=== PATIENT | female | born 1980 | race Caucasian/White ===

== ENCOUNTER 2020-04-24 14:09 | Inpatient (IN) ==
--- OUTSIDE RECORDS SUMMARY | 2020-04-24 14:12 | External Medical Summary | Continuity of Care Document ---
:1980 Author Name Missy Delarosa, Provider Address Unavailable Unavailable , Care Team Providers Name Role Phone Lucie Delarosa, [email or web address] [email or web address], NO Unavailable Unavailable Unavailable Unavailable Unavailable Problems Late care affecting , antepartum (V23.7) ( O09.30) Encounter for anatomic survey (V28.81) (Z36.89) Allergies and Adverse Reactions No Known Drug Allergies (Allergy) Medications Vitamins TABS Refills: 0 Procedures History of Oral Surgery Tooth Extraction Status: Completed History of Knee Surgery Status: Complete d History of Dilation And Curettage Status : Completed Immunizations Immunizations not documented Family History Mother Family history of kidney disease (V18.69) (Z84.1) Status: Ac tive Family history of systemic lupus erythematosus (V19.4) (Z82. 69) Status: Active Social History - Smoking Status Smoker Plan of Treatment Planned Observations Planned Goals not documented Results No Known Results Results not documented
[2020-04-24] MEDS ORDERED: MAGNESIUM SULFATE / D5W 1 GM/100 ML BAG IV ONE (15:13)
[2020-04-24] MEDS ORDERED: methylPREDNISolone 125 MG/2 ML VIAL IV STA (15:13)
[2020-04-24] MEDS ORDERED: ALBUTEROL HFA 8 GM INHALER INH ONE (15:29)
--- NOTE | 2020-04-24 15:37 | Emergency Department Note ---
History of Present Illness General Chief complaint: Shortness of Breath/Dyspnea Stated complaint: sob/dizzy Time Seen by Provider: 04/24/20 15:04 Source: patient, EMS, RN notes reviewed and old records reviewed Mode of arrival: EMS Limitations: no limitations History of Present Illness Provider complaint: Shortness of breath Onset (ago): month(s) 1 Location: chest Radiation: extremity (left shoulder) Severity: mild Pain Consistency: + now resolved Current Pain Intensity: 0 Quality: + aching Relieved By: + immobilization Exacerbated By: + movement Associated symptoms: + shortness of breath; no diaphoresis, no fever/chills, no loss of appetite and no nausea/vomiting Treatments prior to arrival: other (inhaler) This is a 40-year-old female who presents emergency department complaining of shortness of breath anytime the patient moves. The patient states that this is been ongoing for the past month. She reports 1 month ago when she woke up she was having left-sided chest pain that radiated into her extremity. She describes the pain as worse with deep breath. She reports she called her primary care physician who prescribed her steroids as well as an inhaler. The pain eventually went away however she still feels short of breath anytime she walks. Home Medications Home Medications Medication Instructions Recorded Confirmed Type albuterol sulfate 2 puff INHALATION Q4 PRN 04/24/20 04/24/20 History buprenorphine-naloxone 1.5 tab SUBLINGUAL UD 04/24/20 04/24/20 History Allergies Allergy/AdvReac Type Severity Reaction Status Date / Time mushroom Allergy Severe ANAPHYLAXIS Verified 04/24/20 15:29 onion Allergy Severe ANAPHYLAXIS Verified 04/24/20 15:29 tramadol Allergy Mild RASH AND Verified 04/24/20 15:29 ITCHING ketorolac Allergy Unknown RASH Verified 04/24/20 15:29 green peppers Allergy Severe ANAPHYLAXIS Uncoded 04/24/20 15:29 Plasencia Pepper Allergy Unknown ANAPHYLAXIS Uncoded 04/24/20 15:29 FROM GREEN PEPPER Past Med/Surg History Medical History Hepatomegaly Pleural effusion on left Pleural effusion on right Pulmonary edema Transaminitis Social History Preferred Language: Singaporean Communication Ability: Effective 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: No Beliefs That Will Affect Care: None Current Living Situation: Spouse and Family Feels Safe at Home: Yes Smoking Status: Current every day smoker Tobacco Type: cigarettes ; Cigarettes Per Day: 10 ; Hx Alcohol Use: Yes Alcohol type: hard liquor Hx Substance Use: No Review of Systems A total of 10 systems reviewed and were otherwise negative Physical Exam Vital Signs Vital Signs - 24 hr 04/24/20 14:18 04/24/20 14:26 04/24/20 14:29 Temperature 37.1 C Temperature Source Oral Pulse Rate 91 H 97 H 92 H Pulse Rate from SpO2 Sensor 92 H Respiratory Rate 20 22 22 Respiratory Effort / Characteristics Non-Labored Spontaneous Respiratory Depth Normal Respiratory Pattern Regular Blood Pressure 116/58 L 116/58 L Blood Pressure Mean 93 77 Pulse Oximetry 99 98 Oxygen Delivery Method Nasal Cannula Oxygen Flow Rate 2 Sepsis Recent Fever Within 48 Hours No Sepsis Action Taken by Nursing No Action Required 04/24/20 14:38 04/24/20 14:40 04/24/20 14:50 Temperature Temperature Source Pulse Rate 95 H 93 H 90 Pulse Rate from SpO2 Sensor 96 H 93 H 90 Respiratory Rate 13 29 H 17 Respiratory Effort / Characteristics Respiratory Depth Respiratory Pattern Blood Pressure Blood Pressure Mean Pulse Oximetry 80 L 96 93 Oxygen Delivery Method Nasal Cannula Nasal Cannula Oxygen Flow Rate 2 2 Sepsis Recent Fever Within 48 Hours Sepsis Action Taken by Nursing 04/24/20 15:00 04/24/20 15:05 04/24/20 15:22 Temperature Temperature Source Pulse Rate 87 90 Pulse Rate from SpO2 Sensor 86 Respiratory Rate 23 20 Respiratory Effort / Characteristics Respiratory Depth Respiratory Pattern Blood Pressure 98/52 L Blood Pressure Mean 62 Pulse Oximetry 94 97 96 Oxygen Delivery Method Nasal Cannula Nasal Cannula Nasal Cannula Oxygen Flow Rate 2 2 Sepsis Recent Fever Within 48 Hours Sepsis Action Taken by Nursing VITAL SIGNS - Vital signs and nursing notes were reviewed. GENERAL - 40-year-old female appearing stated age who is in no acute distress. Communicates well with provider and answers questions appropriately. SKIN - Without rashes. HEAD - NC/AT. EYES - PERRL with EOMI bilaterally. Sclera anicteric. Palpebral conjunctiva pink and moist with no injection noted. EARS - No deformities of external structures noted on gross examination bilaterally. No pain elicited with palpation of the tragus bilaterally. External auditory canals without discharge or otorrhea. Tympanic membranes pearly galarza without retraction or bulging. No fluid or purulent material visualized behind the TM. Handle of malleus, umbo, cone of light, pars tensa/flaccid all easily visualized. NOSE - Midline and without cyanosis. No epistaxis or purulent drainage noted. Septum midline without deviation or septal hematoma noted. MOUTH/OROPHARYNX - Without perioral cyanosis. Buccal mucosa pink and moist and without leukoplakia. Tongue midline with equal elevation of palate bilaterally. No tonsillar hypertrophy, erythema, or exudates noted. dentition noted. NECK - Neck with FROM. Supple to palpation. lymphadenopathy noted. No nuchal rigidity. LUNGS - Chest wall symmetric without accessory muscle use, intercostals retractions, or central cyanosis. Normal vesicular breath sounds CTA B/L. No wheezes, rales, or rhonchi appreciated. CARDIAC - RRR with S1/S2. No murmur, rubs, or gallops appreciated. ABDOMEN - Abdominal contour without pulsations or visible masses. BS normoactive all four quadrants. No tenderness, palpable masses, hepatosplenome kameron, or ascites noted. EXTREMITIES - No clubbing or peripheral cyanosis. No pretibial edema present. +3/5 radial, posterior tibial, and dorsalis pedis pulses palpated throughout. +5/5 strength noted in UE/LE bilaterally. NEUROLOGIC - Cranial nerves II through XII grossly intact. Sensory intact to light touch throughout. Patellar reflexes +2/4. PSYCH - A&Ox3 and cooperates fully with examiner. Pt is very pleasant and interacts well with examiner. Course Administered Medications Discontinued Medications Acetaminophen (Tylenol) 325 mg PO Q6H PRN PRN Reason: Mild Pain Stop: 05/24/20 21:10 Last Admin: 04/26/20 07:41 Dose: 325 mg Documented by: [id number] Admin: 04/25/20 22:07 Dose: 325 mg Documented by: [id number] Albuterol (Ventolin Hfa) 2 puffs INH NOW ONE Stop: 04/24/20 15:30 Last Admin: 04/24/20 15:36 Dose: 2 puffs Documented by: [id number] Aspirin (Ecotrin Ectab) 81 mg PO NOW STA Stop: 04/24/20 20:13 Last Admin: 04/24/20 20:54 Dose: 81 mg Documented by: [id number] Aspirin (Ecotrin Ectab) 81 mg PO [facility] Stop: 05/25/20 08:59 Last Admin: 04/26/20 07:43 Dose: 81 mg Documented by: [id number] Admin: 04/25/20 08:18 Dose: 81 mg Documented by: [id number] Buprenorphine/Naloxone (Suboxone 8 Mg/2 Mg) 0.5 tab SL TID ALLY Stop: 05/24/20 21:59 Last Admin: 04/26/20 21:25 Dose: Not Given Documented by: [id number] Admin: 04/26/20 15:49 Dose: 0.5 tab Documented by: [id number] Admin: 04/26/20 07:53 Dose: 0.5 tab Documented by: [id number] Admin: 04/25/20 21:35 Dose: 0.5 tab Documented by: [id number] Admin: 04/25/20 14:55 Dose: 0.5 tab Documented by: [id number] Admin: 04/25/20 08:22 Dose: 0.5 tab Documented by: [id number] Admin: 04/24/20 22:23 Dose: 0.5 tab Documented by: [id number] Enoxaparin Sodium (Lovenox) 40 mg SQ QAM [facility] Stop: 05/25/20 08:59 Last Admin: 04/26/20 07:44 Dose: 40 mg Documented by: [id number] Admin: 04/25/20 08:18 Dose: 40 mg Documented by: [id number] Ferrous Sulfate (Feosol) 325 mg PO TIDM [facility] Stop: 05/26/20 07:59 Last Admin: 04/26/20 17:04 Dose: 325 mg Documented by: [id number] Admin: 04/26/20 12:04 Dose: 325 mg Documented by: [id number] Admin: 04/26/20 07:42 Dose: 325 mg Documented by: [id number] Folic Acid (Folvite) 1 mg PO QAM ALLY Stop: 05/26/20 08:59 Last Admin: 04/26/20 07:42 Dose: 1 mg Documented by: [id number] Furosemide (Lasix) 40 mg IV NOW STA Stop: 04/24/20 18:33 Last Admin: 04/24/20 18:51 Dose: 40 mg Documented by: [id number] Magnesium Sulfate/Dextrose (Magnesium Sulfate / D5w) 1 gm in 100 mls @ 50 mls/hr IV ONE ONE Stop: 04/24/20 17:12 Last Infusion: 04/24/20 17:21 Dose: 0 mls/hr Documented by: [id number] Admin: 04/24/20 15:30 Dose: 50 mls/hr Documented by: [id number] Ceftriaxone Sodium (Rocephin) 2,000 mg in 70 mls @ 140 mls/hr IV NOW STA Stop: 04/24/20 17:09 Last Infusion: 04/24/20 18:50 Dose: 0 mls/hr Documented by: [id number] Admin: 04/24/20 18:18 Dose: 140 mls/hr Documented by: [id number] Lorazepam (Ativan) 0.25 mg in 0.5 mls @ 0.5 mls/min IV Q4H PRN PRN Reason: Anxiety Stop: 05/24/20 21:10 Last Admin: 04/26/20 12:17 Dose: 0.5 mls/min Documented by: [id number] Admin: 04/25/20 21:38 Dose: 0.5 mls/min Documented by: [id number] Furosemide 40 mg/ Albumin (Human) 54 mls @ 54 mls/hr IV BID ALLY Stop: 04/25/20 21:59 Last Infusion: 04/25/20 23:37 Dose: 0 mls/hr Documented by: [id number] Admin: 04/25/20 21:38 Dose: 54 mls/hr Documented by: [id number] Infusion: 04/25/20 10:55 Dose: 0 mls/hr Documented by: [id number] Admin: 04/25/20 08:14 Dose: 54 mls/hr Documented by: [id number] Magnesium Sulfate/Dextrose (Magnesium Sulfate / D5w) 1 gm in 100 mls @ 50 mls/hr IV Q2H ALLY Stop: 04/25/20 04:38 Last Infusion: 04/25/20 05:03 Dose: 0 mls/hr Documented by: [id number] Admin: 04/25/20 02:58 Dose: 50 mls/hr Documented by: [id number] Infusion: 04/25/20 02:58 Dose: 50 mls/hr Documented by: [id number] Admin: 04/25/20 01:06 Dose: 50 mls/hr Documented by: [id number] Infusion: 04/25/20 01:06 Dose: 50 mls/hr Documented by: [id number] Admin: 04/24/20 23:26 Dose: 50 mls/hr Documented by: [id number] Furosemide 40 mg/ Syringe 4 mls @ 4 mls/min IV Q12H ALLY Stop: 05/26/20 05:59 Last Admin: 04/26/20 17:04 Dose: 4 mls/min Documented by: [id number] Admin: 04/26/20 05:51 Dose: 4 mls/min Documented by: [id number] Furosemide 20 mg/ Syringe 2 mls @ 4 mls/min IV ONE ONE Stop: 04/26/20 12:31 Last Admin: 04/26/20 12:48 Dose: 4 mls/min Documented by: [id number] Lorazepam (Ativan) 0.5 mg in 1 mls @ 0.5 mls/min IV Q6H PRN PRN Reason: Anxiety/Agitation Stop: 05/26/20 12:43 Last Admin: 04/26/20 19:47 Dose: 0.5 mls/min Documented by: [id number] Methylprednisolone 125 mg/ (Syringe) 2 mls @ 1.5 mls/min IV NOW STA Stop: 04/26/20 20:50 Last Admin: 04/26/20 21:00 Dose: 1.5 mls/min Documented by: [id number] Dexmedetomidine HCl 200 mcg/ (Sodium Chloride) 50 mls @ 4.92 mls/hr IV .[id number] ALLY; Protocol Stop: 04/30/20 20:44 Last Admin: 04/26/20 21:01 Dose: 0.2 mcg/kg/hr, 4.9 mls/hr Documented by: [id number] Cosigned by: [id number] Lorazepam (Ativan) 1 mg in 2 mls @ 2 mls/min IV NOW STA Stop: 04/26/20 20:50 Last Admin: 04/26/20 21:25 Dose: Not Given Documented by: [id number] Lorazepam (Ativan) 0.5 mg in 1 mls @ 1 mls/min IV NOW STA Stop: 04/26/20 23:25 Last Admin: 04/26/20 23:28 Dose: 1 mls/min Documented by: [id number] Ioversol (Optiray 320 125ml) 120 ml IV ONCE PRN PRN Reason: Interaction Checking Stop: 04/28/20 18:00 Last Admin: 04/24/20 18:02 Dose: 120 ml Documented by: [id number] Lorazepam (Ativan) 0.25 mg PO NOW STA Stop: 04/25/20 00:16 Last Admin: 04/25/20 00:30 Dose: 0.25 mg Documented by: [id number] Menthol (Nice) 1 vu BUCCAL Q1H PRN PRN Reason: Sore Throat/cough Stop: 05/26/20 17:51 Last Admin: 04/26/20 18:26 Dose: 1 vu Documented by: [id number] Methylprednisolone (Solumedrol) 125 mg IV NOW STA Stop: 04/24/20 15:14 Last Admin: 04/24/20 15:30 Dose: 125 mg Documented by: [id number] Metoprolol Tartrate (Lopressor) 12.5 mg PO BID [facility] Stop: 05/25/20 08:59 Last Admin: 04/26/20 19:46 Dose: 12.5 mg Documented by: [id number] Admin: 04/26/20 07:43 Dose: Not Given Documented by: [id number] Admin: 04/25/20 21:37 Dose: 12.5 mg Documented by: [id number] Admin: 04/25/20 14:54 Dose: Not Given Documented by: [id number] Miscellaneous (Remove Nicoderm Patch) 1 ea N/A DAILY@[id number] [facility] Stop: 05/25/20 08:58 Last Admin: 04/26/20 07:44 Dose: 1 ea Documented by: [id number] Admin: 04/25/20 08:27 Dose: 1 ea Documented by: [id number] Nicotine (Nicoderm Cq) 21 mg TD QAM [facility] Stop: 05/24/20 21:10 Last Admin: 04/26/20 07:44 Dose: 21 mg Documented by: [id number] Admin: 04/25/20 08:18 Dose: 21 mg Documented by: [id number] Admin: 04/24/20 22:22 Dose: 21 mg Documented by: [id number] Ondansetron HCl (Zofran) 4 mg IV NOW STA Stop: 04/24/20 16:41 Last Admin: 04/24/20 17:26 Dose: Not Given Documented by: [id number] Potassium Chloride (Klor-Con M20) 40 meq PO NOW STA Stop: 04/24/20 16:41 Last Admin: 04/24/20 17:25 Dose: 40 meq Documented by: [id number] Potassium Chloride (Klor-Con M20) 20 meq PO BID ALLY Stop: 05/25/20 08:59 Last Admin: 04/26/20 19:46 Dose: 20 meq Documented by: [id number] Admin: 04/26/20 07:43 Dose: 20 meq Documented by: [id number] Admin: 04/25/20 21:36 Dose: 20 meq Documented by: [id number] Admin: 04/25/20 08:18 Dose: 20 meq Documented by: [id number] Potassium Chloride (Klor-Con M20) 40 meq PO NOW STA Stop: 04/24/20 21:12 Last Admin: 04/24/20 22:09 Dose: 40 meq Documented by: [id number] Medical Decision Making Differential Diagnosis Cardiac ischemia, aortic dissection, pulmonary embolism, pneumothorax, pneumonia, pericarditis, myocarditis, esophageal rupture, GERD, cholecystitis, pancreatitis, musculoskeletal, as well as other pathologies. Medical Records Attestation: I reviewed the patient's medical records. Home Medications Current Medication List: was personally reviewed by me Laboratory Data Attestation: I reviewed the patient's lab results. Result diagrams: 04/26/20 20:25 04/26/20 21:39 Lab Results 04/24/20 04/24/20 04/24/20 Range/Units 15:20 15:20 15:44 WBC 9.96 (4.8-10.8) K/uL RBC 2.67 L (4.2-5.4) M/uL Hgb 8.7 L (12.0-16.0) g/dL Hct 26.9 L (37-47) % MCV 100.7 H (80-100) fL MCH 32.6 (25-34) pg MCHC 32.3 (32-36) g/dL RDW Std Deviation 69.5 H (36.4-46.3) fL RDW Coeff of Christine 19.2 H (11.5-14.5) % Plt Count 304 (130-400) K/uL MPV 10.2 (7.4-10.4) fL Immature Gran % (Auto) 0.2 % Neut % (Auto) 80.6 % Lymph % (Auto) 10.7 % [place] % (Auto) 7.8 % Eos % (Auto) 0.4 % Baso % (Auto) 0.3 % Reticulocyte % (Auto) 4.8 H (0.5-2.0) % Immature Gran # (Auto) 0.02 (0.00-0.02) K/uL Neut # (Auto) 8.02 H (1.4-6.5) K/uL Lymph # (Auto) 1.07 L (1.2-3.4) K/uL [place] # (Auto) 0.78 H (0.11-0.59) K/uL Eos # (Auto) 0.04 (0-0.5) K/uL Baso # (Auto) 0.03 (0-0.2) K/uL Reticulocyte # 0.13 H (0.02-0.10) 10^6/uL Absolute Nucleated RBC 0.00 (0-0) K/uL Nucleated RBC % (auto) 0.0 % ESR (0-21) mm/hr PT (9.0-12.0) Seconds INR (0.9-1.1) APTT (21.0-31.0) Seconds PTT Ratio D-Dimer (0-500) ug/L FEU Sodium (136-145) mmol/L Potassium (3.5-5.1) mmol/L Chloride (98-107) mmol/L Carbon Dioxide (21-32) mmol/L Anion Gap (3-11) BUN (7-18) mg/dl Creatinine (0.6-1.2) mg/dl Est Cr Clr Drug Dosing ml/min Est GFR ( Amer) Est GFR (Non-Af Amer) BUN/Creatinine Ratio (10-20) Glucose (70-99) mg/dl Calcium (8.5-10.1) mg/dl Ferritin (8-388) ng/ml Total Bilirubin (0.2-1) mg/dl AST (15-37) U/L ALT (12-78) U/L Alkaline Phosphatase (45-117) U/L Lactate Dehydrogenase (84-246) U/L Total Creatine Kinase (26-192) U/L CK-MB (CK-2) (0.5-3.6) ng/ml CK/CKMB % Calc Troponin I (0-0.045) ng/ml C-Reactive Protein (0-0.29) mg/dl NT-Pro-B Natriuret Pep (0-450) pg/ml Total Protein (6.4-8.2) gm/dl Albumin (3.4-5.0) gm/dl Globulin (2.5-4.0) gm/dl Albumin/Globulin Ratio (0.9-2) Lipase (73-393) U/L Urine Color Dark Yellow Urine Appearance Cloudy A (Clear) Urine pH 5.5 (4.5-7.5) Ur Specific [place] 1.016 (1.000-1.030) Urine Protein 3+ H (Negative) Urine Glucose (UA) Negative (Negative) Urine Ketones Trace H (Negative) Urine Blood 3+ H (Negative) Urine Nitrite Positive A (Negative) Urine Bilirubin 2+ H (Negative) Urine Urobilinogen Positive H (Negative) Ur Leukocyte Esterase 1+ H (Negative) Urine WBC (Auto) 10-30 H (0-5) /hpf Urine RBC (Auto) >30 H (0-4) /hpf U Hyaline Cast (Auto) 5-10 H (0-5) /lpf U Epithel Cells (Auto) >30 H (0-5) /lpf Urine Bacteria (Auto) Negative (Negative) Urine Test Negative (Negative) Blood Type Antibody Screen 04/24/20 04/24/20 04/24/20 Range/Units 15:44 15:44 15:44 WBC (4.8-10.8) K/uL RBC (4.2-5.4) M/uL Hgb (12.0-16.0) g/dL Hct (37-47) % MCV (80-100) fL MCH (25-34) pg MCHC (32-36) g/dL RDW Std Deviation (36.4-46.3) fL RDW Coeff of Christine (11.5-14.5) % Plt Count (130-400) K/uL MPV (7.4-10.4) fL Immature Gran % (Auto) % Neut % (Auto) % Lymph % (Auto) % [place] % (Auto) % Eos % (Auto) % Baso % (Auto) % Reticulocyte % (Auto) (0.5-2.0) % Immature Gran # (Auto) (0.00-0.02) K/uL Neut # (Auto) (1.4-6.5) K/uL Lymph # (Auto) (1.2-3.4) K/uL [place] # (Auto) (0.11-0.59) K/uL Eos # (Auto) (0-0.5) K/uL Baso # (Auto) (0-0.2) K/uL Reticulocyte # (0.02-0.10) 10^6/uL Absolute Nucleated RBC (0-0) K/uL Nucleated RBC % (auto) % ESR 76 H (0-21) mm/hr PT 15.2 H (9.0-12.0) Seconds INR 1.5 H (0.9-1.1) APTT 28.8 (21.0-31.0) Seconds PTT Ratio 1.0 D-Dimer 6300 H* (0-500) ug/L FEU Sodium 133 L (136-145) mmol/L Potassium 3.3 L (3.5-5.1) mmol/L Chloride 97 L (98-107) mmol/L Carbon Dioxide 27 (21-32) mmol/L Anion Gap 9.0 (3-11) BUN 23 H (7-18) mg/dl Creatinine 1.18 (0.6-1.2) mg/dl Est Cr Clr Drug Dosing 74.6 ml/min Est GFR ( Amer) 67.8 Est GFR (Non-Af Amer) 58.5 BUN/Creatinine Ratio 19.1 (10-20) Glucose 83 (70-99) mg/dl Calcium 6.9 L (8.5-10.1) mg/dl Ferritin 87.6 (8-388) ng/ml Total Bilirubin 2.4 H (0.2-1) mg/dl AST 51 H (15-37) U/L ALT 14 (12-78) U/L Alkaline Phosphatase 158 H (45-117) U/L Lactate Dehydrogenase (84-246) U/L Total Creatine Kinase 79 (26-192) U/L CK-MB (CK-2) < 1.0 (0.5-3.6) ng/ml CK/CKMB % Calc TNP Troponin I < 0.015 (0-0.045) ng/ml C-Reactive Protein 2.86 H (0-0.29) mg/dl NT-Pro-B Natriuret Pep 984 H (0-450) pg/ml Total Protein 7.6 (6.4-8.2) gm/dl Albumin 2.5 L (3.4-5.0) gm/dl Globulin 5.1 H (2.5-4.0) gm/dl Albumin/Globulin Ratio 0.5 L (0.9-2) Lipase 81 (73-393) U/L Urine Color Urine Appearance (Clear) Urine pH (4.5-7.5) Ur Specific [place] (1.000-1.030) Urine Protein (Negative) Urine Glucose (UA) (Negative) Urine Ketones (Negative) Urine Blood (Negative) Urine Nitrite (Negative) Urine Bilirubin (Negative) Urine Urobilinogen (Negative) Ur Leukocyte Esterase (Negative) Urine WBC (Auto) (0-5) /hpf Urine RBC (Auto) (0-4) /hpf U Hyaline Cast (Auto) (0-5) /lpf U Epithel Cells (Auto) (0-5) /lpf Urine Bacteria (Auto) (Negative) Urine Test (Negative) Blood Type Antibody Screen 04/24/20 04/24/20 Range/Units 15:44 16:46 WBC (4.8-10.8) K/uL RBC (4.2-5.4) M/uL Hgb (12.0-16.0) g/dL Hct (37-47) % MCV (80-100) fL MCH (25-34) pg MCHC (32-36) g/dL RDW Std Deviation (36.4-46.3) fL RDW Coeff of Christine (11.5-14.5) % Plt Count (130-400) K/uL MPV (7.4-10.4) fL Immature Gran % (Auto) % Neut % (Auto) % Lymph % (Auto) % [place] % (Auto) % Eos % (Auto) % Baso % (Auto) % Reticulocyte % (Auto) (0.5-2.0) % Immature Gran # (Auto) (0.00-0.02) K/uL Neut # (Auto) (1.4-6.5) K/uL Lymph # (Auto) (1.2-3.4) K/uL [place] # (Auto) (0.11-0.59) K/uL Eos # (Auto) (0-0.5) K/uL Baso # (Auto) (0-0.2) K/uL Reticulocyte # (0.02-0.10) 10^6/uL Absolute Nucleated RBC (0-0) K/uL Nucleated RBC % (auto) % ESR (0-21) mm/hr PT (9.0-12.0) Seconds INR (0.9-1.1) APTT (21.0-31.0) Seconds PTT Ratio D-Dimer (0-500) ug/L FEU Sodium (136-145) mmol/L Potassium (3.5-5.1) mmol/L Chloride (98-107) mmol/L Carbon Dioxide (21-32) mmol/L Anion Gap (3-11) BUN (7-18) mg/dl Creatinine (0.6-1.2) mg/dl Est Cr Clr Drug Dosing ml/min Est GFR ( Amer) Est GFR (Non-Af Amer) BUN/Creatinine Ratio (10-20) Glucose (70-99) mg/dl Calcium (8.5-10.1) mg/dl Ferritin (8-388) ng/ml Total Bilirubin (0.2-1) mg/dl AST (15-37) U/L ALT (12-78) U/L Alkaline Phosphatase (45-117) U/L Lactate Dehydrogenase 260 H (84-246) U/L Total Creatine Kinase (26-192) U/L CK-MB (CK-2) (0.5-3.6) ng/ml CK/CKMB % Calc Troponin I (0-0.045) ng/ml C-Reactive Protein (0-0.29) mg/dl NT-Pro-B Natriuret Pep (0-450) pg/ml Total Protein (6.4-8.2) gm/dl Albumin (3.4-5.0) gm/dl Globulin (2.5-4.0) gm/dl Albumin/Globulin Ratio (0.9-2) Lipase (73-393) U/L Urine Color Urine Appearance (Clear) Urine pH (4.5-7.5) Ur Specific [place] (1.000-1.030) Urine Protein (Negative) Urine Glucose (UA) (Negative) Urine Ketones (Negative) Urine Blood (Negative) Urine Nitrite (Negative) Urine Bilirubin (Negative) Urine Urobilinogen (Negative) Ur Leukocyte Esterase (Negative) Urine WBC (Auto) (0-5) /hpf Urine RBC (Auto) (0-4) /hpf U Hyaline Cast (Auto) (0-5) /lpf U Epithel Cells (Auto) (0-5) /lpf Urine Bacteria (Auto) (Negative) Urine Test (Negative) Blood Type A Positive Antibody Screen NEGATIVE Imaging Data Radiologist's Impression: [place], [place] [phone] CT Scan Report Patient: ELYSSA MURRAYAdmit Date: 04/24/20 MR#: [id number]: [address] Acct ID:[id number]: Date: 1980[facility] Zip: [place] [id number] Age: 40Location: ED Sex: F Room/Bed: Att Phy:Diagnosis: sob/dizzy Elva Phy: PCP,NOService Date: 04/24/20 Fam Phy:Interpreting Phy: Jeff Ferrera MD Admit Phy: Ordering Phy: Gary Brown MD cc: ~ CT ANGIOGRAM OF THE CHEST; CT SCAN OF THE ABDOMEN AND PELVIS WITH IV CONTRAST CLINICAL HISTORY: Abdominal distention. Dyspnea. COMPARISON STUDY: Chest x-ray dated 04/24/2020. Lumbar spine radiographs dated 07/25/2012. TECHNIQUE: Following the IV administration of 120 of Optiray 320, CT angiogram of the chest is performed from the upper abdomen to the thoracic inlet utilizing the pulmonary embolus protocol. Images are reviewed in the axial, sagittal, coronal planes. 3-D MIPS images are created and assessed. Subsequently, CT scan of the abdomen and pelvis was performed from the lung bases to the proximal femora. Images are reviewed in the axial, sagittal, and coronal planes. IV contrast was administered without complication. A dose lowering technique was utilized adhering to the principles of ALARA. The Examination is degraded by motion artifact. There is also streak artifact from the body wall abutting the CT gantry. CT DOSE: 1536.90 mGycm FINDINGS: CHEST: Thyroid: Imaged portions of the thyroid gland are normal in size and attenuation. Thoracic aorta: The thoracic aorta is normal in caliber and demonstrates standard 3-vessel arch anatomy. No dissection is seen. Pulmonary vasculature: The pulmonary trunk is dilated, measuring 3.9 cm in transverse diameter. This suggests pulmonary artery hypertension. There are no filling defects identified in the main, lobar, or proximal segmental pulmonary arteries to indicate pulmonary embolus. Evaluation of the peripheral branches is degraded by motion artifact. Heart: The heart is mildly enlarged and without pericardial effusion. Lungs and pleural spaces: Evaluation of the lung parenchyma is degraded by motion artifact. There are small left and moderate right pleural effusions with associated atelectasis. Intralobular septal thickening is noted. Groundglass opacities are seen throughout both lungs. Mediastinum: There are mildly enlarged mediastinal lymph nodes. A prevascular node on image #193 measures 11 mm in short axis. Peritracheal nodes measure up to 12 mm in short axis. Muna: Clear. Axillae: There is no axillary lymphadenopathy. Bony thorax: No lytic or blastic lesions are identified. ABDOMEN AND PELVIS: Liver: The contrast-enhanced liver is markedly enlarged, measuring 26.1 cm in length. The liver demonstrates diffusely and heterogeneously diminished attenuation consistent with hepatic steatosis. There is no intrahepatic or ductal dilatation. The hepatic veins and portal veins are patent. Gallbladder: Unremarkable. Spleen: The spleen is enlarged measuring 14.1 cm in length. Pancreas: Atrophic and grossly unremarkable. Adrenal glands: Unremarkable. Kidneys: The contrast enhanced kidneys are normal in size and without hydronephrosis. The kidneys enhance symmetrically. Abdominal vasculature: The abdominal aorta is normal in course and caliber. Bowel: There is no bowel obstruction. The appendix is not clearly identified. Peritoneum: There is a small volume of abdominopelvic ascites. No intraperitoneal free air is seen. Lymphadenopathy: None. Pelvic viscera: The bladder, uterus, and adnexa are normal as visualized. There are bilateral ovarian follicles. Skeletal structures: No lytic or blastic lesions are seen. Soft tissues: There is body wall edema. IMPRESSION: 1. There is no evidence of pulmonary embolus in the main, lobar, or proximal segmental pulmonary arteries. 2. Cardiomegaly with evidence of pulmonary artery hypertension and congestive failure. 3. There are diffuse patchy groundglass opacities, likely representing in terstitial edema. Correlate clinically for evidence of a superimposed infectious/inflammatory pneumonitis. 4. Moderate right and small left pleural effusions with associated atelectasis. 6. No acute infectious or inflammatory findings are identified in the abdomen or pelvis. 7. Marked hepatomegaly with evidence of severe hepatic steatosis. 8. Mild splenomegaly. 9. Small volume of abdominopelvic ascites. 10. Mildly enlarged mediastinal lymph nodes are nonspecific and may be reactive basis. 11. Additional findings as above. ACT 112: Negative or not required by law. Electronically signed by: Jeff Ferrera M.D. 04/24/2020 6:27 PM Dictated: 04/24/201813 Transcribed: 04/24/201813 [place], [place] [phone] XRay Report Patient: ELYSSA MURRAYAdmit Date: 04/24/20 MR#: [id number]: [address] Acct ID:[id number]: Date: 1980City Zip: [place] [address] Age: 40Location: ED Sex: F Room/Bed: Att Phy:Diagnosis: sob/dizzy Elva Phy: PCP,NOService Date: 04/24/20 Fam Phy:Interpreting Phy: Jeff Ferrera MD Admit Phy: Ordering Phy: Gary Brown MD cc: ~ SINGLE VIEW CHEST CLINICAL HISTORY: Atypical chest pain. FINDINGS: 2 AP, portable, upright chest radiographs are obtained. No prior studies are available for comparison at the time of dictation. The examination is degraded by portable technique and patient rotation. The heart is enlarged. There is pulmonary vascular congestion with evidence of interstitial edema. Small pleural effusions are suspected. Bibasilar opacities likely represent at electasis. No pneumothorax is seen. The bony thorax is grossly intact. IMPRESSION: 1. Cardiomegaly with evidence of congestive failure and interstitial edema. 2. Suspect small pleural effusions. 3. Bibasilar opacities likely represent atelectasis. Clinical correlation will be required. ACT 112: Negative or not required by law. Electronically signed by: Jeff Ferrera M.D. 04/24/2020 4:11 PM Dictated: 04/24/201609 Transcribed: 04/24/201609 ECG Data Attestation: I personally reviewed and interpreted this ECG as follows: Indication: + SOB/dyspnea Rate (beats per minute): 92 Rhythm: + normal sinus ECG Intervals/blocks: + Normal QT-c (502) ECG [place]: + Normal ECG ST segments: no ST depression and no ST elevation ECG Findings: + Q waves (Inferior) Comparison ECG Date: no prior available MDM Narrative Patient was seen and evaluated as above. Review was performed of nursing notes and vital signs. I did review pertinent previous visits and patient history. After obtaining a thorough history and physical examination the above work up was performed. This is a 40-year-old female presents the emergency department complaining of chest pain. She does have an elevation in her white blood cell count and appears to have pneumonia on chest x-ray. I did discuss the case with the hospital service who did agree to admit the patient. Patient is in agreement with the treatment plan. An order was placed for continuous cardiac monitoring. The monitor shows a rate of 97 with Normal Sinus rhythm. The patient was evaluated during the global COVID-19 pandemic, and that diagnosis was suspected/considered upon their initial presentation. Their evaluation, treatment and testing was consistent with current guidelines for patients who present with complaints or symptoms that may be related to COVID- 19. Impression & Plan Pneumonitis Discharge Plan Visit Data *Final* Discharge Date/Time: 04/24/20 21:00 Chief Complaint: Shortness of Breath/Dyspnea Stated Complaint: sob/dizzy ED Provider: Gary Brown Discharge Problem: Pneumonitis Patient Disposition: Admitted As Inpatient Condition: Serious Discharge Instructions Interventions: ED Discharge Assessment Last Done: 04/24/20 21:00
[2020-04-24 16:03] LABS: Basophils # (auto) 0.03 K/uL (0-0.2); Basophils % (auto) 0.3 %; Eosinophils # (auto) 0.04 K/uL (0-0.5); Eosinophils % (auto) 0.4 %; Hematocrit (blood only) 26.9 % (37-47); Hemoglobin 8.7 g/dL (12.0-16.0); Immature Granulocytes # (auto) 0.02 K/uL (0.00-0.02); Immature Granulocytes % (auto) 0.2 %; Lymphocytes # (auto) 1.07 K/uL (1.2-3.4); Lymphocytes % (auto) 10.7 %; Mean Corpuscular Hemoglobin 32.6 pg (25-34); Mean Corpuscular Hgb Conc 32.3 g/dL (32-36); Mean Corpuscular Volume 100.7 fL (80-100); Mean Platelet Volume 10.2 fL (7.4-10.4); Monocytes # (auto) 0.78 K/uL (0.11-0.59); Monocytes % (auto) 7.8 %; Neutrophils # (auto) 8.02 K/uL (1.4-6.5); Neutrophils % (auto) 80.6 %; Platelet Count 304 K/uL (130-400); RDW Coefficient of Variation 19.2 % (11.5-14.5); RDW Standard Deviation 69.5 fL (36.4-46.3); Red Blood Count 2.67 M/uL (4.2-5.4); White Blood Count 9.96 K/uL (4.8-10.8)
[2020-04-24 16:05] LABS: Appearance Urine Cloudy (Clear); Bacteria Urine Automated Negative (Negative); Blood Urine 3+ (Negative); Color Urine Dark Yellow; Epithelial Cell Urine Auto >30 /lpf (0-5); Glucose Urine UA Negative (Negative); Ketones Urine Trace (Negative); Leukocyte Esterase Urine 1+ (Negative); Nitrite Urine Positive (Negative); Protein Urine 3+ (Negative); RBC Urine Automated >30 /hpf (0-4); Specific Gravity Urine 1.016 (1.000-1.030); Urobilinogen Urine Positive (Negative); pH Urine 5.5 (4.5-7.5)
[2020-04-24 16:07] LABS: Bilirubin Urine 2+ (Negative)
[2020-04-24 16:09] LABS: Ictotest Urine Positive (Negative); Pregnancy Test, Urine Negative (Negative)
--- NOTE | 2020-04-24 16:12 | XRay Report ---
SINGLE VIEW CHEST CLINICAL HISTORY: Atypical chest pain. FINDINGS: 2 AP, portable, upright chest radiographs are obtained. No prior studies are available for comparison at the time of dictation. The examination is degraded by portable technique and patient ro tation. The heart is enlarged. There is pulmonary vascular congestion with evidence of interstitial e familia. Small pleural effusions are suspected. Bibasilar opacities likely represent atelectasis. No pne umothorax is seen. The bony thorax is grossly intact. IMPRESSION: 1. Cardiomegaly with evidence of congestive failure and interstitial edema. 2. Suspect small pleural effusions. 3. Bibasilar opacities likely represent atelectasis. Clinical correlation will be required. ACT 112: Negative or not required by law. Electronically signed by: Jeff Ferrera M.D. 04/24/2020 4:11 PM
[2020-04-24 16:21] LABS: Alanine Aminotransferase 14 U/L (12-78); Albumin Level 2.5 gm/dl (3.4-5.0); Aspartate Aminotransferase 51 U/L (15-37); BUN Creatinine Ratio 19.1 (10-20); Blood Urea Nitrogen 23 mg/dl (7-18); Calcium 6.9 mg/dl (8.5-10.1); Carbon Dioxide 27 mmol/L (21-32); Chloride 97 mmol/L (98-107); Creatinine Clr Calc Pharmacy 74.6 ml/min; Est GFR (African American) 67.8; Est GFR (Non-African American) 58.5; Glucose 83 mg/dl (70-99); Lipase 81 U/L (73-393); Potassium 3.3 mmol/L (3.5-5.1); Sodium 133 mmol/L (136-145)
[2020-04-24 16:24] LABS: INR 1.5 (0.9-1.1); Partial Thromboplastin Time 28.8 Seconds (21.0-31.0); Prothrombin Time 15.2 Seconds (9.0-12.0)
[2020-04-24 16:28] LABS: Albumin Globulin Ratio 0.5 (0.9-2); Alkaline Phosphatase 158 U/L (45-117); Bilirubin,Total 2.4 mg/dl (0.2-1); C Reactive Protein 2.86 mg/dl (0-0.29); Creatine Kinase 79 U/L (26-192); Creatine Kinase MB < 1.0 ng/ml (0.5-3.6); Ferritin 87.6 ng/ml (8-388); Globulin 5.1 gm/dl (2.5-4.0); NT Pro B Type Natriuretic Pept 984 pg/ml (0-450); Total Protein 7.6 gm/dl (6.4-8.2); Troponin I < 0.015 ng/ml (0-0.045)
[2020-04-24] MEDS ORDERED: ONDANSETRON INJ 2 MG/ML 2 ML VIAL IV STA (16:40)
[2020-04-24] MEDS ORDERED: cefTRIAXone SODIUM 2,000 MG/70 ML BAG IV STA (16:40)
[2020-04-24] MEDS ORDERED: POTASSIUM CHLORIDE 20 MEQ TABCR PO STA ×2 (16:40→21:11)
[2020-04-24 16:41] LABS: D Dimer 6300 ug/L FEU (0-500)
[2020-04-24 16:48] LABS: Reticulocyte % 4.8 % (0.5-2.0); Reticulocytes # 0.13 10^6/uL (0.02-0.10)
[2020-04-24] MEDS ORDERED: OPTIRAY 320 125ml IV PRN (18:01)
--- NOTE | 2020-04-24 18:29 | CT Scan Report ---
CT ANGIOGRAM OF THE CHEST; CT SCAN OF THE ABDOMEN AND PELVIS WITH IV CONTRAST CLINICAL HISTORY: Abdominal distention. Dyspnea. COMPARISON STUDY: Chest x-ray dated 04/24/2020. Lumbar spine radiographs dated 07/25/2012. TECHNIQUE: Following the IV administration of 120 of Optiray 320, CT angiogram of the chest is perfor med from the upper abdomen to the thoracic inlet utilizing the pulmonary embolus protocol. Images are reviewed in the axial, sagittal, coronal planes. 3-D MIPS images are created and assessed. Subsequen tly, CT scan of the abdomen and pelvis was performed from the lung bases to the proximal femora. Imag es are reviewed in the axial, sagittal, and coronal planes. IV contrast was administered without comp lication. A dose lowering technique was utilized adhering to the principles of ALARA. The Examination is degraded by motion artifact. There is also streak artifact from the body wall abutting the CT bal try. CT DOSE: 1536.90 mGycm FINDINGS: CHEST: Thyroid: Imaged portions of the thyroid gland are normal in size and attenuation. Thoracic aorta: The thoracic aorta is normal in caliber and demonstrates standard 3-vessel arch anato my. No dissection is seen. Pulmonary vasculature: The pulmonary trunk is dilated, measuring 3.9 cm in transverse diameter. This suggests pulmonary artery hypertension. There are no filling defects identified in the main, lobar, o r proximal segmental pulmonary arteries to indicate pulmonary embolus. Evaluation of the peripheral b ranches is degraded by motion artifact. Heart: The heart is mildly enlarged and without pericardial effusion. Lungs and pleural spaces: Evaluation of the lung parenchyma is degraded by motion artifact. There are small left and moderate right pleural effusions with associated atelectasis. Intralobular septal thi ckening is noted. Groundglass opacities are seen throughout both lungs. Mediastinum: There are mildly enlarged mediastinal lymph nodes. A prevascular node on image #193 val ures 11 mm in short axis. Peritracheal nodes measure up to 12 mm in short axis. Muna: Clear. Axillae: There is no axillary lymphadenopathy. Bony thorax: No lytic or blastic lesions are identified. ABDOMEN AND PELVIS: Liver: The contrast-enhanced liver is markedly enlarged, measuring 26.1 cm in length. The liver demon strates diffusely and heterogeneously diminished attenuation consistent with hepatic steatosis. There is no intrahepatic or ductal dilatation. The hepatic veins and portal veins are patent. Gallbladder: Unremarkable. Spleen: The spleen is enlarged measuring 14.1 cm in length. Pancreas: Atrophic and grossly unremarkable. Adrenal glands: Unremarkable. Kidneys: The contrast enhanced kidneys are normal in size and without hydronephrosis. The kidneys enh ance symmetrically. Abdominal vasculature: The abdominal aorta is normal in course and caliber. Bowel: There is no bowel obstruction. The appendix is not clearly identified. Peritoneum: There is a small volume of abdominopelvic ascites. No intraperitoneal free air is seen. Lymphadenopathy: None. Pelvic viscera: The bladder, uterus, and adnexa are normal as visualized. There are bilateral ovarian follicles. Skeletal structures: No lytic or blastic lesions are seen. Soft tissues: There is body wall edema. IMPRESSION: 1. There is no evidence of pulmonary embolus in the main, lobar, or proximal segmental pulmonary angy sagar. 2. Cardiomegaly with evidence of pulmonary artery hypertension and congestive failure. 3. There are diffuse patchy groundglass opacities, likely representing interstitial edema. Correlate clinically for evidence of a superimposed infectious/inflammatory pneumonitis. 4. Moderate right and small left pleural effusions with associated atelectasis. 6. No acute infectious or inflammatory findings are identified in the abdomen or pelvis. 7. Marked hepatomegaly with evidence of severe hepatic steatosis. 8. Mild splenomegaly. 9. Small volume of abdominopelvic ascites. 10. Mildly enlarged mediastinal lymph nodes are nonspecific and may be reactive basis. 11. Additional findings as above. ACT 112: Negative or not required by law. Electronically signed by: Jeff Ferrera M.D. 04/24/2020 6:27 PM
[2020-04-24] MEDS ORDERED: FUROSEMIDE 40 MG/4 ML VIAL IV STA (18:32)
[2020-04-24] MEDS ORDERED: ASPIRIN 81 MG ECTAB PO STA (20:12)
--- NOTE | 2020-04-24 20:12 | History & Physical Report ---
Date of Service April 24, 2020 Assessment & Plan (1) Acute hypoxemic respiratory failure: New onset heart failure Rule out ischemic etiology given chest pain complaints from last month without the benefit of medical evaluation at time of occurrence Rule out sleep disordered breathing given non-restorative sleep complaints, patient body habitus, pulmonary hypertension on imaging. Acute on chronic anemia baseline hemoglobin of 10 as of 2015 Possible new baseline Chronic liver disease Possible cirrhosis New diagnosis mood disorder, at baseline hypothyroidism as per records, currently not on medications chronic pain on Suboxone Rx ongoing tobacco abuse. PCU Diuretic Rx Initiate low-dose beta-linda Strict I/Os, daily weights, CHF education Aspirin for CAD prevention until ischemic etiology of CHF ruled out TTE, Cardiology consult RE new onset CHF Outpatient GI consult for work-up of chronic liver disease on imaging Anemia work-up, transfuse PRBC if hemoglobin less than 8 and or for symptomatic anemia Update TSH Nicotine patch DVT prophylaxis Lovenox subcu Full code Text document was generated using [employer] voice recognition software. It may contain grammatical or spelling errors. Kindly contact undersigned for clarification of any documentation item in qu estion. History of Present Illness Respectively Chief Complaint: Shortness of breath, hypoxemia Primary Care Provider: NO PCP History obtained from patient and records. Medical history significant for chronic anemia (baseline hemoglobin of 10 as of 2015), mood disorder, PCOS, hypothyroidism as per records, chronic pain on Suboxone Rx, ongoing tobacco abuse. Last confinement 2015 under obstetrics service for care after sp ontaneous childbirth at home. About 6 weeks ago, patient had achy, pleuritic left-sided chest pain going to her left arm and back with shortness of breath without cough or flulike symptoms. No fever, no chills. Patient called a local urgent care center to ask if she needed to go to the emergency room to get checked out for her symptoms. Patient claims she was told to just stay home for possible viral infection/pneumonia. Chest pain subsided after 2 weeks. Patient denies unusual stress at home. Patient unaware of any snoring symptoms when asleep. Admits to not being rested despite hours of sleep the night before. About 2 weeks ago, patient noted worsening shortness of breath especially on exertion along with fluid retention, bilateral leg swelling and abdominal distention. No actual chest pain. Worsening shortness of breath today. O2 sats noted after using [id number]'s home pulse ox was 80%. At the ER, patient given Lasix and Solu-Medrol for CHF and possible asthma attack, respectively. Patient currently breathing better. 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 Allergies Allergy/AdvReac Type Severity Reaction Status Date / Time mushroom Allergy Severe ANAPHYLAXIS Verified 04/24/20 15:29 onion Allergy Severe ANAPHYLAXIS Verified 04/24/20 15:29 tramadol Allergy Mild RASH AND Verified 04/24/20 15:29 ITCHING ketorolac Allergy Unknown RASH Verified 04/24/20 15:29 green peppers Allergy Severe ANAPHYLAXIS Uncoded 04/24/20 15:29 Plasencia Pepper Allergy Unknown ANAPHYLAXIS Uncoded 04/24/20 15:29 FROM GREEN PEPPER Home Medications Home Medications Medication Instructions Recorded Confirmed Type albuterol sulfate 2 puff INHALATION Q4 PRN 04/24/20 04/24/20 History buprenorphine-naloxone 1.5 tab SUBLINGUAL UD 04/24/20 04/24/20 History Past Med/Surg History Social History Preferred Language: Urdu Communication Ability: Effective Top Cleaner Required: No Beliefs That Will Affect Care: None Current Living Situation: Spouse and Family Other Information That Helps Us Care for You: No Feels Safe at Home: Yes Safety Concerns: Feels Safe At This Time Smoking Status: Current every day smoker Tobacco Type: cigarettes ; Cigarettes Per Day: 10 ; Tobacco Cessation Education Requested by Patient: No Hx Alcohol Use: Yes Alcohol type: hard liquor Hx Substance Use: No Review of Systems Review of Systems: As per HPI, all 10 systems reviewed, all other ROS negative Physical Exam Physical Exam: GENERAL: Comfortable, slightly anxious, obese, no respiratory distress, looks older than stated age SKIN: Pallor, warm HEENT: Pale palpebral conjunctivae, no ptosis, dry buccal mucosa, nasal cannula in place NECK : Supple, short neck, no tenderness CHEST : Decreased breath sounds, occasional expiratory wheezes, no tenderness HEART : RRR, no obvious murmurs ABDOMEN: Some distention, nontender EXTREMITIES : Bilateral LE swelling/tenderness, no other conspicuous deformities noted NEUROLOGIC : Coherent, no facial asymmetry, no other gross focality Results & Data Results & Data ([facility]) Vital Signs (Past 12 Hours) Vital Signs Temp Pulse Resp BP Pulse Ox 04/24/20 20:00 92 H 23 96 04/24/20 19:30 85 20 95 04/24/20 19:00 85 16 99/48 L 94 04/24/20 18:30 84 22 108/69 94 04/24/20 18:22 91 H 15 112/64 91 04/24/20 18:02 91 H 90 04/24/20 17:30 92 H 23 87 L 04/24/20 17:06 78 L 04/24/20 16:57 88 32 H 99/50 L 90 04/24/20 16:30 86 23 93/48 L 86 L 04/24/20 16:00 88 32 H 97/51 L 86 L 04/24/20 15:30 91 H 23 110/54 L 99 04/24/20 15:22 90 20 96 04/24/20 15:05 97 04/24/20 15:00 87 23 98/52 L 94 04/24/20 14:50 90 17 93 04/24/20 14:40 93 H 29 H 96 04/24/20 14:38 95 H 13 80 L 04/24/20 14:29 92 H 22 04/24/20 14:26 37.1 C 97 H 22 116/58 L 98 04/24/20 14:18 91 H 20 116/58 L 99 Laboratory Results Laboratory Results WBC 9.96 K/uL (4.8-10.8) 04/24/20 15:44 RBC 2.67 M/uL (4.2-5.4) L 04/24/20 15:44 Hgb 8.7 g/dL (12.0-16.0) L 04/24/20 15:44 Hct 26.9 % (37-47) L 04/24/20 15:44 MCV 100.7 fL (80-100) H 04/24/20 15:44 MCH 32.6 pg (25-34) 04/24/20 15:44 MCHC 32.3 g/dL (32-36) 04/24/20 15:44 RDW Std Deviation 69.5 fL (36.4-46.3) H 04/24/20 15:44 RDW Coeff of Christine 19.2 % (11.5-14.5) H 04/24/20 15:44 Plt Count 304 K/uL (130-400) 04/24/20 15:44 MPV 10.2 fL (7.4-10.4) 04/24/20 15:44 Immature Gran % (Auto) 0.2 % 04/24/20 15:44 Neut % (Auto) 80.6 % 04/24/20 15:44 Lymph % (Auto) 10.7 % 04/24/20 15:44 Edwards % (Auto) 7.8 % 04/24/20 15:44 Eos % (Auto) 0.4 % 04/24/20 15:44 Baso % (Auto) 0.3 % 04/24/20 15:44 Reticulocyte % (Auto) 4.8 % (0.5-2.0) H 04/24/20 15:44 Immature Gran # (Auto) 0.02 K/uL (0.00-0.02) 04/24/20 15:44 Neut # (Auto) 8.02 K/uL (1.4-6.5) H 04/24/20 15:44 Lymph # (Auto) 1.07 K/uL (1.2-3.4) L 04/24/20 15:44 Edwards # (Auto) 0.78 K/uL (0.11-0.59) H 04/24/20 15:44 Eos # (Auto) 0.04 K/uL (0-0.5) 04/24/20 15:44 Baso # (Auto) 0.03 K/uL (0-0.2) 04/24/20 15:44 Reticulocyte # 0.13 10^6/uL (0.02-0.10) H 04/24/20 15:44 Absolute Nucleated RBC 0.00 K/uL (0-0) 04/24/20 15:44 Nucleated RBC % (auto) 0.0 % 04/24/20 15:44 ESR 76 mm/hr (0-21) H 04/24/20 15:44 PT 15.2 Seconds (9.0-12.0) H 04/24/20 15:44 INR 1.5 (0.9-1.1) H 04/24/20 15:44 APTT 28.8 Seconds (21.0-31.0) 04/24/20 15:44 PTT Ratio 1.0 04/24/20 15:44 D-Dimer 6300 ug/L FEU (0-500) H* 04/24/20 15:44 Sodium 133 mmol/L (136-145) L 04/24/20 15:44 Potassium 3.3 mmol/L (3.5-5.1) L 04/24/20 15:44 Chloride 97 mmol/L (98-107) L 04/24/20 15:44 Carbon Dioxide 27 mmol/L (21-32) 04/24/20 15:44 Anion Gap 9.0 (3-11) 04/24/20 15:44 BUN 23 mg/dl (7-18) H 04/24/20 15:44 Creatinine 1.18 mg/dl (0.6-1.2) 04/24/20 15:44 Est Cr Clr Drug Dosing 74.6 ml/min 04/24/20 15:44 Est GFR ( Amer) 67.8 04/24/20 15:44 Est GFR (Non-Af Amer) 58.5 04/24/20 15:44 BUN/Creatinine Ratio 19.1 (10-20) 04/24/20 15:44 Glucose 83 mg/dl (70-99) 04/24/20 15:44 Calcium 6.9 mg/dl (8.5-10.1) L 04/24/20 15:44 Ferritin 87.6 ng/ml (8-388) 04/24/20 15:44 Total Bilirubin 2.4 mg/dl (0.2-1) H 04/24/20 15:44 AST 51 U/L (15-37) H 04/24/20 15:44 ALT 14 U/L (12-78) 04/24/20 15:44 Alkaline Phosphatase 158 U/L (45-117) H 04/24/20 15:44 Lactate Dehydrogenase 260 U/L (84-246) H 04/24/20 15:44 Total Creatine Kinase 79 U/L (26-192) 04/24/20 15:44 CK-MB (CK-2) < 1.0 ng/ml (0.5-3.6) 04/24/20 15:44 CK/CKMB % Calc TNP 04/24/20 15:44 Troponin I < 0.015 ng/ml (0-0.045) 04/24/20 15:44 C-Reactive Protein 2.86 mg/dl (0-0.29) H 04/24/20 15:44 NT-Pro-B Natriuret Pep 984 pg/ml (0-450) H 04/24/20 15:44 Total Protein 7.6 gm/dl (6.4-8.2) 04/24/20 15:44 Albumin 2.5 gm/dl (3.4-5.0) L 04/24/20 15:44 Globulin 5.1 gm/dl (2.5-4.0) H 04/24/20 15:44 Albumin/Globulin Ratio 0.5 (0.9-2) L 04/24/20 15:44 Lipase 81 U/L (73-393) 04/24/20 15:44 Urine Color Dark Yellow 04/24/20 15:20 Urine Appearance Cloudy (Clear) A 04/24/20 15:20 Urine pH 5.5 (4.5-7.5) 04/24/20 15:20 Ur Specific [place] 1.016 (1.000-1.030) 04/24/20 15:20 Urine Protein 3+ (Negative) H 04/24/20 15:20 Urine Glucose (UA) Negative (Negative) 04/24/20 15:20 Urine Ketones Trace (Negative) H 04/24/20 15:20 Urine Blood 3+ (Negative) H 04/24/20 15:20 Urine Nitrite Positive (Negative) A 04/24/20 15:20 Urine Bilirubin 2+ (Negative) H 04/24/20 15:20 Urine Urobilinogen Positive (Negative) H 04/24/20 15:20 Ur Leukocyte Esterase 1+ (Negative) H 04/24/20 15:20 Urine WBC (Auto) 10-30 /hpf (0-5) H 04/24/20 15:20 Urine RBC (Auto) >30 /hpf (0-4) H 04/24/20 15:20 U Hyaline Cast (Auto) 5-10 /lpf (0-5) H 04/24/20 15:20 U Epithel Cells (Auto) >30 /lpf (0-5) H 04/24/20 15:20 Urine Bacteria (Auto) Negative (Negative) 04/24/20 15:20 Urine Test Negative (Negative) 04/24/20 15:20 Blood Type A Positive 04/24/20 16:46 Antibody Screen NEGATIVE 04/24/20 16:46 FOBT negative as per ER provider. Diagnostic Findings CT chest abdomen pelvis: 1. There is no evidence of pulmonary embolus in the main, lobar, or proximal segmental pulmonary arteries. 2. Cardiomegaly with evidence of pulmonary artery hypertension and congestive failure. 3. There are diffuse patchy groundglass opacities, likely representing interstitial edema. Correlate clinically for evidence of a superimposed infectious/inflammatory pneumonitis. 4. Moderate right and small left pleural effusions with associated atelectasis. 6. No acute infectious or inflammatory findings are identified in the abdomen or pelvis. 7. Marked hepatomegaly with evidence of severe hepatic steatosis. 8. Mild splenomegaly. 9. Small volume of abdominopelvic ascites. 10. Mildly enlarged mediastinal lymph nodes are nonspecific and may be reactive basis. EKG as per my interpretation:Rate 90, NSR, normal axis, T wave flattening diffuse T wave flattening, inferior infarct
[2020-04-24 20:51] LABS: Allen Test Pos (Pos); Base Excess ABG 1.7 mEq/L (-9-1.8); HCO3 ABG 26 mmol/L (19-24); Oxygen Saturation ABG 94.1 % (90-95); PCO2 ABG 37 mmHg (35-46); PO2 ABG 73 mmHg (80-95); pH ABG 7.46 (7.35-7.45)
[2020-04-24] MEDS ORDERED: IPRATROPIUM BROMIDE NEB SOLN 0.02% 2.5 ML VIAL INH PRN (21:11)
[2020-04-24] MEDS ORDERED: XOPENEX/ATROVENT 1.25mg/0.5MG NEB COMBO NEB PRN (21:11)
[2020-04-24] MEDS ORDERED: LEVALBUTEROL 1.25MG/0.5ML NEB INH PRN (21:11)
[2020-04-24] MEDS ORDERED: PROMETHAZINE HCL 12.5 MG in SODIUM CHLORIDE 0.9% 50 ML IV PRN (21:11)
[2020-04-24] MEDS ORDERED: NITROGLYCERIN SL 0.4 MG/TAB TAB SL PRN (21:11)
[2020-04-24 21:41] LABS: Reticulocyte % 4.3 % (0.5-2.0); Reticulocytes # 0.13 10^6/uL (0.02-0.10)
[2020-04-24] MEDS ORDERED: PNEUMOCOCCAL POLYSACCHARIDES 25 MCG/0.5 ML VIAL/SYR IM ONE (21:42)
[2020-04-24] MEDS ORDERED: PNEUMOCOCCAL ADMINISTRATION CHARGE ONE (21:42)
[2020-04-24] MEDS: NICOTINE 21 MG/24 HR TDSY TD SCH (22:22)
[2020-04-24] MEDS: BUPRENORPHINE/NALOXONE 8/2 MG TAB SL SCH (22:23)
[2020-04-24] MEDS: MAGNESIUM SULFATE / D5W 1 GM/100 ML BAG IV SCH (23:26)
[2020-04-25] MEDS ORDERED: LORazepam 0.5 MG TAB PO STA (00:15)
[2020-04-25] MEDS: MAGNESIUM SULFATE / D5W 1 GM/100 ML BAG IV SCH ×2 (01:06→02:58)
[2020-04-25 07:48] LABS: Hematocrit (blood only) 27.3 % (37-47); Hemoglobin 8.8 g/dL (12.0-16.0); Immature Granulocytes # (auto) 0.02 K/uL (0.00-0.02); Immature Granulocytes % (auto) 0.2 %; Lymphocytes # (auto) 0.58 K/uL (1.2-3.4); Lymphocytes % (auto) 5.1 %; Mean Corpuscular Hemoglobin 32.4 pg (25-34); Mean Corpuscular Hgb Conc 32.2 g/dL (32-36); Mean Corpuscular Volume 100.4 fL (80-100); Mean Platelet Volume 10.1 fL (7.4-10.4); Monocytes # (auto) 0.39 K/uL (0.11-0.59); Monocytes % (auto) 3.5 %; Neutrophils # (auto) 10.29 K/uL (1.4-6.5); Neutrophils % (auto) 91.2 %; Platelet Count 364 K/uL (130-400); RDW Coefficient of Variation 19.3 % (11.5-14.5); RDW Standard Deviation 68.4 fL (36.4-46.3); Red Blood Count 2.72 M/uL (4.2-5.4); White Blood Count 11.28 K/uL (4.8-10.8)
[2020-04-25] MEDS: ALBUMIN 25% 50 ML with FUROSEMIDE 40 MG IV SCH ×2 (08:14→21:38)
[2020-04-25] MEDS: NICOTINE 21 MG/24 HR TDSY TD SCH (08:18)
[2020-04-25] MEDS: ENOXAPARIN INJ 40 MG/0.4 ML SYR SQ SCH (08:18)
[2020-04-25] MEDS: POTASSIUM CHLORIDE 20 MEQ TABCR PO SCH ×2 (08:18→21:36)
[2020-04-25] MEDS: ASPIRIN 81 MG ECTAB PO SCH (08:18)
[2020-04-25] MEDS: BUPRENORPHINE/NALOXONE 8/2 MG TAB SL SCH ×3 (08:22→21:35)
[2020-04-25 08:25] LABS: BUN Creatinine Ratio 23.8 (10-20); Calcium 7.6 mg/dl (8.5-10.1); Creatinine Clr Calc Pharmacy 86.6 ml/min; Est GFR (African American) 81.8; Est GFR (Non-African American) 70.6; Magnesium 2.1 mg/dl (1.8-2.4); Potassium 4.3 mmol/L (3.5-5.1)
[2020-04-25 08:28] LABS: Folate (Folic Acid) 1.19 ng/ml (>5.38)
[2020-04-25 08:35] LABS: Thyroid Stimulating Hormone 0.858 uIu/ml (0.300-4.500)
--- NOTE | 2020-04-25 10:36 | Electrocardiogram Report ---
Test Reason : Blood Pressure : / mmHG Vent. Rate : 092 BPM Atrial Rate : 092 BPM P-R Int : 160 ms QRS Dur : 078 ms QT Int : 406 ms P-R-T Axes : 068 058 050 degrees QTc Int : 502 ms Normal sinus rhythm Low voltage QRS Nonspecific ST and T wave abnormality Abnormal ECG No previous ECGs available Confirmed by Neo Pollock ([id number]) on 04/25/2020 10:36:19 AM Referred By: REFERRED SELF Confirmed By:Neo Pollock
--- NOTE | 2020-04-25 11:13 | Electrocardiogram Report ---
Test Reason : Blood Pressure : / mmHG Vent. Rate : 084 BPM Atrial Rate : 084 BPM P-R Int : 170 ms QRS Dur : 078 ms QT Int : 422 ms P-R-T Axes : 065 054 049 degrees QTc Int : 498 ms Normal sinus rhythm Prolonged QT Abnormal ECG When compared with ECG of 24-APR-2020 14:26, (unconfirmed) No significant change was found Confirmed by Neo Pollock ([id number]) on 04/25/2020 11:13:37 AM Referred By: REFERRED SELF Confirmed By:Neo Pollock
--- NOTE | 2020-04-25 11:37 | Cardiology Consultation ---
Date of Consultation April 25, 2020 Assessment & Plan (1) Acute hypoxemic respiratory failure: (2) Pneumonitis: (3) Anemia: (4) Folate deficiency: (5) Iron deficiency: This patient's age, presentation and history of cigarette smoking leave me away from the diagnosis of congestive heart failure. Her echocardiogram was completed this morning and I will review it but I think it may be reasonable to have the classification counselor see her for an opinion. Her anemia should be worked up prior to discharge not only for completeness but she may not comply with outpatient follow-up. History of Present Illness Attending Physician: Zulema Contreras, History of Present Illness This is a 40-year-old female whose health care has been fragmented at best. She relates a history of chronic anemia. She also has a history of cigarette smoking. States for past several months she is felt short of breath. No hemoptysis. A chronic cough. At some point she was given an albuterol inhaler which she started to use recently. She became more short of breath and decided to present to the emergency department. She has no ongoing relationship with a primary care physician. After admission her cardiac markers initially have been negative. EKG shows no acute changes. Portable chest x-ray appears to be underpenetrated. CT of the chest was negative for pulmonary emboli but it does note cardiomegaly and bilateral pulmonary edema suggesting congestive heart failure. Patient had an echocardiogram this morning which has not been reviewed. She currently feels better and has no complaints. Her hemoglobin on admission was 8.8 and she has a low serum iron and folate level. The patient should be screened for COVID-19. Allergies Allergy/AdvReac Type Severity Reaction Status Date / Time mushroom Allergy Severe ANAPHYLAXIS Verified 04/24/20 15:29 onion Allergy Severe ANAPHYLAXIS Verified 04/24/20 15:29 tramadol Allergy Mild RASH AND Verified 04/24/20 15:29 ITCHING ketorolac Allergy Unknown RASH Verified 04/24/20 15:29 green peppers Allergy Severe ANAPHYLAXIS Uncoded 04/24/20 15:29 Plasencia Pepper Allergy Unknown ANAPHYLAXIS Uncoded 04/24/20 15:29 FROM GREEN PEPPER Home Medications Home Medications Medication Instructions Recorded Confirmed Type albuterol sulfate 2 puff INHALATION Q4 PRN 04/24/20 04/24/20 History buprenorphine-naloxone 1.5 tab SUBLINGUAL UD 04/24/20 04/24/20 History Patient History Medical History (Updated 04/26/20 @ 05:55 by Zulema Contreras DO) Hepatomegaly Pleural effusion on left Pleural effusion on right Pulmonary edema Transaminitis Social History Preferred Language: Dutch Communication Ability: Effective Gullet Slitter Required: No Beliefs That Will Affect Care: None Current Living Situation: Spouse and Family Other Information That Helps Us Care for You: No Feels Safe at Home: Yes Safety Concerns: Feels Safe At This Time Smoking Status: Current every day smoker Tobacco Type: cigarettes ; Cigarettes Per Day: 10 ; Tobacco Cessation Education Requested by Patient: No Hx Alcohol Use: Yes Alcohol type: hard liquor Hx Substance Use: No Review of Systems Review of Systems: All systems reviewed & are unremarkable except as noted in HPI & below Nothing additional to add. Physical Exam Physical Exam: General: no acute distress and stated age Head: normocephalic, no masses, lesions, tenderness or abnormalities Eyes: conjunctiva are pink and non-injected, sclera clear Neck: supple, no adenopathy, no bruits, normal jugular venous pulse, no hepatojugular reflux Chest: normal shape and normal respiratory effort Lungs: clear to auscultation and percussion Cardiac Exam: - regular rate & rhythm, no murmurs gallops or rubs - normal S1, normal S2 Pulses: 2(+) throughout Abdomen: abdomen soft, non-tender, no abnormal masses and no hepatosplenomegaly Musculoskeletal: no gait disturbance, no joint inflammation, no deforming arthritis Extremities: no edema and no cyanosis Neuro: grossly normal exam Results & Data ([facility]) Vital Signs (Past 12 Hours) Vital Signs Temp Pulse Resp BP BP Pulse Ox Pulse Ox 04/25/20 07:27 37.3 C 91 H 22 104/69 91 04/25/20 03:31 36.7 C 85 20 100/62 91 04/25/20 00:00 92 04/24/20 23:38 36.9 C 88 20 103/66 91 Laboratory Results Laboratory Results - last 24 hr 04/24/20 04/24/20 04/24/20 15:20 15:20 15:44 WBC 9.96 RBC 2.67 L Hgb 8.7 L Hct 26.9 L MCV 100.7 H MCH 32.6 MCHC 32.3 RDW Std Deviation 69.5 H RDW Coeff of Christine 19.2 H Plt Count 304 MPV 10.2 Immature Gran % (Auto) 0.2 Neut % (Auto) 80.6 Lymph % (Auto) 10.7 [place] % (Auto) 7.8 Eos % (Auto) 0.4 Baso % (Auto) 0.3 Reticulocyte % (Auto) 4.8 H Immature Gran # (Auto) 0.02 Neut # (Auto) 8.02 H Lymph # (Auto) 1.07 L [place] # (Auto) 0.78 H Eos # (Auto) 0.04 Baso # (Auto) 0.03 Reticulocyte # 0.13 H Absolute Nucleated RBC 0.00 Nucleated RBC % (auto) 0.0 ESR PT INR APTT PTT Ratio D-Dimer ABG pH ABG pCO2 ABG pO2 ABG HCO3 ABG O2 Saturation ABG Base Excess Trell Test Barometric Pressure Oxygen Given Sodium Potassium Chloride Carbon Dioxide Anion Gap BUN Creatinine Est Cr Clr Drug Dosing Est GFR ( Amer) Est GFR (Non-Af Amer) BUN/Creatinine Ratio Glucose Calcium Magnesium Iron TIBC Transferrin Ferritin Total Bilirubin AST ALT Alkaline Phosphatase Lactate Dehydrogenase Total Creatine Kinase CK-MB (CK-2) CK/CKMB % Calc Troponin I C-Reactive Protein NT-Pro-B Natriuret Pep Total Protein Albumin Globulin Albumin/Globulin Ratio Lipase Vitamin B12 Folate TSH Urine Color Dark Yellow Urine Appearance Cloudy A Urine pH 5.5 Ur Specific [place] 1.016 Urine Protein 3+ H Urine Glucose (UA) Negative Urine Ketones Trace H Urine Blood 3+ H Urine Nitrite Positive A Urine Bilirubin 2+ H Urine Urobilinogen Positive H Ur Leukocyte Esterase 1+ H Urine WBC (Auto) 10-30 H Urine RBC (Auto) >30 H U Hyaline Cast (Auto) 5-10 H U Epithel Cells (Auto) >30 H Urine Bacteria (Auto) Negative Urine Test Negative Blood Type Antibody Screen 04/24/20 04/24/20 04/24/20 15:44 15:44 15:44 WBC RBC Hgb Hct MCV MCH MCHC RDW Std Deviation RDW Coeff of Christine Plt Count MPV Immature Gran % (Auto) Neut % (Auto) Lymph % (Auto) [place] % (Auto) Eos % (Auto) Baso % (Auto) Reticulocyte % (Auto) Immature Gran # (Auto) Neut # (Auto) Lymph # (Auto) [place] # (Auto) Eos # (Auto) Baso # (Auto) Reticulocyte # Absolute Nucleated RBC Nucleated RBC % (auto) ESR 76 H PT 15.2 H INR 1.5 H APTT 28.8 PTT Ratio 1.0 D-Dimer 6300 H* ABG pH ABG pCO2 ABG pO2 ABG HCO3 ABG O2 Saturation ABG Base Excess Trell Test Barometric Pressure Oxygen Given Sodium 133 L Potassium 3.3 L Chloride 97 L Carbon Dioxide 27 Anion Gap 9.0 BUN 23 H Creatinine 1.18 Est Cr Clr Drug Dosing 74.6 Est GFR ( Amer) 67.8 Est GFR (Non-Af Amer) 58.5 BUN/Creatinine Ratio 19.1 Glucose 83 Calcium 6.9 L Magnesium Iron TIBC Transferrin Ferritin 87.6 Total Bilirubin 2.4 H AST 51 H ALT 14 Alkaline Phosphatase 158 H Lactate Dehydrogenase Total Creatine Kinase 79 CK-MB (CK-2) < 1.0 CK/CKMB % Calc TNP Troponin I < 0.015 C-Reactive Protein 2.86 H NT-Pro-B Natriuret Pep 984 H Total Protein 7.6 Albumin 2.5 L Globulin 5.1 H Albumin/Globulin Ratio 0.5 L Lipase 81 Vitamin B12 Folate TSH Urine Color Urine Appearance Urine pH Ur Specific [place] Urine Protein Urine Glucose (UA) Urine Ketones Urine Blood Urine Nitrite Urine Bilirubin Urine Urobilinogen Ur Leukocyte Esterase Urine WBC (Auto) Urine RBC (Auto) U Hyaline Cast (Auto) U Epithel Cells (Auto) Urine Bacteria (Auto) Urine Test Blood Type Antibody Screen 04/24/20 04/24/20 04/24/20 15:44 16:46 20:30 WBC RBC Hgb Hct MCV MCH MCHC RDW Std Deviation RDW Coeff of Christine Plt Count MPV Immature Gran % (Auto) Neut % (Auto) Lymph % (Auto) [place] % (Auto) Eos % (Auto) Baso % (Auto) Reticulocyte % (Auto) Immature Gran # (Auto) Neut # (Auto) Lymph # (Auto) [place] # (Auto) Eos # (Auto) Baso # (Auto) Reticulocyte # Absolute Nucleated RBC Nucleated RBC % (auto) ESR PT INR APTT PTT Ratio D-Dimer ABG pH 7.46 H ABG pCO2 37 ABG pO2 73 L ABG HCO3 26 H ABG O2 Saturation 94.1 ABG Base Excess 1.7 Trell Test Pos Barometric Pressure 731.0 Oxygen Given 3L Sodium Potassium Chloride Carbon Dioxide Anion Gap BUN Creatinine Est Cr Clr Drug Dosing Est GFR ( Amer) Est GFR (Non-Af Amer) BUN/Creatinine Ratio Glucose Calcium Magnesium Iron TIBC Transferrin Ferritin Total Bilirubin AST ALT Alkaline Phosphatase Lactate Dehydrogenase 260 H Total Creatine Kinase CK-MB (CK-2) CK/CKMB % Calc Troponin I C-Reactive Protein NT-Pro-B Natriuret Pep Total Protein Albumin Globulin Albumin/Globulin Ratio Lipase Vitamin B12 Folate TSH Urine Color Urine Appearance Urine pH Ur Specific [place] Urine Protein Urine Glucose (UA) Urine Ketones Urine Blood Urine Nitrite Urine Bilirubin Urine Urobilinogen Ur Leukocyte Esterase Urine WBC (Auto) Urine RBC (Auto) U Hyaline Cast (Auto) U Epithel Cells (Auto) Urine Bacteria (Auto) Urine Test Blood Type A Positive Antibody Screen NEGATIVE 04/24/20 04/24/20 04/25/20 21:26 21:26 07:30 WBC RBC Hgb Hct MCV MCH MCHC RDW Std Deviation RDW Coeff of Christine Plt Count MPV Immature Gran % (Auto) Neut % (Auto) Lymph % (Auto) [place] % (Auto) Eos % (Auto) Baso % (Auto) Reticulocyte % (Auto) 4.3 H Immature Gran # (Auto) Neut # (Auto) Lymph # (Auto) [place] # (Auto) Eos # (Auto) Baso # (Auto) Reticulocyte # 0.13 H Absolute Nucleated RBC Nucleated RBC % (auto) ESR PT INR APTT PTT Ratio D-Dimer ABG pH ABG pCO2 ABG pO2 ABG HCO3 ABG O2 Saturation ABG Base Excess Trell Test Barometric Pressure Oxygen Given Sodium 133 L Potassium 4.3 D Chloride 99 Carbon Dioxide 26 Anion Gap 8.0 BUN 24 H Creatinine 1.01 Est Cr Clr Drug Dosing 86.6 Est GFR ( Amer) 81.8 Est GFR (Non-Af Amer) 70.6 BUN/Creatinine Ratio 23.8 H Glucose 129 H Calcium 7.6 L Magnesium 1.3 L 2.1 Iron 16 L TIBC 334 Transferrin 267 Ferritin Total Bilirubin AST ALT Alkaline Phosphatase Lactate Dehydrogenase Total Creatine Kinase CK-MB (CK-2) CK/CKMB % Calc Troponin I C-Reactive Protein NT-Pro-B Natriuret Pep Total Protein Albumin Globulin Albumin/Globulin Ratio Lipase Vitamin B12 Folate TSH 0.858 Urine Color Urine Appearance Urine pH Ur Specific [place] Urine Protein Urine Glucose (UA) Urine Ketones Urine Blood Urine Nitrite Urine Bilirubin Urine Urobilinogen Ur Leukocyte Esterase Urine WBC (Auto) Urine RBC (Auto) U Hyaline Cast (Auto) U Epithel Cells (Auto) Urine Bacteria (Auto) Urine Test Blood Type Antibody Screen 04/25/20 04/25/20 07:30 07:30 WBC 11.28 H RBC 2.72 L Hgb 8.8 L Hct 27.3 L MCV 100.4 H MCH 32.4 MCHC 32.2 RDW Std Deviation 68.4 H RDW Coeff of Christine 19.3 H Plt Count 364 MPV 10.1 Immature Gran % (Auto) 0.2 Neut % (Auto) 91.2 Lymph % (Auto) 5.1 [place] % (Auto) 3.5 Eos % (Auto) 0.0 Baso % (Auto) 0.0 Reticulocyte % (Auto) Immature Gran # (Auto) 0.02 Neut # (Auto) 10.29 H Lymph # (Auto) 0.58 L [place] # (Auto) 0.39 Eos # (Auto) 0.00 Baso # (Auto) 0.00 Reticulocyte # Absolute Nucleated RBC Nucleated RBC % (auto) ESR PT INR APTT PTT Ratio D-Dimer ABG pH ABG pCO2 ABG pO2 ABG HCO3 ABG O2 Saturation ABG Base Excess Trell Test Barometric Pressure Oxygen Given Sodium Potassium Chloride Carbon Dioxide Anion Gap BUN Creatinine Est Cr Clr Drug Dosing Est GFR ( Amer) Est GFR (Non-Af Amer) BUN/Creatinine Ratio Glucose Calcium Magnesium Iron TIBC Transferrin Ferritin Total Bilirubin AST ALT Alkaline Phosphatase Lactate Dehydrogenase Total Creatine Kinase CK-MB (CK-2) CK/CKMB % Calc Troponin I C-Reactive Protein NT-Pro-B Natriuret Pep Total Protein Albumin Globulin Albumin/Globulin Ratio Lipase Vitamin B12 818 Folate 1.19 L TSH Urine Color Urine Appearance Urine pH Ur Specific [place] Urine Protein Urine Glucose (UA) Urine Ketones Urine Blood Urine Nitrite Urine Bilirubin Urine Urobilinogen Ur Leukocyte Esterase Urine WBC (Auto) Urine RBC (Auto) U Hyaline Cast (Auto) U Epithel Cells (Auto) Urine Bacteria (Auto) Urine Test Blood Type Antibody Screen Medications Administered Current Inpatient Medications Acetaminophen (Tylenol) 325 mg PO Q6H PRN PRN Reason: Mild Pain Stop: 05/24/20 21:10 Aspirin (Ecotrin Ectab) 81 mg PO QAM [facility] Stop: 05/25/20 08:59 Last Admin: 04/25/20 08:18 Dose: 81 mg Documented by: Buprenorphine/Naloxone (Suboxone 8 Mg/2 Mg) 0.5 tab SL TID [facility] Stop: 05/24/20 21:59 Last Admin: 04/25/20 08:22 Dose: 0.5 tab Documented by: Enoxaparin Sodium (Lovenox) 40 mg SQ QAM [facility] Stop: 05/25/20 08:59 Last Admin: 04/25/20 08:18 Dose: 40 mg Documented by: Lorazepam (Ativan) 0.25 mg in 0.5 mls @ 0.5 mls/min IV Q4H PRN PRN Reason: Anxiety Stop: 05/24/20 21:10 Furosemide 40 mg/ Albumin (Human) 54 mls @ 54 mls/hr IV BID [facility] Stop: 04/25/20 21:59 Last Infusion: 04/25/20 10:55 Dose: Infused Documented by: Promethazine HCl 12.5 mg/ (Sodium Chloride) 50.5 mls @ 202 mls/hr IV Q6H PRN PRN Reason: Nausea And Vomiting Stop: 05/24/20 21:10 Ipratropium Mona (Atrovent 0.02% 0.5mg/2.5ml) 0.5 mg INH Q4H PRN PRN Reason: Shortness Of Breath Or Wheezing Stop: 05/24/20 21:10 Levalbuterol HCl (Xopenex 1.25mg/0.5ml Neb) 1.25 mg INH Q4H PRN PRN Reason: Shortness Of Breath Or Wheezing Stop: 05/24/20 21:10 Metoprolol Tartrate (Lopressor) 12.5 mg PO BID [facility] Stop: 05/25/20 08:59 Miscellaneous (Remove Nicoderm Patch) 1 ea N/A DAILY@0859 [facility] Stop: 05/25/20 08:58 Last Admin: 04/25/20 08:27 Dose: 1 ea Documented by: Nicotine (Nicoderm Cq) 21 mg TD [facility] Stop: 05/24/20 21:10 Last Admin: 04/25/20 08:18 Dose: 21 mg Documented by: Nitroglycerin (Nitrostat) 0.4 mg SL UD PRN PRN Reason: Chest Pain Stop: 05/24/20 21:10 Potassium Chloride (Klor-Con M20) 20 meq PO BID [facility] Stop: 05/25/20 08:59 Last Admin: 04/25/20 08:18 Dose: 20 meq Documented by:
--- NOTE | 2020-04-25 13:13 | Pulmonary Consultation ---
Date of Consultation April 25, 2020 Assessment & Plan (1) Acute hypoxemic respiratory failure: 40-year-old female with a past medical history of mood disorder, obesity, PCOS and continuous opiate dependence presented to the hospital with acute hypoxemic respiratory failure and significant dyspnea. The symptoms to me seem to be concerning for acute deccompensated heart failure given her orthopnea, elevated proBNP, CT chest findings and response to diuretic therapy. Pulmonary arterial hypertension versus secondary pulmonary hypertension may also be present. A lot of this will depend on what we see on the echo findings. I am not certain that the ins and outs are accurately re flecting which she is putting out in terms of urine. Echo report is pending. I did discuss the case with Dr. Powers. Would recommend continued diuresis and a follow-up chest x-ray tomorrow morning. If he has continued pleural effusions on chest x-ray, we will perform a thoracentesis if the patient is willing to have this procedure performed. She did emphatically states to me numerous times that she wants to go home. I am concerned that the patient might leave AGAINST MEDICAL ADVICE. Given the patient's findings, I did also recommend performing a COVID-19 test. This does seem less likely though given the lack of fevers and cough. She also has a transaminitis and evidence of hepatomegaly on the CT of her abdomen with small ascites. I would recommend a work-up of her transaminitis and possibly a cirrhosis work-up. She does have a mild coagulopathy with an INR 1.5. (I am questioning the possibility of congestive hepatopathy versus hepatopulmonary syndrome or portal pulmonary hypertension). Platelet count appears to be intact. Urine drug screen may be advisable as well. Depending upon her work-up thus far, an atypical infectious work up versus autoimmune/inflammatory work up may need to be pursued as well. Pulmonary will continue to follow. Thank you for this interesting consult. (2) Pulmonary edema: (3) Iron deficiency: (4) Anemia: (5) Hepatomegaly: (6) Transaminitis: (7) Pleural effusion on left: (8) Pleural effusion on right: History of Present Illness Reason for Consultation: Pleural effusion and hypoxemia Requesting Physician: Dr. Richard Powers Attending Physician: Zulema Contreras, DO History of Present Illness 40-year-old female with a past medical history of obesity, PCOS, iron deficiency and anxiety who presents to the hospital due to worsening shortness of breath. Patient notes that for the last month and a half she has had some trouble with her breathing. Roughly 4 to 6 weeks ago she had pain in her left b reast upon deep breathing and also began noticing significant orthopnea. She is at the point where she has to sleep upright in a chair. Chest pain did start to improve over the last few weeks, however, yesterday she used her family members pulse oximeter and noticed that her oxygen saturation was 73%. She also noticed that yesterday her breathing is becoming worse. She has very significant carla rtness of breath with minimal exertion. She noticed mild leg swelling. She also notices pain in her thigh and abdomen upon touch. She is very anxious today and wanting to go home. Pulmonary is consulted for evidence of pleural effusion. She underwent a CT scan of her chest/abdomen/pelvis on 04/24/2020 which demonstrated no significant pulmonary embolism, cardiomegaly with evidence of pulmonary artery hypertension, diffuse patchy groundglass opacities, moderate right and small left pleural effusion with compressive atelectasis, marked hepatomegaly with evidence of severe hepatic steatosis, mild splenomegaly, small volume abdominal pelvic ascites and mildly enlarged mediastinal lymph nodes. Patient denies any history of fever. Minimal cough. No current chest pain. No night sweats. Weight has been relatively stable. Blood gas performed yesterday demonstrated respiratory alkalosis with hypoxemia. Hemoglobin is low at 8.8. Iron content is low. Sodium is 133. Calcium 7.6. proBNP elevated 984. LFTs were elevated with a total bilirubin of 2.4, AST of 51 and alkaline phosphatase 158. Albumin low at 2.5. LDH is elevated mildly at 260. Procalcitonin was not drawn. Urine cultures are pending. Urinalysis demonstrated positive leukoesterase, positive nitrates, blood and WBCs. Creatinine appeared normal at 1.01. BUN 24. TSH within normal limits. COVID-19 testing pending. Echocardiogram pending. She has been getting diuresed with 40 mg IV Lasix twice daily. She is -99 mL. 750 mL of urine output since hospital admission was recorded. Lives in a house with her fianc and 2 children ages 3 and 5. She is a and served in [place] and [place]. 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 She smokes half a pack a day since her teenage years. She is down to smoking 1 to 2 cigarettes a day lately due to shortness of breath. She has 1 dog at home, pug. No other animals. No open water sources. No recent sick contacts. Denies any history of spontaneous abortions. Her mother does have systemic lupus and has "stage III kidney disease". She does not know much history of her father. Allergies Allergy/AdvReac Type Severity Reaction Status Date / Time mushroom Allergy Severe ANAPHYLAXIS Verified 04/24/20 15:29 onion Allergy Severe ANAPHYLAXIS Verified 04/24/20 15:29 tramadol Allergy Mild RASH AND Verified 04/24/20 15:29 ITCHING ketorolac Allergy Unknown RASH Verified 04/24/20 15:29 green peppers Allergy Severe ANAPHYLAXIS Uncoded 04/24/20 15:29 Plasencia Pepper Allergy Unknown ANAPHYLAXIS Uncoded 04/24/20 15:29 FROM GREEN PEPPER Home Medications Home Medications Medication Instructions Recorded Confirmed Type albuterol sulfate 2 puff INHALATION Q4 PRN 04/24/20 04/24/20 History buprenorphine-naloxone 1.5 tab SUBLINGUAL UD 04/24/20 04/24/20 History Patient History Social History Preferred Language: Malaysian Communication Ability: Effective Engraver Ornamental Design Required: No Beliefs That Will Affect Care: None Current Living Situation: Spouse and Family Other Information That Helps Us Care for You: No Feels Safe at Home: Yes Safety Concerns: Feels Safe At This Time Smoking Status: Current every day smoker Tobacco Type: cigarettes ; Cigarettes Per Day: 10 ; Tobacco Cessation Education Requested by Patient: No Hx Alcohol Use: Yes Alcohol type: hard liquor Hx Substance Use: No Physical Exam Constitutional: Very anxious appearing. Crying at times. Does not appear to be in any significant physical distress Eyes: PERRL, conjunctivae normal, anicteric sclerae ENMT: external ear and nose normal, oropharynx normal Mallampati Class: III Poor dentition. Neck: normal visual inspection Respiratory: Mild crackles bilaterally. Diminished at the bases. Cardiovascular: 1+ pitting edema in the lower extremities. Regular rate and rhythm. No obvious murmur. Gastrointestinal (Abdomen): normal bowel sounds, soft, nontender, no hepatosplenomegaly Musculoskeletal: no cyanosis or clubbing, extremities motor strength 5/5 Skin: no rashes, warm and dry Neurologic: PERRL, EOMI, accommodation nl, no face palsy, no dysarthria Psychiatric: Affect: + labile affect Results & Data Results & Data ([facility]) Vital Signs (Past 12 Hours) Vital Signs Temp Pulse Pulse Resp BP BP Pulse Ox 04/25/20 11:57 98.2 F 96 H 20 99/61 L 96 04/25/20 08:00 84 04/25/20 07:27 99.1 F 91 H 22 104/69 91 04/25/20 03:31 98.1 F 85 20 100/62 91 I personally reviewed her labs, chest imaging and previous notes. PG Care Time/CCT Total # of Minutes Spent Total Time Spent with Patient: Total time spent is greater than 50% in coordination of care (as documented) at patient's floor/unit and/or counseling patient: Coding Level of Care Code 31218 Inpt Consult Level 5 Diagnoses Acute hypoxemic respiratory failure J96.01 Pulmonary edema J81.1 Iron deficiency E61.1 Anemia D64.9 Hepatomegaly R16.0 Transaminitis R74.0 Pleural effusion on left J90 Pleural effusion on right J90
[2020-04-25] MEDS: METOPROLOL TARTRATE 25 MG TAB PO SCH ×2 (14:54→21:37)
--- NOTE | 2020-04-25 20:39 | Hospitalist Progress Note ---
Date of Service April 25, 2020 Assessment & Plan (1) Acute hypoxemic respiratory failure: Six to eight weeks of worsening SOB, weight gain and progressive dyspnea on exertion with development of pleural effusions. CT angio of the chest reveals some interstitial edema which may be suggestive of a pneumonitis. Infection considered, however, patient has not been febrile or coughing and with the length of time this has been going on, acute infection is thought less likely. COVID test is negative. Also in support of this is a negative procalcitonin. Agree with holding further antibiotics at this time. Differential includes but not limited to congestive heart failure, vasculitis such as granulomatosis with polyangiitis (lung involvement and proteinuria) or other collagen vascular disorder such as lupus (no joint involvement but biological mother had SLE), hepatic disease such as developing cirrhosis (min amount of abdominopelvic ascites with reported abdominal enlargement over 6 weeks, low alb, elevated INR to 1.5, elevated TB to 2.5), hepatopulmonary syndrome, malignancy. Will check a hepatitis panel, autoimmune panel, cont Lasix therapy for relief of symptoms, quantify proteinuria, check UDS. Will consult Gastroenterology to assist with elucidation of liver involvement. It may be very helpful to obtain pleural fluid diagnostics tomorrow to see if this is transudative or exudative or if malignant cells are present. (2) Folate deficiency: may be related to poor nutrition vs worsening anemia. Replacement started. (3) Iron deficiency anemia: Normal for menstruating female. No overt blood loss noted by patient. Start iron supplementation. (4) Pleural effusion on right: Likely contributing to her shortness of breath. Cont diuretic therapy and pulm to consider a thoracentesis. (5) Hepatic steatosis: noted on CT imaging. (6) Dental caries: extensive (7) Morbid obesity: (8) PCOS (polycystic ovarian syndrome): not on treatment with metformin (9) Chronic pain: Uses suboxone regularly. (10) Smoker: Nicotine patch. Strongly advised to quit. (11) DVT prophylaxis: Lovenox Full Code Dispo-uncertain, pending workup. Zulema Contreras DO [facility] Hospitalist Admission and Anticipated Discharge Date Admission Date: April 24, 2020 Subjective 40 yo female smoker with PCOS who presents with 6 weeks of SOB including periodic chest discomfort and increasing dyspnea on exertion prompting presentation. She reports seeing 73% oxygenation on a pulse on meter at her home. She has minimal intermittent cough that is nonproductive. She reports feeling much better today after treatment yesteday, however, is still requiring oxygen supplementation. She denies fevers or chills. She reports her biological mother having lupus. She denies any joint pain or swellings. She denies any skin changes, bowel upset. She reports 30 lb weight gain over the past couple of months, also. Review of Systems Review of Systems: All systems reviewed & are unremarkable except as noted in Subjective Physical Exam Physical Exam: CONSTITUTIONAL: obese, vitals as above, generally well- appearing EYES: pupils equal , round and reactive. normal conjunctivae, no scleral icterus ENT: external ear and nose normal, oropharynx clear, MMM RESPIRATORY: clear to auscultation bilaterally, no crackles, rales or wheezes, normal respiratory effort CARDIOVASCULAR: regular rate and rhythm, S1 and 2 heard without murmurs, gallops or rubs, no JVD, no peripheral edema GASTROINTESTINAL: soft, nontender, nondistended, no guarding. MUSCULOSKELETAL: strength 5/5 throughout, head is normocephalic and atraumatic, neck supple, normal palpation of chest wall without tenderness SKIN: warm and dry NEUROLOGIC: No facial palsy, no dysarthria. CN 2-12 grossly intact, no sensory deficit, normal cognition, normal speech, no tremor. No gross focal deficits. PSYCHIATRIC: alert cooperative and oriented to person, place and time. Results & Data Results & Data ([facility]) Vital Signs (Past 12 Hours) Vital Signs Temp Pulse Resp BP Pulse Ox 04/25/20 19:30 36.6 C 90 19 109/74 90 04/25/20 15:50 36.3 C L 87 22 100/65 91 04/25/20 11:57 36.8 C 96 H 20 99/61 L 96 Laboratory Results Short CBC 04/25/20 Range/Units 07:30 WBC 11.28 H (4.8-10.8) K/uL Hgb 8.8 L (12.0-16.0) g/dL Hct 27.3 L (37-47) % Plt Count 364 (130-400) K/uL BMP 04/25/20 07:30 Sodium 133 L Potassium 4.3 D Chloride 99 Carbon Dioxide 26 BUN 24 H Creatinine 1.01 Glucose 129 H Calcium 7.6 L Medications Administered Current Inpatient Medications Acetaminophen (Tylenol) 325 mg PO Q6H PRN PRN Reason: Mild Pain Stop: 05/24/20 21:10 Aspirin (Ecotrin Ectab) 81 mg PO QAM [facility] Stop: 05/25/20 08:59 Last Admin: 04/25/20 08:18 Dose: 81 mg Documented by: Buprenorphine/Naloxone (Suboxone 8 Mg/2 Mg) 0.5 tab SL TID [facility] Stop: 05/24/20 21:59 Last Admin: 04/25/20 14:55 Dose: 0.5 tab Documented by: Enoxaparin Sodium (Lovenox) 40 mg SQ QAM [facility] Stop: 05/25/20 08:59 Last Admin: 04/25/20 08:18 Dose: 40 mg Documented by: Lorazepam (Ativan) 0.25 mg in 0.5 mls @ 0.5 mls/min IV Q4H PRN PRN Reason: Anxiety Stop: 05/24/20 21:10 Furosemide 40 mg/ Albumin (Human) 54 mls @ 54 mls/hr IV BID [facility] Stop: 04/25/20 21:59 Last Infusion: 04/25/20 10:55 Dose: Infused Documented by: Promethazine HCl 12.5 mg/ (Sodium Chloride) 50.5 mls @ 202 mls/hr IV Q6H PRN PRN Reason: Nausea And Vomiting Stop: 05/24/20 21:10 Ipratropium [place] (Atrovent 0.02% 0.5mg/2.5ml) 0.5 mg INH Q4H PRN PRN Reason: Shortness Of Breath Or Wheezing Stop: 05/24/20 21:10 Levalbuterol HCl (Xopenex 1.25mg/0.5ml Neb) 1.25 mg INH Q4H PRN PRN Reason: Shortness Of Breath Or Wheezing Stop: 05/24/20 21:10 Metoprolol Tartrate (Lopressor) 12.5 mg PO BID [facility] Stop: 05/25/20 08:59 Last Admin: 04/25/20 14:54 Dose: Not Given Documented by: Miscellaneous (Remove Nicoderm Patch) 1 ea N/A DAILY@0859 [facility] Stop: 05/25/20 08:58 Last Admin: 04/25/20 08:27 Dose: 1 ea Documented by: Nicotine (Nicoderm Cq) 21 mg TD QAM [facility] Stop: 05/24/20 21:10 Last Admin: 04/25/20 08:18 Dose: 21 mg Documented by: Nitroglycerin (Nitrostat) 0.4 mg SL UD PRN PRN Reason: Chest Pain Stop: 05/24/20 21:10 Potassium Chloride (Klor-Con M20) 20 meq PO BID [facility] Stop: 05/25/20 08:59 Last Admin: 04/25/20 08:18 Dose: 20 meq Documented by:
[2020-04-25] MEDS: LORazepam 0.25 MG/0.5 ML VIAL IV PRN (21:38)
[2020-04-25] MEDS: ACETAMINOPHEN 325 MG TAB PO PRN (22:07)
[2020-04-26] MEDS: FUROSEMIDE 40 MG in SYRINGE 0 ML IV SCH ×2 (05:51→17:04)
[2020-04-26 07:41] LABS: Albumin Level 2.7 gm/dl (3.4-5.0); BUN Creatinine Ratio 32.7 (10-20); Bilirubin Direct 1.1 mg/dl (0-0.2); Calcium 7.8 mg/dl (8.5-10.1); Creatinine Clr Calc Pharmacy 86.9 ml/min; Est GFR (African American) 82.8; Est GFR (Non-African American) 71.4; Potassium 4.2 mmol/L (3.5-5.1)
[2020-04-26] MEDS: ACETAMINOPHEN 325 MG TAB PO PRN (07:41)
[2020-04-26] MEDS: FERROUS SULFATE 325 MG TAB PO SCH ×3 (07:42→17:04)
[2020-04-26] MEDS: POTASSIUM CHLORIDE 20 MEQ TABCR PO SCH ×2 (07:43→19:46)
[2020-04-26] MEDS: ASPIRIN 81 MG ECTAB PO SCH (07:43)
[2020-04-26] MEDS: METOPROLOL TARTRATE 25 MG TAB PO SCH ×2 (07:43→19:46)
[2020-04-26] MEDS: ENOXAPARIN INJ 40 MG/0.4 ML SYR SQ SCH (07:44)
[2020-04-26] MEDS: NICOTINE 21 MG/24 HR TDSY TD SCH (07:44)
[2020-04-26 07:52] LABS: Bilirubin,Total 1.5 mg/dl (0.2-1); Total Protein 7.7 gm/dl (6.4-8.2)
[2020-04-26] MEDS: BUPRENORPHINE/NALOXONE 8/2 MG TAB SL SCH ×3 (07:53→21:25)
[2020-04-26 07:57] LABS: Hematocrit (blood only) 25.3 % (37-47); Hemoglobin 7.8 g/dL (12.0-16.0); Mean Corpuscular Hemoglobin 31.5 pg (25-34); Mean Corpuscular Hgb Conc 30.8 g/dL (32-36); Mean Platelet Volume 9.9 fL (7.4-10.4); Platelet Count 403 K/uL (130-400); RDW Coefficient of Variation 19.1 % (11.5-14.5); RDW Standard Deviation 70.1 fL (36.4-46.3); Red Blood Count 2.48 M/uL (4.2-5.4); White Blood Count 14.17 K/uL (4.8-10.8)
[2020-04-26 08:32] LABS: Creatinine Urine Random < 13.0 mg/dl; Total Protein Urine Random 35.1 mg/dl (0-11.9)
[2020-04-26 08:33] LABS: Amphetamines+Metham, Urine Neg (Neg); Barbiturates, Urine Neg (Neg); Benzodiazepine, Urine Neg (Neg); Cocaine, Urine Neg (Neg); MDMA (Ecstacy), Urine Neg (Neg); Methadone, Urine Neg (Neg); Opiate, Urine Neg (Neg); Phencyclidine, Urine Neg (Neg)
[2020-04-26 09:00] LABS: INR 1.4 (0.9-1.1); Prothrombin Time 14.3 Seconds (9.0-12.0)
[2020-04-26] MEDS ORDERED: FOLIC ACID 1 MG TAB PO SCH (09:00)
[2020-04-26 09:06] LABS: Hepatitis B Surface Antigen Neg (Neg)
--- NOTE | 2020-04-26 09:18 | XRay Report ---
XR chest 2V PA/lateral CLINICAL HISTORY: post diuresis dyspnea COMPARISON STUDY: 04/24/2020 FINDINGS: Persistent parenchymal infiltrative change bilaterally. Appearance again suggests component s of pulmonary edema. Mild chronic elevation right hemidiaphragm. IMPRESSION: Stable findings of pulmonary edema/congestive heart failure. No change from the prior st udy. ACT 112: Negative or not required by law. The above report was generated using voice recognition software. It may contain grammatical, syntax or spelling errors. Electronically signed by: Lb Cordova M.D. 04/26/2020 9:17 AM
--- NOTE | 2020-04-26 10:20 | Pulmonology Progress Note ---
Date of Service April 26, 2020 Assessment & Plan (1) Acute hypoxemic respiratory failure: 40-year-old female with a past medical history of mood disorder, obesity, PCOS and continuous opiate dependence presented to the hospital with acute hypoxemic respiratory failure and significant dyspnea. Echo results from yesterday were remarkably normal. I do suspect that she likely has some very mild degree of pulmonary hypertension likely secondary from OHS/SHIRA in light of her symptoms and pulmonary artery dilation on CT of her chest. She also had improvement of symptoms with diuresis. Autoimmune work-up has been started to evaluate for the possibility of lupus, Sjogren's, and other in light of her bilateral pleural effusions and bilateral infiltrates. She has a family history of lupus in her mother. Her ESR and CRP were elevated. Procalcitonin was normal. COVID-19 was negative. I am going to go ahead and perform a thoracentesis of her right hemithorax as based on the bedside ultrasound that I performed today there was a mild to moderate sized right pleural effusion. I will do this later in the afternoon today. The left side appeared relatively clear of any effusion. She continues to have diffuse bilateral infiltrates that may be sequela of pulmonary edema. Recommend continued diuresis. Hold on steroids at this time. Will consider outpatient bronchoscopy in the future if the infiltrates continue to persist. She would benefit from a high-resolution CT in a couple weeks after she has been diuresed adequately. Pulmonary will continue to follow. (2) Pulmonary edema: (3) Iron deficiency: (4) Anemia: (5) Hepatomegaly: (6) Transaminitis: (7) Pleural effusion on left: (8) Pleural effusion on right: Admission and Anticipated Discharge Date Admission Date: April 24, 2020 Subjective Patient standing up today in the room. Notes that her sleep last night was much better. She is very happy with her improvement in oxygen. She is currently on 3 L of supplemental oxygen and saturating well. Minimal chest pain. No shortness of breath. No nausea or vomiting Review of Systems Review of Systems: All systems reviewed & are unremarkable except as noted in Subjective Physical Exam Constitutional: Does not appear to be in any significant physical distress Eyes: PERRL, conjunctivae normal, anicteric sclerae ENMT: external ear and nose normal, oropharynx normal Mallampati Class: III Poor dentition. Neck: normal visual inspection Respiratory: Mild crackles bilaterally. Diminished at the bases. Cardiovascular: 1+ pitting edema in the lower extremities. Regular rate and rhythm. No obvious murmur. Gastrointestinal (Abdomen): normal bowel sounds, soft, nontender, no hepatosplenomegaly Musculoskeletal: no cyanosis or clubbing, extremities motor strength 5/5 Skin: no rashes, warm and dry Neurologic: PERRL, EOMI, accommodation nl, no face palsy, no dysarthria Psychiatric: Anxious. Results & Data Results & Data ([facility]) Vital Signs (Past 12 Hours) Vital Signs Temp Pulse Resp BP BP Pulse Ox 04/26/20 08:00 111/73 04/26/20 07:12 98.1 F 89 22 91/90 L 96 04/26/20 04:15 97.9 F 76 20 103/67 92 04/25/20 23:12 97.7 F 84 20 111/74 90 I personally reviewed the patient's labs, chest imaging and previous notes. PG Care Time/CCT Total # of Minutes Spent Total Time Spent with Patient: Total time spent is greater than 50% in coordination of care (as documented) at patient's floor/unit and/or counseling patient: Coding Level of Care Code 13355 Subseq Hosp Care Lvl 3 Diagnoses Acute hypoxemic respiratory failure J96.01 Pulmonary edema J81.1 Iron deficiency E61.1 Anemia D64.9 Hepatomegaly R16.0 Transaminitis R74.0 Pleural effusion on left J90 Pleural effusion on right J90
--- NOTE | 2020-04-26 11:39 | Hospitalist Progress Note ---
Date of Service April 26, 2020 Assessment & Plan (1) Acute hypoxemic respiratory failure: Six to eight weeks of worsening SOB, weight gain and progressive dyspnea on exertion with development of pleural effusions. CT angio of the chest reveals some interstitial edema which may be suggestive of a pneumonitis-DAH should also be considered in setting of falling H/H. Infection considered, however, patient has not been febrile or coughing and with the length of time this has been going on, acute infection is thought less likely. COVID test is negative. Also in support of this is a negative procalcitonin. Agree with holding further antibiotics at this time. Differential includes but not limited to congestive heart failure, vasculitis such as granulomatosis with polyangiitis (lung involvement and proteinuria) or other collagen vascular disorder such as lupus (no joint involvement but biological mother had SLE), hepatic disease such as developing cirrhosis (min amount of abdominopelvic ascites with reported abdominal enlargement over 6 weeks, low alb, elevated INR to 1.5, elevated TB to 2.5), hepatopulmonary syndrome, malignancy. Will check a hepatitis panel, autoimmune panel, cont Lasix therapy for relief of symptoms, quantify proteinuria, check UDS. Will consult Gastroenterology to assist with elucidation of liver involvement. It may be very helpful to obtain pleural fluid diagnostics tomorrow to see if this is transudative or exudative or if malignant cells are present. (2) Folate deficiency: may be related to poor nutrition vs worsening anemia. Replacement started. (3) Iron deficiency anemia: WORSENING ANEMIA--Normal for menstruating female. No overt blood loss noted by patient. Start iron supplementation. (4) Pleural effusion on right: Likely contributing to her shortness of breath. Cont diuretic therapy and pulm to consider a thoracentesis. (5) Hepatic steatosis: noted on CT imaging. (6) Dental caries: extensive (7) Morbid obesity: (8) PCOS (polycystic ovarian syndrome): not on treatment with metformin (9) Chronic pain: Uses suboxone regularly. (10) Smoker: Nicotine patch. Strongly advised to quit. (11) DVT prophylaxis: Lovenox Full Code Dispo-uncertain, pending workup. Zulema Contreras DO [facility] Hospitalist Admission and Anticipated Discharge Date Admission Date: April 24, 2020 Physical Exam Physical Exam: CONSTITUTIONAL: obese, vitals as above, generally well- appearing EYES: pupils equal , round and reactive. normal conjunctivae, no scleral icterus ENT: external ear and nose normal, oropharynx clear, MMM RESPIRATORY: clear to auscultation bilaterally, no crackles, rales or wheezes, normal respiratory effort CARDIOVASCULAR: regular rate and rhythm, S1 and 2 heard without murmurs, gallops or rubs, no JVD, no peripheral edema GASTROINTESTINAL: soft, nontender, nondistended, no guarding. MUSCULOSKELETAL: strength 5/5 throughout, head is normocephalic and atraumatic, neck supple, normal palpation of chest wall without tenderness SKIN: warm and dry NEUROLOGIC: No facial palsy, no dysarthria. CN 2-12 grossly intact, no sensory deficit, normal cognition, normal speech, no tremor. No gross focal deficits. PSYCHIATRIC: alert cooperative and oriented to person, place and time. Results & Data Results & Data ([facility]) Vital Signs (Past 12 Hours) Vital Signs Temp Pulse Resp BP BP Pulse Ox 04/26/20 11:19 36.8 C 97 H 22 98/66 L 88 L 04/26/20 08:00 111/73 04/26/20 07:12 36.7 C 89 22 91/90 L 96 04/26/20 04:15 36.6 C 76 20 103/67 92 Laboratory Results Short CBC 04/26/20 Range/Units 06:50 WBC 14.17 H (4.8-10.8) K/uL Hgb 7.8 L (12.0-16.0) g/dL Hct 25.3 L (37-47) % Plt Count 403 H (130-400) K/uL BMP 04/26/20 06:50 Sodium 138 Potassium 4.2 Chloride 103 Carbon Dioxide 28 BUN 33 H Creatinine 1.00 Glucose 81 Calcium 7.8 L Cardiac Enzymes 04/26/20 Range/Units 10:09 Total Creatine Kinase 66 (26-192) U/L Liver Function 04/26/20 Range/Units 06:50 Total Bilirubin 1.5 H (0.2-1) mg/dl Direct Bilirubin 1.1 H (0-0.2) mg/dl AST 60 H (15-37) U/L ALT 21 (12-78) U/L Alkaline Phosphatase 137 H (45-117) U/L Albumin 2.7 L (3.4-5.0) gm/dl Diagnostic Findings XR chest 2V PA/lateral CLINICAL HISTORY: post diuresis dyspnea COMPARISON STUDY: 04/24/2020 FINDINGS: Persistent parenchymal infiltrative change bilaterally. Appearance again suggests components of pulmonary edema. Mild chronic elevation right hemidiaphragm. IMPRESSION: Stable findings of pulmonary edema/congestive heart failure. No change from the prior study. Medications Administered Current Inpatient Medications Acetaminophen (Tylenol) 325 mg PO Q6H PRN PRN Reason: Mild Pain Stop: 05/24/20 21:10 Last Admin: 04/26/20 07:41 Dose: 325 mg Documented by: Aspirin (Ecotrin Ectab) 81 mg PO QAM [facility] Stop: 05/25/20 08:59 Last Admin: 04/26/20 07:43 Dose: 81 mg Documented by: Buprenorphine/Naloxone (Suboxone 8 Mg/2 Mg) 0.5 tab SL TID [facility] Stop: 05/24/20 21:59 Last Admin: 04/26/20 07:53 Dose: 0.5 tab Documented by: Enoxaparin Sodium (Lovenox) 40 mg SQ [facility] Stop: 05/25/20 08:59 Last Admin: 04/26/20 07:44 Dose: 40 mg Documented by: Ferrous Sulfate (Feosol) 325 mg PO TIDM [facility] Stop: 05/26/20 07:59 Last Admin: 04/26/20 07:42 Dose: 325 mg Documented by: Folic Acid (Folvite) 1 mg PO QAM [facility] Stop: 05/26/20 08:59 Last Admin: 04/26/20 07:42 Dose: 1 mg Documented by: Lorazepam (Ativan) 0.25 mg in 0.5 mls @ 0.5 mls/min IV Q4H PRN PRN Reason: Anxiety Stop: 05/24/20 21:10 Last Admin: 04/25/20 21:38 Dose: 0.5 mls/min Documented by: Promethazine HCl 12.5 mg/ (Sodium Chloride) 50.5 mls @ 202 mls/hr IV Q6H PRN PRN Reason: Nausea And Vomiting Stop: 05/24/20 21:10 Furosemide 40 mg/ Syringe 4 mls @ 4 mls/min IV Q12H [facility] Stop: 05/26/20 05:59 Last Admin: 04/26/20 05:51 Dose: 4 mls/min Documented by: Ipratropium [place] (Atrovent 0.02% 0.5mg/2.5ml) 0.5 mg INH Q4H PRN PRN Reason: Shortness Of Breath Or Wheezing Stop: 05/24/20 21:10 Levalbuterol HCl (Xopenex 1.25mg/0.5ml Neb) 1.25 mg INH Q4H PRN PRN Reason: Shortness Of Breath Or Wheezing Stop: 05/24/20 21:10 Metoprolol Tartrate (Lopressor) 12.5 mg PO BID [facility] Stop: 05/25/20 08:59 Last Admin: 04/26/20 07:43 Dose: Not Given Documented by: Miscellaneous (Remove Nicoderm Patch) 1 ea N/A DAILY@0859 [facility] Stop: 05/25/20 08:58 Last Admin: 04/26/20 07:44 Dose: 1 ea Documented by: Nicotine (Nicoderm Cq) 21 mg TD QAM [facility] Stop: 05/24/20 21:10 Last Admin: 04/26/20 07:44 Dose: 21 mg Documented by: Nitroglycerin (Nitrostat) 0.4 mg SL UD PRN PRN Reason: Chest Pain Stop: 05/24/20 21:10 Potassium Chloride (Klor-Con M20) 20 meq PO BID [facility] Stop: 05/25/20 08:59 Last Admin: 04/26/20 07:43 Dose: 20 meq Documented by:
[2020-04-26] MEDS: LORazepam 0.25 MG/0.5 ML VIAL IV PRN (12:17)
--- NOTE | 2020-04-26 12:20 | Cardiology Progress Note ---
Date of Service April 26, 2020 Assessment & Plan (1) Acute hypoxemic respiratory failure: (2) Pneumonitis: (3) Anemia: (4) Folate deficiency: (5) Iron deficiency: (6) Cirrhosis: GI and pulmonary consults are appreciated. The patient will have her pleural effusion tapped this afternoon. She remains hypoxic requiring supplemental oxygen. Numerous labs are pending. Subjective He patient remains hypoxic. She became short of breath walking to the bathroom and her sats dropped. Review of Systems Review of Systems: All systems reviewed & are unremarkable except as noted in HPI & below Nothing additional to add. Physical Exam Physical Exam: General: no acute distress and stated age Head: normocephalic, no masses, lesions, tenderness or abnormalities Eyes: conjunctiva are pink and non-injected, sclera clear Neck: supple, no adenopathy, no bruits, normal jugular venous pulse, no hepatojugular reflux Chest: normal shape and normal respiratory effort Lungs: clear to auscultation and percussion Cardiac Exam: - regular rate & rhythm, no murmurs gallops or rubs - normal S1, normal S2 Pulses: 2(+) throughout Abdomen: abdomen soft, non-tender, no abnormal masses and no hepatosplenomegaly Musculoskeletal: no gait disturbance, no joint inflammation, no deforming arthritis Extremities: no edema and no cyanosis Neuro: grossly normal exam Results & Data Vital Signs (Past 12 Hours) Vital Signs Temp Pulse Resp BP BP Pulse Ox 04/26/20 11:19 36.8 C 97 H 22 98/66 L 88 L 04/26/20 08:00 111/73 04/26/20 07:12 36.7 C 89 22 91/90 L 96 04/26/20 04:15 36.6 C 76 20 103/67 92 Laboratory Results Laboratory Results - last 24 hr 04/25/20 04/25/20 04/26/20 12:45 14:36 06:50 WBC RBC Hgb Hct MCV MCH MCHC RDW Std Deviation RDW Coeff of Christine Plt Count MPV ESR PT INR Sodium 138 Potassium 4.2 Chloride 103 Carbon Dioxide 28 Anion Gap 7.0 BUN 33 H Creatinine 1.00 Est Cr Clr Drug Dosing 86.9 Est GFR ( Amer) 82.8 Est GFR (Non-Af Amer) 71.4 BUN/Creatinine Ratio 32.7 H Glucose 81 Calcium 7.8 L Total Bilirubin 1.5 H Direct Bilirubin 1.1 H AST 60 H ALT 21 Alkaline Phosphatase 137 H Total Creatine Kinase C-Reactive Protein Total Protein 7.7 Albumin 2.7 L Procalcitonin 0.27 Ur Random Creatinine U Random Total Protein Protein/Creatinin Ratio Urine Opiates Screen Ur Methadone, Qual Urine Barbiturates Ur Phencyclidine (PCP) U Amphetamin/Meth Scrn MDMA (Ecstasy) Screen U Benzodiazepines Scrn Ur Cocaine Metabolite U Marijuana (THC) Screen Rheumatoid Factor Cycl Citrul Peptide IgG MICHAEL Screen Proteinase 3 (PR3) ANCA Anti-Neutrophil (Flow) PAT-1 Antibody SS-A/Ro Antibody SS-B/La Antibody Sm ([place]) Antibody THREAD GRINDER Antibody Scl-70 Scleroderma Ab Double Strand DNA Ab Anti-ds DNA (Crithidia) Anti-Centromere Ab Complement C3 Complement C4 COVID-19 PCR NEGATIVE Hepatitis A IgM Ab Hep Bs Antigen Hep B Core IgM Ab Hepatitis C Antibody HCV RNA Qual (TMA) 04/26/20 04/26/20 04/26/20 06:50 07:15 07:15 WBC 14.17 H RBC 2.48 L Hgb 7.8 L Hct 25.3 L MCV 102.0 H MCH 31.5 MCHC 30.8 L RDW Std Deviation 70.1 H RDW Coeff of Christine 19.1 H Plt Count 403 H MPV 9.9 ESR 52 H PT INR Sodium Potassium Chloride Carbon Dioxide Anion Gap BUN Creatinine Est Cr Clr Drug Dosing Est GFR ( Amer) Est GFR (Non-Af Amer) BUN/Creatinine Ratio Glucose Calcium Total Bilirubin Direct Bilirubin AST ALT Alkaline Phosphatase Total Creatine Kinase C-Reactive Protein 1.29 H Total Protein Albumin Procalcitonin Ur Random Creatinine U Random Total Protein Protein/Creatinin Ratio Urine Opiates Screen Ur Methadone, Qual Urine Barbiturates Ur Phencyclidine (PCP) U Amphetamin/Meth Scrn MDMA (Ecstasy) Screen U Benzodiazepines Scrn Ur Cocaine Metabolite U Marijuana (THC) Screen Rheumatoid Factor Cycl Citrul Peptide IgG MICHAEL Screen Proteinase 3 (PR3) ANCA Anti-Neutrophil (Flow) PAT-1 Antibody SS-A/Ro Antibody SS-B/La Antibody Sm ([place]) Antibody THREAD GRINDER Antibody Scl-70 Scleroderma Ab Double Strand DNA Ab Anti-ds DNA (Crithidia) Anti-Centromere Ab Complement C3 Complement C4 COVID-19 PCR Hepatitis A IgM Ab Hep Bs Antigen Hep B Core IgM Ab Hepatitis C Antibody HCV RNA Qual (TMA) 04/26/20 04/26/20 04/26/20 07:15 07:15 07:15 WBC RBC Hgb Hct MCV MCH MCHC RDW Std Deviation RDW Coeff of Christine Plt Count MPV ESR PT INR Sodium Potassium Chloride Carbon Dioxide Anion Gap BUN Creatinine Est Cr Clr Drug Dosing Est GFR ( Amer) Est GFR (Non-Af Amer) BUN/Creatinine Ratio Glucose Calcium Total Bilirubin Direct Bilirubin AST ALT Alkaline Phosphatase Total Creatine Kinase C-Reactive Protein Total Protein Albumin Procalcitonin Ur Random Creatinine U Random Total Protein Protein/Creatinin Ratio Urine Opiates Screen Ur Methadone, Qual Urine Barbiturates Ur Phencyclidine (PCP) U Amphetamin/Meth Scrn MDMA (Ecstasy) Screen U Benzodiazepines Scrn Ur Cocaine Metabolite U Marijuana (THC) Screen Rheumatoid Factor Cycl Citrul Peptide IgG MICHAEL Screen Pending Proteinase 3 (PR3) ANCA Anti-Neutrophil (Flow) PAT-1 Antibody SS-A/Ro Antibody Pending SS-B/La Antibody Pending Sm ([place]) Antibody Pending THREAD GRINDER Antibody Pending Scl-70 Scleroderma Ab Pending Double Strand DNA Ab Anti-ds DNA (Crithidia) Pending Anti-Centromere Ab Pending Complement C3 Pending Complement C4 Pending COVID-19 PCR Hepatitis A IgM Ab Pending Hep Bs Antigen Neg Hep B Core IgM Ab Pending Hepatitis C Antibody Prelim Pos A HCV RNA Qual (TMA) 04/26/20 04/26/20 04/26/20 07:15 07:15 08:00 WBC RBC Hgb Hct MCV MCH MCHC RDW Std Deviation RDW Coeff of Christine Plt Count MPV ESR PT INR Sodium Potassium Chloride Carbon Dioxide Anion Gap BUN Creatinine Est Cr Clr Drug Dosing Est GFR ( Amer) Est GFR (Non-Af Amer) BUN/Creatinine Ratio Glucose Calcium Total Bilirubin Direct Bilirubin AST ALT Alkaline Phosphatase Total Creatine Kinase C-Reactive Protein Total Protein Albumin Procalcitonin Ur Random Creatinine U Random Total Protein Protein/Creatinin Ratio Urine Opiates Screen Neg Ur Methadone, Qual Neg Urine Barbiturates Neg Ur Phencyclidine (PCP) Neg U Amphetamin/Meth Scrn Neg MDMA (Ecstasy) Screen Neg U Benzodiazepines Scrn Neg Ur Cocaine Metabolite Neg U Marijuana (THC) Screen Neg Rheumatoid Factor Cycl Citrul Peptide IgG MICHAEL Screen Proteinase 3 (PR3) ANCA Pending Anti-Neutrophil (Flow) PAT-1 Antibody SS-A/Ro Antibody SS-B/La Antibody Sm ([place]) Antibody THREAD GRINDER Antibody Scl-70 Scleroderma Ab Double Strand DNA Ab Anti-ds DNA (Crithidia) Anti-Centromere Ab Complement C3 Complement C4 COVID-19 PCR Hepatitis A IgM Ab Hep Bs Antigen Hep B Core IgM Ab Hepatitis C Antibody HCV RNA Qual (TMA) Pending 04/26/20 04/26/20 04/26/20 08:00 08:37 10:09 WBC RBC Hgb Hct MCV MCH MCHC RDW Std Deviation RDW Coeff of Christine Plt Count MPV ESR PT 14.3 H INR 1.4 H Sodium Potassium Chloride Carbon Dioxide Anion Gap BUN Creatinine Est Cr Clr Drug Dosing Est GFR ( Amer) Est GFR (Non-Af Amer) BUN/Creatinine Ratio Glucose Calcium Total Bilirubin Direct Bilirubin AST ALT Alkaline Phosphatase Total Creatine Kinase 66 C-Reactive Protein Total Protein Albumin Procalcitonin Ur Random Creatinine < 13.0 U Random Total Protein 35.1 H Protein/Creatinin Ratio TNP Urine Opiates Screen Ur Methadone, Qual Urine Barbiturates Ur Phencyclidine (PCP) U Amphetamin/Meth Scrn MDMA (Ecstasy) Screen U Benzodiazepines Scrn Ur Cocaine Metabolite U Marijuana (THC) Screen Rheumatoid Factor Cycl Citrul Peptide IgG MICHAEL Screen Proteinase 3 (PR3) ANCA Anti-Neutrophil (Flow) PAT-1 Antibody SS-A/Ro Antibody SS-B/La Antibody Sm ([place]) Antibody THREAD GRINDER Antibody Scl-70 Scleroderma Ab Double Strand DNA Ab Anti-ds DNA (Crithidia) Anti-Centromere Ab Complement C3 Complement C4 COVID-19 PCR Hepatitis A IgM Ab Hep Bs Antigen Hep B Core IgM Ab Hepatitis C Antibody HCV RNA Qual (TMA) 04/26/20 04/26/20 10:09 Unknown WBC RBC Hgb Hct MCV MCH MCHC RDW Std Deviation RDW Coeff of Christine Plt Count MPV ESR PT INR Sodium Potassium Chloride Carbon Dioxide Anion Gap BUN Creatinine Est Cr Clr Drug Dosing Est GFR ( Amer) Est GFR (Non-Af Amer) BUN/Creatinine Ratio Glucose Calcium Total Bilirubin Direct Bilirubin AST ALT Alkaline Phosphatase Total Creatine Kinase C-Reactive Protein Total Protein Albumin Procalcitonin Ur Random Creatinine U Random Total Protein Protein/Creatinin Ratio Urine Opiates Screen Ur Methadone, Qual Urine Barbiturates Ur Phencyclidine (PCP) U Amphetamin/Meth Scrn MDMA (Ecstasy) Screen U Benzodiazepines Scrn Ur Cocaine Metabolite U Marijuana (THC) Screen Rheumatoid Factor Pending Cycl Citrul Peptide IgG 0.46 MICHAEL Screen Proteinase 3 (PR3) Pending ANCA Anti-Neutrophil (Flow) Pending PAT-1 Antibody Pending SS-A/Ro Antibody Pending SS-B/La Antibody Pending Sm ([place]) Antibody Pending THREAD GRINDER Antibody Pending Scl-70 Scleroderma Ab Double Strand DNA Ab Pending Anti-ds DNA (Crithidia) Anti-Centromere Ab Complement C3 Complement C4 COVID-19 PCR Hepatitis A IgM Ab Hep Bs Antigen Hep B Core IgM Ab Hepatitis C Antibody HCV RNA Qual (TMA) Medications Administered Current Inpatient Medications Acetaminophen (Tylenol) 325 mg PO Q6H PRN PRN Reason: Mild Pain Stop: 05/24/20 21:10 Last Admin: 04/26/20 07:41 Dose: 325 mg Documented by: Aspirin (Ecotrin Ectab) 81 mg PO [facility] Stop: 05/25/20 08:59 Last Admin: 04/26/20 07:43 Dose: 81 mg Documented by: Buprenorphine/Naloxone (Suboxone 8 Mg/2 Mg) 0.5 tab SL TID [facility] Stop: 05/24/20 21:59 Last Admin: 04/26/20 07:53 Dose: 0.5 tab Documented by: Enoxaparin Sodium (Lovenox) [facility] [place]: 05/25/20 08:59 Last Admin: 04/26/20 07:44 Dose: 40 mg Documented by: Ferrous Sulfate (Feosol) 325 mg PO TIDM [facility] Stop: 05/26/20 07:59 Last Admin: 04/26/20 12:04 Dose: 325 mg Documented by: Folic Acid (Folvite) 1 mg [facility] [place]: 05/26/20 08:59 Last Admin: 04/26/20 07:42 Dose: 1 mg Documented by: Lorazepam (Ativan) 0.25 mg in 0.5 mls @ 0.5 mls/min IV Q4H PRN PRN Reason: Anxiety Stop: 05/24/20 21:10 Last Admin: 04/25/20 21:38 Dose: 0.5 mls/min Documented by: Promethazine HCl 12.5 mg/ (Sodium Chloride) 50.5 mls @ 202 mls/hr IV Q6H PRN PRN Reason: Nausea And Vomiting Stop: 05/24/20 21:10 Furosemide 40 mg/ Syringe 4 mls @ 4 mls/min IV Q12H [facility] Stop: 05/26/20 05:59 Last Admin: 04/26/20 05:51 Dose: 4 mls/min Documented by: Furosemide 20 mg/ Syringe 2 mls @ 4 mls/min IV ONE ONE Stop: 04/26/20 12:31 Ipratropium [place] (Atrovent 0.02% 0.5mg/2.5ml) 0.5 mg INH Q4H PRN PRN Reason: Shortness Of Breath Or Wheezing Stop: 05/24/20 21:10 Levalbuterol HCl (Xopenex 1.25mg/0.5ml Neb) 1.25 mg INH Q4H PRN PRN Reason: Shortness Of Breath Or Wheezing Stop: 05/24/20 21:10 Metoprolol Tartrate (Lopressor) 12.5 mg PO BID [facility] Stop: 05/25/20 08:59 Last Admin: 04/26/20 07:43 Dose: Not Given Documented by: Miscellaneous (Remove Nicoderm Patch) 1 ea N/A DAILY@0859 [facility] Stop: 05/25/20 08:58 Last Admin: 04/26/20 07:44 Dose: 1 ea Documented by: Nicotine (Nicoderm Cq) 21 mg TD QAM [facility] Stop: 05/24/20 21:10 Last Admin: 04/26/20 07:44 Dose: 21 mg Documented by: Nitroglycerin (Nitrostat) 0.4 mg SL UD PRN PRN Reason: Chest Pain Stop: 05/24/20 21:10 Potassium Chloride (Klor-Con M20) 20 meq PO BID [facility] Stop: 05/25/20 08:59 Last Admin: 04/26/20 07:43 Dose: 20 meq Documented by:
[2020-04-26] MEDS ORDERED: FUROSEMIDE 20 MG in SYRINGE 0 ML IV ONE (12:30)
[2020-04-26] MEDS ORDERED: LORazepam 0.5 MG/1 ML VIAL IV PRN (12:44)
--- NOTE | 2020-04-26 13:01 | Gastrointestinal Consultation ---
Date of Consultation April 26, 2020 Assessment & Plan (1) Acute hypoxemic respiratory failure: (2) Hepatic steatosis: (3) Transaminitis: Pt is a 40 y/o female admitted w acute respiratory failure and signs of congestive heart failure, pulmonary hypertension, currently evaluated liver disease. Noted hepatic steatosis w mildly elevated LFTs. HCV antibody +, viral load pending. - Diuretics management per primary team - Pulmonology following, planning for thoracentesis today - Will obtain additional autoimmune serologies (MICHAEL, AMA, Anti smooth muscle Ab, SPEP), check ceruloplasmin, A1A, iron studies - F/U full hepatitis a/b/c serologies - U/S guided diagnostic paracentesis w fluid analysis & SAAG calculation to check if ascites accumulation driven by cardiac vs hepatic etiology - Upon her DC would recommend establishing her in our Hepatology clinic and future plans for workup including Transjugular liver bx w portal pressure measurements, and Echocardiogram w saline bubble study Supervising Physician Co-Signing Physician Notes Attending attestation I have seen, examined this patient, and agree with the findings and above by our mid-level provider SHAAN Cook, with the following additions: Patient with volume overload, pulmonary hypertension, unsure about potential diastolic dysfunction, however no definitive obvious etiology of spencer decompensated liver cirrhosis. Certainly portal pulmonary syndrome, hepatic hydrothorax are all, are potentials. We will do a serological examination, ascites and pleural fluid analysis if possible, will likely require transjugular biopsy to measure portal pressures as well as right atrial pressure. We will follow History of Present Illness Reason for Consultation: Eval for possible liver disease Requesting Physician: Dr. Zulema Contreras Attending Physician: Dr. Jerald Hernandez History of Present Illness Pt is a 40 y/o female who is being evaluated for possible liver disease. She presented yesterday w c/o JOHNS, L sided chest pain 2 weeks ago which had resolved and reported hypoxia (O2 sat 70s% when she checked w own pulse ox at home). She denies associated fever, chills, CP. + SOB but no cough. She noticed increased abd and leg swelling w 22lbs weight gain in last month. On eval she was noted to have COVID 19 was negative. On eval, labs notable for leukocytosis, macrocytic anemia, LFTs up: Tbili 1.1, AST 100, ALT 61, alk phose 130. INR 1.4. Imaging studies (CXR, CT abd/pelvis, CTA chest,) showed signs of cardiomegaly w congestive failure and interstitial edema. She does have also signs of hepatic steatosis. Echo showed normal EF w elevated pulmonary pressures. Noted Hep C + antibody on hepatitis screening. Pt denies known hx of cardiopulmonary or liver diseases. She has hx of PCOS, mother w hx of lupus. + tattoos, facial piercing. She denies tobacco, ETOH, illicit drug abuses. She is on Suboxone. Allergies Allergy/AdvReac Type Severity Reaction Status Date / Time mushroom Allergy Severe ANAPHYLAXIS Verified 04/24/20 15:29 onion Allergy Severe ANAPHYLAXIS Verified 04/24/20 15:29 tramadol Allergy Mild RASH AND Verified 04/24/20 15:29 ITCHING ketorolac Allergy Unknown RASH Verified 04/24/20 15:29 green peppers Allergy Severe ANAPHYLAXIS Uncoded 04/24/20 15:29 Plasencia Pepper Allergy Unknown ANAPHYLAXIS Uncoded 04/24/20 15:29 FROM GREEN PEPPER Home Medications Home Medications Medication Instructions Recorded Confirmed Type albuterol sulfate 2 puff INHALATION Q4 PRN 04/24/20 04/24/20 History buprenorphine-naloxone 1.5 tab SUBLINGUAL UD 04/24/20 04/24/20 History Patient History Medical History Hepatomegaly Pleural effusion on left Pleural effusion on right Pulmonary edema Transaminitis Social History Preferred Language: Nigerien Communication Ability: Effective Insulator Helper Required: No Beliefs That Will Affect Care: None Current Living Situation: Spouse and Family Other Information That Helps Us Care for You: No Feels Safe at Home: Yes Safety Concerns: Feels Safe At This Time Smoking Status: Current every day smoker Tobacco Type: cigarettes ; Cigarettes Per Day: 10 ; Tobacco Cessation Education Requested by Patient: No Hx Alcohol Use: Yes Alcohol type: hard liquor Hx Substance Use: No Review of Systems Review of Systems: All systems reviewed & are unremarkable except as noted in HPI & below Physical Exam Constitutional: WD/WN, vitals as above + obese, well groomed, cooperative and comfortable Eyes: PERRL, conjunctivae normal, anicteric sclerae ENMT: external ear and nose normal, oropharynx normal Respiratory: Auscultation: + diminished lung sounds Cardiovascular: RRR, no murmur, no edema Gastrointestinal (Abdomen): normal bowel sounds, soft, nontender, no hepatosplenomegaly Skin: no rashes, warm and dry no jaundice Psychiatric: A+Ox3, euthymic affect Lymphatic: no lymphedema Results & Data ([facility]) Vital Signs (Past 12 Hours) Vital Signs Temp Pulse Resp BP BP Pulse Ox 04/26/20 11:19 36.8 C 97 H 22 98/66 L 88 L 04/26/20 08:00 111/73 04/26/20 07:12 36.7 C 89 22 91/90 L 96 04/26/20 04:15 36.6 C 76 20 103/67 92
--- NOTE | 2020-04-26 14:00 | Ultrasound Report ---
ULTRASOUND ASCITES CHECK CLINICAL HISTORY: Abdominal ascites. Assess for paracentesis. COMPARISON STUDY: Abdominal CT dated 04/24/2020. FINDINGS: Real-time grayscale sonography of all 4 quadrants of the abdomen was performed to assess ab dominal ascites. There is only a small volume of abdominal ascites. This was insufficient for paracen tesis. IMPRESSION: Insufficient volume of ascites for paracentesis. Electronically signed by: Jeff Ferrera M.D. 04/26/2020 1:58 PM
[2020-04-26 14:26] LABS: Iron 97 mcg/dl (35-150); Transferrin 270 mg/dl (200-360); Transferrin Percent Saturation 25 % (15-50)
--- NOTE | 2020-04-26 15:49 | Procedure Note ---
Procedure Note Date of Service April 26, 2020 Note Procedure: Diagnostic And/or therapeutic ultrasound-guided catheter thoracentesis Pyrotechnic Mixer: Dr. Moy Mcdonough Indication: Pleural effusion Consent: Signed by patient and verified with timeout prior to procedure Anesthesia: 8 mL's of 1% lidocaine without epinephrine given locally Procedure: Consent was verified and timeout performed. Appropriate imaging studies were reviewed prior to the procedure. Patient was placed in a Seated Position and limited thoracic ultrasound was performed of the Right chest. See separate imaging. The site appropriate for thoracentesis was selected. The skin was prepped and draped in normal sterile fashion. Lidocaine was used for local analgesia. Fluid was aspirated via the finder needle. A small skin ced was made with the scalpel and the catheter over the needle apparatus was advanced over the rib into the pleural space. Using the syringe one-way valve system, a total of [] mL's of [] fluid was removed. Procedure was terminated due to []. The catheter was removed and observed to be intact. A sterile dressing was applied. Post procedure chest x-ray was ordered. Fluid was sent for LDH, total protein, cell count, glucose, pH, cytology, AFB cultures, gram stain and culture and fungal cultures. The patient tolerated the procedure well without obvious complication I am very concerned for a possible autoimmune process. Her hep C antibody is positive which occasionally can be a false positive. I have asked nephrology to see the patient for the possibility of nephrotic versus nephritic syndrome. I am also concerned about the possibility of cryoglobulinemia. Should she decompensate over the course of the next day or 2, I would recommend starting her on IV Solu-Medrol. Coding CPT Codes Pulmonary/Thoracic - Pulmonary and Thoracic: 32515 Thoracentesis w imaging ([id number]) [facility] [place] Procedure Codes (Charges) Pulmonary/Thoracic Procedure 1: Pulmonary and Thoracic: 14018 Thoracentesis w imaging
--- NOTE | 2020-04-26 16:05 | XRay Report ---
XR chest 1V portable CLINICAL HISTORY: status post right thora COMPARISON STUDY: 04/26/2020 FINDINGS: Mild improvement in aeration right hemithorax. No evidence for pneumothorax. Unchanging diffuse parenchymal infiltrative changes left hemithorax. IMPRESSION: No pneumothorax post right thoracentesis. ACT 112: Negative or not required by law. The above report was generated using voice recognition software. It may contain grammatical, syntax or spelling errors. Electronically signed by: Lb Cordova M.D. 04/26/2020 4:03 PM
[2020-04-26 17:29] LABS: Glucose Pleural Fluid 94 mg/dl
[2020-04-26 17:36] LABS: Amylase Pleural Fluid 153 U/L; LDH Pleural Fluid 144 U/L; Total Protein Pleural Fluid 3.7 g/dl
[2020-04-26 17:44] LABS: Appearance Pleural Fluid CLEAR; Color Pleural Fluid YELLOW; RBC Pleural Fluid (A) < 3000 /uL; Source Pleural Fluid RIGHT LUNG; WBC Pleural Fluid (A) 34 /uL
[2020-04-26 17:45] LABS: Neutrophils, Fluid 18 %
[2020-04-26 17:46] LABS: Basophils, Fluid 0 %; Eosinophils, Fluid 0 %; Lymphocytes, Fluid 58 %; Mono,Macrophage,Mesothelial 24 %
[2020-04-26] MEDS ORDERED: COUGH DROP (SUGAR FREE) LOZ 24 LOZ/1 BOX BUCCAL PRN (17:52)
[2020-04-26 20:35] LABS: Basophils # (auto) 0.02 K/uL (0-0.2); Basophils % (auto) 0.1 %; Eosinophils # (auto) 0.02 K/uL (0-0.5); Eosinophils % (auto) 0.1 %; Hematocrit (blood only) 27.1 % (37-47); Hemoglobin 8.4 g/dL (12.0-16.0); Immature Granulocytes # (auto) 0.03 K/uL (0.00-0.02); Immature Granulocytes % (auto) 0.2 %; Lymphocytes # (auto) 1.12 K/uL (1.2-3.4); Lymphocytes % (auto) 6.8 %; Mean Corpuscular Hemoglobin 32.1 pg (25-34); Mean Corpuscular Volume 103.4 fL (80-100); Mean Platelet Volume 9.7 fL (7.4-10.4); Monocytes # (auto) 0.62 K/uL (0.11-0.59); Monocytes % (auto) 3.8 %; Neutrophils # (auto) 14.56 K/uL (1.4-6.5); Platelet Count 360 K/uL (130-400); RDW Coefficient of Variation 19.2 % (11.5-14.5); RDW Standard Deviation 71.1 fL (36.4-46.3); Red Blood Count 2.62 M/uL (4.2-5.4); White Blood Count 16.37 K/uL (4.8-10.8)
[2020-04-26] MEDS ORDERED: STAT IV Infusion **Titration per Protocol STA (20:40)
--- NOTE | 2020-04-26 20:43 | XRay Report ---
XR chest 1V portable CLINICAL HISTORY: Shortness of breath COMPARISON STUDY: 04/26/2020 FINDINGS: There are progressive bilateral airspace opacities, asymmetric on the right. The findings l ikely represent asymmetric pulmonary edema. Pulmonary hemorrhage, pneumonia, and ARDS could appear si milar. There is a suspected small subpulmonic right pleural effusion.. IMPRESSION: Progressive asymmetric pulmonary edema pattern ACT 112: Negative or not required by law. Electronically signed by: Aamir Fiore M.D. 04/26/2020 8:41 PM
[2020-04-26 20:44] LABS: iSTAT Allen Test Pass; iSTAT Art Bld Gas pCO2 Correct 48 mmHg (35-46); iSTAT Art Bld Gas pH Corrected 7.409 (7.35-7.45); iSTAT Arterial Blood Gas HCO3 30 meg/L (19-24); iSTAT Arterial Blood Gas pCO2 48 mmHg (35-46); iSTAT Arterial Blood Gas pH 7.41 (7.35-7.45); iSTAT Arterial Blood Gas pO2 75 mmHg (80-95); iSTAT Arterial Blood Gas pO2 C 75; iSTAT Carbon Dioxide 31 mmol/L (24-31); iSTAT FiO2 80 %; iSTAT Hematocrit 29 % (37-47); iSTAT Hemoglobin 9.9 g/dl (12.0-16.0); iSTAT Potassium 4.3 mmol/L (3.3-5.0); iSTAT Site R Radial; iSTAT Sodium 140 mmol/L (135-144)
[2020-04-26] MEDS ORDERED: DEXMEDETOMIDINE HCL 200 MCG in SODIUM CHLORIDE 0.9% 48 ML IV SCH (20:45)
--- NOTE | 2020-04-26 20:45 | Critical Care Consultation ---
Date of Consultation April 26, 2020 Assessment & Plan (1) Acute hypoxemic respiratory failure: Reason Critically Ill: 40-year-old female with decompensation of acute hypoxic respiratory failure of unknown etiology transferred to the ICU for flash pulmonary edema, currently requiring BiPAP, on Precedex drip. Patient stabilized and in ICU in preparation for transfer to [facility], departed via life flight transfer service at approximately 2330. Neuro - Anxietypatient exhibited significant anxiety and was given IV Ativan, and started on Precedex drip with good result -Patient does have history of mood disorder Cardiac - Sinus tachycardia on monitor, blood pressure within normal limits without need for vasopressors Pulmonary hypertensionpulmonary trunk dilated on CT scan suggestive of pulmonary artery hypertension - Cardiac echo showed EF of 50 to 55%, mild pulmonary hypertension with PA pressure of 35 Respiratory - Acute hypoxic respiratory failurecurrently maintaining sats on BiPAP, weaning FiO2 as tolerated -CTA chest negative for PE on admission, moderate right and small left pleural effusion with associated atelectasis, diffuse patchy groundglass opacities -Right thoracentesis earlier this afternoon with 1 L removed of transudative pleural fluid -Repeat chest x-ray showed progressive asymmetric pulmonary edema -Given 125 mg Solu-Medrol, additional 40 Lasix -Patient currently stabilized on BiPAP for transfer, low threshold to intubate but currently showing improvement GI - Mild transaminitis with elevated bili and LFTs, elevated INR CT abdomen revealed hepatomegaly and hepatic steatosis without ductal dilation and hepatic and portal veins patent, small volume of abdominopelvic ascites Hep C preliminary positive, final pending RENAL/LYTES - Creatinine currently stable, urinalysis concerning for nephropathy Electrolytes within normal limits - Strict I's and O's Immunology Autoimmune disorder?Given patient's multisystem presentation, elevated CRP, elevated ERS, along with family history SLE, there is significant concern for autoimmune process -Immunology labs pending -Patient to undergo transfer to tertiary center for evaluation for plasmapheresis HEME - AnemiaH&H consistent with prior studies without need for transfusion at this time ID - Procalcitonin within normal limits, mild leukocytosis could be reactionary Urine culture and pleural fluid cultures pending No antibiotic therapy at this time LINES/IV ACCESS - PIV's DVT PROPHYLAXIS - SCDs, Lovenox I have personally spent 90 minutes of critical care time in the direct management of this patient. This is a life/limb threatening event. This includes time spent evaluating patient, direct bedside care, chart review, placing orders, interpretation of diagnostic studies, discussion with consultants, patient, and family members, as well as other required patient management activities. This time is exclusive of all separately billable procedures, and teaching time and separate from and in addition to any other critical care service time. Thank you for allowing us to participate in the care of this patient. Please refer to my attending physician's documentation for any further recommendations. (2) Iron deficiency anemia: (3) Smoker: (4) Cirrhosis: (5) Folate deficiency: (6) Morbid obesity: (7) Hepatic steatosis: (8) Pleural effusion on right: (9) Pleural effusion on left: (10) Transaminitis: (11) Iron deficiency: (12) Anemia: (13) Pneumonitis: Supervising Physician Co-Signing Physician Notes I was advised of this patient by the hospitalist service. Reviewed documentation and agree with the plan. Transfer to tertiary care for presumptive rheumatologic emergency as we do not have rheumatology nor advanced treatment options. History of Present Illness Attending Physician: Zulema Contreras DO History of Present Illness Ms. Guzman is a 40-year-old female with PMH of mood disorder, obesity, polycystic ovary disease, and opiate dependence who initially presented to the hospital with acute hypoxic respiratory failure. She was admitted to PCU 2 days ago until this afternoon when a code alexandra was called for severe hypoxia and respiratory distress. Chest x-ray showed acute pulmonary edema, no pneumothorax. Patient was placed on BiPAP and transported to the ICU. She showed significant anxiety and poor compliance with the BiPAP initially and was started on Precedex drip. She she soon began to improve from a pulmonary standpoint, and FiO2 was being weaned. Prior to this event patient had consults from pulmonology, GI, cardiology. She had underwent right thoracentesis approximately 4 hours before this event. A prior CT of the chest had revealed bilateral pleural effusions, interstitial edema suggestive of pneumonitis, however patient did not exhibit signs of infectious process. She had a COVID test which was negative. Her cardiac echo was unremarkable. She did have a family history of lupus. Her ESR and CRP were elevated and procalcitonin was normal. There was concern for an autoimmune process and work-up had been started with results pending. Decision was made to transfer patient to the ICU to stabilize and transfer to a tertiary center for evaluation for plasmapheresis. Transfer was coordinated by the primary team and patient was accepted to [facility], and transferred at approximately 2330. She remains on BiPAP and Precedex drip at that time. She had been given Solu-Medrol and additional dose of Lasix as well. I did have multiple discussions with the patient regarding transfer to a tertiary center, for which she was initially hesitant due to anxiety and fear, but was eventually agreeable. I also spoke with her significant other and her mother who are also agreeable for transfer. Consent for transfer was obtained by the patient's mother as the patient was on a sedation drip at that time. At the time of transfer the patient was stabilized without need for vasopressors, and maintaining sats on BiPAP. Allergies Allergy/AdvReac Type Severity Reaction Status Date / Time mushroom Allergy Severe ANAPHYLAXIS Verified 04/24/20 15:29 onion Allergy Severe ANAPHYLAXIS Verified 04/24/20 15:29 tramadol Allergy Mild RASH AND Verified 04/24/20 15:29 ITCHING ketorolac Allergy Unknown RASH Verified 04/24/20 15:29 green peppers Allergy Severe ANAPHYLAXIS Uncoded 04/24/20 15:29 Plasencia Pepper Allergy Unknown ANAPHYLAXIS Uncoded 04/24/20 15:29 FROM GREEN PEPPER Home Medications Home Medications Medication Instructions Recorded Confirmed Type albuterol sulfate 2 puff INHALATION Q4 PRN 04/24/20 04/24/20 History buprenorphine-naloxone 1.5 tab SUBLINGUAL UD 04/24/20 04/24/20 History Patient History Medical History Hepatomegaly Pleural effusion on left Pleural effusion on right Pulmonary edema Transaminitis Social History Preferred Language: Haitian Communication Ability: Effective [employer] Technician Required: No Beliefs That Will Affect Care: None Current Living Situation: Spouse and Family Feels Safe at Home: Yes Smoking Status: Current every day smoker Tobacco Type: cigarettes ; Cigarettes Per Day: 10 ; Hx Alcohol Use: Yes Alcohol type: hard liquor Hx Substance Use: No Review of Systems Constitutional: no fever, no chills and no sweats Eyes: No changes in vision Ear, Nose, Mouth, Throat: no sore throat and no problem reported Respiratory: + cough and + dyspnea; no hemoptysis and no wheezing Cardiovascular: no chest pain, no palpitations and no syncope Gastrointestinal: no abdominal pain, no nausea, no vomiting and no diarrhea/loose stools Integumentary: no rash and no lesions Psychiatric: + irritability and + anxiety Physical Exam Constitutional: Anxious, was initially in acute respiratory distress but became comfortable with improvement in respiratory status with BiPAP Eyes: PERRL, conjunctivae normal, anicteric sclerae ENMT: external ear and nose normal, oropharynx normal Neck: trachea midline, no thyromegaly Respiratory: Nonproductive cough, tachypnea, coarse crackles auscultated bilaterally in all pollack, symmetrical chest wall movement, no wheezing, no stridor Cardiovascular: Rate/Rhythm: + tachycardic Heart Sounds: normal S1 and normal S2 Vessels: no JVD Extremities: normal capillary refill; no edema Gastrointestinal (Abdomen): Abdomen obese, soft, nontender Skin: no rashes, warm and dry Neurologic: PERRL, EOMI, accommodation nl, no face palsy, no dysarthria Motor/Sensory: no pronator drift Psychiatric: Orientation: oriented x 3 Affect: + anxious affect Mood: + anxious mood Thought Process: + perseveration; + thought process not clear or coherent Thought Content: + paranoid Cognition: recent memory grossly intact Insight: + limited insight Judgement: + limited judgement Results & Data Results & Data ([facility]) Vital Signs (Past 12 Hours) Vital Signs Temp Pulse Pulse Resp BP Pulse Ox 04/26/20 18:53 37.3 C 107 H 24 93/55 L 77 L 04/26/20 16:00 91 H 04/26/20 15:11 36.7 C 99 H 22 110/54 L 90 04/26/20 11:19 36.8 C 97 H 22 98/66 L 88 L Coding Level of Care Code Critical Care ea addt'l 30 min Diagnoses Acute hypoxemic respiratory failure J96.01 Iron deficiency anemia D50.9 Smoker F17.200 Cirrhosis K74.60 Folate deficiency E53.8 Morbid obesity E66.01 Hepatic steatosis K76.0 Pleural effusion on right J90 Pleural effusion on left J90 Transaminitis R74.0 Iron deficiency E61.1 Anemia D64.9 Pneumonitis J18.9
[2020-04-26] MEDS ORDERED: methylPREDNISolone 125 MG in SYRINGE 0 ML IV STA ×2 (20:49→21:24)
[2020-04-26] MEDS ORDERED: LORazepam 1 MG/2 ML VIAL IV STA (20:49)
[2020-04-26 20:50] LABS: BUN Creatinine Ratio 25.7 (10-20); Blood Urea Nitrogen 28 mg/dl (7-18); Calcium 8.3 mg/dl (8.5-10.1); Carbon Dioxide 28 mmol/L (21-32); Chloride 101 mmol/L (98-107); Est GFR (African American) 73.8; Est GFR (Non-African American) 63.6; Glucose 111 mg/dl (70-99); Potassium 4.2 mmol/L (3.5-5.1); Sodium 137 mmol/L (136-145)
[2020-04-26 20:54] LABS: Troponin I < 0.015 ng/ml (0-0.045)
[2020-04-26] MEDS ORDERED: ICU PROTOCOL FOR HYPERGLYCEMIA PRN (21:57)
[2020-04-26] MEDS ORDERED: FUROSEMIDE 40 MG in SYRINGE 0 ML IV ONE (22:10)
--- NOTE | 2020-04-26 22:43 | Discharge Summary ---
Date of Service April 26, 2020 Admission HPI Per Admitting Provider History obtained from patient and records. Medical history significant for chronic anemia (baseline hemoglobin of 10 as of 2016), mood disorder, PCOS, hypothyroidism as per records, chronic pain on Suboxone Rx, ongoing tobacco abuse. Last confinement 2015 under obstetrics service for care after spontaneous childbirth at home. About 6 weeks ago, patient had achy, pleuritic left-sided chest pain going to her left arm and back with shortness of breath without cough or flulike symptoms. No fever, no chills. Patient called a local urgent care center to ask if she needed to go to the emergency room to get checked out for her symptoms. Patient claims she was told to just stay home for possible viral infection/pneumonia. Chest pain subsided after 2 weeks. Patient denies unusual stress at home. Patient unaware of any snoring symptoms when asleep. Admits to not being rested despite hours of sleep the night before. About 2 weeks ago, patient noted worsening shortness of breath especially on exertion along with fluid retention, bilateral leg swelling and abdominal distention. No actual chest pain. Worsening shortness of breath today. O2 sats noted after using [id number] home pulse ox was 80%. At the ER, patient given Lasix and Solu-Medrol for CHF and possible asthma attack, respectively. Patient currently breathing better. 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 Admission Exam Per Admitting Provider GENERAL: Comfortable, slightly anxious, obese, no respiratory distress, looks older than stated age SKIN: Pallor, warm HEENT: Pale palpebral conjunctivae, no ptosis, dry buccal mucosa, nasal cannula in place NECK : Supple, short neck, no tenderness CHEST : Decreased breath sounds, occasional expiratory wheezes, no tenderness HEART : RRR, no obvious murmurs ABDOMEN: Some distention, nontender EXTREMITIES : Bilateral LE swelling/tenderness, no other conspicuous deformities noted NEUROLOGIC : Coherent, no facial asymmetry, no other gross focality Principal Diagnosis Acute respiratory failure 2/2 possible underlying rheumatologic condition Pleural effusion Nephrotic syndrome Discharge Exam CONSTITUTIONAL: obese, vitals as above, generally ill-appearing and anxious on BIPAP EYES: pupils equal, round and reactive. normal conjunctivae, no scleral icterus ENT: external ear and nose normal, oropharynx clear, MMM, poor dentition RESPIRATORY: increased respiratory effort, crackles throughout lungs. No wheezes. CARDIOVASCULAR: tachy rate, S1 and 2 heard without murmurs, no peripheral edema GASTROINTESTINAL: soft, nontender, nondistended MUSCULOSKELETAL: strength 5/5 throughout, head is normocephalic and atraumatic SKIN: warm and dry NEUROLOGIC: No facial palsy, no dysarthria. CN 2-12 grossly intact, normal speech. No gross focal deficits. PSYCHIATRIC: alert cooperative , anxious Discharge Data Allergies Allergy/AdvReac Type Severity Reaction Status Date / Time mushroom Allergy Severe ANAPHYLAXIS Verified 04/24/20 15:29 onion Allergy Severe ANAPHYLAXIS Verified 04/24/20 15:29 tramadol Allergy Mild RASH AND Verified 04/24/20 15:29 ITCHING ketorolac Allergy Unknown RASH Verified 04/24/20 15:29 green peppers Allergy Severe ANAPHYLAXIS Uncoded 04/24/20 15:29 Plasencia Pepper Allergy Unknown ANAPHYLAXIS Uncoded 04/24/20 15:29 FROM GREEN PEPPER Consultations 04/24/20 18:40 ED Decision to Admit Stat 04/24/20 21:11 Consult Cardiology Routine 04/25/20 11:44 Consult Pulmonology Routine 04/25/20 11:55 Consult Pulmonology Routine 04/26/20 07:57 Consult Gastroenterology Routine 04/26/20 13:43 Consult Nephrology Routine 04/26/20 21:58 Consult Case Management - Discharge Planning Routine 04/26/20 22:13 Burn CD for patient Stat Ordered Studies 04/24/20 15:27 CT abd pelvis IV con only Stat 04/24/20 16:39 CT angio chest PE protocol Stat 04/26/20 12:51 US abdomen ltd ascites Routine 04/26/20 14:47 US point of care ultrasound Urgent Hospital Course (1) Acute hypoxemic respiratory failure: (2) Folate deficiency: (3) Iron deficiency anemia: (4) Pleural effusion on right: (5) Hepatic steatosis: (6) Dental caries: (7) PCOS (polycystic ovarian syndrome): (8) Chronic pain: (9) Smoker: 40-year-old female smoker with PCOS who is also on suboxone for chronic pain presented with two months of worsening shortness of breath weight gain and progressive dyspnea on exertion. On arrival to the ER she was afebrile with a heart rate in the 90s, blood pressure 116/58 and pulse ox was 99% on room air. She was not in respiratory distress however her oxygen saturation notably went down to 80% and she was placed on 2 L nasal cannula with improvement. An EKG revealed normal sinus rhythm with a QTC and 502. No evidence of ST elevation was present. She was given Solu-Medrol 125 mg IV. Work-up included a CT of the chest with contrast and a CT of the abdomen and pelvis. There was no evidence of pulmonary embolus, there were diffuse patchy groundglass opacities likely representing interstitial edema and concerning for a superimposed infectious/inflammatory pneumonitis. There was evidence of pulmonary arterial hypertension, there was a moderate sized right pleural effusion and a small left pleural effusion with associated atelectasis. No acute infectious or inflammatory moderate findings were seen in the abdomen or pelvis with marked hepatomegaly and evidence of severe hepatic steatosis. Mild splenomegaly was also noted. Mildly enlarged mediastinal lymph nodes were also present and may b e reactive reactive. She was admitted to the hospitalist service and placed on telemetry. Cardiology was consulted and diuretics were started initially for presumed heart failure. A 2D echocardiogram was performed and was normal with an ejection fraction of 55% and normal left and right ventricular systolic function. Pulmonology was consulted. She was suspected to have some mild degree of pulmonary hypertension likely secondary from obesity hypoventilation syndrome/obstructive sleep apnea in light of her symptoms and pulmonary artery dilation on CT of her chest. There was some improvement of her symptoms with diuresis. An autoimmune work-up was started to evaluate the possibility of lupus, Sjogren's, and other autoimmune conditions in light of her bilateral pleural effusions and bilateral infiltrates. Biological mother notably had lupus. Significant proteinuria was found and a 24 hr protein was started but not collected. Nephrology was consulted but didn't have a chance to see the patient prior to discharge. The patient's ESR was 76 and CRP was 2.86. Procalcitonin was 0.27. TSH was normal. Lipase was 81 she was found to have anemia with an initial H&H of 8.8/27 and an MCV of 100. White blood cell count on admission was 11. The following day white blood cell count was 14 and H/H dropped to 7.8/25 with an MCV of 102. Platelet count was 403. She simultaneously had an increase in the need for supplemental oxygen from 2 L nasal cannula to 4 L nasal cannula but reported feeling better and expressed the desire to go home. DAH was considered in the differential diagnosis. Liver function tests review revealed slightly elevated total bilirubin, INR of 1.5, and a low albumin. Hepatitis panel revealed a positive HCV antibody with a pending viral load. With her PCOS, she is a non-menstruating female with iron deficiency anemia and folate deficiency. She was started on supplementation for both. GI was consulted and recommended a liver biopsy as outpatient once further away from this acute illness. The patient underwent a thoracentesis on 04/26 in the afternoon. Approximately 1 L of fluid was removed. Gram stain revealed no organisms with culture pending at time of discharge. Per lights criteria the fluid was transudative. After the procedure the patient developed a cough and subsequent worsening asymmetric pulmonary edema and acute respirator y failure. She responded well to BiPAP and was given Solu-Medrol 125 IV and Lasix 40mg IV. She was transferred to the ICU and evaluated for the need for potential intubation by anesthesia. She was doing well on the BiPAP and out of concern for an impending rheumatologic emergency, she was transitioned to the ICU at [facility] in [place]. She was discharged in serious condition on continuous BIPAP. I updated her sawyer Collado by phone and answered all questions. Accepting physician is Dr. Ramírez in the ICU. Current Inpatient Medications Acetaminophen (Tylenol) 325 mg PO Q6H PRN PRN Reason: Mild Pain Stop: 05/24/20 21:10 Last Admin: 04/26/20 07:41 Dose: 325 mg Documented by: Aspirin (Ecotrin Ectab) 81 mg PO QAM ALLY Stop: 05/25/20 08:59 Last Admin: 04/26/20 07:43 Dose: 81 mg Documented by: Buprenorphine/Naloxone (Suboxone 8 Mg/2 Mg) 0.5 tab SL TID ALLY Stop: 05/24/20 21:59 Last Admin: 04/26/20 21:25 Dose: Not Given Documented by: Enoxaparin Sodium (Lovenox) 40 mg SQ QAM ALLY Stop: 05/25/20 08:59 Last Admin: 04/26/20 07:44 Dose: 40 mg Documented by: Ferrous Sulfate (Feosol) 325 mg PO TIDM ALLY Stop: 05/26/20 07:59 Last Admin: 04/26/20 17:04 Dose: 325 mg Documented by: Folic Acid (Folvite) 1 mg PO QAM [facility] Stop: 05/26/20 08:59 Last Admin: 04/26/20 07:42 Dose: 1 mg Documented by: Promethazine HCl 12.5 mg/ (Sodium Chloride) 50.5 mls @ 202 mls/hr IV Q6H PRN PRN Reason: Nausea And Vomiting Stop: 05/24/20 21:10 Furosemide 40 mg/ Syringe 4 mls @ 4 mls/min IV Q12H [facility] Stop: 05/26/20 05:59 Last Admin: 04/26/20 17:04 Dose: 4 mls/min Documented by: Lorazepam (Ativan) 0.5 mg in 1 mls @ 0.5 mls/min IV Q6H PRN PRN Reason: Anxiety/Agitation Stop: 05/26/20 12:43 Last Admin: 04/26/20 19:47 Dose: 0.5 mls/min Documented by: Dexmedetomidine HCl 200 mcg/ (Sodium Chloride) 50 mls @ 4.92 mls/hr IV .[id number] [facility]; Protocol Stop: 04/30/20 20:44 Last Admin: 04/26/20 21:01 Dose: 0.2 mcg/kg/hr, 4.9 mls/hr Documented by: Ipratropium Riley (Atrovent 0.02% 0.5mg/2.5ml) 0.5 mg INH Q4H PRN PRN Reason: Shortness Of Breath Or Wheezing Stop: 05/24/20 21:10 Levalbuterol HCl (Xopenex 1.25mg/0.5ml Neb) 1.25 mg INH Q4H PRN PRN Reason: Shortness Of Breath Or Wheezing Stop: 05/24/20 21:10 Menthol (Nice) 1 vu BUCCAL Q1H PRN PRN Reason: Sore Throat/cough Stop: 05/26/20 17:51 Last Admin: 04/26/20 18:26 Dose: 1 vu Documented by: Metoprolol Tartrate (Lopressor) 12.5 mg PO BID [facility] Stop: 05/25/20 08:59 Last Admin: 04/26/20 19:46 Dose: 12.5 mg Documented by: Miscellaneous (Remove Nicoderm Patch) 1 ea N/A DAILY@0859 [facility] Stop: 05/25/20 08:58 Last Admin: 04/26/20 07:44 Dose: 1 ea Documented by: Miscellaneous (Icu Protocol For Hyperglycemia) 1 ea N/A PRN PRN; Protocol PRN Reason: Hyperglycemia Protocol Stop: 04/28/20 21:56 Nicotine (Nicoderm Cq) 21 mg TD QAM [facility] Stop: 05/24/20 21:10 Last Admin: 04/26/20 07:44 Dose: 21 mg Documented by: Nitroglycerin (Nitrostat) 0.4 mg SL UD PRN PRN Reason: Chest Pain Stop: 05/24/20 21:10 Potassium Chloride (Klor-Con M20) 20 meq PO BID [facility] Stop: 05/25/20 08:59 Last Admin: 04/26/20 19:46 Dose: 20 meq Documented by: Total Time Total Time Spent Total Time Spent (In Minutes): 60 Total Time Includes: Examination of the Patient, Discharge Planning, Medication Reconciliation, Communication With Other Providers and Other (coordinating ICU transfer and transfer to acute [facility], gave family updates.) Discharge Plan Discharge Items Patient Disposition: Transfer Acute [facility] Reason For Visit: RESP FAILURE Discharge Diagnosis: Acute respiratory failure 2/2 possible underlying rheumatologic condition Pleural effusion Nephrotic syndrome Condition on Discharge: Serious Activity: Resume your previous activity Non-emergency contact: Primary Care Provider Call non-emergency contact if: you have any medication questions, your symptoms worsen, your pain is not controlled, your pain is worsening and you have a fever Follow-up/Referrals: PCP,NO [Primary Care Provider] - Diet: Regular Addtl Attending Provider Instructions: You are being transferred to [facility] in [place], [place] for further workup and treatment. Please follow-up with your primary care provider within one week of discharge. It was a pleasure taking care of you! Please call if you have any questions or problems. You can reach a [facility] hospitalist on duty at [facility] 24 hours a day by calling [phone]. Take care of yourself. Zulema Contreras, DO [facility] Pending Studies at Discharge: Yes Stand-Alone Forms: My [facility] Skilled Items Patient informed of condition?: Yes DNR: No Discharge Level of Care: Other Communicable Disease: No Discharge Prognosis: Deteriorating Lines: Peripheral IV Urinary Catheter: No Medications and DC Order Prescriptions: Continued albuterol sulfate 90 mcg/actuation Hfa Aerosol Inhaler 2 puff INHALATION Q4 PRN (Reason: Shortness Of Breath Or Wheezing) RF: 0 buprenorphine-naloxone 8-2 mg tablet, sublingual 1.5 tab SUBLINGUAL UD RF: 0 Discharge Orders: Discharge Order (Routine); Ordered 04/26/20 Ordered By: Zulema Contreras Admission Data Admit Date/Time: 04/24/20 20:14 Attending Provider: Zulema Contreras Admit Provider: Leopoldo Alonzo Primary Care Provider: PCP,NO Other Providers: Leopoldo Alonzo ; Brice Connelly Joseph A. ; Moy Mcdonough Jeffrey L. ; Daly Candelario ; Gil Copeland Elissa R. ; Shae Chapa Japheth E.
[2020-04-26] MEDS ORDERED: LORazepam 0.5 MG/1 ML VIAL IV STA (23:24)
[2020-04-29 00:36] LABS: ANCA Screen Negative (Negative); Alpha 1 Antitrypsin 273 mg/dL (83-199); Alpha 1 Globulin 0.5 g/dL (0.2-0.3); Alpha 2 Globulin 0.7 g/dL (0.5-0.9); Anti-Neutrophil Antibody NONE DETECTED (NONE DETECTED); Anti-SS-A <1.0 NEG AI (<1.0 NEG); Anti-SS-B <1.0 NEG AI (<1.0 NEG); Anti-dsDNA Recombinant <1 IU/mL; Beta-1-Globulin 0.5 g/dL (0.4-0.6); Beta-2-Globulin 0.6 g/dL (0.2-0.5); Ceruloplasmin 37 mg/dL (18-53); Gamma Globulin 1.8 g/dL (0.8-1.7); JO 1 Antibody <1.0 NEG AI (<1.0 NEG); Monoclonal Protein Band 1 DNR g/dL (NONE DETECTED); Monoclonal Protein Band 2 DNR g/dL (NONE DETECTED); Monoclonal Protein Band 3 DNR g/dL (NONE DETECTED); Proteinase-3 Ab <1.0 AI; RNP Antibody <1.0 NEG AI (<1.0 NEG); Rheumatoid Factor <14 IU/mL (<14); Sm Antibody <1.0 NEG AI (<1.0 NEG); Smooth Muscle Antibody NEGATIVE (NEGATIVE); Total Protein 7.1 g/dL (6.1-8.1)
[2020-05-01 02:49] LABS: Anti Nuclear Antibody Screen NEGATIVE (NEGATIVE); Anti-Centromere Ab <1.0 NEG AI (<1.0 NEG); Anti-SS-A <1.0 NEG AI (<1.0 NEG); Anti-SS-B <1.0 NEG AI (<1.0 NEG); Complement C3 187 mg/dL (83-193); DNA ds Crithidia NEGATIVE (NEGATIVE); RNP Antibody <1.0 NEG AI (<1.0 NEG); Scleroderma Anti Scl-70 Ab <1.0 NEG AI (<1.0 NEG); Sm Antibody <1.0 NEG AI (<1.0 NEG)
== END 2020-04-26 23:35 | disposition short-term general hospital (02) | DRG 189 ==
LOC: ED 14:09 → 2S 20:14 → SUATTDRO 20:14 → 2S 21:00 → 1E 04-26 20:37

== ENCOUNTER 2020-07-30 14:11 | Inpatient (IN) ==
--- NOTE | 2020-07-30 14:55 | Emergency Department Note ---
Impression & Plan SOB (shortness of breath) ED Provider Note INFORMANT: Patient ED PROVIDER(S): Ever Donahue MD CHIEF COMPLAINT: Shortness of breath PLAN: Disposition: Admitted Condition: Guarded MEDICAL DECISION MAKING: Patient presented with shortness of breath and several other complaints concerning for her history of CHF and anemia. The patient had an ECG performed which did not reveal any acute findings. There was poor R wave progression present. No ST elevation. Her chest x-ray did show some increased interstitial markings and mild cardiomegaly. The patient had no significant effusions like she did in the past. A CBC showed a leukocytosis and significant anemia. The patient's chemistry panel revealed significant electrolyte abnormalities. The patient had hypokalemia, hypomagnesemia, and hypocalcemia. The patient did receive IV potassium, IV magnesium, and IV calcium. She was also consented for packed red blood cell transfusion. This was initiated. Because of the patient's upper abdominal pain and her elevated LFTs, she underwent ultrasound imaging of the gallbladder. The patient did receive IV cefepime after blood cultures for her abnormal chest x-ray and leukocytosis. Her gallbladder ultrasound imaging is abnormal and radiology recommended nuclear medicine imaging. She did have IV Flagyl added. [facility] The patient was evaluated in the ER and admitted for further management due to her multiple medical conditions. Triage Nursing notes reviewed and agree them. Additional history obtained from EMS Prior medical records reviewed regarding the last admission and transfer to [facility] regarding the respiratory failure. Vital Signs: reviewed and remarkable for mildly low blood pressure Differential diagnosis: CHF, Reactive airway disease, pneumonia, pneumothorax, COPD, infections, cardiac ischemia, pulmonary embolism, musculoskeletal, gastrointestinal, as well as other pathologies. Diagnostics interpreted by me: ECG: Twelve-lead ECG reveals a normal sinus rhythm at 94 bpm. There is a poor R wave progression. Prolonged QT interval. There is no ST elevation or depression. Normal axis. Cardiac Monitoring: Cardiac monitoring ordered by me: The patient was placed on continuous cardiac monitoring and observed. It revealed a normal sinus rhythm at 88 beats per minute without ectopy or evidence of dysrhythmia. Imaging studies: Chest x-ray as noted above. Ultrasound imaging did show sludge and borderline wall thickening. I refer you to the EMR for further details. Consultation(s): [facility] hospitalist service, Jeff De La Vega PA-C and Dr. Sanchez HPI: The patient is a 40 year old female who presents to the Emergency Room with complaints of shortness of breath. This started over the last week and is worsening. The patient has a history of heart failure and is chronically on oxygen. She is currently undergoing the evaluation since her last admission. She had a pleural effusion. She has seen pulmonary but cardiology consultation is pending. The patient states that she has not had a significant weight gain that she did last time. She is taking her diuretic. She does note frequent s pasms in her arms and legs. She is not on a potassium supplement. She was previously anemic but not transfused. The patient has found no relieving factors. Current pain is rated as 0/10. Pt denies LOC, headache, fevers, chills, diaphoresis, visual changes, neck pain, chest pain, nausea, vomiting, abdominal pain, back pain, melena, hematochezia, urinary symptoms, numbness, focal weakness, lymphadenopathy, rash, or other complaints. ROS: See above HPI for pertinent positives & negatives. A total of 10 systems reviewed and were otherwise negative. PAST MEDICAL HISTORY:See Below, PCOS, anemia, heart failure PAST SURGICAL HISTORY:See Below, FAMILY HISTORY:See Below SOCIAL HISTORY:See Below, lives with family HOME MEDICATIONS:See Below ALLERGIES:See Below VITALS:See Below PHYSICAL EXAMINATION: GENERAL: Awake, alert, mildly dyspneic-appearing, in no distress HENT: Normocephalic, atraumatic. Oropharynx unremarkable. EYES: Normal conjunctiva. Sclera mildly-icteric. NECK: Inspection normal. Non-tender. Supple. No nuchal rigidity. FROM. No masses. RESPIRATORY: Clear to auscultation. No wheezes. No rales. Normal respiratory effort. CARDIAC: Normal rate. Normal rhythm. No murmurs. No rubs. Extremities warm and well perfused. Pulses equal. No JVD. GI: Soft, non-distended. Epigastric tenderness to palpation. No rebound or guarding. No masses. RECTAL: Deferred. MUSCULOSKELETAL: Atraumatic. Chest examination reveals no tenderness. The back is symmetrical on inspection without obvious abnormality. There is no CVA tenderness to palpation. No joint edema. LOWER EXTREMITIES: Calves are equal size bilaterally and non-tender. No edema. No discoloration. NEURO: Normal sensorium. No sensory or motor deficits noted. SKIN: No rash or jaundice noted. ED COURSE: Critical Care: I have personally spent greater than 40 minutes of critical care time in the direct management of this patient. This includes bedside care, interpretation of diagnostic studies, and testing, discussion with consultants, patient, and other required patient management activities. These minutes are in excess of a ll separately billable procedures. 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 Beliefs That Will Affect Care: None Current Living Situation: Spouse and Family Other Information That Helps Us Care for You: No Feels Safe at Home: Yes Safety Concerns: Feels Safe At This Time Assistive Devices: BiPap, Oxygen - at Night and Oxygen - Continuous Allergies Allergies Allergy/AdvReac Type Severity Reaction Status Date / Time mushroom Allergy Severe ANAPHYLAXIS Verified 07/30/20 14:38 onion Allergy Severe ANAPHYLAXIS Verified 07/30/20 14:38 tramadol Allergy Mild RASH AND Verified 07/30/20 14:38 ITCHING ketorolac Allergy Unknown RASH Verified 07/30/20 14:38 green peppers Allergy Severe ANAPHYLAXIS Uncoded 07/30/20 14:38 Plasencia Pepper Allergy Unknown ANAPHYLAXIS Uncoded 07/30/20 14:38 FROM GREEN PEPPER Home Meds Home Medications Medication Instructions Recorded Confirmed albuterol sulfate 2 puff INHALATION Q4 PRN 04/24/20 07/30/20 buprenorphine-naloxone 1.5 tab SUBLINGUAL UD 04/24/20 07/30/20 ferrous sulfate 325 mg PO DAILY 07/30/20 07/30/20 folic acid 1 mg PO DAILY 07/30/20 07/30/20 furosemide 40 mg PO DAILY 07/30/20 07/30/20 metoprolol succinate 25 mg PO DAILY 07/30/20 07/30/20 Results & Data (ED) Vital Signs Vital Signs - 24 hr 07/30/20 14:11 07/30/20 14:20 07/30/20 14:28 Temperature 37.3 C Temperature Source Oral Pulse Rate 99 H 99 H 97 H Pulse Rate [Apical] 99 H Pulse Rate from SpO2 Sensor 97 H 97 H Pulse Rhythm Pulse Rhythm [Apical] Regular Pulse Strength [Apical] Normal Respiratory Rate 19 24 24 Respiratory Effort / Characteristics Short of Breath Respiratory Depth Normal Respiratory Pattern Regular Blood Pressure 118/55 L 118/55 L Blood Pressure [Right Arm] 118/55 L Blood Pressure Mean 76 98 Blood Pressure Mean [Right Arm] 76 Blood Pressure Position Lying Blood Pressure Position [Right Arm] Lying Pulse Oximetry 100 100 100 Oxygen Delivery Method Nasal Cannula Nasal Cannula Nasal Cannula Oxygen Flow Rate 4 4 4 Sepsis Recent Fever Within 48 Hours No Sepsis New/Unexplained Change in Mental Status N/A Sepsis Action Taken by Nursing No Action Required 07/30/20 14:30 07/30/20 14:31 07/30/20 14:32 Temperature Temperature Source Pulse Rate 97 H 103 H 103 H Pulse Rate [Apical] Pulse Rate from SpO2 Sensor 104 H Pulse Rhythm Pulse Rhythm [Apical] Pulse Strength [Apical] Respiratory Rate 24 24 23 Respiratory Effort / Characteristics Respiratory Depth Respiratory Pattern Blood Pressure 108/96 Blood Pressure [Right Arm] Blood Pressure Mean 104 Blood Pressure Mean [Right Arm] Blood Pressure Position Blood Pressure Position [Right Arm] Pulse Oximetry 100 100 99 Oxygen Delivery Method Nasal Cannula Nasal Cannula Nasal Cannula Oxygen Flow Rate 4 4 4 Sepsis Recent Fever Within 48 Hours Sepsis New/Unexplained Change in Mental Status Sepsis Action Taken by Nursing 07/30/20 14:45 07/30/20 14:47 07/30/20 15:00 Temperature Temperature Source Pulse Rate 99 H 95 H Pulse Rate [Apical] 96 H Pulse Rate from SpO2 Sensor 95 H Pulse Rhythm Regular Pulse Rhythm [Apical] Regular Pulse Strength [Apical] Normal Respiratory Rate 22 19 24 Respiratory Effort / Characteristics Short of Breath Respiratory Depth Normal Respiratory Pattern Regular Blood Pressure 111/56 L Blood Pressure [Right Arm] 108/96 Blood Pressure Mean 98 Blood Pressure Mean [Right Arm] 100 Blood Pressure Position Blood Pressure Position [Right Arm] Lying Pulse Oximetry 100 100 99 Oxygen Delivery Method Nasal Cannula Nasal Cannula Nasal Cannula Oxygen Flow Rate 4 4 4 Sepsis Recent Fever Within 48 Hours Sepsis New/Unexplained Change in Mental Status Sepsis Action Taken by Nursing 07/30/20 15:30 07/30/20 16:00 07/30/20 16:30 Temperature Temperature Source Pulse Rate 95 H 94 H 94 H Pulse Rate [Apical] Pulse Rate from SpO2 Sensor 96 H 94 H 94 H Pulse Rhythm Pulse Rhythm [Apical] Pulse Strength [Apical] Respiratory Rate 29 H 19 19 Respiratory Effort / Characteristics Respiratory Depth Respiratory Pattern Blood Pressure 98/63 L 100/64 112/64 Blood Pressure [Right Arm] Blood Pressure Mean 69 75 80 Blood Pressure Mean [Right Arm] Blood Pressure Position Blood Pressure Position [Right Arm] Pulse Oximetry 98 100 100 Oxygen Delivery Method Nasal Cannula Nasal Cannula Nasal Cannula Oxygen Flow Rate 4 4 4 Sepsis Recent Fever Within 48 Hours Sepsis New/Unexplained Change in Mental Status Sepsis Action Taken by Nursing Laboratory Data Result diagrams: 07/30/20 14:43 07/30/20 14:43 Lab Results 07/30/20 07/30/20 07/30/20 Range/Units 14:43 14:43 14:43 WBC (4.8-10.8) K/uL RBC (4.2-5.4) M/uL Hgb (12.0-16.0) g/dL Hct (37-47) % MCV (80-100) fL MCH (25-34) pg MCHC (32-36) g/dL Plt Count (130-400) K/uL MPV (7.4-10.4) fL Immature Gran % (Auto) % Neut % (Auto) % Lymph % (Auto) % [place] % (Auto) % Eos % (Auto) % Baso % (Auto) % Neut # (Auto) (1.4-6.5) K/uL Lymph # (Auto) (1.2-3.4) K/uL [place] # (Auto) (0.11-0.59) K/uL Eos # (Auto) (0-0.5) K/uL Baso # (Auto) (0-0.2) K/uL Immature Gran # (Auto) (0.00-0.02) K/uL Anisocytosis Target Cells RBC Agglutinates PT (9.0-12.0) Seconds INR (0.9-1.1) APTT (21.0-31.0) Seconds PTT Ratio Sodium 136 (136-145) mmol/L Potassium 2.0 L* (3.5-5.1) mmol/L Chloride 91 L (98-107) mmol/L Carbon Dioxide 34 H (21-32) mmol/L Anion Gap 10.0 (3-11) BUN 4 L (7-18) mg/dl Creatinine 1.17 (0.6-1.2) mg/dl Est Cr Clr Drug Dosing 71.0 ml/min Est GFR ( Amer) 68.5 Est GFR (Non-Af Amer) 59.1 BUN/Creatinine Ratio 3.4 L (10-20) Glucose 92 (70-99) mg/dl Calcium 5.4 L* (8.5-10.1) mg/dl Magnesium 0.6 L* (1.8-2.4) mg/dl Total Bilirubin 6.7 H (0.2-1) mg/dl AST 98 H (15-37) U/L ALT 22 (12-78) U/L Alkaline Phosphatase 145 H (45-117) U/L Troponin I < 0.015 (0-0.045) ng/ml NT-Pro-B Natriuret Pep 641 H (0-450) pg/ml Total Protein 7.4 (6.4-8.2) gm/dl Albumin 2.1 L (3.4-5.0) gm/dl Globulin 5.3 H (2.5-4.0) gm/dl Albumin/Globulin Ratio 0.4 L (0.9-2) Lipase 64 L (73-393) U/L HCG, Qual Negative (Negative) Urine Color Urine Appearance (Clear) Urine pH (4.5-7.5) Ur Specific [place] (1.000-1.030) Urine Protein (Negative) Urine Glucose (UA) (Negative) Urine Ketones (Negative) Urine Blood (Negative) Urine Nitrite (Negative) Urine Bilirubin (Negative) Urine Urobilinogen (Negative) Ur Leukocyte Esterase (Negative) Urine WBC (Auto) (0-5) /hpf Urine RBC (Auto) (0-4) /hpf U Hyaline Cast (Auto) (0-5) /lpf U Epithel Cells (Auto) (0-5) /lpf Urine Bacteria (Auto) (Negative) COVID-19 Eval Order COVID-19 PCR (Negative) Blood Type A Positive Antibody Screen POSITIVE A Antibody Identification Anti-I Crossmatch See Detail 07/30/20 07/30/20 07/30/20 Range/Units 14:43 14:43 15:15 WBC 13.46 H (4.8-10.8) K/uL RBC 1.82 L (4.2-5.4) M/uL Hgb 6.4 L* (12.0-16.0) g/dL Hct 18.2 L* (37-47) % MCV 100.0 (80-100) fL MCH 35.2 H (25-34) pg MCHC 35.2 (32-36) g/dL Plt Count 232 (130-400) K/uL MPV 10.1 (7.4-10.4) fL Immature Gran % (Auto) 0.2 % Neut % (Auto) 82.1 % Lymph % (Auto) 9.4 % [place] % (Auto) 7.4 % Eos % (Auto) 0.7 % Baso % (Auto) 0.2 % Neut # (Auto) 11.04 H (1.4-6.5) K/uL Lymph # (Auto) 1.27 (1.2-3.4) K/uL [place] # (Auto) 1.00 H (0.11-0.59) K/uL Eos # (Auto) 0.09 (0-0.5) K/uL Baso # (Auto) 0.03 (0-0.2) K/uL Immature Gran # (Auto) 0.03 H (0.00-0.02) K/uL Anisocytosis Present Target Cells 2+ RBC Agglutinates 2+ PT 16.6 H (9.0-12.0) Seconds INR 1.6 H (0.9-1.1) APTT 31.9 H (21.0-31.0) Seconds PTT Ratio 1.1 Sodium (136-145) mmol/L Potassium (3.5-5.1) mmol/L Chloride (98-107) mmol/L Carbon Dioxide (21-32) mmol/L Anion Gap (3-11) BUN (7-18) mg/dl Creatinine (0.6-1.2) mg/dl Est Cr Clr Drug Dosing ml/min Est GFR ( Amer) Est GFR (Non-Af Amer) BUN/Creatinine Ratio (10-20) Glucose (70-99) mg/dl Calcium (8.5-10.1) mg/dl Magnesium (1.8-2.4) mg/dl Total Bilirubin (0.2-1) mg/dl AST (15-37) U/L ALT (12-78) U/L Alkaline Phosphatase (45-117) U/L Troponin I (0-0.045) ng/ml NT-Pro-B Natriuret Pep (0-450) pg/ml Total Protein (6.4-8.2) gm/dl Albumin (3.4-5.0) gm/dl Globulin (2.5-4.0) gm/dl Albumin/Globulin Ratio (0.9-2) Lipase (73-393) U/L HCG, Qual (Negative) Urine Color Urine Appearance (Clear) Urine pH (4.5-7.5) Ur Specific [place] (1.000-1.030) Urine Protein (Negative) Urine Glucose (UA) (Negative) Urine Ketones (Negative) Urine Blood (Negative) Urine Nitrite (Negative) Urine Bilirubin (Negative) Urine Urobilinogen (Negative) Ur Leukocyte Esterase (Negative) Urine WBC (Auto) (0-5) /hpf Urine RBC (Auto) (0-4) /hpf U Hyaline Cast (Auto) (0-5) /lpf U Epithel Cells (Auto) (0-5) /lpf Urine Bacteria (Auto) (Negative) COVID-19 Eval Order Covid19 Done at [facility] COVID-19 PCR (Negative) Blood Type Antibody Screen Antibody Identification Crossmatch 07/30/20 07/30/20 Range/Units 15:15 16:40 WBC (4.8-10.8) K/uL RBC (4.2-5.4) M/uL Hgb (12.0-16.0) g/dL Hct (37-47) % MCV (80-100) fL MCH (25-34) pg MCHC (32-36) g/dL Plt Count (130-400) K/uL MPV (7.4-10.4) fL Immature Gran % (Auto) % Neut % (Auto) % Lymph % (Auto) % [place] % (Auto) % Eos % (Auto) % Baso % (Auto) % Neut # (Auto) (1.4-6.5) K/uL Lymph # (Auto) (1.2-3.4) K/uL [place] # (Auto) (0.11-0.59) K/uL Eos # (Auto) (0-0.5) K/uL Baso # (Auto) (0-0.2) K/uL Immature Gran # (Auto) (0.00-0.02) K/uL Anisocytosis Target Cells RBC Agglutinates PT (9.0-12.0) Seconds INR (0.9-1.1) APTT (21.0-31.0) Seconds PTT Ratio Sodium (136-145) mmol/L Potassium (3.5-5.1) mmol/L Chloride (98-107) mmol/L Carbon Dioxide (21-32) mmol/L Anion Gap (3-11) BUN (7-18) mg/dl Creatinine (0.6-1.2) mg/dl Est Cr Clr Drug Dosing ml/min Est GFR ( Amer) Est GFR (Non-Af Amer) BUN/Creatinine Ratio (10-20) Glucose (70-99) mg/dl Calcium (8.5-10.1) mg/dl Magnesium (1.8-2.4) mg/dl Total Bilirubin (0.2-1) mg/dl AST (15-37) U/L ALT (12-78) U/L Alkaline Phosphatase (45-117) U/L Troponin I (0-0.045) ng/ml NT-Pro-B Natriuret Pep (0-450) pg/ml Total Protein (6.4-8.2) gm/dl Albumin (3.4-5.0) gm/dl Globulin (2.5-4.0) gm/dl Albumin/Globulin Ratio (0.9-2) Lipase (73-393) U/L HCG, Qual (Negative) Urine Color [place] Urine Appearance Cloudy A (Clear) Urine pH 5.5 (4.5-7.5) Ur Specific [place] 1.014 (1.000-1.030) Urine Protein 1+ H (Negative) Urine Glucose (UA) Negative (Negative) Urine Ketones Negative (Negative) Urine Blood 3+ H (Negative) Urine Nitrite Positive A (Negative) Urine Bilirubin 3+ H (Negative) Urine Urobilinogen Negative (Negative) Ur Leukocyte Esterase Trace H (Negative) Urine WBC (Auto) 10-30 H (0-5) /hpf Urine RBC (Auto) >30 H (0-4) /hpf U Hyaline Cast (Auto) 5-10 H (0-5) /lpf U Epithel Cells (Auto) >30 H (0-5) /lpf Urine Bacteria (Auto) 4+ H (Negative) COVID-19 Eval Order COVID-19 PCR NEGATIVE (Negative) Blood Type Antibody Screen Antibody Identification Crossmatch Administered Medications Doxycycline Hyclate 100 mg/ (Dextrose) 110 mls @ 50 mls/hr IV Q12H ALLY; Protocol Stop: 08/06/20 18:59 Last Admin: 07/30/20 19:25 Dose: 50 mls/hr Documented by: [id number] Discontinued Medications Calcium Gluconate 1,000 mg/ (Sodium Chloride) 60 mls @ 240 mls/hr IV NOW STA Stop: 07/30/20 16:00 Last Infusion: 07/30/20 16:35 Dose: 0 mls/hr Documented by: [id number] Admin: 07/30/20 16:20 Dose: 240 mls/hr Documented by: [id number] Potassium Chloride (K Miguel / Wtr) 10 meq in 100 mls @ 100 mls/hr IV Q1H ALLY Stop: 07/30/20 17:59 Last Infusion: 07/30/20 18:59 Dose: 0 mls/hr Documented by: [id number] Admin: 07/30/20 17:59 Dose: 100 mls/hr Documented by: [id number] Infusion: 07/30/20 17:20 Dose: 100 mls/hr Documented by: [id number] Admin: 07/30/20 16:20 Dose: 100 mls/hr Documented by: [id number] Magnesium Sulfate/Dextrose (Magnesium Sulfate / D5w) 1 gm in 100 mls @ 100 mls/hr IV Q1H ALLY Stop: 07/30/20 17:47 Last Infusion: 07/30/20 19:03 Dose: 0 mls/hr Documented by: [id number] Admin: 07/30/20 18:03 Dose: 100 mls/hr Documented by: [id number] Infusion: 07/30/20 17:20 Dose: 100 mls/hr Documented by: [id number] Admin: 07/30/20 16:20 Dose: 100 mls/hr Documented by: [id number] Cefepime HCl (Maxipime) 2,000 mg in 20 mls @ 5 mls/min IV NOW STA; Protocol Stop: 07/30/20 15:51 Last Admin: 07/30/20 16:17 Dose: 5 mls/min Documented by: [id number] Metronidazole (Flagyl) 500 mg in 100 mls @ 100 mls/hr IV NOW STA Stop: 07/30/20 18:40 Last Infusion: 07/30/20 18:59 Dose: 0 mls/hr Documented by: [id number] Admin: 07/30/20 17:59 Dose: 100 mls/hr Documented by: [id number] Phytonadione 5 mg/ Sodium (Chloride) 50.5 mls @ 101 mls/hr IV ONE ONE Stop: 07/30/20 19:22 Last Admin: 07/30/20 19:26 Dose: 101 mls/hr Documented by: [id number] Potassium Chloride (Potassium Chloride 20 Meq Tabcr) 40 meq PO NOW STA Stop: 07/30/20 17:22 Last Admin: 07/30/20 18:00 Dose: 40 meq Documented by: [id number] Discharge Plan Visit Data Chief Complaint: Shortness of Breath/Dyspnea Stated Complaint: sob ED Provider: Ever Donahue Discharge Problem: SOB (shortness of breath) Patient Disposition: Admitted As Inpatient Discharge Instructions Interventions: ED Discharge Assessment Last Done: 07/30/20 18:20
--- NOTE | 2020-07-30 15:02 | XRay Report ---
XR chest 1V portable HISTORY: 40 years-old Female Dyspnea acute shortness of breath COMPARISON: Chest radiograph 04/26/2020 TECHNIQUE: Portable upright AP view of the chest FINDINGS: Cardiac silhouette is enlarged. Mild right hemidiaphragmatic elevation. Moderate bilateral reticular opacities. No pneumothorax or large pleural effusion. Bones appear grossly intact. IMPRESSION: Bilateral reticular opacities suggest cardiomegaly or multifocal interstitial pneumonia. ACT 112: Negative or not required by law. The above report was generated using voice recognition software. It may contain grammatical, syntax o r spelling errors. Electronically signed by: Elkin Quan M.D. 07/30/2020 3:01 PM
[2020-07-30 15:08] LABS: INR 1.6 (0.9-1.1); Partial Thromboplastin Ratio 1.1; Partial Thromboplastin Time 31.9 Seconds (21.0-31.0); Prothrombin Time 16.6 Seconds (9.0-12.0)
[2020-07-30 15:19] LABS: Pregnancy Test, Serum Negative (Negative)
[2020-07-30 15:38] LABS: Alanine Aminotransferase 22 U/L (12-78); Albumin Globulin Ratio 0.4 (0.9-2); Albumin Level 2.1 gm/dl (3.4-5.0); Alkaline Phosphatase 145 U/L (45-117); Aspartate Aminotransferase 98 U/L (15-37); BUN Creatinine Ratio 3.4 (10-20); Bilirubin,Total 6.7 mg/dl (0.2-1); Blood Urea Nitrogen 4 mg/dl (7-18); Calcium 5.4 mg/dl (8.5-10.1); Carbon Dioxide 34 mmol/L (21-32); Chloride 91 mmol/L (98-107); Est GFR (African American) 68.5; Est GFR (Non-African American) 59.1; Globulin 5.3 gm/dl (2.5-4.0); Glucose 92 mg/dl (70-99); Magnesium 0.6 mg/dl (1.8-2.4); NT Pro B Type Natriuretic Pept 641 pg/ml (0-450); Sodium 136 mmol/L (136-145); Total Protein 7.4 gm/dl (6.4-8.2); Troponin I < 0.015 ng/ml (0-0.045)
[2020-07-30 15:42] LABS: Hematocrit (blood only) 18.2 % (37-47); Hemoglobin 6.4 g/dL (12.0-16.0); Mean Corpuscular Hemoglobin 35.2 pg (25-34); Mean Corpuscular Hgb Conc 35.2 g/dL (32-36); Mean Platelet Volume 10.1 fL (7.4-10.4); Platelet Count 232 K/uL (130-400); Red Blood Count 1.82 M/uL (4.2-5.4); White Blood Count 13.46 K/uL (4.8-10.8)
[2020-07-30] MEDS ORDERED: SODIUM CHLORIDE 0.9% 250 ML IV PRN (15:46)
[2020-07-30] MEDS ORDERED: CALCIUM GLUCONATE 10% 1,000 MG in SODIUM CHLORIDE 0.9% 50 ML IV STA ×2 (15:46→20:43)
[2020-07-30] MEDS ORDERED: CEFEPIME 2,000 MG/20 ML VIAL IV STA (15:48)
[2020-07-30 16:06] LABS: Anisocytosis Present; Basophils # (auto) 0.03 K/uL (0-0.2); Basophils % (auto) 0.2 %; Eosinophils # (auto) 0.09 K/uL (0-0.5); Eosinophils % (auto) 0.7 %; Immature Granulocytes # (auto) 0.03 K/uL (0.00-0.02); Immature Granulocytes % (auto) 0.2 %; Lymphocytes # (auto) 1.27 K/uL (1.2-3.4); Lymphocytes % (auto) 9.4 %; Monocytes % (auto) 7.4 %; Neutrophils # (auto) 11.04 K/uL (1.4-6.5); Neutrophils % (auto) 82.1 %; Target Cells 2+
[2020-07-30] MEDS: MAGNESIUM SULFATE / D5W 1 GM/100 ML BAG IV SCH ×2 (16:20→18:03)
[2020-07-30] MEDS: POTASSIUM CHLORIDE / WTR 10 MEQ/100 ML PLCT IV SCH ×2 (16:20→17:59)
[2020-07-30 16:23] LABS: Agglutinated RBC 2+
[2020-07-30 17:02] LABS: Appearance Urine Cloudy (Clear); Bacteria Urine Automated 4+ (Negative); Blood Urine 3+ (Negative); Color Urine Orange; Epithelial Cell Urine Auto >30 /lpf (0-5); Glucose Urine UA Negative (Negative); Ketones Urine Negative (Negative); Leukocyte Esterase Urine Trace (Negative); Nitrite Urine Positive (Negative); Protein Urine 1+ (Negative); RBC Urine Automated >30 /hpf (0-4); Specific Gravity Urine 1.014 (1.000-1.030); Urobilinogen Urine Negative (Negative); pH Urine 5.5 (4.5-7.5)
[2020-07-30] MEDS ORDERED: KETAMINE HCL INJ 50 MG/ML 10 ML VIAL IV ONE (17:02)
[2020-07-30 17:14] LABS: Bilirubin Urine 3+ (Negative)
[2020-07-30 17:15] LABS: Ictotest Urine Positive (Negative)
--- NOTE | 2020-07-30 17:17 | Ultrasound Report ---
US gallbladder HISTORY: 40 years-old Female upper abd pain, elevated lfts. Acute right upper quadrant abdominal luis e n COMPARISON: CT abdomen and pelvis 04/24/2020 TECHNIQUE: Multiple real-time sonographic images of the abdominal right upper quadrant were obtained assessing grayscale appearance and color flow FINDINGS: Study is limited secondary to body habitus. Hepatomegaly with hepatic steatosis. Pancreas is not diag nostically visualized, obscured by bowel gas. Distended sludge-filled gallbladder. No definite shadow ing cholelithiasis. Gallbladder measures up to 13.8 cm in length. Mild gallbladder wall thickening me asures 4 mm. Sonographic Parnell sign reported as positive. There is no pericholecystic edema/fluid. C ommon bile duct is dilated measuring 1 cm. No choledocholithiasis identified. Imaged right kidney is unremarkable without hydronephrosis. IMPRESSION: 1. Distended gallbladder with layering sludge, wall thickening and equivocal pericholecystic fluid. N o definite shadowing cholelithiasis. Findings could be correlated with nuclear medicine hepatobiliary scan to exclude acute cholecystitis. 2. Distended common bile duct. This finding should be correlated with laboratory analysis to exclude biliary obstruction. 3. Hepatomegaly with hepatic steatosis. ACT 112: Negative or not required by law. The above report was generated using voice recognition software. It may contain grammatical, syntax o r spelling errors. Electronically signed by: Elkin Quan M.D. 07/30/2020 5:16 PM
[2020-07-30] MEDS ORDERED: POTASSIUM CHLORIDE 20 MEQ TABCR PO STA ×2 (17:21→20:43)
[2020-07-30] MEDS ORDERED: metroNIDAZOLE 500 MG/100 ML BAG IV STA (17:41)
--- NOTE | 2020-07-30 18:49 | History & Physical Report ---
Date of Service July 30, 2020 Assessment & Plan (1) Acute hypoxemic respiratory failure: (2) SOB (shortness of breath): Recently started on supplemental oxygen, which she uses between 2.5 L to 4 L at home In the past 2 to 3 days, patient reported dyspnea on exertion, when checking her pulse ox, O2 sat were below 80%, however she says that she never went about 4 L of O2 Shortness of breath likely multifactorial Patient recently diagnosed with chronic heart failure, with preserved ejection fraction Current proBNP only mildly elevated, per patient weight is stable no increased edema, not likely main cause of dyspnea, will obtain echocardiogram and monitor on telemetry Previously history of pleural effusions, current chest x-ray negative for pleural effusions however there are bilateral diffuse reticular opacities, possible multifocal pneumonia Covid19 obtained in the ED negative, will obtain upper respiratory infection panel/bio fire Patient started on antibiotics in the emergency room, received dose of cefepime, will add doxycycline and will obtain MRSA swab Patient was also found quite anemic, with hemoglobin of 6.4 which certainly could contribute to her shortness of breath Patient has history of iron deficiency anemia, and was recently started on iron supplement, follow-up labs showed improved hemoglobin of about 9 Patient denies any bleeding, will obtain FOBT, will also obtain CT scan of her abdomen to rule out any bleeding Patient also presented with abdominal pain, and there is concern for possible cholecystitis, therefore infection/inflammation could be contributory to her presentation Blood cultures ordered in ED UA urine culture pending (3) Heart failure with preserved ejection fraction: -At home on metoprolol and Lasix -Patient states she takes both medications, and this has been working quite well for her -She reports daily weights, and her weight has not been changed recently -Optimal/dry weight seems to be about 196 pounds -She denies any recent lower extremity edema or abdominal edema -proBNP slightly elevated, chest x-ray abnormal possibly due to cardiomegaly possibly due pneumonia, currently no pleural effusions -For now we will hold Lasix, due to hypotension, and anemia, will further discuss diuretics with nephrology and cardiology -We will obtain echo, will follow daily weights and I's and O's closely (4) Hypokalemia: Potassium 2.0 in the ED Likely secondary to Lasix use and poor oral intake lately -Replace and monitor as needed, may need supplemental potassium on discharge (5) Hypomagnesemia: Magnesium 0.6 in the ED Likely secondary to Lasix use and poor oral intake lately Replace and monitor as needed, may need supplemental magnesium on discharge (6) Hypocalcemia: As above, possibly due to poor oral intake and diuretic use -Now presents with muscle cramping, received calcium gluconate in the ED -Continue to monitor and replace as needed (7) Proteinuria: Diagnosed with proteinuria, and was supposed to follow-up with nephrology as outpatient Currently has an appointment however has not been seen yet Given her profound electrolyte abnormalities, anemia, and known proteinuria, will discuss further work-up with our nephrology colleagues while inpt (8) Iron deficiency anemia: History of pernicious anemia Recently started on iron supplement Current hemoglobin 6.4 FOBT ordered, CT abdomen ordered for further rule out of acute bleed Transfusion of 1 unit of packed red blood cells ordered in ED, however reported that patient has antibodies which are delaying transfusion Continue to closely follow H&H, and vital signs (9) Hepatic steatosis: (10) Elevated INR: Possibly secondary to liver disease Imaging hepatic steatosis noted Last admission hep C antibodies positive Patient also presented with elevated liver enzymes as below GI consulted, vitamin K ordered (11) Elevated liver enzymes: Patient presents with elevated liver enzymes, and right upper quadrant/epigastric discomfort Abdominal ultrasound obtained, shows distended gallbladder with layering sludge, wall thickening and equivocal pericholecystic fluid. Distended common bile duct. Hepatomegaly with hepatic steatosis. Surgery and GI consulted for possible acute cholecystitis/possible obstruction in common bile duct Recommend MRCP now, possible ERCP Patient is now on cefepime and Flagyl will continue Lipase level ordered DVT ppx: SCDs Code: FULL History of Present Illness Chief Complaint: Shortness of breath Primary Care Provider: Andre Siegel MD Ms. Guzman is a 40-year-old female with recent diagnosis of chronic heart failure, with preserved ejection fraction, at that time she presented in the hospital with pleural effusions, edema and shortness of breath. Her hospital [facility] was very short and she was transferred emergently to [facility]. She was intubated during her flight to [facility]. At that time she was also found anemic, interestingly her hep C antibodies were positive, as well as she was found to have proteinuria. She was discharged from [facility] on Lasix, metoprolol, folic acid, iron supplement. Patient is also using Suboxone for several years. When she was discharged from [facility], she was discharged with supplemental oxygen, which she says that she uses between 2-1/2 L to 4 L. Occasionally she does not use o xygen, she says that when she is at rest sometimes "she does not need it". She did obtain pulse ox and frequently checks her oxygen saturations levels. She followed-up with her primary care doctor, as well as cardiology, and pulmonary medicine. It was also recommended that given her proteinuria she would follow-up with nephrology, the appointment is scheduled however she has not been seen yet. Pulmonary medicine recommended PFTs and sleep study. Per cardiology, she was supposed to continue her Lasix and metoprolol, chest x-ray and echocardiogram were obtained, pleural effusions were resolved. She now presents with increased shortness of breath for the past 2 to 3 days. She states that she weighs herself daily, and her optimal weight is about 196 pounds. She reports that when she was hospitalized last time, she was about 20 pounds heavier. She denies any recent increase in her weight or edema. She reports cramping in her extremities, which can be quite debilitating for her and it " takes her breath away". She also reports extreme weakness for past 2 to 3 days. In addition she reported right upper quadrant/epigastric pain and spasm that she first noticed yesterday, now she only reports mild discomfort in that area. She has very poor appetite, and says that she has not been able to eat much lately. She denies any nausea or vomiting. She also denies any bleeding, denies blood in the stool. In the ED she was found to have hemoglobin of 6.4, potassium 2.0, magnesium 0.06, INR 1.6, low calcium, elevated alk phos, T bili, ALT, COVID was also tested and was negative. Chest x-ray was obtained, no pleural effusions now, however there are diffuse bilateral reticular opacities. Abdominal ultrasound was obtained, showed hepatomegaly with hepatic steatosis, distended gallbladder with layering sludge, wall thickening and equivocal pericholecystic fluid. Distended common bile duct. Patient is currently lying in bed, in no acute distress, using supplemental oxygen. She is able to speak in full sentences. She is alert and oriented and answering questions appropriately. Allergies Allergy/AdvReac Type Severity Reaction Status Date / Time mushroom Allergy Severe ANAPHYLAXIS Verified 07/30/20 14:38 onion Allergy Severe ANAPHYLAXIS Verified 07/30/20 14:38 tramadol Allergy Mild RASH AND Verified 07/30/20 14:38 ITCHING ketorolac Allergy Unknown RASH Verified 07/30/20 14:38 green peppers Allergy Severe ANAPHYLAXIS Uncoded 07/30/20 14:38 Plasencia Pepper Allergy Unknown ANAPHYLAXIS Uncoded 07/30/20 14:38 FROM GREEN PEPPER Home Medications Home Medications Medication Instructions Recorded Confirmed Type albuterol sulfate 2 puff INHALATION Q4 PRN 04/24/20 07/30/20 History buprenorphine-naloxone 1.5 tab SUBLINGUAL UD 04/24/20 07/30/20 History ferrous sulfate 325 mg PO DAILY 07/30/20 07/30/20 History folic acid 1 mg PO DAILY 07/30/20 07/30/20 History furosemide 40 mg PO DAILY 07/30/20 07/30/20 History metoprolol succinate 25 mg PO DAILY 07/30/20 07/30/20 History Past Med/Surg History Medical History Hepatomegaly Pleural effusion on left Pleural effusion on right Pulmonary edema Transaminitis Family History Mother Lupus (systemic lupus erythematosus) Social History Smoking Status: Current every day smoker Tobacco Type: Cigarettes Cigarettes Per Day: 10; Do You Dip or Chew Tobacco: No; Hx Alcohol Use: Yes Alcohol type: hard liquor Hx Substance Use: No Preferred Language: [place] Communication Ability: Effective 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 Required: No Beliefs That Will Affect Care: None Current Living Situation: Spouse and Family Other Information That Helps Us Care for You: No Feels Safe at Home: Yes Safety Concerns: Feels Safe At This Time Assistive Devices: BiPap, Oxygen - at Night and Oxygen - Continuous Review of Systems Review of Systems: All systems reviewed & are unremarkable except as noted in HPI & below Constitutional: no fever and no chills Eyes: no problem reported Ear, Nose, Mouth, Throat: no problem reported Respiratory: + dyspnea on exertion Cardiovascular: + palpitations; no chest pain Gastrointestinal: + abdominal pain (upper quadrant, right/epigastric) Genitourinary: no problem reported Musculoskeletal: cramps Integumentary: no problem reported Neurologic: no problem reported Psychiatric: no problem reported Endocrine: no problem reported Hematologic / Lymphatic: no problem reported Allergy / Immunological: no problem reported Physical Exam Physical Exam: Middle-aged female lying in bed, in no acute distress, using supplemental oxygen, 4 L Constitutional: WD/WN, vitals as above no acute distress Eyes: PERRL, conjunctivae normal, anicteric sclerae EOM intact bilaterally ENMT: external ear and nose normal, oropharynx normal Mouth: + dentition abnormality (Poor dentition) Sclera icteric Neck: trachea midline, no thyromegaly normal visual inspection Respiratory: normal respiratory effort; does not use accessory muscles Auscultation: + rhonchi (Mild diffuse); no crackles and no wheezes Cardiovascular: RRR, no murmur, no edema Chest (Breasts): Chest: normal inspection of chest Gastrointestinal (Abdomen): Inspection/Auscultation: + abdomen distended and normal bowel sounds Percussion/Palpation: + abdomen tender (Right upper quadrant, epigastric) and abdomen soft; no guarding and abdomen not rigid Musculoskeletal: Head/Neck/Chest: normocephalic and head atraumatic Extremities: extremities normal to inspection Skin: no rashes, warm and dry Neurologic: PERRL, EOMI, accommodation nl, no face palsy, no dysarthria moves all extremities Psychiatric: A+Ox3, euthymic affect Results & Data Results & Data ([facility]) Vital Signs (Past 12 Hours) Vital Signs Temp Pulse Pulse Resp BP BP Pulse Ox 07/30/20 16:30 94 H 19 112/64 100 07/30/20 16:00 94 H 19 100/64 100 07/30/20 15:30 95 H 29 H 98/63 L 98 07/30/20 15:00 95 H 24 111/56 L 99 07/30/20 14:47 99 H 19 100 07/30/20 14:45 96 H 22 108/96 100 07/30/20 14:32 103 H 23 99 07/30/20 14:31 103 H 24 108/96 100 07/30/20 14:30 97 H 24 100 07/30/20 14:28 97 H 24 100 07/30/20 14:20 99 H 24 118/55 L 100 07/30/20 14:11 37.3 C 99 H 99 H 19 118/55 L 118/55 L 100 Laboratory Results 07/30/20 07/30/20 07/30/20 Range/Units 16:40 15:15 15:15 WBC (4.8-10.8) K/uL RBC (4.2-5.4) M/uL Hgb (12.0-16.0) g/dL Hct (37-47) % MCV (80-100) fL MCH (25-34) pg MCHC (32-36) g/dL Plt Count (130-400) K/uL MPV (7.4-10.4) fL Immature Gran % (Auto) % Neut % (Auto) % Lymph % (Auto) % [place] % (Auto) % Eos % (Auto) % Baso % (Auto) % Neut # (Auto) (1.4-6.5) K/uL Lymph # (Auto) (1.2-3.4) K/uL [place] # (Auto) (0.11-0.59) K/uL Eos # (Auto) (0-0.5) K/uL Baso # (Auto) (0-0.2) K/uL Immature Gran # (Auto) (0.00-0.02) K/uL Anisocytosis Target Cells RBC Agglutinates PT (9.0-12.0) Seconds INR (0.9-1.1) APTT (21.0-31.0) Seconds PTT Ratio Sodium (136-145) mmol/L Potassium (3.5-5.1) mmol/L Chloride (98-107) mmol/L Carbon Dioxide (21-32) mmol/L Anion Gap (3-11) BUN (7-18) mg/dl Creatinine (0.6-1.2) mg/dl Est Cr Clr Drug Dosing ml/min Est GFR ( Amer) Est GFR (Non-Af Amer) BUN/Creatinine Ratio (10-20) Glucose (70-99) mg/dl Calcium (8.5-10.1) mg/dl Magnesium (1.8-2.4) mg/dl Total Bilirubin (0.2-1) mg/dl AST (15-37) U/L ALT (12-78) U/L Alkaline Phosphatase (45-117) U/L Troponin I (0-0.045) ng/ml NT-Pro-B Natriuret Pep (0-450) pg/ml Total Protein (6.4-8.2) gm/dl Albumin (3.4-5.0) gm/dl Globulin (2.5-4.0) gm/dl Albumin/Globulin Ratio (0.9-2) HCG, Qual (Negative) Urine Color [place] Urine Appearance Cloudy A (Clear) Urine pH 5.5 (4.5-7.5) Ur Specific [place] 1.014 (1.000-1.030) Urine Protein 1+ H (Negative) Urine Glucose (UA) Negative (Negative) Urine Ketones Negative (Negative) Urine Blood 3+ H (Negative) Urine Nitrite Positive A (Negative) Urine Bilirubin 3+ H (Negative) Urine Urobilinogen Negative (Negative) Ur Leukocyte Esterase Trace H (Negative) Urine WBC (Auto) 10-30 H (0-5) /hpf Urine RBC (Auto) >30 H (0-4) /hpf U Hyaline Cast (Auto) 5-10 H (0-5) /lpf U Epithel Cells (Auto) >30 H (0-5) /lpf Urine Bacteria (Auto) 4+ H (Negative) COVID-19 Eval Order Covid19 Done at [facility] COVID-19 PCR NEGATIVE (Negative) Blood Type Antibody Screen 07/30/20 07/30/20 07/30/20 Range/Units 14:43 14:43 14:43 WBC 13.46 H (4.8-10.8) K/uL RBC 1.82 L (4.2-5.4) M/uL Hgb 6.4 L* (12.0-16.0) g/dL Hct 18.2 L* (37-47) % MCV 100.0 (80-100) fL MCH 35.2 H (25-34) pg MCHC 35.2 (32-36) g/dL Plt Count 232 (130-400) K/uL MPV 10.1 (7.4-10.4) fL Immature Gran % (Auto) 0.2 % Neut % (Auto) 82.1 % Lymph % (Auto) 9.4 % [place] % (Auto) 7.4 % Eos % (Auto) 0.7 % Baso % (Auto) 0.2 % Neut # (Auto) 11.04 H (1.4-6.5) K/uL Lymph # (Auto) 1.27 (1.2-3.4) K/uL [place] # (Auto) 1.00 H (0.11-0.59) K/uL Eos # (Auto) 0.09 (0-0.5) K/uL Baso # (Auto) 0.03 (0-0.2) K/uL Immature Gran # (Auto) 0.03 H (0.00-0.02) K/uL Anisocytosis Present Target Cells 2+ RBC Agglutinates 2+ PT 16.6 H (9.0-12.0) Seconds INR 1.6 H (0.9-1.1) APTT 31.9 H (21.0-31.0) Seconds PTT Ratio 1.1 Sodium (136-145) mmol/L Potassium (3.5-5.1) mmol/L Chloride (98-107) mmol/L Carbon Dioxide (21-32) mmol/L Anion Gap (3-11) BUN (7-18) mg/dl Creatinine (0.6-1.2) mg/dl Est Cr Clr Drug Dosing ml/min Est GFR ( Amer) Est GFR (Non-Af Amer) BUN/Creatinine Ratio (10-20) Glucose (70-99) mg/dl Calcium (8.5-10.1) mg/dl Magnesium (1.8-2.4) mg/dl Total Bilirubin (0.2-1) mg/dl AST (15-37) U/L ALT (12-78) U/L Alkaline Phosphatase (45-117) U/L Troponin I (0-0.045) ng/ml NT-Pro-B Natriuret Pep (0-450) pg/ml Total Protein (6.4-8.2) gm/dl Albumin (3.4-5.0) gm/dl Globulin (2.5-4.0) gm/dl Albumin/Globulin Ratio (0.9-2) HCG, Qual Negative (Negative) Urine Color Urine Appearance (Clear) Urine pH (4.5-7.5) Ur Specific [place] (1.000-1.030) Urine Protein (Negative) Urine Glucose (UA) (Negative) Urine Ketones (Negative) Urine Blood (Negative) Urine Nitrite (Negative) Urine Bilirubin (Negative) Urine Urobilinogen (Negative) Ur Leukocyte Esterase (Negative) Urine WBC (Auto) (0-5) /hpf Urine RBC (Auto) (0-4) /hpf U Hyaline Cast (Auto) (0-5) /lpf U Epithel Cells (Auto) (0-5) /lpf Urine Bacteria (Auto) (Negative) COVID-19 Eval Order COVID-19 PCR (Negative) Blood Type Antibody Screen 07/30/20 07/30/20 Range/Units 14:43 14:43 WBC (4.8-10.8) K/uL RBC (4.2-5.4) M/uL Hgb (12.0-16.0) g/dL Hct (37-47) % MCV (80-100) fL MCH (25-34) pg MCHC (32-36) g/dL Plt Count (130-400) K/uL MPV (7.4-10.4) fL Immature Gran % (Auto) % Neut % (Auto) % Lymph % (Auto) % [place] % (Auto) % Eos % (Auto) % Baso % (Auto) % Neut # (Auto) (1.4-6.5) K/uL Lymph # (Auto) (1.2-3.4) K/uL [place] # (Auto) (0.11-0.59) K/uL Eos # (Auto) (0-0.5) K/uL Baso # (Auto) (0-0.2) K/uL Immature Gran # (Auto) (0.00-0.02) K/uL Anisocytosis Target Cells RBC Agglutinates PT (9.0-12.0) Seconds INR (0.9-1.1) APTT (21.0-31.0) Seconds PTT Ratio Sodium 136 (136-145) mmol/L Potassium 2.0 L* (3.5-5.1) mmol/L Chloride 91 L (98-107) mmol/L Carbon Dioxide 34 H (21-32) mmol/L Anion Gap 10.0 (3-11) BUN 4 L (7-18) mg/dl Creatinine 1.17 (0.6-1.2) mg/dl Est Cr Clr Drug Dosing 71.0 ml/min Est GFR ( Amer) 68.5 Est GFR (Non-Af Amer) 59.1 BUN/Creatinine Ratio 3.4 L (10-20) Glucose 92 (70-99) mg/dl Calcium 5.4 L* (8.5-10.1) mg/dl Magnesium 0.6 L* (1.8-2.4) mg/dl Total Bilirubin 6.7 H (0.2-1) mg/dl AST 98 H (15-37) U/L ALT 22 (12-78) U/L Alkaline Phosphatase 145 H (45-117) U/L Troponin I < 0.015 (0-0.045) ng/ml NT-Pro-B Natriuret Pep 641 H (0-450) pg/ml Total Protein 7.4 (6.4-8.2) gm/dl Albumin 2.1 L (3.4-5.0) gm/dl Globulin 5.3 H (2.5-4.0) gm/dl Albumin/Globulin Ratio 0.4 L (0.9-2) HCG, Qual (Negative) Urine Color Urine Appearance (Clear) Urine pH (4.5-7.5) Ur Specific [place] (1.000-1.030) Urine Protein (Negative) Urine Glucose (UA) (Negative) Urine Ketones (Negative) Urine Blood (Negative) Urine Nitrite (Negative) Urine Bilirubin (Negative) Urine Urobilinogen (Negative) Ur Leukocyte Esterase (Negative) Urine WBC (Auto) (0-5) /hpf Urine RBC (Auto) (0-4) /hpf U Hyaline Cast (Auto) (0-5) /lpf U Epithel Cells (Auto) (0-5) /lpf Urine Bacteria (Auto) (Negative) COVID-19 Eval Order COVID-19 PCR (Negative) Blood Type A Positive Antibody Screen Pending Diagnostic Findings CXR 07/30/2020 FINDINGS: Cardiac silhouette is enlarged. Mild right hemidiaphragmatic elevation. Moderate bilateral reticular opacities. No pneumothorax or large pleural effusion. Bones appear grossly intact. IMPRESSION: Bilateral reticular opacities suggest cardiomegaly or multifocal interstitial pneumonia. Abdominal ultrasound 07/30/2020 IMPRESSION: 1. Distended gallbladder with layering sludge, wall thickening and equivocal pericholecystic fluid. No definite shadowing cholelithiasis. Findings could be correlated with nuclear medicine hepatobiliary scan to exclude acute cholecystitis. 2. Distended common bile duct. This finding should be correlated with laboratory analysis to exclude biliary obstruction. 3. Hepatomegaly with hepatic steatosis. Code Status & VTE Plan VTE Prophylaxis Plan VTE Prophylaxis will be ordered: Yes
[2020-07-30] MEDS ORDERED: PHYTONADIONE 5 MG in SODIUM CHLORIDE 0.9% 50 ML IV ONE (18:53)
[2020-07-30] MEDS ORDERED: ONDANSETRON INJ 2 MG/ML 2 ML VIAL IV PRN (18:53)
[2020-07-30 19:11] LABS: Lipase 64 U/L (73-393)
--- NOTE | 2020-07-30 19:12 | Nephrology Progress Note ---
Date of Service July 30, 2020 Assessment & Plan (1) Hypomagnesemia: (2) Hypocalcemia: (3) Hypokalemia: Admission and Anticipated Discharge Date Admission Date: July 30, 2020 Results & Data ([facility]) Vital Signs (Past 12 Hours) Vital Signs Temp Pulse Pulse Resp BP BP Pulse Ox 07/30/20 18:47 37.0 C 98 H 20 104/63 95 07/30/20 18:20 37.3 C 94 H 19 112/64 100 07/30/20 16:30 94 H 19 112/64 100 07/30/20 16:00 94 H 19 100/64 100 07/30/20 15:30 95 H 29 H 98/63 L 98 07/30/20 15:00 95 H 24 111/56 L 99 07/30/20 14:47 99 H 19 100 07/30/20 14:45 96 H 22 108/96 100 07/30/20 14:32 103 H 23 99 07/30/20 14:31 103 H 24 108/96 100 07/30/20 14:30 97 H 24 100 07/30/20 14:28 97 H 24 100 07/30/20 14:20 99 H 24 118/55 L 100 07/30/20 14:11 37.3 C 99 H 99 H 19 118/55 L 118/55 L 100 Laboratory Results 07/30/20 14:43 07/30/20 14:43
[2020-07-30] MEDS: DOXYCYCLINE HYCLATE 100 MG in DEXTROSE 5% 100 ML IV SCH (19:25)
[2020-07-30 19:59] LABS: Adenovirus PCR Not Detected (NotDetected); Bordetella parapertussis PCR Not Detected (NotDetected); Bordetella pertussis PCR Not Detected (NotDetected); Chlamydia pneumoniae PCR Not Detected (NotDetected); Coronavirus 229E PCR Not Detected (NotDetected); Coronavirus CoV-2 (COVID19)PCR Not Detected (NotDetected); Coronavirus HKU1 PCR Not Detected (NotDetected); Coronavirus NL63 PCR Not Detected (NotDetected); Coronavirus OC43PCR Not Detected (NotDetected); Human Metapneumovirus PCR Not Detected (NotDetected); Influenza A PCR Not Detected (NotDetected); Influenza B PCR Not Detected (NotDetected); Mycoplasma pneumoniae PCR Not Detected (NotDetected); Parainfluenza Virus 1 PCR Not Detected (NotDetected); Parainfluenza Virus 2 PCR Not Detected (NotDetected); Parainfluenza Virus 3 PCR Not Detected (NotDetected); Parainfluenza Virus 4 PCR Not Detected (NotDetected); Respiratory Syncytial VirusPCR Not Detected (NotDetected); Rhinovirus/Enterovirus PCR Not Detected (NotDetected)
[2020-07-30 20:02] LABS: Hematocrit (blood only) 18.3 % (37-47); Hemoglobin 6.5 g/dL (12.0-16.0)
[2020-07-30] MEDS ORDERED: LORazepam 0.5 MG/1 ML VIAL IV ONE (20:10)
[2020-07-30] MEDS ORDERED: DiphenhydrAMINE HCL 50 MG/ML VIAL IV ONE (20:11)
[2020-07-30 20:26] LABS: Albumin Globulin Ratio 0.4 (0.9-2); BUN Creatinine Ratio 4.2 (10-20); Bilirubin,Total 7.1 mg/dl (0.2-1); Calcium 5.3 mg/dl (8.5-10.1); Creatinine Clr Calc Pharmacy 73.5 ml/min; Est GFR (African American) 71.4; Est GFR (Non-African American) 61.6; Globulin 5.1 gm/dl (2.5-4.0); Potassium 2.1 mmol/L (3.5-5.1); Total Protein 7.1 gm/dl (6.4-8.2)
[2020-07-30 20:58] LABS: Magnesium 1.3 mg/dl (1.8-2.4)
[2020-07-30] MEDS ORDERED: MAGNESIUM SULFATE / D5W 1 GM/100 ML BAG IV ONE (22:00)
[2020-07-30] MEDS ORDERED: DiphenhydrAMINE HCL 50 MG/ML VIAL ONE (23:01)
[2020-07-31 03:21] LABS: BUN Creatinine Ratio 4.5 (10-20); Calcium 5.3 mg/dl (8.5-10.1); Creatinine Clr Calc Pharmacy 82.3 ml/min; Est GFR (African American) 81.8; Est GFR (Non-African American) 70.6; Hematocrit (blood only) 19.2 % (37-47); Hemoglobin 6.8 g/dL (12.0-16.0); Mean Corpuscular Hemoglobin 36.2 pg (25-34); Mean Corpuscular Hgb Conc 35.4 g/dL (32-36); Mean Corpuscular Volume 102.1 fL (80-100); Mean Platelet Volume 10.6 fL (7.4-10.4); Platelet Count 213 K/uL (130-400); Potassium 2.3 mmol/L (3.5-5.1); RDW Coefficient of Variation 24.6 % (11.5-14.5); RDW Standard Deviation 78.1 fL (36.4-46.3); Red Blood Count 1.88 M/uL (4.2-5.4)
[2020-07-31 03:22] LABS: Anisocytosis Present; Basophils # (auto) 0.03 K/uL (0-0.2); Basophils % (auto) 0.2 %; Eosinophils # (auto) 0.12 K/uL (0-0.5); Immature Granulocytes # (auto) 0.04 K/uL (0.00-0.02); Immature Granulocytes % (auto) 0.3 %; Lymphocytes % (auto) 11.4 %; Monocytes # (auto) 0.81 K/uL (0.11-0.59); Monocytes % (auto) 6.6 %; Neutrophils % (auto) 80.5 %; Target Cells 1+
[2020-07-31] MEDS ORDERED: SODIUM CHLORIDE 0.9% 250 ML IV PRN (03:25)
[2020-07-31] MEDS ORDERED: POTASSIUM CHLORIDE PWD 20 MEQ PACK PO STA (03:26)
[2020-07-31 03:59] LABS: Magnesium 1.2 mg/dl (1.8-2.4)
[2020-07-31] MEDS: POTASSIUM CHLORIDE / WTR 10 MEQ/100 ML PLCT IV SCH ×14 (04:33→21:20)
[2020-07-31] MEDS ORDERED: POTASSIUM CHLORIDE PWD 20 MEQ PACK PO ONE (05:30)
[2020-07-31] MEDS: DOXYCYCLINE HYCLATE 100 MG in DEXTROSE 5% 100 ML IV SCH ×2 (06:29→18:39)
[2020-07-31] MEDS: FOLIC ACID 1 MG TAB PO SCH (07:35)
[2020-07-31] MEDS: FERROUS SULFATE 325 MG TAB PO SCH (07:35)
--- NOTE | 2020-07-31 08:02 | Gastrointestinal Consultation ---
Date of Consultation July 31, 2020 Assessment & Plan (1) Elevated liver enzymes: Patient presenting with shortness of breath thought to be related to congestive heart failure. GI consulted for evaluation of her elevated liver enzymes. Based on the available information I wonder if she may have congestive hepatopathy as opposed to an obstructive process. The patient's hypokalemia and hypocalcemia endoscopic intervention is presently not in her best interest. I would recommend her electrolytes be maximized by the primary service. Given the severity of her disease it may be beneficial to refer her to a tertiary center for transjugular liver biopsy to determine if her liver disease is related to congestive heart failure. Recommendations Await MRI results Continue with efforts at replacement of potassium and calcium Consider referral to a tertiary center as patient may benefit from a transjugular liver biopsy which is not available locally Hepatic function panel (fractionate bilirubin) Screen for immunity to HAV / HBV History of Present Illness Reason for Consultation: Jaundice Requesting Physician: Dr. Sanchez Attending Physician: Demetris Sanchez MD History of Present Illness The patient is a 40-year-old female who presented to the emergency room yesterday afternoon for evaluation of rest of shortness of breath and abdominal fullness. The patient has a history of severe right-sided congestive heart failure and was previously seen by our service in April during a prior admission. During that evaluation she was found to have elevated liver enzymes had been so evaluated for ascites. During the admission it appears that our service had recommended that she be referred to a tertiary center for a transjugular liver biopsy as an outpatient. The patient does not recall that this procedure was ever performed. She was evaluated for other causes of liver disease to include autoimmune liver disease and viral liver diseases which were negative. The patient was recently started on home oxygen therapy and does not recall any recent changes to medicines. Allergies Allergy/AdvReac Type Severity Reaction Status Date / Time mushroom Allergy Severe ANAPHYLAXIS Verified 07/30/20 14:38 onion Allergy Severe ANAPHYLAXIS Verified 07/30/20 14:38 tramadol Allergy Mild RASH AND Verified 07/30/20 14:38 ITCHING ketorolac Allergy Unknown RASH Verified 07/30/20 14:38 green peppers Allergy Severe ANAPHYLAXIS Uncoded 07/30/20 14:38 Plasencia Pepper Allergy Unknown ANAPHYLAXIS Uncoded 07/30/20 14:38 FROM GREEN PEPPER Home Medications Home Medications Medication Instructions Recorded Confirmed Type albuterol sulfate 2 puff INHALATION Q4 PRN 04/24/20 07/30/20 History buprenorphine-naloxone 1.5 tab SUBLINGUAL UD 04/24/20 07/30/20 History ferrous sulfate 325 mg PO DAILY 07/30/20 07/30/20 History folic acid 1 mg PO DAILY 07/30/20 07/30/20 History furosemide 40 mg PO DAILY 07/30/20 07/30/20 History metoprolol succinate 25 mg PO DAILY 07/30/20 07/30/20 History Patient History Medical History (Updated 07/30/20 @ 21:45 by Demetris Sanchez MD) Heart failure with preserved ejection fraction Hepatomegaly Pleural effusion on left Pleural effusion on right Proteinuria Pulmonary edema Transaminitis Family History Mother Lupus (systemic lupus erythematosus) Social History Smoking Status: Current every day smoker Tobacco Type: Cigarettes Cigarettes Per Day: 10; Do You Dip or Chew Tobacco: No; Hx Alcohol Use: Yes Alcohol type: hard liquor Hx Substance Use: No Preferred Language: Italian Communication Ability: Effective Pad Tufter Required: No Beliefs That Will Affect Care: None Current Living Situation: Spouse and Family Other Information That Helps Us Care for You: No Feels Safe at Home: Yes Safety Concerns: Feels Safe At This Time Assistive Devices: Oxygen - Continuous Review of Systems Constitutional: no fever, no chills, no sweats, no body aches, no malaise and no weight loss Eyes: Scleral icterus Ear, Nose, Mouth, Throat: no ear trauma Respiratory: + dyspnea and + snoring; no cough and no change in sputum Cardiovascular: + dyspnea at rest; no chest pain and no chest pain with activity Gastrointestinal: no abdominal pain and no change in stools Genitourinary: no urinary frequency Musculoskeletal: no radicular pain Neurologic: no falls Psychiatric: no hopelessness Endocrine: + fatigue; no cold intolerance Hematologic / Lymphatic: no easy bleeding Physical Exam Constitutional: no acute distress Eyes: + scleral abnormality Scleral icterus noted Neck: trachea midline, no thyromegaly No JVD noted today Respiratory: + labored breathing; does not use accessory muscles and no cough Cardiovascular: Heart Sounds: + murmur Gastrointestinal (Abdomen): Inspection/Auscultation: + abdomen distended and + abdominal edema Percussion/Palpation: abdomen soft; abdomen nontender and no guarding Skin: + jaundice; no ulcers Neurologic: no focal motor deficits Results & Data ([facility]) Vital Signs (Past 12 Hours) Vital Signs Temp Pulse Pulse Resp BP BP Pulse Ox 07/31/20 07:33 37.1 C 96 H 18 110/70 97 07/31/20 06:30 37.2 C 90 20 100/66 94 07/31/20 05:30 36.9 C 96 H 20 104/66 97 07/31/20 05:00 37 C 99 H 20 100/67 95 07/31/20 04:44 37.1 C 102 H 20 104/72 97 07/31/20 04:29 37.1 C 97 H 20 103/70 95 07/31/20 03:12 37.0 C 95 H 18 118/74 98 07/31/20 01:17 36.9 C 92 H 20 103/70 96 07/31/20 01:12 36.9 C 100 H 19 97/67 L 94 07/31/20 00:12 37.2 C 94 H 18 100/68 97 07/30/20 23:42 37.1 C 97 H 18 123/79 98 07/30/20 23:27 37.1 C 97 H 20 116/70 97 07/30/20 23:09 37.1 C 101 H 20 110/72 96 Laboratory Results Laboratory Results - last 24 hr 07/30/20 07/30/20 07/30/20 14:43 14:43 14:43 WBC RBC Hgb Hct MCV MCH MCHC RDW Std Deviation RDW Coeff of Christine Plt Count MPV Immature Gran % (Auto) Neut % (Auto) Lymph % (Auto) Knott % (Auto) Eos % (Auto) Baso % (Auto) Neut # (Auto) Lymph # (Auto) Knott # (Auto) Eos # (Auto) Baso # (Auto) Immature Gran # (Auto) Anisocytosis Target Cells RBC Agglutinates PT INR APTT PTT Ratio Sodium 136 Potassium 2.0 L* Chloride 91 L Carbon Dioxide 34 H Anion Gap 10.0 BUN 4 L Creatinine 1.17 Est Cr Clr Drug Dosing 71.0 Est GFR ( Amer) 68.5 Est GFR (Non-Af Amer) 59.1 BUN/Creatinine Ratio 3.4 L Glucose 92 Calcium 5.4 L* Magnesium 0.6 L* Total Bilirubin 6.7 H AST 98 H ALT 22 Alkaline Phosphatase 145 H Troponin I < 0.015 NT-Pro-B Natriuret Pep 641 H Total Protein 7.4 Albumin 2.1 L Globulin 5.3 H Albumin/Globulin Ratio 0.4 L Lipase 64 L HCG, Qual Negative Urine Color Urine Appearance Urine pH Ur Specific [place] Urine Protein Urine Glucose (UA) Urine Ketones Urine Blood Urine Nitrite Urine Bilirubin Urine Urobilinogen Ur Leukocyte Esterase Urine WBC (Auto) Urine RBC (Auto) U Hyaline Cast (Auto) U Epithel Cells (Auto) Urine Bacteria (Auto) Nasal Screen MRSA (PCR) Stool Occult Bld Scrn Stl C. diff Tox B Gene Adenovirus (PCR) B. pertussis DNA (PCR) B.parapertussis DNA PCR C. pneumoniae DNA (PCR) Coronavirus OC43 (PCR) Coronavirus HKU1 (PCR) Coronavirus 229E (PCR) COVID-19 Eval Order COVID-19 PCR Coronavirus NL63 (PCR) Human Metapneumovir PCR Influenza Type A (PCR) Influenza Type B (PCR) M. pneumoniae (PCR) Parainfluenza 1 (PCR) Parainfluenza 2 (PCR) Parainfluenza 3 (PCR) Parainfluenza 4 (PCR) RSV (PCR) Entero/Rhino (PCR) Blood Type A Positive Antibody Screen POSITIVE A Antibody Identification Anti-I Antibody ID Comment Pending Crossmatch See Detail 07/30/20 07/30/20 07/30/20 14:43 14:43 15:15 WBC 13.46 H RBC 1.82 L Hgb 6.4 L* Hct 18.2 L* MCV 100.0 MCH 35.2 H MCHC 35.2 RDW Std Deviation RDW Coeff of Christine Plt Count 232 MPV 10.1 Immature Gran % (Auto) 0.2 Neut % (Auto) 82.1 Lymph % (Auto) 9.4 Knott % (Auto) 7.4 Eos % (Auto) 0.7 Baso % (Auto) 0.2 Neut # (Auto) 11.04 H Lymph # (Auto) 1.27 Knott # (Auto) 1.00 H Eos # (Auto) 0.09 Baso # (Auto) 0.03 Immature Gran # (Auto) 0.03 H Anisocytosis Present Target Cells 2+ RBC Agglutinates 2+ PT 16.6 H INR 1.6 H APTT 31.9 H PTT Ratio 1.1 Sodium Potassium Chloride Carbon Dioxide Anion Gap BUN Creatinine Est Cr Clr Drug Dosing Est GFR ( Amer) Est GFR (Non-Af Amer) BUN/Creatinine Ratio Glucose Calcium Magnesium Total Bilirubin AST ALT Alkaline Phosphatase Troponin I NT-Pro-B Natriuret Pep Total Protein Albumin Globulin Albumin/Globulin Ratio Lipase HCG, Qual Urine Color Urine Appearance Urine pH Ur Specific Hurst Urine Protein Urine Glucose (UA) Urine Ketones Urine Blood Urine Nitrite Urine Bilirubin Urine Urobilinogen Ur Leukocyte Esterase Urine WBC (Auto) Urine RBC (Auto) U Hyaline Cast (Auto) U Epithel Cells (Auto) Urine Bacteria (Auto) Nasal Screen MRSA (PCR) Stool Occult Bld Scrn Stl C. diff Tox B Gene Adenovirus (PCR) B. pertussis DNA (PCR) B.parapertussis DNA PCR C. pneumoniae DNA (PCR) Coronavirus OC43 (PCR) Coronavirus HKU1 (PCR) Coronavirus 229E (PCR) COVID-19 Eval Order Covid19 Done at [facility] COVID-19 PCR Coronavirus NL63 (PCR) Human Metapneumovir PCR Influenza Type A (PCR) Influenza Type B (PCR) M. pneumoniae (PCR) Parainfluenza 1 (PCR) Parainfluenza 2 (PCR) Parainfluenza 3 (PCR) Parainfluenza 4 (PCR) RSV (PCR) Entero/Rhino (PCR) Blood Type Antibody Screen Antibody Identification Antibody ID Comment Crossmatch 07/30/20 07/30/20 07/30/20 15:15 16:40 18:50 WBC RBC Hgb Hct MCV MCH MCHC RDW Std Deviation RDW Coeff of Christine Plt Count MPV Immature Gran % (Auto) Neut % (Auto) Lymph % (Auto) Knott % (Auto) Eos % (Auto) Baso % (Auto) Neut # (Auto) Lymph # (Auto) Knott # (Auto) Eos # (Auto) Baso # (Auto) Immature Gran # (Auto) Anisocytosis Target Cells RBC Agglutinates PT INR APTT PTT Ratio Sodium Potassium Chloride Carbon Dioxide Anion Gap BUN Creatinine Est Cr Clr Drug Dosing Est GFR ( Amer) Est GFR (Non-Af Amer) BUN/Creatinine Ratio Glucose Calcium Magnesium Total Bilirubin AST ALT Alkaline Phosphatase Troponin I NT-Pro-B Natriuret Pep Total Protein Albumin Globulin Albumin/Globulin Ratio Lipase HCG, Qual Urine Color [place] Urine Appearance Cloudy A Urine pH 5.5 Ur Specific Hurst 1.014 Urine Protein 1+ H Urine Glucose (UA) Negative Urine Ketones Negative Urine Blood 3+ H Urine Nitrite Positive A Urine Bilirubin 3+ H Urine Urobilinogen Negative Ur Leukocyte Esterase Trace H Urine WBC (Auto) 10-30 H Urine RBC (Auto) >30 H U Hyaline Cast (Auto) 5-10 H U Epithel Cells (Auto) >30 H Urine Bacteria (Auto) 4+ H Nasal Screen MRSA (PCR) Stool Occult Bld Scrn Stl C. diff Tox B Gene Adenovirus (PCR) Not Detected B. pertussis DNA (PCR) Not Detected B.parapertussis DNA PCR Not Detected C. pneumoniae DNA (PCR) Not Detected Coronavirus OC43 (PCR) Not Detected Coronavirus HKU1 (PCR) Not Detected Coronavirus 229E (PCR) Not Detected COVID-19 Eval Order COVID-19 PCR NEGATIVE Not Detected Coronavirus NL63 (PCR) Not Detected Human Metapneumovir PCR Not Detected Influenza Type A (PCR) Not Detected Influenza Type B (PCR) Not Detected M. pneumoniae (PCR) Not Detected Parainfluenza 1 (PCR) Not Detected Parainfluenza 2 (PCR) Not Detected Parainfluenza 3 (PCR) Not Detected Parainfluenza 4 (PCR) Not Detected RSV (PCR) Not Detected Entero/Rhino (PCR) Not Detected Blood Type Antibody Screen Antibody Identification Antibody ID Comment Crossmatch 07/30/20 07/30/20 07/30/20 18:50 19:34 19:34 WBC RBC Hgb 6.5 L* Hct 18.3 L* MCV MCH MCHC RDW Std Deviation RDW Coeff of Christine Plt Count MPV Immature Gran % (Auto) Neut % (Auto) Lymph % (Auto) Knott % (Auto) Eos % (Auto) Baso % (Auto) Neut # (Auto) Lymph # (Auto) Knott # (Auto) Eos # (Auto) Baso # (Auto) Immature Gran # (Auto) Anisocytosis Target Cells RBC Agglutinates PT INR APTT PTT Ratio Sodium 135 L Potassium 2.1 L* Chloride 92 L Carbon Dioxide 34 H Anion Gap 11.0 BUN 5 L Creatinine 1.13 Est Cr Clr Drug Dosing 73.5 Est GFR ( Amer) 71.4 Est GFR (Non-Af Amer) 61.6 BUN/Creatinine Ratio 4.2 L Glucose 94 Calcium 5.3 L* Magnesium 1.3 L Total Bilirubin 7.1 H AST 99 H ALT 23 Alkaline Phosphatase 142 H Troponin I NT-Pro-B Natriuret Pep Total Protein 7.1 Albumin 2.0 L Globulin 5.1 H Albumin/Globulin Ratio 0.4 L Lipase HCG, Qual Urine Color Urine Appearance Urine pH Ur Specific [place] Urine Protein Urine Glucose (UA) Urine Ketones Urine Blood Urine Nitrite Urine Bilirubin Urine Urobilinogen Ur Leukocyte Esterase Urine WBC (Auto) Urine RBC (Auto) U Hyaline Cast (Auto) U Epithel Cells (Auto) Urine Bacteria (Auto) Nasal Screen MRSA (PCR) Negative Stool Occult Bld Scrn Stl C. diff Tox B Gene Adenovirus (PCR) B. pertussis DNA (PCR) B.parapertussis DNA PCR C. pneumoniae DNA (PCR) Coronavirus OC43 (PCR) Coronavirus HKU1 (PCR) Coronavirus 229E (PCR) COVID-19 Eval Order COVID-19 PCR Coronavirus NL63 (PCR) Human Metapneumovir PCR Influenza Type A (PCR) Influenza Type B (PCR) M. pneumoniae (PCR) Parainfluenza 1 (PCR) Parainfluenza 2 (PCR) Parainfluenza 3 (PCR) Parainfluenza 4 (PCR) RSV (PCR) Entero/Rhino (PCR) Blood Type Antibody Screen Antibody Identification Antibody ID Comment Crossmatch 07/31/20 07/31/20 07/31/20 02:33 02:33 03:15 WBC 12.30 H RBC 1.88 L Hgb 6.8 L* Hct 19.2 L* MCV 102.1 H MCH 36.2 H MCHC 35.4 RDW Std Deviation 78.1 H RDW Coeff of Christine 24.6 H Plt Count 213 MPV 10.6 H Immature Gran % (Auto) 0.3 Neut % (Auto) 80.5 Lymph % (Auto) 11.4 Knott % (Auto) 6.6 Eos % (Auto) 1.0 Baso % (Auto) 0.2 Neut # (Auto) 9.90 H Lymph # (Auto) 1.40 Knott # (Auto) 0.81 H Eos # (Auto) 0.12 Baso # (Auto) 0.03 Immature Gran # (Auto) 0.04 H Anisocytosis Present Target Cells 1+ RBC Agglutinates PT INR APTT PTT Ratio Sodium 138 Potassium 2.3 L* Chloride 96 L Carbon Dioxide 35 H Anion Gap 7.0 BUN 5 L Creatinine 1.01 Est Cr Clr Drug Dosing 82.3 Est GFR ( Amer) 81.8 Est GFR (Non-Af Amer) 70.6 BUN/Creatinine Ratio 4.5 L Glucose 83 Calcium 5.3 L* Magnesium 1.2 L Total Bilirubin AST ALT Alkaline Phosphatase Troponin I NT-Pro-B Natriuret Pep 579 H Total Protein Albumin Globulin Albumin/Globulin Ratio Lipase HCG, Qual Urine Color Urine Appearance Urine pH Ur Specific [place] Urine Protein Urine Glucose (UA) Urine Ketones Urine Blood Urine Nitrite Urine Bilirubin Urine Urobilinogen Ur Leukocyte Esterase Urine WBC (Auto) Urine RBC (Auto) U Hyaline Cast (Auto) U Epithel Cells (Auto) Urine Bacteria (Auto) Nasal Screen MRSA (PCR) Stool Occult Bld Scrn Negative Stl C. diff Tox B Gene Adenovirus (PCR) B. pertussis DNA (PCR) B.parapertussis DNA PCR C. pneumoniae DNA (PCR) Coronavirus OC43 (PCR) Coronavirus HKU1 (PCR) Coronavirus 229E (PCR) COVID-19 Eval Order COVID-19 PCR Coronavirus NL63 (PCR) Human Metapneumovir PCR Influenza Type A (PCR) Influenza Type B (PCR) M. pneumoniae (PCR) Parainfluenza 1 (PCR) Parainfluenza 2 (PCR) Parainfluenza 3 (PCR) Parainfluenza 4 (PCR) RSV (PCR) Entero/Rhino (PCR) Blood Type Antibody Screen Antibody Identification Antibody ID Comment Crossmatch 07/31/20 03:15 WBC RBC Hgb Hct MCV MCH MCHC RDW Std Deviation RDW Coeff of Christine Plt Count MPV Immature Gran % (Auto) Neut % (Auto) Lymph % (Auto) Knott % (Auto) Eos % (Auto) Baso % (Auto) Neut # (Auto) Lymph # (Auto) Knott # (Auto) Eos # (Auto) Baso # (Auto) Immature Gran # (Auto) Anisocytosis Target Cells RBC Agglutinates PT INR APTT PTT Ratio Sodium Potassium Chloride Carbon Dioxide Anion Gap BUN Creatinine Est Cr Clr Drug Dosing Est GFR ( Amer) Est GFR (Non-Af Amer) BUN/Creatinine Ratio Glucose Calcium Magnesium Total Bilirubin AST ALT Alkaline Phosphatase Troponin I NT-Pro-B Natriuret Pep Total Protein Albumin Globulin Albumin/Globulin Ratio Lipase HCG, Qual Urine Color Urine Appearance Urine pH Ur Specific [place] Urine Protein Urine Glucose (UA) Urine Ketones Urine Blood Urine Nitrite Urine Bilirubin Urine Urobilinogen Ur Leukocyte Esterase Urine WBC (Auto) Urine RBC (Auto) U Hyaline Cast (Auto) U Epithel Cells (Auto) Urine Bacteria (Auto) Nasal Screen MRSA (PCR) Stool Occult Bld Scrn Stl C. diff Tox B Gene Negative Cdiff Gene Adenovirus (PCR) B. pertussis DNA (PCR) B.parapertussis DNA PCR C. pneumoniae DNA (PCR) Coronavirus OC43 (PCR) Coronavirus HKU1 (PCR) Coronavirus 229E (PCR) COVID-19 Eval Order COVID-19 PCR Coronavirus NL63 (PCR) Human Metapneumovir PCR Influenza Type A (PCR) Influenza Type B (PCR) M. pneumoniae (PCR) Parainfluenza 1 (PCR) Parainfluenza 2 (PCR) Parainfluenza 3 (PCR) Parainfluenza 4 (PCR) RSV (PCR) Entero/Rhino (PCR) Blood Type Antibody Screen Antibody Identification Antibody ID Comment Crossmatch Diagnostic Findings US gallbladder HISTORY: 40 years-old Female upper abd pain, elevated lfts. Acute right upper quadrant abdominal pain COMPARISON: CT abdomen and pelvis 04/24/2020 TECHNIQUE: Multiple real-time sonographic images of the abdominal right upper quadrant were obtained assessing grayscale appearance and color flow FINDINGS: Study is limited secondary to body habitus. Hepatomegaly with hepatic steatosis. Pancreas is not diagnostically visualized, obscured by bowel gas. Distended sludge-filled gallbladder. No definite shadowing cholelithiasis. Gallbladder measures up to 13.8 cm in length. Mild gallbladder wall thickening measures 4 mm. Sonographic Parnell sign reported as positive. There is no pericholecystic edema/fluid. Common bile duct is dilated measuring 1 cm. No choledocholithiasis identified. Imaged right kidney is unremarkable without hydronephrosis. IMPRESSION: 1. Distended gallbladder with layering sludge, wall thickening and equivocal pericholecystic fluid. No definite shadowing cholelithiasis. Findings could be correlated with nuclear medicine hepatobiliary scan to exclude acute cholecystitis. 2. Distended common bile duct. This finding should be correlated with laboratory analysis to exclude biliary obstruction. 3. Hepatomegaly with hepatic steatosi
--- NOTE | 2020-07-31 08:45 | Nephrology Consultation ---
Date of Consultation July 31, 2020 Assessment & Plan (1) Proteinuria: She has a previous history of proteinuria with random urine protein of 35.1 and random creatinine of 13(04/26). She denies any renal problems in the past, other there is a family history of SLE. Renal functions are normal. Autoimmune screen has been essentially negative in the past with no M spike. Best way to proceed forward is to get a 24-hour urine collection for protein, creatinine, FLC, Hep B and HIV. As a cause of her proteinuria is uncertain, he may require kidney biopsy. (2) Hypocalcemia: He has hypocalcemia, hypomagnesemia and hypokalemia, She admiited to 2-3 watery bowel movements since the time of her discharge. Likely Etiology could be GI loss, she has also been on diuretic which could be a contributary factor.. Needs urine studies, urine chloride calcium protein magnesium calcium and potassium. Agree with aggressive placement of all the electrolytes with IV and oral Continue to hold furosemide. (3) Hypomagnesemia: Same as #2 (4) Hypokalemia: Same as #2 (5) Cirrhosis: Gastro on board. (6) Heart failure with preserved ejection fraction: per primary (7) Anemia: As per primary. History of Present Illness Reason for Consultation: Proteinuria and Electrolyte disbalance (hypokalemia hypomagnesemia hypocalcemia) Attending Physician: Janak Curiel MD History of Present Illness This is a 40-year-old female with complicated past medical history of chronic heart failure with preserved ejection fraction (EF 55%), mild pulmonary hypertension PAP(35), history of pleural effusion(worked up for autoimmune disease with negative ANCA, MICHAEL, [place]-3 ,SSA, SSB, [employer]ER, double-stranded DNA , anti-[place]aton,FL-3 , Rh factor). She has also got a history of elevated liver enzymes and ascites ( GI for possible transjugular liver biopsy) She presented to the ER on with increasing shortness of breath for the last 2 to 3 days with increased weakness and right upper quadrant /epigastric pain with poor appetite but no nausea and Vomiting.She has been having 2-3 episodes of watery diarrhoea ever since her discharge in April this year.Labs in the ER were positive for a hemoglobin of 6.4, potassium of 2, with low magnesium and calcium and elevated liver panel. Chest x-ray was positive for likely multifocal pneumonia. Abdominal ultrasound showed hepatomegaly with hepatic steatosis distended gall bladder and CBD. During the previous admission in April, she was found to have proteinuria with normal renal function and was due to see a fabric finisher for follow-up. She has got of family history of SLE, although autoimmune screen has been negative so far. She does not have diabetes, hep C was positive although the RNA was negative for Viral Rd. She denies using NSAIDs, no previous history of kidney problems, stones, hematuria or proteinuria with no pedal edema, rash or joint pain. She has been a lifelong smoker and alcoholic. Allergies Allergy/AdvReac Type Severity Reaction Status Date / Time mushroom Allergy Severe ANAPHYLAXIS Verified 07/30/20 14:38 onion Allergy Severe ANAPHYLAXIS Verified 07/30/20 14:38 tramadol Allergy Mild RASH AND Verified 07/30/20 14:38 ITCHING ketorolac Allergy Unknown RASH Verified 07/30/20 14:38 green peppers Allergy Severe ANAPHYLAXIS Uncoded 07/30/20 14:38 Plasencia Pepper Allergy Unknown ANAPHYLAXIS Uncoded 07/30/20 14:38 FROM GREEN PEPPER Home Medications Home Medications Medication Instructions Recorded Confirmed Type albuterol sulfate 2 puff INHALATION Q4 PRN 04/24/20 07/30/20 History buprenorphine-naloxone 1.5 tab SUBLINGUAL UD 04/24/20 07/30/20 History ferrous sulfate 325 mg PO DAILY 07/30/20 07/30/20 History folic acid 1 mg PO DAILY 07/30/20 07/30/20 History furosemide 40 mg PO DAILY 07/30/20 07/30/20 History metoprolol succinate 25 mg PO DAILY 07/30/20 07/30/20 History Patient History Medical History Heart failure with preserved ejection fraction Hepatomegaly Pleural effusion on left Pleural effusion on right Proteinuria Pulmonary edema Transaminitis Family History Mother Lupus (systemic lupus erythematosus) Social History Smoking Status: Current every day smoker Tobacco Type: Cigarettes Cigarettes Per Day: 10; Do You Dip or Chew Tobacco: No; Hx Alcohol Use: Yes Alcohol type: hard liquor Hx Substance Use: No Preferred Language: Somali Communication Ability: Effective Batch Still Operator Required: No Beliefs That Will Affect Care: None Current Living Situation: Spouse and Family Other Information That Helps Us Care for You: No Feels Safe at Home: Yes Safety Concerns: Feels Safe At This Time Assistive Devices: BiPap and Oxygen - Continuous Review of Systems Review of Systems: All systems reviewed & are unremarkable except as noted in HPI & below Physical Exam Constitutional: no acute distress Eyes: + scleral abnormality Scleral icterus noted Neck: trachea midline, no thyromegaly No JVD noted today Respiratory: + labored breathing; does not use accessory muscles and no cough Cardiovascular: Heart Sounds: + murmur Gastrointestinal (Abdomen): Inspection/Auscultation: + abdomen distended and + abdominal edema Percussion/Palpation: abdomen soft; abdomen nontender and no guarding Skin: + jaundice; no ulcers Neurologic: no focal motor deficits Results & Data ([facility]) Vital Signs (Past 12 Hours) Vital Signs Temp Pulse Pulse Resp BP BP Pulse Ox 07/31/20 07:33 37.1 C 96 H 18 110/70 97 07/31/20 06:30 37.2 C 90 20 100/66 94 07/31/20 05:30 36.9 C 96 H 20 104/66 97 07/31/20 05:00 37 C 99 H 20 100/67 95 07/31/20 04:44 37.1 C 102 H 20 104/72 97 07/31/20 04:29 37.1 C 97 H 20 103/70 95 07/31/20 03:12 37.0 C 95 H 18 118/74 98 07/31/20 01:17 36.9 C 92 H 20 103/70 96 07/31/20 01:12 36.9 C 100 H 19 97/67 L 94 07/31/20 00:12 37.2 C 94 H 18 100/68 97 07/30/20 23:42 37.1 C 97 H 18 123/79 98 07/30/20 23:27 37.1 C 97 H 20 116/70 97 07/30/20 23:09 37.1 C 101 H 20 110/72 96 Laboratory Results 07/31/20 02:33 07/31/20 02:33
--- NOTE | 2020-07-31 08:49 | Electrocardiogram Report ---
Test Reason : Blood Pressure : / mmHG Vent. Rate : 089 BPM Atrial Rate : 089 BPM P-R Int : 148 ms QRS Dur : 084 ms QT Int : 400 ms P-R-T Axes : 065 059 059 degrees QTc Int : 487 ms Normal sinus rhythm Low voltage QRS Prolonged QT Abnormal ECG When compared with ECG of 30-JUL-2020 14:17, (unconfirmed) Nonspecific T wave abnormality no longer evident in Anterolateral leads Confirmed by Helio Da Silva ([id number]) on 07/31/2020 8:49:06 AM Referred By: Andre Siegel Confirmed By:Helio Da Silva
--- NOTE | 2020-07-31 08:52 | Electrocardiogram Report ---
Test Reason : Blood Pressure : / mmHG Vent. Rate : 094 BPM Atrial Rate : 094 BPM P-R Int : 144 ms QRS Dur : 080 ms QT Int : 452 ms P-R-T Axes : 041 034 047 degrees QTc Int : 565 ms Poor data quality, interpretation may be adversely affected Normal sinus rhythm Prolonged QT Abnormal ECG When compared with ECG of 25-APR-2020 06:37, QT has lengthened Confirmed by Helio Da Silva ([id number]) on 07/31/2020 8:51:34 AM Referred By: Andre Siegel Confirmed By:Helio Da Silva
[2020-07-31] MEDS: BUPRENORPHINE/NALOXONE 8/2 MG TAB SL SCH (09:00)
--- NOTE | 2020-07-31 09:00 | Magnetic Resonance Report ---
MRCP CLINICAL HISTORY: Elevated bilirubin, common bile duct dilated TECHNIQUE: Utilizing a 1.5 Tawana magnet and dedicated coil, multiplanar, multiecho imaging of the [facility] abdomen was performed utilizing heavily T2 weighted pulsing sequences without IV contrast. COMPARISON STUDY: CT of the abdomen and pelvis April 24, 2020 and July 30, 2020. Right upper lisa drant ultrasound July 30, 2020. FINDINGS: The liver is markedly enlarged, measuring 30.7 cm in cranial caudal dimension. The spleen i s moderately enlarged. Better shown on prior CT, there is evidence for severe fatty infiltration of t he liver with preferential fatty infiltration within the gallbladder fossa. There is mild dilatation of the common bile duct, measuring 7 mm in caliber. No common bile duct calculi are identified. Sludg e within the gallbladder is better shown on prior ultrasound. There is mild gallbladder wall thickeni ng. No peripancreatic infiltration is noted. The course and caliber of the main pancreatic duct is no rmal. Unenhanced images of the adrenal glands and kidneys are unremarkable. IMPRESSION: 1. Marked hepatomegaly and severe fatty infiltration of the liver. 2. Mild dilatation of the common bile duct, measuring 7 mm. No common bile duct calculi. 3. Gallbladder sludge, better shown on prior ultrasound. Mild gallbladder wall thickening. Although n ot highly suggestive of acute cholecystitis, a nuclear medicine hepatobiliary scan could be obtained if indicated. 4. Moderate splenomegaly. ACT 112: Negative or not required by law. Electronically signed by: Vitor Rodriguez M.D. 07/31/2020 8:59 AM
[2020-07-31] MEDS ORDERED: CEFEPIME CONSULT ACTIVE PRN (09:08)
--- NOTE | 2020-07-31 09:28 | CT Scan Report ---
CT chest wo con CT DOSE: 1271.89 mGy.cm CLINICAL HISTORY: 40 years-old Female with Hypoxia, Negative COVID. Acute hypoxia TECHNIQUE: Multiaxial CT images of the chest were performed without contrast. A dose lowering techni que was utilized adhering to the principles of ALARA. COMPARISON: CT abdomen and pelvis of same day, CTA chest 04/24/2020 FINDINGS: Mildly enlarged paratracheal, subcarinal and AP window lymph nodes are redemonstrated measu ring up to 11 mm, unchanged from comparison. Unremarkable thyroid. Heart is upper limits of normal in size. Trace pericardial effusion. No thoracic aortic aneurysm. Mild prominence of the pulmonary angy ry measuring 3.2 cm may correlate with pulmonary artery hypertension. Trace right pleural effusion. There is no pneumothorax. Intralobular septal thickening with diffuse m ultisegmental multilobar distribution of patchy groundglass opacities, right greater than left. 3 mm calcified granuloma of the left lower lobe. Mild linear subsegmental consolidative opacities of the l thom bases are compatible with atelectasis. Calcified granulomata of the right middle lobe. Central ai rways are patent. Hepatomegaly with marked hepatic steatosis. Splenomegaly. Breast parenchyma and soft tissues appear u nremarkable. The bones appear intact. No acute fracture or suspicious bone lesion. IMPRESSION: 1. Intralobular septal thickening with extensive bilateral groundglass opacities, right greater than left. Differential considerations would include interstitial and alveolar pulmonary edema versus a no nspecific infectious or inflammatory pneumonitis. Follow-up is needed. 2. Trace right pleural effusion. 3. Unchanged mild mediastinal adenopathy. 4. Hepatosplenomegaly with hepatic steatosis redemonstrated. ACT 112: Negative or not required by law. Electronically signed by: Elkin Quan M.D. 07/31/2020 9:27 AM
--- NOTE | 2020-07-31 09:29 | CT Scan Report ---
CT OF THE ABDOMEN AND PELVIS WITHOUT CONTRAST CLINICAL HISTORY: Abnormal LFTs, anemia COMPARISON STUDY: CT of the abdomen and pelvis April 24, 2020. Right upper quadrant ultrasound Septem 2019 at 4:48 PM. TECHNIQUE: Axial images of the abdomen and pelvis were obtained without IV contrast. Images were revi ewed in the axial, sagittal, and coronal planes. Automated exposure control was utilized for the margot dy. A dose lowering technique was utilized adhering to the principles of ALARA. FINDINGS: Please note that the chest CT will be reported separately. Extensive airspace opacities wit hin the lungs are better depicted on that exam. Marked hepatomegaly is noted. There is severe fatty i nfiltration of the liver with preferential areas of fatty infiltration within the gallbladder fossa. Moderate splenomegaly is noted. Evaluation of the abdomen and pelvis is suboptimal on this unenhanced examination. Body wall edema is noted. Unenhanced images of the adrenal glands, kidneys and pancreas are normal. There is no pancreatic ductal dilatation. There is no hydronephrosis or hydroureter. The appendix contains hyperdense material but there is no evidence for acute appendicitis. There is mini mal mesenteric infiltration. There is no abscess. Mild colonic wall thickening is likely due to under distention. There is no evidence for a bowel obstruction. There are no suspicious osseous lesions. IMPRESSION: 1. Marked hepatomegaly and severe fatty infiltration of the liver. 2. Moderate splenomegaly. 3. No bowel obstruction. Mild colonic wall thickening is likely due to underdistention. A mild nonspe cific colitis could appear similar but is considered less likely. 4. Extensive airspace opacities within the lungs which are better depicted on chest CT. These favor a n infectious process. ACT 112: Negative or not required by law. Electronically signed by: Vitor Rodriguez M.D. 07/31/2020 9:27 AM
[2020-07-31] MEDS: CEFEPIME 2,000 MG in SYRINGE 0 ML IV SCH ×2 (09:49→18:11)
--- NOTE | 2020-07-31 10:18 | Surgery Consultation ---
Date of Consultation July 31, 2020 Assessment & Plan (1) Elevated liver enzymes: (2) Acute cholecystitis: pt is a 40 year-old female who was admitted to hospital abdominal pain and elevate LFTs. IMP: acute cholecystitis, cholelithiasis, anemia, no emergent indication of cholecystectomy now, medical treatment first, may get HIDA scan to more understand cholecystitis, GI will do ERCP. will F/U Present on Admission?: Yes History of Present Illness Attending Physician: Janak Curiel MD History of Present Illness Chief Complaint: Shortness of breath Primary Care Provider: Andre Siegel MD Ms. Guzman is a 40-year-old female with recent diagnosis of chronic heart failure, with preserved ejection fraction, at that time she presented in the hospital with pleural effusions, edema and shortness of breath. Her hospital stay was very short and she was transferred emergently to [facility]. She was intubated during her flight to [facility]. At that time she was also found anemic, interestingly her hep C antibodies were positive, as well as she was found to have proteinuria. She was discharged from [facility] on Lasix, metoprolol, folic acid, iron supplement. Patient is also using Suboxone for several years. When she was discharged from [facility], she was discharged with supplemental oxygen, which she says that she uses between 2-1/2 L to 4 L. Occasionally she does not use oxygen, she says that when she is at rest sometimes "she does not need it". She did obtain pulse ox and frequently checks her oxygen saturations levels. She followed-up with her primary care doctor, as well as cardiology, and pulmonary medicine. It was also recommended that given her proteinuria she would follow-up with nephrology, the appointment is scheduled however she has not been seen yet. Pulmonary medicine recommended PFTs and sleep study. Per cardiology, she was supposed to continue her Lasix and metoprolol, chest x-ray and echocardiogram were obtained, pleural effusions were resolved. She now presents with increased shortness of breath for the past 2 to 3 days. She states that she weighs herself daily, and her optimal weight is about 196 pounds. She reports that when she was hospitalized last time, she was about 20 pounds heavier. She denies any recent increase in her weight or edema. She reports cramping in her extremities, which can be quite debilitating for her and it " takes her breath away". She also reports extreme weakness for past 2 to 3 days. In addition she reported right upper quadrant/epigastric pain and spasm that she first noticed yesterday, now she only reports mild discomfort in that area. She has very poor appetite, and says that she has not been able to eat much lately. She denies any nausea or vomiting. She also denies any bleeding, denies blood in the stool. In the ED she was found to have hemoglobin of 6.4, potassium 2.0, magnesium 0.06, INR 1.6, low calcium, elevated alk phos, T bili, ALT, COVID was also tested and was negative. Chest x-ray was obtained, no pleural effusions now, however there are diffuse bilateral reticular opacities. Abdominal ultrasound w as obtained, showed hepatomegaly with hepatic steatosis, distended gallbladder with layering sludge, wall thickening and equivocal pericholecystic fluid. Distended common bile duct. Patient is currently lying in bed, in no acute distress, using supplemental oxygen. She is able to speak in full sentences. She is alert and oriented and answering questions appropriately. I ( Chelsey Hayes MD ) got a call for consult acute cholecystitis, I reviewed pt's H/P, labs, CT scan, MRCP and U/S study with pt, pt has mild RUQ pain now, no nausea, no vomiting, Allergies Allergy/AdvReac Type Severity Reaction Status Date / Time mushroom Allergy Severe ANAPHYLAXIS Verified 07/30/20 14:38 onion Allergy Severe ANAPHYLAXIS Verified 07/30/20 14:38 tramadol Allergy Mild RASH AND Verified 07/30/20 14:38 ITCHING ketorolac Allergy Unknown RASH Verified 07/30/20 14:38 green peppers Allergy Severe ANAPHYLAXIS Uncoded 07/30/20 14:38 Plasencia Pepper Allergy Unknown ANAPHYLAXIS Uncoded 07/30/20 14:38 FROM GREEN PEPPER Home Medications Home Medications Medication Instructions Recorded Confirmed Type albuterol sulfate 2 puff INHALATION Q4 PRN 04/24/20 07/30/20 History buprenorphine-naloxone 1.5 tab SUBLINGUAL UD 04/24/20 07/30/20 History ferrous sulfate 325 mg PO DAILY 07/30/20 07/30/20 History folic acid 1 mg PO DAILY 07/30/20 07/30/20 History furosemide 40 mg PO DAILY 07/30/20 07/30/20 History metoprolol succinate 25 mg PO DAILY 07/30/20 07/30/20 History Past Med/Surg History Medical History Hepatomegaly Pleural effusion on left Pleural effusion on right Pulmonary edema Transaminitis Family History Mother Lupus (systemic lupus erythematosus) Social History Smoking Status: Current every day smoker Tobacco Type: Cigarettes Cigarettes Per Day: 10; Do You Dip or Chew Tobacco: No; Hx Alcohol Use: Yes Alcohol type: hard liquor Hx Substance Use: No Preferred Language: Cymro Communication Ability: Effective Meter Attendant Required: No Beliefs That Will Affect Care: None Current Living Situation: Spouse and Family Other Information That Helps Us Care for You: No Feels Safe at Home: Yes Safety Concerns: Feels Safe At This Time Assistive Devices: BiPap, Oxygen - at Night and Oxygen - Continuous Review of Systems Review of Systems: All systems reviewed & are unremarkable except as noted in HPI & below Constitutional: no fever and no chills Eyes: no problem reported Ear, Nose, Mouth, Throat: no problem reported Respiratory: + dyspnea on exertion Cardiovascular: + palpitations; no chest pain Gastrointestinal: + abdominal pain (upper quadrant, right/epigastric) Genitourinary: no problem reported Musculoskeletal: cramps Integumentary: no problem reported Neurologic: no problem reported Psychiatric: no problem reported Endocrine: no problem reported Hematologic / Lymphatic: no problem reported Allergy / Immunological: no problem reported Allergies Allergy/AdvReac Type Severity Reaction Status Date / Time mushroom Allergy Severe ANAPHYLAXIS Verified 07/30/20 14:38 onion Allergy Severe ANAPHYLAXIS Verified 07/30/20 14:38 tramadol Allergy Mild RASH AND Verified 07/30/20 14:38 ITCHING ketorolac Allergy Unknown RASH Verified 07/30/20 14:38 green peppers Allergy Severe ANAPHYLAXIS Uncoded 07/30/20 14:38 Plasencia Pepper Allergy Unknown ANAPHYLAXIS Uncoded 07/30/20 14:38 FROM GREEN PEPPER Home Medications Home Medications Medication Instructions Recorded Confirmed Type albuterol sulfate 2 puff INHALATION Q4 PRN 04/24/20 07/30/20 History buprenorphine-naloxone 1.5 tab SUBLINGUAL UD 04/24/20 07/30/20 History ferrous sulfate 325 mg PO DAILY 07/30/20 07/30/20 History folic acid 1 mg PO DAILY 07/30/20 07/30/20 History furosemide 40 mg PO DAILY 07/30/20 07/30/20 History metoprolol succinate 25 mg PO DAILY 07/30/20 07/30/20 History Patient History Medical History (Updated 07/31/20 @ 10:22 by Chelsey Hayes MD) Heart failure with preserved ejection fraction Hepatomegaly Pleural effusion on left Pleural effusion on right Proteinuria Pulmonary edema Transaminitis Family History Mother Lupus (systemic lupus erythematosus) Social History Smoking Status: Current every day smoker Tobacco Type: Cigarettes Cigarettes Per Day: 10; Do You Dip or Chew Tobacco: No; Hx Alcohol Use: Yes Alcohol type: hard liquor Hx Substance Use: No Preferred Language: Cymro Communication Ability: Effective Meter Attendant Required: No Beliefs That Will Affect Care: None Current Living Situation: Spouse and Family Other Information That Helps Us Care for You: No Feels Safe at Home: Yes Safety Concerns: Feels Safe At This Time Assistive Devices: BiPap and Oxygen - Continuous Physical Exam Constitutional: WD/WN, vitals as above + ill appearing Eyes: PERRL, conjunctivae normal, anicteric sclerae ENMT: external ear and nose normal, oropharynx normal Neck: trachea midline, no thyromegaly Respiratory: normal respiratory effort, lungs clear to auscultation Cardiovascular: RRR, no murmur, no edema Rate/Rhythm: regular rate and regular rhythm Heart Sounds: normal S1 and normal S2 Gastrointestinal (Abdomen): normal bowel sounds, soft, nontender, no he patosplenomegaly no tenderness at RUQ, no distend, BS + Musculoskeletal: no cyanosis or clubbing, extremities motor strength 5/5 Skin: no rashes, warm and dry Neurologic: patellar DTR's 2+ bilat, sensation intact Psychiatric: Orientation: alert and oriented x 3 Results & Data ([facility]) Vital Signs (Past 12 Hours) Vital Signs Temp Pulse Pulse Resp BP BP Pulse Ox 07/31/20 08:00 94 H 07/31/20 07:33 37.1 C 96 H 18 110/70 97 07/31/20 06:30 37.2 C 90 20 100/66 94 07/31/20 05:30 36.9 C 96 H 20 104/66 97 07/31/20 05:00 37 C 99 H 20 100/67 95 07/31/20 04:44 37.1 C 102 H 20 104/72 97 07/31/20 04:29 37.1 C 97 H 20 103/70 95 07/31/20 03:12 37.0 C 95 H 18 118/74 98 07/31/20 01:17 36.9 C 92 H 20 103/70 96 07/31/20 01:12 36.9 C 100 H 19 97/67 L 94 07/31/20 00:12 37.2 C 94 H 18 100/68 97 07/30/20 23:42 37.1 C 97 H 18 123/79 98 07/30/20 23:27 37.1 C 97 H 20 116/70 97 07/30/20 23:09 37.1 C 101 H 20 110/72 96 Laboratory Results Abnormal lab results 07/30/20 07/30/20 07/30/20 Range/Units 14:43 14:43 14:43 WBC 13.46 H (4.8-10.8) K/uL RBC 1.82 L (4.2-5.4) M/uL Hgb 6.4 L* (12.0-16.0) g/dL Hct 18.2 L* (37-47) % MCV (80-100) fL MCH 35.2 H (25-34) pg RDW Std Deviation (36.4-46.3) fL RDW Coeff of Christine (11.5-14.5) % MPV (7.4-10.4) fL Neut # (Auto) 11.04 H (1.4-6.5) K/uL [place] # (Auto) 1.00 H (0.11-0.59) K/uL Immature Gran # (Auto) 0.03 H (0.00-0.02) K/uL PT (9.0-12.0) Seconds INR (0.9-1.1) APTT (21.0-31.0) Seconds Sodium (136-145) mmol/L Potassium 2.0 L* (3.5-5.1) mmol/L Chloride 91 L (98-107) mmol/L Carbon Dioxide 34 H (21-32) mmol/L BUN 4 L (7-18) mg/dl BUN/Creatinine Ratio 3.4 L (10-20) Calcium 5.4 L* (8.5-10.1) mg/dl Magnesium 0.6 L* (1.8-2.4) mg/dl Total Bilirubin 6.7 H (0.2-1) mg/dl AST 98 H (15-37) U/L Alkaline Phosphatase 145 H (45-117) U/L NT-Pro-B Natriuret Pep 641 H (0-450) pg/ml Albumin 2.1 L (3.4-5.0) gm/dl Globulin 5.3 H (2.5-4.0) gm/dl Albumin/Globulin Ratio 0.4 L (0.9-2) Lipase 64 L (73-393) U/L Urine Appearance (Clear) Urine Protein (Negative) Urine Blood (Negative) Urine Nitrite (Negative) Urine Bilirubin (Negative) Ur Leukocyte Esterase (Negative) Urine WBC (Auto) (0-5) /hpf Urine RBC (Auto) (0-4) /hpf U Hyaline Cast (Auto) (0-5) /lpf U Epithel Cells (Auto) (0-5) /lpf Urine Bacteria (Auto) (Negative) Antibody Screen POSITIVE A Crossmatch See Detail 07/30/20 07/30/20 07/30/20 Range/Units 14:43 16:40 19:34 WBC (4.8-10.8) K/uL RBC (4.2-5.4) M/uL Hgb (12.0-16.0) g/dL Hct (37-47) % MCV (80-100) fL MCH (25-34) pg RDW Std Deviation (36.4-46.3) fL RDW Coeff of Christine (11.5-14.5) % MPV (7.4-10.4) fL Neut # (Auto) (1.4-6.5) K/uL [place] # (Auto) (0.11-0.59) K/uL Immature Gran # (Auto) (0.00-0.02) K/uL PT 16.6 H (9.0-12.0) Seconds INR 1.6 H (0.9-1.1) APTT 31.9 H (21.0-31.0) Seconds Sodium 135 L (136-145) mmol/L Potassium 2.1 L* (3.5-5.1) mmol/L Chloride 92 L (98-107) mmol/L Carbon Dioxide 34 H (21-32) mmol/L BUN 5 L (7-18) mg/dl BUN/Creatinine Ratio 4.2 L (10-20) Calcium 5.3 L* (8.5-10.1) mg/dl Magnesium 1.3 L (1.8-2.4) mg/dl Total Bilirubin 7.1 H (0.2-1) mg/dl AST 99 H (15-37) U/L Alkaline Phosphatase 142 H (45-117) U/L NT-Pro-B Natriuret Pep (0-450) pg/ml Albumin 2.0 L (3.4-5.0) gm/dl Globulin 5.1 H (2.5-4.0) gm/dl Albumin/Globulin Ratio 0.4 L (0.9-2) Lipase (73-393) U/L Urine Appearance Cloudy A (Clear) Urine Protein 1+ H (Negative) Urine Blood 3+ H (Negative) Urine Nitrite Positive A (Negative) Urine Bilirubin 3+ H (Negative) Ur Leukocyte Esterase Trace H (Negative) Urine WBC (Auto) 10-30 H (0-5) /hpf Urine RBC (Auto) >30 H (0-4) /hpf U Hyaline Cast (Auto) 5-10 H (0-5) /lpf U Epithel Cells (Auto) >30 H (0-5) /lpf Urine Bacteria (Auto) 4+ H (Negative) Antibody Screen Crossmatch 07/30/20 07/31/20 07/31/20 Range/Units 19:34 02:33 02:33 WBC 12.30 H (4.8-10.8) K/uL RBC 1.88 L (4.2-5.4) M/uL Hgb 6.5 L* 6.8 L* (12.0-16.0) g/dL Hct 18.3 L* 19.2 L* (37-47) % MCV 102.1 H (80-100) fL MCH 36.2 H (25-34) pg RDW Std Deviation 78.1 H (36.4-46.3) fL RDW Coeff of Christine 24.6 H (11.5-14.5) % MPV 10.6 H (7.4-10.4) fL Neut # (Auto) 9.90 H (1.4-6.5) K/uL [place] # (Auto) 0.81 H (0.11-0.59) K/uL Immature Gran # (Auto) 0.04 H (0.00-0.02) K/uL PT (9.0-12.0) Seconds INR (0.9-1.1) APTT (21.0-31.0) Seconds Sodium (136-145) mmol/L Potassium 2.3 L* (3.5-5.1) mmol/L Chloride 96 L (98-107) mmol/L Carbon Dioxide 35 H (21-32) mmol/L BUN 5 L (7-18) mg/dl BUN/Creatinine Ratio 4.5 L (10-20) Calcium 5.3 L* (8.5-10.1) mg/dl Magnesium 1.2 L (1.8-2.4) mg/dl Total Bilirubin (0.2-1) mg/dl AST (15-37) U/L Alkaline Phosphatase (45-117) U/L NT-Pro-B Natriuret Pep 579 H (0-450) pg/ml Albumin (3.4-5.0) gm/dl Globulin (2.5-4.0) gm/dl Albumin/Globulin Ratio (0.9-2) Lipase (73-393) U/L Urine Appearance (Clear) Urine Protein (Negative) Urine Blood (Negative) Urine Nitrite (Negative) Urine Bilirubin (Negative) Ur Leukocyte Esterase (Negative) Urine WBC (Auto) (0-5) /hpf Urine RBC (Auto) (0-4) /hpf U Hyaline Cast (Auto) (0-5) /lpf U Epithel Cells (Auto) (0-5) /lpf Urine Bacteria (Auto) (Negative) Antibody Screen Crossmatch Diagnostic Findings CT OF THE ABDOMEN AND PELVIS WITHOUT CONTRAST CLINICAL HISTORY: Abnormal LFTs, anemia COMPARISON STUDY: CT of the abdomen and pelvis April 24, 2020. Right upper quadrant ultrasound July 30, 2020 at 4:48 PM. TECHNIQUE: Axial images of the abdomen and pelvis were obtained without IV contrast. Images were reviewed in the axial, sagittal, and coronal planes. Automated exposure control was utilized for the study. A dose lowering technique was utilized adhering to the principles of ALARA. FINDINGS: Please note that the chest CT will be reported separately. Extensive airspace opacities within the lungs are better depicted on that exam. Marked hepatomegaly is noted. There is severe fatty infiltration of the liver with preferential areas of fatty infiltration within the gallbladder fossa. Moderate splenomegaly is noted. Evaluation of the abdomen and pelvis is suboptimal on this unenhanced examination. Body wall edema is noted. Unenhanced images of the adrenal glands, kidneys and pancreas are normal. There is no pancreatic ductal dilatation. There is no hydronephrosis or hydroureter. The appendix contains hyperdense material but there is no evidence for acute appendicitis. There is minimal mesenteric infiltration. There is no abscess. Mild colonic wall thickening is likely due to underdistention. There is no evidence for a bowel obstruction. There are no suspicious osseous lesions. IMPRESSION: 1. Marked hepatomegaly and severe fatty infiltration of the liver. 2. Moderate splenomegaly. 3. No bowel obstruction. Mild colonic wall thickening is likely due to underdistention. A mild nonspecific colitis could appear similar but is considered less likely. 4. Extensive airspace opacities within the lungs which are better depicted on chest CT. These favor an infectious process. MRCP CLINICAL HISTORY: Elevated bilirubin, common bile duct dilated TECHNIQUE: Utilizing a 1.5 Tawana magnet and dedicated coil, multiplanar, multiecho imaging of the upper abdomen was performed utilizing heavily T2 weighted pulsing sequences without IV contrast. COMPARISON STUDY: CT of the abdomen and pelvis April 24, 2020 and July 30, 2020. Right upper quadrant ultrasound July 30, 2020. FINDINGS: The liver is markedly enlarged, measuring 30.7 cm in cranial caudal dimension. The spleen is moderately enlarged. Better shown on prior CT, there is evidence for severe fatty infiltration of the liver with preferential fatty infiltration within the gallbladder fossa. There is mild dilatation of the common bile duct, measuring 7 mm in caliber. No common bile duct calculi are identified. Sludge within the gallbladder is better shown on prior ultrasound. There is mild gallbladder wall thickening. No peripancreatic infiltration is noted. The course and caliber of the main pancreatic duct is normal. Unenhanced images of the adrenal glands and kidneys are unremarkable. IMPRESSION: 1. Marked hepatomegaly and severe fatty infiltration of the liver. 2. Mild dilatation of the common bile duct, measuring 7 mm. No common bile duct calculi. 3. Gallbladder sludge, better shown on prior ultrasound. Mild gallbladder wall thickening. Although not highly suggestive of acute cholecystitis, a nuclear medicine hepatobiliary scan could be obtained if indicated. 4. Moderate splenomegaly. US gallbladder HISTORY: 40 years-old Female upper abd pain, elevated lfts. Acute right upper quadrant abdominal pain COMPARISON: CT abdomen and pelvis 04/24/2020 TECHNIQUE: Multiple real-time sonographic images of the abdominal right upper quadrant were obtained assessing grayscale appearance and color flow FINDINGS: Study is limited secondary to body habitus. Hepatomegaly with hepatic steatosis. Pancreas is not diagnostically visualized, obscured by bowel gas. Distended sludge-filled gallbladder. No definite shadowing cholelithiasis. Gallbladder measures up to 13.8 cm in length. Mild gallbladder wall thickening measures 4 mm. Sonographic Parnell sign reported as positive. There is no pericholecystic edema/fluid. Common bile duct is dilated measuring 1 cm. No choledocholithiasis identified. Imaged right kidney is unremarkable without hydronephrosis. IMPRESSION: 1. Distended gallbladder with layering sludge, wall thickening and equivocal pericholecystic fluid. No definite shadowing cholelithiasis. Findings could be correlated with nuclear medicine hepatobiliary scan to exclude acute cholecystitis. 2. Distended common bile duct. This finding should be correlated with laboratory analysis to exclude biliary obstruction. 3. Hepatomegaly with hepatic steatosis.
[2020-07-31 10:26] LABS: BUN Creatinine Ratio 5.3 (10-20); Bilirubin,Total 8.1 mg/dl (0.2-1); Calcium 5.4 mg/dl (8.5-10.1); Creatinine Clr Calc Pharmacy 86.6 ml/min; Ferritin 240.4 ng/ml (8-388); Phosphorus 2.2 mg/dl (2.5-4.9); Potassium 2.9 mmol/L (3.5-5.1); Total Protein 7.1 gm/dl (6.4-8.2)
[2020-07-31 10:27] LABS: Hemoglobin 7.7 g/dL (12.0-16.0); Mean Corpuscular Hemoglobin 37.7 pg (25-34); Mean Corpuscular Hgb Conc 36.7 g/dL (32-36); Mean Corpuscular Volume 102.9 fL (80-100); Mean Platelet Volume 10.9 fL (7.4-10.4); Platelet Count 213 K/uL (130-400); RDW Standard Deviation 77.9 fL (36.4-46.3); Red Blood Count 2.04 M/uL (4.2-5.4); White Blood Count 11.29 K/uL (4.8-10.8)
[2020-07-31 10:30] LABS: Agglutinated RBC 1+; Anisocytosis Present; Basophils # (auto) 0.05 K/uL (0-0.2); Basophils % (auto) 0.4 %; Eosinophils # (auto) 0.11 K/uL (0-0.5); Immature Granulocytes # (auto) 0.05 K/uL (0.00-0.02); Immature Granulocytes % (auto) 0.4 %; Lymphocytes % (auto) 11.5 %; Monocytes # (auto) 0.76 K/uL (0.11-0.59); Monocytes % (auto) 6.7 %; Neutrophils # (auto) 9.02 K/uL (1.4-6.5); Target Cells 1+
[2020-07-31 11:42] LABS: Hepatitis B Surface Ab Quant 3.69 mIU/mL (>or=10mIU/mL Immune); Hepatitis B Surface Antibody Non-Immune
[2020-07-31] MEDS ORDERED: LORazepam 0.5 MG TAB PO STA (11:47)
[2020-07-31] MEDS ORDERED: MoRPHine SULFATE 2 MG/ML CARP IV ONE (11:49)
[2020-07-31] MEDS: MAGNESIUM SULFATE / D5W 1 GM/100 ML BAG IV SCH ×4 (11:55→19:25)
[2020-07-31 11:57] LABS: Hepatitis B Surface Antigen Neg (Neg)
[2020-07-31] MEDS ORDERED: CALCIUM GLUCONATE 10% 2,000 MG in SODIUM CHLORIDE 0.9% 50 ML IV ONE ×2 (12:00→18:00)
[2020-07-31] MEDS: NICOTINE 7 MG/24 HR TDSY TD SCH (12:59)
[2020-07-31 13:06] LABS: Folate (Folic Acid) 8.72 ng/ml (>5.38)
--- NOTE | 2020-07-31 13:18 | Pulmonary Consultation ---
Date of Consultation July 31, 2020 Assessment & Plan (1) Pneumonitis: 40-year-old female with a past medical history of tobacco abuse, diastolic CHF, obesity and opiate addiction presenting to the hospital due to increasing shortness of breath. I have seen this patient in the past and did a thoracentesis which yielded a lymphocytic predominant effusion. She has proteinuria and LFT derangements. She is currently being worked up by nephrology and gastroenterology. She has a number of electrolyte derangements. Her unifying diagnosis is still somewhat unclear. From a pulmonary standpoint differential is broad and may include smoking-related interstitial lung disease. I am going to do a bronchoscopy tomorrow with BAL to evaluate for diffuse alveolar hemorrhage. Serological testing has previously been largely unremarkable. Recommend rheumatology consultation. I think in the end that she will likely need a biopsy of either her kidney, liver or lung to help steer us in the direction of the diagnosis. She may need immunosuppressive therapy. I strongly encourage smoking cessation and she noted that she is not interested at this time. Certainly, if this is a smoking-related interstitial lung disease such as RB ILD or DIP, then the treatment would be smoking cessation. We will hold off on steroids at this time given that she is saturating well on 2 L nasal cannula. I do not want potential steroids to impact the bronchoscopy results of biopsy results. Weight loss is encouraged. Sleep study will be beneficial as an outpatient. Pulmonary function testing will be beneficial as well. She can follow-up with her [facility] [place] inspector for outpatient work-up. Pulmonary will continue to follow. Thank you for the consult. (2) Proteinuria: (3) Heart failure with preserved ejection fraction: (4) Elevated liver enzymes: (5) SOB (shortness of breath): (6) Smoker: (7) Morbid obesity: History of Present Illness Reason for Consultation: Acute hypoxemic respiratory failure with an abnormal CT chest. Requesting Physician: Janak Curiel MD Attending Physician: Janak Curiel MD History of Present Illness 40-year-old female with a past medical history diastolic CHF who was recently seen in April 2020 by me for hypoxemic respiratory failure and pleural effusion. She is presenting to the hospital due to shortness of breath with minimal exertion. She notes that she has trouble with her breathing after walking 2-3 steps. She endorses pleurisy upon deep inspiration. She also notes some pain in her right ankle and bruising. She has occasional spasms in her abdomen. She denies any fevers or chills. She continues to smoke 5 to 6 cigarettes a day. She has no intention of quitting. She denies any drug abuse or E cigarettes. Last time she was here she underwent extensive autoimmune serological work-up which was largely negative aside for hepatitis antibodies that were positive. Complement levels were checked which were within normal limits. Echocardiogram at that time demonstrated mildly elevated RVSP. She had a lymphocytic predominant effusion at that time. Unfortunately, she ended up in respiratory failure was intubated and then flown to [facility]. She underwent an echocardiogram there with IV diuresis and was discharged home. She has not followed up with a cafe helper. She sees a [facility] [place] inspector whom she saw 1 time via telehealth. This time she was found to be anemic with a hemoglobin of 6.4, hypokalemic and hypomagnesemic. She also had a low calcium., Testing is negative. She has abnormal LFTs and MRI of the abdomen that showed fatty megaly and steatosis. She is currently undergoing a work-up by nephrology and gastroenterology. HIV testing is pending. She is currently on doxycycline, cefepime. She denies any bird exposures, sick contacts. She denies any cough. 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 She has 1 small dog at home. Denies any feathered pillows or comforter. Allergies Allergy/AdvReac Type Severity Reaction Status Date / Time mushroom Allergy Severe ANAPHYLAXIS Verified 07/30/20 14:38 onion Allergy Severe ANAPHYLAXIS Verified 07/30/20 14:38 tramadol Allergy Mild RASH AND Verified 07/30/20 14:38 ITCHING ketorolac Allergy Unknown RASH Verified 07/30/20 14:38 green peppers Allergy Severe ANAPHYLAXIS Uncoded 07/30/20 14:38 Plasencia Pepper Allergy Unknown ANAPHYLAXIS Uncoded 07/30/20 14:38 FROM GREEN PEPPER Home Medications Home Medications Medication Instructions Recorded Confirmed Type albuterol sulfate 2 puff INHALATION Q4 PRN 04/24/20 07/30/20 History buprenorphine-naloxone 1.5 tab SUBLINGUAL UD 04/24/20 07/30/20 History ferrous sulfate 325 mg PO DAILY 07/30/20 07/30/20 History folic acid 1 mg PO DAILY 07/30/20 07/30/20 History furosemide 40 mg PO DAILY 07/30/20 07/30/20 History metoprolol succinate 25 mg PO DAILY 07/30/20 07/30/20 History Patient History Medical History Heart failure with preserved ejection fraction Hepatomegaly Pleural effusion on left Pleural effusion on right Proteinuria Pulmonary edema Transaminitis Family History Mother Lupus (systemic lupus erythematosus) Social History Smoking Status: Current every day smoker Tobacco Type: Cigarettes Cigarettes Per Day: 10; Do You Dip or Chew Tobacco: No; Hx Alcohol Use: Yes Alcohol type: hard liquor Hx Substance Use: No Preferred Language: Israeli Communication Ability: Effective Youtuber Required: No Beliefs That Will Affect Care: None Current Living Situation: Spouse and Family Other Information That Helps Us Care for You: No Feels Safe at Home: Yes Safety Concerns: Feels Safe At This Time Assistive Devices: BiPap and Oxygen - Continuous Review of Systems Review of Systems: All systems reviewed & are unremarkable except as noted in HPI & below Physical Exam Constitutional: Does not appear to be in any significant physical distress Eyes: PERRL, conjunctivae normal, anicteric sclerae ENMT: external ear and nose normal, oropharynx normal Mallampati Class: III Poor dentition. Neck: normal visual inspection Respiratory: Mild crackles bilaterally. Diminished at the bases. Cardiovascular: 1+ pitting edema in the lower extremities. Regular rate and rhythm. No obvious murmur. Gastrointestinal (Abdomen): normal bowel sounds, soft, nontender, no hepatosplenomegaly Musculoskeletal: no cyanosis or clubbing, extremities motor strength 5/5 Skin: no rashes, warm and dry Neurologic: PERRL, EOMI, accommodation nl, no face palsy, no dysarthria Psychiatric: A+Ox3, euthymic affect Anxious. Results & Data Results & Data ([facility]) Vital Signs (Past 12 Hours) Vital Signs Temp Pulse Pulse Pulse Resp BP BP 07/31/20 11:25 98.4 F 98 H 18 106/75 07/31/20 08:00 94 H 07/31/20 07:33 98.8 F 96 H 18 110/70 07/31/20 06:30 99.0 F 90 20 100/66 07/31/20 05:30 98.4 F 96 H 20 104/66 07/31/20 05:00 98.6 F 99 H 20 100/67 07/31/20 04:44 98.8 F 102 H 20 104/72 07/31/20 04:29 98.8 F 97 H 20 103/70 07/31/20 03:12 98.6 F 95 H 18 118/74 07/31/20 01:17 98.4 F 92 H 20 103/70 07/31/20 01:12 98.4 F 100 H 19 97/67 L Pulse Ox 07/31/20 11:25 95 07/31/20 08:00 07/31/20 07:33 97 07/31/20 06:30 94 07/31/20 05:30 97 07/31/20 05:00 95 07/31/20 04:44 97 07/31/20 04:29 95 07/31/20 03:12 98 07/31/20 01:17 96 07/31/20 01:12 94 I reviewed vital signs, labs and imaging PG Care Time/CCT Total # of Minutes Spent Total Time Spent with Patient: Total time spent is greater than 50% in coordination of care (as documented) at patient's floor/unit and/or counseling patient: Coding Level of Care Code 85384 Inpt Consult Level 5 Diagnoses Pneumonitis J18.9 Proteinuria R80.9 Heart failure with preserved ejection fraction I50.30 Elevated liver enzymes R74.8 SOB (shortness of breath) R06.02 Smoker F17.200 Morbid obesity E66.01
[2020-07-31] MEDS ORDERED: LORazepam 0.5 MG/1 ML VIAL IV ONE (13:30)
--- NOTE | 2020-07-31 14:25 | Ultrasound Report ---
RIGHT LOWER EXTREMITY VENOUS DOPPLER CLINICAL HISTORY: Right lower extremity edema. COMPARISON STUDY: No previous studies for comparison. TECHNIQUE: Sonography of the deep venous system of the right lower extremity was performed. Compress ion and augmentation were evaluated. FINDINGS: The right common femoral, superficial femoral and popliteal veins were compressible. Augme ntation was normal. Flow was shown within the deep calf vessels. IMPRESSION: No evidence of deep venous thrombus within the right lower extremity. ACT 112: Negative or not required by law. Electronically signed by: Vitor Rodriguez M.D. 07/31/2020 2:24 PM
[2020-07-31] MEDS ORDERED: Nursing to Pharmacy Communication SCH (16:00)
[2020-07-31 16:31] LABS: Hemoglobin 7.7 g/dL (12.0-16.0)
[2020-07-31 16:38] LABS: Calcium 6.1 mg/dl (8.5-10.1); Creatinine Clr Calc Pharmacy 87.5 ml/min; Est GFR (African American) 88.1; Phosphorus 2.1 mg/dl (2.5-4.9); Potassium 3.2 mmol/L (3.5-5.1)
[2020-07-31] MEDS ORDERED: MoRPHine SULFATE 2 MG/ML CARP ONE (17:38)
--- NOTE | 2020-07-31 17:47 | Nuclear Medicine Report ---
NUCLEAR MEDICINE HEPATOBILIARY SCAN CLINICAL HISTORY: Abnormal liver function tests. Abnormal CT and ultrasound. COMPARISON: Right upper quadrant ultrasound, CT and MRCP July 30, 2020. TECHNIQUE: 5.4 mCi of technetium 99m Choletec IV was injected at 4:35 PM on July 31, 2020. Imm ediately following injection, imaging of the abdomen was carried out for 60 minutes in the anterior p rojection. FINDINGS: The liver is enlarged. Hepatic uptake of radiotracer is prompt and homogeneous. Activity i s identified within the common bile duct at 15 minutes. Small bowel activity is noted at 20 minutes. Gallbladder activity is noted at 15 minutes. IMPRESSION: 1. No evidence for acute cholecystitis. 2. Hepatomegaly. 3. Mildly delayed excretion of radiotracer into the common bile duct which could be due to hepatic dy sfunction. ACT 112: Negative or not required by law. Electronically signed by: Vitor Rodriguez M.D. 07/31/2020 5:46 PM
--- NOTE | 2020-07-31 18:40 | Hospitalist Progress Note ---
Date of Service July 31, 2020 Assessment & Plan (1) SOB (shortness of breath): SHORTNESS OF BREATH, MULTIFACTORIAL: INTERSTITIAL LUNG DISEASE? Pulm consulted BAL tomorrow PNEUMONIA? Ceftri + Doxy ANEMIA, MACROCYTIC 2 units PRBC ordered will order peripheral smear CHF EXACERBATION UNLIKELY euvolemic DIRECT BILIRUBINEMIA MRCP: no biliary obstruction HIDA scan: negative may need Liver Biopsy per GI ELEVATED INR likely coagulopathy from underlying liver disease no signs of bleeding monitor LOW K, CA, MAG from poor oral intake continue repletion and monitoring Nephro on Board PROTEINURIA repeat studies ordered may need renal biopsy per Nephro UNDERLYING AUTOIMMUNE PROCESS? will consult Rheum ELEVATED QT INTERVAL from electrolyte disturbance monitor r/o UTI ff up cultures on Ceftri, Doxy Admission and Anticipated Discharge Date Admission Date: July 30, 2020 Subjective ff up for dyspnea on exertion, etc seen resting in bed, comfortable on 2 L o2 via nasal cannula states breathing seems to be improving somewhat has dry cough, no fever/chills denies abdominal pain, nausea/vomiting on exam denies melena/hematochezia no problems with urination no other symptoms Review of Systems Review of Systems: All systems reviewed & are unremarkable except as noted in Subjective Physical Exam Physical Exam: General- oriented x 3, not in distress, speaks in sentences with no effort or accessory muscle use Head- atraumatic Eyes- PERRL, EOMI, (+) icterus ENT- oropharynx clear, poor dentition Neck- supple, no JVD, no adenopathy, no thyromegaly; carotids +2/2, no bruits appreciated Lungs- diminished but clear to auscultation bilaterally, no rales/wheezes Heart- normal rate, regular rhythm; no murmur, no gallop, no rub appreciated Abdomen- normal bowel sounds, nondistended, soft, nontender, no masses or hepatosplenomegaly Extremities- mild RLE pretibial edema, no calf tenderness; peripheral pulses intact Neuro- alert, oriented x 3; CN 2-12 grossly intact; motor 5/5 bilaterally;sensation 100% on all extremities; no other gross focal neurologic deficits Skin- warm & dry Results & Data Results & Data ([facility]) Vital Signs (Past 12 Hours) Vital Signs Temp Pulse Pulse Pulse Resp BP BP 07/31/20 18:19 92 H 07/31/20 16:00 37.3 C 106 H 20 104/66 07/31/20 11:25 36.9 C 98 H 18 07/31/20 08:00 94 H 07/31/20 07:33 37.1 C 96 H 18 110/70 BP Pulse Ox 07/31/20 18:19 07/31/20 16:00 94 07/31/20 11:25 106/75 95 07/31/20 08:00 07/31/20 07:33 97 Laboratory Results Laboratory Results - last 24 hr 07/30/20 07/30/20 07/30/20 14:43 14:43 18:50 WBC RBC Hgb Hct MCV MCH MCHC RDW Std Deviation RDW Coeff of Christine Plt Count MPV Immature Gran % (Auto) Neut % (Auto) Lymph % (Auto) [place] % (Auto) Eos % (Auto) Baso % (Auto) Neut # (Auto) Lymph # (Auto) [place] # (Auto) Eos # (Auto) Baso # (Auto) Immature Gran # (Auto) Anisocytosis Target Cells RBC Agglutinates Sodium Potassium Chloride Carbon Dioxide Anion Gap BUN Creatinine Est Cr Clr Drug Dosing Est GFR ( Amer) Est GFR (Non-Af Amer) BUN/Creatinine Ratio Glucose Fasting Glucose Calcium Phosphorus Magnesium Iron TIBC Transferrin Ferritin Total Bilirubin Direct Bilirubin AST ALT Alkaline Phosphatase NT-Pro-B Natriuret Pep Total Protein Albumin Globulin Albumin/Globulin Ratio [id number]-[id number]-Flvetfkkaau Ceruloplasmin Lipase 64 L Vitamin B12 Folate Procalcitonin Nasal Screen MRSA (PCR) Stool Occult Bld Scrn Stl C. diff Tox B Gene Urine Immunofixation Free [place] LC, Quant Free Lambda LC, Quant Free [place]/Lambda Ratio Adenovirus (PCR) Not Detected B. pertussis DNA (PCR) Not Detected B.parapertussis DNA PCR Not Detected C. pneumoniae DNA (PCR) Not Detected Coronavirus OC43 (PCR) Not Detected Coronavirus HKU1 (PCR) Not Detected Coronavirus 229E (PCR) Not Detected COVID-19 PCR Not Detected Coronavirus NL63 (PCR) Not Detected Hepatitis A IgM Ab Hepatitis A Ab Total Hep Bs Antigen Hep Bs Antibody Hep Bs Antibody, Quant Hep B Core IgM Ab Hep B DNA Qnt log IU/mL Hep B DNA (IU/mL) Hepatitis Be Antibody Hepatitis Be Antigen HIV 1&2 Ab/P24 Ag 4thGn Human Metapneumovir PCR Not Detected Influenza Type A (PCR) Not Detected Influenza Type B (PCR) Not Detected M. pneumoniae (PCR) Not Detected Parainfluenza 1 (PCR) Not Detected Parainfluenza 2 (PCR) Not Detected Parainfluenza 3 (PCR) Not Detected Parainfluenza 4 (PCR) Not Detected RSV (PCR) Not Detected Entero/Rhino (PCR) Not Detected Beta-(1,3)-D-Glucan B-(1,3)-D-Glucan Intrp Blood Type A Positive Antibody Screen POSITIVE A Antibody Identification Anti-I Antibody ID Comment Pending Direct Antiglob Test Positive A CHRIS (IgG-AHG) Neg CHRIS, Polyspecific Weak Pos A CHRIS C3b, C3d 5 Min Weak Pos A Crossmatch See Detail 07/30/20 07/30/20 07/30/20 18:50 19:34 19:34 WBC RBC Hgb 6.5 L* Hct 18.3 L* MCV MCH MCHC RDW Std Deviation RDW Coeff of Christine Plt Count MPV Immature Gran % (Auto) Neut % (Auto) Lymph % (Auto) [place] % (Auto) Eos % (Auto) Baso % (Auto) Neut # (Auto) Lymph # (Auto) [place] # (Auto) Eos # (Auto) Baso # (Auto) Immature Gran # (Auto) Anisocytosis Target Cells RBC Agglutinates Sodium 135 L Potassium 2.1 L* Chloride 92 L Carbon Dioxide 34 H Anion Gap 11.0 BUN 5 L Creatinine 1.13 Est Cr Clr Drug Dosing 73.5 Est GFR ( Amer) 71.4 Est GFR (Non-Af Amer) 61.6 BUN/Creatinine Ratio 4.2 L Glucose 94 Fasting Glucose Calcium 5.3 L* Phosphorus Magnesium 1.3 L Iron TIBC Transferrin Ferritin Total Bilirubin 7.1 H Direct Bilirubin AST 99 H ALT 23 Alkaline Phosphatase 142 H NT-Pro-B Natriuret Pep Total Protein 7.1 Albumin 2.0 L Globulin 5.1 H Albumin/Globulin Ratio 0.4 L Lfggx-8-Qdmuykoepvc Ceruloplasmin Lipase Vitamin B12 Folate Procalcitonin Nasal Screen MRSA (PCR) Negative Stool Occult Bld Scrn Stl C. diff Tox B Gene Urine Immunofixation Free [place] LC, Quant Free Lambda LC, Quant Free [place]/Lambda Ratio Adenovirus (PCR) B. pertussis DNA (PCR) B.parapertussis DNA PCR C. pneumoniae DNA (PCR) Coronavirus OC43 (PCR) Coronavirus HKU1 (PCR) Coronavirus 229E (PCR) COVID-19 PCR Coronavirus NL63 (PCR) Hepatitis A IgM Ab Hepatitis A Ab Total Hep Bs Antigen Hep Bs Antibody Hep Bs Antibody, Quant Hep B Core IgM Ab Hep B DNA Qnt log IU/mL Hep B DNA (IU/mL) Hepatitis Be Antibody Hepatitis Be Antigen HIV 1&2 Ab/P24 Ag 4thGn Human Metapneumovir PCR Influenza Type A (PCR) Influenza Type B (PCR) M. pneumoniae (PCR) Parainfluenza 1 (PCR) Parainfluenza 2 (PCR) Parainfluenza 3 (PCR) Parainfluenza 4 (PCR) RSV (PCR) Entero/Rhino (PCR) Beta-(1,3)-D-Glucan B-(1,3)-D-Glucan Intrp Blood Type Antibody Screen Antibody Identification Antibody ID Comment Direct Antiglob Test CHRIS (IgG-AHG) CHRIS, Polyspecific CHRIS C3b, C3d 5 Min Crossmatch 07/31/20 07/31/20 07/31/20 02:33 02:33 03:15 WBC 12.30 H RBC 1.88 L Hgb 6.8 L* Hct 19.2 L* MCV 102.1 H MCH 36.2 H MCHC 35.4 RDW Std Deviation 78.1 H RDW Coeff of Christine 24.6 H Plt Count 213 MPV 10.6 H Immature Gran % (Auto) 0.3 Neut % (Auto) 80.5 Lymph % (Auto) 11.4 [place] % (Auto) 6.6 Eos % (Auto) 1.0 Baso % (Auto) 0.2 Neut # (Auto) 9.90 H Lymph # (Auto) 1.40 [place] # (Auto) 0.81 H Eos # (Auto) 0.12 Baso # (Auto) 0.03 Immature Gran # (Auto) 0.04 H Anisocytosis Present Target Cells 1+ RBC Agglutinates Sodium 138 Potassium 2.3 L* Chloride 96 L Carbon Dioxide 35 H Anion Gap 7.0 BUN 5 L Creatinine 1.01 Est Cr Clr Drug Dosing 82.3 Est GFR ( Amer) 81.8 Est GFR (Non-Af Amer) 70.6 BUN/Creatinine Ratio 4.5 L Glucose 83 Fasting Glucose Calcium 5.3 L* Phosphorus Magnesium 1.2 L Iron TIBC Transferrin Ferritin Total Bilirubin Direct Bilirubin AST ALT Alkaline Phosphatase NT-Pro-B Natriuret Pep 579 H Total Protein Albumin Globulin Albumin/Globulin Ratio Japhv-0-Crnvuxukpbv Ceruloplasmin Lipase Vitamin B12 Folate Procalcitonin Nasal Screen MRSA (PCR) Stool Occult Bld Scrn Negative Stl C. diff Tox B Gene Urine Immunofixation Free [place] LC, Quant Free Lambda LC, Quant Free [place]/Lambda Ratio Adenovirus (PCR) B. pertussis DNA (PCR) B.parapertussis DNA PCR C. pneumoniae DNA (PCR) Coronavirus OC43 (PCR) Coronavirus HKU1 (PCR) Coronavirus 229E (PCR) COVID-19 PCR Coronavirus NL63 (PCR) Hepatitis A IgM Ab Hepatitis A Ab Total Hep Bs Antigen Hep Bs Antibody Hep Bs Antibody, Quant Hep B Core IgM Ab Hep B DNA Qnt log IU/mL Hep B DNA (IU/mL) Hepatitis Be Antibody Hepatitis Be Antigen HIV 1&2 Ab/P24 Ag 4thGn Human Metapneumovir PCR Influenza Type A (PCR) Influenza Type B (PCR) M. pneumoniae (PCR) Parainfluenza 1 (PCR) Parainfluenza 2 (PCR) Parainfluenza 3 (PCR) Parainfluenza 4 (PCR) RSV (PCR) Entero/Rhino (PCR) Beta-(1,3)-D-Glucan B-(1,3)-D-Glucan Intrp Blood Type Antibody Screen Antibody Identification Antibody ID Comment Direct Antiglob Test CHRIS (IgG-AHG) CHRIS, Polyspecific CHRIS C3b, C3d 5 Min Crossmatch 07/31/20 07/31/20 07/31/20 03:15 09:38 09:38 WBC 11.29 H RBC 2.04 L Hgb 7.7 L Hct 21.0 L MCV 102.9 H MCH 37.7 H MCHC 36.7 H RDW Std Deviation 77.9 H RDW Coeff of Christine 26.0 H Plt Count 213 MPV 10.9 H Immature Gran % (Auto) 0.4 Neut % (Auto) 80.0 Lymph % (Auto) 11.5 [place] % (Auto) 6.7 Eos % (Auto) 1.0 Baso % (Auto) 0.4 Neut # (Auto) 9.02 H Lymph # (Auto) 1.30 [place] # (Auto) 0.76 H Eos # (Auto) 0.11 Baso # (Auto) 0.05 Immature Gran # (Auto) 0.05 H Anisocytosis Present Target Cells 1+ RBC Agglutinates 1+ Sodium Cancelled Potassium Cancelled Chloride Cancelled Carbon Dioxide Cancelled Anion Gap Cancelled BUN Cancelled Creatinine Cancelled Est Cr Clr Drug Dosing Cancelled Est GFR ( Amer) Cancelled Est GFR (Non-Af Amer) Cancelled BUN/Creatinine Ratio Cancelled Glucose Cancelled Fasting Glucose Calcium Cancelled Phosphorus Magnesium Iron TIBC Transferrin Ferritin Total Bilirubin Direct Bilirubin AST ALT Alkaline Phosphatase NT-Pro-B Natriuret Pep Total Protein Albumin Globulin Albumin/Globulin Ratio Floig-8-Vqlkvhuiqrr Ceruloplasmin Lipase Vitamin B12 Folate Procalcitonin Nasal Screen MRSA (PCR) Stool Occult Bld Scrn Stl C. diff Tox B Gene Negative Cdiff Gene Urine Immunofixation Free [place] LC, Quant Free Lambda LC, Quant Free [place]/Lambda Ratio Adenovirus (PCR) B. pertussis DNA (PCR) B.parapertussis DNA PCR C. pneumoniae DNA (PCR) Coronavirus OC43 (PCR) Coronavirus HKU1 (PCR) Coronavirus 229E (PCR) COVID-19 PCR Coronavirus NL63 (PCR) Hepatitis A IgM Ab Hepatitis A Ab Total Hep Bs Antigen Hep Bs Antibody Hep Bs Antibody, Quant Hep B Core IgM Ab Hep B DNA Qnt log IU/mL Hep B DNA (IU/mL) Hepatitis Be Antibody Hepatitis Be Antigen HIV 1&2 Ab/P24 Ag 4thGn Human Metapneumovir PCR Influenza Type A (PCR) Influenza Type B (PCR) M. pneumoniae (PCR) Parainfluenza 1 (PCR) Parainfluenza 2 (PCR) Parainfluenza 3 (PCR) Parainfluenza 4 (PCR) RSV (PCR) Entero/Rhino (PCR) Beta-(1,3)-D-Glucan B-(1,3)-D-Glucan Intrp Blood Type Antibody Screen Antibody Identification Antibody ID Comment Direct Antiglob Test CHRIS (IgG-AHG) CHRIS, Polyspecific CHRIS C3b, C3d 5 Min Crossmatch 07/31/20 07/31/20 07/31/20 09:38 09:38 09:38 WBC RBC Hgb Hct MCV MCH MCHC RDW Std Deviation RDW Coeff of Christine Plt Count MPV Immature Gran % (Auto) Neut % (Auto) Lymph % (Auto) [place] % (Auto) Eos % (Auto) Baso % (Auto) Neut # (Auto) Lymph # (Auto) [place] # (Auto) Eos # (Auto) Baso # (Auto) Immature Gran # (Auto) Anisocytosis Target Cells RBC Agglutinates Sodium 138 Potassium 2.9 L D Chloride 98 Carbon Dioxide 33 H Anion Gap 7.0 BUN 5 L Creatinine 0.96 Est Cr Clr Drug Dosing 86.6 Est GFR ( Amer) 87.0 Est GFR (Non-Af Amer) 75.0 BUN/Creatinine Ratio 5.3 L Glucose 82 Fasting Glucose Calcium 5.4 L* Phosphorus 2.2 L Magnesium Iron 211 H TIBC 205 L Transferrin 160 L Ferritin 240.4 Total Bilirubin 8.1 H Direct Bilirubin 6.0 H AST 89 H ALT 21 Alkaline Phosphatase 141 H NT-Pro-B Natriuret Pep Total Protein 7.1 Albumin 2.0 L Globulin Albumin/Globulin Ratio Akhui-2-Ggwhudqbzud Pending Ceruloplasmin Pending Lipase Vitamin B12 Folate Procalcitonin Nasal Screen MRSA (PCR) Stool Occult Bld Scrn Stl C. diff Tox B Gene Urine Immunofixation Free [place] LC, Quant Pending Free Lambda LC, Quant Pending Free [place]/Lambda Ratio Pending Adenovirus (PCR) B. pertussis DNA (PCR) B.parapertussis DNA PCR C. pneumoniae DNA (PCR) Coronavirus OC43 (PCR) Coronavirus HKU1 (PCR) Coronavirus 229E (PCR) COVID-19 PCR Coronavirus NL63 (PCR) Hepatitis A IgM Ab Pending Hepatitis A Ab Total Pending Hep Bs Antigen Neg Hep Bs Antibody Non-Immune Hep Bs Antibody, Quant 3.69 L Hep B Core IgM Ab Pending Hep B DNA Qnt log IU/mL Pending Hep B DNA (IU/mL) Pending Hepatitis Be Antibody Pending Hepatitis Be Antigen Pending HIV 1&2 Ab/P24 Ag 4thGn Human Metapneumovir PCR Influenza Type A (PCR) Influenza Type B (PCR) M. pneumoniae (PCR) Parainfluenza 1 (PCR) Parainfluenza 2 (PCR) Parainfluenza 3 (PCR) Parainfluenza 4 (PCR) RSV (PCR) Entero/Rhino (PCR) Beta-(1,3)-D-Glucan B-(1,3)-D-Glucan Intrp Blood Type Antibody Screen Antibody Identification Antibody ID Comment Direct Antiglob Test CHRIS (IgG-AHG) CHRIS, Polyspecific CHRIS C3b, C3d 5 Min Crossmatch 07/31/20 07/31/20 07/31/20 09:38 09:38 09:38 WBC RBC Hgb Hct MCV MCH MCHC RDW Std Deviation RDW Coeff of Christine Plt Count MPV Immature Gran % (Auto) Neut % (Auto) Lymph % (Auto) [place] % (Auto) Eos % (Auto) Baso % (Auto) Neut # (Auto) Lymph # (Auto) [place] # (Auto) Eos # (Auto) Baso # (Auto) Immature Gran # (Auto) Anisocytosis Target Cells RBC Agglutinates Sodium Potassium Chloride Carbon Dioxide Anion Gap BUN Creatinine Est Cr Clr Drug Dosing Est GFR ( Amer) Est GFR (Non-Af Amer) BUN/Creatinine Ratio Glucose Fasting Glucose Calcium Phosphorus Magnesium Iron TIBC Transferrin Ferritin Total Bilirubin Direct Bilirubin AST ALT Alkaline Phosphatase NT-Pro-B Natriuret Pep Total Protein Albumin Globulin Albumin/Globulin Ratio Kjpxp-9-Xdnwhcswwhk Ceruloplasmin Lipase Vitamin B12 1523 H Folate Cancelled 8.72 Procalcitonin 0.45 Nasal Screen MRSA (PCR) Stool Occult Bld Scrn Stl C. diff Tox B Gene Urine Immunofixation Free [place] LC, Quant Free Lambda LC, Quant Free [place]/Lambda Ratio Adenovirus (PCR) B. pertussis DNA (PCR) B.parapertussis DNA PCR C. pneumoniae DNA (PCR) Coronavirus OC43 (PCR) Coronavirus HKU1 (PCR) Coronavirus 229E (PCR) COVID-19 PCR Coronavirus NL63 (PCR) Hepatitis A IgM Ab Hepatitis A Ab Total Hep Bs Antigen Hep Bs Antibody Hep Bs Antibody, Quant Hep B Core IgM Ab Hep B DNA Qnt log IU/mL Hep B DNA (IU/mL) Hepatitis Be Antibody Hepatitis Be Antigen HIV 1&2 Ab/P24 Ag 4thGn Human Metapneumovir PCR Influenza Type A (PCR) Influenza Type B (PCR) M. pneumoniae (PCR) Parainfluenza 1 (PCR) Parainfluenza 2 (PCR) Parainfluenza 3 (PCR) Parainfluenza 4 (PCR) RSV (PCR) Entero/Rhino (PCR) Beta-(1,3)-D-Glucan B-(1,3)-D-Glucan Intrp Blood Type Antibody Screen Antibody Identification Antibody ID Comment Direct Antiglob Test CHRIS (IgG-AHG) CHRIS, Polyspecific CHRIS C3b, C3d 5 Min Crossmatch 07/31/20 07/31/20 07/31/20 09:38 09:38 12:34 WBC RBC Hgb Hct MCV MCH MCHC RDW Std Deviation RDW Coeff of Christine Plt Count MPV Immature Gran % (Auto) Neut % (Auto) Lymph % (Auto) [place] % (Auto) Eos % (Auto) Baso % (Auto) Neut # (Auto) Lymph # (Auto) [place] # (Auto) Eos # (Auto) Baso # (Auto) Immature Gran # (Auto) Anisocytosis Target Cells RBC Agglutinates Sodium Potassium Chloride Carbon Dioxide Anion Gap BUN Creatinine Est Cr Clr Drug Dosing Est GFR ( Amer) Est GFR (Non-Af Amer) BUN/Creatinine Ratio Glucose Fasting Glucose Calcium Phosphorus Magnesium 1.3 L Iron TIBC Transferrin Ferritin Total Bilirubin Direct Bilirubin AST ALT Alkaline Phosphatase NT-Pro-B Natriuret Pep Total Protein Albumin Globulin Albumin/Globulin Ratio Prtzk-9-Hukrtjrjcmt Ceruloplasmin Lipase Vitamin B12 Folate Procalcitonin Nasal Screen MRSA (PCR) Stool Occult Bld Scrn Stl C. diff Tox B Gene Urine Immunofixation Pending Free [place] LC, Quant Free Lambda LC, Quant Free [place]/Lambda Ratio Adenovirus (PCR) B. pertussis DNA (PCR) B.parapertussis DNA PCR C. pneumoniae DNA (PCR) Coronavirus OC43 (PCR) Coronavirus HKU1 (PCR) Coronavirus 229E (PCR) COVID-19 PCR Coronavirus NL63 (PCR) Hepatitis A IgM Ab Hepatitis A Ab Total Hep Bs Antigen Hep Bs Antibody Hep Bs Antibody, Quant Hep B Core IgM Ab Hep B DNA Qnt log IU/mL Hep B DNA (IU/mL) Hepatitis Be Antibody Hepatitis Be Antigen HIV 1&2 Ab/P24 Ag 4thGn Neg Human Metapneumovir PCR Influenza Type A (PCR) Influenza Type B (PCR) M. pneumoniae (PCR) Parainfluenza 1 (PCR) Parainfluenza 2 (PCR) Parainfluenza 3 (PCR) Parainfluenza 4 (PCR) RSV (PCR) Entero/Rhino (PCR) Beta-(1,3)-D-Glucan B-(1,3)-D-Glucan Intrp Blood Type Antibody Screen Antibody Identification Antibody ID Comment Direct Antiglob Test CHRIS (IgG-AHG) CHRIS, Polyspecific CHRIS C3b, C3d 5 Min Crossmatch 07/31/20 07/31/20 07/31/20 16:04 16:04 16:04 WBC RBC Hgb 7.7 L Hct 22.0 L MCV MCH MCHC RDW Std Deviation RDW Coeff of Christine Plt Count MPV Immature Gran % (Auto) Neut % (Auto) Lymph % (Auto) [place] % (Auto) Eos % (Auto) Baso % (Auto) Neut # (Auto) Lymph # (Auto) [place] # (Auto) Eos # (Auto) Baso # (Auto) Immature Gran # (Auto) Anisocytosis Target Cells RBC Agglutinates Sodium 137 Potassium 3.2 L Chloride 99 Carbon Dioxide 28 Anion Gap 10.0 BUN 6 L Creatinine 0.95 Est Cr Clr Drug Dosing 87.5 Est GFR ( Amer) 88.1 Est GFR (Non-Af Amer) 76.0 BUN/Creatinine Ratio Glucose Fasting Glucose 85 Calcium 6.1 L Phosphorus 2.1 L Magnesium Iron TIBC Transferrin Ferritin Total Bilirubin Direct Bilirubin AST ALT Alkaline Phosphatase NT-Pro-B Natriuret Pep Total Protein Albumin Globulin Albumin/Globulin Ratio Fjohx-9-Nncccupixzt Ceruloplasmin Lipase Vitamin B12 Folate Procalcitonin Nasal Screen MRSA (PCR) Stool Occult Bld Scrn Stl C. diff Tox B Gene Urine Immunofixation Free [place] LC, Quant Free Lambda LC, Quant Free [place]/Lambda Ratio Adenovirus (PCR) B. pertussis DNA (PCR) B.parapertussis DNA PCR C. pneumoniae DNA (PCR) Coronavirus OC43 (PCR) Coronavirus HKU1 (PCR) Coronavirus 229E (PCR) COVID-19 PCR Coronavirus NL63 (PCR) Hepatitis A IgM Ab Hepatitis A Ab Total Hep Bs Antigen Hep Bs Antibody Hep Bs Antibody, Quant Hep B Core IgM Ab Hep B DNA Qnt log IU/mL Hep B DNA (IU/mL) Hepatitis Be Antibody Hepatitis Be Antigen HIV 1&2 Ab/P24 Ag 4thGn Human Metapneumovir PCR Influenza Type A (PCR) Influenza Type B (PCR) M. pneumoniae (PCR) Parainfluenza 1 (PCR) Parainfluenza 2 (PCR) Parainfluenza 3 (PCR) Parainfluenza 4 (PCR) RSV (PCR) Entero/Rhino (PCR) Beta-(1,3)-D-Glucan Pending B-(1,3)-D-Glucan Intrp Pending Blood Type Antibody Screen Antibody Identification Antibody ID Comment Direct Antiglob Test CHRIS (IgG-AHG) CHRIS, Polyspecific CHRIS C3b, C3d 5 Min Crossmatch
--- NOTE | 2020-07-31 19:14 | XRay Report ---
XR chest 1V portable CLINICAL HISTORY: Hypoxia COMPARISON STUDY: Chest radiograph and chest CT July 30, 2020. FINDINGS: There is no pneumothorax. There is a small right pleural effusion. Extensive bilateral cons olidation within the lungs has progressed since prior chest radiograph and chest CT. There is mild en largement of the cardiac silhouette, accentuated on this portable AP exam. IMPRESSION: 1. Progression of extensive bilateral airspace opacities. This may reflect pneumonia or pulmonary delia ma. 2. Small right pleural effusion. ACT 112: Negative or not required by law. Electronically signed by: Vitor Rodriguez M.D. 07/31/2020 7:13 PM
[2020-07-31] MEDS: LORazepam 0.5 MG TAB PO PRN (22:18)
[2020-07-31 23:55] LABS: BUN Creatinine Ratio 6.9 (10-20); Calcium 5.9 mg/dl (8.5-10.1); Est GFR (African American) 83.8; Est GFR (Non-African American) 72.3; Magnesium 2.2 mg/dl (1.8-2.4); Phosphorus 1.7 mg/dl (2.5-4.9); Potassium 3.4 mmol/L (3.5-5.1)
[2020-08-01] MEDS ORDERED: POTASSIUM PHOS 3 MMOL/1 ML INFUSION IV STA (00:01)
[2020-08-01] MEDS ORDERED: POTASSIUM PHOSPHATE 40 MMOL in SODIUM CHLORIDE 0.9% 1000ML 1,000 ML IV ONE (00:15)
[2020-08-01 00:17] LABS: Albumin Level 1.9 gm/dl (3.4-5.0)
[2020-08-01] MEDS ORDERED: CALCIUM GLUCONATE 10% 2,000 MG in 0.9 % SODIUM CHLORIDE 100 ML IV ONE (00:25)
[2020-08-01] MEDS: POTASSIUM CHLORIDE 20 MEQ TABCR PO STA ×2 (00:34→00:40)
[2020-08-01] MEDS: CEFEPIME 2,000 MG in SYRINGE 0 ML IV SCH ×3 (01:02→17:22)
[2020-08-01] MEDS ORDERED: LORazepam 0.5 MG/1 ML VIAL IV SCH (06:00)
[2020-08-01] MEDS: DOXYCYCLINE HYCLATE 100 MG in DEXTROSE 5% 100 ML IV SCH ×2 (06:48→20:28)
[2020-08-01 06:58] LABS: INR 1.4 (0.9-1.1); Prothrombin Time 14.6 Seconds (9.0-12.0)
[2020-08-01] MEDS: FERROUS SULFATE 325 MG TAB PO SCH (07:49)
[2020-08-01] MEDS: NICOTINE 7 MG/24 HR TDSY TD SCH (07:50)
[2020-08-01] MEDS: FOLIC ACID 1 MG TAB PO SCH (07:50)
[2020-08-01] MEDS ORDERED: FUROSEMIDE 40 MG/4 ML VIAL IV ONE (08:30)
[2020-08-01] MEDS ORDERED: FUROSEMIDE 20 MG in SYRINGE 0 ML IV ONE (08:31)
[2020-08-01] MEDS ORDERED: XOPENEX/ATROVENT 1.25mg/0.5MG NEB COMBO NEB PRN (08:31)
[2020-08-01] MEDS: LEVALBUTEROL 1.25MG/0.5ML NEB INH PRN ×2 (08:39→19:32)
[2020-08-01] MEDS: IPRATROPIUM BROMIDE NEB SOLN 0.02% 2.5 ML VIAL INH PRN ×2 (08:40→19:32)
[2020-08-01] MEDS: LORazepam 0.5 MG TAB PO PRN ×2 (09:05→20:56)
[2020-08-01 09:25] LABS: Albumin Globulin Ratio 0.4 (0.9-2); Albumin Level 1.8 gm/dl (3.4-5.0); BUN Creatinine Ratio 7.9 (10-20); Bilirubin,Total 7.3 mg/dl (0.2-1); Calcium 6.6 mg/dl (8.5-10.1); Creatinine Clr Calc Pharmacy 91.9 ml/min; Est GFR (African American) 92.8; Globulin 4.9 gm/dl (2.5-4.0); Potassium 3.2 mmol/L (3.5-5.1); Total Protein 6.7 gm/dl (6.4-8.2)
--- NOTE | 2020-08-01 09:26 | History & Physical Bridge Note ---
Date of Service August 01, 2020 History & Physical Bridge Note I have examined the patient, reviewed the History & Physical and in the interval since the performance of the History & Physical I have noted the following changes of clinical significance: no changes noted
--- NOTE | 2020-08-01 09:28 | Pre Anesthesia Assessment ---
Date of Service August 01, 2020 Pre Sedation Assessment Vital Signs Temp Pulse Pulse Pulse Resp BP BP 08/01/20 08:41 102 H 16 08/01/20 07:24 99.3 F 102 H 19 101/69 08/01/20 03:36 99.0 F 98 H 19 101/68 07/31/20 22:59 98.8 F 101 H 19 114/75 07/31/20 19:34 98.8 F 94 H 19 108/72 07/31/20 18:19 92 H 07/31/20 16:00 99.1 F 106 H 20 104/66 07/31/20 11:25 98.4 F 98 H 18 106/75 Pulse Ox 08/01/20 08:41 92 08/01/20 07:24 97 08/01/20 03:36 96 07/31/20 22:59 94 07/31/20 19:34 99 07/31/20 18:19 07/31/20 16:00 94 07/31/20 11:25 95 Pre-Sedation Airway Assessment Smoking Status: Current every day smoker Hx Sleep Apnea: No Short, Thick Neck: Yes Thyromental Distance: > or= 3.5 Finger Breadths Oral Cavity: + Chipped Teeth Mallampati Class: II ASA: ASA2 NPO Status Date of Last Intake of Fluids: 07/31/20 Time of Last Intake of Fluids: 21:30 Date of Last Intake of Solid Food: 07/31/20 Time of Last Intake of Solid Foods: 21:30 Notes The planned sedation has been discussed with the patient. Informed Consent was obtained. I have identified the patient, determined the appropriateness of sedation and have assessed the patient immediately prior to the procedure. All medicine(s) and interventions are by my order.
[2020-08-01 09:30] LABS: Agglutinated RBC 2+; Basophils # (auto) 0.04 K/uL (0-0.2); Basophils % (auto) 0.3 %; Eosinophils # (auto) 0.11 K/uL (0-0.5); Eosinophils % (auto) 0.9 %; Hematocrit (blood only) 20.6 % (37-47); Immature Granulocytes # (auto) 0.04 K/uL (0.00-0.02); Immature Granulocytes % (auto) 0.3 %; Lymphocytes # (auto) 1.56 K/uL (1.2-3.4); Mean Corpuscular Hemoglobin 33.8 pg (25-34); Mean Corpuscular Volume 99.5 fL (80-100); Mean Platelet Volume 10.9 fL (7.4-10.4); Monocytes # (auto) 0.55 K/uL (0.11-0.59); Monocytes % (auto) 4.6 %; Neutrophils # (auto) 9.66 K/uL (1.4-6.5); Neutrophils % (auto) 80.9 %; Platelet Count 186 K/uL (130-400); RDW Standard Deviation 79.4 fL (36.4-46.3); Red Blood Count 2.07 M/uL (4.2-5.4); Target Cells 2+; White Blood Count 11.96 K/uL (4.8-10.8)
--- NOTE | 2020-08-01 09:41 | Gastroenterology Progress Note ---
Date of Service August 01, 2020 Assessment & Plan (1) Elevated liver enzymes: Patient presenting with shortness of breath thought to be related to congestive heart failure. GI consulted for evaluation of her elevated liver enzymes. Differentials considered include: congestive hepatopathy (most likely) as opposed to cirrhosis with pulmonary complications (less likely as no mention of nodular contour on imaging and platelet levels are normal. Obstructive process has been ruled out with CT, MRCP. No evidence of chronic HCV (antibody + but viral load - in April 2020). Recommendations: Spoke with pt about need for referral to a tertiary center as patient may benefit from a transjugular liver biopsy which is not available locally. She refuses transfer to [place], stating she would be "all alone there." She agrees to OP IR transjugular liver bx in [place] after discharge. Will watch for Hep B serology results when available. Will need eventual HepA immunization. Echo with bubble study. Appreciate nephrology input. Consider rheum and hem/onc referrals. Consider work up for hemolytic anemias. Continue to follow LFTs, INR daily. Admission and Anticipated Discharge Date Admission Date: July 30, 2020 Supervising Physician Co-Signing Physician Notes Attending attestation: I have seen, examined this patient, and agree with the findings and above by our mid-level provider SHAAN Rodriguez, with the following additions: Patient admitted with shortness of breath in volume overload. Was found to have proteinuria that is persisting, with mild Diastolic dysfunction confusion for other has mild pulmonary hypertension. it does not appear that she has cirrhosis. She has no ascites, no signs of decompensated liver disease, liver is not nodular or spleen is not enlarged on imaging. Platelets do not suggest nor does LFTs presence of intrinsic liver disease. Given her presenting complaint of hypoxemia as well as shortness of breath, that would only suggest a 2 potential liver complications - hepatic hydrothorax( no pleural effusion noted) or hepatopulmonary syndrome. Hepatic pulmonary syndrome is generally seen in advance liver disease which again she does not have suggestions of. An echocardiogram with agitated saline may be beneficial to see if she actually has a shunt. I think her element of hyperbilirubinemia in the setting of anemia would also entertain a possibility of possible Of hemolysis as contributing to her laboratory results. She does not have evidence of obstruction on imaging. I think this is likely not primary hepatic dysfunction, would explore other possibilities as etiology of her presenting complaints. Will follow up on hep B serologies, blood strongly recommend transient liver biopsy for right-sided heart as well as portal pressures and acquisition of tissue to be evaluated. Subjective Ms. Elaine Guzman is a 40 yr old female pt admitted on 07/30 for SOB. Hx of CHF with preserved EF, dx'ed in April 2020 Proteinuria, being worked up. Chronic macrocytic anemia: Hb 6.4 on arrival, received 2 units of RBCs yesterday Hb 7.0. GI is consulted for elevated LFTs: Bili 6.7 on arrival->8.1 max yesterday ->7.1 this morning (normal in April 2020). Transaminases mildly elevated since April 2020. Today: AST 83, ALT 18, Alk Phos 120. US 07/30 with gallbladder wall thickening and dilated CBD HIDA: no obstruction, mild delay Non contrast CT hepatomegaly, splenomegaly, mild colon wall thickening MRCP: CBD 7mm no stones, mild gallbladder wall thickening. Pt hx: yellow skin first noticed on transport to ED (by medic, according to the pt). No pain, no nausea/vomiting HCV + but RNA (-) Denies hx of increased alcohol intake, denies any hx of IV drug use. Review of Systems Constitutional: + sweats, + fatigue, + weakness and + weight gain; no fever Eyes: + problem reported (icterus noted on arrival); no eye pain Ear, Nose, Mouth, Throat: no hearing loss, no sore throat, no dysphagia and no pain with swallowing Respiratory: + cough (began this morning), + dyspnea and + dyspnea on exertion (with amb to BR) Cardiovascular: + edema (reports abdominal fluid accumulation "around my love handles"); no chest pain and no palpitations Gastrointestinal: + abdominal pain (some mild RUQ discomfort); no heartburn, no nausea, no vomiting, no blood in stools and no melena Genitourinary: no dysuria, no difficulty urinating and no urinary frequency Musculoskeletal: + body aches; no back pain, no neck pain and no muscle weakness Integumentary: + yellowing of the skin and + change in skin color (jaundice); no rash, no lesions, no dry skin and no pruritus Neurologic: + generalized weakness; no gait abnormality and no dizziness NO asterixes Psychiatric: no hopelessness, no change in appetite, no suicidal ideation and no panic attacks Endocrine: + fatigue; no polydipsia, no polyphagia, no polyuria and no flushing Hematologic / Lymphatic: no easy bleeding and no coagulopathy Allergy / Immunological: + cough; no GI upset with certain foods, no lip swelling and no tongue swelling Physical Exam Constitutional: WD/WN, vitals as above + ill appearing and + obese Eyes: + scleral abnormality (icterus) and PERRL ENMT: external ear and nose normal, oropharynx normal Neck: trachea midline, no thyromegaly Respiratory: Auscultation: + diminished lung sounds (mildly, at bases); no crackles and no rales mild SOB with ambulation to BR Cardiovascular: RRR, no murmur, no edema Gastrointestinal (Abdomen): Inspection/Auscultation: abdomen not distended Percussion/Palpation: + abdomen tender (RUQ), abdomen soft and + hepatomegaly (palpable at 3 finger widths below the right costal border) no obvious ascites Musculoskeletal: no cyanosis or clubbing, extremities motor strength 5/5 Skin: + jaundice Neurologic: PERRL, EOMI, accommodation nl, no face palsy, no dysarthria Psychiatric: A+Ox3, euthymic affect Lymphatic: no cervical or axillary lymphadenopathy Results & Data ([facility]) Vital Signs (Past 12 Hours) Vital Signs Temp Pulse Resp BP Pulse Ox 08/01/20 08:41 102 H 16 92 08/01/20 07:24 37.4 C 102 H 19 101/69 97 08/01/20 03:36 37.2 C 98 H 19 101/68 96 07/31/20 22:59 37.1 C 101 H 19 114/75 94 Laboratory Results T Bili 7.1, INR 1.4, WBC 11, Hb 7.7, Hct 22, Platelets 213, Na 139, K 3.4, BUN 7, Cr0 .99. Diagnostic Findings See HPI for US, CT, MRCP
--- NOTE | 2020-08-01 09:54 | Nephrology Progress Note ---
Date of Service August 01, 2020 Assessment & Plan (1) Proteinuria: She has a previous history of proteinuria with random urine protein of 35.1 and random creatinine of 13(04/26) and 2.3 gm on 24 hr urine (no creat). She denies any renal problems in the past, although there is a family history of SLE. serum creatinine has been normal, with significant electrolyte derangements. Autoimmune screen has been essentially negative in the past with no M spike. Best way to proceed forward is to get a 24-hour urine collection for protein, creatinine, FLC, Hep B and HIV- these are pending. As a cause of her proteinuria is uncertain, she may require kidney biopsy non emergently. (2) Hypocalcemia: She has hypocalcemia, hypomagnesemia and hypokalemia, She admitted to 2-3 watery bowel movements since the time of her discharge. Likely Etiology could be GI loss, she has also been on diuretic which could be a contributory factor. follow up urine studies, urine chloride calcium protein magnesium calcium and potassium -- though these may at this point be affected by repletion we are giving her Agree with aggressive placement of all the electrolytes with IV and oral Continue to use furosemide prn only and recheck bmp if > 1 lasix dose in a day needed (3) Cirrhosis: Gastro on board. Present on Admission?: Yes (4) Anemia: As per primary. note hgb is dropping again. 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 pt reports bronch did not go well; seen on rounds this evening 1740 > c/o sob, cough, wheeze Review of Systems Review of Systems: All systems reviewed & are unremarkable except as noted in HPI & below Genitourinary: + problem reported (states her urine always dark and w/ sediment) Physical Exam Constitutional: well developed, + obese, cooperative and + in distress (mild d/t cough) Eyes: EOM intact bilaterally ENMT: Ears: no external ear abnormality Nose: no external nose abnormality Mouth: + dry oral mucous membranes Neck: no nuchal rigidity Respiratory: normal respiratory effort, + labored breathing and + tachypneic Auscultation: + diminished lung sounds and + wheezes Cardiovascular: Rate/Rhythm: + tachycardic Extremities: no edema Gastrointestinal (Abdomen): Inspection/Auscultation: normal bowel sounds Percussion/Palpation: abdomen soft; abdomen nontender Musculoskeletal: Extremities: strength 5/5 throughout Skin: no rashes, warm and dry Neurologic: collier, fluent speech, no tremor Psychiatric: Orientation: alert and oriented x 3 Affect: + anxious affect Results & Data ([facility]) Vital Signs (Past 12 Hours) Vital Signs Temp Pulse Resp BP Pulse Ox 08/01/20 08:41 102 H 16 92 08/01/20 07:24 37.4 C 102 H 19 101/69 97 08/01/20 03:36 37.2 C 98 H 19 101/68 96 07/31/20 22:59 37.1 C 101 H 19 114/75 94 Laboratory Results Abnormal lab results 07/30/20 07/31/20 07/31/20 Range/Units 14:43 09:38 09:38 WBC 11.29 H (4.8-10.8) K/uL RBC 2.04 L (4.2-5.4) M/uL Hgb 7.7 L (12.0-16.0) g/dL Hct 21.0 L (37-47) % MCV 102.9 H (80-100) fL MCH 37.7 H (25-34) pg MCHC 36.7 H (32-36) g/dL RDW Std Deviation 77.9 H (36.4-46.3) fL RDW Coeff of Christine 26.0 H (11.5-14.5) % MPV 10.9 H (7.4-10.4) fL Neut # (Auto) 9.02 H (1.4-6.5) K/uL Rush # (Auto) 0.76 H (0.11-0.59) K/uL Immature Gran # (Auto) 0.05 H (0.00-0.02) K/uL PT (9.0-12.0) Seconds INR (0.9-1.1) Potassium (3.5-5.1) mmol/L Carbon Dioxide (21-32) mmol/L BUN (7-18) mg/dl BUN/Creatinine Ratio (10-20) Glucose (70-99) mg/dl Calcium (8.5-10.1) mg/dl Phosphorus (2.5-4.9) mg/dl Magnesium (1.8-2.4) mg/dl Iron (35-150) mcg/dl TIBC (250-450) mcg/dl Transferrin (200-360) mg/dl Total Bilirubin (0.2-1) mg/dl Direct Bilirubin (0-0.2) mg/dl AST (15-37) U/L Alkaline Phosphatase (45-117) U/L Albumin (3.4-5.0) gm/dl Globulin (2.5-4.0) gm/dl Albumin/Globulin Ratio (0.9-2) Vitamin B12 (211-911) pg/ml Hep Bs Antibody, Quant 3.69 L (>or=10mIU/mL Immune) mIU/mL Antibody Screen POSITIVE A Direct Antiglob Test Positive A (Negative) CHRIS, Polyspecific Weak Pos A (Negative) CHRIS C3b, C3d 5 Min Weak Pos A (Negative) Crossmatch See Detail 07/31/20 07/31/20 07/31/20 Range/Units 09:38 09:38 09:38 WBC (4.8-10.8) K/uL RBC (4.2-5.4) M/uL Hgb (12.0-16.0) g/dL Hct (37-47) % MCV (80-100) fL MCH (25-34) pg MCHC (32-36) g/dL RDW Std Deviation (36.4-46.3) fL RDW Coeff of Christine (11.5-14.5) % MPV (7.4-10.4) fL Neut # (Auto) (1.4-6.5) K/uL Rush # (Auto) (0.11-0.59) K/uL Immature Gran # (Auto) (0.00-0.02) K/uL PT (9.0-12.0) Seconds INR (0.9-1.1) Potassium 2.9 L D (3.5-5.1) mmol/L Carbon Dioxide 33 H (21-32) mmol/L BUN 5 L (7-18) mg/dl BUN/Creatinine Ratio 5.3 L (10-20) Glucose (70-99) mg/dl Calcium 5.4 L* (8.5-10.1) mg/dl Phosphorus 2.2 L (2.5-4.9) mg/dl Magnesium 1.3 L (1.8-2.4) mg/dl Iron 211 H (35-150) mcg/dl TIBC 205 L (250-450) mcg/dl Transferrin 160 L (200-360) mg/dl Total Bilirubin 8.1 H (0.2-1) mg/dl Direct Bilirubin 6.0 H (0-0.2) mg/dl AST 89 H (15-37) U/L Alkaline Phosphatase 141 H (45-117) U/L Albumin 2.0 L (3.4-5.0) gm/dl Globulin (2.5-4.0) gm/dl Albumin/Globulin Ratio (0.9-2) Vitamin B12 1523 H (211-911) pg/ml Hep Bs Antibody, Quant (>or=10mIU/mL Immune) mIU/mL Antibody Screen Direct Antiglob Test (Negative) CHRIS, Polyspecific (Negative) CHRIS C3b, C3d 5 Min (Negative) Crossmatch 07/31/20 07/31/20 07/31/20 Range/Units 16:04 16:04 23:13 WBC (4.8-10.8) K/uL RBC (4.2-5.4) M/uL Hgb 7.7 L (12.0-16.0) g/dL Hct 22.0 L (37-47) % MCV (80-100) fL MCH (25-34) pg MCHC (32-36) g/dL RDW Std Deviation (36.4-46.3) fL RDW Coeff of Christine (11.5-14.5) % MPV (7.4-10.4) fL Neut # (Auto) (1.4-6.5) K/uL Rush # (Auto) (0.11-0.59) K/uL Immature Gran # (Auto) (0.00-0.02) K/uL PT (9.0-12.0) Seconds INR (0.9-1.1) Potassium 3.2 L 3.4 L (3.5-5.1) mmol/L Carbon Dioxide (21-32) mmol/L BUN 6 L (7-18) mg/dl BUN/Creatinine Ratio 6.9 L (10-20) Glucose 108 H (70-99) mg/dl Calcium 6.1 L 5.9 L* (8.5-10.1) mg/dl Phosphorus 2.1 L 1.7 L (2.5-4.9) mg/dl Magnesium (1.8-2.4) mg/dl Iron (35-150) mcg/dl TIBC (250-450) mcg/dl Transferrin (200-360) mg/dl Total Bilirubin (0.2-1) mg/dl Direct Bilirubin (0-0.2) mg/dl AST (15-37) U/L Alkaline Phosphatase (45-117) U/L Albumin 1.9 L (3.4-5.0) gm/dl Globulin (2.5-4.0) gm/dl Albumin/Globulin Ratio (0.9-2) Vitamin B12 (211-911) pg/ml Hep Bs Antibody, Quant (>or=10mIU/mL Immune) mIU/mL Antibody Screen Direct Antiglob Test (Negative) CHRIS, Polyspecific (Negative) CHRIS C3b, C3d 5 Min (Negative) Crossmatch 08/01/20 08/01/20 08/01/20 Range/Units 06:35 06:35 06:35 WBC 11.96 H (4.8-10.8) K/uL RBC 2.07 L (4.2-5.4) M/uL Hgb 7.0 L (12.0-16.0) g/dL Hct 20.6 L* 20.6 L* (37-47) % MCV (80-100) fL MCH (25-34) pg MCHC (32-36) g/dL RDW Std Deviation 79.4 H (36.4-46.3) fL RDW Coeff of Christine 23.0 H (11.5-14.5) % MPV 10.9 H (7.4-10.4) fL Neut # (Auto) 9.66 H (1.4-6.5) K/uL Rush # (Auto) (0.11-0.59) K/uL Immature Gran # (Auto) 0.04 H (0.00-0.02) K/uL PT 14.6 H (9.0-12.0) Seconds INR 1.4 H (0.9-1.1) Potassium (3.5-5.1) mmol/L Carbon Dioxide (21-32) mmol/L BUN (7-18) mg/dl BUN/Creatinine Ratio (10-20) Glucose (70-99) mg/dl Calcium (8.5-10.1) mg/dl Phosphorus (2.5-4.9) mg/dl Magnesium (1.8-2.4) mg/dl Iron (35-150) mcg/dl TIBC (250-450) mcg/dl Transferrin (200-360) mg/dl Total Bilirubin (0.2-1) mg/dl Direct Bilirubin (0-0.2) mg/dl AST (15-37) U/L Alkaline Phosphatase (45-117) U/L Albumin (3.4-5.0) gm/dl Globulin (2.5-4.0) gm/dl Albumin/Globulin Ratio (0.9-2) Vitamin B12 (211-911) pg/ml Hep Bs Antibody, Quant (>or=10mIU/mL Immune) mIU/mL Antibody Screen Direct Antiglob Test (Negative) CHRIS, Polyspecific (Negative) CHRIS C3b, C3d 5 Min (Negative) Crossmatch 08/01/20 Range/Units 06:35 WBC (4.8-10.8) K/uL RBC (4.2-5.4) M/uL Hgb (12.0-16.0) g/dL Hct (37-47) % MCV (80-100) fL MCH (25-34) pg MCHC (32-36) g/dL RDW Std Deviation (36.4-46.3) fL RDW Coeff of Christine (11.5-14.5) % MPV (7.4-10.4) fL Neut # (Auto) (1.4-6.5) K/uL Rush # (Auto) (0.11-0.59) K/uL Immature Gran # (Auto) (0.00-0.02) K/uL PT (9.0-12.0) Seconds INR (0.9-1.1) Potassium 3.2 L (3.5-5.1) mmol/L Carbon Dioxide (21-32) mmol/L BUN (7-18) mg/dl BUN/Creatinine Ratio 7.9 L (10-20) Glucose (70-99) mg/dl Calcium 6.6 L (8.5-10.1) mg/dl Phosphorus (2.5-4.9) mg/dl Magnesium (1.8-2.4) mg/dl Iron (35-150) mcg/dl TIBC (250-450) mcg/dl Transferrin (200-360) mg/dl Total Bilirubin 7.3 H (0.2-1) mg/dl Direct Bilirubin (0-0.2) mg/dl AST 83 H (15-37) U/L Alkaline Phosphatase 120 H (45-117) U/L Albumin 1.8 L (3.4-5.0) gm/dl Globulin 4.9 H (2.5-4.0) gm/dl Albumin/Globulin Ratio 0.4 L (0.9-2) Vitamin B12 (211-911) pg/ml Hep Bs Antibody, Quant (>or=10mIU/mL Immune) mIU/mL Antibody Screen Direct Antiglob Test (Negative) CHRIS, Polyspecific (Negative) CHRIS C3b, C3d 5 Min (Negative) Crossmatch (1) Proteinuria Proteinuria type: unspecified Qualified Code(s): R80.9 - Proteinuria, unspecified
[2020-08-01] MEDS ORDERED: LORazepam 2 MG/ML VIAL IV ONE (10:00)
[2020-08-01] MEDS ORDERED: fentaNYL citrate 100 MCG/2 ML VIAL IV ONE (10:41)
[2020-08-01] MEDS ORDERED: MIDAZOLAM HCL 1 MG/ML 2ML VIAL IV STA (10:41)
[2020-08-01] MEDS ORDERED: LIDOCAINE HCL VISCOUS SOLN 2% 15 ML UDC TOP ONE (10:41)
[2020-08-01] MEDS ORDERED: LIDOCAINE HCL 2% (LOCAL) INJ 50 ML VIAL INSTIL ONE (10:41)
[2020-08-01] MEDS ORDERED: LIDOCAINE 4% INH SOLN 4 ML BTL NEB ONE (10:41)
--- NOTE | 2020-08-01 10:51 | Procedure Note ---
Procedure Note Date of Service August 01, 2020 Note PREOPERATIVE DIAGNOSIS: Abnormal CT chest POSTOPERATIVE DIAGNOSIS: Abnormal CT chest PROCEDURE PERFORMED: Flexible fiberoptic bronchoscopy was terminated early due to the patient having difficulties with the procedure. COMPLICATIONS: Unable to perform procedure due to patient coughing and having a panic attack. INDICATION: Rule out infectious etiology PROCEDURE: After obtaining an informed consent, the patient was brought to the Bronchoscopy Suite. The patient had appropriate oxygen, blood pressure, heart rate, and respiratory rate monitoring applied and monitored continuously throughout the procedure. Supplemental oxygen via nasal cannula as per nursing records was applied to the nasopharynx with adequate saturations achieved. Topical anesthesia with nebulized 1% lidocaine was achieved. Subsequent to this, the patient was premedicated with 5 mg mg of midazolam and 100 mcg of fentanyl. The oropharynx and larynx were well visualized and showed mild erythema. There was normal vocal cord motion without masses or lesions. Additional topical anesthesia with 1% lidocaine was applied to the trachea and iván. The trachea appeared normal. At this point, the procedure was aborted as the patient was having a panic attack and raising her arms frequently. She was trying to talk throughout the bronchoscopy. Unfortunately, no samples were obtained. She was mildly hypotensive, but this improved quickly with continuous fluids. If a repeat bronchoscopy was attempted, I would highly recommend general anesthesia. Coding CPT Codes Pulmonary/Thoracic - Pulmonary and Thoracic: 15469 Dx bronchoscopy/BAL ([id number]) [facility] [place] Procedure Codes (Charges) Pulmonary/Thoracic Procedure 1: Pulmonary and Thoracic: 98463 Dx bronchoscopy/BAL
[2020-08-01 12:19] LABS: Phosphorus 3.8 mg/dl (2.5-4.9)
[2020-08-01 12:22] LABS: Total Volume Urine 1200 mL
[2020-08-01 12:30] LABS: Calcium 24 Hour Urine < 60.0 mg/24 hr (42-353); Sodium 24 Hour Urine 50 mmol/24 (40-220); Total Protein 24 Hour Urine 784.8 mg/24 Hr (0-149.1); Urine Calcium < 5.0 mg/dl; Urine Creatinine 67.5 mg/dl; Urine Sodium 42 mmol/L; Urine Total Protein 65.4 mg/dl
[2020-08-01 12:31] LABS: Potassium 24 Hour Urine 16 mmol/24 (25-125); Urine Potassium 13.4 mmol/L
[2020-08-01] MEDS ORDERED: POTASSIUM CHLORIDE 20 MEQ TABCR PO STA (12:43)
[2020-08-01] MEDS: BUPRENORPHINE/NALOXONE 8/2 MG TAB SL SCH (13:23)
[2020-08-01] MEDS: CALCIUM CARBONATE 1250MG TAB PO SCH ×2 (13:23→20:30)
[2020-08-01] MEDS: MAGNESIUM OXIDE 400 MG TAB PO SCH ×2 (13:23→20:30)
--- NOTE | 2020-08-01 15:06 | Surgery Progress Note ---
Date of Service pt has no abdominal pain, but some SOB, no nausea, August 01, 2020 Assessment & Plan (1) Elevated liver enzymes: (2) Acute cholecystitis: pt is a 40 year-old female who was admitted to hospital abdominal pain and elevate LFTs. IMP: acute cholecystitis, cholelithiasis, anemia, no emergent indication of cholecystectomy now, medical treatment first, may get HIDA scan to more understand cholecystitis, GI will do ERCP. will F/U 08/01/2020, 3:09PM. HIDA scan - no acute cholecystitis, no indication for cholecystectomy now, base on pt's condition now, F/U out-patient sign off today, please call with questions, Thanks, Admission and Anticipated Discharge Date Admission Date: July 30, 2020 Supervising Physician Co-Signing Physician Notes Attending attestation: I have seen, examined this patient, and agree with the findings and above by our mid-level provider SHAAN Rodriguez, with the following additions: Patient admitted with shortness of breath in volume overload. Was found to have proteinuria that is persisting, with mild Diastolic dysfunction confusion for other has mild pulmonary hypertension. it does not appear that she has cirrhosis. She has no ascites, no signs of decompensated liver disease, liver is not nodular or spleen is not enlarged on imaging. Platelets do not suggest nor does LFTs presence of intrinsic liver disease. Given her presenting complaint of hypoxemia as well as shortness of breath, that would only suggest a 2 potential liver complications - hepatic hydrothorax( no pleural effusion noted) or hepatopulmonary syndrome. Hepatic pulmonary syndrome is generally seen in advance liver disease which again she does not have suggestions of. An echocardiogram with agitated saline may be beneficial to see if she actually has a shunt. I think her element of hyperbilirubinemia in the setting of anemia would also entertain a possibility of possible Of hemolysis as contributing to her laboratory results. She does not have evidence of obstruction on imaging. I think this is likely not primary hepatic dysfunction, would explore other possibilities as etiology of her presenting complaints. Will follow up on hep B serologies, blood strongly recommend transient liver biopsy for right-sided heart as well as portal pressures and acquisition of tissue to be evaluated. Subjective Ms. Elaine Guzman is a 40 yr old female pt admitted on 07/30 for SOB. Hx of CHF with preserved EF, dx'ed in April 2020 Proteinuria, being worked up. Chronic macrocytic anemia: Hb 6.4 on arrival, received 2 units of RBCs yesterday Hb 7.0. GI is consulted for elevated LFTs: Bili 6.7 on arrival->8.1 max yesterday ->7.1 this morning (normal in April 2020). Transaminases mildly elevated since April 2020. Today: AST 83, ALT 18, Alk Phos 120. US 07/30 with gallbladder wall thickening and dilated CBD HIDA: no obstruction, mild delay Non contrast CT hepatomegaly, splenomegaly, mild colon wall thickening MRCP: CBD 7mm no stones, mild gallbladder wall thickening. Pt hx: yellow skin first noticed on transport to ED (by medic, according to the pt). No pain, no nausea/vomiting HCV + but RNA (-) Denies hx of increased alcohol intake, denies any hx of IV drug use. Physical Exam Constitutional: WD/WN, vitals as above + ill appearing Eyes: PERRL, conjunctivae normal, anicteric sclerae ENMT: external ear and nose normal, oropharynx normal Neck: trachea midline, no thyromegaly Respiratory: normal respiratory effort, lungs clear to auscultation Cardiovascular: RRR, no murmur, no edema Rate/Rhythm: regular rate and regular rhythm Heart Sounds: normal S1 and normal S2 Gastrointestinal (Abdomen): normal bowel sounds, soft, nontender, no hepatosplenomegaly Musculoskeletal: no cyanosis or clubbing, extremities motor strength 5/5 Skin: no rashes, warm and dry Neurologic: patellar DTR's 2+ bilat, sensation intact Psychiatric: Orientation: alert and oriented x 3 Results & Data ([facility]) Vital Signs (Past 12 Hours) Vital Signs Temp Pulse Pulse Resp BP Pulse Ox 08/01/20 15:00 109 H 08/01/20 12:15 92 08/01/20 11:45 37.4 C 105 H 19 95/61 L 96 08/01/20 11:25 108 H 20 101/58 L 08/01/20 11:10 36.5 C 107 H 21 94/65 L 80 L 08/01/20 11:00 110 H 16 123/60 90 08/01/20 10:50 112 H 16 115/71 90 08/01/20 10:45 111 H 16 111/54 L 92 08/01/20 10:40 113 H 16 109/54 L 91 08/01/20 10:35 118 H 18 87/47 L 89 L 08/01/20 10:30 112 H 14 94/52 L 94 08/01/20 10:20 110 H 18 118/69 91 08/01/20 10:15 110 H 18 127/64 90 08/01/20 10:10 110 H 18 126/74 98 08/01/20 09:00 99 H 08/01/20 08:41 102 H 16 92 08/01/20 07:24 37.4 C 102 H 19 101/69 97 08/01/20 03:36 37.2 C 98 H 19 101/68 96 NUCLEAR MEDICINE HEPATOBILIARY SCAN CLINICAL HISTORY: Abnormal liver function tests. Abnormal CT and ultrasound. COMPARISON: Right upper quadrant ultrasound, CT and MRCP July 30, 2020. TECHNIQUE: 5.4 mCi of technetium 99m Choletec IV was injected at 4:35 PM on July 31, 2020. Immediately following injection, imaging of the abdomen was carried out for 60 minutes in the anterior projection. FINDINGS: The liver is enlarged. Hepatic uptake of radiotracer is prompt and homogeneous. Activity is identified within the common bile duct at 15 minutes. Small bowel activity is noted at 20 minutes. Gallbladder activity is noted at 15 minutes. IMPRESSION: 1. No evidence for acute cholecystitis. 2. Hepatomegaly. 3. Mildly delayed excretion of radiotracer into the common bile duct which could be due to hepatic dysfunction.
[2020-08-01 15:11] LABS: Mean Corpuscular Hgb Conc 33.3 g/dL (32-36); Mean Corpuscular Volume 101.9 fL (80-100); Mean Platelet Volume 10.6 fL (7.4-10.4); Platelet Count 183 K/uL (130-400); RDW Coefficient of Variation 23.3 % (11.5-14.5); RDW Standard Deviation 80.1 fL (36.4-46.3); Red Blood Count 2.06 M/uL (4.2-5.4); White Blood Count 10.66 K/uL (4.8-10.8)
[2020-08-01 15:13] LABS: Agglutinated RBC 1+; Anisocytosis Present; Basophils # (auto) 0.05 K/uL (0-0.2); Basophils % (auto) 0.5 %; Eosinophils # (auto) 0.06 K/uL (0-0.5); Eosinophils % (auto) 0.6 %; Immature Granulocytes # (auto) 0.03 K/uL (0.00-0.02); Immature Granulocytes % (auto) 0.3 %; Lymphocytes # (auto) 1.14 K/uL (1.2-3.4); Lymphocytes % (auto) 10.7 %; Monocytes # (auto) 0.46 K/uL (0.11-0.59); Monocytes % (auto) 4.3 %; Neutrophils # (auto) 8.92 K/uL (1.4-6.5); Neutrophils % (auto) 83.6 %; Polychromasia 1+; Target Cells 1+
[2020-08-01] MEDS ORDERED: LORazepam 0.5 MG TAB PO ONE (15:15)
[2020-08-01] MEDS ORDERED: Nursing to Pharmacy Communication SCH (15:15)
[2020-08-01 16:07] LABS: Reticulocyte % 3.7 % (0.5-2.0); Reticulocytes # 0.08 10^6/uL (0.02-0.10)
[2020-08-01] MEDS ORDERED: predniSONE 20 MG TAB PO SCH (17:00)
[2020-08-01] MEDS ORDERED: BENZONATATE 100 MG CAPSULE PO PRN (18:25)
--- NOTE | 2020-08-01 19:00 | Rheumatology Consultation ---
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 She has several signs and symptoms consistent with cold agglutinin disease. Without a biopsy of her lung or kidney, I am not sure what the driving force is. It appears that hematology has recommended initiation of steroids which is reasonable at this point. Several labs are pending. Likely not beneficial to repeat immune serologies at this point. Present on Admission?: Yes (8) Macrocytic anemia: History of Present Illness Attending Physician: Janak Curiel MD 40 year old woman admitted for worsening shortness of breath. She reports that she was previously healthy until just before Father's day this year when she noted worsening shortness of breath. She presented to [facility] ED and was found to have heart failure and pleural effusion. She underwent thorocentesis. She informs me that she was transferred to [place] and required intubation due to worsening shortness of breath. She was hospitalized for 4 days and notes that workup for her symptoms did not yield any underlying cause. She was treated with lasix for fluid overload. Subsequent CXR showed improvement of her pulmonary infiltrates and she had an echo on 06/28/20 done at [facility] that showed EF of 60-64%, left grade 1 diastolic dysfunction, trace MR and no evidence of pulmonary hypertension. Four days ago, she developed dyspnea on exertion commenting that she would be short of breath from just walking from her living room to the kitchen. Shortness of breath worsened to the point that she could no longer climb stairs and was too sick and weak to take care of her children. She presented to the ED a few days ago. Labs were notable for worsening anemia, abnormal liver enzymes, UTI, and proteinuria. Chest imaging showed new pulmonary infiltrates. She was to have a bronchoscopy today but did not tolerate the procedure due to shortness of breath. She has been seen by several specialists including hematology. Work-up notable for cold agglutinin disease and she will be started on prednisone 80 mg. She has been on antibiotics for possible pneumonia and UTI. She reports that her mother has lupus. She had extensive autoimmune workup done in April at [facility] and at [facility] that have been negative. She denies history of joint pain, joint swelling, rashes, fevers, night sweats, unintentional weight loss, or mouth sores. She reports dry eyes and dry mouth since requiring supplemental oxygen. She also notes easy bruising and hair thinning. No recent travel or sick contacts. No history of DVT/PE, or miscarriages. Allergies Allergy/AdvReac Type Severity Reaction Status Date / Time mushroom Allergy Severe ANAPHYLAXIS Verified 07/30/20 14:38 onion Allergy Severe ANAPHYLAXIS Verified 07/30/20 14:38 tramadol Allergy Mild RASH AND Verified 07/30/20 14:38 ITCHING ketorolac Allergy Unknown RASH Verified 07/30/20 14:38 green peppers Allergy Severe ANAPHYLAXIS Uncoded 07/30/20 14:38 Plasencia Pepper Allergy Unknown ANAPHYLAXIS Uncoded 07/30/20 14:38 FROM GREEN PEPPER Home Medications Home Medications Medication Instructions Recorded Confirmed Type albuterol sulfate 2 puff INHALATION Q4 PRN 04/24/20 07/30/20 History buprenorphine-naloxone 1.5 tab SUBLINGUAL UD 04/24/20 07/30/20 History ferrous sulfate 325 mg PO DAILY 07/30/20 07/30/20 History folic acid 1 mg PO DAILY 07/30/20 07/30/20 History furosemide 40 mg PO DAILY 07/30/20 07/30/20 History metoprolol succinate 25 mg PO DAILY 07/30/20 07/30/20 History Patient History Medical History Heart failure with preserved ejection fraction Hepatomegaly Pleural effusion on left Pleural effusion on right Proteinuria Pulmonary edema Transaminitis Family History Mother Lupus (systemic lupus erythematosus) Social History Smoking Status: Current every day smoker Tobacco Type: Cigarettes Cigarettes Per Day: 10; Do You Dip or Chew Tobacco: No; Hx Alcohol Use: Yes Alcohol type: hard liquor Hx Substance Use: No Preferred Language: Salvadorean Communication Ability: Effective Oven Worker Required: No Beliefs That Will Affect Care: None Current Living Situation: Spouse and Family Other Information That Helps Us Care for You: No Feels Safe at Home: Yes Safety Concerns: Feels Safe At This Time Assistive Devices: Oxygen - Continuous Review of Systems Constitutional: + body aches and + fatigue; no fever and no sweats Eyes: + dry eyes Ear, Nose, Mouth, Throat: + dry mouth and + sore throat; no mouth lesions Respiratory: + cough, + dyspnea and + dyspnea on exertion Cardiovascular: + dyspnea at rest and + edema; no chest pain with activity and no Raynauds symptoms Gastrointestinal: no abdominal pain, no bloating, no nausea and no vomiting Musculoskeletal: + muscle weakness; no back pain, no joint pain and no stiffness Integumentary: + unusual bruising Neurologic: no numbness and no paresthesia Physical Exam Physical Exam: Constitutional: sitting in bed with supplemental oxygen, having difficulty speaking in full sentences ENT: dry oral mucosa, no ulcers, scleral icterus Neck: no LAD or thyromegaly Respiratory: diffuse respiratiory wheezes CV: tachycardic without any murmurs, rubs, or gallops GI: no rebound or guarding MSK: no joint tenderness or swelling Skin: several bruises on upper extremities Results & Data ([facility]) Vital Signs (Past 12 Hours) Vital Signs Temp Pulse Pulse Resp BP Pulse Ox 08/01/20 15:10 36.9 C 106 H 24 91/66 L 99 08/01/20 15:00 109 H 08/01/20 12:15 92 08/01/20 11:45 37.4 C 105 H 19 95/61 L 96 08/01/20 11:25 108 H 20 101/58 L 08/01/20 11:10 36.5 C 107 H 21 94/65 L 80 L 08/01/20 11:00 110 H 16 123/60 90 08/01/20 10:50 112 H 16 115/71 90 08/01/20 10:45 111 H 16 111/54 L 92 08/01/20 10:40 113 H 16 109/54 L 91 08/01/20 10:35 118 H 18 87/47 L 89 L 08/01/20 10:30 112 H 14 94/52 L 94 08/01/20 10:20 110 H 18 118/69 91 08/01/20 10:15 110 H 18 127/64 90 08/01/20 10:10 110 H 18 126/74 98 08/01/20 09:00 99 H 08/01/20 08:41 102 H 16 92 08/01/20 07:24 37.4 C 102 H 19 101/69 97 Immune work-up 04/26/20 The following labs were negative: RF, CCP, ANCA, PR3, SSA, SSB, Eaton, [employer]LE[employer] 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
[2020-08-01] MEDS ORDERED: XOPENEX/ATROVENT 1.25mg/0.5MG NEB COMBO NEB SCH (19:30)
[2020-08-01] MEDS: IPRATROPIUM BROMIDE NEB SOLN 0.02% 2.5 ML VIAL INH SCH ×2 (19:40→22:07)
[2020-08-01] MEDS: LEVALBUTEROL 1.25MG/0.5ML NEB INH SCH ×2 (19:40→22:04)
--- NOTE | 2020-08-01 20:02 | XRay Report ---
XR chest 1V portable CLINICAL HISTORY: Shortness of breath COMPARISON STUDY: 07/31/2020 FINDINGS: The heart remains mildly enlarged. There are persistent extensive bilateral pulmonary airsp td opacities. This could represent pulmonary edema or a bilateral pneumonitis. IMPRESSION: Persistent extensive bilateral pulmonary airspace opacities, relatively similar to the pr eceding study given the differences in technique ACT 112: Negative or not required by law. Electronically signed by: Aamir Fiore M.D. 08/01/2020 8:00 PM
[2020-08-01] MEDS ORDERED: FUROSEMIDE 40 MG in SYRINGE 0 ML IV ONE (20:30)
--- NOTE | 2020-08-01 20:45 | Hospitalist Progress Note ---
Date of Service August 01, 2020 Assessment & Plan (1) SOB (shortness of breath): SHORTNESS OF BREATH, MULTIFACTORIAL: INTERSTITIAL LUNG DISEASE? PNEUMONIA? VOLUME OVERLOAD Bronchoscopy not performed due to agitation repeat CXR: possible pulmonary edema additional Lasix 40mg this evening Nebs q4h Prednisone started this evening monitor I&O PNEUMONIA? Cefepime + Doxy ANEMIA, HEMOLYTIC, SECONDARY TO COLD AGGLUTININ DISEASE peripheral smear: revealed above Hg 7 after 2 units PRBC discussed with Hem/Onc Dr. Oneil recommend Prednisone 80mg po daily monitor CBC CHF EXACERBATION secondary to volume overload from pRBCS, IV meds additional Lasix 40mg this evening DIRECT BILIRUBINEMIA, LIKELY SECONDARY TO HEMOLYSIS MRCP: no biliary obstruction HIDA scan: negative may need Liver Biopsy per GI ELEVATED INR likely coagulopathy from underlying liver disease no signs of bleeding monitor LOW K, CA, MAG from poor oral intake continue repletion and monitoring Nephro on Board PROTEINURIA repeat studies ordered may need renal biopsy per Nephro UNDERLYING AUTOIMMUNE PROCESS? consultED Rheum ELEVATED QT INTERVAL from electrolyte disturbance monitor KLEBSIELLA UTI ff up cultures on Ceftri, Doxy DVT PROPHYLAXIS SCDs in light of hemolytic anemia DISPOSITION pending lives with family at home Admission and Anticipated Discharge Date Admission Date: July 30, 2020 Subjective ff up for shortness of breath, etc seen after attempted Bronch sleeping, not in distress re-evaluated in the evening, 7pm patient reports dyspnea, dry cough no chest pain, palpitations no abdominal pain no other symptoms Review of Systems Review of Systems: All systems reviewed & are unremarkable except as noted in Subjective Physical Exam Physical Exam: General- oriented x 3, mildly tachypneic, speaks in sentences with no effort or accessory muscle use Eyes- anicteric Neck- no JVD Lungs- (+) diminished breath sounds bilaterally no wheezing Heart-tachycardic, regular rhythm; no murmurs Abdomen- normal bowel sounds, nondistended, soft, nontender Extremities- no pretibial edema, no calf tenderness Neuro- alert, oriented x 3; no gross focal neurologic deficits Skin- warm & dry Results & Data Results & Data ([facility]) Vital Signs (Past 12 Hours) Vital Signs Temp Pulse Pulse Pulse Resp BP Pulse Ox 08/01/20 19:32 120 H 26 H 81 L 08/01/20 19:25 37.4 C 117 H 24 114/74 97 08/01/20 15:10 36.9 C 106 H 24 91/66 L 99 08/01/20 15:00 109 H 08/01/20 12:15 92 08/01/20 11:45 37.4 C 105 H 19 95/61 L 96 08/01/20 11:25 108 H 20 101/58 L 08/01/20 11:10 36.5 C 107 H 21 94/65 L 80 L 08/01/20 11:00 110 H 16 123/60 90 08/01/20 10:50 112 H 16 115/71 90 08/01/20 10:45 111 H 16 111/54 L 92 08/01/20 10:40 113 H 16 109/54 L 91 08/01/20 10:35 118 H 18 87/47 L 89 L 08/01/20 10:30 112 H 14 94/52 L 94 08/01/20 10:20 110 H 18 118/69 91 08/01/20 10:15 110 H 18 127/64 90 08/01/20 10:10 110 H 18 126/74 98 08/01/20 09:00 99 H 08/01/20 08:41 102 H 16 92 Laboratory Results Laboratory Results - last 24 hr 07/30/20 07/31/20 07/31/20 14:43 10:30 23:13 WBC RBC Hgb Hct MCV MCH MCHC RDW Std Deviation RDW Coeff of Christine Plt Count MPV Immature Gran % (Auto) Neut % (Auto) Lymph % (Auto) Benzie % (Auto) Eos % (Auto) Baso % (Auto) Reticulocyte % (Auto) Neut # (Auto) Lymph # (Auto) Benzie # (Auto) Eos # (Auto) Baso # (Auto) Reticulocyte # Immature Gran # (Auto) Polychromasia Anisocytosis Target Cells RBC Agglutinates Peripher Smr Path Cons Haptoglobin PT INR Sodium 139 Potassium 3.4 L Chloride 100 Carbon Dioxide 31 Anion Gap 8.0 BUN 7 Creatinine 0.99 Est Cr Clr Drug Dosing 84.0 Est GFR ( Amer) 83.8 Est GFR (Non-Af Amer) 72.3 BUN/Creatinine Ratio 6.9 L Glucose 108 H Calcium 5.9 L* Phosphorus 1.7 L Magnesium 2.2 Total Bilirubin AST ALT Alkaline Phosphatase Lactate Dehydrogenase Total Protein Albumin 1.9 L Globulin Albumin/Globulin Ratio Specimen Hemolysis Urine Total Volume 1200 Urine Creatinine 67.5 Ur Creatinine 24 Hour 0.8 Ur Total Protein 24 Hr 784.8 H Urine Sodium 42 Ur Sodium 24 Hour 50 Urine Potassium 13.4 Ur Potassium 24 Hour 16 L Urine Calcium < 5.0 Ur Calcium 24 Hr < 60.0 Urine Total Protein 65.4 Urine Magnesium 9.0 Ur Magnesium 24 Hr 108.0 Antibody ID Comment Direct Antiglob Test CHRIS (IgG-AHG) CHRIS, Polyspecific CHRIS C3b, C3d 5 Min 08/01/20 08/01/20 08/01/20 06:35 06:35 06:35 WBC 11.96 H RBC 2.07 L Hgb 7.0 L Hct 20.6 L* 20.6 L* MCV 99.5 MCH 33.8 MCHC 34.0 RDW Std Deviation 79.4 H RDW Coeff of Christine 23.0 H Plt Count 186 MPV 10.9 H Immature Gran % (Auto) 0.3 Neut % (Auto) 80.9 Lymph % (Auto) 13.0 Benzie % (Auto) 4.6 Eos % (Auto) 0.9 Baso % (Auto) 0.3 Reticulocyte % (Auto) Neut # (Auto) 9.66 H Lymph # (Auto) 1.56 Benzie # (Auto) 0.55 Eos # (Auto) 0.11 Baso # (Auto) 0.04 Reticulocyte # Immature Gran # (Auto) 0.04 H Polychromasia Anisocytosis Target Cells 2+ RBC Agglutinates 2+ Peripher Smr Path Cons FORCED Haptoglobin PT 14.6 H INR 1.4 H Sodium Potassium Chloride Carbon Dioxide Anion Gap BUN Creatinine Est Cr Clr Drug Dosing Est GFR ( Amer) Est GFR (Non-Af Amer) BUN/Creatinine Ratio Glucose Calcium Phosphorus Magnesium Total Bilirubin AST ALT Alkaline Phosphatase Lactate Dehydrogenase Total Protein Albumin Globulin Albumin/Globulin Ratio Specimen Hemolysis Urine Total Volume Urine Creatinine Ur Creatinine 24 Hour Ur Total Protein 24 Hr Urine Sodium Ur Sodium 24 Hour Urine Potassium Ur Potassium 24 Hour Urine Calcium Ur Calcium 24 Hr Urine Total Protein Urine Magnesium Ur Magnesium 24 Hr Antibody ID Comment Direct Antiglob Test CHRIS (IgG-AHG) CHRIS, Polyspecific CHRIS C3b, C3d 5 Min 08/01/20 08/01/20 08/01/20 06:35 06:35 14:07 WBC RBC Hgb Hct MCV MCH MCHC RDW Std Deviation RDW Coeff of Christine Plt Count MPV Immature Gran % (Auto) Neut % (Auto) Lymph % (Auto) Benzie % (Auto) Eos % (Auto) Baso % (Auto) Reticulocyte % (Auto) Neut # (Auto) Lymph # (Auto) Benzie # (Auto) Eos # (Auto) Baso # (Auto) Reticulocyte # Immature Gran # (Auto) Polychromasia Anisocytosis Target Cells RBC Agglutinates Peripher Smr Path Cons Haptoglobin PT INR Sodium 138 Potassium 3.2 L Chloride 101 Carbon Dioxide 29 Anion Gap 7.0 BUN 7 Creatinine 0.91 Est Cr Clr Drug Dosing 91.9 Est GFR ( Amer) 92.8 Est GFR (Non-Af Amer) 80.0 BUN/Creatinine Ratio 7.9 L Glucose 80 Calcium 6.6 L Phosphorus 3.8 D Magnesium 2.0 Total Bilirubin 7.3 H AST 83 H ALT 18 Alkaline Phosphatase 120 H Lactate Dehydrogenase Total Protein 6.7 Albumin 1.8 L Globulin 4.9 H Albumin/Globulin Ratio 0.4 L Specimen Hemolysis Urine Total Volume Urine Creatinine Ur Creatinine 24 Hour Ur Total Protein 24 Hr Urine Sodium Ur Sodium 24 Hour Urine Potassium Ur Potassium 24 Hour Urine Calcium Ur Calcium 24 Hr Urine Total Protein Urine Magnesium Ur Magnesium 24 Hr Antibody ID Comment Direct Antiglob Test Positive A CHRIS (IgG-AHG) Neg CHRIS, Polyspecific 1+ A CHRIS C3b, C3d 5 Min Weak Pos A 08/01/20 08/01/20 08/01/20 14:07 14:07 14:07 WBC 10.66 RBC 2.06 L Hgb 7.0 L Hct 21.0 L MCV 101.9 H MCH 34.0 MCHC 33.3 RDW Std Deviation 80.1 H RDW Coeff of Christine 23.3 H Plt Count 183 MPV 10.6 H Immature Gran % (Auto) 0.3 Neut % (Auto) 83.6 Lymph % (Auto) 10.7 Benzie % (Auto) 4.3 Eos % (Auto) 0.6 Baso % (Auto) 0.5 Reticulocyte % (Auto) 3.7 H Neut # (Auto) 8.92 H Lymph # (Auto) 1.14 L Benzie # (Auto) 0.46 Eos # (Auto) 0.06 Baso # (Auto) 0.05 Reticulocyte # 0.08 Immature Gran # (Auto) 0.03 H Polychromasia 1+ Anisocytosis Present Target Cells 1+ RBC Agglutinates 1+ Peripher Smr Path Cons Haptoglobin Pending PT INR Sodium Potassium Chloride Carbon Dioxide Anion Gap BUN Creatinine Est Cr Clr Drug Dosing Est GFR ( Amer) Est GFR (Non-Af Amer) BUN/Creatinine Ratio Glucose Calcium Phosphorus Magnesium Total Bilirubin AST ALT Alkaline Phosphatase Lactate Dehydrogenase 588 H Total Protein Albumin Globulin Albumin/Globulin Ratio Specimen Hemolysis Urine Total Volume Urine Creatinine Ur Creatinine 24 Hour Ur Total Protein 24 Hr Urine Sodium Ur Sodium 24 Hour Urine Potassium Ur Potassium 24 Hour Urine Calcium Ur Calcium 24 Hr Urine Total Protein Urine Magnesium Ur Magnesium 24 Hr Antibody ID Comment Direct Antiglob Test CHRIS (IgG-AHG) CHRIS, Polyspecific CHRIS C3b, C3d 5 Min 08/01/20 20:15 WBC RBC Hgb Hct MCV MCH MCHC RDW Std Deviation RDW Coeff of Christine Plt Count MPV Immature Gran % (Auto) Neut % (Auto) Lymph % (Auto) Benzie % (Auto) Eos % (Auto) Baso % (Auto) Reticulocyte % (Auto) Neut # (Auto) Lymph # (Auto) Benzie # (Auto) Eos # (Auto) Baso # (Auto) Reticulocyte # Immature Gran # (Auto) Polychromasia Anisocytosis Target Cells RBC Agglutinates Peripher Smr Path Cons Haptoglobin PT INR Sodium Pending Potassium Pending Chloride Pending Carbon Dioxide Pending Anion Gap Pending BUN Pending Creatinine Pending Est Cr Clr Drug Dosing Pending Est GFR ( Amer) Pending Est GFR (Non-Af Amer) Pending BUN/Creatinine Ratio Pending Glucose Pending Calcium Pending Phosphorus Magnesium Total Bilirubin AST ALT Alkaline Phosphatase Lactate Dehydrogenase Total Protein Albumin Globulin Albumin/Globulin Ratio Specimen Hemolysis Urine Total Volume Urine Creatinine Ur Creatinine 24 Hour Ur Total Protein 24 Hr Urine Sodium Ur Sodium 24 Hour Urine Potassium Ur Potassium 24 Hour Urine Calcium Ur Calcium 24 Hr Urine Total Protein Urine Magnesium Ur Magnesium 24 Hr Antibody ID Comment Direct Antiglob Test CHRIS (IgG-AHG) CHRIS, Polyspecific CHRIS C3b, C3d 5 Min
[2020-08-01 20:47] LABS: BUN Creatinine Ratio 9.5 (10-20); Calcium 6.1 mg/dl (8.5-10.1); Creatinine Clr Calc Pharmacy 86.2 ml/min; Est GFR (African American) 85.9; Est GFR (Non-African American) 74.1; Potassium 3.5 mmol/L (3.5-5.1)
[2020-08-01] MEDS ORDERED: methylPREDNISolone 40 MG in SYRINGE 0 ML IV STA (22:09)
[2020-08-01] MEDS: POTASSIUM CHLORIDE / WTR 10 MEQ/100 ML PLCT IV SCH (22:36)
[2020-08-01 22:54] LABS: Base Excess ABG 1.5 mEq/L (-9-1.8); HCO3 ABG 27 mmol/L (19-24); Oxygen Saturation ABG 92.7 % (90-95); PCO2 ABG 46 mmHg (35-46); PO2 ABG 87 mmHg (80-95); pH ABG 7.39 (7.35-7.45)
[2020-08-01 22:56] LABS: Allen Test Pos (Pos)
[2020-08-02] MEDS: POTASSIUM CHLORIDE / WTR 10 MEQ/100 ML PLCT IV SCH ×6 (00:35→06:20)
[2020-08-02] MEDS: CEFEPIME 2,000 MG in SYRINGE 0 ML IV SCH ×2 (01:45→09:50)
[2020-08-02] MEDS: IPRATROPIUM BROMIDE NEB SOLN 0.02% 2.5 ML VIAL INH SCH ×4 (02:57→15:41)
[2020-08-02] MEDS: LEVALBUTEROL 1.25MG/0.5ML NEB INH SCH ×4 (02:58→15:41)
[2020-08-02] MEDS ORDERED: ALBUMIN 25% 50 ML with FUROSEMIDE 40 MG IV ONE (04:34)
[2020-08-02] MEDS ORDERED: methylPREDNISolone 80 MG in SYRINGE 0 ML IV STA (04:35)
[2020-08-02] MEDS ORDERED: SODIUM CHLORIDE 0.9% 250 ML IV PRN (04:36)
--- NOTE | 2020-08-02 04:51 | Communication Note ---
Date of Service: August 02, 2020 Worsening respiratory distress overnight. Patient adamantly refusing BiPAP due to claustrophobia. Patient transferred to ICU for closer monitoring. Will relay to AM provider.
[2020-08-02] MEDS: MAGNESIUM SULFATE / D5W 1 GM/100 ML BAG IV SCH ×2 (04:53→06:19)
[2020-08-02] MEDS ORDERED: ICU PROTOCOL FOR HYPERGLYCEMIA PRN (05:19)
[2020-08-02] MEDS ORDERED: STAT IV Infusion **Titration per Protocol STA ×3 (05:26→12:50)
[2020-08-02] MEDS: DEXMEDETOMIDINE HCL 200 MCG in SODIUM CHLORIDE 0.9% 48 ML IV SCH ×2 (05:54→08:11)
--- NOTE | 2020-08-02 05:56 | Electrocardiogram Report ---
Test Reason : Blood Pressure : / mmHG Vent. Rate : 099 BPM Atrial Rate : 099 BPM P-R Int : 140 ms QRS Dur : 078 ms QT Int : 400 ms P-R-T Axes : 061 036 049 degrees QTc Int : 513 ms Normal sinus rhythm Prolonged QT Abnormal ECG When compared with ECG of 31-JUL-2020 07:04, No significant change was found Confirmed by Michael Mccarty ([id number]) on 08/02/2020 5:55:57 AM Referred By: Andre Siegel Confirmed By:Michael Mccarty
[2020-08-02 05:57] LABS: Base Excess ABG 0.8 mEq/L (-9-1.8); HCO3 ABG 26 mmol/L (19-24); Oxygen Saturation ABG 92.7 % (90-95); PCO2 ABG 44 mmHg (35-46); PO2 ABG 87 mmHg (80-95); pH ABG 7.39 (7.35-7.45)
[2020-08-02 06:09] LABS: Allen Test Pos (Pos)
[2020-08-02 06:14] LABS: Partial Thromboplastin Ratio 1.2; Partial Thromboplastin Time 33.2 Seconds (21.0-31.0)
--- NOTE | 2020-08-02 06:22 | Critical Care Consultation ---
Date of Consultation August 02, 2020 Assessment & Plan (1) Acute and chronic respiratory failure with hypoxia: Reason Critically Ill: 40-year-old female with complex medical history and acute on chronic hypoxic respiratory failure, transferred to ICU for worsening of hypoxia and now requiring BiPAP on Precedex drip. Neuro - Anxiety/mood disorder-patient's Ativan was probably held last night -Started on Precedex drip -Nicotine patch Cardiac - Diastolic heart failureecho 07/31 with EF 55 to 60%, with mild concentric LVH -Currently normotensive without need for vasopressor -40 IV Lasix this a.m. NSR on monitor, continue monitor on telemetry Respiratory - Acute hypoxic respiratory failureunsure etiology at this time, likely autoimmune relatedinterstitial disease? Pneumonia? Pulmonary edema? -Remains active smoker despite being on supplemental oxygen at home -Patient was unable to tolerate bronchoscopy for biopsy due to panic attack -Pulmonology consulted and following - currently on 100% nonrebreather and remains tachypneic, labored breathing, marginal oxygen saturation -Proceeding with BiPAP trial with trade sales assistant and Precedex, patient remains high risk for failure and need for intubation -40 IV Lasix given this a.m. -Currently on 80 mg prednisone, given 80 of Solu-Medrol this a.m. -Continue nebs -Continue antibiotics -We will obtain ABG after initiation of BiPAP GI - Hepatic steatosis/cholecystitissurgery consulted and no indication for surgical intervention at the time being -Etiology congestive hepatopathy versus cirrhosis -No obstruction on imaging -GI following, patient would benefit from liver biopsy but refused transfer to tertiary center -Continue to trend LFTs RENAL/LYTES - Proteinurianephrology following, etiology uncertain at this point -Patient would likely benefit from renal biopsy Electrolyte derangements improved, continue monitor BMPs - Strict I's and O's ENDO - No history of diabetes, TSH within normal limits -ICU hyperglycemic protocol HEME - Macrocytic anemiahemoglobin currently at 7.4, no indication for transfusion at this time -Continue ferrous sulfate, folic acid -Monitor routine CBC Rheumatologyunclear autoimmune process, MICHAEL and other autoimmune work-up thus far is negative -Rheumatology following and findings consistent with cold agglutinin disease -Require transfer to [place] for evaluation for plasmapheresis on last admission -Likely patient would benefit from biopsy of kidneys along, consider transfer to tertiary center -Continue steroids ID - Cefepime and doxy for potential pneumonia/pulmonary coverage and UTI from Klebsiella pneumonia -Procalcitonin negative, afebrile, mild leukocytosis -No growth on blood cultures today LINES/IV ACCESS - Peripheral IVs DVT PROPHYLAXIS - Gallo Love I have personally spent 48 minutes of critical care time in the direct m anagement of this patient. This is a life/limb threatening event. This includes time spent evaluating patient, direct bedside care, chart review, placing orders, interpretation of diagnostic studies, discussion with consultants, patient, and family members, as well as other required patient management activities. This time is exclusive of all separately billable procedures, and teaching time and separate from and in addition to any other critical care service time. Thank you for allowing us to participate in the care of this patient. Please refer to my attending physician's documentation for any further recommendations. (2) SOB (shortness of breath): (3) Macrocytic anemia: (4) Cold agglutinin disease: (5) Acute cholecystitis: (6) Elevated liver enzymes: (7) Hepatic steatosis: (8) Transaminitis: (9) Pulmonary edema: (10) Anemia: (11) Proteinuria: (12) Heart failure with preserved ejection fraction: (13) Wheeze: (14) Elevated INR: (15) Hypocalcemia: (16) Hypomagnesemia: (17) Hypokalemia: (18) Diastolic heart failure: Supervising Physician Co-Signing Physician Notes I have personally evaluated and examined this patient. I agree with assessment and plan of Elizabeth GARDUNO. Please refer to supplemental documentation for additional details. History of Present Illness Attending Physician: Janak Curiel MD History of Present Illness Ms. Guzman is a 40-year-old female with PMH of diastolic CHF, mood disorder, tobacco abuse, hypoxic respiratory insufficiency (on supplemental oxygen at home) who initially presented to the emergency department on 07/30 with com plaints of increased shortness of breath for 2 to 3 days. Patient had recent admission to the hospital in April where she was found to have pleural effusions, pulmonary edema, and hypoxic. She was transferred out shortly into that admission to [place] for evaluation for plasmapheresis. She has previously been worked up for autoimmune disorders and has a family history of SLE on her mother side, however lab work has thus far been negative. In the emergency department she was found to be anemic with hemoglobin 6.4, and had severe electrolyte abnormalities. Chest x-ray revealed diffuse bilateral reticular opacities. She had elevated LFTs and abdominal pain, and CT of the abdomen was consistent with hepatic steatosis and suggestive of acute cholecystitis. Surgery evaluated and no indication for cholecystectomy at that time, and patient was referred to GI. Transfer to tertiary center for a potential transjugular liver biopsy was suggested to the patient who refused transfer to [place]. Pulmonology was consulted to attempt fiberoptic bronchoscopy for rule out of infectious etiology. However, procedure was aborted as patient had a panic attack. Patient also seen by rheumatology, and patient symptoms concern for agglutinin disease. Early this morning I was contacted by the primary team, as patient is now requiring 100% FiO2 on nonrebreather but remains severely tachypneic with marginal oxygen saturation. Patient has refused BiPAP due to anxiety and proclaimed claustrophobia. She was given Lasix as chest x-ray shows progression of bilateral airspace opacities. I did speak extensively with the patient about her anxieties with BiPAP, and she has agreed to a BiPAP trial if she is allowed to have sedation. We are currently starting Precedex drip, as I remember on her last admission she was able to tolerate BiPAP on Precedex prior to transport. I have discussed with the patient that she may need intubated if unable to tolerate BiPAP and she seemed understanding. Currently the patient is alert and oriented and is very anxious. She is tachypneic with respiratory rate in the 30s, however states she is comfortable on the nonrebreather. She denies headache, dizziness, chest pain, palpitations, current abdominal pain, nausea or vomiting or diarrhea, lower extremity swelling. She does report a nonproductive cough which is been ongoing. She states that she was having abdominal pain but none at the moment. We will proceed with Precedex drip and BiPAP trial in combination with diuresis and IV steroids in attempt to improve oxygenation and work of breathing. Will manage in ICU for the time being but patient would likely benefit from transfer to tertiary center. Allergies Allergy/AdvReac Type Severity Reaction Status Date / Time mushroom Allergy Severe ANAPHYLAXIS Verified 07/30/20 14:38 onion Allergy Severe ANAPHYLAXIS Verified 07/30/20 14:38 tramadol Allergy Mild RASH AND Verified 07/30/20 14:38 ITCHING ketorolac Allergy Unknown RASH Verified 07/30/20 14:38 green peppers Allergy Severe ANAPHYLAXIS Uncoded 07/30/20 14:38 Plasencia Pepper Allergy Unknown ANAPHYLAXIS Uncoded 07/30/20 14:38 FROM GREEN PEPPER Home Medications Home Medications Medication Instructions Recorded Confirmed Type albuterol sulfate 2 puff INHALATION Q4 PRN 04/24/20 07/30/20 History buprenorphine-naloxone 1.5 tab SUBLINGUAL UD 04/24/20 07/30/20 History ferrous sulfate 325 mg PO DAILY 07/30/20 07/30/20 History folic acid 1 mg PO DAILY 07/30/20 07/30/20 History furosemide 40 mg PO DAILY 07/30/20 07/30/20 History metoprolol succinate 25 mg PO DAILY 07/30/20 07/30/20 History Patient History Medical History Heart failure with preserved ejection fraction Hepatomegaly Pleural effusion on left Pleural effusion on right Proteinuria Pulmonary edema Transaminitis Family History Mother Lupus (systemic lupus erythematosus) Social History Smoking Status: Current every day smoker Tobacco Type: Cigarettes Cigarettes Per Day: 10; Do You Dip or Chew Tobacco: No; Hx Alcohol Use: Yes Alcohol type: hard liquor Hx Substance Use: No Preferred Language: Vincentian Communication Ability: Effective News Writer Required: No Beliefs That Will Affect Care: None Current Living Situation: Spouse and Family Other Information That Helps Us Care for You: No Feels Safe at Home: Yes Safety Concerns: Feels Safe At This Time Assistive Devices: Oxygen - Continuous Review of Systems Review of Systems: All systems reviewed & are unremarkable except as noted in HPI & below Physical Exam Constitutional: + acute distress, + ill appearing, + obese and + disheveled Eyes: Jaundiced sclera, PERRLA ENMT: external ear and nose normal, oropharynx normal Neck: trachea midline, no thyromegaly Respiratory: Fine crackles auscultated bilaterally in all lung pollack, symmetrical chest wall movement, tachypnea, nonproductive cough, use of accessory muscles Cardiovascular: Rate/Rhythm: regular rate, regular rhythm and + tachycardic Heart Sounds: normal S1 and normal S2; no murmur Extremities: normal capillary refill; no edema Gastrointestinal (Abdomen): Abdomen obese, soft, nontender, bowel sounds normal Neurologic: PERRL, EOMI, accommodation nl, no face palsy, no dysarthria Psychiatric: A+Ox3, euthymic affect Results & Data Results & Data ([facility]) Vital Signs (Past 12 Hours) Vital Signs Temp Pulse Pulse Pulse Resp BP BP 08/02/20 05:31 105 H 27 H 99/46 L 08/02/20 05:19 105 H 08/02/20 05:18 108 H 35 H 119/71 08/02/20 04:30 28 H 08/02/20 03:39 36.8 C 111 H 24 115/77 08/02/20 03:00 107 H 20 08/01/20 23:45 08/01/20 23:07 37.0 C 113 H 20 100/63 08/01/20 23:00 114 H 08/01/20 22:07 115 H 18 08/01/20 19:32 120 H 26 H 08/01/20 19:25 37.4 C 117 H 24 114/74 Pulse Ox 08/02/20 05:31 100 08/02/20 05:19 08/02/20 05:18 95 08/02/20 04:30 86 L 08/02/20 03:39 91 08/02/20 03:00 88 L 08/01/20 23:45 93 08/01/20 23:07 96 08/01/20 23:00 08/01/20 22:07 85 L 08/01/20 19:32 81 L 08/01/20 19:25 97 Coding Level of Care Code Critical Care 1st 30-74 mins Diagnoses Acute and chronic respiratory failure with hypoxia J96.21 SOB (shortness of breath) R06.02 Macrocytic anemia D53.9 Cold agglutinin disease D59.1 Acute cholecystitis K81.0 Elevated liver enzymes R74.8 Hepatic steatosis K76.0 Transaminitis R74.0 Pulmonary edema J81.1 Anemia D64.9 Proteinuria R80.9 Proteinuria type: unspecified Heart failure with preserved ejection fraction I50.30 Wheeze R06.2 Elevated INR R79.1 Hypocalcemia E83.51 Hypomagnesemia E83.42 Hypokalemia E87.6 Diastolic heart failure I50.30 (1) Proteinuria Proteinuria type: unspecified Qualified Code(s): R80.9 - Proteinuria, unspecified
[2020-08-02 06:43] LABS: BUN Creatinine Ratio 9.8 (10-20); Calcium 7.4 mg/dl (8.5-10.1); Creatinine Clr Calc Pharmacy 72.7 ml/min; Est GFR (African American) 69.9; Est GFR (Non-African American) 60.3; Magnesium 1.6 mg/dl (1.8-2.4); Potassium 4.1 mmol/L (3.5-5.1)
[2020-08-02 06:51] LABS: Hematocrit (blood only) 22.6 % (37-47); Hemoglobin 7.4 g/dL (12.0-16.0); Mean Corpuscular Hemoglobin 33.9 pg (25-34); Mean Corpuscular Hgb Conc 32.7 g/dL (32-36); Mean Corpuscular Volume 103.7 fL (80-100); Platelet Count 212 K/uL (130-400); RDW Standard Deviation 85.2 fL (36.4-46.3); Red Blood Count 2.18 M/uL (4.2-5.4); White Blood Count 11.78 K/uL (4.8-10.8)
[2020-08-02] MEDS: LORazepam 0.5 MG TAB PO PRN (07:08)
[2020-08-02] MEDS ORDERED: RAPID SEQUENCE INDUCTION BAG ONE ×2 (07:13→12:16)
[2020-08-02 07:23] LABS: Agglutinated RBC 1+; Anisocytosis Present; Basophils # (auto) 0.02 K/uL (0-0.2); Basophils % (auto) 0.2 %; Immature Granulocytes # (auto) 0.03 K/uL (0.00-0.02); Immature Granulocytes % (auto) 0.3 %; Lymphocytes # (auto) 0.55 K/uL (1.2-3.4); Lymphocytes % (auto) 4.7 %; Monocytes # (auto) 0.21 K/uL (0.11-0.59); Monocytes % (auto) 1.8 %; Neutrophils # (auto) 10.97 K/uL (1.4-6.5); Target Cells 1+
[2020-08-02 07:34] LABS: iSTAT Allen Test Pass; iSTAT Art Bld Gas pCO2 Correct 44 mmHg (35-46); iSTAT Art Bld Gas pH Corrected 7.403 (7.35-7.45); iSTAT Arterial Blood Gas HCO3 28 meg/L (19-24); iSTAT Arterial Blood Gas pCO2 46 mmHg (35-46); iSTAT Arterial Blood Gas pH 7.39 (7.35-7.45); iSTAT Arterial Blood Gas pO2 51 mmHg (80-95); iSTAT Arterial Blood Gas pO2 C 48; iSTAT Carbon Dioxide 29 mmol/L (24-31); iSTAT FiO2 100 %; iSTAT Hematocrit 22 % (37-47); iSTAT Hemoglobin 7.5 g/dl (12.0-16.0); iSTAT Potassium 4.2 mmol/L (3.3-5.0); iSTAT Site R Radial; iSTAT Sodium 139 mmol/L (135-144)
--- NOTE | 2020-08-02 07:51 | XRay Report ---
XR chest 1V portable HISTORY: Hypoxia. COMPARISON: Chest 07/24/2020. FINDINGS: No pneumothorax. No pleural effusions. The heart remains mildly enlarged. Bilateral airspac e opacities persist. IMPRESSION: No change in extensive bilateral airspace opacities. ACT 112: Negative or not required by law. Electronically signed by: Jose L Gold M.D. 08/02/2020 7:50 AM
[2020-08-02] MEDS: DOXYCYCLINE HYCLATE 100 MG in DEXTROSE 5% 100 ML IV SCH (07:55)
--- NOTE | 2020-08-02 08:07 | Communication Note ---
Date of Service: August 02, 2020 Patient was received in signout. Patient is medically complex and previous admission in April resulted in transfer to [facility] for probable rheumatologic emergency with multi-system organ failure/involvement. Patient's echo in April revealed mild pulmonary hypertension with an estimated PA pressure 35 normal left ventricular size and function and normal right ventricular function. Reviewed the previous cardiology notes I would be inclined to believe the patient pathology is not related primarily to the cardiac system and certainly shows aspects of pulmonary hypertension. Additionally she was noted to have hepatic steatosis hepatomegaly and transaminitis which was not explained with laboratory analysis, at no point was a liver biopsy able to be obtained. Previous hepatology plan was to include a transjugular liver biopsy with portal pressure measurements. Patient has been anemic, with regards to her previously positive hepatitis C antibody subsequent RNA qualitative testing did not reveal hepatitis C. HIV has remained negative. Patient was also noted to have a mood disorder and required Precedex to facilitate noninvasive mechanical ventilation. Patient presented to [facility] emergency department on July 30 with a chief complaint of shortness of breath. She has been seen by nephrology for proteinuria, gastroenterology for hepatomegaly, surgery for possible cholecystitis, pulmonary for possible pulmonary arterial hypertension, rheumatology. I have reviewed her echocardiogram which is largely unchanged noted mild concentric left ventricular hypertrophy. Reason Critically Ill: Acute hypoxic respiratory failure, acute liver failure, proteinuria and chronic anemia of unclear etiology PLAN: Neuro: Mood disorder -Currently on Precedex attempted to facilitate noninvasive mechanical ventilation -Could consider switch to low-dose ketamine infusion to facilitate noninvasive ventilation and procedures Suboxone therapy -UDS negative Resp: Acute hypoxic respiratory failure -Possible/probable pulmonary hypertension of unclear etiology -History of bilateral pleural effusions -Patient would definitely benefit from bronchoscopy with tissue sampling -Fungal antigens pending, COVID and bio fire negative -Venous Doppler study negative, CT chest: Nonspecific septal thickening with groundglass opacities, mild mediastinal adenopathy -On cefepime and doxycycline for pulmonary coverage Tobacco abuse -Written for nicotine patch CV: Documentation of diastolic heart failure, ejection fraction preserved heart failure -Certainly several etiologies could be consistent with poor forward flow leading to a congestive hepatology, kidney disease and pulmonary disease; however, 1 would anticipate more echocardiographic findings consistent with longstanding disease. I am concerned there are additional etiologies outside of the cardiovascular system. -Limited echocardiogram with evaluation for hepatopulmonary shunting Fluids/Renal: Hypomagnesemia -Receiving replacement Proteinuria -Would likely benefit from renal biopsies to rule out Goodpasture disease, nephrotic and nephritic syndrome ID: Cefepime doxycycline Acute urinary tract infection -Pansensitive Klebsiella pneumonia Blood cultures pending: No growth to date Will order sputum if able to produce Previous pleural fluid cultures reviewed GI/Nutrition: Hepatomegaly Transaminitis -Nuclear hepatobiliary scan demonstrated no evidence for acute cholecystitis, mild delayed excretion of radiotracer in the common bile duct Hypoalbuminemia Heme: Anemia: Macrocytic -Folate level previously low, now within normal limits -Haptoglobin pending -Reviewed peripheral smear: Largely unremarkable Elevated INR: Unclear etiology -Viral hepatitis negative, additional serologies pending DVT prophylaxis: Lovenox Endocrine/rheumatology: ICU hyperglycemia protocol 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 At this point we have reached a similar crocs at which we have been unable to obtain tissue specimens to advance the patient's care. Patient has been started on high-dose steroids which I think is appropriate. If this is autoimmune and origin this should likely lead to some improvement however I feel the patient would be best treated at a tertiary care Medical Center who can perform liver biopsies and has advanced treatment modalities for this young female at high risk with young children. I will discuss this additionally with her and the patient. Clinical update: Patient agreed to transfer to [facility]. In talking with adjuster they preferred secured airway, we have intubated the patient. She has very minimal functional reserve. She desaturated with intubation and desaturated into the 80s for approximately 2 to 3 minutes before recovering. We attempted pressure control ventilation which did not have an adequate tidal volume, ultimately we were able to ventilate her and oxygenate on a respiratory rate of 26 PEEP of 12, tidal volume of 375 and FiO2 of 100% her blood gas revealed a respiratory acidosis with a pH of 7.25. Later when the [facility] team was preparing the patient for transfer she rapidly desaturated with release of airway pressure. We did a recruitment maneuver consisting of a pressure/PEEP of 35 for 45 seconds and then transitioned to [id number] ventilation, adjustments were made to the [facility] portable ventilator which allow the patient to maintain baseline saturation in the low 90s. I discussed the case with the receiving physician both agreed that this appeared to be the best opportunity to transport the patient and would likely be moving towards ECMO in the near future. I have personally spent 165 minutes of critical care time in the direct m anagement of this patient. This is a life/limb threatening event. This includes time spent evaluating patient, direct bedside care, chart review, placing orders, interpretation of diagnostic studies, discussion with consultants, patient, and/or family members regarding treatment decisions, as well as other required patient management activities. This time is exclusive of all separately billable procedures, and teaching time and separate from and in addition to any other critical care service time. Coding Level of Care Code Critical Care js addt'l 30 min
[2020-08-02] MEDS ORDERED: KETAMINE HCL INJ 50 MG/ML 10 ML VIAL IV STA ×2 (08:25→13:31)
[2020-08-02] MEDS ORDERED: KETAMINE HCL / NSS 500 MG/500 ML BAG IV SCH (08:30)
[2020-08-02] MEDS: NICOTINE 7 MG/24 HR TDSY TD SCH (08:43)
[2020-08-02] MEDS: FOLIC ACID 1 MG TAB PO SCH (08:43)
[2020-08-02] MEDS: FERROUS SULFATE 325 MG TAB PO SCH (08:43)
[2020-08-02] MEDS: BUPRENORPHINE/NALOXONE 8/2 MG TAB SL SCH (08:44)
[2020-08-02] MEDS: CALCIUM CARBONATE 1250MG TAB PO SCH (08:44)
--- NOTE | 2020-08-02 08:52 | Pulmonology Progress Note ---
Date of Service August 02, 2020 Assessment & Plan (1) Pneumonitis: 40-year-old female with a past medical history of tobacco abuse, diastolic CHF, obesity and opiate addiction presenting to the hospital due to increasing shortness of breath. CT chest 07/30/2020: Shows bilateral interstitial thickening as well as extensive groundglass opacities more on the right side. Minimal pleural effusion. Patient had similar finding in the past as well. Mild mediastinal lymphadenopathy 2D echo: EF 55-60%, no diastolic dysfunction --Acute hypoxic respiratory failure Etiology is still unclear Patient had lymphatic pleural effusion in the past. With significant proteinuria and LFT abnormalities Patient is an active smoker. Patient had extensive autoimmune work-up done on 04/26/2020 which was negative for everything. Differential includes NSIP from possible autoimmune disease, hypersensitivity pneumonitis, RB ILD or DIP. DAH is a possibility as well although patient has no hemoptysis. Patient was scheduled for bronchoscopy yesterday 08/01/2020 but she was not able to tolerate it as she was requiring more sedation the blood pressure was borderline. No gross bleeding was appreciated at that time and then limited bronchoscopy. Patient is currently on 60 mg of Solu-Medrol as per the recommendation of hematology. I doubt this is fungal infection given patient never had a use in the failure to begin with and the pleural effusion was lymphocytic in the past. Patient's hep C antibody was positive but RNA was negative. --Conjugated bilirubinemia I doubt this is from her hemolysis given that 80% of it is direct bilirubin Hemolysis will usually give you indirect bilirubinemia. --Mild pulmonary hypertension Likely type III 2D echo shows good ejection fraction Plan: Continue with Solu-Medrol thinking that underlying etiology is most likely autoimmune related. Bronchoscopy will help with BAL and to rule out DAH although patient has no hemoptysis. Hemoglobin has been stable. She is already on steroids. Recommend Protonix as prophylaxis when she is on high-dose steroids and in acute stress. Transbronchial biopsy will not be helpful in patient with NSIP-like pattern. VATS biopsy should be considered in this patient. We do not have thoracic surgery here. Possible transfer the patient to a tertiary center should be thought of. Plan from the ICU transport assistant was possible intubation of the patient. If the patient gets intubated then BAL will be sent for culture. Pulmonary plan was discussed with Dr. Jhaveri. (2) Proteinuria: Proteinuria type: unspecified Qualified Code(s): R80.9 - Proteinuria, unspecified (3) Heart failure with preserved ejection fraction: (4) Elevated liver enzymes: (5) SOB (shortness of breath): (6) Smoker: (7) Morbid obesity: Admission and Anticipated Discharge Date Admission Date: July 30, 2020 Subjective Patient seen and examined at bedside. Overnight patient was upgraded to the ICU because of worsening oxygen demand and tachypnea. At the time of examination patient had just gotten ketamine loading dose. She was calm. Breathing in the low 20s saturating 96% on nonrebreather. Patient denied any chest pain. She was following simple commands. Review of Systems Review of Systems: All systems reviewed & are unremarkable except as noted in Subjective Physical Exam Physical Exam: Constitutional: No acute distress HEENT: EOMI, PERRLA Respiratory system: Decreased air entry bilaterally, no wheeze, no rhonchi positive crackles bilateral lower lobes CVS: S1-S2 positive, no murmurs or gallops Abdomen: Soft, nontender, nondistended, positive bowel sounds x4, obese Extremities: +2 pulses bilaterally radialis/ dorsalis pedis, no cyanosis, no edema Neuro: Awake alert oriented to self Psych: Normal mood and affect, please make note patient got ketamine prior to examination G/U: Positive [place] Skin: no rashes, warm and dry Lymphatic: no cervical or axillary lymphadenopathy Results & Data Results & Data ([facility]) Vital Signs (Past 12 Hours) Vital Signs Temp Pulse Pulse Pulse Pulse Resp BP 08/02/20 07:25 96 H 27 H 08/02/20 05:31 105 H 27 H 99/46 L 08/02/20 05:19 105 H 08/02/20 05:18 108 H 35 H 119/71 08/02/20 04:30 28 H 08/02/20 03:39 36.8 C 111 H 24 08/02/20 03:00 107 H 20 08/01/20 23:45 08/01/20 23:07 37.0 C 113 H 20 08/01/20 23:00 114 H 08/01/20 22:07 115 H 18 BP Pulse Ox 08/02/20 07:25 89 L 08/02/20 05:31 100 08/02/20 05:19 08/02/20 05:18 95 08/02/20 04:30 86 L 08/02/20 03:39 115/77 91 08/02/20 03:00 88 L 08/01/20 23:45 93 08/01/20 23:07 100/63 96 08/01/20 23:00 08/01/20 22:07 85 L 08/02/20 05:49 08/02/20 05:49 PG Care Time/CCT Total # of Minutes Spent Total Time Spent with Patient: Total time spent is greater than 50% in coordination of care (as documented) at patient's floor/unit and/or counseling patient: Coding Level of Care Code 93786 Subseq Hosp Care Lvl 3 Diagnoses Pneumonitis J18.9 Proteinuria R80.9 Proteinuria type: unspecified Heart failure with preserved ejection fraction I50.30 Elevated liver enzymes R74.8 SOB (shortness of breath) R06.02 Smoker F17.200 Morbid obesity E66.01
[2020-08-02 09:00] LABS: INR 1.5 (0.9-1.1); Prothrombin Time 15.5 Seconds (9.0-12.0)
[2020-08-02] MEDS ORDERED: ENOXAPARIN INJ 40 MG/0.4 ML SYR SQ SCH (09:00)
[2020-08-02 09:19] LABS: Albumin Level 2.2 gm/dl (3.4-5.0); Bilirubin,Total 8.9 mg/dl (0.2-1); Total Protein 7.6 gm/dl (6.4-8.2)
--- NOTE | 2020-08-02 09:36 | Gastroenterology Progress Note ---
Date of Service August 02, 2020 Assessment & Plan (1) Elevated liver enzymes: Patient presenting with shortness of breath thought to be related to congestive heart failure. GI consulted for evaluation of her elevated liver enzymes. Differentials considered include: congestive hepatopathy,vs. less likely cirrhosis with pulmonary complications. Though she denies any overuse of alcohol, if she is drinking, she may also have alcoholic hepatitis as AST>ALT, and tender enlarged liver on exam. Being overweight, she likely also has some component of non alcoholic fatty liver disease. Thus far serology for other causes of liver disease such as infectious, autoimmune, Omer's, and alpha-1 antitrypsin deficiency have been negative. Recommendations: Appreciate nephrology and rheumatology input. Recommend liver bx to evaluate for cause of fatty liver and elevated LFTs. Would be most beneficial if done by transjugular approach as portal pressures could be measured. This is only available in [place]. Recommend transfer. Present on Admission?: Yes Admission and Anticipated Discharge Date Admission Date: July 30, 2020 Supervising Physician Co-Signing Physician Notes Attending attestation I have seen, examined this patient, and agree with the findings and above by our mid-level provider SHAAN Rodriguez, with the following additions: - Ms. Guzman has worsened overnight in regards to respiratory status with an increasing oxygen requirement as well as increasing anxiety. - Her total bilirubin is increased today as well as her mild AST. I am unsure of the etiology of this at this time. there is no evidence of biliary obstruction on a high-quality MRI.Certainly the differential diagnosis would include things such as hemolysis, given her anemia, but also with the new added history of concern of alcoholism and or increased alcohol intake alcoholic hepatitis would also be a possibility. This would not explain her respiratory compromise. As well as her findings of nephrotic syndrome. Given her x-ray findings of concern of infection in the setting of potential alcohol induced hepatitis, steroids would likely be contraindicated, however the been initiated for the possibility of an overlapping Autoimmune issue. I would monitor very closely for the possibility of infection, would follow Rheumatology as well as Nephrology input. Her bubble study yesterday was not conclusive for a shunt as would be seen in the setting of hepatopulmonary syndrome. therefore I do not think that her pulmonary issues related to a primary liver issue. Given her complexity as well as unclear diagnosis, transjugular liver biopsy would be helpful if your concern of right heart failure, pulmonary hypertension, and or the etiology of her liver disease. This would necessitate transfer. I would discuss case with Rheumatology as well as Nephrology. - Daily LFTs, supportive care, encourage nutrition - Call if questions Subjective Ms. Elaine Guzman is a 40 yr old female pt admitted on 07/30 for SOB in the setting of CHF, proteinuria, chronic macrocytic anemia: Hb 6.4 on arrival, received 2 units of RBCs yesterday Hb stable post transfusion at 7.4. GI is consulted for elevated LFTs: Bili 6.7 on arrival->8.1 max ->7.1 ->8.9 today AST >ALT, AST 83 yesterday ->96 today, ALT 18->22, Alk Phos 112. US 07/30 with gallbladder wall thickening and dilated CBD Initially US with suggestion of obstruction but HIDA, CT, MRCP without obstruction/stones. + hepatomegaly, splenomegaly, mild colon wall thickening Respiratory decompensation last night. Transferred to ICU. Agitated and medicated - pt unable to answer questions today. Nurse who is providing her care today knows here from the community, knows her mother, and tells me that the family believes that the pt may be drinking alcohol frequently. Review of Systems Review of Systems: ROS gathered yesterday. Unable to obtain responsed from pt today. Constitutional: + sweats, + fatigue, + weakness and + weight gain; no fever Eyes: + problem reported (icterus noted on arrival); no eye pain Respiratory: + cough (began this morning), + dyspnea and + dyspnea on exertion (with amb to BR) Cardiovascular: + edema (reports abdominal fluid accumulation "around my love handles"); no chest pain and no palpitations Gastrointestinal: + abdominal pain (some mild RUQ discomfort); no heartburn, no nausea, no vomiting, no blood in stools and no melena Musculoskeletal: + body aches; no back pain, no neck pain and no muscle weakness Integumentary: + yellowing of the skin and + change in skin color (jaundice); no rash, no lesions, no dry skin and no pruritus Neurologic: + generalized weakness; no gait abnormality and no dizziness No asterixes Endocrine: + fatigue; no polydipsia, no polyphagia, no polyuria and no flushing Allergy / Immunological: + cough; no GI upset with certain foods, no lip swelling and no tongue swelling Physical Exam Constitutional: WD/WN, vitals as above + ill appearing and + obese Eyes: + scleral abnormality (icterus) and PERRL ENMT: external ear and nose normal, oropharynx normal poor dentition Neck: trachea midline, no thyromegaly Respiratory: Auscultation: + diminished lung sounds (mildly, at bases); no crackles and no rales O2 on via high flow mask; pt with mildly labored breathing, pulse sat at 89% Cardiovascular: RRR, no murmur, no edema Gastrointestinal (Abdomen): Inspection/Auscultation: abdomen not distended Percussion/Palpation: abdomen soft and + hepatomegaly (palpable at 3 finger widths below the right costal border) Musculoskeletal: no cyanosis or clubbing, extremities motor strength 5/5 Skin: + jaundice Neurologic: PERRL, EOMI, accommodation nl, no face palsy, no dysarthria Psychiatric: Responsive to verbal and tactile stimulation but not talking. Appears mildly agitated, fighting the O2 mask, moving around in bed. Lymphatic: no cervical or axillary lymphadenopathy Results & Data ([facility]) Vital Signs (Past 12 Hours) Vital Signs Temp Pulse Pulse Pulse Pulse Resp BP 08/02/20 07:25 96 H 27 H 08/02/20 05:31 105 H 27 H 99/46 L 08/02/20 05:19 105 H 08/02/20 05:18 108 H 35 H 119/71 08/02/20 04:30 28 H 08/02/20 03:39 36.8 C 111 H 24 08/02/20 03:00 107 H 20 08/01/20 23:45 08/01/20 23:07 37.0 C 113 H 20 08/01/20 23:00 114 H 08/01/20 22:07 115 H 18 BP Pulse Ox 08/02/20 07:25 89 L 08/02/20 05:31 100 08/02/20 05:19 08/02/20 05:18 95 08/02/20 04:30 86 L 08/02/20 03:39 115/77 91 08/02/20 03:00 88 L 08/01/20 23:45 93 08/01/20 23:07 100/63 96 08/01/20 23:00 08/01/20 22:07 85 L Laboratory Results WBC 11, Hb 7.4, Hct 22.6, Platelets 2121, Na 132, K 4.2, BUN11, Cr 115, glucose 144. T Bili 8.9, AST 96, ALT 21, Alk Phos 112. Diagnostic Findings See HPI for US, HIDA, CT, MRCP
[2020-08-02] MEDS ORDERED: FAMOTIDINE 20 MG in SYRINGE 3 ML IV SCH (10:30)
[2020-08-02] MEDS ORDERED: methylPREDNISolone 60 MG in SYRINGE 0 ML IV SCH (11:00)
[2020-08-02] MEDS ORDERED: Nursing to Pharmacy Communication SCH (11:15)
--- NOTE | 2020-08-02 12:30 | Hospitalist Progress Note ---
Date of Service August 02, 2020 Assessment & Plan (1) Acute and chronic respiratory failure with hypoxia: MULTIFACTORIAL: POSSIBLE INTERSTITIAL LUNG DISEASE, PNEUMONIA, VOLUME OVERLOAD Bronchoscopy unable to be performed due to agitation repeat CXR: possible pulmonary edema 640 mg given overnight with good diuresis Nebs q4h started Prednisone 80 mg started 08/01/2020, transition to Solu-Medrol 60 mg IV on 08/02/2020 Also on ketamine IV for anxiety Patient with worsening respiratory status, now at 15 L of O2 via nonrebreather mask Patient will be placed on mechanical ventilator prior to transfer to [facility] for further management and care I have discussed the case with Dr. Sandoval, toolmaker helper of [facility] PNEUMONIA? COVID screen negative Bio fire negative Blood cultures: Pending, negative so far Continue cefepime + Doxy ANEMIA, HEMOLYTIC, SECONDARY TO COLD AGGLUTININ DISEASE peripheral smear: revealed above Hg improved from 6.4 on admission to 7.5 after 3 units PRBC discussed with Hem/Onc Dr. Oneil recommend Prednisone 80mg po daily, now on IV Solu-Medrol for interstitial lung disease monitor CBC CHF EXACERBATION HISTORY OF CHF WITH PRESERVED EJECTION FRACTION secondary to volume overload from pRBCS, IV meds On Lasix 20 mg p.o. daily at home additional Lasix 40mg given overnight with good diuresis INDIRECT BILIRUBINEMIA, LIKELY SECONDARY TO HEMOLYSIS MRCP: no biliary obstruction HIDA scan: negative may need Liver Biopsy per GI ELEVATED INR likely coagulopathy from underlying liver disease INR 1.4-1.5 no signs of bleeding monitor LOW K, CA, MAG from poor oral intake Improved continue repletion and monitoring Nephro on Board PROTEINURIA Clear etiology at this point BUN/creatinine normal Immunologic work-up from 04/23/2020 unrevealing may need renal biopsy per Nephro UNDERLYING AUTOIMMUNE PROCESS? consulted Rheum ELEVATED QT INTERVAL from electrolyte disturbance monitor KLEBSIELLA UTI ff up final urine culture on cefepime, Doxy DVT PROPHYLAXIS SCDs in light of hemolytic anemia DISPOSITION Transfer to [facility] for further tertiary level of care Admission and Anticipated Discharge Date Admission Date: July 30, 2020 Subjective ff up for acute on acute on chronic hypoxic respiratory failure, etc. Events of overnight noted Seen at the bedside, on 15 L of oxygen via oxygen mask Not in distress but states she feels anxious, with some dyspnea denies chest pain, dizziness, headache, abdominal pain no other symptoms Review of Systems Review of Systems: All systems reviewed & are unremarkable except as noted in HPI & below Physical Exam Physical Exam: General- oriented x 3, not in distress, speaks in sentences with mild effort and accessory muscle use Eyes- anicteric Neck- no JVD Lungs- diminished breath sounds bilaterally no wheezing mild rhonchi bilateral bases Heart- normal rate, regular rhythm; no murmurs Abdomen- normal bowel sounds, nondistended, soft, nontender Extremities- no pretibial edema, no calf tenderness Neuro- alert, oriented x 3; no gross focal neurologic deficits Skin- warm & dry Results & Data Results & Data ([facility]) Vital Signs (Past 12 Hours) Vital Signs Temp Pulse Pulse Pulse Resp BP BP 08/02/20 11:39 104 H 08/02/20 11:31 95 H 121/53 L 08/02/20 11:02 86 36 H 91/35 L 08/02/20 10:41 91 H 32 H 08/02/20 10:30 88 42 H 103/60 08/02/20 10:26 91 H 32 H 08/02/20 10:15 92 H 32 H 08/02/20 10:00 92 H 24 90/62 L 08/02/20 09:31 90 44 H 104/51 L 08/02/20 08:31 94 H 39 H 93/46 L 08/02/20 08:00 36.9 C 89 42 H 89/52 L 08/02/20 07:25 96 H 27 H 08/02/20 07:01 98 H 49 H 97/54 L 08/02/20 05:31 105 H 27 H 99/46 L 08/02/20 05:19 105 H 08/02/20 05:18 108 H 35 H 119/71 08/02/20 04:30 28 H 08/02/20 03:39 36.8 C 111 H 24 115/77 08/02/20 03:00 107 H 20 Pulse Ox 08/02/20 11:39 08/02/20 11:31 91 08/02/20 11:02 88 L 08/02/20 10:41 91 08/02/20 10:30 92 08/02/20 10:26 92 08/02/20 10:15 92 08/02/20 10:00 95 08/02/20 09:31 88 L 08/02/20 08:31 94 08/02/20 08:00 86 L 08/02/20 07:25 89 L 08/02/20 07:01 92 08/02/20 05:31 100 08/02/20 05:19 08/02/20 05:18 95 08/02/20 04:30 86 L 08/02/20 03:39 91 08/02/20 03:00 88 L
[2020-08-02] MEDS ORDERED: VECURONIUM BROMIDE 10 MG VIAL IV STA ×2 (12:35→16:27)
[2020-08-02] MEDS ORDERED: LORazepam 2 MG/4 ML VIAL IV STA ×2 (12:40→12:46)
[2020-08-02] MEDS ORDERED: MIDAZOLAM BOLUS FROM BAG IV PRN (12:50)
[2020-08-02] MEDS ORDERED: MIDAZOLAM HCL 125 MG/250 ML BAG IV PRN (12:50)
[2020-08-02] MEDS ORDERED: MIDAZOLAM HCL 125MG/250ML D5W ONE ×2 (12:51→12:53)
--- NOTE | 2020-08-02 13:00 | Discharge Summary ---
Date of Service August 02, 2020 Admission HPI Per Admitting Provider Ms. Guzman is a 40-year-old female with recent diagnosis of chronic heart failure, with preserved ejection fraction, at that time she presented in the hospital with pleural effusions, edema and shortness of breath. Her hospital stay was very short and she was transferred emergently to [facility]. She was intubated during her flight to [facility]. At that time she was also found anemic, interestingly her hep C antibodies were positive, as well as she was found to have proteinuria. She was discharged from [place] on Lasix, metoprolol, folic acid, iron supplement. Patient is also using Suboxone for several years. When she was discharged from [place], she was discharged with supplemental oxygen, which she says that she uses between 2-1/2 L to 4 L. Occasionally she does not use oxygen, she says that when she is at rest sometimes "she does not need it". She did obtain pulse ox and frequently checks her oxygen saturations levels. She followed-up with her primary care doctor, as well as cardiology, and pulmonary medicine. It was also recommended that given her proteinuria she would follow-up with nephrology, the appointment is scheduled however she has not been seen yet. Pulmonary medicine recommended PFTs and sleep study. Per cardiology, she was supposed to continue her Lasix and metoprolol, chest x-ray and echocardiogram were obtained, pleural effusions were resolved. She now presents with increased shortness of breath for the past 2 to 3 days. She states that she weighs herself daily, and her optimal weight is about 196 pounds. She reports that when she was hospitalized last time, she was about 20 pounds heavier. She denies any recent increase in her weight or edema. She reports cramping in her extremities, which can be quite debilitating for her and it " takes her breath away". She also reports extreme weakness for past 2 to 3 days. In addition she reported right upper quadrant/epigastric pain and spasm that she first noticed yesterday, now she only reports mild discomfort in that area. She has very poor appetite, and says that she has not been able to eat much lately. She denies any nausea or vomiting. She also denies any bleeding, denies blood in the stool. In the ED she was found to have hemoglobin of 6.4, potassium 2.0, magnesium 0.06, INR 1.6, low calcium, elevated alk phos, T bili, ALT, COVID was also tested and was negative. Chest x-ray was obtained, no pleural effusions now, however there are diffuse bilateral reticular opacities. Abdominal ultrasound was obtained, showed hepatomegaly with hepatic steatosis, distended gallbladder with layering sludge, wall thickening and equivocal pericholecystic fluid. Distended common bile duct. Patient is currently lying in bed, in no acute distress, using supplemental oxygen. She is able to speak in full sentences. She is alert and oriented and answering questions appropriately. Admission Exam Per Admitting Provider Physical Exam: Middle-aged female lying in bed, in no acute distress, using supplemental oxygen, 4 L Constitutional: WD/WN, vitals as above no acute distress Eyes: PERRL, conjunctivae normal, anicteric sclerae EOM intact bilaterally ENMT: external ear and nose normal, oropharynx normal Mouth: + dentition abnormality (Poor dentition) Sclera icteric Neck: trachea midline, no thyromegaly normal visual inspection Respiratory: normal respiratory effort; does not use accessory muscles Auscultation: + rhonchi (Mild diffuse); no crackles and no wheezes Cardiovascular: RRR, no murmur, no edema Chest (Breasts): Chest: normal inspection of chest Gastrointestinal (Abdomen): Inspection/Auscultation: + abdomen distended and normal bowel sounds Percussion/Palpation: + abdomen tender (Right upper quadrant, epigastric) and abdomen soft; no guarding and abdomen not rigid Musculoskeletal: Head/Neck/Chest: normocephalic and head atraumatic Extremities: extremities normal to inspection Skin: no rashes, warm and dry Neurologic: PERRL, EOMI, accommodation nl, no face palsy, no dysarthria moves all extremities Psychiatric: A+Ox3, euthymic affect Principal Diagnosis Acute and chronic respiratory failure with hypoxia: MULTIFACTORIAL: POSSIBLE INTERSTITIAL LUNG DISEASE, PNEUMONIA, VOLUME OVERLOAD Discharge Exam General- oriented x 3, not in distress, speaks in sentences with mild effort and accessory muscle use Eyes- anicteric Neck- no JVD Lungs- diminished breath sounds bilaterally no wheezing mild rhonchi bilateral bases Heart- normal rate, regular rhythm; no murmurs Abdomen- normal bowel sounds, nondistended, soft, nontender Extremities- no pretibial edema, no calf tenderness Neuro- alert, oriented x 3; no gross focal neurologic deficits Skin- warm & dry Discharge Data Allergies Allergy/AdvReac Type Severity Reaction Status Date / Time mushroom Allergy Severe ANAPHYLAXIS Verified 07/30/20 14:38 onion Allergy Severe ANAPHYLAXIS Verified 07/30/20 14:38 tramadol Allergy Mild RASH AND Verified 07/30/20 14:38 ITCHING ketorolac Allergy Unknown RASH Verified 07/30/20 14:38 green peppers Allergy Severe ANAPHYLAXIS Uncoded 07/30/20 14:38 Plasencia Pepper Allergy Unknown ANAPHYLAXIS Uncoded 07/30/20 14:38 FROM GREEN PEPPER Consultations 07/30/20 16:24 ED Decision to Admit Stat 07/30/20 18:53 Consult Gastroenterology Stat Consult General Surgery Stat Consult Nephrology Routine 07/31/20 12:19 Consult Pulmonology Routine 08/01/20 15:51 Consult Rheumatology Routine 08/02/20 05:19 Consult Case Management - Discharge Planning Routine Consult Motor Vehicle Dispatcher Routine 08/02/20 12:12 Burn CD for patient Stat Procedures Performed Operation Date: 07/31/20 07:30 <No data on this case meets the specified criteria> Operation Date: 08/01/20 10:00 Actual Procedures p Attempted Bronchoscopy(Bilateral) - Moy Mcdonough MD Ordered Studies 07/30/20 15:46 US gallbladder Stat 07/30/20 18:41 MR MRCP Urgent 07/30/20 18:53 CT abd pelvis wo con Urgent 07/30/20 18:53 CT chest wo con Urgent 07/31/20 12:40 US venous doppler LE RT Stat Hospital Course (1) Acute and chronic respiratory failure with hypoxia: MULTIFACTORIAL: POSSIBLE INTERSTITIAL LUNG DISEASE, PNEUMONIA, VOLUME OVERLOAD Bronchoscopy unable to be performed due to agitation repeat CXR: possible pulmonary edema 640 mg given overnight with good diuresis Nebs q4h started Prednisone 80 mg started 08/01/2020, transition to Solu-Medrol 60 mg IV on 08/02/2020 Also on ketamine IV for anxiety Patient with worsening respiratory status, now at 15 L of O2 via nonrebreather mask Patient will be placed on mechanical ventilator prior to transfer to [facility] for further management and care I have discussed the case with Dr. Sandoval, mending carrier of [facility] PNEUMONIA? COVID screen negative Bio fire negative Blood cultures: Pending, negative so far Continue cefepime + Doxy ANEMIA, HEMOLYTIC, SECONDARY TO COLD AGGLUTININ DISEASE peripheral smear: revealed above Hg improved from 6.4 on admission to 7.5 after 3 units PRBC discussed with Hem/Onc Dr. Oneil recommend Prednisone 80mg po daily, now on IV Solu-Medrol for interstitial lung disease monitor CBC CHF EXACERBATION HISTORY OF CHF WITH PRESERVED EJECTION FRACTION secondary to volume overload from pRBCS, IV meds On Lasix 20 mg p.o. daily at home additional Lasix 40mg given overnight with good diuresis INDIRECT BILIRUBINEMIA, LIKELY SECONDARY TO HEMOLYSIS MRCP: no biliary obstruction HIDA scan: negative may need Liver Biopsy per GI ELEVATED INR likely coagulopathy from underlying liver disease INR 1.4-1.5 no signs of bleeding monitor LOW K, CA, MAG from poor oral intake Improved continue repletion and monitoring Nephro on Board PROTEINURIA Clear etiology at this point BUN/creatinine normal Immunologic work-up from 04/23/2020 unrevealing may need renal biopsy per Nephro UNDERLYING AUTOIMMUNE PROCESS? 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 Pending Studies at Discharge: Yes Studies:: Final urine and blood cultures; pending serologic studies Stand-Alone Forms: [employer] Skilled Items Patient informed of condition?: Yes DNR: No Discharge Level of Care: Other Communicable Disease: No Discharge Prognosis: Other Lines: Peripheral IV Urinary Catheter: Yes Medications and DC Order Prescriptions: New cefepime 2 gram Recon Soln 2 g Not Applicable UD Qty: 10 RF: 0 ipratropium bromide 0.02 % Solution 0.5 mg inhalation Q4R 30 Days RF: 0 nicotine 7 mg/24 hr Patch 24 Hour 7 mg transdermal QAM 30 Days RF: 0 enoxaparin 40 mg/0.4 mL Syringe 40 mg subcut QAM 30 Days Qty: 12 RF: 0 levalbuterol HCl 1.25 mg/0.5 mL Solution For Nebulization 1.25 mg inhalation Q4R 30 Days RF: 0 Continued albuterol sulfate 90 mcg/actuation Hfa Aerosol Inhaler 2 puff INHALATION Q4 PRN (Reason: Shortness Of Breath Or Wheezing) RF: 0 buprenorphine-naloxone 8-2 mg tablet, sublingual 1.5 tab SUBLINGUAL UD RF: 0 furosemide 40 mg tablet 40 mg PO DAILY RF: 0 ferrous sulfate 325 mg (65 mg iron) tablet 325 mg PO DAILY RF: 0 folic acid 1 mg tablet 1 mg PO DAILY RF: 0 metoprolol succinate 25 mg tablet extended release 24 hr 25 mg PO DAILY RF: 0 Discharge Orders: Discharge Order (Routine); Ordered 08/02/20 Ordered By: Janak Curiel Admission Data Admit Date/Time: 07/30/20 17:27 Attending Provider: Janak Curiel Admit Provider: Demetris Sanchez Primary Care Provider: Andre Siegel Other Providers: Moy Mcdonough ; Demetris Sanchez ; Irlanda Woods ; Chelsey Hayes ; Rosy Aguilar ; Brynn Schrader I.
--- NOTE | 2020-08-02 13:08 | XRay Report ---
XR chest 1V portable CLINICAL HISTORY: Intubation RESPIRATORY FAILURE COMPARISON STUDY: 08/02/2020 FINDINGS: There is an endotracheal tube 22 mm above the iván. There are persistent diffuse bilatera l pulmonary airspace opacities.[No pleural effusions are visualized. There is no pneumothorax. IMPRESSION: 1. Persistent extensive bilateral pulmonary airspace opacities 2. Interval placement of an endotracheal tube 22 mm above the iván. ACT 112: Negative or not required by law. Electronically signed by: Aamir Fiore M.D. 08/02/2020 1:07 PM
[2020-08-02 13:29] LABS: iSTAT Allen Test Pass; iSTAT Art Bld Gas pCO2 Correct 67 mmHg (35-46); iSTAT Art Bld Gas pH Corrected 7.247 (7.35-7.45); iSTAT Arterial Blood Gas HCO3 29 meg/L (19-24); iSTAT Arterial Blood Gas pCO2 67 mmHg (35-46); iSTAT Arterial Blood Gas pH 7.25 (7.35-7.45); iSTAT Arterial Blood Gas pO2 122 mmHg (80-95); iSTAT Arterial Blood Gas pO2 C 121; iSTAT Carbon Dioxide 31 mmol/L (24-31); iSTAT FiO2 100 %; iSTAT Hematocrit 23 % (37-47); iSTAT Hemoglobin 7.8 g/dl (12.0-16.0); iSTAT Site R Radial; iSTAT Sodium 141 mmol/L (135-144)
--- NOTE | 2020-08-02 17:22 | Procedure Note ---
Procedure Note Date of Service August 02, 2020 Procedure Date: Noted above Procedure: Endotracheal intubation Pre-procedure Diagnosis: Acute hypoxic respiratory failure Post-procedure Diagnosis: same as above Prior to Procedure: Informed Consent: emergent Attending Staff: Jose Jhaveri DO The identity of the patient was confirmed and a bedside time out was performed. Description of Procedure: Patient was evaluated and required intubation for impending respiratory failure. The patient was prepared in the usual fashion. A for a glide scope was used. A 7.5 mm inner diameter endotrachial tube was placed endotracheally to 20 cm at the teeth. A grade 1 view was obtained. The endotracheal tube was noted to pass through the vocal cords. Chest rise was bilateral. Bilateral breath sounds were heard without air sounds in the abdomen. Mist was noted in the endotracheal tube. End-tidal CO2 measurement was positive. Chest x-ray shows proper endotracheal tube placement. Complications: Patient desaturated to mid 80s, whole intubation procedure took less than 30 seconds and was successful on first pass. She required significant PEEP to recover. Whole hypoxic episode was approximately 2 to 3 minutes. Findings: Not applicable Specimens: Not applicable Estimated blood loss: Zero Coding CPT Codes Resuscitation - Resuscitation: [id number] Endotracheal Intubation, emergency ([id number]) [facility] [place] Procedure Codes (Charges) Resuscitation Resuscitation: [id number] Endotracheal Intubation, emergency
[2020-08-03] MEDS ORDERED: predniSONE 20 MG TAB PO SCH (17:00)
[2020-08-04 07:04] LABS: Alpha 1 Antitrypsin >300 mg/dL (83-199); Ceruloplasmin 32 mg/dL (18-53); Free Kappa 126.3 mg/L (3.3-19.4); Free Lambda 105.5 mg/L (5.7-26.3); Hepatitis A Antibody IgM NON-REACTIVE (NON-REACTIVE); Hepatitis A Antibody Total REACTIVE (NON-REACTIVE); Hepatitis B Core Antibody IgM NON-REACTIVE (NON-REACTIVE); Hepatitis BE Antibody Nonreactive; Hepatitis BE Antigen Nonreactive
[2020-08-04 18:02] LABS: Fungitell (1-3)-B-D-Glucan 32 pg/mL
[2020-08-05 11:00] LABS: EBV DNA Quant PCR <200 copies/mL (<200); EBV DNA Quant Source Whole Blood
[2020-08-08 04:46] LABS: % Cryocrit DNR; Cryoglobulin, QL Negative (Negative)
== END 2020-08-02 17:03 | disposition short-term general hospital (02) | DRG 208 ==
LOC: ED 14:11 → 2S 17:27 → SUATTDRO 17:27 → 2S 18:20 → 1E 08-02 05:07

== ENCOUNTER 2021-04-04 14:25 | Inpatient (IN) ==
--- NOTE | 2021-04-04 15:22 | XRay Report ---
XR chest 1V portable HISTORY: 41 years-old Female Dyspnea acute shortness of breath COMPARISON: Chest radiograph 08/02/2020 TECHNIQUE: Portable AP view of the chest FINDINGS: Cardiac silhouette is enlarged. Pulmonary vascular congestion with mild reticular interstitial opacit ies. No pneumothorax or large pleural effusion. No lobar airspace consolidation. The bones appear jack ssly intact. IMPRESSION: Cardiomegaly with reticular interstitial opacities suggestive of pulmonary edema versus a n interstitial pneumonitis. ACT 112: Negative or not required by law. The above report was generated using voice recognition software. It may contain grammatical, syntax o r spelling errors. Electronically signed by: Abe Quan M.D. 04/04/2021 3:21 PM
[2021-04-04] MEDS ORDERED: FUROSEMIDE 40 MG/4 ML VIAL IV STA (15:36)
[2021-04-04 15:47] LABS: Basophils # (auto) 0.05 K/uL (0-0.2); Basophils % (auto) 0.4 %; Eosinophils # (auto) 0.17 K/uL (0-0.5); Eosinophils % (auto) 1.3 %; Hematocrit (blood only) 23.5 % (37-47); Hemoglobin 7.7 g/dL (12.0-16.0); INR 1.4 (0.9-1.1); Immature Granulocytes # (auto) 0.03 K/uL (0.00-0.02); Immature Granulocytes % (auto) 0.2 %; Lymphocytes # (auto) 1.51 K/uL (1.2-3.4); Lymphocytes % (auto) 11.4 %; Mean Corpuscular Hemoglobin 33.8 pg (25-34); Mean Corpuscular Hgb Conc 32.8 g/dL (32-36); Mean Corpuscular Volume 103.1 fL (80-100); Mean Platelet Volume 10.3 fL (7.4-10.4); Monocytes % (auto) 6.8 %; Neutrophils # (auto) 10.64 K/uL (1.4-6.5); Neutrophils % (auto) 79.9 %; Partial Thromboplastin Ratio 1.1; Partial Thromboplastin Time 29.5 Seconds (21.0-31.0); Platelet Count 226 K/uL (130-400); Prothrombin Time 13.7 Seconds (9.0-12.0); RDW Coefficient of Variation 16.1 % (11.5-14.5); RDW Standard Deviation 60.1 fL (36.4-46.3); Red Blood Count 2.28 M/uL (4.2-5.4)
[2021-04-04 16:02] LABS: Alanine Aminotransferase 19 U/L (12-78); Albumin Globulin Ratio 0.4 (0.9-2); Albumin Level 2.5 gm/dl (3.4-5.0); Alkaline Phosphatase 158 U/L (45-117); Aspartate Aminotransferase 81 U/L (15-37); BUN Creatinine Ratio 7.4 (10-20); Bilirubin,Total 2.7 mg/dl (0.2-1); Blood Urea Nitrogen 11 mg/dl (7-18); Calcium 7.2 mg/dl (8.5-10.1); Carbon Dioxide 33 mmol/L (21-32); Chloride 96 mmol/L (98-107); Creatinine Clr Calc Pharmacy 53.3 ml/min; Est GFR (African American) 51.2 ml/min; Est GFR (Non-African American) 44.1 ml/min; Globulin 5.8 gm/dl (2.5-4.0); Glucose 82 mg/dl (70-99); Potassium 3.2 mmol/L (3.5-5.1); Sodium 138 mmol/L (136-145); Total Protein 8.3 gm/dl (6.4-8.2); Troponin I < 0.015 ng/ml (0-0.045)
[2021-04-04 16:27] LABS: Target Cells 1+
[2021-04-04] MEDS: MAGNESIUM SULFATE / D5W 1 GM/100 ML BAG IV SCH ×4 (16:27→20:19)
--- NOTE | 2021-04-04 16:41 | Electrocardiogram Report ---
Test Reason : Blood Pressure : / mmHG Vent. Rate : 092 BPM Atrial Rate : 092 BPM P-R Int : 156 ms QRS Dur : 078 ms QT Int : 382 ms P-R-T Axes : 062 055 060 degrees QTc Int : 472 ms Normal sinus rhythm Normal ECG When compared with ECG of 01-AUG-2020 06:47, No significant change was found Confirmed by Shree Lopez ([id number]) on 04/04/2021 4:40:50 PM Referred By: REFERRED SELF Confirmed By:Shree Lopez
[2021-04-04 16:59] LABS: Appearance Urine Cloudy (Clear); Bacteria Urine Automated Negative (Negative); Blood Urine 3+ (Negative); Color Urine Orange; Epithelial Cell Urine Auto >30 /lpf (0-5); Glucose Urine UA Negative (Negative); Ketones Urine Negative (Negative); Leukocyte Esterase Urine Trace (Negative); Nitrite Urine Negative (Negative); Protein Urine 3+ (Negative); Specific Gravity Urine 1.013 (1.000-1.030); Urobilinogen Urine Negative (Negative)
[2021-04-04 17:06] LABS: Bilirubin Urine 1+ (Negative)
[2021-04-04 17:18] LABS: RBC Urine Automated >30 /hpf (0-4)
--- NOTE | 2021-04-04 17:25 | Emergency Department Note ---
History of Present Illness General Chief complaint: Shortness of Breath/Dyspnea Stated complaint: SOB, EDEMA TO LOWER EXTREMITIES Source: patient and RN notes reviewed Mode of arrival: EMS Limitations: no limitations History of Present Illness Provider complaint: Bilateral lower extremity edema, shortness of breath This patient is a 41-year old female with a complex past medical history including heart failure, respiratory failure, oxygen dependency and cirrhosis who presents to the emergency department with complaints of worsening bilateral lower extremity edema. Patient also complains that she is weak and has not really been able to get out of bed or to exert herself for many weeks but particularly her last several days. She wears oxygen at 5 L all the time and states she has great difficulty ambulating up the stairs. She feels short winded. She states she did not even get out of bed yesterday. She denies any fevers or significant cough, vomiting or diarrhea. Home Medications Medication Instructions Recorded Confirmed Type albuterol sulfate 2 puff INHALATION Q4 PRN 04/24/20 04/04/21 History buprenorphine-naloxone 1 tab SUBLINGUAL DAILY 04/24/20 04/04/21 History folic acid 1 mg PO BID 07/30/20 04/04/21 History metoprolol succinate 25 mg PO DAILY 07/30/20 04/04/21 History fluoxetine 10 mg PO DAILY 04/04/21 04/04/21 History furosemide 80 mg PO BID 04/04/21 04/04/21 History potassium chloride 10 meq PO DAILY 04/04/21 04/04/21 History Allergies Allergy/AdvReac Type Severity Reaction Status Date / Time green pepper Allergy Severe Anaphylaxis Verified 04/04/21 23:16 mushroom Allergy Severe ANAPHYLAXIS Verified 04/04/21 15:58 onion Allergy Severe ANAPHYLAXIS Verified 04/04/21 15:58 tramadol Allergy Mild RASH AND Verified 04/04/21 15:58 ITCHING ketorolac Allergy Unknown RASH Verified 04/04/21 15:58 Past Med/Surg History Medical History Heart failure with preserved ejection fraction Hepatomegaly Pleural effusion on left Pleural effusion on right Proteinuria Pulmonary edema Transaminitis Tricuspid regurgitation Family History Mother Lupus (systemic lupus erythematosus) Social History Smoking Status: Current every day smoker Tobacco Type: Cigarettes Cigarettes Per Day: 10; Do You Dip or Chew Tobacco: No; Tobacco Cessation Education Requested by Patient: No Hx Alcohol Use: Yes Alcohol type: other Hx Substance Use: Yes Last Used Substance Other:: 04/03/2021 medical marijuana S ubstance Use Type Other:: former pain killers. Is on Saboxen and medical marijuana Preferred Language: Irish Communication Ability: Effective Invertebrate Paleontologist Required: No Beliefs That Will Affect Care: None Current Living Situation: Family Current Living Situation Comment: fiancee and 2 kids Other Information That Helps Us Care for You: No Feels Safe at Home: Yes Safety Concerns: Feels Safe At This Time Assistive Devices: Oxygen - Continuous Review of Systems See HPI for pertinent positives & negatives. and A total of 10 systems reviewed and were otherwise negative Physical Exam Vital Signs Vital Signs - 24 hr 04/04/21 14:40 04/04/21 14:44 04/04/21 15:39 Temperature 37.5 C Temperature Source Oral Pulse Rate 100 H Pulse Rhythm Regular Pulse Strength Normal Respiratory Rate 24 Respiratory Effort / Characteristics Non-Labored Spontaneous Respiratory Depth Shallow Normal Respiratory Pattern Regular Regular Blood Pressure 130/71 Blood Pressure Mean 90 Pulse Oximetry 100 Oxygen Delivery Method Nasal Cannula Nasal Cannula Nasal Cannula Oxygen Flow Rate 5 5 5 Sepsis Recent Fever Within 48 Hours No Sepsis New/Unexplained Change in Mental Status No Sepsis Action Taken by Nursing No Action Required Vital signs reviewed. General: Chronically ill-appearing, deconditioned 41-year-old female, no significant distress HEENT: No scleral icterus, PERRLA, neck supple. Atraumatic. Cardiovascular: Regular rate and rhythm, no extra sounds. Pulmonary: Coarse breath sounds at the bases bilaterally with diminished breath sounds at the apex. Nasal cannula oxygen in place Abdomen: Soft, nontender, nondistended, positive bowel sounds. Musculoskeletal: Atraumatic, minimal peripheral edema Neurologic: Patient awake alert and oriented x 3, full strength in all 4 ex tremities. Cranial nerves 2 through 12 grossly intact. Skin: Warm, dry, no rash Course Administered Medications Buprenorphine/Naloxone (Buprenorphine/Naloxone 8/2 Mg Tab) 1 tab SL Q24H ALLY Stop: 05/05/21 08:59 Last Admin: 04/05/21 08:16 Dose: 1 tab Documented by: [id number] Folic Acid (Folic Acid 1 Mg Tab) 1 mg PO BID [facility] Stop: 05/05/21 08:59 Last Admin: 04/05/21 22:27 Dose: 1 mg Documented by: [id number] Admin: 04/05/21 08:10 Dose: 1 mg Documented by: [id number] Ceftriaxone Sodium 2,000 mg/ (Dextrose) 70 mls @ 100 mls/hr IV Q24H [facility]; Protocol Stop: 04/12/21 08:59 Last Infusion: 04/05/21 10:28 Dose: 0 mls/hr Documented by: [id number] Admin: 04/05/21 08:09 Dose: 100 mls/hr Documented by: [id number] Doxycycline Hyclate 100 mg/ (Dextrose) 110 mls @ 50 mls/hr IV Q12H [facility] Stop: 04/12/21 07:29 Last Infusion: 04/06/21 00:00 Dose: 0 mls/hr Documented by: [id number] Admin: 04/05/21 17:38 Dose: 50 mls/hr Documented by: [id number] Infusion: 04/05/21 10:28 Dose: 0 mls/hr Documented by: [id number] Admin: 04/05/21 08:09 Dose: 50 mls/hr Documented by: [id number] Lorazepam (Lorazepam 1 Mg Tab) 1 mg PO Q4 PRN PRN Reason: Anxiety Stop: 05/05/21 14:33 Last Admin: 04/06/21 00:23 Dose: 1 mg Documented by: [id number] Admin: 04/05/21 19:58 Dose: 1 mg Documented by: [id number] Metoprolol Succinate (Metoprolol Succ 25mg Ext Rel Tab) 25 mg PO DAILY [facility] Stop: 05/05/21 08:59 Last Admin: 04/05/21 08:11 Dose: 25 mg Documented by: [id number] Miscellaneous (Remove Nicoderm Patch) 1 ea N/A DAILY@0859 [facility] Stop: 05/05/21 08:58 Last Admin: 04/05/21 08:11 Dose: 1 ea Documented by: [id number] Nicotine (Nicotine 7 Mg/24 Hr Tdsy) 7 mg TD DAILY [facility] Stop: 05/04/21 23:24 Last Admin: 04/05/21 08:11 Dose: 7 mg Documented by: [id number] Admin: 04/04/21 23:46 Dose: 7 mg Documented by: [id number] Potassium Chloride (Potassium Chloride 10 Meq Tabcr) 10 meq PO DAILY ALLY Stop: 05/05/21 08:59 Last Admin: 04/05/21 08:10 Dose: 10 meq Documented by: [id number] Discontinued Medications Fluoxetine HCl (Fluoxetine Hcl 10 Mg Cap) 10 mg PO DAILY ALLY Stop: 05/05/21 08:59 Last Admin: 04/05/21 08:10 Dose: 10 mg Documented by: [id number] Furosemide (Furosemide 40 Mg/4 Ml Vial) 40 mg IV NOW STA Stop: 04/04/21 15:37 Last Admin: 04/04/21 15:48 Dose: 40 mg Documented by: [id number] Magnesium Sulfate/Dextrose (Magnesium Sulfate / D5w) 1 gm in 100 mls @ 200 mls/ hr IV Q30M ALLY Stop: 04/04/21 17:07 Last Infusion: 04/04/21 17:40 Dose: 0 mls/hr Documented by: [id number] Admin: 04/04/21 16:50 Dose: 200 mls/hr Documented by: [id number] Infusion: 04/04/21 16:50 Dose: 200 mls/hr Documented by: [id number] Admin: 04/04/21 16:27 Dose: 200 mls/hr Documented by: [id number] Magnesium Sulfate/Dextrose (Magnesium Sulfate / D5w) 1 gm in 100 mls @ 200 mls/hr IV Q30M ALLY Stop: 04/04/21 20:40 Last Infusion: 04/04/21 21:16 Dose: 0 mls/hr Documented by: [id number] Admin: 04/04/21 20:19 Dose: 200 mls/hr Documented by: [id number] Infusion: 04/04/21 20:19 Dose: 200 mls/hr Documented by: [id number] Admin: 04/04/21 19:53 Dose: 200 mls/hr Documented by: [id number] Lorazepam (Lorazepam 0.5 Mg Tab) 0.5 mg PO NOW STA Stop: 04/04/21 23:22 Last Admin: 04/04/21 23:34 Dose: 0.5 mg Documented by: [id number] Lorazepam (Lorazepam 1 Mg Tab) Confirm Administered Dose 2 mg .ROUTE .STK-MED ONE Stop: 04/05/21 13:45 Last Admin: 04/05/21 13:45 Dose: 2 mg Documented by: [id number] Ondansetron HCl (Ondansetron Inj 2 Mg/Ml 2 Ml Vial) 4 mg IV NOW STA Stop: 04/04/21 20:16 Last Admin: 04/04/21 20:19 Dose: 4 mg Documented by: [id number] Ondansetron HCl (Ondansetron Inj 2 Mg/Ml 2 Ml Vial) Confirm Administered Dose 4 mg .ROUTE .STK-MED ONE Stop: 04/04/21 20:17 Last Admin: 04/04/21 20:19 Dose: Not Given Documented by: [id number] Pneumococcal Polyvalent Vaccine (Pneumococcal Polysaccharides 25 Mcg/0.5 Ml Vial/Syr) 25 mcg IM .ONCE ONE Stop: 04/05/21 08:01 Last Admin: 04/05/21 08:09 Dose: Not Given Documented by: [id number] Potassium Chloride (Potassium Chloride 20 Meq/15 Ml Udc) 40 meq PO NOW STA Stop: 04/04/21 19:42 Last Admin: 04/04/21 19:53 Dose: 40 meq Documented by: [id number] Potassium Chloride (Potassium Chloride 10 Meq Tabcr) 40 meq PO NOW STA Stop: 04/05/21 07:22 Last Admin: 04/05/21 08:08 Dose: 40 meq Documented by: [id number] Medical Decision Making Differential Diagnosis Infection, dehydration, metabolic abnormality, hypo/hyperglycemia, electrolyte disturbance, anemia, hypoxia, cardiac sources, intracerebral event, toxicologic, neurologic, as well as other pathologies. Medical Records Attestation: I reviewed the patient's medical records. Home Medications Current Medication List: was personally reviewed by me Laboratory Data Attestation: I reviewed the patient's lab results. Result diagrams: 04/05/21 06:50 04/05/21 05:32 Lab Results 04/04/21 04/04/21 04/04/21 Range/Units 14:37 14:37 14:37 WBC 13.30 H (4.8-10.8) K/uL RBC 2.28 L (4.2-5.4) M/uL Hgb 7.7 L (12.0-16.0) g/dL Hct 23.5 L (37-47) % MCV 103.1 H (80-100) fL MCH 33.8 (25-34) pg MCHC 32.8 (32-36) g/dL RDW Std Deviation 60.1 H (36.4-46.3) fL RDW Coeff of Christine 16.1 H (11.5-14.5) % Plt Count 226 (130-400) K/uL MPV 10.3 (7.4-10.4) fL Immature Gran % (Auto) 0.2 % Neut % (Auto) 79.9 % Lymph % (Auto) 11.4 % [place] % (Auto) 6.8 % Eos % (Auto) 1.3 % Baso % (Auto) 0.4 % Neut # (Auto) 10.64 H (1.4-6.5) K/uL Lymph # (Auto) 1.51 (1.2-3.4) K/uL [place] # (Auto) 0.90 H (0.11-0.59) K/uL Eos # (Auto) 0.17 (0-0.5) K/uL Baso # (Auto) 0.05 (0-0.2) K/uL Immature Gran # (Auto) 0.03 H (0.00-0.02) K/uL Target Cells 1+ PT 13.7 H (9.0-12.0) Seconds INR 1.4 H (0.9-1.1) APTT 29.5 (21.0-31.0) Seconds PTT Ratio 1.1 Sodium 138 (136-145) mmol/L Potassium 3.2 L (3.5-5.1) mmol/L Chloride 96 L (98-107) mmol/L Carbon Dioxide 33 H (21-32) mmol/L Anion Gap 8.0 (3-11) BUN 11 (7-18) mg/dl Creatinine 1.48 H (0.6-1.2) mg/dl Est Cr Clr Drug Dosing 53.3 ml/min Est GFR ( Amer) 51.2 ml/min Est GFR (Non-Af Amer) 44.1 ml/min BUN/Creatinine Ratio 7.4 L (10-20) Glucose 82 (70-99) mg/dl Calcium 7.2 L (8.5-10.1) mg/dl Magnesium 1.0 L (1.8-2.4) mg/dl Total Bilirubin 2.7 H (0.2-1) mg/dl AST 81 H (15-37) U/L ALT 19 (12-78) U/L Alkaline Phosphatase 158 H (45-117) U/L Troponin I < 0.015 (0-0.045) ng/ml Total Protein 8.3 H (6.4-8.2) gm/dl Albumin 2.5 L (3.4-5.0) gm/dl Globulin 5.8 H (2.5-4.0) gm/dl Albumin/Globulin Ratio 0.4 L (0.9-2) Urine Color Urine Appearance (Clear) Urine pH (4.5-7.5) Ur Specific [place] (1.000-1.030) Urine Protein (Negative) Urine Glucose (UA) (Negative) Urine Ketones (Negative) Urine Blood (Negative) Urine Nitrite (Negative) Urine Bilirubin (Negative) Urine Urobilinogen (Negative) Ur Leukocyte Esterase (Negative) Urine WBC (Auto) (0-5) /hpf Urine RBC (Auto) (0-4) /hpf U Hyaline Cast (Auto) (0-5) /lpf U Epithel Cells (Auto) (0-5) /lpf Urine Bacteria (Auto) (Negative) COVID-19 Eval Order SARS-CoV-2 (PCR) (Negative) Blood Type Antibody Screen Crossmatch 04/04/21 04/04/21 04/04/21 Range/Units 15:15 15:15 16:20 WBC (4.8-10.8) K/uL RBC (4.2-5.4) M/uL Hgb (12.0-16.0) g/dL Hct (37-47) % MCV (80-100) fL MCH (25-34) pg MCHC (32-36) g/dL RDW Std Deviation (36.4-46.3) fL RDW Coeff of Christine (11.5-14.5) % Plt Count (130-400) K/uL MPV (7.4-10.4) fL Immature Gran % (Auto) % Neut % (Auto) % Lymph % (Auto) % [place] % (Auto) % Eos % (Auto) % Baso % (Auto) % Neut # (Auto) (1.4-6.5) K/uL Lymph # (Auto) (1.2-3.4) K/uL [place] # (Auto) (0.11-0.59) K/uL Eos # (Auto) (0-0.5) K/uL Baso # (Auto) (0-0.2) K/uL Immature Gran # (Auto) (0.00-0.02) K/uL Target Cells PT (9.0-12.0) Seconds INR (0.9-1.1) APTT (21.0-31.0) Seconds PTT Ratio Sodium (136-145) mmol/L Potassium (3.5-5.1) mmol/L Chloride (98-107) mmol/L Carbon Dioxide (21-32) mmol/L Anion Gap (3-11) BUN (7-18) mg/dl Creatinine (0.6-1.2) mg/dl Est Cr Clr Drug Dosing ml/min Est GFR ( Amer) ml/min Est GFR (Non-Af Amer) ml/min BUN/Creatinine Ratio (10-20) Glucose (70-99) mg/dl Calcium (8.5-10.1) mg/dl Magnesium (1.8-2.4) mg/dl Total Bilirubin (0.2-1) mg/dl AST (15-37) U/L ALT (12-78) U/L Alkaline Phosphatase (45-117) U/L Troponin I (0-0.045) ng/ml Total Protein (6.4-8.2) gm/dl Albumin (3.4-5.0) gm/dl Globulin (2.5-4.0) gm/dl Albumin/Globulin Ratio (0.9-2) Urine Color [place] Urine Appearance Cloudy A (Clear) Urine pH 6.0 (4.5-7.5) Ur Specific [place] 1.013 (1.000-1.030) Urine Protein 3+ H (Negative) Urine Glucose (UA) Negative (Negative) Urine Ketones Negative (Negative) Urine Blood 3+ H (Negative) Urine Nitrite Negative (Negative) Urine Bilirubin 1+ H (Negative) Urine Urobilinogen Negative (Negative) Ur Leukocyte Esterase Trace H (Negative) Urine WBC (Auto) 10-30 H (0-5) /hpf Urine RBC (Auto) >30 H (0-4) /hpf U Hyaline Cast (Auto) 1-5 (0-5) /lpf U Epithel Cells (Auto) >30 H (0-5) /lpf Urine Bacteria (Auto) Negative (Negative) COVID-19 Eval Order Covid19 at [facility] SARS-CoV-2 (PCR) NEGATIVE (Negative) Blood Type Antibody Screen Crossmatch 04/04/21 Range/Units 19:50 WBC (4.8-10.8) K/uL RBC (4.2-5.4) M/uL Hgb (12.0-16.0) g/dL Hct (37-47) % MCV (80-100) fL MCH (25-34) pg MCHC (32-36) g/dL RDW Std Deviation (36.4-46.3) fL RDW Coeff of Christine (11.5-14.5) % Plt Count (130-400) K/uL MPV (7.4-10.4) fL Immature Gran % (Auto) % Neut % (Auto) % Lymph % (Auto) % [place] % (Auto) % Eos % (Auto) % Baso % (Auto) % Neut # (Auto) (1.4-6.5) K/uL Lymph # (Auto) (1.2-3.4) K/uL [place] # (Auto) (0.11-0.59) K/uL Eos # (Auto) (0-0.5) K/uL Baso # (Auto) (0-0.2) K/uL Immature Gran # (Auto) (0.00-0.02) K/uL Target Cells PT (9.0-12.0) Seconds INR (0.9-1.1) APTT (21.0-31.0) Seconds PTT Ratio Sodium (136-145) mmol/L Potassium (3.5-5.1) mmol/L Chloride (98-107) mmol/L Carbon Dioxide (21-32) mmol/L Anion Gap (3-11) BUN (7-18) mg/dl Creatinine (0.6-1.2) mg/dl Est Cr Clr Drug Dosing ml/min Est GFR ( Amer) ml/min Est GFR (Non-Af Amer) ml/min BUN/Creatinine Ratio (10-20) Glucose (70-99) mg/dl Calcium (8.5-10.1) mg/dl Magnesium (1.8-2.4) mg/dl Total Bilirubin (0.2-1) mg/dl AST (15-37) U/L ALT (12-78) U/L Alkaline Phosphatase (45-117) U/L Troponin I (0-0.045) ng/ml Total Protein (6.4-8.2) gm/dl Albumin (3.4-5.0) gm/dl Globulin (2.5-4.0) gm/dl Albumin/Globulin Ratio (0.9-2) Urine Color Urine Appearance (Clear) Urine pH (4.5-7.5) Ur Specific [place] (1.000-1.030) Urine Protein (Negative) Urine Glucose (UA) (Negative) Urine Ketones (Negative) Urine Blood (Negative) Urine Nitrite (Negative) Urine Bilirubin (Negative) Urine Urobilinogen (Negative) Ur Leukocyte Esterase (Negative) Urine WBC (Auto) (0-5) /hpf Urine RBC (Auto) (0-4) /hpf U Hyaline Cast (Auto) (0-5) /lpf U Epithel Cells (Auto) (0-5) /lpf Urine Bacteria (Auto) (Negative) COVID-19 Eval Order SARS-CoV-2 (PCR) (Negative) Blood Type A Positive Antibody Screen NEGATIVE Crossmatch See Detail Imaging Data Radiologist's Impression: Chest X-Ray 04/04/21 15:07 XR chest 1V portable HISTORY: 41 years-old Female Dyspnea acute shortness of breath COMPARISON: Chest radiograph 08/02/2020 TECHNIQUE: Portable AP view of the chest FINDINGS: Cardiac silhouette is enlarged. Pulmonary vascular congestion with mild reticular interstitial opacities. No pneumothorax or large pleural effusion. No lobar airspace consolidation. The bones appear grossly intact. IMPRESSION: Cardiomegaly with reticular interstitial opacities suggestive of pulmonary edema versus an interstitial pneumonitis. ACT 112: Negative or not required by law. The above report was generated using voice recognition software. It may contain grammatical, syntax or spelling errors. Electronically signed by: Abe Quan M.D. 04/04/2021 3:21 PM ECG Data Attestation: I personally reviewed and interpreted this ECG as follows: Indication: + SOB/dyspnea Rate (beats per minute): 92 Rhythm: + normal sinus ECG Intervals/blocks: + Normal QRS and + Prolonged QT (472) ECG Lynn: + Normal ECG ST segments: + Normal ST segments ECG Findings: no PACs and no PVCs Blood Pressure Blood Pressure Findings: Low blood pressure Blood Pressure Disposition: further management by hospitalist CHANELLE Narrative This patient was evaluated and appeared to be in no significant distress. IV access was obtained and laboratory work was drawn. An order for cardiac monitoring was placed and the patient is noted to be in a normal sinus rhythm at 89 bpm. Chest x-ray was performed and reveals pulmonary edema versus pneumonitis. Patient's laboratory work reveals a mild leukocytosis, anemia with a hemoglobin of 7.7 and renal insufficiency with a creatinine of 1.48. UA reveals evidence of blood and will be sent for culture. Patient was medicated with 40 mg of Lasix IV. She was given a total of 4 g of IV magnesium for a profoundly depleted magnesium level of 1.0. She was given a dose of potassium 40 mEq p.o. Patient's case was discussed with the hospitalist service who will evaluate the patient for admission and further management. Impression & Plan Pulmonary edema, Hypomagnesemia, Acute hypokalemia Discharge Plan Visit Data Chief Complaint: Shortness of Breath/Dyspnea Stated Complaint: SOB, EDEMA TO LOWER EXTREMITIES ED Provider: Alicia Goldstein Discharge Problem: Pulmonary edema, Hypomagnesemia, Acute hypokalemia Patient Disposition: Admitted As Inpatient Discharge Instructions Interventions: ED Discharge Assessment Last Done: 04/04/21 22:38 Discharge Problem: Pulmonary edema Qualifiers: Chronicity: acute Qualified Code(s): J81.0 - Acute pulmonary edema
[2021-04-04] MEDS ORDERED: POTASSIUM CHLORIDE 20 MEQ/15 ML UDC PO STA (19:41)
[2021-04-04] MEDS ORDERED: ONDANSETRON INJ 2 MG/ML 2 ML VIAL IV STA (20:15)
[2021-04-04] MEDS ORDERED: ONDANSETRON INJ 2 MG/ML 2 ML VIAL ONE (20:16)
[2021-04-04] MEDS ORDERED: ALBUTEROL HFA 8 GM INHALER INH PRN (23:01)
[2021-04-04] MEDS ORDERED: NITROGLYCERIN SL 0.4 MG/TAB TAB SL PRN (23:01)
[2021-04-04] MEDS ORDERED: ACETAMINOPHEN 325 MG TAB PO PRN (23:01)
[2021-04-04] MEDS ORDERED: ONDANSETRON INJ 2 MG/ML 2 ML VIAL IV PRN (23:01)
[2021-04-04] MEDS ORDERED: LORazepam 0.5 MG TAB PO STA (23:21)
[2021-04-04] MEDS: NICOTINE 7 MG/24 HR TDSY TD SCH (23:46)
--- NOTE | 2021-04-05 00:58 | History and Physical Report ---
DATE OF ADMISSION: 04/04/2021 CHIEF COMPLAINT: Shortness of breath. HISTORY OF PRESENT ILLNESS: This is a 41-year-old female on chronic respiratory failure with hypoxia, on 5 liters oxygen all the time, history of polycystic ovaries, hypothyroidism, obstructive sleep apnea, chronic right-sided heart failure, cirrhosis of liver, posttraumatic stress disorder, cold agglutinin disease, anemia, depression, hepatitis C virus carrier state, tobacco use disorder, transaminitis, anxiety, medical marijuana use, proteinuria. She was in the hospital in July 2020 with heart failure with preserved EF, at that time presented with pleural effusion, pulmonary edema edema and shortness of breath and she was emergently transferred to [facility]. She was intubated on the [facility]. She was also found to be anemic. Hepatitis C antibody positive. Has proteinuria. As per the hem/onc notes from [facility], she was discharged on Lasix, metoprolol, folic acid, iron supplement. The patient is also on Suboxone for many years. At that time, she was discharged on 2-4 liters of oxygen. At that time, her hemoglobin was 6.4, potassium was 2, magnesium was low at 0.6 COVID was negative. In the hospital, she was treated with cardiology with aggressive diuresis. Se had right and left heart catheterization, which showed no pulmonary hypertension, mildly elevated pulmonary artery pressures, but no coronary artery disease. Her heart failure was presumed to be due to high output state, likely from profound anemia. She was also found to have cold agglutinin autoimmune hemolytic anemia, etiology unclear, could be from hepatitis C. She received multiple packed blood cells, but later was treated more conservatively because of concern of hemolysis with blood products. Hematology was consulted and she received plasmapheresis and was administered rituximab and she also received rituximab as outpatient. Imaging studies also showed liver cirrhosis. She was scheduled for MRI of the liver, that seems to be not done yet, and she is supposed to follow up with cardiology and hepatology, but is not keeping the appointments. She says she has oxygen tanks that last for 1-1/2 hours and she is not keeping the appointments for the risk of loss of oxygen and also being sick, and she says she is on 5 liters of oxygen and lately she is getting more short of breath, feeling weak and tired easily, not able to do anything. She has 2 kids and she is worried, that is why she came to the hospital today. In the ER, she had a white count of 13, hemoglobin of 7.7. INR of 1.4, potassium 3.2, creatinine 1.4, magnesium of 1. SARS-CoV-2 negative. Chest x-ray is showing interstitial opacities suggestive of pulmonary edema versus interstitial pneumonitis. Denies any chest pain. She has a chronic cough. Denies any fever, no cough. Has migraines. No blurred visions. No earache, no runny nose, no sore throat. Has nausea, but no vomiting. No diarrhea or constipation. Denies any blood in stools or black stools. Urine is dark. Currently, no swelling in the legs. Appetite is very poor. Hemodynamics are okay. ALLERGIES: MUSHROOM, ONION, TRAMADOL, KETOROLAC, TOBIN PEPPER. PAST MEDICAL HISTORY: As mentioned above. PAST SURGICAL HISTORY: induced by D and C, bronchoscopy, left and right heart catheterization, knee arthroscopy. MEDICATIONS: The patient is on albuterol 2 puffs inhalation every 4 hours p.r.n., buprenorphine/naloxone 8/2 mg 1 tab daily, fluoxetine 10 mg p.o. daily, folic acid 1 mg p.o. b.i.d., Lasix 80 mg p.o. b.i.d., metoprolol succinate 25 mg p.o. daily, potassium chloride 10 mEq daily. FAMILY HISTORY: Significant for father has hypertension, mother has lung disorder and lupus, sister has endometriosis, mother is on dialysis. SOCIAL HISTORY: , smokes 0.3 packs a day for 6 years. No alcohol use, no drug use. REVIEW OF SYSTEMS: As per HPI. Rest of the review of systems negative. PHYSICAL EXAMINATION: GENERAL: The patient is of moderate build, not in acute distress. VITAL SIGNS: Temperature 37.5, pulse 80, respiratory rate 16, blood pressure 101/49, oxygen 100% on 5 liters. HEENT: Pupils equal, round, reactive to light. Oral mucosa moist. NECK: No JVD, no neck masses. CARDIOVASCULAR: S1, S2 heard, regular rate and rhythm, no murmur, no gallop. RESPIRATORY SYSTEM: Normal AP diameter. No accessory muscle use. Mild bibasilar crackles. No wheezing. ABDOMEN: Soft, bowel sounds present, nontender. No distention. CENTRAL NERVOUS SYSTEM: Cranial nerves II-XII are grossly intact. Nonfocal. EXTREMITIES: No edema, no erythema. LABORATORY DATA: WBC 13.3, hemoglobin 7.7, hematocrit 23.5, platelets 226, PT 13.7, INR 1.4, APTT 29.5. Sodium 138, potassium 3.2, chloride 96, bicarbonate 33, BUN 11, creatinine 1.4, serum glucose 82, calcium 7.2, magnesium 1, total bilirubin 2.7, AST 81, ALT 19, alkaline phosphatase 158. Troponin I less than 0.015. Urinalysis, +3 blood, +1 bilirubin, trace leukocyte esterase. SARS-CoV-2 PCR negative. IMAGING DATA: Chest x-ray, interstitial opacities suggestive of pulmonary edema versus interstitial pneumonitis. EKG: Normal sinus rhythm at a rate of 92, no significant change was found. ASSESSMENT AND PLAN: This is a 81-year-old female who presents with ongoing shortness of breath and weakness. 1. Shortness of breath: The patient has a history of right-sided heart failure thought to be from profound anemia. Currently, on Lasix 80 mg p.o. b.i.d. CXR possible interstitial pneumonitis versus pulmonary edema. Received IV Lasix 40 mg, will continue iv lasix 40 b.i.d. Will follow echocardiogram, daily weights, I's and O's, and consult cardiology in the a.m. for further recommendations. 2. Probable interstitial lung disease: The patient is not following with any doctors. Will get pulmonary consult while she is in the hospital. 3. History of liver cirrhosis: The patient is supposed to get liver MRI, but not following with doctor. So will consult with GI while she is in the hospital. Follow LFTs. 4. Anemia: Thought to be from cold agglutinin disease. During the last admission, with the PRBC transfusion, she was getting hemolysis. Will consult hematology/oncology for further recommendations. She was treated with plasmapheresis and rituximab in the past. 5. Depression: Continue fluoxetine. 6. Hypertension: Continue Toprol-XL. 7. Chronic pain: Continue with Suboxone. 8. Deep venous thrombosis prophylaxis: Sequential compression devices. DISPOSITION: Closely monitor in the tele floor. Level 1 full code. Addendum: Morning labs Mallory. Will hold lasix and monitor Hb 6.7. repeat labs. stool hemeoccult. To d/w heme/oncology MTDD
[2021-04-05 06:02] LABS: Hemoglobin 6.7 g/dL (12.0-16.0); Mean Corpuscular Hemoglobin 34.2 pg (25-34); Mean Corpuscular Hgb Conc 33.5 g/dL (32-36); Mean Platelet Volume 9.7 fL (7.4-10.4); Platelet Count 148 K/uL (130-400); RDW Standard Deviation 58.5 fL (36.4-46.3); Red Blood Count 1.96 M/uL (4.2-5.4); White Blood Count 9.33 K/uL (4.8-10.8)
[2021-04-05 06:19] LABS: Basophils # (auto) 0.03 K/uL (0-0.2); Basophils % (auto) 0.3 %; Eosinophils # (auto) 0.14 K/uL (0-0.5); Eosinophils % (auto) 1.5 %; Immature Granulocytes # (auto) 0.02 K/uL (0.00-0.02); Immature Granulocytes % (auto) 0.2 %; Lymphocytes # (auto) 1.24 K/uL (1.2-3.4); Lymphocytes % (auto) 13.3 %; Monocytes % (auto) 6.4 %; Neutrophils % (auto) 78.3 %; Target Cells 1+
[2021-04-05 06:28] LABS: BUN Creatinine Ratio 9.4 (10-20); Calcium 6.5 mg/dl (8.5-10.1); Creatinine Clr Calc Pharmacy 47.1 ml/min; Est GFR (African American) 43.6 ml/min; Est GFR (Non-African American) 37.6 ml/min; Magnesium 2.1 mg/dl (1.8-2.4); Potassium 3.3 mmol/L (3.5-5.1)
[2021-04-05 06:33] LABS: Phosphorus 4.3 mg/dl (2.5-4.9)
[2021-04-05] MEDS ORDERED: POTASSIUM CHLORIDE CRTAB 20 MEQ TABCR PO STA ×2 (06:38→06:44)
[2021-04-05] MEDS ORDERED: POTASSIUM CHLORIDE 10 MEQ TABCR PO STA (07:21)
[2021-04-05 07:28] LABS: Hematocrit (blood only) 19.6 % (37-47); Hemoglobin 6.5 g/dL (12.0-16.0)
[2021-04-05] MEDS ORDERED: PNEUMOCOCCAL POLYSACCHARIDES 25 MCG/0.5 ML VIAL/SYR IM ONE (08:00)
[2021-04-05] MEDS: DOXYCYCLINE HYCLATE 100 MG in DEXTROSE 5% 100 ML IV SCH ×2 (08:09→17:38)
[2021-04-05] MEDS: cefTRIAXone SODIUM 2,000 MG in DEXTROSE 5% 50 ML IV SCH (08:09)
[2021-04-05] MEDS: POTASSIUM CHLORIDE 10 MEQ TABCR PO SCH (08:10)
[2021-04-05] MEDS: FOLIC ACID 1 MG TAB PO SCH ×2 (08:10→22:27)
[2021-04-05] MEDS: METOPROLOL SUCC 25MG EXT REL TAB PO SCH (08:11)
[2021-04-05] MEDS: NICOTINE 7 MG/24 HR TDSY TD SCH (08:11)
[2021-04-05] MEDS: BUPRENORPHINE/NALOXONE 8/2 MG TAB SL SCH (08:16)
[2021-04-05] MEDS ORDERED: FLUoxetine HCL 10 MG CAP PO SCH (09:00)
[2021-04-05] MEDS ORDERED: FUROSEMIDE 40 MG/4 ML VIAL IV SCH (09:00)
[2021-04-05] MEDS ORDERED: FUROSEMIDE 40 MG in SYRINGE 0 ML IV SCH (09:00)
--- NOTE | 2021-04-05 09:30 | Gastrointestinal Consultation ---
Date of Consultation April 05, 2021 Assessment & Plan (1) Diastolic heart failure: 41 year old medically complex female with chronic respiratory failure on home O2, hepatis fibrosis w/ elevated LFTs, right-sided heart failure admitted with SOB Cardiopulmonary work up pulmonary HTN on cath in 2019 Full liver serology Need ABD US Needs OP hepatology follow up with imaging and potential IR transjugular liver biopsy with portal pressure/right heart pressure Low sodium No ETOH OP EGD for nausea, GERD PO PPI 20 mg twice daily GERD dietary and lifestyle changes Thank you for allowing us to participate in the care of this patient. Please call with any acute changes, questions or concerns. Please see addendum below with additional recommendation from my supervising physician. (2) Acute and chronic respiratory failure with hypoxia: (3) Macrocytic anemia: (4) Elevated liver enzymes: Supervising Physician Co-Signing Physician Notes I saw and evaluated the patient. We were consulted for evaluation of elevated liver enzymes and possible cirrhosis. It appears that the patient has had several clinic appointments with our office in the past however she has failed to show to any of these. Of note the patient is HCV positive but negative RNA suggesting that she may have cleared the infection or perhaps has a false positive result. The patient denies a history of IV drug abuse or alcohol abuse. She has numerous coexisting medical problems to include pulmonary hypertension, cardiac disease and obstructive sleep apnea. Physical examination Somewhat disheveled appearing, very poor dentition Abdomen soft, nontender no rebound or peritoneal signs Impression: Patient with nodularity noted on prior imaging studies suggestive of underlying liver disease. Given the patient's history I wonder about congestive hepatopathy as a possible etiology to her symptoms. Perhaps the best approach for her would be to have a outpatient transjugular liver biopsy to assess for this. Recommendations Outpatient transjugular liver biopsy to be scheduled Please call with any questions or concerns History of Present Illness Reason for Consultation: ?cirrhosis Requesting Physician: Evelyn Attending Physician: Alexei Rivas MD History of Present Illness 41 year old medically complex female with history of anxiety, depression, HCV AB + w/ negative RNA who denies IN/IV drug use, hemolytic anemia, SHIRA, hypothyroidism, PCOS, PTSD, medicinal marijuana use, chronic respiratory failure on home O2 5L, right sided heart failure and concern for hepatitis fibrosis admitted w/ worsening SOB and edema, GI asked to evaluate for liver disease. Pt was seen and evaluated, chart reviewed. She is quite anxious, overwhelmed and tearful on examination. She denies any family history of liver disease. She denies any ETOH abuse, suggests she drinks 2-5 drinks less than 4 times yearly and denies any IV/IN drug use. She notes from a GI standpoint she feels okay. No abd pain but does report nausea. No vomiting. Some GERD type symptoms but no dysphagia. Reports decreased appetite. No diarrhea/constipation. No fever, chills, CP, SOB. She is afebrile w/ stable vital signs No leukocytosis, HGB 6.5 w/o BUN elevation PLT WNL. INR 1.4 Rising PATIENT SUPPORT ASSISTANT 1.4 TB 2.7, AST 81, ALT 19, ALKP 158 BNP 929 HIDA 2020: No evidence for acute cholecystitis. Hepatomegaly.. Mildly delayed excretion of radiotracer into the common bile duct which could be due to hepatic dysfunction. CTAP 2020: Marked hepatomegaly and severe fatty infiltration of the liver. Moderate splenomegaly. No bowel obstruction. Mild colonic wall thickening is likely due to underdistention. A mild nonspecific colitis could appear similar but is considered less likely.Extensive airspace opacities within the lungs which are better depicted on chest CT. These favor an infectious process. Allergies Allergy/AdvReac Type Severity Reaction Status Date / Time green pepper Allergy Severe Anaphylaxis Verified 04/04/21 23:16 mushroom Allergy Severe ANAPHYLAXIS Verified 04/04/21 15:58 onion Allergy Severe ANAPHYLAXIS Verified 04/04/21 15:58 tramadol Allergy Mild RASH AND Verified 04/04/21 15:58 ITCHING ketorolac Allergy Unknown RASH Verified 04/04/21 15:58 Home Medications Medication Instructions Recorded Confirmed Type albuterol sulfate 2 puff INHALATION Q4 PRN 04/24/20 04/04/21 History buprenorphine-naloxone 1 tab SUBLINGUAL DAILY 04/24/20 04/04/21 History folic acid 1 mg PO BID 07/30/20 04/04/21 History metoprolol succinate 25 mg PO DAILY 07/30/20 04/04/21 History fluoxetine 10 mg PO DAILY 04/04/21 04/04/21 History furosemide 80 mg PO BID 04/04/21 04/04/21 History potassium chloride 10 meq PO DAILY 04/04/21 04/04/21 History Patient History Medical History (Updated 04/05/21 @ 11:09 by Moy Mcdonough MD) Heart failure with preserved ejection fraction Hepatomegaly Pleural effusion on left Pleural effusion on right Proteinuria Pulmonary edema Transaminitis Tricuspid regurgitation Family History Mother Lupus (systemic lupus erythematosus) Social History Smoking Status: Current every day smoker Tobacco Type: Cigarettes Cigarettes Per Day: 10; Do You Dip or Chew Tobacco: No; Tobacco Cessation Education Requested by Patient: No Hx Alcohol Use: Yes Alcohol type: other Hx Substance Use: Yes Last Used Substance Other:: 04/03/2021 medical marijuana Substance Use Type Other:: former pain killers. Is on Saboxen and medical marijuana Preferred Language: Kyrgyz Communication Ability: Effective Imposer Required: No Beliefs That Will Affect Care: None Current Living Situation: Family Current Living Situation Comment: fiancee and 2 kids Other Information That Helps Us Care for You: No Feels Safe at Home: Yes Safety Concerns: Feels Safe At This Time Assistive Devices: Oxygen - Continuous Review of Systems Constitutional: + fatigue, + weakness and + anorexia; no fever and no chills Respiratory: + dyspnea and + dyspnea on exertion; no chest congestion Cardiovascular: + dyspnea, + dyspnea at rest and + dyspnea on exertion; no chest pain and no chest pain at rest Gastrointestinal: + bloating, + heartburn and + nausea; no abdominal pain, no belching, no hematemesis, no dysphagia, no constipation, no blood in stools and no melena Physical Exam Constitutional: + ill appearing and comfortable; no acute distress Neck: trachea midline, no thyromegaly Respiratory: normal respiratory effort; no respiratory distress and no labored breathing Auscultation: + diminished lung sounds Cardiovascular: RRR, no murmur, no edema Gastrointestinal (Abdomen): normal bowel sounds, soft, nontender, no hepatosplenomegaly Results & Data ([facility]) Vital Signs (Past 12 Hours) Vital Signs Temp Pulse Pulse Resp BP BP Pulse Ox 04/05/21 07:48 36.9 C 88 19 105/67 100 04/05/21 07:42 80 04/05/21 03:25 36.9 C 84 18 97/64 L 100 04/04/21 23:18 82 04/04/21 23:00 36.8 C 84 16 132/83 100 Laboratory Results 04/05/21 04/05/21 04/05/21 Range/Units 06:50 05:32 05:32 WBC 9.33 (4.8-10.8) K/uL RBC 1.96 L (4.2-5.4) M/uL Hgb 6.5 L* 6.7 L* (12.0-16.0) g/dL Hct 19.6 L* 20.0 L* (37-47) % MCV 102.0 H (80-100) fL MCH 34.2 H (25-34) pg MCHC 33.5 (32-36) g/dL RDW Std Deviation 58.5 H (36.4-46.3) fL RDW Coeff of Christine 16.0 H (11.5-14.5) % Plt Count 148 (130-400) K/uL MPV 9.7 (7.4-10.4) fL Immature Gran % (Auto) 0.2 % Neut % (Auto) 78.3 % Lymph % (Auto) 13.3 % Charlton % (Auto) 6.4 % Eos % (Auto) 1.5 % Baso % (Auto) 0.3 % Neut # (Auto) 7.30 H (1.4-6.5) K/uL Lymph # (Auto) 1.24 (1.2-3.4) K/uL Charlton # (Auto) 0.60 H (0.11-0.59) K/uL Eos # (Auto) 0.14 (0-0.5) K/uL Baso # (Auto) 0.03 (0-0.2) K/uL Immature Gran # (Auto) 0.02 (0.00-0.02) K/uL Target Cells 1+ PT (9.0-12.0) Seconds INR (0.9-1.1) APTT (21.0-31.0) Seconds PTT Ratio Sodium 135 L (136-145) mmol/L Potassium 3.3 L (3.5-5.1) mmol/L Chloride 97 L (98-107) mmol/L Carbon Dioxide 34 H (21-32) mmol/L Anion Gap 4.0 (3-11) BUN 16 (7-18) mg/dl Creatinine 1.69 H (0.6-1.2) mg/dl Est Cr Clr Drug Dosing 47.1 ml/min Est GFR ( Amer) 43.6 ml/min Est GFR (Non-Af Amer) 37.6 ml/min BUN/Creatinine Ratio 9.4 L (10-20) Glucose 87 (70-99) mg/dl Calcium 6.5 L (8.5-10.1) mg/dl Phosphorus 4.3 (2.5-4.9) mg/dl Magnesium 2.1 (1.8-2.4) mg/dl Total Bilirubin (0.2-1) mg/dl AST (15-37) U/L ALT (12-78) U/L Alkaline Phosphatase (45-117) U/L Troponin I (0-0.045) ng/ml NT-Pro-B Natriuret Pep 929 H (0-450) pg/ml Total Protein (6.4-8.2) gm/dl Albumin (3.4-5.0) gm/dl Globulin (2.5-4.0) gm/dl Albumin/Globulin Ratio (0.9-2) Urine Color Urine Appearance (Clear) Urine pH (4.5-7.5) Ur Specific [place] (1.000-1.030) Urine Protein (Negative) Urine Glucose (UA) (Negative) Urine Ketones (Negative) Urine Blood (Negative) Urine Nitrite (Negative) Urine Bilirubin (Negative) Urine Urobilinogen (Negative) Ur Leukocyte Esterase (Negative) Urine WBC (Auto) (0-5) /hpf Urine RBC (Auto) (0-4) /hpf U Hyaline Cast (Auto) (0-5) /lpf U Epithel Cells (Auto) (0-5) /lpf Urine Bacteria (Auto) (Negative) COVID-19 Eval Order SARS-CoV-2 (PCR) (Negative) Blood Type Antibody Screen 04/04/21 04/04/21 04/04/21 Range/Units 19:50 16:20 15:15 WBC (4.8-10.8) K/uL RBC (4.2-5.4) M/uL Hgb (12.0-16.0) g/dL Hct (37-47) % MCV (80-100) fL MCH (25-34) pg MCHC (32-36) g/dL RDW Std Deviation (36.4-46.3) fL RDW Coeff of Christine (11.5-14.5) % Plt Count (130-400) K/uL MPV (7.4-10.4) fL Immature Gran % (Auto) % Neut % (Auto) % Lymph % (Auto) % Charlton % (Auto) % Eos % (Auto) % Baso % (Auto) % Neut # (Auto) (1.4-6.5) K/uL Lymph # (Auto) (1.2-3.4) K/uL Charlton # (Auto) (0.11-0.59) K/uL Eos # (Auto) (0-0.5) K/uL Baso # (Auto) (0-0.2) K/uL Immature Gran # (Auto) (0.00-0.02) K/uL Target Cells PT (9.0-12.0) Seconds INR (0.9-1.1) APTT (21.0-31.0) Seconds PTT Ratio Sodium (136-145) mmol/L Potassium (3.5-5.1) mmol/L Chloride (98-107) mmol/L Carbon Dioxide (21-32) mmol/L Anion Gap (3-11) BUN (7-18) mg/dl Creatinine (0.6-1.2) mg/dl Est Cr Clr Drug Dosing ml/min Est GFR ( Amer) ml/min Est GFR (Non-Af Amer) ml/min BUN/Creatinine Ratio (10-20) Glucose (70-99) mg/dl Calcium (8.5-10.1) mg/dl Phosphorus (2.5-4.9) mg/dl Magnesium (1.8-2.4) mg/dl Total Bilirubin (0.2-1) mg/dl AST (15-37) U/L ALT (12-78) U/L Alkaline Phosphatase (45-117) U/L Troponin I (0-0.045) ng/ml NT-Pro-B Natriuret Pep (0-450) pg/ml Total Protein (6.4-8.2) gm/dl Albumin (3.4-5.0) gm/dl Globulin (2.5-4.0) gm/dl Albumin/Globulin Ratio (0.9-2) Urine Color Tucker Urine Appearance Cloudy A (Clear) Urine pH 6.0 (4.5-7.5) Ur Specific [place] 1.013 (1.000-1.030) Urine Protein 3+ H (Negative) Urine Glucose (UA) Negative (Negative) Urine Ketones Negative (Negative) Urine Blood 3+ H (Negative) Urine Nitrite Negative (Negative) Urine Bilirubin 1+ H (Negative) Urine Urobilinogen Negative (Negative) Ur Leukocyte Esterase Trace H (Negative) Urine WBC (Auto) 10-30 H (0-5) /hpf Urine RBC (Auto) >30 H (0-4) /hpf U Hyaline Cast (Auto) 1-5 (0-5) /lpf U Epithel Cells (Auto) >30 H (0-5) /lpf Urine Bacteria (Auto) Negative (Negative) COVID-19 Eval Order SARS-CoV-2 (PCR) NEGATIVE (Negative) Blood Type A Positive Antibody Screen NEGATIVE 04/04/21 04/04/21 04/04/21 Range/Units 15:15 14:37 14:37 WBC (4.8-10.8) K/uL RBC (4.2-5.4) M/uL Hgb (12.0-16.0) g/dL Hct (37-47) % MCV (80-100) fL MCH (25-34) pg MCHC (32-36) g/dL RDW Std Deviation (36.4-46.3) fL RDW Coeff of Christine (11.5-14.5) % Plt Count (130-400) K/uL MPV (7.4-10.4) fL Immature Gran % (Auto) % Neut % (Auto) % Lymph % (Auto) % Charlton % (Auto) % Eos % (Auto) % Baso % (Auto) % Neut # (Auto) (1.4-6.5) K/uL Lymph # (Auto) (1.2-3.4) K/uL Charlton # (Auto) (0.11-0.59) K/uL Eos # (Auto) (0-0.5) K/uL Baso # (Auto) (0-0.2) K/uL Immature Gran # (Auto) (0.00-0.02) K/uL Target Cells PT 13.7 H (9.0-12.0) Seconds INR 1.4 H (0.9-1.1) APTT 29.5 (21.0-31.0) Seconds PTT Ratio 1.1 Sodium 138 (136-145) mmol/L Potassium 3.2 L (3.5-5.1) mmol/L Chloride 96 L (98-107) mmol/L Carbon Dioxide 33 H (21-32) mmol/L Anion Gap 8.0 (3-11) BUN 11 (7-18) mg/dl Creatinine 1.48 H (0.6-1.2) mg/dl Est Cr Clr Drug Dosing 53.3 ml/min Est GFR ( Amer) 51.2 ml/min Est GFR (Non-Af Amer) 44.1 ml/min BUN/Creatinine Ratio 7.4 L (10-20) Glucose 82 (70-99) mg/dl Calcium 7.2 L (8.5-10.1) mg/dl Phosphorus (2.5-4.9) mg/dl Magnesium 1.0 L (1.8-2.4) mg/dl Total Bilirubin 2.7 H (0.2-1) mg/dl AST 81 H (15-37) U/L ALT 19 (12-78) U/L Alkaline Phosphatase 158 H (45-117) U/L Troponin I < 0.015 (0-0.045) ng/ml NT-Pro-B Natriuret Pep (0-450) pg/ml Total Protein 8.3 H (6.4-8.2) gm/dl Albumin 2.5 L (3.4-5.0) gm/dl Globulin 5.8 H (2.5-4.0) gm/dl Albumin/Globulin Ratio 0.4 L (0.9-2) Urine Color Urine Appearance (Clear) Urine pH (4.5-7.5) Ur Specific [place] (1.000-1.030) Urine Protein (Negative) Urine Glucose (UA) (Negative) Urine Ketones (Negative) Urine Blood (Negative) Urine Nitrite (Negative) Urine Bilirubin (Negative) Urine Urobilinogen (Negative) Ur Leukocyte Esterase (Negative) Urine WBC (Auto) (0-5) /hpf Urine RBC (Auto) (0-4) /hpf U Hyaline Cast (Auto) (0-5) /lpf U Epithel Cells (Auto) (0-5) /lpf Urine Bacteria (Auto) (Negative) COVID-19 Eval Order Covid19 at [facility] SARS-CoV-2 (PCR) (Negative) Blood Type Antibody Screen 04/04/21 Range/Units 14:37 WBC 13.30 H (4.8-10.8) K/uL RBC 2.28 L (4.2-5.4) M/uL Hgb 7.7 L (12.0-16.0) g/dL Hct 23.5 L (37-47) % MCV 103.1 H (80-100) fL MCH 33.8 (25-34) pg MCHC 32.8 (32-36) g/dL RDW Std Deviation 60.1 H (36.4-46.3) fL RDW Coeff of Christine 16.1 H (11.5-14.5) % Plt Count 226 (130-400) K/uL MPV 10.3 (7.4-10.4) fL Immature Gran % (Auto) 0.2 % Neut % (Auto) 79.9 % Lymph % (Auto) 11.4 % Charlton % (Auto) 6.8 % Eos % (Auto) 1.3 % Baso % (Auto) 0.4 % Neut # (Auto) 10.64 H (1.4-6.5) K/uL Lymph # (Auto) 1.51 (1.2-3.4) K/uL Charlton # (Auto) 0.90 H (0.11-0.59) K/uL Eos # (Auto) 0.17 (0-0.5) K/uL Baso # (Auto) 0.05 (0-0.2) K/uL Immature Gran # (Auto) 0.03 H (0.00-0.02) K/uL Target Cells 1+ PT (9.0-12.0) Seconds INR (0.9-1.1) APTT (21.0-31.0) Seconds PTT Ratio Sodium (136-145) mmol/L Potassium (3.5-5.1) mmol/L Chloride (98-107) mmol/L Carbon Dioxide (21-32) mmol/L Anion Gap (3-11) BUN (7-18) mg/dl Creatinine (0.6-1.2) mg/dl Est Cr Clr Drug Dosing ml/min Est GFR ( Amer) ml/min Est GFR (Non-Af Amer) ml/min BUN/Creatinine Ratio (10-20) Glucose (70-99) mg/dl Calcium (8.5-10.1) mg/dl Phosphorus (2.5-4.9) mg/dl Magnesium (1.8-2.4) mg/dl Total Bilirubin (0.2-1) mg/dl AST (15-37) U/L ALT (12-78) U/L Alkaline Phosphatase (45-117) U/L Troponin I (0-0.045) ng/ml NT-Pro-B Natriuret Pep (0-450) pg/ml Total Protein (6.4-8.2) gm/dl Albumin (3.4-5.0) gm/dl Globulin (2.5-4.0) gm/dl Albumin/Globulin Ratio (0.9-2) Urine Color Urine Appearance (Clear) Urine pH (4.5-7.5) Ur Specific [place] (1.000-1.030) Urine Protein (Negative) Urine Glucose (UA) (Negative) Urine Ketones (Negative) Urine Blood (Negative) Urine Nitrite (Negative) Urine Bilirubin (Negative) Urine Urobilinogen (Negative) Ur Leukocyte Esterase (Negative) Urine WBC (Auto) (0-5) /hpf Urine RBC (Auto) (0-4) /hpf U Hyaline Cast (Auto) (0-5) /lpf U Epithel Cells (Auto) (0-5) /lpf Urine Bacteria (Auto) (Negative) COVID-19 Eval Order SARS-CoV-2 (PCR) (Negative) Blood Type Antibody Screen
--- NOTE | 2021-04-05 11:09 | Pulmonary Consultation ---
Date of Consultation April 05, 2021 Assessment & Plan (1) Acute and chronic respiratory failure with hypoxia: 41-year-old female with a past medical history of tobacco abuse, diastolic CHF, cold agglutinins, obesity and severe anxiety presenting to the hospital due to lethargy and shortness of breath. Shortness of breath: I suspect this is multifactorial related to her underlying severe anemia, acute on chronic diastolic heart failure and possibly a component of interstitial lung disease. Unfortunately, she was previously intolerant of bronchoscopy due to severe anxiety. At this time, I think that diastolic heart failure is playing a bigger role in her symptoms along with her anxiety. It seems that she has improved from a respiratory standpoint after diuresis. Notably, I turned her oxygen down to 2 L via nasal cannula and she was able to maintain saturations in the mid to high 90s. I am not certain why she is on 5 L of oxygen. I would recommend titrating oxygen to maintain saturations of around 92%. Possible interstitial lung disease: She would benefit from pulmonary function testing as an outpatient and follow-up imaging once she is more euvolemic. 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 Prior work-up for mixed connective tissue disorder in April 2020 was negative. Cold agglutinins related anemia: She was previously on Rituxan therapy. Will defer to hematology/oncology for further management. She is very anemic at present and this may be contributing to high-output cardiac failure. Tricuspid regurgitation: She does have a history of moderate tricuspid regurgitation seen on echo in July 2020. Pulmonary artery systolic pressures were elevated at that time to 39 mmHg. Right heart catheterization in August 2020 in [facility] did not demonstrate evidence of pulmonary hypertension. She did have elevated wedge pressures at that time consistent with elevated left-sided pressures. Thank you for the consultation. Pulmonary continue to follow along with you. (2) Diastolic heart failure: (3) Macrocytic anemia: (4) Cold agglutinin disease: (5) Tricuspid regurgitation: History of Present Illness Reason for Consultation: Question of interstitial lung disease Attending Physician: Alexei Rivas MD History of Present Illness 41-year-old female with a past medical history of cold agglutinins, hep C carrier, diastolic heart failure, tobacco abuse and severe anxiety presenting to the hospital due to increasing lethargy and shortness of breath. Patient notes that over the past week she has been feeling more short of breath with orthopnea at night. Over the last 24 hours the symptoms have progressed significantly. She normally uses 5 L of oxygen via nasal cannula at home and notes that it is often difficult for her to get to her doctor's appointment without her oxygen running out. She notes that her oxygen levels were dropped to 90% with exertion. She denies any significant cough. She was having significant leg swelling and abdominal swelling prior to her hospitalization. She still feels very bloated. She denies any recent fevers or chills. Notably, she underwent a bronchoscopy by me in July 2020. She was intolerant of the procedure and ultimately we had to abort the procedure given her severe anxiety. She was sent to the ICU and ended up being intubated due to severe respiratory distress. She was transferred to [facility] and underwent a right heart cath to evaluate for pulmonary hypertension. Right heart cath results in August 2020 demonstrated a mean PA pressure 23 mmHg. Pulmonary wedge pressure 16 mmHg. She has been seen by Dr. Layton of [facility] pulmonology as an outpatient on January 20, 2021. At that time it was felt that pulmonary hypertension had been ruled out. It was thought that her chronic hypoxemic respiratory failure was most likely secondary to underlying heart failure with preserved ejection fraction. Notably she has an extensive smoking history since the age of 18. She smoked 1 pack/day, but over the past 1 to 2 months she has been smoking 3 cigarettes a day. She is feeling very anxious today. Allergies Allergy/AdvReac Type Severity Reaction Status Date / Time green pepper Allergy Severe Anaphylaxis Verified 04/04/21 23:16 mushroom Allergy Severe ANAPHYLAXIS Verified 04/04/21 15:58 onion Allergy Severe ANAPHYLAXIS Verified 04/04/21 15:58 tramadol Allergy Mild RASH AND Verified 04/04/21 15:58 ITCHING ketorolac Allergy Unknown RASH Verified 04/04/21 15:58 Home Medications Medication Instructions Recorded Confirmed Type albuterol sulfate 2 puff INHALATION Q4 PRN 04/24/20 04/04/21 History buprenorphine-naloxone 1 tab SUBLINGUAL DAILY 04/24/20 04/04/21 History folic acid 1 mg PO BID 07/30/20 04/04/21 History metoprolol succinate 25 mg PO DAILY 07/30/20 04/04/21 History fluoxetine 10 mg PO DAILY 04/04/21 04/04/21 History furosemide 80 mg PO BID 04/04/21 04/04/21 History potassium chloride 10 meq PO DAILY 04/04/21 04/04/21 History Patient History Medical History (Updated 04/05/21 @ 11:09 by Moy Mcdonough MD) Heart failure with preserved ejection fraction Hepatomegaly Pleural effusion on left Pleural effusion on right Proteinuria Pulmonary edema Transaminitis Tricuspid regurgitation Family History Mother Lupus (systemic lupus erythematosus) Social History Smoking Status: Current every day smoker Tobacco Type: Cigarettes Cigarettes Per Day: 10; Do You Dip or Chew Tobacco: No; Tobacco Cessation Education Requested by Patient: No Hx Alcohol Use: Yes Alcohol type: other Hx Substance Use: Yes Last Used Substance Other:: 04/03/2021 medical marijuana Substance Use Type Other:: former pain killers. 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 Cardiovascular: RRR, no murmur, no edema Musculoskeletal: no cyanosis or clubbing, extremities motor strength 5/5 Skin: no rashes, warm and dry Neurologic: PERRL, EOMI, accommodation nl, no face palsy, no dysarthria Psychiatric: Orientation: alert and oriented x 3 Speech: + pressured speech Affect: + anxious affect and + tearful affect Results & Data Results & Data ([facility]) Vital Signs (Past 12 Hours) Vital Signs Temp Pulse Pulse Resp BP BP Pulse Ox 04/05/21 10:49 96 04/05/21 07:48 98.4 F 88 19 105/67 100 04/05/21 07:42 80 04/05/21 03:25 98.4 F 84 18 97/64 L 100 04/04/21 23:18 82 04/04/21 23:00 98.2 F 84 16 132/83 100 Vital signs, labs and imaging reviewed. Chest x-ray from 04/04/2021 reviewed and demonstrates bilateral hazy opacities. CT chest from 07/30/2020 with areas of interlobular septal thickening groundglass opacities concerning for pulmonary edema. PG Care Time/CCT Total # of Minutes Spent Total Time Spent with Patient: Total time spent is greater than 50% in coordination of care (as documented) at patient's floor/unit and/or counseling patient: Coding Level of Care Code 28211 Inpt Consult Level 5 Diagnoses Acute and chronic respiratory failure with hypoxia J96.21 Diastolic heart failure I50.30 Macrocytic anemia D53.9 Cold agglutinin disease D59.1 Tricuspid regurgitation I07.1
[2021-04-05] MEDS ORDERED: hydrOXYzine HCl 10 MG TAB PO PRN (12:15)
[2021-04-05 13:42] LABS: Reticulocyte % 2.5 % (0.5-2.0); Reticulocytes # 0.05 10^6/uL (0.02-0.10)
[2021-04-05] MEDS ORDERED: LORazepam 1 MG TAB PO STA (13:42)
[2021-04-05] MEDS ORDERED: LORazepam 1 MG TAB ONE (13:44)
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
--- NOTE | 2021-04-05 14:36 | Cardiology Consultation ---
Date of Consultation April 05, 2021 Assessment & Plan (1) Diastolic heart failure: (2) Acute and chronic respiratory failure with hypoxia: (3) Macrocytic anemia: (4) Cold agglutinin disease: (5) Cirrhosis: As mentioned, all consultants reports are appreciated. At this point I would continue with the IV Lasix. I also believe she would benefit from blood transfusions as soon as hematology or the lab can provide us with proper guidance. Her current hemoglobin level was 6.5 with all her underlying medical problems this is contributing to her acute respiratory failure and should be corrected. History of Present Illness Attending Physician: Alexei Rivas MD History of Present Illness This is a 41-year-old female with complex medical problems including cirrhosis from hepatitis C, interstitial lung disease, chronic diastolic heart failure, cold agglutinin hemolytic anemia who has chronic hypoxia and respiratory difficulty. In the past she has been admitted with profound anemia resulting in acute diastolic heart failure and volume overload. Recently she has had progressive shortness of breath and has been now readmitted to the hospital. Her progressive shortness of breath is multifactorial including her anemia, chronic interstitial lung disease and diastolic heart failure along with some anxiety. According to our outpatient records she has also been somewhat noncompliant with medical follow-up and treatment. All consultants notes are appreciated. She currently is resting comfortably with supplemental oxygen. Past medical history: Depression Chronic respiratory failure with hypoxia (HCC) Cold agglutinin disease (HCC) Other cirrhosis of liver (HCC) Hepatitis C virus carrier state (HCC) Chronic right-sided heart failure (HCC) Polycystic ovaries HYPOTHYROIDISM NOS INFERTILITY-ANOVULATION Metrorrhagia Tobacco use disorder Anemia PTSD (post-traumatic stress disorder) Transaminitis Proteinuria Anxiety Obstructive sleep apnea Medical marijuana use Allergies Allergy/AdvReac Type Severity Reaction Status Date / Time green pepper Allergy Severe Anaphylaxis Verified 04/04/21 23:16 mushroom Allergy Severe ANAPHYLAXIS Verified 04/04/21 15:58 onion Allergy Severe ANAPHYLAXIS Verified 04/04/21 15:58 tramadol Allergy Mild RASH AND Verified 04/04/21 15:58 ITCHING ketorolac Allergy Unknown RASH Verified 04/04/21 15:58 Home Medications Medication Instructions Recorded Confirmed Type albuterol sulfate 2 puff INHALATION Q4 PRN 04/24/20 04/04/21 History buprenorphine-naloxone 1 tab SUBLINGUAL DAILY 04/24/20 04/04/21 History folic acid 1 mg PO BID 07/30/20 04/04/21 History metoprolol succinate 25 mg PO DAILY 07/30/20 04/04/21 History fluoxetine 10 mg PO DAILY 04/04/21 04/04/21 History furosemide 80 mg PO BID 04/04/21 04/04/21 History potassium chloride 10 meq PO DAILY 04/04/21 04/04/21 History Patient History Medical History Heart failure with preserved ejection fraction Hepatomegaly Pleural effusion on left Pleural effusion on right Proteinuria Pulmonary edema Transaminitis Tricuspid regurgitation Family History Mother Lupus (systemic lupus erythematosus) Social History Smoking Status: Current every day smoker Tobacco Type: Cigarettes Cigarettes Per Day: 10; Do You Dip or Chew Tobacco: No; Tobacco Cessation Education Requested by Patient: No Hx Alcohol Use: Yes Alcohol type: other Hx Substance Use: Yes Last Used Substance Other:: 04/03/2021 medical marijuana Substance Use Type Other:: former pain killers. Is on Saboxen and medical marijuana Preferred Language: [place] Communication Ability: Effective Mail Processing Clerk Required: No Beliefs That Will Affect Care: None Current Living Situation: Family Current Living Situation Comment: cornelioe and 2 kids Other Information That Helps Us Care for You: No Feels Safe at Home: Yes Safety Concerns: Feels Safe At This Time Assistive Devices: Oxygen - Continuous Review of Systems Review of Systems: All systems reviewed & are unremarkable except as noted in HPI & below Nothing additional to add. Physical Exam Physical Exam: General: no acute distress and stated age Head: normocephalic, no masses, lesions, tenderness or abnormalities Eyes: conjunctiva are pink and non-injected, sclera clear Neck: supple, no adenopathy, no bruits, normal jugular venous pulse, no hepatojugular reflux Chest: normal shape and normal respiratory effort Lungs: clear to auscultation and percussion Cardiac Exam: - regular rate & rhythm, no murmurs gallops or rubs - normal S1, normal S2 Pulses: 2(+) throughout Abdomen: abdomen soft, non-tender, no abnormal masses and no hepatosplenomegaly Musculoskeletal: no gait disturbance, no joint inflammation, no deforming arthritis Extremities: no edema and no cyanosis Neuro: grossly normal exam Results & Data ([facility]) Vital Signs (Past 12 Hours) Vital Signs Temp Pulse Pulse Resp BP BP Pulse Ox 04/05/21 11:28 36.8 C 82 19 91/57 L 98 04/05/21 10:49 96 04/05/21 07:48 36.9 C 88 19 105/67 100 04/05/21 07:42 80 04/05/21 03:25 36.9 C 84 18 97/64 L 100 Laboratory Results Laboratory Results - last 24 hr 04/04/21 04/04/21 04/04/21 15:15 16:20 19:50 WBC RBC Hgb Hct MCV MCH MCHC RDW Std Deviation RDW Coeff of Christine Plt Count MPV Immature Gran % (Auto) Neut % (Auto) Lymph % (Auto) [place] % (Auto) Eos % (Auto) Baso % (Auto) Reticulocyte % (Auto) Neut # (Auto) Lymph # (Auto) [place] # (Auto) Eos # (Auto) Baso # (Auto) Reticulocyte # Immature Gran # (Auto) Target Cells Peripher Smr Path Cons Haptoglobin Sodium Potassium Chloride Carbon Dioxide Anion Gap BUN Creatinine Est Cr Clr Drug Dosing Est GFR ( Amer) Est GFR (Non-Af Amer) BUN/Creatinine Ratio Glucose Calcium Phosphorus Magnesium Lactate Dehydrogenase NT-Pro-B Natriuret Pep Urine Color Edwards Urine Appearance Cloudy A Urine pH 6.0 Ur Specific Earling 1.013 Urine Protein 3+ H Urine Glucose (UA) Negative Urine Ketones Negative Urine Blood 3+ H Urine Nitrite Negative Urine Bilirubin 1+ H Urine Urobilinogen Negative Ur Leukocyte Esterase Trace H Urine WBC (Auto) 10-30 H Urine RBC (Auto) >30 H U Hyaline Cast (Auto) 1-5 U Epithel Cells (Auto) >30 H Urine Bacteria (Auto) Negative SARS-CoV-2 (PCR) NEGATIVE Blood Type A Positive Antibody Screen NEGATIVE Crossmatch See Detail 04/05/21 04/05/21 04/05/21 05:32 05:32 06:50 WBC 9.33 RBC 1.96 L Hgb 6.7 L* 6.5 L* Hct 20.0 L* 19.6 L* MCV 102.0 H MCH 34.2 H MCHC 33.5 RDW Std Deviation 58.5 H RDW Coeff of Christine 16.0 H Plt Count 148 MPV 9.7 Immature Gran % (Auto) 0.2 Neut % (Auto) 78.3 Lymph % (Auto) 13.3 [place] % (Auto) 6.4 Eos % (Auto) 1.5 Baso % (Auto) 0.3 Reticulocyte % (Auto) Neut # (Auto) 7.30 H Lymph # (Auto) 1.24 [place] # (Auto) 0.60 H Eos # (Auto) 0.14 Baso # (Auto) 0.03 Reticulocyte # Immature Gran # (Auto) 0.02 Target Cells 1+ Peripher Smr Path Cons Haptoglobin Sodium 135 L Potassium 3.3 L Chloride 97 L Carbon Dioxide 34 H Anion Gap 4.0 BUN 16 Creatinine 1.69 H Est Cr Clr Drug Dosing 47.1 Est GFR ( Amer) 43.6 Est GFR (Non-Af Amer) 37.6 BUN/Creatinine Ratio 9.4 L Glucose 87 Calcium 6.5 L Phosphorus 4.3 Magnesium 2.1 Lactate Dehydrogenase NT-Pro-B Natriuret Pep 929 H Urine Color Urine Appearance Urine pH Ur Specific Earling Urine Protein Urine Glucose (UA) Urine Ketones Urine Blood Urine Nitrite Urine Bilirubin Urine Urobilinogen Ur Leukocyte Esterase Urine WBC (Auto) Urine RBC (Auto) U Hyaline Cast (Auto) U Epithel Cells (Auto) Urine Bacteria (Auto) SARS-CoV-2 (PCR) Blood Type Antibody Screen Crossmatch 04/05/21 04/05/21 04/05/21 12:57 12:57 12:57 WBC RBC Hgb Hct MCV MCH MCHC RDW Std Deviation RDW Coeff of Christine Plt Count MPV Immature Gran % (Auto) Neut % (Auto) Lymph % (Auto) [place] % (Auto) Eos % (Auto) Baso % (Auto) Reticulocyte % (Auto) 2.5 H Neut # (Auto) Lymph # (Auto) [place] # (Auto) Eos # (Auto) Baso # (Auto) Reticulocyte # 0.05 Immature Gran # (Auto) Target Cells Peripher Smr Path Cons Haptoglobin Pending Sodium Potassium Chloride Carbon Dioxide Anion Gap BUN Creatinine Est Cr Clr Drug Dosing Est GFR ( Amer) Est GFR (Non-Af Amer) BUN/Creatinine Ratio Glucose Calcium Phosphorus Magnesium Lactate Dehydrogenase 268 H NT-Pro-B Natriuret Pep Urine Color Urine Appearance Urine pH Ur Specific Earling Urine Protein Urine Glucose (UA) Urine Ketones Urine Blood Urine Nitrite Urine Bilirubin Urine Urobilinogen Ur Leukocyte Esterase Urine WBC (Auto) Urine RBC (Auto) U Hyaline Cast (Auto) U Epithel Cells (Auto) Urine Bacteria (Auto) SARS-CoV-2 (PCR) Blood Type Antibody Screen Crossmatch Medications Administered Current Inpatient Medications Acetaminophen (Acetaminophen 325 Mg Tab) 650 mg PO Q4H PRN PRN Reason: Pain or Fever Stop: 05/04/21 23:00 Albuterol (Albuterol Hfa 8 Gm Inhaler) 2 puffs INH Q4H PRN PRN Reason: Shortness Of Breath Or Wheezing Stop: 05/04/21 23:00 Buprenorphine/Naloxone (Buprenorphine/Naloxone 8/2 Mg Tab) 1 tab SL Q24H ALLY Stop: 05/05/21 08:59 Last Admin: 04/05/21 08:16 Dose: 1 tab Documented by: Fluoxetine HCl (Fluoxetine Hcl 20 Mg Cap) 20 mg PO DAILY ALLY Stop: 05/06/21 08:59 Folic Acid (Folic Acid 1 Mg Tab) 1 mg PO BID ALLY Stop: 05/05/21 08:59 Last Admin: 04/05/21 08:10 Dose: 1 mg Documented by: Hydroxyzine HCl (Hydroxyzine Hcl 10 Mg Tab) 10 mg PO Q8H PRN PRN Reason: Anxiety Stop: 05/05/21 12:14 Furosemide 40 mg/ Syringe 4 mls @ 4 mls/min IV [id number] ALLY Stop: 05/05/21 08:59 Ceftriaxone Sodium 2,000 mg/ (Dextrose) 70 mls @ 100 mls/hr IV Q24H ALLY; Protoc ol Stop: 04/12/21 08:59 Last Infusion: 04/05/21 10:28 Dose: Infused Documented by: Doxycycline Hyclate 100 mg/ (Dextrose) 110 mls @ 50 mls/hr IV Q12H ALLY Stop: 04/12/21 07:29 Last Infusion: 04/05/21 10:28 Dose: Infused Documented by: Sodium Chloride (Nss) 250 mls @ 15 mls/hr IV .[id number] PRN PRN Reason: For Transfusion Stop: 04/06/21 01:53 Lorazepam (Lorazepam 1 Mg Tab) 1 mg PO Q4 PRN PRN Reason: Anxiety Stop: 05/05/21 14:33 Metoprolol Succinate (Metoprolol Succ 25mg Ext Rel Tab) 25 mg PO DAILY ALLY Stop: 05/05/21 08:59 Last Admin: 04/05/21 08:11 Dose: 25 mg Documented by: Miscellaneous (Remove Nicoderm Patch) 1 ea N/A DAILY@0859 ALLY Stop: 05/05/21 08:58 Last Admin: 04/05/21 08:11 Dose: 1 ea Documented by: Nicotine (Nicotine 7 Mg/24 Hr Tdsy) 7 mg TD DAILY [facility] Stop: 05/04/21 23:24 Last Admin: 04/05/21 08:11 Dose: 7 mg Documented by: Nitroglycerin (Nitroglycerin Sl 0.4 Mg/Tab Tab) 0.4 mg SL UD PRN PRN Reason: Chest Pain Stop: 05/04/21 23:00 Ondansetron HCl (Ondansetron Inj 2 Mg/Ml 2 Ml Vial) 4 mg IV Q6H PRN PRN Reason: Nausea Stop: 05/04/21 23:00 Potassium Chloride (Potassium Chloride 10 Meq Tabcr) 10 meq PO DAILY [facility] Stop: 05/05/21 08:59 Last Admin: 04/05/21 08:10 Dose: 10 meq Documented by:
[2021-04-05] MEDS ORDERED: SODIUM CHLORIDE 0.9% 250 ML IV PRN (15:53)
--- NOTE | 2021-04-05 15:55 | Hospitalist Progress Note ---
Date of Service April 05, 2021 Assessment & Plan (1) Symptomatic anemia: Present on admission with worsening SOB, fatigue and weakness Hgb dropped to 6.5 Case discussed with hem/onc that recommended work up for hemolysis anemia LDH and reticulocytes count midly elevated Peripheral smear showed Red cells appear mildly macrocytic and target cells are noted. Mild rouleaux formation is noted. No schistocytes Current abx screen negative Haptoglobin pending Result discussed with Dr. Oneil that recommended to transfused warm PRBC Type and crossed and will transfuse 1 unit PRBC Continue monitor CBC Diastolic heart failure Acute and chronic respiratory failure with hypoxia: CXR showed cardiomegaly with reticular interstitial opacities suggestive of pulmonary edema versus an interstitial pneumonitis. Received IV lasix Cardiology and pulm on board Oxygen supplement titrate from 5L to 2L to keep saturation around 92 Continue IV Rocephin and Doxycycline for now Will need outpatient pulmonary function test Will monitor closely Anxiety Mostly due to her health/illness Prozac increased to 20mg daily Ativan increased to 1 mg prn while in the hospital Pysch on board Hypokalemia K 3.3 K replaced Hx Hepatitis C Cirrhosis Gastro on board recommended OP hepatology follow up with imaging and potential IR transjugular liver biopsy with portal pressure/right heart pressure Follow a Low sodium DVT px on SCD due to anemia Admission and Anticipated Discharge Date Admission Date: April 04, 2021 Subjective Pt was seen and examined for follow of anemia, SOB and weankness Lying in bed with no distress Pt was tearful during the encounter She said that she is very anxious Pt said that she gets tired and runs out of breath with exertion Denies any chest pain, palpitation, dizziness and fever Review of Systems Review of Systems: All systems reviewed & are unremarkable except as noted in Subjective Physical Exam Physical Exam: General- No acute distress Head- atraumatic Eyes- PERRL, EOMI, ENT- oropharynx clear Neck- supple, no JVD Lungs- clear to auscultation Heart- regular rhythm; no murmur Abdomen- normal bowel sounds, soft, nontender Extremities- no calf tenderness, Neuro- alert, oriented x 3; PERRL, EOMI; no facial palsy; no dysarthria Skin- warm & dry Results & Data Results & Data ([facility]) Vital Signs (Past 12 Hours) Vital Signs Temp Pulse Pulse Resp BP Pulse Ox 04/05/21 15:48 36.8 C 85 20 100/58 L 93 04/05/21 15:08 82 04/05/21 11:28 36.8 C 82 19 91/57 L 98 04/05/21 10:49 96 04/05/21 07:48 36.9 C 88 19 105/67 100 04/05/21 07:42 80
[2021-04-05] MEDS: LORazepam 1 MG TAB PO PRN (19:58)
[2021-04-06] MEDS: LORazepam 1 MG TAB PO PRN ×3 (00:23→09:31)
[2021-04-06] MEDS: DOXYCYCLINE HYCLATE 100 MG in DEXTROSE 5% 100 ML IV SCH ×2 (05:28→17:59)
[2021-04-06 06:11] LABS: Basophils # (auto) 0.07 K/uL (0-0.2); Basophils % (auto) 0.8 %; Eosinophils # (auto) 0.14 K/uL (0-0.5); Eosinophils % (auto) 1.6 %; Hemoglobin 7.2 g/dL (12.0-16.0); Immature Granulocytes # (auto) 0.01 K/uL (0.00-0.02); Immature Granulocytes % (auto) 0.1 %; Mean Corpuscular Hemoglobin 34.1 pg (25-34); Mean Corpuscular Hgb Conc 32.7 g/dL (32-36); Mean Corpuscular Volume 104.3 fL (80-100); Monocytes # (auto) 0.65 K/uL (0.11-0.59); Monocytes % (auto) 7.6 %; Neutrophils # (auto) 6.48 K/uL (1.4-6.5); Neutrophils % (auto) 75.9 %; Platelet Count 138 K/uL (130-400); RDW Coefficient of Variation 16.2 % (11.5-14.5); Red Blood Count 2.11 M/uL (4.2-5.4); White Blood Count 8.55 K/uL (4.8-10.8)
[2021-04-06 06:40] LABS: Anisocytosis Present
[2021-04-06 06:53] LABS: BUN Creatinine Ratio 7.7 (10-20); Calcium 6.8 mg/dl (8.5-10.1); Creatinine Clr Calc Pharmacy 29.1 ml/min; Est GFR (African American) 23.9 ml/min; Est GFR (Non-African American) 20.6 ml/min; Potassium 4.2 mmol/L (3.5-5.1)
[2021-04-06] MEDS: FOLIC ACID 1 MG TAB PO SCH ×2 (08:17→19:53)
[2021-04-06] MEDS: BUPRENORPHINE/NALOXONE 8/2 MG TAB SL SCH (08:17)
[2021-04-06] MEDS: NICOTINE 7 MG/24 HR TDSY TD SCH (08:18)
[2021-04-06] MEDS: FLUoxetine HCL 20 MG CAP PO SCH (08:18)
[2021-04-06] MEDS: METOPROLOL SUCC 25MG EXT REL TAB PO SCH (08:19)
[2021-04-06] MEDS: cefTRIAXone SODIUM 2,000 MG in DEXTROSE 5% 50 ML IV SCH (08:28)
[2021-04-06 09:22] LABS: Hepatitis B Surf Ag Rflx Conf Neg (Neg)
[2021-04-06] MEDS: POTASSIUM CHLORIDE 10 MEQ TABCR PO SCH (11:27)
[2021-04-06 16:24] LABS: Hematocrit (blood only) 20.9 % (37-47)
[2021-04-06] MEDS ORDERED: SODIUM CHLORIDE 0.9% 250 ML IV PRN (17:00)
--- NOTE | 2021-04-06 20:01 | Hospitalist Progress Note ---
Date of Service April 06, 2021 Assessment & Plan (1) Symptomatic anemia: Present on admission with worsening SOB, fatigue and weakness Hgb dropped to 6.5 Case discussed with hem/onc that recommended work up for hemolysis anemia LDH and reticulocytes count midly elevated Peripheral smear showed Red cells appear mildly macrocytic and target cells are noted. Mild rouleaux formation is noted. No schistocytes Current abx screen negative Haptoglobin pending Result discussed with Dr. Oneil that recommended to transfused warm PRBC S/P 1 unit PRBC yesterday Will transfuse an additional 1 unit PRBC Continue monitor CBC Diastolic heart failure Acute and chronic respiratory failure with hypoxia: CXR showed cardiomegaly with reticular interstitial opacities suggestive of pulmonary edema versus an interstitial pneumonitis. Received IV lasix Cardiology and pulm on board Oxygen supplement titrate from 5L to 2L to keep saturation around 92 Continue IV Rocephin and Doxycycline for now Will need outpatient pulmonary function test Will monitor closely for volume overload since pt might get an additional 1 unit PRBC later Anxiety Mostly due to her health/illness Prozac increased to 20mg daily Ativan increased to 1 mg prn while in the hospital Anxiety improved Psych on board Acute renal failure Possible related to anemia/hypotension and diuretic Creatinine 2.78 Will transfuse 1 unit PRBC Will consult nephrology Continue monitor BMP Hypokalemia K stable K replaced Hx Hepatitis C Cirrhosis Gastro on board recommended OP hepatology follow up with imaging and potential IR transjugular liver biopsy with portal pressure/right heart pressure Follow a Low sodium DVT px on SCD due to anemia Admission and Anticipated Discharge Date Admission Date: April 04, 2021 Subjective Pt was seen and examined for follow of anemia, SOB and weankness Lying in bed with no distress Pt said that her anxiety is much better She said that she can breath better Spoke to on the phone and provided with update Denies any chest pain, palpitation, dizziness and fever Review of Systems 2 Review of Systems: All systems reviewed & are unremarkable except as noted in Subjective Physical Exam Physical Exam: General- No acute distress Head- atraumatic Eyes- PERRL, EOMI, ENT- oropharynx clear Neck- supple, no JVD Lungs- Diminished BS Heart- regular rhythm; no murmur Abdomen- normal bowel sounds, soft, nontender Extremities- no calf tenderness, Neuro- alert, oriented x 3; PERRL, EOMI; no facial palsy; no dysarthria Skin- warm & dry Results & Data Results & Data ([facility]) Vital Signs (Past 12 Hours) Vital Signs Temp Pulse Pulse Pulse Resp BP BP 04/06/21 19:56 36.7 C 79 22 93/52 L 04/06/21 17:17 93/65 L 04/06/21 16:00 82 04/06/21 15:50 36.7 C 75 20 84/61 L 04/06/21 11:42 36.8 C 86 86 20 92/47 L 04/06/21 08:11 36.8 C 82 20 100/58 L Pulse Ox 04/06/21 19:56 95 04/06/21 17:17 04/06/21 16:00 04/06/21 15:50 93 04/06/21 11:42 95 04/06/21 08:11 100
[2021-04-07] MEDS: LORazepam 1 MG TAB PO PRN ×4 (01:09→20:56)
[2021-04-07] MEDS: DOXYCYCLINE HYCLATE 100 MG in DEXTROSE 5% 100 ML IV SCH ×2 (05:06→19:09)
[2021-04-07 07:11] LABS: Hematocrit (blood only) 23.8 % (37-47); Hemoglobin 7.9 g/dL (12.0-16.0); Mean Corpuscular Hemoglobin 34.1 pg (25-34); Mean Corpuscular Hgb Conc 33.2 g/dL (32-36); Mean Corpuscular Volume 102.6 fL (80-100); Mean Platelet Volume 10.6 fL (7.4-10.4); Platelet Count 145 K/uL (130-400); RDW Coefficient of Variation 16.9 % (11.5-14.5); Red Blood Count 2.32 M/uL (4.2-5.4); White Blood Count 8.12 K/uL (4.8-10.8)
[2021-04-07 07:44] LABS: BUN Creatinine Ratio 8.9 (10-20); Calcium 7.7 mg/dl (8.5-10.1); Creatinine Clr Calc Pharmacy 24.1 ml/min; Est GFR (African American) 19.1 ml/min; Est GFR (Non-African American) 16.5 ml/min; Potassium 4.1 mmol/L (3.5-5.1)
[2021-04-07] MEDS: POTASSIUM CHLORIDE 10 MEQ TABCR PO SCH (08:09)
[2021-04-07] MEDS: FOLIC ACID 1 MG TAB PO SCH ×2 (08:09→20:56)
[2021-04-07] MEDS: BUPRENORPHINE/NALOXONE 8/2 MG TAB SL SCH (08:09)
[2021-04-07] MEDS: FLUoxetine HCL 20 MG CAP PO SCH (08:10)
[2021-04-07] MEDS: NICOTINE 7 MG/24 HR TDSY TD SCH (08:10)
[2021-04-07] MEDS: METOPROLOL SUCC 25MG EXT REL TAB PO SCH (08:10)
[2021-04-07] MEDS: cefTRIAXone SODIUM 2,000 MG in DEXTROSE 5% 50 ML IV SCH (09:34)
[2021-04-07] MEDS: FUROSEMIDE 60 MG in SYRINGE 0 ML IV SCH ×2 (12:40→17:28)
--- NOTE | 2021-04-07 12:53 | Cardiology Progress Note ---
Date of Service April 06, 2021 Assessment & Plan (1) Diastolic heart failure: (2) Acute and chronic respiratory failure with hypoxia: (3) Macrocytic anemia: (4) Cold agglutinin disease: (5) Cirrhosis: The patient successfully received a blood transfusion with improvement in her hemoglobin. She may benefit from additional blood today. Admission and Anticipated Discharge Date Admission Date: April 04, 2021 Subjective Patient with uneventful night feels improved after blood transfusion. Review of Systems Review of Systems: All systems reviewed & are unremarkable except as noted in Subjective Physical Exam Physical Exam: General: no acute distress and stated age Head: normocephalic, no masses, lesions, tenderness or abnormalities Eyes: conjunctiva are pink and non-injected, sclera clear Neck: supple, no adenopathy, no bruits, normal jugular venous pulse, no hepatojugular reflux Chest: normal shape and normal respiratory effort Lungs: clear to auscultation and percussion Cardiac Exam: - regular rate & rhythm, no murmurs gallops or rubs - normal S1, normal S2 Pulses: 2(+) throughout Abdomen: abdomen soft, non-tender, no abnormal masses and no hepatosplenomegaly Musculoskeletal: no gait disturbance, no joint inflammation, no deforming arthritis Extremities: no edema and no cyanosis Neuro: grossly normal exam Results & Data ([facility]) Vital Signs (Past 12 Hours) Vital Signs Temp Pulse Pulse Pulse Resp BP BP 04/07/21 12:02 36.6 C 79 19 101/68 04/07/21 07:48 36.8 C 80 19 106/66 04/07/21 04:16 36.7 C 67 20 100/54 L 04/07/21 01:00 36.7 C 70 18 Pulse Ox 04/07/21 12:02 98 04/07/21 07:48 100 04/07/21 04:16 97 04/07/21 01:00 96 Laboratory Results Laboratory Results - last 24 hr 04/04/21 04/06/21 04/07/21 19:50 16:07 06:55 WBC 8.12 RBC 2.32 L Hgb 7.0 L 7.9 L Hct 20.9 L* 23.8 L MCV 102.6 H MCH 34.1 H MCHC 33.2 RDW Std Deviation 62.0 H RDW Coeff of Christine 16.9 H Plt Count 145 MPV 10.6 H Sodium Potassium Chloride Carbon Dioxide Anion Gap BUN Creatinine Est Cr Clr Drug Dosing Est GFR ( Amer) Est GFR (Non-Af Amer) BUN/Creatinine Ratio Glucose Calcium Blood Type A Positive Antibody Screen NEGATIVE Crossmatch See Detail 04/07/21 06:55 WBC RBC Hgb Hct MCV MCH MCHC RDW Std Deviation RDW Coeff of Christine Plt Count MPV Sodium 134 L Potassium 4.1 Chloride 97 L Carbon Dioxide 30 Anion Gap 7.0 BUN 30 H Creatinine 3.34 H D Est Cr Clr Drug Dosing 24.1 Est GFR ( Amer) 19.1 Est GFR (Non-Af Amer) 16.5 BUN/Creatinine Ratio 8.9 L Glucose 77 Calcium 7.7 L Blood Type Antibody Screen Crossmatch Medications Administered Current Inpatient Medications Acetaminophen (Acetaminophen 325 Mg Tab) 650 mg PO Q4H PRN PRN Reason: Pain or Fever Stop: 05/04/21 23:00 Albuterol (Albuterol Hfa 8 Gm Inhaler) 2 puffs INH Q4H PRN PRN Reason: Shortness Of Breath Or Wheezing Stop: 05/04/21 23:00 Buprenorphine/Naloxone (Buprenorphine/Naloxone 8/2 Mg Tab) 1 tab SL Q24H [facility] Stop: 05/05/21 08:59 Last Admin: 04/07/21 08:09 Dose: 1 tab Documented by: Fluoxetine HCl (Fluoxetine Hcl 20 Mg Cap) 20 mg PO DAILY [facility] Stop: 05/06/21 08:59 Last Admin: 04/07/21 08:10 Dose: 20 mg Documented by: Folic Acid (Folic Acid 1 Mg Tab) 1 mg PO BID [facility] Stop: 05/05/21 08:59 Last Admin: 04/07/21 08:09 Dose: 1 mg Documented by: Hydroxyzine HCl (Hydroxyzine Hcl 10 Mg Tab) 10 mg PO Q8H PRN PRN Reason: Anxiety Stop: 05/05/21 12:14 Ceftriaxone Sodium 2,000 mg/ (Dextrose) 70 mls @ 100 mls/hr IV Q24H [facility]; Protocol Stop: 04/12/21 08:59 Last Infusion: 04/07/21 10:16 Dose: Infused Documented by: Doxycycline Hyclate 100 mg/ (Dextrose) 110 mls @ 50 mls/hr IV Q12H [facility] Stop: 04/12/21 07:29 Last Infusion: 04/07/21 07:18 Dose: Infused Documented by: Furosemide 60 mg/ Syringe 6 mls @ 4 mls/min IV [id number] [facility] Stop: 05/07/21 10:29 Lorazepam (Lorazepam 1 Mg Tab) 1 mg PO Q4 PRN PRN Reason: Anxiety Stop: 05/05/21 14:33 Last Admin: 04/07/21 08:09 Dose: 1 mg Documented by: Metoprolol Succinate (Metoprolol Succ 25mg Ext Rel Tab) 25 mg PO DAILY ALLY Stop: 05/05/21 08:59 Last Admin: 04/07/21 08:10 Dose: 25 mg Documented by: Miscellaneous (Remove Nicoderm Patch) 1 ea N/A DAILY@0859 [facility] Stop: 05/05/21 08:58 Last Admin: 04/07/21 08:30 Dose: 1 ea Documented by: Nicotine (Nicotine 7 Mg/24 Hr Tdsy) 7 mg TD DAILY [facility] Stop: 05/04/21 23:24 Last Admin: 04/07/21 08:10 Dose: 7 mg Documented by: Nitroglycerin (Nitroglycerin Sl 0.4 Mg/Tab Tab) 0.4 mg SL UD PRN PRN Reason: Chest Pain Stop: 05/04/21 23:00 Ondansetron HCl (Ondansetron Inj 2 Mg/Ml 2 Ml Vial) 4 mg IV Q6H PRN PRN Reason: Nausea Stop: 05/04/21 23:00 Potassium Chloride (Potassium Chloride 10 Meq Tabcr) 10 meq PO DAILY [facility] Stop: 05/05/21 08:59 Last Admin: 04/07/21 08:09 Dose: 10 meq Documented by:
--- NOTE | 2021-04-07 12:55 | Cardiology Progress Note ---
Date of Service April 07, 2021 Assessment & Plan (1) Diastolic heart failure: (2) Acute and chronic respiratory failure with hypoxia: (3) Macrocytic anemia: (4) Cold agglutinin disease: (5) Cirrhosis: The patient continues to improve. Her hemoglobin is now up to 7.9. She is still on IV push diuretics. Nephrology is on the case and can adjust as needed based on her renal function. Admission and Anticipated Discharge Date Admission Date: April 04, 2021 Subjective The patient is resting comfortably. Feels improved after blood transfusions. Review of Systems Review of Systems: All systems reviewed & are unremarkable except as noted in Subjective Physical Exam Physical Exam: General: no acute distress and stated age Head: normocephalic, no masses, lesions, tenderness or abnormalities Eyes: conjunctiva are pink and non-injected, sclera clear Neck: supple, no adenopathy, no bruits, normal jugular venous pulse, no hepatojugular reflux Chest: normal shape and normal respiratory effort Lungs: clear to auscultation and percussion Cardiac Exam: - regular rate & rhythm, no murmurs gallops or rubs - normal S1, normal S2 Pulses: 2(+) throughout Abdomen: abdomen soft, non-tender, no abnormal masses and no hepatosplenomegaly Musculoskeletal: no gait disturbance, no joint inflammation, no deforming arthritis Extremities: no edema and no cyanosis Neuro: grossly normal exam Results & Data ([facility]) Vital Signs (Past 12 Hours) Vital Signs Temp Pulse Pulse Pulse Resp BP BP 04/07/21 12:02 36.6 C 79 19 101/68 04/07/21 07:48 36.8 C 80 19 106/66 04/07/21 04:16 36.7 C 67 20 100/54 L 04/07/21 01:00 36.7 C 70 18 Pulse Ox 04/07/21 12:02 98 04/07/21 07:48 100 04/07/21 04:16 97 04/07/21 01:00 96 Laboratory Results Laboratory Results - last 24 hr 04/04/21 04/06/21 04/07/21 19:50 16:07 06:55 WBC 8.12 RBC 2.32 L Hgb 7.0 L 7.9 L Hct 20.9 L* 23.8 L MCV 102.6 H MCH 34.1 H MCHC 33.2 RDW Std Deviation 62.0 H RDW Coeff of Christine 16.9 H Plt Count 145 MPV 10.6 H Sodium Potassium Chloride Carbon Dioxide Anion Gap BUN Creatinine Est Cr Clr Drug Dosing Est GFR ( Amer) Est GFR (Non-Af Amer) BUN/Creatinine Ratio Glucose Calcium Blood Type A Positive Antibody Screen NEGATIVE Crossmatch See Detail 04/07/21 06:55 WBC RBC Hgb Hct MCV MCH MCHC RDW Std Deviation RDW Coeff of Christine Plt Count MPV Sodium 134 L Potassium 4.1 Chloride 97 L Carbon Dioxide 30 Anion Gap 7.0 BUN 30 H Creatinine 3.34 H D Est Cr Clr Drug Dosing 24.1 Est GFR ( Amer) 19.1 Est GFR (Non-Af Amer) 16.5 BUN/Creatinine Ratio 8.9 L Glucose 77 Calcium 7.7 L Blood Type Antibody Screen Crossmatch Medications Administered Current Inpatient Medications Acetaminophen (Acetaminophen 325 Mg Tab) 650 mg PO Q4H PRN PRN Reason: Pain or Fever Stop: 05/04/21 23:00 Albuterol (Albuterol Hfa 8 Gm Inhaler) 2 puffs INH Q4H PRN PRN Reason: Shortness Of Breath Or Wheezing Stop: 05/04/21 23:00 Buprenorphine/Naloxone (Buprenorphine/Naloxone 8/2 Mg Tab) 1 tab SL Q24H [facility] Stop: 05/05/21 08:59 Last Admin: 04/07/21 08:09 Dose: 1 tab Documented by: Fluoxetine HCl (Fluoxetine Hcl 20 Mg Cap) 20 mg PO DAILY [facility] Stop: 05/06/21 08:59 Last Admin: 04/07/21 08:10 Dose: 20 mg Documented by: Folic Acid (Folic Acid 1 Mg Tab) 1 mg PO BID [facility] Stop: 05/05/21 08:59 Last Admin: 04/07/21 08:09 Dose: 1 mg Documented by: Hydroxyzine HCl (Hydroxyzine Hcl 10 Mg Tab) 10 mg PO Q8H PRN PRN Reason: Anxiety Stop: 05/05/21 12:14 Ceftriaxone Sodium 2,000 mg/ (Dextrose) 70 mls @ 100 mls/hr IV Q24H [facility]; Protocol Stop: 04/12/21 08:59 Last Infusion: 04/07/21 10:16 Dose: Infused Documented by: Doxycycline Hyclate 100 mg/ (Dextrose) 110 mls @ 50 mls/hr IV Q12H [facility] Stop: 04/12/21 07:29 Last Infusion: 04/07/21 07:18 Dose: Infused Documented by: Furosemide 60 mg/ Syringe 6 mls @ 4 mls/min IV BID17 [facility] Stop: 05/07/21 10:29 Lorazepam (Lorazepam 1 Mg Tab) 1 mg PO Q4 PRN PRN Reason: Anxiety Stop: 05/05/21 14:33 Last Admin: 04/07/21 08:09 Dose: 1 mg Documented by: Metoprolol Succinate (Metoprolol Succ 25mg Ext Rel Tab) 25 mg PO DAILY [facility] Stop: 05/05/21 08:59 Last Admin: 04/07/21 08:10 Dose: 25 mg Documented by: Miscellaneous (Remove Nicoderm Patch) 1 ea N/A DAILY@0859 [facility] Stop: 05/05/21 08:58 Last Admin: 04/07/21 08:30 Dose: 1 ea Documented by: Nicotine (Nicotine 7 Mg/24 Hr Tdsy) 7 mg TD DAILY [facility] Stop: 05/04/21 23:24 Last Admin: 04/07/21 08:10 Dose: 7 mg Documented by: Nitroglycerin (Nitroglycerin Sl 0.4 Mg/Tab Tab) 0.4 mg SL UD PRN PRN Reason: Chest Pain Stop: 05/04/21 23:00 Ondansetron HCl (Ondansetron Inj 2 Mg/Ml 2 Ml Vial) 4 mg IV Q6H PRN PRN Reason: Nausea Stop: 05/04/21 23:00 Potassium Chloride (Potassium Chloride 10 Meq Tabcr) 10 meq PO DAILY [facility] Stop: 05/05/21 08:59 Last Admin: 04/07/21 08:09 Dose: 10 meq Documented by:
--- NOTE | 2021-04-07 14:09 | Consultation Report ---
DATE OF CONSULTATION: 04/07/2021 NEPHROLOGY CONSULTATION NOTE REASON FOR CONSULT: Acute renal failure. HISTORY OF PRESENT ILLNESS: The patient is a 41-year-old female with multiple chronic medical problems including chronic respiratory failure with hypoxia, on 5 liters of oxygen, obstructive sleep apnea, chronic right-sided heart failure, liver cirrhosis, cold agglutinin disease, chronic severe anemia, hepatitis C, anxiety, depression. She presented to the hospital 3 days ago with increasing shortness of breath. The patient has not had good healthcare and significant issues with nonadherence. She is followed by hematology, and during the previous admission in [facility], she received plasmapheresis as well as rituximab, both as an inpatient as well as outpatient for Cold Agglu Dz but Normal kidney function all along. Since this admission, renal function seems to be getting worse. Her admission creatinine was 1.48, which is slightly higher than her baseline of 1.0, but since then it has gone up steadily and this morning is up to 3.34. She received IV Lasix in the first few days, but currently Lasix is on hold pending nephrology evaluation. The patient reports feeling somewhat better since being admitted. She has received 2 units of blood transfusion since being admitted. She has been seen by cardiology and does have findings suggestive of pulmonary edema. It is not entirely clear how much urine she is making with the current dose of Lasix. Her vitals are relatively stable but somewhat low blood pressure. She denies taking any NSAIDs as an outpatient. She is on Lasix 80 mg twice daily as per the patient. The patient is adamant that she is going home tomorrow regardless of her medical situation. PAST MEDICAL AND SURGICAL HISTORY: Includes chronic hepatitis C, liver cirrhosis, chronic anemia related with cold agglutinin disease, status post plasmapheresis and rituximab, anemia, depression, anxiety, posttraumatic stress disorder, chronic right-sided heart failure, obstructive sleep apnea, hypothyroidism, chronic respiratory failure with hypoxia, on 5 liters of oxygen all the time, bronchoscopy, left and right heart catheterization, knee arthroscopy. MEDICATIONS: Medications at home are reviewed and include buprenorphine/naloxone, fluoxetine, folic acid, Lasix 80 mg twice daily, metoprolol, potassium chloride 10 daily. FAMILY HISTORY: Significant for father with hypertension. Mother has lung disorder and lupus. Sister has endometriosis. SOCIAL HISTORY: She lives with her fiance. Smokes half a pack of cigarettes. No alcohol use now, no known drug use now, but she has had a history of both in the past. REVIEW OF SYSTEMS: As per HPI; unless stated otherwise, 12 systems reviewed are negative. Positive review of system includes increasing weakness, fatigue as well as shortness of breath. However, she did not have any edema, chest pain, headache, nausea, vomiting, diarrhea or any blood in the stool. ALLERGIES: LIST WAS REVIEWED AND IS PER THE RECONCILIATION LIST. PHYSICAL EXAMINATION: GENERAL: Moderately built white female who is not in overt respiratory distress. She is on oxygen 5 liters. VITAL SIGNS: Otherwise fairly stable. Blood pressure is on the low side 101/68, pulse rate 79, temperature 36.6, 98% on nasal cannula. CHEST: Bilaterally decreased breath sounds with basal crackles. CARDIOVASCULAR: S1 and S2 regular. ABDOMEN: Soft, nontender. EXTREMITIES: Show no edema. NEUROLOGIC: She is awake, alert, oriented x3. Normal speech and was able to give fairly detailed and accurate medical history. Moving all 4 extremities. SKIN: Shows no rash. CHEST X-RAY: Shows pulmonary congestion. LABORATORY TEST: Shows worsening kidney function with this morning labs showing creatinine of 3.34, BUN is 30. Sodium 134, potassium 4.1, hemoglobin has been as low as 6.5, this morning was 7.9 after blood transfusion. ASSESSMENT AND PLAN: A 41-year-old female who unfortunately has very extensive and serious medical problems at baseline, but more recent kidney function was normal considering her extensive medical problems. At this time, creatinine is rising and is secondary to acute tubular necrosis in the setting of ongoing acute medical issues. I expect the creatinine to get further worsen; however, this has nothing to do with Lasix as she is still fluid overloaded and has congestive heart failure and needs to be diuresed. In fact, I will increase the dose of her Lasix to 60 mg IV twice daily starting now. Her overall prognosis seems pretty bad, but she does not have full insight and was very adamant to me that she will leave the hospital tomorrow regardless of the medical situation. We need to see that the creatinine is actually stabilized and not rising every day before we send her home. Her urine sediment is quite active, consistent with acute tubular necrosis. Her most recent outpatient creatinine was 1.0 on 01/18/2021. She has already received full treatment for the cold agglutinin disease including plasmapheresis and Rituxan, so I do not believe she will benefit with this treatment at this point of time as I do not believe this is the cause of of kidney issue at this time. RECOMMENDATIONS: 1. Lasix 60 mg IV twice daily. 2. Expect the creatinine to get slightly higher before it starts getting better. 3. Consider hematology consult if available. 4. Blood transfusion to keep hemoglobin above 7.5. 5. Her discharge can only happen when we see the creatinine starting to trend down. It does not have to come down to normal, but at least It should be trending down before we send her home. MTDD
--- NOTE | 2021-04-07 14:40 | Ultrasound Report ---
RENAL ULTRASOUND HISTORY: elevated creatinine COMPARISON: Abdomen and pelvis CT 07/30/2020. FINDINGS: Right kidney: 11.9 cm. No hydronephrosis. Normal corticomedullary differentiation and cortical thickn ess. Left kidney: 11.9 cm. No hydronephrosis. Normal corticomedullary differentiation and cortical thickne ss. Bladder: Mild bladder wall thickening. Only the left ureteral jet was identified this time. Miscellaneous: The spleen is enlarged measuring 19 cm in length. This has progressed in the interval. IMPRESSION: 1. Normal kidneys. 2. Mild bladder wall thickening. 3. Splenomegaly measuring 19 cm in length. This has progressed in the interval. ACT 112: Negative or not required by law. Electronically signed by: Jose L Gold M.D. 04/07/2021 2:38 PM
--- NOTE | 2021-04-07 15:28 | Pulmonology Progress Note ---
Date of Service April 07, 2021 Assessment & Plan (1) Acute and chronic respiratory failure with hypoxia: 41-year-old female with a past medical history of tobacco abuse, diastolic CHF, cold agglutinins, obesity and severe anxiety presenting to the hospital due to lethargy and shortness of breath. Shortness of breath: I suspect this is multifactorial related to her underlying severe anemia, acute on chronic diastolic heart failure and possibly a component of interstitial lung disease. Unfortunately, she was previously intolerant of bronchoscopy due to severe anxiety. At this time, I think that diastolic heart failure is playing a bigger role in her symptoms along with her anxiety. It seems that she has improved from a respiratory standpoint after diuresis. Possible interstitial lung disease: She would benefit from pulmonary function testing as an outpatient and follow-up imaging once she is more euvolemic. She can follow-up with her outpatient senior living sales counselor in [facility]. Prior work-up for mixed connective tissue disorder in April 2020 was negative. Pulmonary renal syndrome seems less likely at this time. Cold agglutinins related anemia: She was previously on Rituxan therapy and plasmapheresis. Anemia improved after blood transfusions. Recommend hematology consult. I suspect that she had high-output cardiac failure due to anemia. Tricuspid regurgitation: She does have a history of moderate tricuspid regurgitation seen on echo in July 2020. Pulmonary artery systolic pressures were elevated at that time to 39 mmHg. Right heart catheterization in August 2020 in [facility] did not demonstrate evidence of pulmonary hypertension. She did have elevated wedge pressures at that time consistent with elevated left-sided pressures. Thank you for the consultation. Pulmonary will sign off. Please call with questions. (2) Diastolic heart failure: (3) Macrocytic anemia: (4) Cold agglutinin disease: (5) Tricuspid regurgitation: Admission and Anticipated Discharge Date Admission Date: April 04, 2021 Subjective Patient seen and examined this morning. She feels that her breathing is improved today. She acknowledges that she has severe anxiety which is likely contributing to her shortness of breath symptoms. She denies any significant cough. Her lower extremity edema is improved. She just completed a renal ultrasound. She is having a migraine presently. Review of Systems Review of Systems: All systems reviewed & are unremarkable except as noted in HPI & below Physical Exam Constitutional: WD/WN, vitals as above Respiratory: normal respiratory effort, lungs clear to auscultation Cardiovascular: RRR, no murmur, no edema Musculoskeletal: no cyanosis or clubbing, extremities motor strength 5/5 Skin: no rashes, warm and dry Neurologic: PERRL, EOMI, accommodation nl, no face palsy, no dysarthria Psychiatric: A+Ox3, euthymic affect Results & Data Results & Data ([facility]) Vital Signs (Past 12 Hours) Vital Signs Temp Pulse Pulse Resp BP BP Pulse Ox 04/07/21 15:22 99.0 F 77 19 110/63 94 04/07/21 12:02 97.9 F 79 19 101/68 98 04/07/21 07:48 98.2 F 80 19 106/66 100 04/07/21 04:16 98.1 F 67 20 100/54 L 97 Vital signs, labs and imaging reviewed. PG Care Time/CCT Total # of Minutes Spent Total Time Spent with Patient: Total time spent is greater than 50% in coordination of care (as documented) at patient's floor/unit and/or counseling patient: Coding Level of Care Code 92940 Subseq Hosp Care Lvl 2 Diagnoses Acute and chronic respiratory failure with hypoxia J96.21 Diastolic heart failure I50.30 Macrocytic anemia D53.9 Cold agglutinin disease D59.1 Tricuspid regurgitation I07.1
--- NOTE | 2021-04-07 19:15 | Hospitalist Progress Note ---
Date of Service April 07, 2021 Assessment & Plan (1) Symptomatic anemia: Present on admission with worsening SOB, fatigue and weakness Hgb dropped to 6.5 Case discussed with hem/onc that recommended work up for hemolysis anemia LDH and reticulocytes count midly elevated Peripheral smear showed Red cells appear mildly macrocytic and target cells are noted. Mild rouleaux formation is noted. No schistocytes Current abx screen negative Haptoglobin pending Result discussed with Dr. Oneil that recommended to transfused warm PRBC S/P 2 unit PRBC during the hospital coarse Hgb 7.9 today Haptoglobin normal Continue monitor CBC Diastolic heart failure Acute and chronic respiratory failure with hypoxia: CXR showed cardiomegaly with reticular interstitial opacities suggestive of pulmonary edema versus an interstitial pneumonitis. Received IV lasix Cardiology and pulm on board Continue Oxygen supplement titrate from 5L to 2L to keep saturation around 92 Continue IV Rocephin and Doxycycline for now Will need outpatient pulmonary function test Nephrology recommended lasix 60mg IV BID Will repeat CXR in am Continue monitor BMP while on IV lasix Anxiety Mostly due to her health/illness Prozac increased to 20mg daily Ativan increased to 1 mg prn while in the hospital Anxiety improved Psych on board Acute renal failure Possible related to anemia/hypotension and diuretic Creatinine worsening to 3.3 Renal u/s showed normal kidney Nephrology on board resumed the lasix to 60mg BID Continue monitor BMP Splenomegaly U/S showed splenomegaly measuring 19 cm in length. This has progressed in the interval. Need to monitor Hypokalemia K stable K replaced Hx Hepatitis C Cirrhosis Gastro on board recommended OP hepatology follow up with imaging and potential IR transjugular liver biopsy with portal pressure/right heart pressure Follow a Low sodium DVT px on SCD due to anemia Disposition Will discharge home once medically stable Admission and Anticipated Discharge Date Admission Date: April 04, 2021 Subjective Pt was seen and examined for follow of anemia, SOB and weakness Lying in bed with no distress resting Pt said that she feels much better She said that she can breath better She is very anxious to go home. She said that she would go home tomorrow no matter what Denies any chest pain, palpitation, dizziness and fever Review of Systems Review of Systems: All systems reviewed & are unremarkable except as noted in Subjective Physical Exam Physical Exam: General- No acute distress Head- atraumatic Eyes- PERRL, EOMI, ENT- Poor dentition Neck- supple, no JVD Lungs- Diminished BS Heart- regular rhythm; no murmur Abdomen- normal bowel sounds, soft, nontender Extremities- no calf tenderness, Neuro- alert, oriented x 3; PERRL, EOMI; no facial palsy; no dysarthria Skin- warm & dry Results & Data Results & Data ([facility]) Vital Signs (Past 12 Hours) Vital Signs Temp Pulse Resp BP BP Pulse Ox 04/07/21 15:22 37.2 C 77 19 110/63 94 04/07/21 12:02 36.6 C 79 19 101/68 98 04/07/21 07:48 36.8 C 80 19 106/66 100
[2021-04-08] MEDS: LORazepam 1 MG TAB PO PRN ×3 (03:04→17:17)
[2021-04-08 05:52] LABS: Mean Corpuscular Hemoglobin 34.2 pg (25-34); Mean Corpuscular Hgb Conc 33.3 g/dL (32-36); Mean Corpuscular Volume 102.6 fL (80-100); Mean Platelet Volume 10.3 fL (7.4-10.4); Platelet Count 146 K/uL (130-400); RDW Coefficient of Variation 16.7 % (11.5-14.5); RDW Standard Deviation 61.3 fL (36.4-46.3); Red Blood Count 2.34 M/uL (4.2-5.4); White Blood Count 7.61 K/uL (4.8-10.8)
[2021-04-08] MEDS: DOXYCYCLINE HYCLATE 100 MG in DEXTROSE 5% 100 ML IV SCH ×2 (05:56→17:17)
[2021-04-08 06:34] LABS: BUN Creatinine Ratio 8.9 (10-20); Calcium 8.4 mg/dl (8.5-10.1); Est GFR (African American) 18.1 ml/min; Est GFR (Non-African American) 15.6 ml/min; Potassium 4.8 mmol/L (3.5-5.1)
[2021-04-08] MEDS: FLUoxetine HCL 20 MG CAP PO SCH (08:14)
[2021-04-08] MEDS: POTASSIUM CHLORIDE 10 MEQ TABCR PO SCH (08:15)
[2021-04-08] MEDS: FOLIC ACID 1 MG TAB PO SCH ×2 (08:15→20:48)
[2021-04-08] MEDS: NICOTINE 7 MG/24 HR TDSY TD SCH (08:15)
[2021-04-08] MEDS: FUROSEMIDE 60 MG in SYRINGE 0 ML IV SCH ×2 (08:15→17:22)
[2021-04-08] MEDS: METOPROLOL SUCC 25MG EXT REL TAB PO SCH (08:15)
[2021-04-08] MEDS: cefTRIAXone SODIUM 2,000 MG in DEXTROSE 5% 50 ML IV SCH (08:16)
[2021-04-08] MEDS: BUPRENORPHINE/NALOXONE 8/2 MG TAB SL SCH (08:26)
--- NOTE | 2021-04-08 09:46 | Nephrology Progress Note ---
Date of Service April 08, 2021 Assessment & Plan (1) KENIA (acute kidney injury): Patient with acute kidney injury likely due to ischemic ATN in setting of infection. Baseline creatinine of 1. Creatinine still uptrending to 3.5 today from 3.3 yesterday. Avoid nephrotoxins. Monitor input output and daily standing weight. We will continue to monitor renal function with daily BMP. (2) Acute and chronic respiratory failure with hypoxia: Patient is improving. Continue Lasix 60 mg IV twice daily. Monitor input output. Titrate FiO2 to maintain sats above 90. Admission and Anticipated Discharge Date Admission Date: April 04, 2021 Subjective Seen in follow-up for acute kidney injury. She feels better today. Breathing is at baseline. No leg swelling. She reports increased urine output. Creatinine still uptrending 3.5 today. Review of Systems Review of Systems: All systems reviewed & are unremarkable except as noted in HPI & below Physical Exam Physical Exam: General exam: Appears comfortable, no acute distress, on oxygen 2l HEENT: Pupils are equal and reactive to light Neck: No JVD, neck is supple trachea is midline Respiratory system: Clear breath sounds bilaterally. Gastrointestinal: Abdomen is soft, non distended, non tender, bowel sounds are present CVS: Regular rate and rhythm. No murmurs, rubs or gallops Musculoskeletal: No joint or muscle tenderness Extremities: Non tender, no edema, peripheral pulses are present Neuro: Oriented, no tremors, no focal neurological deficits Skin: No rashes Results & Data ([facility]) Vital Signs (Past 12 Hours) Vital Signs Temp Pulse Pulse Resp BP BP Pulse Ox 04/08/21 09:00 72 04/08/21 07:03 36.9 C 74 19 107/66 99 04/08/21 03:02 36.8 C 73 21 103/74 98 04/07/21 23:15 36.6 C 70 18 95/65 L 100 Laboratory Results 04/08/21 05:27 04/08/21 05:27 WBC 7.61 RBC 2.34 L MCV 102.6 H MCH 34.2 H MCHC 33.3 RDW Std Deviation 61.3 H RDW Coeff of Christine 16.7 H Plt Count 146 MPV 10.3
--- NOTE | 2021-04-08 18:03 | Hospitalist Progress Note ---
Date of Service April 08, 2021 Assessment & Plan (1) Symptomatic anemia: Present on admission with worsening SOB, fatigue and weakness Hgb dropped to 6.5 Case discussed with hem/onc that recommended work up for hemolysis anemia LDH and reticulocytes count midly elevated Peripheral smear showed Red cells appear mildly macrocytic and target cells are noted. Mild rouleaux formation is noted. No schistocytes Current abx screen negative Haptoglobin pending Result discussed with Dr. Oneil that recommended to transfused warm PRBC S/P 2 unit PRBC during the hospital coarse Hgb 8 today Haptoglobin normal Continue monitor CBC Diastolic heart failure Acute and chronic respiratory failure with hypoxia: CXR showed cardiomegaly with reticular interstitial opacities suggestive of pulmonary edema versus an interstitial pneumonitis. Cardiology and pulm on board Continue Oxygen supplement titrate from 5L to 2L to keep saturation around 92 as per pulm Continue IV Rocephin and Doxycycline for now Will need outpatient pulmonary function test Nephrology recommended to continue lasix 60mg IV BID Will repeat CXR in am Continue monitor BMP while on IV lasix Anxiety Mostly due to her health/illness Prozac increased to 20mg daily Ativan increased to 1 mg prn while in the hospital Anxiety improved Psych on board Acute renal failure Possible related to anemia/hypotension and diuretic Creatinine worsening to 3.5 Renal u/s showed normal kidney Nephrology on board recommended to continue lasix to 60mg BID Continue monitor BMP Splenomegaly U/S showed splenomegaly measuring 19 cm in length. This has progressed in the interval. Need to monitor Hypokalemia K stable K replaced Hx Hepatitis C Cirrhosis Gastro on board recommended OP hepatology follow up with imaging and potential IR transjugular liver biopsy with portal pressure/right heart pressure Follow a Low sodium DVT px on SCD due to anemia Disposition Will discharge home once medically stable Admission and Anticipated Discharge Date Admission Date: April 04, 2021 Subjective Pt was seen and examined for follow of anemia, SOB and weakness Lying in bed with no distress resgtin Pt was not too happy because she is on heart healthy diet Pt said that she feels much better She said that she can breath better and she was able to clean herself without any help She is very anxious to go home. She said that she would go home tomorrow if her creatinine trends down Denies any chest pain, palpitation, dizziness and fever Review of Systems Review of Systems: All systems reviewed & are unremarkable except as noted in Subjective Physical Exam Physical Exam: General- No acute distress Head- atraumatic Eyes- PERRL, EOMI, ENT- Poor dentition Neck- supple, no JVD Lungs- Diminished BS Heart- regular rhythm; no murmur Abdomen- normal bowel sounds, soft, nontender Extremities- no calf tenderness, Neuro- alert, oriented x 3; PERRL, EOMI; no facial palsy; no dysarthria Skin- warm & dry Results & Data Results & Data ([facility]) Vital Signs (Past 12 Hours) Vital Signs Temp Pulse Pulse Resp BP BP Pulse Ox 04/08/21 17:00 109/63 04/08/21 16:00 80 04/08/21 15:30 37.3 C 81 20 87/55 L 95 04/08/21 11:51 36.8 C 80 21 111/70 95 04/08/21 09:00 72 04/08/21 07:03 36.9 C 74 19 107/66 99
[2021-04-09] MEDS: LORazepam 1 MG TAB PO PRN ×3 (01:19→13:16)
[2021-04-09] MEDS: DOXYCYCLINE HYCLATE 100 MG in DEXTROSE 5% 100 ML IV SCH (05:39)
[2021-04-09 07:29] LABS: Hematocrit (blood only) 27.2 % (37-47); Hemoglobin 8.9 g/dL (12.0-16.0); Mean Corpuscular Hemoglobin 34.4 pg (25-34); Mean Corpuscular Hgb Conc 32.7 g/dL (32-36); Mean Platelet Volume 10.6 fL (7.4-10.4); Platelet Count 158 K/uL (130-400); RDW Coefficient of Variation 16.5 % (11.5-14.5); RDW Standard Deviation 62.5 fL (36.4-46.3); Red Blood Count 2.59 M/uL (4.2-5.4); White Blood Count 6.01 K/uL (4.8-10.8)
[2021-04-09] MEDS: FUROSEMIDE 60 MG in SYRINGE 0 ML IV SCH (07:48)
[2021-04-09] MEDS: cefTRIAXone SODIUM 2,000 MG in DEXTROSE 5% 50 ML IV SCH (07:48)
[2021-04-09] MEDS: BUPRENORPHINE/NALOXONE 8/2 MG TAB SL SCH (07:48)
[2021-04-09 07:49] LABS: BUN Creatinine Ratio 10.2 (10-20); Calcium 8.4 mg/dl (8.5-10.1); Creatinine Clr Calc Pharmacy 24.4 ml/min; Est GFR (African American) 19.4 ml/min; Est GFR (Non-African American) 16.7 ml/min; Potassium 4.4 mmol/L (3.5-5.1)
[2021-04-09] MEDS: FOLIC ACID 1 MG TAB PO SCH (07:49)
[2021-04-09] MEDS: NICOTINE 7 MG/24 HR TDSY TD SCH (07:49)
[2021-04-09] MEDS: FLUoxetine HCL 20 MG CAP PO SCH (07:50)
[2021-04-09] MEDS: METOPROLOL SUCC 25MG EXT REL TAB PO SCH (07:50)
[2021-04-09] MEDS: POTASSIUM CHLORIDE 10 MEQ TABCR PO SCH (08:45)
--- NOTE | 2021-04-09 09:56 | Nephrology Progress Note ---
Date of Service April 09, 2021 Assessment & Plan (1) KENIA (acute kidney injury): Patient with acute kidney injury likely due to ischemic ATN in setting of infection. Baseline creatinine of 1. Creatinine downtrending 3.3 from 3.5 yesterday. Avoid nephrotoxins. Monitor input output and daily standing weight. We will continue to monitor renal function with daily BMP while in-house. -From renal standpoint patient can be discharged with BMP and renal follow-up next week (2) Acute and chronic respiratory failure with hypoxia: Patient is improving. Switch to home Lasix 80 mg p.o. daily. Monitor input output. Titrate FiO2 to maintain sats above 90. Admission and Anticipated Discharge Date Admission Date: April 04, 2021 Subjective Patient seen in follow-up for acute kidney injury. She feels better today. She is at baseline oxygenation. No leg swelling. She is making urine. Creatinine downtrending to 3.3 from 3.5 Review of Systems Review of Systems: All systems reviewed & are unremarkable except as noted in HPI & below Physical Exam Physical Exam: General exam: Appears comfortable, no acute distress, on oxygen nasal cannula HEENT: Pupils are equal and reactive to light Neck: No JVD, neck is supple trachea is midline Respiratory system: Clear breath sounds bilaterally. Gastrointestinal: Abdomen is soft, non distended, non tender, bowel sounds are present CVS: Regular rate and rhythm. No murmurs, rubs or gallops Musculoskeletal: No joint or muscle tenderness Extremities: Non tender, no edema, peripheral pulses are present Neuro: Oriented, no tremors, no focal neurological deficits Skin: No rashes Results & Data ([facility]) Vital Signs (Past 12 Hours) Vital Signs Temp Pulse Pulse Resp BP BP Pulse Ox 04/09/21 08:00 78 04/09/21 07:38 36.7 C 76 19 114/78 94 04/09/21 04:04 36.9 C 67 18 89/56 L 99 04/09/21 00:00 70 04/08/21 23:39 73 19 99/56 L 100 Laboratory Results 04/09/21 06:36 04/09/21 06:36 WBC 6.01 RBC 2.59 L MCV 105.0 H MCH 34.4 H MCHC 32.7 RDW Std Deviation 62.5 H RDW Coeff of Christine 16.5 H Plt Count 158 MPV 10.6 H
--- NOTE | 2021-04-09 13:23 | Hospitalist Progress Note ---
Date of Service April 09, 2021 Assessment & Plan (1) Symptomatic anemia: Present on admission with worsening SOB, fatigue and weakness Hgb dropped to 6.5 Case discussed with hem/onc that recommended work up for hemolysis anemia LDH and reticulocytes count midly elevated Peripheral smear showed Red cells appear mildly macrocytic and target cells are noted. Mild rouleaux formation is noted. No schistocytes Current abx screen negative Haptoglobin pending Result discussed with Dr. Oneil that recommended to transfused warm PRBC S/P 2 unit PRBC during the hospital coarse Hgb 8.9 today Haptoglobin normal Follow up with hematology Please check CBC in 1 week Diastolic heart failure Acute and chronic respiratory failure with hypoxia: CXR showed cardiomegaly with reticular interstitial opacities suggestive of pulmonary edema versus an interstitial pneumonitis. Repeat CXR today Cardiology and pulm on board Continue Oxygen supplement titrate from 5L to 2L to keep saturation around 92 as per pulm Continue IV Rocephin and Doxycycline for now Will complete the course of doxycycline on discharge Will need outpatient pulmonary function test Pt has been using 5L oxygen NC continuously at home 2 step exercise done and pt requires oxygen with 2L NC with ambulation only Nephrology on board recommended to continue home dose Lasix 80mg BID Anxiety Mostly due to her health/illness Prozac increased to 20mg daily Ativan increased to 1 mg prn while in the hospital Anxiety improved Psych on board Will need to follow up with psych outpatient Acute renal failure Possible related to anemia/hypotension and diuretic Creatinine 3.3 today Renal u/s showed normal kidney Pt wants to go home today Nephrology on board recommended to discharge with home her dose Lasix 80mg BID Check BMP in 1 week Follow up with nephrology outpatient Splenomegaly U/S showed splenomegaly measuring 19 cm in length. This has progressed in the interval. Asymptomatic Need to monitor Hypokalemia K 4.4 today K stable Hx Hepatitis C Cirrhosis Gastro on board recommended OP hepatology follow up with imaging and potential IR transjugular liver biopsy with portal pressure/right heart pressure Follow a Low sodium DVT px on SCD due to anemia Disposition Will discharge home today Admission and Anticipated Discharge Date Admission Date: April 04, 2021 Subjective Pt was seen and examined for follow of anemia, SOB and weakness Lying in bed with no distress resting comfortable Pt said that she feels a lot better today She is very anxious to go home She has 2 step exercise done. She does not require any oxygen at rest and 2L NC with ambulation Denies any chest pain, palpitation, dizziness and fever Review of Systems Review of Systems: All systems reviewed & are unremarkable except as noted in Subjective Physical Exam Physical Exam: General- No acute distress Head- atraumatic Eyes- PERRL, EOMI, ENT- Poor dentition Neck- supple, no JVD Lungs- No wheezing, No crackle Heart- regular rhythm; no murmur Abdomen- normal bowel sounds, soft, nontender Extremities- no calf tenderness, Neuro- alert, oriented x 3; PERRL, EOMI; no facial palsy; no dysarthria Skin- warm & dry Results & Data Results & Data ([facility]) Vital Signs (Past 12 Hours) Vital Signs Temp Pulse Pulse Pulse Pulse Pulse Pulse 04/09/21 12:59 37.1 C 76 76 04/09/21 12:03 96 H 92 H 85 04/09/21 11:56 37.1 C 76 04/09/21 08:00 78 04/09/21 07:38 36.7 C 76 04/09/21 04:04 36.9 C 67 Pulse Resp Resp Resp Resp Resp BP 04/09/21 12:59 20 135/90 04/09/21 12:03 77 26 H 27 H 24 18 04/09/21 11:56 20 135/90 04/09/21 08:00 04/09/21 07:38 19 114/78 04/09/21 04:04 18 89/56 L BP Pulse Ox Pulse Ox Pulse Ox Pulse Ox Pulse Ox 04/09/21 12:59 99/56 L 96 04/09/21 12:03 94 85 L 94 93 04/09/21 11:56 96 04/09/21 08:00 04/09/21 07:38 94 04/09/21 04:04 99
--- NOTE | 2021-04-09 14:59 | XRay Report ---
XR chest 1V portable CLINICAL HISTORY: f/u COMPARISON STUDY: Chest radiograph April 04, 2021. FINDINGS: Lung volumes are normal. There is no pneumothorax or pleural effusion. Mild interstitial th ickening persists. There are mild bibasilar opacities, predominantly linear in configuration. Cardiom egaly is unchanged. IMPRESSION: 1. Interstitial thickening and bibasilar opacities. The findings may reflect an infectious process or mild pulmonary edema. 2. Stable cardiomegaly. ACT 112: Negative or not required by law. Electronically signed by: Vitor Rodriguez M.D. 04/09/2021 2:58 PM
[2021-04-10 13:38] LABS: Anti Mitochondrial Antibody NEGATIVE (NEGATIVE); Anti Nuclear Antibody Screen NEGATIVE (NEGATIVE); Hepatitis A Antibody IgM NON-REACTIVE (NON-REACTIVE); Hepatitis B Core Antibody IgM NON-REACTIVE (NON-REACTIVE); Hepatitis C Vira RNA (Log) PCR <1.18 NOT DETECTED Log IU/mL (NOT DETECTED); Hepatitis C Viral RNA by PCR <15 NOT DETECTED IU/mL (NOT DETECTED); Smooth Muscle Antibody POSITIVE (NEGATIVE)
--- NOTE | 2021-04-11 09:29 | Discharge Summary ---
Date of Service April 09, 2021 Admission HPI Per Admitting Provider GENERAL: The patient is of moderate build, not in acute distress. VITAL SIGNS: Temperature 37.5, pulse 80, respiratory rate 16, blood pressure 101/49, oxygen 100% on 5 liters. HEENT: Pupils equal, round, reactive to light. Oral mucosa moist. NECK: No JVD, no neck masses. CARDIOVASCULAR: S1, S2 heard, regular rate and rhythm, no murmur, no gallop. RESPIRATORY SYSTEM: Normal AP diameter. No accessory muscle use. Mild bibasilar crackles. No wheezing. ABDOMEN: Soft, bowel sounds present, nontender. No distention. CENTRAL NERVOUS SYSTEM: Cranial nerves II-XII are grossly intact. Nonfocal. EXTREMITIES: No edema, no erythema. Admission Exam Per Admitting Provider GENERAL: The patient is of moderate build, not in acute distress. VITAL SIGNS: Temperature 37.5, pulse 80, respiratory rate 16, blood pressure 101/49, oxygen 100% on 5 liters. HEENT: Pupils equal, round, reactive to light. Oral mucosa moist. NECK: No JVD, no neck masses. CARDIOVASCULAR: S1, S2 heard, regular rate and rhythm, no murmur, no gallop. RESPIRATORY SYSTEM: Normal AP diameter. No accessory muscle use. Mild bibasilar crackles. No wheezing. ABDOMEN: Soft, bowel sounds present, nontender. No distention. CENTRAL NERVOUS SYSTEM: Cranial nerves II-XII are grossly intact. Nonfocal. EXTREMITIES: No edema, no erythema. Principal Diagnosis Symptomatic anemia: Diastolic heart failure Acute and chronic respiratory failure with hypoxia: Anxiety Acute renal failure Splenomegaly Hypokalemia Hx Hepatitis Discharge Exam General- No acute distress Head- atraumatic Eyes- PERRL, EOMI, ENT- Poor dentition Neck- supple, no JVD Lungs- No wheezing, No crackle Heart- regular rhythm; no murmur Abdomen- normal bowel sounds, soft, nontender Extremities- no calf tenderness, Neuro- alert, oriented x 3; PERRL, EOMI; no facial palsy; no dysarthria Skin- warm & dry Discharge Data Allergies Allergy/AdvReac Type Severity Reaction Status Date / Time green pepper Allergy Severe Anaphylaxis Verified 04/04/21 23:16 mushroom Allergy Severe ANAPHYLAXIS Verified 04/04/21 15:58 onion Allergy Severe ANAPHYLAXIS Verified 04/04/21 15:58 tramadol Allergy Mild RASH AND Verified 04/04/21 15:58 ITCHING ketorolac Allergy Unknown RASH Verified 04/04/21 15:58 Consultations 04/04/21 20:05 ED Decision to Admit Stat 04/05/21 08:00 Consult Cardiology Routine Consult Gastroenterology Routine Consult Hematology Routine Consult Pulmonology Routine 04/05/21 11:15 Consult Psychiatry Routine 04/06/21 11:08 Consult Nephrology Routine Ordered Studies 04/07/21 14:00 US renal/blad retro comp Routine XR chest 1V portable CLINICAL HISTORY: f/u COMPARISON STUDY: Chest radiograph April 04, 2021. FINDINGS: Lung volumes are normal. There is no pneumothorax or pleural effusion. Mild interstitial thickening persists. There are mild bibasilar opacities, predominantly linear in configuration. Cardiomegaly is unchanged. IMPRESSION: 1. Interstitial thickening and bibasilar opacities. The findings may reflect an infectious process or mild pulmonary edema. 2. Stable cardiomegaly. ACT 112: Negative or not required by law. Electronically signed by: Vitor Rodriguez M.D. 04/09/2021 2:58 PM Dictated: 04/09/21 1457Transcribed: 04/09/211456 RENAL ULTRASOUND HISTORY: elevated creatinine COMPARISON: Abdomen and pelvis CT 07/30/2020. FINDINGS: Right kidney: 11.9 cm. No hydronephrosis. Normal corticomedullary differentiation and cortical thickness. Left kidney: 11.9 cm. No hydronephrosis. Normal corticomedullary differentiation and cortical thickness. Bladder: Mild bladder wall thickening. Only the left ureteral jet was identified this time. Miscellaneous: The spleen is enlarged measuring 19 cm in length. This has progressed in the interval. IMPRESSION: 1. Normal kidneys. 2. Mild bladder wall thickening. 3. Splenomegaly measuring 19 cm in length. This has progressed in the interval. ACT 112: Negative or not required by law. Electronically signed by: Jose L Gold M.D. 04/07/2021 2:38 PM Dictated: 04/07/21 1437Transcribed: 04/07/21 1437 XR chest 1V portable HISTORY: 41 years-old Female Dyspnea acute shortness of breath COMPARISON: Chest radiograph 08/02/2020 TECHNIQUE: Portable AP view of the chest FINDINGS: Cardiac silhouette is enlarged. Pulmonary vascular congestion with mild reticular interstitial opacities. No pneumothorax or large pleural effusion. No lobar airspace consolidation. The bones appear grossly intact. IMPRESSION: Cardiomegaly with reticular interstitial opacities suggestive of pulmonary edema versus an interstitial pneumonitis. ACT 112: Negative or not required by law. The above report was generated using voice recognition software. It may contain grammatical, syntax or spelling errors. Electronically signed by: Abe Quan M.D. 04/04/2021 3:21 PM Dictated: 04/04/21 1520Transcribed: 04/04/21 1520 Hospital Course (1) Symptomatic anemia: Present on admission with worsening SOB, fatigue and weakness Hgb dropped to 6.5 Case discussed with hem/onc that recommended work up for hemolysis anemia LDH and reticulocytes count midly elevated Peripheral smear showed Red cells appear mildly macrocytic and target cells are noted. Mild rouleaux formation is noted. No schistocytes Current abx screen negative Haptoglobin pending Result discussed with Dr. Oneil that recommended to transfused warm PRBC S/P 2 unit PRBC during the hospital coarse Hgb 8.9 today Haptoglobin normal Follow up with hematology Please check CBC in 1 week Diastolic heart failure Acute and chronic respiratory failure with hypoxia: CXR showed cardiomegaly with reticular interstitial opacities suggestive of pulmonary edema versus an interstitial pneumonitis. Repeat CXR today Cardiology and pulm on board Continue Oxygen supplement titrate from 5L to 2L to keep saturation around 92 as per pulm Continue IV Rocephin and Doxycycline for now Will complete the course of doxycycline on discharge Will need outpatient pulmonary function test Pt has been using 5L oxygen NC continuously at home 2 step exercise done and pt requires oxygen with 2L NC with ambulation only Nephrology on board recommended to continue home dose Lasix 80mg BID Anxiety Mostly due to her health/illness Prozac increased to 20mg daily Ativan increased to 1 mg prn while in the hospital Anxiety improved Psych on board Will need to follow up with psych outpatient Acute renal failure Possible related to anemia/hypotension and diuretic Creatinine 3.3 today Renal u/s showed normal kidney Pt wants to go home today Nephrology on board recommended to discharge with home her dose Lasix 80mg BID Check BMP in 1 week Follow up with nephrology outpatient Splenomegaly U/S showed splenomegaly measuring 19 cm in length. This has progressed in the interval. Asymptomatic Need to monitor Hypokalemia K 4.4 today K stable Hx Hepatitis C Cirrhosis Gastro on board recommended OP hepatology follow up with imaging and potential IR transjugular liver biopsy with portal pressure/right heart pressure Follow a Low sodium DVT px on SCD due to anemia Disposition Will discharge home today Total Time Total Time Spent Total Time Spent (In Minutes): 35 minutes Total Time Includes: Examination of the Patient, Discharge Planning, Medication Reconciliation, Communication With Other Providers and Other Discharge Plan Discharge Items Patient Disposition: Home - Self-Care Reason For Visit: SOB Discharge Diagnosis: Symptomatic anemia: Diastolic heart failure Acute and chronic respiratory failure with hypoxia: Anxiety Acute renal failure Splenomegaly Hypokalemia Hx Hepatitis C Activity: Resume your previous activity Non-emergency contact: Primary Care Provider Call non-emergency contact if: you have any medication questions Follow-up/Referrals: Andre Siegel MD [Primary Care Provider] - Diet: Heart Healthy Addtl Attending Provider Instructions: Follow up with your primary care provider within 1 week ( please call to schedule for the appointment) Follow up with nephrology in 2 -4 weeks to continue monitor your kidney ( please call to schedule for the appointment) Follow up with your hematology provider to manage your low hemoglobin ( please call to schedule for the appointment) ) Follow up with the gastroenterology for the liver (( please call to schedule for the appointment) Follow up with psychiatry to manage your anxiety (( please call to schedule for the appointment) Check BMP in 1 week to monitor your electrolytes and kidney function Check CBC in 1 week to monitor your hemoglobin Continue oxygen with 2 Liter nasal canula with ambulation Fall precaution Counseling on smoking cessation Pending Studies at Discharge: No Stand-Alone Forms: My [facility] [employer], Smoking Cessation Medications and DC Order Prescriptions: New fluoxetine 20 mg Capsule 20 mg PO DAILY 30 Days Qty: 30 RF: 0 Continued albuterol sulfate 90 mcg/actuation Hfa Aerosol Inhaler 2 puff INHALATION Q4 PRN (Reason: Shortness Of Breath Or Wheezing) RF: 0 buprenorphine-naloxone 8-2 mg tablet, sublingual 1 tab SUBLINGUAL DAILY RF: 0 folic acid 1 mg tablet 1 mg PO BID RF: 0 metoprolol succinate 25 mg tablet extended release 24 hr 25 mg PO DAILY RF: 0 potassium chloride 10 mEq capsule, extended release 10 meq PO DAILY RF: 0 furosemide 80 mg tablet 80 mg PO BID RF: 0 Discontinued fluoxetine 10 mg capsule 10 mg PO DAILY RF: 0 Discharge Orders: Discharge Order (Routine); Ordered 04/09/21 Ordered By: Alexei Rivas Admission Data Admit Date/Time: 04/04/21 21:52 Attending Provider: Alexei Rivas Admit Provider: Tom Carrillo Primary Care Provider: Andre Siegel Other Providers: Tom Carrillo ; Wilmer Reynoso ; David Sharma ; Brice Connelly ; Abdulaziz Babb ; Richard Powers ; Lb Stephens ; Teresa Peters ; Niki Sebastian ; Madison Rojas ; Cm uY ; Alyce Cintron ; Zonia Kim ; Skinny Rodriguez ; Barb Hemphill ; Jerald Henrandez ; Irlanda Woods ; Madison Narayan ; Franko Snow ; Alexandria Persaud ; Katarzyna Yadav ; Jaclyn Summers ; Christy Valle ; Maurilio Garcia ; Sal Oneil ; Moy Mcdonough ; Demetris Sanchez ; Dianne Yanez ; Dr Raciel ; Joi Sunshine ; Dirk Reardon ; Gil Copeland Other Interventions: Discharge Summary Assessment (RN) Last Done: 04/09/21 12:59
[2021-04-11 09:41] LABS: Smooth Muscle Ab Titer 1:40 titer (<1:20)
== END 2021-04-09 15:10 | disposition home or self-care (01) | DRG 808 ==
LOC: ED 14:25 → 2E 21:52 → SUATTDRO 21:52 → 2E 22:38

== ENCOUNTER 2021-04-18 06:42 | Inpatient (IN) ==
[2021-04-18] MEDS ORDERED: ONDANSETRON INJ 2 MG/ML 2 ML VIAL IV STA (06:51)
[2021-04-18] MEDS ORDERED: LORazepam 1 MG/2 ML VIAL IV STA (06:51)
--- NOTE | 2021-04-18 06:57 | Emergency Department Note ---
Impression & Plan Chest pain, Hypoxia, Anemia ED Provider Note NAME: ELYSSA MURRAY AGE: 41 SEX: F : 1980 ARRIVES VIA: Ambulance INFORMANT: Patient, ED PROVIDER(S): Neo Murry DO CHIEF COMPLAINT: Chest pain HPI: The patient is a 41-year-old female who presented to the emergency department with multiple complaints. Patient arrived via ambulance from her home. She was experiencing chest pain since last evening. She states that around midnight she started noticing episodes of nausea as well as vomiting. She is also had diarrhea. The patient states she has had very severe shortness of breath as well as chest discomfort. She denies having any cough. She does continue to smoke. She has oxygen at home that she has been using ever since a very severe episode of COVID-19 infection requiring multiple hospitalizations as well as intubation. The patient called 911 this morning because of recurrence of her discomfort. She denies having any lower extremity swelling. She does take Lasix. She was diagnosed with heart failure previously but denies ever having a previous heart catheterization. The patient states her symptoms were moderate to severe. She was placed on oxygen by the prehospital personnel. She denies having any cough at this time. She did not have a fever. ROS: See above HPI for pertinent positives & negatives. A total of 10 systems reviewed and were otherwise negative. PAST MEDICAL HISTORY: See Below PAST SURGICAL HISTORY: See Below FAMILY HISTORY: See Below SOCIAL HISTORY: See Below HOME MEDICATIONS: See Below ALLERGIES: See Below VITALS: See Below PHYSICAL EXAMINATION: GENERAL: The patient is awake and alert. She is somewhat anxious appearing. EYES: The conjunctivae are clear. The pupils are round and reactive. EARS, NOSE, MOUTH AND THROAT: The nose is without any evidence of any deformity. NECK: The neck is nontender and supple. RESPIRATORY: Normal respiratory effort is noted there is no evidence of wheezing rhonchi or rales CARDIOVASCULAR: Regular rate and rhythm noted there no murmurs rubs or gallops normal S1 normal S2. GASTROINTESTINAL: The abdomen is soft and mildly distended. There is diffuse tenderness to palpation but no guarding rigidity. MUSCULOSKELETAL/EXTREMITIES: There is no evidence of gross deformity full range of motion is noted in the hips and shoulders. SKIN: There is no obvious evidence of any rash. There are no petechiae, pallor or cyanosis noted. NEUROLOGIC: Patient is awake alert and oriented x3 strength is symmetric pat ellar reflexes are 2+ bilaterally MEDICAL DECISION MAKING: The patient is a 41-year-old female who presented to the emergency department for an evaluation of difficulty breathing and chest pain. The patient has a history of Covid pneumonia but also has a history of pulmonary edema. The patient was treated with supplemental oxygen in the emergency department. She was reevaluated multiple times. I discussed the patient's laboratory and radiographic studies with her. Because of her findings I discussed her case with the [facility]call [facility] as well. They have agreed to evaluate the patient in the emergency department for further management and disposition. Triage Nursing notes reviewed. Prior medical records reviewed Vital Signs: reviewed and remarkable for hypoxia. Differential diagnosis: Cardiac ischemia, aortic dissection, pulmonary embolism, pneumothorax, pneumonia, pericarditis, myocarditis, esophageal rupture, GERD, cholecystitis, pancreatitis, musculoskeletal, as well as other pathologies. ER treatment provided: See below Diagnostics interpreted by me: ECG: EKG was obtained in the emergency department. My interpretation is normal sinus rhythm at 84 bpm. There is no ectopy. Anterior T wave inversions were noted. This was compared to a tracing from April 042020. No significant changes were noted. Cardiac Monitoring: An order was placed for continuous cardiac monitoring. The monitor shows a rate of 75 bpm with sinus rhythm. Laboratory studies: As stated above and show below. Imaging studies: See below Consultation(s): [id number]: I discussed this case with Rajni who is on for the [facility]. They will evaluate the patient in the emergency department for further management and disposition. Past Med/Surg History Medical History Acute hypokalemia Heart failure with preserved ejection fraction Hepatomegaly Hypomagnesemia Pleural effusion on left Pleural effusion on right Proteinuria Pulmonary edema Transaminitis Family History Mother Lupus (systemic lupus erythematosus) Social History Smoking Status: Current every day smoker Tobacco Type: Cigarettes Cigarettes Per Day: 2; Hx Alcohol Use: Yes Alcohol type: beer, wine and hard liquor Hx Substance Use: Yes Last Used Substance: Days (ago) Last Used Substance Other:: 04/03/2021 medical marijuana Substance Use Type Other:: former pain killers. Is on Saboxen and medical marijuana Preferred Language: Upper Sorbian Communication Ability: Effective Oil Recovery Unit Operator Required: No Beliefs That Will Affect Care: None Current Living Situation: Family Current Living Situation Comment: cori and 2 kids Other Information That Helps Us Care for You: No Feels Safe at Home: Yes Safety Concerns: Feels Safe At This Time Assistive Devices: Cane, Oxygen - Continuous and Walker Allergies Allergies Allergy/AdvReac Type Severity Reaction Status Date / Time green pepper Allergy Severe Anaphylaxis Verified 04/18/21 08:12 mushroom Allergy Severe ANAPHYLAXIS Verified 04/18/21 08:12 onion Allergy Severe ANAPHYLAXIS Verified 04/18/21 08:12 tramadol Allergy Mild RASH AND Verified 04/18/21 08:12 ITCHING ketorolac Allergy Unknown RASH Verified 04/18/21 08:12 Home Meds Home Medications Medication Instructions Recorded Confirmed albuterol sulfate 2 puff INHALATION Q4 PRN 04/24/20 04/18/21 buprenorphine-naloxone 1 tab SUBLINGUAL DAILY 04/24/20 04/18/21 folic acid 1 mg PO BID 07/30/20 04/18/21 metoprolol succinate 25 mg PO DAILY 07/30/20 04/18/21 furosemide 80 mg PO BID 04/04/21 04/18/21 potassium chloride 10 meq PO DAILY 04/04/21 04/18/21 buspirone 5 mg PO BID PRN 04/18/21 04/18/21 calcium carbonate-vitamin D3 1 tab PO DAILY 04/18/21 04/18/21 [Calcium 600 + D(3)] magnesium oxide 400 mg PO DAILY 04/18/21 04/18/21 Previous Rx's Medication Instructions Recorded fluoxetine 20 mg PO DAILY 30 Days #30 cap 04/09/21 Results & Data (ED) Vital Signs Vital Signs - 24 hr 04/18/21 06:48 04/18/21 06:52 04/18/21 07:02 Temperature 37.2 C Temperature Source Oral Pulse Rate 81 80 77 Pulse Rate from SpO2 Sensor 80 77 Respiratory Rate 16 15 13 Respiratory Effort / Characteristics Non-Labored Spontaneous Respiratory Depth Normal Blood Pressure 116/81 Blood Pressure Mean 92 Pulse Oximetry 99 95 94 Oxygen Delivery Method Room Air Nasal Cannula Nasal Cannula Oxygen Flow Rate 3 3 Sepsis Recent Fever Within 48 Hours No Sepsis New/Unexplained Change in Mental Status N/A Sepsis Action Taken by Nursing No Action Required 04/18/21 07:09 04/18/21 07:30 04/18/21 08:00 Temperature Temperature Source Pulse Rate 86 75 Pulse Rate from SpO2 Sensor 76 Respiratory Rate 21 17 Respiratory Effort / Characteristics Respiratory Depth Blood Pressure Blood Pressure Mean Pulse Oximetry 99 Oxygen Delivery Method Room Air Nasal Cannula Oxygen Flow Rate 3 Sepsis Recent Fever Within 48 Hours Sepsis New/Unexplained Change in Mental Status Sepsis Action Taken by Nursing 04/18/21 08:30 04/18/21 09:00 04/18/21 09:30 Temperature Temperature Source Pulse Rate 70 75 82 Pulse Rate from SpO2 Sensor 70 71 83 Respiratory Rate 15 13 20 Respiratory Effort / Characteristics Respiratory Depth Blood Pressure Blood Pressure Mean Pulse Oximetry 98 96 96 Oxygen Delivery Method Nasal Cannula Nasal Cannula Oxygen Flow Rate 3 3 Sepsis Recent Fever Within 48 Hours Sepsis New/Unexplained Change in Mental Status Sepsis Action Taken by Nursing 04/18/21 10:19 04/18/21 10:30 Temperature Temperature Source Pulse Rate 87 Pulse Rate from SpO2 Sensor 85 87 Respiratory Rate 19 Respiratory Effort / Characteristics Respiratory Depth Blood Pressure 119/76 Blood Pressure Mean 90 Pulse Oximetry 100 100 Oxygen Delivery Method Oxygen Flow Rate Sepsis Recent Fever Within 48 Hours Sepsis New/Unexplained Change in Mental Status Sepsis Action Taken by [facility] Medications Current Medication List: was personally reviewed by me Laboratory Data Attestation: I reviewed the patient's lab results. Result diagrams: 04/18/21 07:55 04/18/21 07:55 Lab Results 04/18/21 04/18/21 04/18/21 Range/Units 07:55 07:55 07:55 WBC 12.10 H (4.8-10.8) K/uL RBC 2.53 L (4.2-5.4) M/uL Hgb 8.7 L (12.0-16.0) g/dL Hct 25.6 L (37-47) % MCV 101.2 H (80-100) fL MCH 34.4 H (25-34) pg MCHC 34.0 (32-36) g/dL RDW Std Deviation 56.2 H (36.4-46.3) fL RDW Coeff of Christine 15.4 H (11.5-14.5) % Plt Count 230 (130-400) K/uL MPV 10.6 H (7.4-10.4) fL Immature Gran % (Auto) 0.2 % Neut % (Auto) 84.2 % Lymph % (Auto) 8.4 % [place] % (Auto) 5.3 % Eos % (Auto) 1.3 % Baso % (Auto) 0.6 % Neut # (Auto) 10.18 H (1.4-6.5) K/uL Lymph # (Auto) 1.02 L (1.2-3.4) K/uL [place] # (Auto) 0.64 H (0.11-0.59) K/uL Eos # (Auto) 0.16 (0-0.5) K/uL Baso # (Auto) 0.07 (0-0.2) K/uL Immature Gran # (Auto) 0.03 H (0.00-0.02) K/uL PT 13.3 H (9.0-12.0) Seconds INR 1.3 H (0.9-1.1) APTT 29.1 (21.0-31.0) Seconds PTT Ratio 1.1 Sodium 139 (136-145) mmol/L Potassium 3.9 (3.5-5.1) mmol/L Chloride 105 (98-107) mmol/L Carbon Dioxide 24 (21-32) mmol/L Anion Gap 10.0 (3-11) BUN 20 H (7-18) mg/dl Creatinine 2.24 H (0.6-1.2) mg/dl Est Cr Clr Drug Dosing 35.2 ml/min Est GFR ( Amer) 31.0 ml/min Est GFR (Non-Af Amer) 26.7 ml/min BUN/Creatinine Ratio 9.1 L (10-20) Glucose 98 (70-99) mg/dl Calcium 7.5 L (8.5-10.1) mg/dl Total Bilirubin 1.9 H (0.2-1) mg/dl AST 77 H (15-37) U/L ALT 22 (12-78) U/L Alkaline Phosphatase 140 H (45-117) U/L Troponin I < 0.015 (0-0.045) ng/ml NT-Pro-B Natriuret Pep 864 H (0-450) pg/ml Total Protein 8.1 (6.4-8.2) gm/dl Albumin 2.4 L (3.4-5.0) gm/dl Globulin 5.7 H (2.5-4.0) gm/dl Albumin/Globulin Ratio 0.4 L (0.9-2) Lipase 181 (73-393) U/L TSH (0.300-4.500) uIu/ml Free T4 (0.8-1.6) ng/dl HCG, Qual (Negative) Specimen Hemolysis COVID-19 Eval Order SARS-CoV-2 (PCR) (Negative) 04/18/21 04/18/21 04/18/21 Range/Units 07:55 07:55 09:25 WBC (4.8-10.8) K/uL RBC (4.2-5.4) M/uL Hgb (12.0-16.0) g/dL Hct (37-47) % MCV (80-100) fL MCH (25-34) pg MCHC (32-36) g/dL RDW Std Deviation (36.4-46.3) fL RDW Coeff of Christine (11.5-14.5) % Plt Count (130-400) K/uL MPV (7.4-10.4) fL Immature Gran % (Auto) % Neut % (Auto) % Lymph % (Auto) % [place] % (Auto) % Eos % (Auto) % Baso % (Auto) % Neut # (Auto) (1.4-6.5) K/uL Lymph # (Auto) (1.2-3.4) K/uL [place] # (Auto) (0.11-0.59) K/uL Eos # (Auto) (0-0.5) K/uL Baso # (Auto) (0-0.2) K/uL Immature Gran # (Auto) (0.00-0.02) K/uL PT (9.0-12.0) Seconds INR (0.9-1.1) APTT (21.0-31.0) Seconds PTT Ratio Sodium (136-145) mmol/L Potassium (3.5-5.1) mmol/L Chloride (98-107) mmol/L Carbon Dioxide (21-32) mmol/L Anion Gap (3-11) BUN (7-18) mg/dl Creatinine (0.6-1.2) mg/dl Est Cr Clr Drug Dosing ml/min Est GFR ( Amer) ml/min Est GFR (Non-Af Amer) ml/min BUN/Creatinine Ratio (10-20) Glucose (70-99) mg/dl Calcium (8.5-10.1) mg/dl Total Bilirubin (0.2-1) mg/dl AST (15-37) U/L ALT (12-78) U/L Alkaline Phosphatase (45-117) U/L Troponin I (0-0.045) ng/ml NT-Pro-B Natriuret Pep (0-450) pg/ml Total Protein (6.4-8.2) gm/dl Albumin (3.4-5.0) gm/dl Globulin (2.5-4.0) gm/dl Albumin/Globulin Ratio (0.9-2) Lipase (73-393) U/L TSH 15.700 H (0.300-4.500) uIu/ml Free T4 0.92 (0.8-1.6) ng/dl HCG, Qual Negative (Negative) Specimen Hemolysis COVID-19 Eval Order Cov[facility] at [facility] SARS-CoV-2 (PCR) (Negative) 04/18/21 Range/Units 09:25 WBC (4.8-10.8) K/uL RBC (4.2-5.4) M/uL Hgb (12.0-16.0) g/dL Hct (37-47) % MCV (80-100) fL MCH (25-34) pg MCHC (32-36) g/dL RDW Std Deviation (36.4-46.3) fL RDW Coeff of Christine (11.5-14.5) % Plt Count (130-400) K/uL MPV (7.4-10.4) fL Immature Gran % (Auto) % Neut % (Auto) % Lymph % (Auto) % [place] % (Auto) % Eos % (Auto) % Baso % (Auto) % Neut # (Auto) (1.4-6.5) K/uL Lymph # (Auto) (1.2-3.4) K/uL [place] # (Auto) (0.11-0.59) K/uL Eos # (Auto) (0-0.5) K/uL Baso # (Auto) (0-0.2) K/uL Immature Gran # (Auto) (0.00-0.02) K/uL PT (9.0-12.0) Seconds INR (0.9-1.1) APTT (21.0-31.0) Seconds PTT Ratio Sodium (136-145) mmol/L Potassium (3.5-5.1) mmol/L Chloride (98-107) mmol/L Carbon Dioxide (21-32) mmol/L Anion Gap (3-11) BUN (7-18) mg/dl Creatinine (0.6-1.2) mg/dl Est Cr Clr Drug Dosing ml/min Est GFR ( Amer) ml/min Est GFR (Non-Af Amer) ml/min BUN/Creatinine Ratio (10-20) Glucose (70-99) mg/dl Calcium (8.5-10.1) mg/dl Total Bilirubin (0.2-1) mg/dl AST (15-37) U/L ALT (12-78) U/L Alkaline Phosphatase (45-117) U/L Troponin I (0-0.045) ng/ml NT-Pro-B Natriuret Pep (0-450) pg/ml Total Protein (6.4-8.2) gm/dl Albumin (3.4-5.0) gm/dl Globulin (2.5-4.0) gm/dl Albumin/Globulin Ratio (0.9-2) Lipase (73-393) U/L TSH (0.300-4.500) uIu/ml Free T4 (0.8-1.6) ng/dl HCG, Qual (Negative) Specimen Hemolysis COVID-19 Eval Order SARS-CoV-2 (PCR) NEGATIVE (Negative) Administered Medications Buprenorphine/Naloxone (Buprenorphine/Naloxone 8/2 Mg Tab) 1 tab SL Q24H ALLY Stop: 05/18/21 11:44 Last Admin: 04/18/21 13:14 Dose: 1 tab Documented by: [id number] Fluoxetine HCl (Fluoxetine Hcl 20 Mg Cap) 20 mg PO DAILY ALLY Stop: 05/18/21 11:59 Last Admin: 04/18/21 12:50 Dose: 20 mg Documented by: [id number] Magnesium Oxide (Magnesium Oxide 400 Mg Tab) 400 mg PO DAILY ALLY Stop: 05/18/21 11:59 Last Admin: 04/18/21 12:50 Dose: 400 mg Documented by: [id number] Metoprolol Succinate (Metoprolol Succ 25mg Ext Rel Tab) 25 mg PO DAILY ALLY Stop: 05/18/21 11:59 Last Admin: 04/18/21 13:42 Dose: 25 mg Documented by: [id number] Multivitamins/Minerals (Calcium 600mg + Vit D 400 Iu Tab) 1 tab PO DAILY ALLY Stop: 05/18/21 11:59 Last Admin: 04/18/21 12:50 Dose: 1 tab Documented by: [id number] Saccharomyces Boulardii (Saccharomyces Boulardii 250 Mg Cap) 250 mg PO DAILY ALLY Stop: 05/18/21 10:59 Last Admin: 04/18/21 12:50 Dose: 250 mg Documented by: [id number] Discontinued Medications Furosemide (Furosemide 40 Mg/4 Ml Vial) 40 mg IV NOW STA Stop: 04/18/21 09:23 Last Admin: 04/18/21 09:53 Dose: 40 mg Documented by: [id number] Lorazepam (Ativan) 1 mg in 2 mls @ 2 mls/min IV NOW STA Stop: 04/18/21 06:52 Last Admin: 04/18/21 07:03 Dose: 2 mls/min Documented by: [id number] Lorazepam (Lorazepam 1 Mg Tab) 1 mg PO NOW STA Stop: 04/18/21 12:49 Last Admin: 04/18/21 13:11 Dose: 1 mg Documented by: [id number] Ondansetron HCl (Ondansetron Inj 2 Mg/Ml 2 Ml Vial) 4 mg IV NOW STA Stop: 04/18/21 06:52 Last Admin: 04/18/21 07:03 Dose: 4 mg Documented by: [id number] Imaging Data Radiologist's Impression: Chest X-Ray 04/18/21 06:51 SINGLE VIEW CHEST CLINICAL HISTORY: Atypical chest pain. FINDINGS: An AP, portable, upright chest radiograph is compared to study dated 04/09/2021 and correlated with chest CT dated 07/30/2020. The cardiac silhouette appears enlarged. Hazy interstitial airspace opacities are again seen throughout both lungs. No large pleural effusion or pneumothorax is identified. The bony thorax is grossly intact. IMPRESSION: Hazy interstitial airspace opacities are again seen throughout both lungs. This could represent an infectious/inflammatory pneumonitis or possibly pulmonary edema. Clinical correlation will be required. ACT 112: Negative or not required by law. Electronically signed by: Jeff Ferrera M.D. 04/18/2021 7:16 AM KUB X-Ray 04/18/21 06:51 KUB HISTORY: epigastric pain COMPARISON: MRCP 07/30/2020. FINDINGS: The bowel gas pattern is unremarkable. There are no dilated loops of small bowel to suggest an obstruction. No renal calculi. No ureteral calculi. Calcifications in the deep pelvis likely represent phleboliths. No pneumoperitoneum or pneumatosis. IMPRESSION: Unremarkable KUB. No evidence for bowel obstruction. ACT 112: Negative or not required by law. Electronically signed by: Jose L Gold M.D. 04/18/2021 7:58 AM Discharge Plan Visit Data Chief Complaint: Chest Pain Stated Complaint: CHEST PAIN/VOMITING/TROUBLE BREATHING ED Provider: Neo Murry Discharge Problem: Chest pain, Hypoxia, Anemia Patient Disposition: Admitted As Inpatient Discharge Instructions Interventions: ED Discharge Assessment Last Done: 04/18/21 11:08 Discharge Problem: Chest pain Qualifiers: Chest pain type: unspecified Qualified Code(s): R07.9 - Chest pain, unspecified Anemia Qualifiers: Anemia type: unspecified type Qualified Code(s): D64.9 - Anemia, unspecified
--- NOTE | 2021-04-18 07:18 | XRay Report ---
SINGLE VIEW CHEST CLINICAL HISTORY: Atypical chest pain. FINDINGS: An AP, portable, upright chest radiograph is compared to study dated 04/09/2021 and correlate d with chest CT dated 07/30/2020. The cardiac silhouette appears enlarged. Hazy interstitial airspace opacities are again seen throughout both lungs. No large pleural effusion or pneumothorax is identifi ed. The bony thorax is grossly intact. IMPRESSION: Hazy interstitial airspace opacities are again seen throughout both lungs. This could rep resent an infectious/inflammatory pneumonitis or possibly pulmonary edema. Clinical correlation will be required. ACT 112: Negative or not required by law. Electronically signed by: Jeff Ferrera M.D. 04/18/2021 7:16 AM
--- NOTE | 2021-04-18 08:00 | XRay Report ---
KUB HISTORY: epigastric pain COMPARISON: MRCP 07/30/2020. FINDINGS: The bowel gas pattern is unremarkable. There are no dilated loops of small bowel to suggest an obstruction. No renal calculi. No ureteral calculi. Calcifications in the deep pelvis likely rep resent phleboliths. No pneumoperitoneum or pneumatosis. IMPRESSION: Unremarkable KUB. No evidence for bowel obstruction. ACT 112: Negative or not required by law. Electronically signed by: Jose L Gold M.D. 04/18/2021 7:58 AM
[2021-04-18 08:05] LABS: Basophils # (auto) 0.07 K/uL (0-0.2); Basophils % (auto) 0.6 %; Eosinophils # (auto) 0.16 K/uL (0-0.5); Eosinophils % (auto) 1.3 %; Hematocrit (blood only) 25.6 % (37-47); Hemoglobin 8.7 g/dL (12.0-16.0); Immature Granulocytes # (auto) 0.03 K/uL (0.00-0.02); Immature Granulocytes % (auto) 0.2 %; Lymphocytes # (auto) 1.02 K/uL (1.2-3.4); Lymphocytes % (auto) 8.4 %; Mean Corpuscular Hemoglobin 34.4 pg (25-34); Mean Corpuscular Volume 101.2 fL (80-100); Mean Platelet Volume 10.6 fL (7.4-10.4); Monocytes # (auto) 0.64 K/uL (0.11-0.59); Monocytes % (auto) 5.3 %; Neutrophils # (auto) 10.18 K/uL (1.4-6.5); Neutrophils % (auto) 84.2 %; Platelet Count 230 K/uL (130-400); RDW Coefficient of Variation 15.4 % (11.5-14.5); RDW Standard Deviation 56.2 fL (36.4-46.3); Red Blood Count 2.53 M/uL (4.2-5.4)
[2021-04-18 08:24] LABS: Alanine Aminotransferase 22 U/L (12-78); Albumin Level 2.4 gm/dl (3.4-5.0); Aspartate Aminotransferase 77 U/L (15-37); BUN Creatinine Ratio 9.1 (10-20); Blood Urea Nitrogen 20 mg/dl (7-18); Calcium 7.5 mg/dl (8.5-10.1); Carbon Dioxide 24 mmol/L (21-32); Chloride 105 mmol/L (98-107); Creatinine Clr Calc Pharmacy 35.2 ml/min; Est GFR (Non-African American) 26.7 ml/min; Glucose 98 mg/dl (70-99); INR 1.3 (0.9-1.1); Lipase 181 U/L (73-393); Partial Thromboplastin Ratio 1.1; Partial Thromboplastin Time 29.1 Seconds (21.0-31.0); Potassium 3.9 mmol/L (3.5-5.1); Prothrombin Time 13.3 Seconds (9.0-12.0); Sodium 139 mmol/L (136-145)
[2021-04-18 08:28] LABS: Pregnancy Test, Serum Negative (Negative)
[2021-04-18 08:33] LABS: Albumin Globulin Ratio 0.4 (0.9-2); Alkaline Phosphatase 140 U/L (45-117); Bilirubin,Total 1.9 mg/dl (0.2-1); Globulin 5.7 gm/dl (2.5-4.0); NT Pro B Type Natriuretic Pept 864 pg/ml (0-450); Total Protein 8.1 gm/dl (6.4-8.2); Troponin I < 0.015 ng/ml (0-0.045)
[2021-04-18] MEDS ORDERED: FUROSEMIDE 40 MG/4 ML VIAL IV STA (09:22)
--- NOTE | 2021-04-18 10:03 | History & Physical Report ---
Date of Service April 18, 2021 Assessment & Plan (1) Acute and chronic respiratory failure with hypoxia: -Admit to tele for observation -Recent hospitalization from 04/05-04/09 as per HPI. -Given Lasix 40 mg IV in the ER, takes 80 mg PO BID at home. -CXR reviewed: Interstitial airspace opacities are again seen throughout both lungs. This could represent an infectious/inflammatory pneumonitis or possibly pulmonary edema. Clinical correlation will be required. -Continuous O2 monitoring, daily weights, strict I's/O's, fluid restriction with heart healthy diet -Initial troponin is negative -EKG reviewed, no signs of ST wave changes, inversions or ischemia - Continue O2 at 3L as she has O2 sats in the high 90s - Pt reports reduced smoking of down to 1-2 cigarettes daily for past month. Continue to encourage cessation -Likely anxiety playing a major role in her symptoms at this time - continue prozac, will trial hydroxyzine during hospital stay, continue buspirone. Avoid benzodiazepine in the setting of chronic respiratory failure if possible. Received 1 dose of Ativan in the ER. (2) Interstitial pneumonitis: - Ultimately would benefit from PFTs, follow with pulm as outpatient - Noted on CXR as above - Continue diuresis, monitor - Recently completed course of doxycycline on 04/11 (3) Diarrhea: - Question if this is due to recent antibiotic use? Took course of doxycycline and finished around 04/11 - has been having diarrhea x 3 days. Will check c. diff and stool cultures. - Probiotic ordered - Pt has been able to take meds po - Continue antiemetics, QTC is nearly 480, avoid zofran. (4) Diastolic CHF: -Reported -Last echo completed 08/03/2020, LVEF of 60 to 64%, right venticular cvity mildly dilated and right ventricular systolic function is mildly reduced, no LV segmental WMA, dilated IVC with reduced collapsibility indicated elevated right atrial pressure, pulmonary hypertension with pressure of >39 mmHg., normal left ventricular diastolic dysfunction, Mild mitral regurg present. Moderate tricuspid regurg is present. -Consider repeat ECHO -Repeat trop x 1. 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 -Pt without known autoimmune disease but reports mother with hx of Lupus. -Hgb 8.7, no need for transfusion currently. Transfuse if <7.5 (6) Anxiety and depression: -C/o anxiety, PTSD, fear of going to appointments. - Increased Prozac to 20 mg daily during last hospitalization( 1 week ago) - continue. - Monitor for weight gain due to prozac, annual lipid panel. Consider Effexor 37.5 mg if prozac medication fails. If neither SNRI/SSRI works, would then try Trintellix 5 mg starting dose. - Avoid benzos if possible - Cont buspirone - Start hydroxyzine prn anxiety - Pt has not followed with outpt psych before. Recommend establishing with outpt care. - Checking TSH and T4 - pt reports previous hx of being on levothyroxine approximately 8 years ago but has not been on it since. Last lab work was done 1 year ago with TSh of 0.858 Patient reports hair loss, weight gain, worsening anxiety, heart issues-- which could possibly do be due to thyroid dysfunction. Consider a thyroid ultrasounds while in hospital. (7) Transaminitis: -History of such, total bili = 1.9, AST = 77, ALT = 22, alk phos = 140 (8) Tobacco abuse: -Continue to encourage cessation, currently smokes 1 to 2 cigarettes daily (9) Obesity (BMI 30.0-34.9): -Diet and exercise encouraged -Monitor with titration up of SSRI (10) PCOS (polycystic ovarian syndrome): - Hx of such, stable, has 2 children, boys, ages 4 and 6. DVT ppx: teds CODE: Full Dispo: Admitted for observation, likely to be in the hospital x 1 day. History of Present Illness Primary Care Provider: Andre Siegel MD This is a 41-year-old female with PMHx of chronic respiratory failure with hypoxia, diastolic heart failure, liver cirrhosis, hemolytic anemia,hepatitis C virus carrier, transaminitis, hypothyroidism, polycystic ovarian syndrome, chronic tobacco use, medical marijuana use, PTSD, anxiety, depression, SHIRA who presents to the ER with diarrhea, shortness of breath and chest pain. She was recently admitted here between 04/05-04/09 where she did receive 2 units of PRBCs under the recommendation of Dr. Hoyt with oncology/hematology. Her acute on chronic respiratory failure with hypoxia and diastolic heart failure was treated with Lasix 80 mg twice daily, as well as completing a course of doxycycline for interstitial pneumonitis. Her creatinine is 2.24 today compared to previously being 3.3, she was seen by nephrology during her last hospital stay with a normal renal ultrasound. Splenomegaly was noted on ultrasound being 19 cm in length. She follows with gastroenterology and hepatology as an outpatient. Today the patient's main complaint is worsening diarrhea in the past 2 days. She complains that she has had a poor appetite has been unable to eat anything but to grapes in the past 5 days. She is drinking water and Gatorade. Admits to having nausea but no vomiting today. She denies any abdominal cramping, hematemesis, black tarry school stools or hematochezia. Her other main complaint is her continued shortness of breath and "feeling like I am going to suffocate". Patient describes a rubber bandlike pain/pressure across her chest, without radiation to her back or jaw. With exertion her O2 sat dropped to 85% on 3 L, at rest remains in the high 90s. She is taking all her medications as prescribed including her Lasix 80 mg twice daily. Patient remembers weighing 184 pounds whenever she was discharged approximately 1 week ago, but has not weighed herself since being home. Her anxiety is extremely bad today. She has always been nervous to go to the hospital/call 911, but reports that her anxiety is worsening. Of late, she is having panic attacks even prior to outpatient appointments. She was recently started on Prozac 1 month ago and the dose was increased to 20 mg daily during her last hospital stay. She was also started on buspirone as an outpatient by her PCP and feels that it works for her anxiety but that it is short-lived. Patient has not yet followed with outpatient psychiatry, let alone any of the other specialties that she was referred to after her last hospital stay. Allergies Allergy/AdvReac Type Severity Reaction Status Date / Time green pepper Allergy Severe Anaphylaxis Verified 04/18/21 08:12 mushroom Allergy Severe ANAPHYLAXIS Verified 04/18/21 08:12 onion Allergy Severe ANAPHYLAXIS Verified 04/18/21 08:12 tramadol Allergy Mild RASH AND Verified 04/18/21 08:12 ITCHING ketorolac Allergy Unknown RASH Verified 04/18/21 08:12 Home Medications Medication Instructions Recorded Confirmed Type albuterol sulfate 2 puff INHALATION Q4 PRN 04/24/20 04/18/21 History buprenorphine-naloxone 1 tab SUBLINGUAL DAILY 04/24/20 04/18/21 History folic acid 1 mg PO BID 07/30/20 04/18/21 History metoprolol succinate 25 mg PO DAILY 07/30/20 04/18/21 History furosemide 80 mg PO BID 04/04/21 04/18/21 History potassium chloride 10 meq PO DAILY 04/04/21 04/18/21 History fluoxetine 20 mg PO DAILY 30 Days #30 cap 04/09/21 04/18/21 Rx buspirone 5 mg PO BID PRN 04/18/21 04/18/21 History calcium carbonate-vitamin D3 1 tab PO DAILY 04/18/21 04/18/21 History [Calcium 600 + D(3)] magnesium oxide 400 mg PO DAILY 04/18/21 04/18/21 History Past Med/Surg History Medical History Acute hypokalemia Heart failure with preserved ejection fraction Hepatomegaly Hypomagnesemia Pleural effusion on left Pleural effusion on right Proteinuria Pulmonary edema Transaminitis Family History Mother Lupus (systemic lupus erythematosus) Social History Smoking Status: Current every day smoker Tobacco Type: Cigarettes Cigarettes Per Day: 2; Hx Alcohol Use: Yes Alcohol type: beer, wine and hard liquor Hx Substance Use: Yes Last Used Substance: Days (ago) Last Used Substance Other:: 04/03/2021 medical marijuana Substance Use Type Other:: former pain killers. 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 Cardiovascular: As per HPI, currently minimal chest pain, + tightness, no palpitations Abdomen: + As per HPI, no pain, + nausea, + diarrhea Musculoskeletal: No joint pain, calf pain, swelling Neurologic: No weakness, numbness/tingling, or balance problems Psychiatric: + Significant anxiety, + depression, + PTSD, denies suicidal or homicidal ideations Skin: No rash or itch Physical Exam Physical Exam: General: awake, alert, + anxious, obese with BMI of 31.5, appears older than stated age. Head: Normocephalic, atraumatic ENT: PERRL, EOMI, no pharyngeal exudate, mucous membranes slightly dry, poor dentition. Chest: Clear to auscultation, on 3 LPM NC, no wheezes rales or rhonchi Cardiac: Regular rate and rhythm, faint systolic murmur, no JVD, normal peripheral pulses, good capillary refill Abdominal: NABS x 4 quadrants, soft, nondistended, nontender to palpation, no rebound or guarding Extremities: Normal inspection, no peripheral edema or erythema, calfs nontender to palpation Psych: Anxious and tearful mood and affect, rapid speech at times Neuro: AAO x 3, strength intact bilaterally and rated 5/5, no motor deficits, speech is clear, no peripheral sensory deficits Results & Data Results & Data ([facility]) Vital Signs (Past 12 Hours) Vital Signs Temp Pulse Resp BP Pulse Ox 04/18/21 09:00 75 13 96 04/18/21 08:30 70 15 98 04/18/21 08:00 75 17 99 04/18/21 07:30 86 21 04/18/21 07:02 77 13 94 04/18/21 06:52 80 15 116/81 95 04/18/21 06:48 37.2 C 81 16 99 Diagnostic Findings Chest X-Ray 04/18/21 06:51 SINGLE VIEW CHEST CLINICAL HISTORY: Atypical chest pain. FINDINGS: An AP, portable, upright chest radiograph is compared to study dated 04/09/2021 and correlated with chest CT dated 07/30/2020. The cardiac silhouette appears enlarged. Hazy interstitial airspace opacities are again seen throughout both lungs. No large pleural effusion or pneumothorax is identified. The bony thorax is grossly intact. IMPRESSION: Hazy interstitial airspace opacities are again seen throughout both lungs. This could represent an infectious/inflammatory pneumonitis or possibly pulmonary edema. Clinical correlation will be required. ACT 112: Negative or not required by law. Electronically signed by: Jeff Ferrera M.D. 04/18/2021 7:16 AM KUB X-Ray 04/18/21 06:51 KUB HISTORY: epigastric pain COMPARISON: MRCP 07/30/2020. FINDINGS: The bowel gas pattern is unremarkable. There are no dilated loops of small bowel to suggest an obstruction. No renal calculi. No ureteral calculi. Calcifications in the deep pelvis likely represent phleboliths. No pneumoperitoneum or pneumatosis. IMPRESSION: Unremarkable KUB. No evidence for bowel obstruction. ACT 112: Negative or not required by law. Electronically signed by: Jose L Gold M.D. 04/18/2021 7:58 AM Code Status & VTE Plan Code Status Full code -discussed with Supervising Physician Co-Signing Physician Notes pt seen and examined 41 yo F with underlying depression and anxiety disorder , admitted with Shortness or breath , chest pain monitor in tele for evaluation of cardiac work up hx of interstitial pneumonitis , completed recent dose of Doxycycline needs out pt pulmonary follow up and formal lung function test hx of depression and anxiety disorder: cont out pt emilees Maribell Adams MD
[2021-04-18] MEDS ORDERED: ALBUTEROL HFA 8 GM INHALER INH PRN (10:50)
--- NOTE | 2021-04-18 12:12 | Electrocardiogram Report ---
Test Reason : Blood Pressure : / mmHG Vent. Rate : 084 BPM Atrial Rate : 084 BPM P-R Int : 152 ms QRS Dur : 078 ms QT Int : 390 ms P-R-T Axes : 037 015 028 degrees QTc Int : 461 ms Poor data quality, interpretation may be adversely affected Normal sinus rhythm Abnormal ECG When compared with ECG of 04-APR-2021 14:40, No significant change was found Confirmed by Vasu Donald ([id number]) on 04/18/2021 12:11:55 PM Referred By: REFERRED SELF Confirmed By:Tk Donald
[2021-04-18 12:28] LABS: Thyroid Stimulating Hormone 15.7 uIu/ml (0.300-4.500)
[2021-04-18] MEDS ORDERED: LORazepam 1 MG TAB PO STA (12:48)
[2021-04-18 12:50] LABS: T4 Free Thyroxine 0.92 ng/dl (0.8-1.6)
[2021-04-18] MEDS: MAGNESIUM OXIDE 400 MG TAB PO SCH (12:50)
[2021-04-18] MEDS: FLUoxetine HCL 20 MG CAP PO SCH (12:50)
[2021-04-18] MEDS: SACCHAROMYCES BOULARDII 250 MG CAP PO SCH (12:50)
[2021-04-18] MEDS: CALCIUM 600MG + VIT D 400 IU TAB PO SCH (12:50)
[2021-04-18] MEDS: BUPRENORPHINE/NALOXONE 8/2 MG TAB SL SCH (13:14)
[2021-04-18] MEDS ORDERED: PROMETHAZINE HCL 6.25 MG in SODIUM CHLORIDE 0.9% 50 ML IV PRN (13:34)
[2021-04-18] MEDS: METOPROLOL SUCC 25MG EXT REL TAB PO SCH (13:42)
[2021-04-18] MEDS: FUROSEMIDE 80 MG TAB PO SCH (18:08)
[2021-04-18] MEDS ORDERED: LORazepam 0.5 MG TAB PO STA (20:00)
[2021-04-18 20:13] LABS: Appearance Urine Cloudy (Clear); Bacteria Urine Automated Negative (Negative); Blood Urine 3+ (Negative); Color Urine Orange; Epithelial Cell Urine Auto >30 /lpf (0-5); Glucose Urine UA Negative (Negative); Ketones Urine Negative (Negative); Leukocyte Esterase Urine 1+ (Negative); Nitrite Urine Positive (Negative); Protein Urine 4+ (Negative); Specific Gravity Urine 1.025 (1.000-1.030); Urobilinogen Urine Negative (Negative); WBC Urine Automated >30 /hpf (0-5)
[2021-04-18 20:16] LABS: Bilirubin Urine 2+ (Negative)
[2021-04-18] MEDS: FOLIC ACID 1 MG TAB PO SCH (20:22)
[2021-04-18 20:43] LABS: RBC Urine Automated >30 /hpf (0-4)
[2021-04-18] MEDS: busPIRone 5 MG TAB PO PRN (23:57)
[2021-04-19 05:52] LABS: Hematocrit (blood only) 23.4 % (37-47); Hemoglobin 7.9 g/dL (12.0-16.0); Mean Corpuscular Hgb Conc 33.8 g/dL (32-36); Mean Corpuscular Volume 103.5 fL (80-100); Platelet Count 171 K/uL (130-400); RDW Coefficient of Variation 15.4 % (11.5-14.5); RDW Standard Deviation 57.8 fL (36.4-46.3); Red Blood Count 2.26 M/uL (4.2-5.4)
[2021-04-19 06:27] LABS: Albumin Level 2.3 gm/dl (3.4-5.0); BUN Creatinine Ratio 8.3 (10-20); Calcium 7.6 mg/dl (8.5-10.1); Creatinine Clr Calc Pharmacy 25.2 ml/min; Est GFR (African American) 21.5 ml/min; Est GFR (Non-African American) 18.6 ml/min; Potassium 3.6 mmol/L (3.5-5.1)
[2021-04-19 06:30] LABS: Albumin Globulin Ratio 0.5 (0.9-2); Bilirubin,Total 1.6 mg/dl (0.2-1); Globulin 4.9 gm/dl (2.5-4.0); Phosphorus 5.6 mg/dl (2.5-4.9); Total Protein 7.2 gm/dl (6.4-8.2)
[2021-04-19] MEDS: SACCHAROMYCES BOULARDII 250 MG CAP PO SCH (08:08)
[2021-04-19] MEDS: BUPRENORPHINE/NALOXONE 8/2 MG TAB SL SCH (08:08)
[2021-04-19] MEDS: POTASSIUM CHLORIDE 10 MEQ TABCR PO SCH (08:08)
[2021-04-19] MEDS: FUROSEMIDE 80 MG TAB PO SCH ×2 (08:09→17:32)
[2021-04-19] MEDS: FLUoxetine HCL 20 MG CAP PO SCH (08:09)
[2021-04-19] MEDS: FOLIC ACID 1 MG TAB PO SCH ×2 (08:09→20:34)
[2021-04-19] MEDS: MAGNESIUM OXIDE 400 MG TAB PO SCH (08:09)
[2021-04-19] MEDS: CALCIUM 600MG + VIT D 400 IU TAB PO SCH (08:09)
[2021-04-19] MEDS: MAGNESIUM SULFATE / D5W 1 GM/100 ML BAG IV SCH ×2 (09:18→11:16)
[2021-04-19] MEDS: METOPROLOL SUCC 25MG EXT REL TAB PO SCH (10:22)
[2021-04-19] MEDS: LOPERAMIDE HCL 2 MG CAP PO PRN (14:18)
[2021-04-19] MEDS: LORazepam 0.5 MG TAB PO PRN (14:19)
--- NOTE | 2021-04-19 18:36 | Hospitalist Progress Note ---
Date of Service April 19, 2021 Assessment & Plan (1) Acute and chronic respiratory failure with hypoxia: Present on admission with sob associated with SOB CXR on admissiom showed Interstitial airspace opacities are again seen throughout both lungs. This could represent an infectious/inflammatory pneumon Given Lasix 40 mg IV in the ER, takes 80 mg PO BID at home. Continue oxygen supplement Chest pain Possible related to anxiety Initial troponin is negative EKG reviewed, no signs of ST wave changes, inversions or ischemia Currently denies any chest pain (2) Interstitial pneumonitis: Ultimately would benefit from PFTs, follow with pulm as outpatient Recently completed course of doxycycline on 04/11 Will repeat CXR in am (3) Diarrhea: has been having recurrent episode of diarrheA Stool for cdiff negative KUB unremarkable Continue monitor electrolytes (4) Diastolic CHF: Reported Last echo completed 08/03/2020, LVEF of 60 to 64%, right venticular cvity mildly dilated and right ventricular systolic function is mildly reduced, no LV segmental WMA, dilated IVC with reduced collapsibility indicated elevated right atrial pressure, pulmonary hypertension with pressure of >39 mmHg., normal left ventricular diastolic dysfunction, Mild mitral regurg present. Moderate tricuspid regurg is present. 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 -Pt without known autoimmune disease but reports mother with hx of Lupus. -Hgb 8.7, no need for transfusion currently. Transfuse if <7.5 (6) Anxiety and depression: -C/o anxiety, PTSD, fear of going to appointments. - Increased Prozac to 20 mg daily during last hospitalization( 1 week ago) - continue. - Monitor for weight gain due to prozac, annual lipid panel. Consider Effexor 37.5 mg if prozac medication fails. If neither SNRI/SSRI works, would then try Trintellix 5 mg starting dose. - Avoid benzos if possible - Cont buspirone - Start hydroxyzine prn anxiety - Pt has not followed with outpt psych before. Recommend establishing with outpt care. - Checking TSH and T4 - pt reports previous hx of being on levothyroxine approximately 8 years ago but has not been on it since. Last lab work was done 1 year ago with TSh of 0.858 Patient reports hair loss, weight gain, worsening anxiety, heart issues-- which could possibly do be due to thyroid dysfunction. Consider a thyroid ultrasounds while in hospital. (7) Transaminitis: -History of such, total bili = 1.9, AST = 77, ALT = 22, alk phos = 140 (8) Tobacco abuse: -Continue to encourage cessation, currently smokes 1 to 2 cigarettes daily (9) Obesity (BMI 30.0-34.9): -Diet and exercise encouraged -Monitor with titration up of SSRI (10) PCOS (polycystic ovarian syndrome): - Hx of such, stable, has 2 children, boys, ages 4 and 6. DVT ppx: teds CODE: Full Admission and Anticipated Discharge Date Admission Date: April 18, 2021 Subjective Pt was seen and examined for follow up of diarrhea Lying in bed with no distress Pt said that she continues to have watery diarrhea She said that she had multiple episodes of diarrhea today Pt is very anxious and she has been asking for ativan to manage her anxiety while in the hospital Denies any chest pain, palpitation, dizziness and SOB Review of Systems Review of Systems: All systems reviewed & are unremarkable except as noted in Subjective Physical Exam Physical Exam: General- No acute distress Head- atraumatic Eyes- PERRL, EOMI, ENT- Poor dentition Neck- supple, no JVD Lungs- No wheezing, No crackle Heart- regular rhythm; no murmur Abdomen- normal bowel sounds, soft, nontender Extremities- no calf tenderness, Neuro- alert, oriented x 3; PERRL, EOMI; no facial palsy; no dysarthria Skin- warm & dry Results & Data Results & Data ([facility]) Vital Signs (Past 12 Hours) Vital Signs Temp Pulse Pulse Resp BP Pulse Ox 04/19/21 15:36 78 04/19/21 15:11 36.5 C 75 17 95/55 L 97 04/19/21 11:32 37.1 C 72 22 93/52 L 99 04/19/21 08:00 68 04/19/21 07:37 36.8 C 70 18 95/56 L 97
[2021-04-19] MEDS: NICOTINE 7 MG/24 HR TDSY TD SCH (20:33)
[2021-04-20] MEDS: LORazepam 0.5 MG TAB PO PRN ×4 (00:31→21:21)
[2021-04-20 06:03] LABS: Hematocrit (blood only) 23.8 % (37-47); Hemoglobin 7.9 g/dL (12.0-16.0); Mean Corpuscular Hemoglobin 34.6 pg (25-34); Mean Corpuscular Hgb Conc 33.2 g/dL (32-36); Mean Corpuscular Volume 104.4 fL (80-100); Platelet Count 142 K/uL (130-400); RDW Coefficient of Variation 15.3 % (11.5-14.5); RDW Standard Deviation 57.1 fL (36.4-46.3); Red Blood Count 2.28 M/uL (4.2-5.4); White Blood Count 7.27 K/uL (4.8-10.8)
[2021-04-20 06:50] LABS: Albumin Globulin Ratio 0.4 (0.9-2); Albumin Level 2.1 gm/dl (3.4-5.0); BUN Creatinine Ratio 6.7 (10-20); Bilirubin,Total 1.3 mg/dl (0.2-1); Calcium 7.5 mg/dl (8.5-10.1); Creatinine Clr Calc Pharmacy 17.3 ml/min; Est GFR (African American) 13.7 ml/min; Est GFR (Non-African American) 11.8 ml/min; Globulin 4.9 gm/dl (2.5-4.0); Magnesium 1.6 mg/dl (1.8-2.4)
[2021-04-20] MEDS: METOPROLOL SUCC 25MG EXT REL TAB PO SCH (08:30)
[2021-04-20] MEDS: BUPRENORPHINE/NALOXONE 8/2 MG TAB SL SCH (08:30)
[2021-04-20] MEDS: FOLIC ACID 1 MG TAB PO SCH ×2 (08:30→21:21)
[2021-04-20] MEDS: NICOTINE 7 MG/24 HR TDSY TD SCH (08:31)
[2021-04-20] MEDS: CALCIUM 600MG + VIT D 400 IU TAB PO SCH (08:34)
[2021-04-20] MEDS: MAGNESIUM OXIDE 400 MG TAB PO SCH (08:34)
[2021-04-20] MEDS: SACCHAROMYCES BOULARDII 250 MG CAP PO SCH (08:34)
[2021-04-20] MEDS: FLUoxetine HCL 20 MG CAP PO SCH (08:34)
[2021-04-20] MEDS: FUROSEMIDE 80 MG TAB PO SCH (10:05)
[2021-04-20] MEDS: POTASSIUM CHLORIDE 10 MEQ TABCR PO SCH (10:05)
--- NOTE | 2021-04-20 12:34 | Consultation Report ---
NEPHROLOGY CONSULTATION NOTE DATE OF CONSULTATION: 04/20/2021 REASON FOR CONSULTATION: Acute renal failure. 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 Creat as of 01/2021 was normal at 1.0 but since then has been abnormal with fluctuations--low to mid 2 but then episodes of ARF. She presented to the hospital because of shortness of breath and chest pain. She was found to have acute renal failure. Creatinine on admission 2 days ago was 2.24, which was actually better than a few weeks ago on the day she left against medical advice on 04/09, but since then it has gone up steadily. Iit was 3.03 yesterday and it is 4.41 today. She is not making a lot of urine. Her blood pressure is running on the low side. She chronically uses oxygen and she is still on oxygen. She has been getting Lasix and is currently getting 80 twice daily. She feels better from a breathing standpoint. 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 ALLERGIES: ALLERGY LIST WAS REVIEWED IN DETAIL AND IS PER THE RECONCILIATION LIST. HOME MEDICATIONS: List was also reviewed in detail and includes Lasix 80 twice daily, metoprolol, folic acid, buprenorphine, albuterol, fluoxetine, buspirone, calcium, magnesium. FAMILY HISTORY: Significant for lupus in her mother, but no ESRD in the family. SOCIAL HISTORY: She is a current everyday smoker. She does drink alcohol of all types. She has a history of being on various kind of drugs both legal and illegal. She is currently living with her fiance and 2 adult kids. She does use oxygen continuously at home. REVIEW OF SYSTEMS: Very hard to obtain as the patient is very, very tearful and crying very loudly. She says she had shortness of breath and some chest pain on the day of admission, but is better now. She was also complaining of some nausea, diarrhea and poor appetite for 4-5 days prior to hospitalization, but is better now. Otherwise, 12 systems reviewed and negative. PHYSICAL EXAMINATION: VITAL SIGNS: Most recent vital signs include blood pressure 101/66, pulse rate 71, temperature 36.9, 97% on 3 liters nasal cannula. HEENT: Mucous membrane is moist. NECK: Supple, no jugular venous distention. CHEST: Bilaterally decreased breath sounds with basal crackles. CARDIOVASCULAR: S1 and S2 regular. ABDOMEN: Soft, nontender. EXTREMITIES: Show no edema. SKIN: Shows no rashes now. NEUROLOGIC: She is awake, alert, oriented x3, normal speech, but very, very emotional, tearful and crying loudly. LABORATORY TEST: Reviewed and shows a rising creatinine, which has gone from 2.24 on admission 2 days ago to 3 and now 4.41. Sodium 138, potassium 4.0, BUN 30, calcium 7.5, albumin is low at 2.1. Chest x-ray shows multiple findings, which are hard to interpret whether it is pneumonitis or pulmonary edema. Urine test is very active consistent with ATN with lots of active sediment including epithelial cells, blood and protein. ASSESSMENT AND PLAN: A 41-year-old female with baseline chronic kidney disease stage IV as well as significant cardiac and pulmonary disease and cold agglutinin disease, admitted with shortness of breath with respiratory failure and hypoxia, creatinine has been rising since being admitted for which I have been consulted. Acute renal failure: Creatinine has gone up from 2 range to 3 and now 4. The rate of rise is classic acute tubular necrosis as well as the urine finding. She is not volume depleted, but I am not so sure how to interpret her volume status. I believe the predominant cause of her shortness of breath is more pulmonary in etiology than fluid overload. Given the complexity of the patient, I would recommend to get input from both pulmonary and cardiology. Until then, we can continue the Lasix 80 twice daily. No further workup is needed. It is quite possible she may even need dialysis if the creatinine continues to go up at this pace. She is also making minimal urine. However, as soon as I started to discuss something about dialysis, she started crying very loudly. We will continue to pursue this discussion in the coming days. Case was discussed with primary team. Job ID: [id number]
[2021-04-20] MEDS ORDERED: MAGNESIUM SULFATE / D5W 1 GM/100 ML BAG IV ONE (15:15)
[2021-04-20] MEDS: LOPERAMIDE HCL 2 MG CAP PO PRN (15:35)
[2021-04-20] MEDS ORDERED: SODIUM CHLORIDE 0.9% 250 ML IV PRN (16:06)
[2021-04-20] MEDS: busPIRone 5 MG TAB PO PRN (16:20)
--- NOTE | 2021-04-20 18:55 | Cardiology Consultation ---
Date of Consultation April 20, 2021 Assessment & Plan (1) Acute and chronic respiratory failure with hypoxia: EKG performed 04/18/2021 revealed normal sinus rhythm at 84 bpm, normal ST segments. Her volume status is difficult to assess. She has no edema present and her lungs are clear. No conversational dyspnea noted and she did not get short of breath with lying flat. Her enlarged hepatic silhouette is evident on inspection and palpation on physical exam. Blood pressure is relatively stable for a 109/69. Although her chest x-ray report describes concerns of interstitial edema, is quite clear in comparison to her previous tracings especially those dating back to her 2 events where she was intubated. The patient underwent left and right heart catheterization, coronary angiography at [facility] on 08/15/2020 with angiographically normal coronary arteries. I do not think her on and off again chest pains suggest angina. Hemodynamic assessment revealed very minimal elevation in the pulmonary pressures (37/7 mm Hg). Her mean pulmonary pressure of 23 mmHg at that time was normal. After pulmonary capillary wedge pressure was only minimally elevated at 16. There is no suggestion of intracardiac shunt on invasive cardiac catheterization or previous echocardiogram with agitated saline contrast. Cardiology progress notes from her admission at [facility] in August,, reflected concerns that high output heart failure related to anemia was the best description for her volume overload at that time. She had a repeat echocardiogram today revealing normal LVEF, 60-65%, mild mitral regurgitation, and her Doppler findings include normal indices of left ventricular diastolic function. The right ventricular chamber size and systolic function were normal. At present, I am concerned that perhaps she is intravascularly volume depleted with recent diuretic therapy and diarrhea. I discussed her case with Dr. Copeland by phone and for now we are going to hold off on further diuretic therapy and monitor her respiratory status and her kidney function. We will hold off on further blood transfusion for now, as based on her labs, it does not look like she is actively hemolyzing. An erythropoietin level has been requested. Iron studies as performed in Mar, 2021 when her hemoglobin was 8 g/dL were normal. History of Present Illness Attending Physician: Alexei Rivas MD History of Present Illness Elaine Guzman is a 41-year-old female seen in cardiology consultation per the request of Dr. Rivas for the evaluation of congestive heart failure. The patient has a very complex past medical history including hepatic cirrhosis, hepatitis C, cold agglutinin hemolytic anemia, chronic hypoxia, and past concern for underlying interstitial lung disease. She has a history of volume overload attributed to diastolic heart failure, but is likely more correctly characterized as high-output heart failure in the setting of symptomatic anemia. On 2 separate occasions, April,, and July,, her respiratory status deteriorated to the point that she required ventilator support and transferred to [facility] for tertiary care. She had recently been hospitalized earlier this month, hemoglobin was down to 6.5 g/dL on 04/05/2021 prompting transfusion of 2 units of packed red blood cells. She was discharged on 80 mg of furosemide twice daily. She presents for readmission and her overall chief complaint is just generalized severe easy fatigability as per her description to me rather than spencer dyspnea. She notes recent significant diarrhea since leaving the hospital. Although she describes that she gets short of breath and feels like she is "suffocating" if she lies flat, she was able to lie flat during my examination without difficulty. Hemoglobin 7.9 today which is relatively stable for her. She however has developed worsening acute renal insufficiency. Her baseline creatinine dating back to July, and August 2020 was within normal limits, at time of recent discharge (she actually left AGAINST MEDICAL ADVICE) on 04/09/2021 her creatinine was 3.3, and it is 4.4 today. Allergies Allergy/AdvReac Type Severity Reaction Status Date / Time green pepper Allergy Severe Anaphylaxis Verified 04/18/21 08:12 mushroom Allergy Severe ANAPHYLAXIS Verified 04/18/21 08:12 onion Allergy Severe ANAPHYLAXIS Verified 04/18/21 08:12 tramadol Allergy Mild RASH AND Verified 04/18/21 08:12 ITCHING ketorolac Allergy Unknown RASH Verified 04/18/21 08:12 Home Medications Medication Instructions Recorded Confirmed Type albuterol sulfate 2 puff INHALATION Q4 PRN 04/24/20 04/18/21 History buprenorphine-naloxone 1 tab SUBLINGUAL DAILY 04/24/20 04/18/21 History folic acid 1 mg PO BID 07/30/20 04/18/21 History metoprolol succinate 25 mg PO DAILY 07/30/20 04/18/21 History furosemide 80 mg PO BID 04/04/21 04/18/21 History potassium chloride 10 meq PO DAILY 04/04/21 04/18/21 History fluoxetine 20 mg PO DAILY 30 Days #30 cap 04/09/21 04/18/21 Rx buspirone 5 mg PO BID PRN 04/18/21 04/18/21 History calcium carbonate-vitamin D3 1 tab PO DAILY 04/18/21 04/18/21 History [Calcium 600 + D(3)] magnesium oxide 400 mg PO DAILY 04/18/21 04/18/21 History Patient History Medical History Acute hypokalemia Heart failure with preserved ejection fraction Hepatomegaly Hypomagnesemia Pleural effusion on left Pleural effusion on right Proteinuria Pulmonary edema Transaminitis Family History Mother Lupus (systemic lupus erythematosus) Social History Smoking Status: Current every day smoker Tobacco Type: Cigarettes Cigarettes Per Day: 2; Hx Alcohol Use: Yes Alcohol type: beer, wine and hard liquor Hx Substance Use: Yes Last Used Substance: Days (ago) Last Used Substance Other:: 04/03/2021 medical marijuana Substance Use Type Other:: former pain killers. Is on Saboxen and medical marijuana Preferred Language: Filipino Communication Ability: Effective Screw Supervisor Required: No Beliefs That Will Affect Care: None Current Living Situation: Family Current Living Situation Comment: fiancee and 2 kids Other Information That Helps Us Care for You: No Feels Safe at Home: Yes Safety Concerns: Feels Safe At This Time Assistive Devices: Oxygen - Continuous Physical Exam Physical Exam: Temp Pulse Resp BP Pulse Ox 36.8 C 70 19 109/69 99 04/20/21 15:16 04/20/21 17:51 04/20/21 15:16 04/20/21 15:16 04/20/21 15:16 Constitutional: WD/WN, vitals as above Respiratory: normal respiratory effort, lungs clear to auscultation Cardiovascular: RRR, no murmur, no edema Gastrointestinal (Abdomen): Percussion/Palpation: + hepatomegaly Neurologic: PERRL, EOMI, accommodation nl, no face palsy, no dysarthria Results & Data ([facility]) Vital Signs (Past 12 Hours) Vital Signs Temp Pulse Pulse Resp BP Pulse Ox 04/20/21 17:51 70 04/20/21 15:16 36.8 C 72 19 109/69 99 04/20/21 12:12 36.6 C 74 19 99/64 L 99 04/20/21 07:30 71 04/20/21 07:20 36.9 C 73 19 101/66 97
--- NOTE | 2021-04-20 21:30 | Hospitalist Progress Note ---
Date of Service April 20, 2021 Assessment & Plan (1) Acute and chronic respiratory failure with hypoxia: Present on admission with sob associated with SOB CXR on admissiom showed Interstitial airspace opacities are again seen throughout both lungs. This could represent an infectious/inflammatory pneumon Given Lasix 40 mg IV in the ER, takes 80 mg PO BID at home. Continue oxygen supplement Will hold on additional Lasix due to worsening kidney function Will consider pulmonary consult will repeat chest x-ray in a.m. Chest pain Possible related to anxiety Initial troponin is negative EKG reviewed, no signs of ST wave changes, inversions or ischemia Currently denies any chest pain (2) Acute kidney injury superimposed on chronic kidney disease: Mostly due to acute tubular necrosis Creatinine worsened to 4.4 Nephrology consulted We will hold home Lasix for now Continue monitor BMP (3) Interstitial pneumonitis: Ultimately would benefit from PFTs, follow with pulm as outpatient Recently completed course of doxycycline on 04/11 (4) Diarrhea: has been having recurrent episode of diarrheA Stool for cdiff negative KUB unremarkable Continue monitor electrolytes Clinically improved (5) Diastolic CHF: Reported Last echo completed 08/03/2020, LVEF of 60 to 64%, right venticular cvity mildly dilated and right ventricular systolic function is mildly reduced, no LV segmental WMA, dilated IVC with reduced collapsibility indicated elevated right atrial pressure, pulmonary hypertension with pressure of >39 mmHg., normal left ventricular diastolic dysfunction, Mild mitral regurg present. Moderate tricuspid regurg is present. Cardiology on board Repeat echo showed normal wall motion abnormality with ejection fraction 60 to 65% Case discussed with cardiology recommend to hold Lasix for now (6) Anemia: cold Agglutinins related anemia - Hx of being on rituxan therapy and plasmapheresis Peripheral smear during last admission showed red cells appear mildly macrocytic and target cells are noted. Mild rouleaux formation is noted. No schistocyte and abx screen negative Result discussed with Dr. Oneil that recommended to transfused warm PRBC Received 2 unit PRBC during last admission Hemoglobin 7.9 today We will hold on any blood transfusion for now for possible volume overload Continue monitor CBC (7) Anxiety and depression: C/o anxiety, PTSD, fear of going to appointments. Increased Prozac to 20 mg daily during last hospitalization( 1 week ago) - continue. . Continue buspirone hydroxyzine prn anxiety Will need follow-up appointment with psych as an outpatient (8) Transaminitis: On admission total bili = 1.9, AST = 77, ALT = 22, alk phos = 140 Today AST 54, ALT 19 alk phos falls 118 (9) Tobacco abuse: Counseling on smoking cessation (10) Obesity (BMI 30.0-34.9): -Diet and exercise encouraged -Monitor with titration up of SSRI (11) PCOS (polycystic ovarian syndrome): - Hx of such, stable, has 2 children, boys, ages 4 and 6. DVT ppx: teds CODE: Full Admission and Anticipated Discharge Date Admission Date: April 20, 2021 Subjective Pt was seen and examined for follow up of diarrhea Lying in bed with no distress Patient continues to be very anxious and very tearful She is asking for ativan to increase to every 6 hours as needed She said that she felt much better today and was able to clean herself Denies any chest pain, palpitation, dizziness and SOB Review of Systems Review of Systems: All systems reviewed & are unremarkable except as noted in Subjective Physical Exam Physical Exam: General- No acute distress Head- atraumatic Eyes- PERRL, EOMI, ENT- Poor dentition Neck- supple, no JVD Lungs- No wheezing, No crackle Heart- regular rhythm; no murmur Abdomen- normal bowel sounds, soft, nontender Extremities- no calf tenderness, Neuro- alert, oriented x 3; PERRL, EOMI; no facial palsy; no dysarthria Skin- warm & dry Results & Data Results & Data ([facility]) Vital Signs (Past 12 Hours) Vital Signs Temp Pulse Pulse Resp BP Pulse Ox 04/20/21 19:55 37.0 C 71 18 100/64 99 04/20/21 17:51 70 04/20/21 15:16 36.8 C 72 19 109/69 99 04/20/21 12:12 36.6 C 74 19 99/64 L 99 (1) Anemia Anemia type: unspecified type Qualified Code(s): D64.9 - Anemia, unspecified
[2021-04-20] MEDS: hydrOXYzine HCl 25 MG TAB PO PRN (21:36)
[2021-04-21] MEDS: LORazepam 0.5 MG TAB PO PRN ×3 (04:17→16:14)
[2021-04-21] MEDS: FOLIC ACID 1 MG TAB PO SCH (07:53)
[2021-04-21] MEDS: POTASSIUM CHLORIDE 10 MEQ TABCR PO SCH (07:53)
[2021-04-21] MEDS: hydrOXYzine HCl 25 MG TAB PO PRN (07:53)
[2021-04-21] MEDS: BUPRENORPHINE/NALOXONE 8/2 MG TAB SL SCH (07:58)
[2021-04-21] MEDS: METOPROLOL SUCC 25MG EXT REL TAB PO SCH (07:59)
[2021-04-21 08:15] LABS: Hematocrit (blood only) 24.4 % (37-47); Mean Corpuscular Hemoglobin 33.8 pg (25-34); Mean Corpuscular Hgb Conc 32.8 g/dL (32-36); Platelet Count 152 K/uL (130-400); RDW Coefficient of Variation 15.3 % (11.5-14.5); RDW Standard Deviation 56.2 fL (36.4-46.3); Red Blood Count 2.37 M/uL (4.2-5.4); White Blood Count 6.81 K/uL (4.8-10.8)
[2021-04-21] MEDS: NICOTINE 7 MG/24 HR TDSY TD SCH (08:40)
[2021-04-21] MEDS: MAGNESIUM OXIDE 400 MG TAB PO SCH (08:41)
[2021-04-21] MEDS: CALCIUM 600MG + VIT D 400 IU TAB PO SCH (08:41)
[2021-04-21] MEDS: SACCHAROMYCES BOULARDII 250 MG CAP PO SCH (08:41)
[2021-04-21] MEDS: FLUoxetine HCL 20 MG CAP PO SCH (08:41)
[2021-04-21 08:59] LABS: Albumin Globulin Ratio 0.5 (0.9-2); Albumin Level 2.3 gm/dl (3.4-5.0); BUN Creatinine Ratio 5.9 (10-20); Bilirubin,Total 1.1 mg/dl (0.2-1); Calcium 8.3 mg/dl (8.5-10.1); Creatinine Clr Calc Pharmacy 12.2 ml/min; Est GFR (African American) 8.9 ml/min; Est GFR (Non-African American) 7.7 ml/min; Globulin 5.1 gm/dl (2.5-4.0); Potassium 4.2 mmol/L (3.5-5.1); Total Protein 7.4 gm/dl (6.4-8.2)
--- NOTE | 2021-04-21 10:21 | Nephrology Progress Note ---
Date of Service April 21, 2021 Assessment & Plan Admission and Anticipated Discharge Date Admission Date: April 20, 2021 Subjective Denies SOB. very tearful and crying. Not much urine. PHYSICAL EXAMINATION: BP trending down now HEENT: Mucous membrane is moist. NECK: Supple, no jugular venous distention. CHEST: Bilaterally decreased breath sounds with basal crackles. CARDIOVASCULAR: S1 and S2 regular. ABDOMEN: Soft, nontender. EXTREMITIES: Show no edema. SKIN: Shows no rashes now. NEUROLOGIC: She is awake, alert, oriented x3, normal speech, but very, very emotional, tearful and crying loudly. LABORATORY TEST: Reviewed and shows a rising creatinine, which has gone from 2.24 on admission 2 days ago to 3 and now 6.2 Chest x-ray shows multiple findings, which are hard to interpret whether it is pneumonitis or pulmonary edema. Urine test is very active consistent with ATN with lots of active sediment including epithelial cells, blood and protein. ASSESSMENT AND PLAN: A 41-year-old female with rising creatinine for the last few months. She has significant cardiac and pulmonary disease and cold agglutinin disease related with Hep C, admitted with shortness of breath with respiratory failure and hypoxia. Creatinine has been rising since being admitted for which I have been consulted. Acute renal failure: Creatinine has gone up from 2 range to 3 and now 6+. has Significant Oliguria. The rate of rise of creatinine is classic acute tubular necrosis as well as the urine finding. It is quite possible she may even need dialysis if the creatinine continues to go up at this pace. She is also making minimal urine. if renal function does not turn around in next 2 days she will need dialysis. Patient and mother agreeable to plan for dialysis if such need arise. However, as soon as I started to discuss something about dialysis, she started crying very loudly. Discussed with mother and let her know. Such rapid rise in creatinine with severe oliguria is ATN or Severe Obstruction. So will do renal US. Given her complicated History will also do Acute GN workup but this is less likely as we dont usually see such rapid rise. Unfortunately Results will take many days to come back. We will continue to pursue this discussion in the coming days. Case was discussed with primary team. Discussed in detail with Hospitalist, Pulm/Critical care and cards and consensus was it is best to transfer her to [facility] for tertiary level care given the complexity of her issues. Results & Data ([facility]) Vital Signs (Past 12 Hours) Vital Signs Temp Pulse Pulse Resp BP Pulse Ox 04/21/21 08:00 70 04/21/21 07:20 36.9 C 70 19 91/52 L 99 04/21/21 04:19 37.1 C 74 18 83/55 L 100 04/20/21 23:43 37.1 C 73 18 95/61 L 97
--- NOTE | 2021-04-21 11:18 | Cardiology Progress Note ---
Date of Service April 21, 2021 Assessment & Plan (1) Acute and chronic respiratory failure with hypoxia: (2) Acute kidney injury superimposed on chronic kidney disease: Hgb stable a 8 g/dl, but question what is ideal versus acceptable Hgb for her. Systolic blood pressures 83-109 mm Hg over last 24hrs, most recently 91/52. Creatinine now > 6 mg /dl. Not clinically volume overloaded, however hesitant to give fluids given two past ventilator courses with spencer pulmonary edema. Echo 04/20/21 with normal biventricular function, normal Diastolic indices by Doppler, normal inferior vena cava diameter suggestive normal to low CVP. Patient is very complex with multisystem issues. Agree with consideration of transfer to tertiary center. Case discussed with Dr Rivas. Admission and Anticipated Discharge Date Admission Date: April 20, 2021 Subjective Patient seen and examined. Telemetry reveals SR in the 60-70s. Anxious and tearful. Denies resting shortness of breath. Review of Systems Review of Systems: All systems reviewed & are unremarkable except as noted in HPI & below Physical Exam Physical Exam: Temp Pulse Resp BP Pulse Ox 36.9 C 70 19 91/52 L 99 04/21/21 07:20 04/21/21 08:00 04/21/21 07:20 04/21/21 07:20 04/21/21 07:20 Constitutional: WD/WN, vitals as above Respiratory: normal respiratory effort, lungs clear to auscultation Cardiovascular: RRR, no murmur, no edema Gastrointestinal (Abdomen): Percussion/Palpation: + hepatomegaly and + splenomegaly Neurologic: PERRL, EOMI, accommodation nl, no face palsy, no dysarthria Results & Data ([facility]) Vital Signs (Past 12 Hours) Vital Signs Temp Pulse Pulse Resp BP Pulse Ox 04/21/21 08:00 70 04/21/21 07:20 36.9 C 70 19 91/52 L 99 04/21/21 04:19 37.1 C 74 18 83/55 L 100 04/20/21 23:43 37.1 C 73 18 95/61 L 97 Laboratory Results Cardiac Enzymes 04/21/21 Range/Units 07:53 AST 48 H (15-37) U/L CBC 04/21/21 Range/Units 07:53 WBC 6.81 (4.8-10.8) K/uL RBC 2.37 L (4.2-5.4) M/uL Hgb 8.0 L (12.0-16.0) g/dL Hct 24.4 L (37-47) % Plt Count 152 (130-400) K/uL Comprehensive Metabolic Panel 04/21/21 Range/Units 07:53 Sodium 137 (136-145) mmol/L Potassium 4.2 (3.5-5.1) mmol/L Chloride 103 (98-107) mmol/L Carbon Dioxide 24 (21-32) mmol/L BUN 37 H (7-18) mg/dl Creatinine 6.29 H* D (0.6-1.2) mg/dl Glucose 83 (70-99) mg/dl Calcium 8.3 L (8.5-10.1) mg/dl AST 48 H (15-37) U/L ALT 19 (12-78) U/L Alkaline Phosphatase 117 (45-117) U/L Total Protein 7.4 (6.4-8.2) gm/dl Albumin 2.3 L (3.4-5.0) gm/dl Intake and Output 04/20/21 04/21/21 04/21/21 22:59 06:59 14:59 Intake Total 220 / 710 100 / 710 Output Total 50 / 225 50 / 225 Balance 170 / 485 50 / 485 Intake: IV 100 / 100 Magnesium Sulfate / D5w 1 gm In 100 / 100 100 ml @ 50 mls/hr IV ONE ONE Rx#:[id number] Oral 120 / 610 100 / 610 Output: Urine 50 / 225 50 / 225 Other: Other Intake Source ice chips Weight 78.2 kg 78.3 kg Weight Measurement Method Standing Scale Patient Weight 04/22/21 06:59 Weight 78.3 kg Medications Administered Current Inpatient Medications Albuterol (Albuterol Hfa 8 Gm Inhaler) 2 puffs INH Q4H PRN PRN Reason: Shortness Of Breath Or Wheezing Stop: 05/18/21 10:49 Buprenorphine/Naloxone (Buprenorphine/Naloxone 8/2 Mg Tab) 1 tab SL Q24H ALLY Stop: 05/18/21 11:44 Last Admin: 04/21/21 07:58 Dose: 1 tab Documented by: Buspirone HCl (Buspirone 5 Mg Tab) 5 mg PO BID PRN PRN Reason: Anxiety Stop: 05/18/21 10:56 Last Admin: 04/20/21 16:20 Dose: 5 mg Documented by: Fluoxetine HCl (Fluoxetine Hcl 20 Mg Cap) 20 mg PO DAILY [facility] Stop: 05/18/21 11:59 Last Admin: 04/21/21 08:41 Dose: 20 mg Documented by: Folic Acid (Folic Acid 1 Mg Tab) 1 mg PO BID ALLY Stop: 05/18/21 20:59 Last Admin: 04/21/21 07:53 Dose: 1 mg Documented by: Hydroxyzine HCl (Hydroxyzine Hcl 25 Mg Tab) 25 mg PO Q4H PRN PRN Reason: anxiety Stop: 05/18/21 10:50 Last Admin: 04/21/21 07:53 Dose: 25 mg Documented by: Promethazine HCl 6.25 mg/ (Sodium Chloride) 50.25 mls @ 201 mls/hr IV Q6H PRN PRN Reason: Nausea And Vomiting Stop: 05/18/21 13:33 Loperamide HCl (Loperamide Hcl 2 Mg Cap) 2 mg PO Q8H PRN PRN Reason: Diarrhea Stop: 05/19/21 13:02 Last Admin: 04/20/21 15:35 Dose: 2 mg Documented by: Lorazepam (Lorazepam 0.5 Mg Tab) 0.5 mg PO Q6H PRN PRN Reason: Anxiety Stop: 05/19/21 12:59 Last Admin: 04/21/21 10:00 Dose: 0.5 mg Documented by: Metoprolol Succinate (Metoprolol Succ 25mg Ext Rel Tab) 25 mg PO DAILY [facility] Stop: 05/18/21 11:59 Last Admin: 04/21/21 07:59 Dose: Not Given Documented by: Miscellaneous (Remove Nicoderm Patch) 1 ea N/A DAILY@0859 [facility] Stop: 05/19/21 19:58 Last Admin: 04/21/21 08:41 Dose: 1 ea Documented by: Multivitamins/Minerals (Calcium 600mg + Vit D 400 Iu Tab) 1 tab PO DAILY [facility] Stop: 05/18/21 11:59 Last Admin: 04/21/21 08:41 Dose: 1 tab Documented by: Nicotine (Nicotine 7 Mg/24 Hr Tdsy) 7 mg TD QAM [facility] Stop: 05/19/21 19:59 Last Admin: 04/21/21 08:40 Dose: 7 mg Documented by: Saccharomyces Boulardii (Saccharomyces Boulardii 250 Mg Cap) 250 mg PO DAILY [facility] Stop: 05/18/21 10:59 Last Admin: 04/21/21 08:41 Dose: 250 mg Documented by:
--- NOTE | 2021-04-21 11:22 | Hospitalist Progress Note ---
Date of Service April 21, 2021 Assessment & Plan (1) Acute and chronic respiratory failure with hypoxia: Present on admission with sob associated with SOB CXR on admission showed Interstitial airspace opacities are again seen throughout both lungs. This could represent an infectious/inflammatory pneumon Given Lasix 40 mg IV in the ER, takes 80 mg PO BID at home. Continue oxygen supplement Continue to hold on additional Lasix due to worsening kidney function Case discussed with pulmonology ( Official consult cancelled) that said pt needed to get dialysis. Nothing to add from pulm standpoint Braiding Machine Tender does not feel comfortable to place dialysis access recommended tunnel cath to be placed by Surgery Since pt is very complex and transferred twice on Ventilation support to [place], will transfer to [place] case discussed with Dr. Mccrary at [facility] [place] who agreed to accept the patient to transfer to [place] Pt and family was notified about the transferring Chest pain Possible related to anxiety Initial troponin is negative EKG reviewed, no signs of ST wave changes, inversions or ischemia Currently denies any chest pain (2) Acute kidney injury superimposed on chronic kidney disease: Mostly due to acute tubular necrosis Creatinine continue to worsening to 4.4-->6.2 Nephrology on board recommended to continue to hold home Lasix Pt might need dialysis if creatinine continue worsening Decision was made to transfer to [facility] in case pt will need urgent dialysis over the weekend Might need a renal biopsy Continue monitor BMP (3) Interstitial pneumonitis: Ultimately would benefit from PFTs, follow with pulm as outpatient Recently completed course of doxycycline on 04/11 (4) Diarrhea: has been having recurrent episode of diarrheA Stool for cdiff negative KUB unremarkable Continue monitor electrolytes Clinically improved (5) Diastolic CHF: Reported Last echo completed 08/03/2020, LVEF of 60 to 64%, right venticular cvity mildly dilated and right ventricular systolic function is mildly reduced, no LV segmental WMA, dilated IVC with reduced collapsibility indicated elevated right atrial pressure, pulmonary hypertension with pressure of >39 mmHg., normal left ventricular diastolic dysfunction, Mild mitral regurg present. Moderate tricuspid regurg is present. Cardiology on board Repeat echo showed normal wall motion abnormality with ejection fraction 60 to 65% Case discussed with cardiology recommend to hold Lasix for now (6) Anemia: cold Agglutinins related anemia - Hx of being on rituxan therapy and plasmapheresis Peripheral smear during last admission showed red cells appear mildly macrocytic and target cells are noted. Mild rouleaux formation is noted. No schistocyte and abx screen negative Result discussed with Dr. Oneil that recommended to transfused warm PRBC Received 2 unit PRBC during last admission Hemoglobin 8 today We will hold on any blood transfusion for now for possible volume overload Continue monitor CBC Will need hematology consult (7) Anxiety and depression: C/o anxiety, PTSD, fear of going to appointments. Increased Prozac to 20 mg daily during last hospitalization( 1 week ago) - continue. . Continue buspirone hydroxyzine prn anxiety Continue Ativan prn while inpatient Will need follow-up appointment with psych as an outpatient (8) Transaminitis: On admission total bili = 1.9, AST = 77, ALT = 22, alk phos = 140 Today AST 48, ALT 19 alk phos falls 118 Will possible need a liver biopsy (9) Tobacco abuse: Counseling on smoking cessation (10) Obesity (BMI 30.0-34.9): -Diet and exercise encouraged -Monitor with titration up of SSRI (11) PCOS (polycystic ovarian syndrome): - Hx of such, stable, has 2 children, boys, ages 4 and 6. DVT ppx: teds CODE: Full Disposition Transfer to [place] Accepting physician Dr. Chapin Admission and Anticipated Discharge Date Admission Date: April 20, 2021 Subjective Pt was seen and examined for follow up of renal function. Lying in bed with no distress Patient continues to be very anxious and tearful while I told her that her renal function worsening I told her that it will be best to management her at a tertiary care facility due to the complexity of her car I spoke to nephrology that felt patient might need to get dialysis anytime soon Spoke to the Braiding Machine Tender about putting the dialysis access, unfortunately the silviculture teacher does not feel comfortable to do it because the last time she got intubated after bronch and transferred to [place] Cardiology/pulmonary agreed to transfer to a tertiary care since pt can deteriorate quickly ( Pt transferred on 04/23 and 07/24 on ventilation support ) Denies any chest pain, palpitation, dizziness and SOB Review of Systems Review of Systems: All systems reviewed & are unremarkable except as noted in Subjective Physical Exam Physical Exam: General- No acute distress Head- atraumatic Eyes- PERRL, EOMI, ENT- Poor dentition Neck- supple, no JVD Lungs- No wheezing, No crackle Heart- regular rhythm; no murmur Abdomen- normal bowel sounds, soft, nontender Extremities- no calf tenderness, Neuro- alert, oriented x 3; PERRL, EOMI; no facial palsy; no dysarthria Skin- warm & dry Results & Data Results & Data ([facility]) Vital Signs (Past 12 Hours) Vital Signs Temp Pulse Pulse Resp BP Pulse Ox 04/21/21 08:00 70 04/21/21 07:20 36.9 C 70 19 91/52 L 99 04/21/21 04:19 37.1 C 74 18 83/55 L 100 04/20/21 23:43 37.1 C 73 18 95/61 L 97 (1) Anemia Anemia type: unspecified type Qualified Code(s): D64.9 - Anemia, unspecified
--- NOTE | 2021-04-21 12:25 | Discharge Summary ---
Date of Service April 21, 2021 Admission HPI Per Admitting Provider This is a 41-year-old female with PMHx of chronic respiratory failure with hypoxia, diastolic heart failure, liver cirrhosis, hemolytic anemia,hepatitis C virus carrier, transaminitis, hypothyroidism, polycystic ovarian syndrome, chronic tobacco use, medical marijuana use, PTSD, anxiety, depression, SHIRA who presents to the ER with diarrhea, shortness of breath and chest pain. She was recently admitted here between 04/05-04/09 where she did receive 2 units of PRBCs under the recommendation of Dr. Hoyt with oncology/hematology. Her acute on chronic respiratory failure with hypoxia and diastolic heart failure was treated with Lasix 80 mg twice daily, as well as completing a course of doxycycline for interstitial pneumonitis. Her creatinine is 2.24 today compared to previously being 3.3, she was seen by nephrology during her last hospital stay with a normal renal ultrasound. Splenomegaly was noted on ultrasound being 19 cm in length. She follows with gastroenterology and hepatology as an outpatient. Today the patient's main complaint is worsening diarrhea in the past 2 days. She complains that she has had a poor appetite has been unable to eat anything but to grapes in the past 5 days. She is drinking water and Gatorade. Admits to having nausea but no vomiting today. She denies any abdominal cramping, hematemesis, black tarry school stools or hematochezia. Her other main complaint is her continued shortness of breath and "feeling like I am going to suffocate". Patient describes a rubber bandlike pain/pressure across her chest, without radiation to her back or jaw. With exertion her O2 sat dropped to 85% on 3 L, at rest remains in the high 90s. She is taking all her medications as prescribed including her Lasix 80 mg twice daily. Patient remembers weighing 184 pounds whenever she was discharged approximately 1 week ago, but has not weighed herself since being home. Her anxiety is extremely bad today. She has always been nervous to go to the hospital/call 911, but reports that her anxiety is worsening. Of late, she is having panic attacks even prior to outpatient appointments. She was recently started on Prozac 1 month ago and the dose was increased to 20 mg daily during her last hospital stay. She was also started on buspirone as an outpatient by her PCP and feels that it works for her anxiety but that it is short-lived. Patient has not yet followed with outpatient psychiatry, let alone any of the other specialties that she was referred to after her last hospital stay. Admission Exam Per Admitting Provider General: awake, alert, + anxious, obese with BMI of 31.5, appears older than stated age. Head: Normocephalic, atraumatic ENT: PERRL, EOMI, no pharyngeal exudate, mucous membranes slightly dry, poor dentition. Chest: Clear to auscultation, on 3 LPM NC, no wheezes rales or rhonchi Cardiac: Regular rate and rhythm, faint systolic murmur, no JVD, normal peripheral pulses, good capillary refill Abdominal: NABS x 4 quadrants, soft, nondistended, nontender to palpation, no rebound or guarding Extremities: Normal inspection, no peripheral edema or erythema, calfs nontender to palpation Psych: Anxious and tearful mood and affect, rapid speech at times Neuro: AAO x 3, strength intact bilaterally and rated 5/5, no motor deficits, speech is clear, no peripheral sensory deficits Principal Diagnosis Acute and chronic respiratory failure with hypoxia: Chest pain Acute kidney injury superimposed on chronic kidney disease: Interstitial pneumonitis: Diarrhea: Diastolic CHF: cold Agglutinins related anemia Anxiety and depression: Transaminitis: Tobacco abuse: Obesity (BMI 30.0-34.9): PCOS (polycystic ovarian syndrome): Discharge Exam General- No acute distress Head- atraumatic Eyes- PERRL, EOMI, ENT- Poor dentition Neck- supple, no JVD Lungs- No wheezing, No crackle Heart- regular rhythm; no murmur Abdomen- normal bowel sounds, soft, nontender Extremities- no calf tenderness, Neuro- alert, oriented x 3; PERRL, EOMI; no facial palsy; no dysarthria Skin- warm & dry Discharge Data Allergies Allergy/AdvReac Type Severity Reaction Status Date / Time green pepper Allergy Severe Anaphylaxis Verified 04/18/21 08:12 mushroom Allergy Severe ANAPHYLAXIS Verified 04/18/21 08:12 onion Allergy Severe ANAPHYLAXIS Verified 04/18/21 08:12 tramadol Allergy Mild RASH AND Verified 04/18/21 08:12 ITCHING ketorolac Allergy Unknown RASH Verified 04/18/21 08:12 Consultations 04/18/21 09:54 ED Decision to Admit Stat 04/19/21 10:18 Consult Patient Rep / Service Excellence [Consult Patient Services] Stat 04/20/21 08:11 Consult Nephrology Routine 04/20/21 14:56 Consult Cardiology Routine Ordered Studies 04/21/21 14:00 US renal/blad retro comp Urgent KUB HISTORY: epigastric pain COMPARISON: MRCP 07/30/2020. FINDINGS: The bowel gas pattern is unremarkable. There are no dilated loops of small bowel to suggest an obstruction. No renal calculi. No ureteral calculi. Calcifications in the deep pelvis likely represent phleboliths. No pneumoperit oneum or pneumatosis. IMPRESSION: Unremarkable KUB. No evidence for bowel obstruction. ACT 112: Negative or not required by law. Electronically signed by: Jose L Gold M.D. 04/18/2021 7:58 AM Dictated: 04/18/21756Transcribed: 04/18/21756 SINGLE VIEW CHEST CLINICAL HISTORY: Atypical chest pain. FINDINGS: An AP, portable, upright chest radiograph is compared to study dated 04/09/2021 and correlated with chest CT dated 07/30/2020. The cardiac silhouette appears enlarged. Hazy interstitial airspace opacities are again seen throughout both lungs. No large pleural effusion or pneumothorax is identified. The bony thorax is grossly intact. IMPRESSION: Hazy interstitial airspace opacities are again seen throughout both lungs. This could represent an infectious/inflammatory pneumonitis or possibly pulmonary edema. Clinical correlation will be required. ACT 112: Negative or not required by law. Electronically signed by: Jeff Ferrera M.D. 04/18/2021 7:16 AM Dictated: 04/18/2115Transcribed: 04/18/21714 Hospital Course (1) Acute and chronic respiratory failure with hypoxia: Present on admission with sob associated with SOB CXR on admission showed Interstitial airspace opacities are again seen throughout both lungs. This could represent an infectious/inflammatory pneumon Given Lasix 40 mg IV in the ER, takes 80 mg PO BID at home. Continue oxygen supplement Continue to hold on additional Lasix due to worsening kidney function Case discussed with pulmonology ( Official consult cancelled) that said pt needed to get dialysis. Nothing to add from pulm standpoint Call Out Operator does not feel comfortable to place dialysis access recommended tunnel cath to be placed by Surgery Since pt is very complex and transferred twice on Ventilation support to [place], will transfer to [place] case discussed with Dr. Mccrary at [facility] [place] who agreed to accept the patient to transfer to [place] Pt and family was notified about the transferring Chest pain Possible related to anxiety Initial troponin is negative EKG reviewed, no signs of ST wave changes, inversions or ischemia Currently denies any chest pain (2) Acute kidney injury superimposed on chronic kidney disease: Mostly due to acute tubular necrosis Creatinine continue to worsening to 4.4-->6.2 Nephrology on board recommended to continue to hold home Lasix Pt might need dialysis if creatinine continue worsening Decision was made to transfer to [facility] in case pt will need urgent dialysis over the weekend Might need a renal biopsy Continue monitor BMP (3) Interstitial pneumonitis: Ultimately would benefit from PFTs, follow with pulm as outpatient Recently completed course of doxycycline on 04/11 (4) Diarrhea: has been having recurrent episode of diarrheA Stool for cdiff negative KUB unremarkable Continue monitor electrolytes Clinically improved (5) Diastolic CHF: Reported Last echo completed 08/03/2020, LVEF of 60 to 64%, right venticular cvity mildly dilated and right ventricular systolic function is mildly reduced, no LV segmental WMA, dilated IVC with reduced collapsibility indicated elevated right atrial pressure, pulmonary hypertension with pressure of >39 mmHg., normal left ventricular diastolic dysfunction, Mild mitral regurg present. Moderate tricuspid regurg is present. Cardiology on board Repeat echo showed normal wall motion abnormality with ejection fraction 60 to 65% Case discussed with cardiology recommend to hold Lasix for now (6) Anemia: cold Agglutinins related anemia - Hx of being on rituxan therapy and plasmapheresis Peripheral smear during last admission showed red cells appear mildly macrocytic and target cells are noted. Mild rouleaux formation is noted. No schistocyte and abx screen negative Result discussed with Dr. Oneil that recommended to transfused warm PRBC Received 2 unit PRBC during last admission Hemoglobin 8 today We will hold on any blood transfusion for now for possible volume overload Continue monitor CBC Will need hematology consult (7) Anxiety and depression: C/o anxiety, PTSD, fear of going to appointments. Increased Prozac to 20 mg daily during last hospitalization( 1 week ago) - continue. . Continue buspirone hydroxyzine prn anxiety Continue Ativan prn while inpatient Will need follow-up appointment with psych as an outpatient (8) Transaminitis: On admission total bili = 1.9, AST = 77, ALT = 22, alk phos = 140 Today AST 48, ALT 19 alk phos falls 118 Will possible need a liver biopsy (9) Tobacco abuse: Counseling on smoking cessation (10) Obesity (BMI 30.0-34.9): -Diet and exercise encouraged -Monitor with titration up of SSRI (11) PCOS (polycystic ovarian syndrome): - Hx of such, stable, has 2 children, boys, ages 4 and 6. DVT ppx: teds CODE: Full Disposition Transfer to [place] Accepting physician Dr. Chapin Total Time Total Time Spent Total Time Spent (In Minutes): 40 minutes Total Time Includes: Examination of the Patient, Discharge Planning, Medication Reconciliation, Communication With Other Providers and Other Discharge Plan Discharge Items Patient Disposition: Transfer Acute Care Hospital Reason For Visit: CHEST PAIN Discharge Diagnosis: Acute and chronic respiratory failure with hypoxia: Acute kidney injury superimposed on chronic kidney disease: Activity: Resume your previous activity Non-emergency contact: Primary Care Provider Call non-emergency contact if: you have any medication questions Follow-up/Referrals: Andre Siegel MD [Primary Care Provider] - Diet: Heart Healthy Addtl Attending Provider Instructions: Follow up with your primary care provider once discharge from [place] Accepting physician Dr. Mccrary Pending Studies at Discharge: No Stand-Alone Forms: My [facility] Skilled Items Patient informed of condition?: Yes DNR: No Discharge Level of Care: Other Communicable Disease: No Discharge Prognosis: Stable Lines: Peripheral IV Urinary Catheter: No Medications and DC Order Prescriptions: Continued albuterol sulfate 90 mcg/actuation Hfa Aerosol Inhaler 2 puff INHALATION Q4 PRN (Reason: Shortness Of Breath Or Wheezing) RF: 0 buprenorphine-naloxone 8-2 mg tablet, sublingual 1 tab SUBLINGUAL DAILY RF: 0 folic acid 1 mg tablet 1 mg PO BID RF: 0 metoprolol succinate 25 mg tablet extended release 24 hr 25 mg PO DAILY RF: 0 potassium chloride 10 mEq capsule, extended release 10 meq PO DAILY RF: 0 furosemide 80 mg tablet 80 mg PO BID RF: 0 fluoxetine 20 mg Capsule 20 mg PO DAILY 30 Days Qty: 30 RF: 0 calcium carbonate-vitamin D3 [Calcium 600 + D(3)] 600 mg(1,500mg) -400 unit tablet 1 tab PO DAILY RF: 0 buspirone 5 mg tablet 5 mg PO BID PRN (Reason: Anxiety) RF: 0 magnesium oxide 400 mg (241.3 mg magnesium) tablet 400 mg PO DAILY RF: 0 Admission Data Admit Date/Time: 04/20/21 09:54 Attending Provider: Alexei Rivas Admit Provider: Maribell Adams Primary Care Provider: Andre Siegel Other Providers: Maribell Adams ; Gil Copeland ; David Sharma
[2021-04-21] MEDS ORDERED: LORazepam 0.5 MG TAB PO STA (13:13)
--- NOTE | 2021-04-21 14:23 | Ultrasound Report ---
RENAL ULTRASOUND HISTORY: Acute renal failure with severe Oliguria--r/o Hydronephrosis COMPARISON: KUB 04/18/2021. Renal ultrasound 04/07/2021. FINDINGS: Right kidney: 12.2 cm. No hydronephrosis. Normal corticomedullary differentiation and cortical thickn ess. Left kidney: 11.4 cm. No hydronephrosis. Normal corticomedullary differentiation and cortical thickne ss. Bladder: No bladder wall thickening. The bilateral ureteral jets were identified. Miscellaneous: Hepatosplenomegaly with the liver measuring 23 cm and the spleen measuring 17.3 cm. IMPRESSION: 1. Normal kidneys. No hydronephrosis. 2. Hepatosplenomegaly is again noted. ACT 112: Negative or not required by law. Electronically signed by: Jose L Gold M.D. 04/21/2021 2:21 PM
[2021-04-27 03:56] LABS: ANCA Screen Negative (Negative); Anti Nuclear Antibody Screen NEGATIVE (NEGATIVE); Complement C3 157 mg/dL (83-193); Myeloperoxidase Ab <1.0 AI (<1.0); Proteinase-3 AB <1.0 AI (<1.0)
== END 2021-04-21 16:42 | disposition short-term general hospital (02) | DRG 189 ==
LOC: 2S 06:42 → ED 06:42 → SUATTDRO 10:55 → 2S 11:08

== ENCOUNTER 2021-08-25 19:55 | Inpatient (IN) ==
[2021-08-25 20:41] LABS: Mean Corpuscular Hgb Conc 32.2 g/dL (32-36)
[2021-08-25] MEDS ORDERED: cefTRIAXone SODIUM 1,000 MG/50 ML BAG IV STA (20:42)
[2021-08-25] MEDS ORDERED: VANCOMYCIN CONSULT ACTIVE PRN (20:42)
[2021-08-25] MEDS ORDERED: VANCOMYCIN HCL 1,750 MG in SODIUM CHLORIDE 0.9% 500 ML IV ONE (20:42)
[2021-08-25 20:51] LABS: INR 1.4 (0.9-1.1); Partial Thromboplastin Ratio 1.2; Prothrombin Time 13.5 Seconds (9.0-12.0)
--- NOTE | 2021-08-25 20:54 | Emergency Department Note ---
Impression & Plan Bacteremia due to Gram-positive bacteria, Fever, Acidosis, lactic ED Provider Note NAME: ELYSSA MURRAY AGE: 41 SEX: F : 1980 ARRIVES VIA: Ambulance INFORMANT: Patient, ED PROVIDER(S): Neo Murry DO CHIEF COMPLAINT: Bacteremia HPI: The patient is a 41-year-old female who presented to the emergency department for an evaluation of fever. The patient states that she has a history of dialysis and she last received dialysis on Saturday. At that time she did have some slight fevers. She had blood cultures done and taina was called to go to the emergency department because her blood cultures were positive. The patient had gram-positive cocci in clusters in her blood culture. She states that she continues to have fever as well as malaise. She denies having any hemoptysis. She is had no GI bleeding. She denies have any lower extremity swelling. She does have a port in her left chest that is used for dialysis. She states that it does not appear to be infected or swollen. The patient states that she is been taking her usual medications. She denies having any headache. She is not been exposed to COVID-19 as far she knows. ROS: See above HPI for pertinent positives & negatives. A total of 10 systems reviewed and were otherwise negative. PAST MEDICAL HISTORY: See Below PAST SURGICAL HISTORY: See Below FAMILY HISTORY: See Below SOCIAL HISTORY: See Below HOME MEDICATIONS: See Below ALLERGIES: See Below VITALS: See Below PHYSICAL EXAMINATION: GENERAL: The patient is awake and alert. The patient is somewhat anxious appearing. EYES: The conjunctivae are clear. The pupils are round and reactive. EARS, NOSE, MOUTH AND THROAT: The nose is without any evidence of any deformity. NECK: The neck is nontender and supple. RESPIRATORY: Diminished breath sounds are noted at both bases. There is no tachypnea or conversational dyspnea. CARDIOVASCULAR: Tachycardic but regular heart sounds were noted to auscultation. There is no definite murmur. GASTROINTESTINAL: The abdomen is soft. Abdomen is nontender. MUSCULOSKELETAL/EXTREMITIES: There is no evidence of gross deformity full range of motion is noted in the hips and shoulders. SKIN: Skin was warm and dry. Trace pedal edema was noted bilaterally. NEUROLOGIC: Patient is awake alert and oriented x3. MEDICAL DECISION MAKING: The patient is a 41-year-old female who presented to the emergency department for an evaluation of abnormal blood culture. The patient's been having febrile symptoms over the last few days. The patient states that he had blood cultures drawn. She does have a port in her left chest wall. The patient states that she received dialysis recently. She was called this evening because one of her blood cultures was positive. I did review her labs from [facility]. Her cultures were positive for gram-positive cocci in clusters. Given her symptoms this could represent a true bacteremia. She was treated with IV antibiotics empirically to cover gram-positive cocci. She was also treated with IV fluids. I discussed the patient's laboratory and radiographic studies with her. I also discussed this case with the on-call [facility] hospitalist. They have agreed to evaluate the patient in the emergency department for further m anagement and disposition. Triage Nursing notes reviewed. Prior medical records reviewed Vital Signs: reviewed and remarkable for fever and tachycardia as well as borderline low blood pressure. Differential diagnosis: Viral syndrome, otitis, pharyngitis, pneumonia, influenza, meningitis, urinary tract infection, sepsis, bacteremia, as well as other pathologies. ER treatment provided: See below Diagnostics interpreted by me: ECG: EKG was obtained in the emergency department. My interpretation is normal sinus rhythm at 100 bpm. There was no ectopy. Nonspecific ST segment a bnormalities were noted in the anterior leads. This was compared to a tracing from April 182020. No significant changes were noted. Cardiac Monitoring: An order was placed for continuous cardiac monitoring. The monitor shows a rate of 100 bpm with sinus rhythm. Laboratory studies: As stated above and show below. Imaging studies: See below Consultation(s): I discussed this case with Dr. Ellison [facility]. Past Med/Surg History Medical History Acute hypokalemia Anemia Heart failure with preserved ejection fraction Hepatomegaly Hypomagnesemia Pleural effusion on left Pleural effusion on right Proteinuria Pulmonary edema Family History Mother Lupus (systemic lupus erythematosus) Social History Smoking Status: Current some day smoker Tobacco Type: Cigarettes Cigarettes Per Day: 2; Hx Alcohol Use: Yes Alcohol type: beer, wine and hard liquor Hx Substance Use: Yes Last Used Substance: Days (ago) Last Used Substance Other:: 04/03/2021 medical marijuana Substance Use Type Other:: former pain killers. Is on Saboxen and medical marijuana Preferred Language: Greek Communication Ability: Effective [employer] Required: No Beliefs That Will Affect Care: None Current Living Situation: Family Current Living Situation Comment: fiancee and 2 kids Feels Safe at Home: Yes Assistive Devices: Oxygen - Continuous Allergies Allergies Allergy/AdvReac Type Severity Reaction Status Date / Time green pepper Allergy Severe Anaphylaxis Verified 04/18/21 08:12 mushroom Allergy Severe ANAPHYLAXIS Verified 04/18/21 08:12 onion Allergy Severe ANAPHYLAXIS Verified 04/18/21 08:12 tramadol Allergy Mild RASH AND Verified 04/18/21 08:12 ITCHING ketorolac Allergy Unknown RASH Verified 04/18/21 08:12 Home Meds Home Medications Medication Instructions Recorded Confirmed folic acid 1 mg tablet 1 mg PO BID 07/30/20 08/25/21 metoprolol succinate 25 mg 25 mg PO DAILY 07/30/20 08/25/21 tablet,extended release 24 hr potassium chloride 10 mEq 10 meq PO DAILY 04/04/21 08/25/21 capsule,extended release calcium carbonate 600 mg (1,500 1 tab PO DAILY 04/18/21 08/25/21 mg)-vitamin D3 400 unit tablet (Calcium 600 + D(3)) magnesium oxide 400 mg (241.3 mg 400 mg PO DAILY 04/18/21 08/25/21 magnesium) tablet buprenorphine HCl 8 mg sublingual 8 mg SUBLINGUAL DAILY 08/25/21 08/25/21 tablet enoxaparin 60 mg/0.6 mL 60 mg SUBCUT DAILY@2000 08/25/21 08/25/21 subcutaneous syringe lorazepam 0.5 mg tablet 0.5 mg PO HS PRN 08/25/21 08/25/21 prednisone 5 mg tablet 10 mg PO DAILY 08/25/21 08/25/21 Results & Data (ED) Vital Signs Vital Signs - 24 hr 08/25/21 19:58 08/25/21 20:44 08/25/21 20:45 Temperature 37.7 C H Temperature Source Oral Pulse Rate 100 H Respiratory Rate 16 Respiratory Effort / Characteristics Non-Labored Spontaneous Non-Labored Spontaneous Respiratory Depth Normal Blood Pressure 107/58 L Blood Pressure Mean 74 Blood Pressure Position Lying Pulse Oximetry 97 99 Oxygen Delivery Method Room Air Nasal Cannula Oxygen Flow Rate 2 Sepsis Recent Fever Within 48 Hours Yes Sepsis New/Unexplained Change in Mental Status N/A Sepsis Action Taken by Nursing No Action Required Home Medications Current Medication List: was personally reviewed by me Laboratory Data Attestation: I reviewed the patient's lab results. Result diagrams: 08/25/21 20:25 08/25/21 20:25 Lab Results 08/25/21 08/25/21 08/25/21 Range/Units 20:25 20:25 20:25 WBC 14.35 H (4.8-10.8) K/uL RBC 3.10 L (4.2-5.4) M/uL Hgb 10.2 L (12.0-16.0) g/dL Hct 31.7 L (37-47) % MCV 102.3 H (80-100) fL MCH 32.9 (25-34) pg MCHC 32.2 (32-36) g/dL RDW Std Deviation 88.8 H (36.4-46.3) fL RDW Coeff of Christine 23.7 H (11.5-14.5) % PT 13.5 H (9.0-12.0) Seconds INR 1.4 H (0.9-1.1) APTT 31.0 (21.0-31.0) Seconds PTT Ratio 1.2 Sodium 137 (136-145) mmol/L Potassium 3.3 L (3.5-5.1) mmol/L Chloride 104 (98-107) mmol/L Carbon Dioxide 23 (21-32) mmol/L Anion Gap 10.0 (3-11) BUN 7 (7-18) mg/dl Creatinine 2.71 H (0.6-1.2) mg/dl Est Cr Clr Drug Dosing 29.5 ml/min Est GFR ( Amer) 24.6 ml/min Est GFR (Non-Af Amer) 21.2 ml/min BUN/Creatinine Ratio 2.4 L (10-20) Glucose 82 (70-99) mg/dl Lactate (0.4-2.0) mmol/L Calcium 8.5 (8.5-10.1) mg/dl Magnesium 1.7 L (1.8-2.4) mg/dl Total Bilirubin 2.8 H (0.2-1) mg/dl AST 41 H (15-37) U/L ALT 16 (12-78) U/L Alkaline Phosphatase 220 H (45-117) U/L Troponin I < 0.015 (0-0.045) ng/ml Total Protein 6.4 (6.4-8.2) gm/dl Albumin 1.8 L (3.4-5.0) gm/dl Globulin 4.6 H (2.5-4.0) gm/dl Albumin/Globulin Ratio 0.4 L (0.9-2) Procalcitonin (0-0.5) ng/ml COVID-19 Eval Order 08/25/21 08/25/21 08/25/21 Range/Units 20:25 20:25 20:37 WBC (4.8-10.8) K/uL RBC (4.2-5.4) M/uL Hgb (12.0-16.0) g/dL Hct (37-47) % MCV (80-100) fL MCH (25-34) pg MCHC (32-36) g/dL RDW Std Deviation (36.4-46.3) fL RDW Coeff of Christine (11.5-14.5) % PT (9.0-12.0) Seconds INR (0.9-1.1) APTT (21.0-31.0) Seconds PTT Ratio Sodium (136-145) mmol/L Potassium (3.5-5.1) mmol/L Chloride (98-107) mmol/L Carbon Dioxide (21-32) mmol/L Anion Gap (3-11) BUN (7-18) mg/dl Creatinine (0.6-1.2) mg/dl Est Cr Clr Drug Dosing ml/min Est GFR ( Amer) ml/min Est GFR (Non-Af Amer) ml/min BUN/Creatinine Ratio (10-20) Glucose (70-99) mg/dl Lactate 4.6 H* (0.4-2.0) mmol/L Calcium (8.5-10.1) mg/dl Magnesium (1.8-2.4) mg/dl Total Bilirubin (0.2-1) mg/dl AST (15-37) U/L ALT (12-78) U/L Alkaline Phosphatase (45-117) U/L Troponin I (0-0.045) ng/ml Total Protein (6.4-8.2) gm/dl Albumin (3.4-5.0) gm/dl Globulin (2.5-4.0) gm/dl Albumin/Globulin Ratio (0.9-2) Procalcitonin 1.34 H (0-0.5) ng/ml COVID-19 Eval Order Covid19 at [facility] Administered Medications Discontinued Medications Ceftriaxone Sodium (Rocephin) 1,000 mg in 50 mls @ 100 mls/hr IV NOW STA Stop: 08/25/21 21:11 Last Admin: 08/25/21 20:53 Dose: 100 mls/hr Documented by: [id number] Imaging Data Radiologist's Impression: Chest X-Ray 08/25/21 20:08 XR chest 1V portable CLINICAL HISTORY: SEPSIS TECHNIQUE: Single frontal radiograph of the chest was obtained. Comparison: Comparison is made to chest one view 04/18/2021 FINDINGS: Dual lumen catheter is seen with the tip in the cavoatrial junction. The cardiomediastinal silhouette is normal. The lungs are clear. No evidence of pleural effusion or pneumothorax. IMPRESSION: No acute abnormality and in particular no evidence of pneumonia. ACT 112: Negative or not required by law. Electronically signed by: Kash Mcleod M.D. 08/25/2021 8:55 PM Discharge Plan Visit Data Chief Complaint: Abnormal Labs/Diagnostic Testing Stated Complaint: ABNORMAL BLOOD WORK ED Provider: Neo Murry Discharge Problem: Bacteremia due to Gram-positive bacteria, Fever, Acidosis, lactic Patient Disposition: Being Evaluated by Hospitalist Forms Stand Alone Forms: [facility] Free All Media Prescriptions Prescriptions: No Action folic acid 1 mg tablet 1 mg PO BID RF: 0 metoprolol succinate 25 mg tablet extended release 24 hr 25 mg PO DAILY RF: 0 potassium chloride 10 mEq capsule, extended release 10 meq PO DAILY RF: 0 enoxaparin 60 mg/0.6 mL syringe 60 mg subcut DAILY@1999 RF: 0 buprenorphine HCl 8 mg tablet, sublingual 8 mg SUBLINGUAL DAILY RF: 0 prednisone 5 mg tablet 10 mg PO DAILY RF: 0 lorazepam 0.5 mg tablet 0.5 mg PO HS PRN (Reason: Anxiety) RF: 0 calcium carbonate-vitamin D3 [Calcium 600 + D(3)] 600 mg(1,500mg) -400 unit tablet 1 tab PO DAILY RF: 0 magnesium oxide 400 mg (241.3 mg magnesium) tablet 400 mg PO DAILY RF: 0 Referrals Referrals: Andre Siegel MD [Primary Care Provider] -
[2021-08-25 20:57] LABS: Alanine Aminotransferase 16 U/L (12-78); Albumin Level 1.8 gm/dl (3.4-5.0); Aspartate Aminotransferase 41 U/L (15-37); BUN Creatinine Ratio 2.4 (10-20); Blood Urea Nitrogen 7 mg/dl (7-18); Calcium 8.5 mg/dl (8.5-10.1); Carbon Dioxide 23 mmol/L (21-32); Chloride 104 mmol/L (98-107); Creatinine Clr Calc Pharmacy 29.5 ml/min; Est GFR (African American) 24.6 ml/min; Est GFR (Non-African American) 21.2 ml/min; Glucose 82 mg/dl (70-99); Magnesium 1.7 mg/dl (1.8-2.4); Potassium 3.3 mmol/L (3.5-5.1); Sodium 137 mmol/L (136-145)
[2021-08-25 21:02] LABS: Albumin Globulin Ratio 0.4 (0.9-2); Alkaline Phosphatase 220 U/L (45-117); Bilirubin,Total 2.8 mg/dl (0.2-1); Globulin 4.6 gm/dl (2.5-4.0); Total Protein 6.4 gm/dl (6.4-8.2); Troponin I < 0.015 ng/ml (0-0.045)
[2021-08-25] MEDS ORDERED: MAGNESIUM SULFATE / D5W 1 GM/100 ML BAG IV STA (21:07)
[2021-08-25 21:08] LABS: Hematocrit (blood only) 31.7 % (37-47); Hemoglobin 10.2 g/dL (12.0-16.0); Mean Corpuscular Hemoglobin 32.9 pg (25-34); Mean Corpuscular Volume 102.3 fL (80-100); RDW Coefficient of Variation 23.7 % (11.5-14.5); RDW Standard Deviation 88.8 fL (36.4-46.3); White Blood Count 14.35 K/uL (4.8-10.8)
[2021-08-25] MEDS ORDERED: SODIUM CHLORIDE 0.9% 1000ML 1,000 ML IV ONE (21:19)
[2021-08-25 21:28] LABS: Platelet Count 129 K/uL (130-400)
[2021-08-25 21:29] LABS: Basophils # (auto) 0.02 K/uL (0-0.2); Basophils % (auto) 0.1 %; Eosinophils # (auto) 0.07 K/uL (0-0.5); Eosinophils % (auto) 0.5 %; Immature Granulocytes # (auto) 0.09 K/uL (0.00-0.02); Immature Granulocytes % (auto) 0.6 %; Lymphocytes # (auto) 0.59 K/uL (1.2-3.4); Lymphocytes % (auto) 4.1 %; Monocytes # (auto) 1.26 K/uL (0.11-0.59); Monocytes % (auto) 8.8 %; Neutrophils # (auto) 12.32 K/uL (1.4-6.5); Neutrophils % (auto) 85.9 %
[2021-08-25 21:31] LABS: Anisocytosis Present; Echinocytes 1+; Platelet Estimate Decreased (Normal); Polychromasia 1+; Target Cells 1+
[2021-08-25] MEDS ORDERED: ACETAMINOPHEN 325 MG TAB PO STA (21:40)
--- NOTE | 2021-08-25 21:40 | History & Physical Report ---
Date of Service August 25, 2021 Assessment & Plan (1) Bacteremia due to Gram-positive bacteria: (2) ESRD (end stage renal disease): (3) Chronic respiratory failure with hypoxia: (4) Cold agglutinin disease: (5) Cirrhosis: (6) Heart failure with preserved ejection fraction: Plan: History, PMH, PE, med rec completed by Angela Galindo PA-C Assessment and plan per Dr. Alonzo, see addendum History of Present Illness Chief Complaint: Abnormal labs-positive blood cultures Primary Care Provider: Andre Siegel MD Patient is 41-year-old female with complicated PMH of progressive glomerulonephritis leading to ESRD on dialysis since April-May 2021 on Saturday schedule through temporary catheter left chest wall, chronic respiratory failure with hypoxia on 3L O2, diastolic heart failure, cirrhosis, cold agglutinin disease, previously required plasmapheresis, anemia, depression, hepatitis C, left IJ TDC thrombus presented to ER for positive blood cultures. Last week reported fever and had negative outpatient blood cultures. Reports fever again 2 days ago. Outpatient blood cultures drawn 08/24/2021 and are positive for gram positive cocci. Denies cough. Patient reports generalized weakness since starting dialysis in the summer. She denies any increased shortness of breath. Denies chest pain. Patient reports is to have fistula placed to left upper extremity next week at [facility]. Reports increased abdominal girth and reports some discomfort with waist band touching abdomen but denies abdominal pain with pants off. Had outpatient US abdomen for ascites with results of Moderate volume ascites within the midline, right upper, right lower and left lower quadrants. Trace ascites within the left upper quadrant. Reports makes very small amount of urine-couple of drops a day. Denies dysuria or noted hematuria. Has been on Lovenox since 08/18/2021 for left IJ TDC thrombus. Denies nausea, vomiting, diarrhea BOOTH, dizziness, syncope, vision changes, neck pain, CP, palpitations, cough, sore throat, choking, otalgia, rhinorrhea, extremity edema, rashes. In ER T: 37.7, P: 100, R: 16, BP 107/58, 97% on 2L. WBC: 14 H/H: 09/03, PLT: 129, lactate: 4.6, procalcitonin: 1.3, negative COVID-19 PCR, CXR: No infiltrate In ER given Rocephin 1 g IV, vancomycin, 1 L NSS Allergies Allergy/AdvReac Type Severity Reaction Status Date / Time green pepper Allergy Severe Anaphylaxis Verified 08/25/21 21:23 mushroom Allergy Severe ANAPHYLAXIS Verified 08/25/21 21:23 onion Allergy Severe ANAPHYLAXIS Verified 08/25/21 21:23 tramadol Allergy Mild RASH AND Verified 08/25/21 21:23 ITCHING ketorolac Allergy Unknown RASH Verified 08/25/21 21:23 Home Medications Medication Instructions Recorded Confirmed Type folic acid 1 mg tablet 1 mg PO BID 07/30/20 08/25/21 History metoprolol succinate 25 mg 25 mg PO DAILY 07/30/20 08/25/21 History tablet,extended release 24 hr potassium chloride 10 mEq 10 meq PO DAILY 04/04/21 08/25/21 History capsule,extended release calcium carbonate 600 mg (1,500 1 tab PO DAILY 04/18/21 08/25/21 History mg)-vitamin D3 400 unit tablet (Calcium 600 + D(3)) magnesium oxide 400 mg (241.3 mg 400 mg PO DAILY 04/18/21 08/25/21 History magnesium) tablet buprenorphine HCl 8 mg sublingual 8 mg SUBLINGUAL DAILY 08/25/21 08/25/21 History tablet cyclophosphamide 25 mg tablet 75 mg PO UD 08/25/21 08/25/21 History enoxaparin 60 mg/0.6 mL 60 mg SUBCUT DAILY@2000 08/25/21 08/25/21 History subcutaneous syringe lorazepam 0.5 mg tablet 0.5 mg PO HS PRN 08/25/21 08/25/21 History omeprazole 20 mg capsule,delayed 20 mg PO DAILY 08/25/21 08/25/21 History release prednisone 5 mg tablet 10 mg PO DAILY 08/25/21 08/25/21 History sevelamer carbonate 800 mg tablet 800 mg PO TIDM 08/25/21 08/25/21 History sulfamethoxazole 800 1 tab PO UD 08/25/21 08/25/21 History mg-trimethoprim 160 mg tablet Past Med/Surg History Medical History (Updated 08/25/21 @ 22:23 by Angela Galindo PA-C) Acute hypokalemia Anemia Chronic respiratory failure with hypoxia Cirrhosis Cold agglutinin disease ESRD (end stage renal disease) Heart failure with preserved ejection fraction Hepatomegaly Hypomagnesemia Pleural effusion on left Pleural effusion on right Proteinuria Pulmonary edema Surgical History (Updated 08/25/21 @ 22:28 by Angela Galindo PA-C) History of bronchoscopy Hx of cardiac cath 08/15/2020: Right and left heart cath at [facility] Family History Mother Lupus (systemic lupus erythematosus) Social History (Updated 08/25/21 @ 22:28 by Angela Galindo PA-C) Smoking Status: Current every day smoker Tobacco Type: Cigarettes Cigarettes Per Day: 3; Hx Alcohol Use: No Hx Substance Use: Yes Last Used Substance: Unknown Last Used Substance Other:: 04/03/2021 medical marijuana Substance Use Type Other:: former pain killers. Is on Saboxen and medical marijuana Preferred Language: Latvian Communication Ability: Effective [employer] Required: No Beliefs That Will Affect Care: None Current Living Situation: Spouse Current Living Situation Comment: fiancee and 2 kids Other Information That Helps Us Care for You: No Feels Safe at Home: Yes Safety Concerns: Feels Safe At This Time Assistive Devices: Oxygen - Continuous Review of Systems Review of Systems: All systems reviewed & are unremarkable except as noted in HPI & below Physical Exam Physical Exam: General: no acute distress, chronic ill appearing Head: normocephalic, atraumatic Eyes: PERRL, EOM's intact, conjunctiva non-injected, +icteric ENT: normal inspection external ears, nose, mucous membranes moist Neck: supple, trachea midline Lungs: no respiratory distress, on 2.5L via NC, no wheezing/rhonchi/rales CV: RRR, trace pretibial edema, chest wall: Left chest with catheter in place without surrounding erythema Abd: + Distended, + ecchymosis, normal BS, firm, non-tender to palpation Ext: no cyanosis, no calf tenderness Neuro: A&O x 3, no focal deficits noted, normal affect Skin: warm, dry Results & Data Results & Data ([facility]) Vital Signs (Past 12 Hours) Vital Signs Temp Pulse Resp BP Pulse Ox 08/25/21 20:45 99 08/25/21 19:58 37.7 C H 100 H 16 107/58 L 97 Laboratory Results Short CBC 08/25/21 08/25/21 Range/Units 20:25 20:37 WBC 14.35 H (4.8-10.8) K/uL Hgb 10.2 L (12.0-16.0) g/dL Hct 31.7 L (37-47) % Plt Count 129 L (130-400) K/uL Lactate 4.6 H* (0.4-2.0) mmol/L BMP 08/25/21 20:25 Sodium 137 Potassium 3.3 L Chloride 104 Carbon Dioxide 23 BUN 7 Creatinine 2.71 H Glucose 82 Calcium 8.5 Cardiac Enzymes 08/25/21 Range/Units 20:25 Troponin I < 0.015 (0-0.045) ng/ml Liver Function 08/25/21 Range/Units 20:25 Total Bilirubin 2.8 H (0.2-1) mg/dl AST 41 H (15-37) U/L ALT 16 (12-78) U/L Alkaline Phosphatase 220 H (45-117) U/L Albumin 1.8 L (3.4-5.0) gm/dl Diagnostic Findings Chest X-Ray 08/25/21 20:08 XR chest 1V portable CLINICAL HISTORY: SEPSIS TECHNIQUE: Single frontal radiograph of the chest was obtained. Comparison: Comparison is made to chest one view 04/18/2021 FINDINGS: Dual lumen catheter is seen with the tip in the cavoatrial junction. The cardiomediastinal silhouette is normal. The lungs are clear. No evidence of pleural effusion or pneumothorax. IMPRESSION: No acute abnormality and in particular no evidence of pneumonia. ACT 112: Negative or not required by law. Electronically signed by: Kash Mcleod M.D. 08/25/2021 8:55 PM Supervising Physician Co-Signing Physician Notes IM ATTENDING : Patient seen and examined. History obtained from patient and records. Preceding documentation by Ms. Angela Galindo PA-C reviewed. 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, possible contribution from right-sided heart failure (hepatopulmonary syndrome) History left IJ catheter thrombus on daily Lovenox injections 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 Lovenox subcu Full code Text document was generated using [employer] voice recognition software. It may contain grammatical or spelling errors. Kindly contact undersigned for clarification of any documentation item in question.
[2021-08-25] MEDS ORDERED: dexAMETHasone 4 MG in SYRINGE 0 ML IV ONE (23:05)
[2021-08-25] MEDS ORDERED: DEXAMETHASONE SOD INJ 4 MG/ML VIAL IV STA (23:07)
[2021-08-25] MEDS ORDERED: LORazepam 0.5 MG TAB PO STA (23:14)
[2021-08-25] MEDS ORDERED: PROMETHAZINE HCL 12.5 MG in SODIUM CHLORIDE 0.9% 50 ML IV PRN (23:48)
[2021-08-25] MEDS: LORazepam 0.5 MG TAB PO PRN (23:57)
[2021-08-26] MEDS: ALBUMIN 25% 12.5 GM/50 ML VIAL IV SCH ×2 (01:27→01:58)
[2021-08-26] MEDS: ENOXAPARIN INJ 60 MG/0.6 ML SYR SQ SCH ×2 (01:35→21:15)
[2021-08-26 05:42] LABS: Mean Corpuscular Hgb Conc 31.8 g/dL (32-36)
[2021-08-26 05:47] LABS: Hematocrit (blood only) 25.5 % (37-47); Hemoglobin 8.1 g/dL (12.0-16.0); Mean Corpuscular Hemoglobin 32.5 pg (25-34); Mean Corpuscular Volume 102.4 fL (80-100); RDW Coefficient of Variation 23.7 % (11.5-14.5); RDW Standard Deviation 88.3 fL (36.4-46.3); Red Blood Count 2.49 M/uL (4.2-5.4); White Blood Count 9.08 K/uL (4.8-10.8)
[2021-08-26 06:00] LABS: BUN Creatinine Ratio 2.6 (10-20); Calcium 7.3 mg/dl (8.5-10.1); Creatinine Clr Calc Pharmacy 25.1 ml/min; Est GFR (African American) 20.2 ml/min; Est GFR (Non-African American) 17.4 ml/min; Potassium 3.5 mmol/L (3.5-5.1)
[2021-08-26 06:11] LABS: Thyroid Stimulating Hormone 1.6 uIu/ml (0.300-4.500)
[2021-08-26 06:13] LABS: Anisocytosis Present; Basophils # (auto) 0.01 K/uL (0-0.2); Basophils % (auto) 0.1 %; Eosinophils # (auto) 0.01 K/uL (0-0.5); Eosinophils % (auto) 0.1 %; Hypochromasia Present; Immature Granulocytes # (auto) 0.05 K/uL (0.00-0.02); Immature Granulocytes % (auto) 0.6 %; Lymphocytes % (auto) 3.3 %; Monocytes # (auto) 0.56 K/uL (0.11-0.59); Monocytes % (auto) 6.2 %; Neutrophils # (auto) 8.15 K/uL (1.4-6.5); Neutrophils % (auto) 89.7 %; Platelet Count 89 K/uL (130-400); Platelet Estimate Decreased (Normal); Target Cells 1+
[2021-08-26] MEDS: SEVELAMER HCL 800 MG TABLET PO SCH ×3 (07:28→18:18)
[2021-08-26] MEDS: CALCIUM 600MG + VIT D 400 IU TAB PO SCH (07:28)
[2021-08-26] MEDS: FOLIC ACID 1 MG TAB PO SCH ×2 (07:28→21:16)
[2021-08-26] MEDS: PANTOprazole 40 MG TAB PO SCH (07:29)
[2021-08-26] MEDS: predniSONE 10 MG TABLET PO SCH (07:29)
[2021-08-26] MEDS ORDERED: Nursing to Pharmacy Communication SCH ×2 (08:45→16:00)
[2021-08-26] MEDS ORDERED: buprenorphine HCL 8 MG SUBL SL SCH ×2 (09:00→12:00)
--- NOTE | 2021-08-26 09:23 | Nephrology Consultation ---
Date of Consultation August 26, 2021 Assessment & Plan (1) ESRD (end stage renal disease): Last dialyzed on saturday Electrolytes are safe Blood pressure has been soft in late 90s and early 100, was given 1 L of normal saline and albumin. Looks pretty comfortble Need to be careful with the fluids, as she is a dialysis patient. Low threshold for starting her on pressor support. At the present , hold on removing the TDC. Wait for the final cultures report from the dialysis center and the one send from ER. - continue on Vnacomycin and Cefepime for now. - Please continue on steroids ( She is on 10 mg, reducing dose) - withhold metoprolol for now. , (2) Bacteremia due to Gram-positive bacteria: above (3) Cirrhosis: History of Present Illness Reason for Consultation: ESRD ON HD Attending Physician: Alexei Rivas MD History of Present Illness This is 41-year-old lady, ESRD on HD Saturday,(history RPGN/atypical anti-GBM disease) on cyclophosphamide and prednisone regimen on Bactrim for PJP prophylaxis)present[facility] She reports of intermittent fever over the last 1 week with increasing abdominal girth discomfort. Other past medical history includes chronic respiratory failure on 2 L oxygen diastolic heart failure, cirrhosis, anemia left IJ TDC thrombosis(on anticoagulation,lovenox). She is due EGD and AVf placement next week. Comfortable at rest when examined today no nausea, vomiting, diarrhea, dizziness, syncope, palpitations, cough or lower extremity edema. Last dialysis was on Saturday.In ER her blood pressure was 107/ 58 with durations of 97% on 2 L White cell count was raised at 14 with a raised lactate. Allergies Allergy/AdvReac Type Severity Reaction Status Date / Time green pepper Allergy Severe Anaphylaxis Verified 08/25/21 21:23 mushroom Allergy Severe ANAPHYLAXIS Verified 08/25/21 21:23 onion Allergy Severe ANAPHYLAXIS Verified 08/25/21 21:23 tramadol Allergy Mild RASH AND Verified 08/25/21 21: ITCHING ketorolac Allergy Unknown RASH Verified 08/25/21 21: Home Medications Medication Instructions Recorded Confirmed Type folic acid 1 mg tablet 1 mg PO BID 07/30/20 08/25/21 History metoprolol succinate 25 mg 25 mg PO DAILY 07/30/20 08/25/21 History tablet,extended release 24 hr potassium chloride 10 mEq 10 meq PO DAILY 04/04/21 08/25/21 History capsule,extended release calcium carbonate 600 mg (1,500 1 tab PO DAILY 04/18/21 08/25/21 History mg)-vitamin D3 400 unit tablet (Calcium 600 + D(3)) magnesium oxide 400 mg (241.3 mg 400 mg PO DAILY 04/18/21 08/25/21 History magnesium) tablet buprenorphine HCl 8 mg sublingual 8 mg SUBLINGUAL DAILY 08/25/21 08/25/21 History tablet cyclophosphamide 25 mg tablet 75 mg PO UD 08/25/21 08/25/21 History enoxaparin 60 mg/0.6 mL 60 mg SUBCUT DAILY@199908/25/21 08/25/21 History subcutaneous syringe lorazepam 0.5 mg tablet 0.5 mg PO HS PRN 08/25/21 08/25/21 History omeprazole 20 mg capsule,delayed 20 mg PO DAILY 08/25/21 08/25/21 History release prednisone 5 mg tablet 10 mg PO DAILY 08/25/21 08/25/21 History sevelamer carbonate 800 mg tablet 800 mg PO TIDM 08/25/21 08/25/21 History sulfamethoxazole 800 1 tab PO UD 08/25/21 08/25/21 History mg-trimethoprim 160 mg tablet Patient History Medical History (Updated 08/25/21 @ 22:23 by Angela Galinod PA-C) Acute hypokalemia Anemia Chronic respiratory failure with hypoxia Cirrhosis Cold agglutinin disease ESRD (end stage renal disease) Heart failure with preserved ejection fraction Hepatomegaly Hypomagnesemia Pleural effusion on left Pleural effusion on right Proteinuria Pulmonary edema Surgical History (Updated 08/25/21 @ 22:28 by Angela Galindo PA-C) History of bronchoscopy Hx of cardiac cath 08/15/2020: Right and left heart cath [place] [facility] [place] Family History Mother Lupus (systemic lupus erythematosus) Social History (Updated 08/25/21 @ 22:28 by Angela Galindo PA-C) Smoking Status: Current every day smoker Tobacco Type: Cigarettes Cigarettes Per Day: 3; Hx Alcohol Use: No Hx Substance Use: Yes Last Used Substance: Unknown Last Used Substance Other:: 04/03/2021 medical marijuana Substance Use Type Other:: former pain killers. 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 Physical Exam Physical Exam: General: no acute distress, comfortable. Head: normocephalic, atraumatic Eyes: PERRL, EOM's intact, conjunctiva non-injected, +icteric ENT: normal inspection external ears, nose, mucous membranes moist Neck: supple, trachea midline, TDC on left chest, no discharge, no erythema, no tenderness. Lungs: no respiratory distress,no wheezing/rhonchi/rales CV: RRR, trace pretibial edema, chest wall: Left chest with catheter in place without surrounding erythema Abd: + Distended, + ecchymosis, normal BS, firm, non-tender to palpation Ext: no cyanosis, no calf tenderness Neuro: A&O x 3, no focal deficits noted, normal affect Skin: warm, dry Results & Data ([facility]) Vital Signs (Past 12 Hours) Vital Signs Temp Pulse Resp BP Pulse Ox 08/26/21 07:17 36.5 C 84 18 96/55 L 100 08/26/21 04:00 36.7 C 86 16 90/56 L 95 08/26/21 01:06 37 C 96 H 16 94/56 L 100 08/25/21 23:45 97 H 20 82/54 L 98 08/25/21 22:34 100 H 22 95/55 L 100 Laboratory Results 08/26/21 05:34 08/26/21 05:34
[2021-08-26] MEDS: DAPTOmycin 325 MG in SYRINGE 0 ML IV SCH (09:26)
[2021-08-26] MEDS ORDERED: PNEUMOCOCCAL POLYSACCHARIDES 25 MCG/0.5 ML VIAL/SYR IM ONE (10:00)
--- NOTE | 2021-08-26 14:05 | Electrocardiogram Report ---
Test Reason : Blood Pressure : / mmHG Vent. Rate : 100 BPM Atrial Rate : 100 BPM P-R Int : 134 ms QRS Dur : 066 ms QT Int : 350 ms P-R-T Axes : 050 013 037 degrees QTc Int : 451 ms Poor data quality, interpretation may be adversely affected Normal sinus rhythm Possible Left atrial enlargement Borderline ECG When compared with ECG of 25-AUG-2021 20:27, (unconfirmed) No significant change was found Confirmed by Neo Pollock ([id number]) on 08/26/2021 2:05:35 PM Referred By: Lillie Tolliver Confirmed By:Neo Pollock
--- NOTE | 2021-08-26 14:05 | Electrocardiogram Report ---
Test Reason : Blood Pressure : / mmHG Vent. Rate : 100 BPM Atrial Rate : 100 BPM P-R Int : 130 ms QRS Dur : 062 ms QT Int : 332 ms P-R-T Axes : 041 007 034 degrees QTc Int : 428 ms Poor data quality, interpretation may be adversely affected Normal sinus rhythm Low voltage QRS Nonspecific ST and T wave abnormality Abnormal ECG When compared with ECG of 18-APR-2021 06:49, ST now depressed in Anterior leads Confirmed by Neo Pollock ([id number]) on 08/26/2021 2:05:30 PM Referred By: Lillie Tolliver Confirmed By:Neo Pollock
[2021-08-26] MEDS: LORazepam 0.5 MG TAB PO PRN (15:57)
[2021-08-26] MEDS: buprenorphine HCL 8 MG SUBL SL SCH (17:45)
--- NOTE | 2021-08-26 18:00 | Gastrointestinal Consultation ---
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 Pt reports progressive abd distention, but unsure duration. She has a ? dx of NAFLD cirrhosis, with longstanding tpenia and AST>ALT, but I cannot find prior record of significant ascites on prior imaging studies; she is HCV ab pos/RNA neg, MICHAEL neg, but o/w I cannot find prior serologic w/u of liver disease. PE: Comfortable, NAD Abd: moderately distended, dull, non tender. Labs reviewed. A/P: Ascites - Please arrange for therapeutic paracentesis on Saturday, with fluid studies to check SAAG and screen for SBP. She has follow up with hepatology in September as outpt for further w/u liver disase. Allergies Allergy/AdvReac Type Severity Reaction Status Date / Time green pepper Allergy Severe Anaphylaxis Verified 08/25/21 21:23 mushroom Allergy Severe ANAPHYLAXIS Verified 08/25/21 21:23 onion Allergy Severe ANAPHYLAXIS Verified 08/25/21 21:23 tramadol Allergy Mild RASH AND Verified 08/25/21 21:23 ITCHING ketorolac Allergy Unknown RASH Verified 08/25/21 21:23 Home Medications Medication Instructions Recorded Confirmed Type folic acid 1 mg tablet 1 mg PO BID 07/30/20 08/25/21 History metoprolol succinate 25 mg 25 mg PO DAILY 07/30/20 08/25/21 History tablet,extended release 24 hr potassium chloride 10 mEq 10 meq PO DAILY 04/04/21 08/25/21 History capsule,extended release calcium carbonate 600 mg (1,500 1 tab PO DAILY 04/18/21 08/25/21 History mg)-vitamin D3 400 unit tablet (Calcium 600 + D(3)) magnesium oxide 400 mg (241.3 mg 400 mg PO DAILY 04/18/21 08/25/21 History magnesium) tablet buprenorphine HCl 8 mg sublingual 8 mg SUBLINGUAL DAILY 08/25/21 08/25/21 History tablet cyclophosphamide 25 mg tablet 75 mg PO UD 08/25/21 08/25/21 History enoxaparin 60 mg/0.6 mL 60 mg SUBCUT DAILY@199908/25/21 08/25/21 History subcutaneous syringe lorazepam 0.5 mg tablet 0.5 mg PO HS PRN 08/25/21 08/25/21 History omeprazole 20 mg capsule,delayed 20 mg PO DAILY 08/25/21 08/25/21 History release prednisone 5 mg tablet 10 mg PO DAILY 08/25/21 08/25/21 History sevelamer carbonate 800 mg tablet 800 mg PO TIDM 08/25/21 08/25/21 History sulfamethoxazole 800 1 tab PO UD 08/25/21 08/25/21 History mg-trimethoprim 160 mg tablet Patient History Medical History (Updated 08/25/21 @ 22:23 by Angela Galindo PA-C) Acute hypokalemia Anemia Chronic respiratory failure with hypoxia Cirrhosis Cold agglutinin disease ESRD (end stage renal disease) Heart failure with preserved ejection fraction Hepatomegaly Hypomagnesemia Pleural effusion on left Pleural effusion on right Proteinuria Pulmonary edema Surgical History (Updated 08/25/21 @ 22:28 by Angela Galindo PA-C) History of bronchoscopy Hx of cardiac cath 08/15/2020: Right and left heart cath at [facility] [place] Family History Mother Lupus (systemic lupus erythematosus) Social History (Updated 08/25/21 @ 22:28 by Angela Galindo PA-C) Smoking Status: Current every day smoker Tobacco Type: Cigarettes Cigarettes Per Day: 3; Hx Alcohol Use: No Hx Substance Use: Yes Last Used Substance: Unknown Last Used Substance Other:: 04/03/2021 medical marijuana Substance Use Type Other:: former pain killers. Is on Saboxen and medical marijuana Preferred Language: Amharic Communication Ability: Effective Levelman Required: No Beliefs That Will Affect Care: None Current Living Situation: Spouse Current Living Situation Comment: fiancee and 2 kids Other Information That Helps Us Care for You: No Feels Safe at Home: Yes Safety Concerns: Feels Safe At This Time Assistive Devices: None Results & Data ([facility]) Vital Signs (Past 12 Hours) Vital Signs Temp Pulse Pulse Pulse Resp BP Pulse Ox 08/26/21 16:32 92 H 08/26/21 16:01 36.5 C 20 100 08/26/21 16:00 88 08/26/21 15:38 36.5 C 88 20 100/66 100 08/26/21 12:00 36.9 C 85 18 91/62 L 99 08/26/21 07:17 36.5 C 84 18 96/55 L 100
--- NOTE | 2021-08-26 18:46 | Hospitalist Progress Note ---
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 on dialysis since April-May 2021 on Saturday schedule through temporary catheter left chest wall, chronic respiratory failure with hypoxia on 3L O2, diastolic heart failure, cirrhosis, cold agglutinin disease, previously required plasmapheresis, anemia, depression, hepatitis C, left IJ TDC thrombus presented to ER for positive blood cultures that was drawn in HD Bacteremia Blood culture grew grew Staph epidermidis staphylococcus epidermidis DNA by PCR Negative Positive mecA/C (Methacillin Resistance Genes) Negative Positive She was started on daptomycin Repeat blood culture pending Patient has a temporal left chest wall catheter for dialysis. if repeat blood culture positive, will need to remove the TDC Will consider ID consult Continue monitor closely Ascites Denies any previous paracentesis in the past Gastro on board Will need therapeutic paracentesis with fluid studies to check SAAG and screen for SBP. ESRD Progressive glomerulonephritis leading to ESRD Prednisone 10 mg daily, will taper to 5 mg on Saturday Last hemodialysis was on Saturday Nephrology on board Left IJ TDC thrombus. She has been on Lovenox since 08/18/2021 Monitor hemoglobin Stable Chronic respiratory failure Continue oxygen supplement, baseline Stable Diastolic CHF: Fluid management during dialysis Stable Anemia: cold Agglutinins related anemia - Hx of being on rituxan therapy and plasmapheresis Hemoglobin 8.1 Anxiety and depression: anxiety, PTSD, fear of going to appointments. Stable Obesity (BMI 30.0-34.9): Diet and exercise encouraged Monitor with titration up of SSRI PCOS (polycystic ovarian syndrome): Stable, has 2 children, boys, ages 4 and 6. DVT ppx Lovenox CODE: Full Admission and Anticipated Discharge Date Admission Date: August 25, 2021 Subjective Patient was seen and evaluated of abnormal blood culture Patient said that she was sent to the ER after a call from the lab due to gram- positive cocci in blood She said she had the blood cx done because she was having increased fluid retention in her belly, abdominal discomfort and low-grade fever Said that she never had any paracentesis done in the past last dialysis was yesterday (Saturday) Denies any chest pain, palpitation, dizziness, shortness of breath. Review of Systems Review of Systems: All systems reviewed & are unremarkable except as noted in Subjective Physical Exam Physical Exam: General- No acute distress Head- atraumatic Eyes- PERRL, EOMI, ENT- Poor dentition Neck- supple, no JVD Lungs- No wheezing, No crackle Heart- regular rhythm; no murmur Abdomen- normal bowel sounds, +ascites, +distended, Ecchymosis, Left chest with catheter in place without surrounding erythema Extremities- no calf tenderness, Neuro- alert, oriented x 3; PERRL, EOMI; no facial palsy; no dysarthria Skin- warm & dry Results & Data Results & Data ([facility]) Vital Signs (Past 12 Hours) Vital Signs Temp Pulse Pulse Pulse Resp BP Pulse Ox 08/26/21 16:32 92 H 08/26/21 16:01 36.5 C 20 100 08/26/21 16:00 88 08/26/21 15:38 36.5 C 88 20 100/66 100 08/26/21 12:00 36.9 C 85 18 91/62 L 99 08/26/21 07:17 36.5 C 84 18 96/55 L 100
[2021-08-26 18:52] LABS: Appearance Urine Turbid (Clear); Bacteria Urine Automated Negative (Negative); Blood Urine 2+ (Negative); Epithelial Cell Urine Auto >30 /lpf (0-5); Glucose Urine UA Negative (Negative); Ketones Urine Negative (Negative); Leukocyte Esterase Urine 3+ (Negative); Nitrite Urine Positive (Negative); Protein Urine 2+ (Negative); Specific Gravity Urine 1.026 (1.000-1.030); Urobilinogen Urine Negative (Negative); WBC Urine Automated >30 /hpf (0-5); pH Urine 5.5 (4.5-7.5)
[2021-08-26 18:53] LABS: Bilirubin Urine 2+ (Negative)
[2021-08-26 18:54] LABS: Color Urine Brown
[2021-08-26 19:10] LABS: Cast Urine Automated 0 /lpf (0-5)
[2021-08-26] MEDS ORDERED: LORazepam 0.5 MG TAB PO STA (21:07)
[2021-08-27 07:10] LABS: Mean Corpuscular Hgb Conc 31.1 g/dL (32-36)
[2021-08-27 07:38] LABS: Hematocrit (blood only) 26.7 % (37-47); Hemoglobin 8.3 g/dL (12.0-16.0); Mean Corpuscular Hemoglobin 32.8 pg (25-34); Mean Corpuscular Volume 105.5 fL (80-100); RDW Coefficient of Variation 23.7 % (11.5-14.5); RDW Standard Deviation 91.6 fL (36.4-46.3); Red Blood Count 2.53 M/uL (4.2-5.4); White Blood Count 10.36 K/uL (4.8-10.8)
[2021-08-27 07:40] LABS: Platelet Count 106 K/uL (130-400)
[2021-08-27 07:41] LABS: Platelet Estimate Decreased (Normal)
[2021-08-27 07:44] LABS: Albumin Level 1.5 gm/dl (3.4-5.0); BUN Creatinine Ratio 3.2 (10-20); Calcium 7.5 mg/dl (8.5-10.1); Creatinine Clr Calc Pharmacy 18.4 ml/min; Est GFR (African American) 14.2 ml/min; Est GFR (Non-African American) 12.3 ml/min; Potassium 3.8 mmol/L (3.5-5.1)
[2021-08-27 07:50] LABS: Albumin Globulin Ratio 0.4 (0.9-2); Bilirubin,Total 1.2 mg/dl (0.2-1); Globulin 3.8 gm/dl (2.5-4.0); Total Protein 5.3 gm/dl (6.4-8.2)
[2021-08-27] MEDS: PANTOprazole 40 MG TAB PO SCH (09:46)
[2021-08-27] MEDS: predniSONE 10 MG TABLET PO SCH (09:46)
[2021-08-27] MEDS: FOLIC ACID 1 MG TAB PO SCH ×2 (09:47→20:45)
[2021-08-27] MEDS: CALCIUM 600MG + VIT D 400 IU TAB PO SCH (09:47)
[2021-08-27] MEDS: SEVELAMER HCL 800 MG TABLET PO SCH ×3 (09:47→17:16)
--- NOTE | 2021-08-27 11:08 | Nephrology Progress Note ---
Date of Service August 27, 2021 Assessment & Plan (1) ESRD (end stage renal disease): Plan: Last dialyzed on saturday Electrolytes are safe Blood pressure has been soft in late s and early 100,symptomatic Need to be careful with the fluids, as she is a dialysis patient. Next dialysis will be Saturday. , (2) Bacteremia due to Gram-positive bacteria: Plan: -Bacteremia Blood culture grew grew Staph epidermidis staphylococcus epidermidis DNA by PCR She was started on daptomycin Repeat blood culture pending if repeat blood culture positive, will need to remove the TDC - Agree with ID consult.. (3) Cirrhosis: Plan: As per LEANDRO rojas paracentesis on Saturday. Admission and Anticipated Discharge Date Admission Date: August 25, 2021 Subjective Comfortable Denies any chest pain, palpitation, dizziness, shortness of breath. Review of Systems Review of Systems: All systems reviewed & are unremarkable except as noted in HPI & below Physical Exam Physical Exam: General: no acute distress, comfortable. Head: normocephalic, atraumatic Eyes: PERRL, EOM's intact, conjunctiva non-injected, +icteric ENT: normal inspection external ears, nose, mucous membranes moist Neck: supple, trachea midline, TDC on left chest, no discharge, no erythema, no tenderness. Lungs: no respiratory distress,no wheezing/rhonchi/rales CV: RRR, trace pretibial edema, chest wall: Left chest with catheter in place without surrounding erythema Abd: + Distended, + ecchymosis, normal BS, firm, non-tender to palpation Ext: no cyanosis, no calf tenderness Neuro: A&O x 3, no focal deficits noted, normal affect Skin: warm, dry Results & Data ([facility]) Vital Signs (Past 12 Hours) Vital Signs Temp Pulse Pulse Resp BP Pulse Ox 08/27/21 07:56 36.4 C L 82 20 95/67 L 94 08/27/21 07:28 79 08/27/21 03:58 36.7 C 82 18 93/55 L 98 08/26/21 23:49 36.8 C 83 19 96/60 L 98 Laboratory Results 08/27/21 05:50 08/27/21 05:50
--- NOTE | 2021-08-27 11:54 | Gastrointestinal Consultation ---
Date of Consultation August 27, 2021 History of Present Illness Attending Physician: Alexei Rivas MD History of Present Illness No events overnight, no new complaints. On exam, she appears comfortable, with stable abd distention A/P: Plan therapeutic/dx paracentesis tomorrow. Consider liver imgaing, if nephrology ok with this. Allergies Allergy/AdvReac Type Severity Reaction Status Date / Time green pepper Allergy Severe Anaphylaxis Verified 08/25/21 21:23 mushroom Allergy Severe ANAPHYLAXIS Verified 08/25/21 21:23 onion Allergy Severe ANAPHYLAXIS Verified 08/25/21 21:23 tramadol Allergy Mild RASH AND Verified 08/25/21 21:23 ITCHING ketorolac Allergy Unknown RASH Verified 08/25/21 21:23 Home Medications Medication Instructions Recorded Confirmed Type folic acid 1 mg tablet 1 mg PO BID 07/30/20 08/25/21 History metoprolol succinate 25 mg 25 mg PO DAILY 07/30/20 08/25/21 History tablet,extended release 24 hr potassium chloride 10 mEq 10 meq PO DAILY 04/04/21 08/25/21 History capsule,extended release calcium carbonate 600 mg (1,500 1 tab PO DAILY 04/18/21 08/25/21 History mg)-vitamin D3 400 unit tablet (Calcium 600 + D(3)) magnesium oxide 400 mg (241.3 mg 400 mg PO DAILY 04/18/21 08/25/21 History magnesium) tablet buprenorphine HCl 8 mg sublingual 8 mg SUBLINGUAL DAILY 08/25/21 08/25/21 History tablet cyclophosphamide 25 mg tablet 75 mg PO UD 08/25/21 08/25/21 History enoxaparin 60 mg/0.6 mL 60 mg SUBCUT DAILY@199908/25/21 08/25/21 History subcutaneous syringe lorazepam 0.5 mg tablet 0.5 mg PO HS PRN 08/25/21 08/25/21 History omeprazole 20 mg capsule,delayed 20 mg PO DAILY 08/25/21 08/25/21 History release prednisone 5 mg tablet 10 mg PO DAILY 08/25/21 08/25/21 History sevelamer carbonate 800 mg tablet 800 mg PO TIDM 08/25/21 08/25/21 History sulfamethoxazole 800 1 tab PO UD 08/25/21 08/25/21 History mg-trimethoprim 160 mg tablet Patient History Medical History (Updated 08/25/21 @ 22:23 by Angela Galindo PA-C) Acute hypokalemia Anemia Chronic respiratory failure with hypoxia Cirrhosis Cold agglutinin disease ESRD (end stage renal disease) Heart failure with preserved ejection fraction Hepatomegaly Hypomagnesemia Pleural effusion on left Pleural effusion on right Proteinuria Pulmonary edema Surgical History (Updated 08/25/21 @ 22:28 by Angela Galindo PA-C) History of bronchoscopy Hx of cardiac cath 08/15/2020: Right and left heart cath at [facility] [place] Family History Mother Lupus (systemic lupus erythematosus) Social History (Updated 08/25/21 @ 22:28 by Angela Galindo PA-C) Smoking Status: Current every day smoker Tobacco Type: Cigarettes Cigarettes Per Day: 3; Hx Alcohol Use: No Hx Substance Use: Yes Last Used Substance: Unknown Last Used Substance Other:: 04/03/2021 medical marijuana Substance Use Type Other:: former pain killers. 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
[2021-08-27] MEDS: buprenorphine HCL 8 MG SUBL SL SCH (17:16)
[2021-08-27] MEDS: ENOXAPARIN INJ 60 MG/0.6 ML SYR SQ SCH (20:45)
[2021-08-27] MEDS: LORazepam 0.5 MG TAB PO PRN (20:45)
--- NOTE | 2021-08-27 23:56 | Hospitalist Progress Note ---
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 on dialysis since April-May 2021 on Saturday schedule through temporary catheter left chest wall, chronic respiratory failure with hypoxia on 3L O2, diastolic heart failure, cirrhosis, cold agglutinin disease, previously required plasmapheresis, anemia, depression, hepatitis C, left IJ TDC thrombus presented to ER for positive blood cultures that was drawn in HD Bacteremia Blood culture grew grew Staph epidermidis staphylococcus epidermidis DNA by PCR Negative Positive mecA/C (Methacillin Resistance Genes) Negative Positive She was started on daptomycin Repeat blood culture pending Patient has a temporal left chest wall catheter for dialysis. if repeat blood culture positive, will need to remove the TDC Will consider ID consult Continue monitor closely Ascites Denies any previous paracentesis in the past Gastro on board Will need therapeutic paracentesis with fluid studies to check SAAG and screen for SBP. Case discussed with GI, plan to order CT abdomen with contrast (spoke with nephrology and okay with the imaging with contrast) ESRD Progressive glomerulonephritis leading to ESRD Prednisone 10 mg daily, will taper to 5 mg on Saturday Last hemodialysis was on Saturday, hemodialysis on Saturday Nephrology on board Left IJ TDC thrombus. She has been on Lovenox since 08/18/2021 Monitor hemoglobin Stable Chronic respiratory failure Continue oxygen supplement, baseline Stable Diastolic CHF: Fluid management during dialysis Stable Anemia: cold Agglutinins related anemia - Hx of being on rituxan therapy and plasmapheresis Hemoglobin 8.1 Anxiety and depression: anxiety, PTSD, fear of going to appointments. Stable Obesity (BMI 30.0-34.9): Diet and exercise encouraged Monitor with titration up of SSRI PCOS (polycystic ovarian syndrome): Stable, has 2 children, boys, ages 4 and 6. DVT ppx Lovenox CODE: Full Admission and Anticipated Discharge Date Admission Date: August 25, 2021 Subjective Patient was seen and evaluated of abnormal blood culture she said that she did not sleep well last night due to her anxiety Denies any chest pain, palpitation, dizziness, shortness of breath. Review of Systems Review of Systems: All systems reviewed & are unremarkable except as noted in Subjective Physical Exam Physical Exam: General- No acute distress Head- atraumatic Eyes- PERRL, EOMI, ENT- Poor dentition Neck- supple, no JVD Lungs- No wheezing, No crackle Heart- regular rhythm; no murmur Abdomen- normal bowel sounds, +ascites, +distended, Ecchymosis, Left chest with catheter in place without surrounding erythema Extremities- no calf tenderness, Neuro- alert, oriented x 3; PERRL, EOMI; no facial palsy; no dysarthria Skin- warm & dry Results & Data Results & Data ([facility]) Vital Signs (Past 12 Hours) Vital Signs Temp Pulse Pulse Pulse Resp BP Pulse Ox 08/27/21 23:50 36.7 C 79 17 112/76 100 08/27/21 19:09 36.5 C 79 19 112/74 100 08/27/21 15:58 36.5 C 77 17 106/74 100 08/27/21 15:43 85
[2021-08-28 01:25] LABS: Albumin Globulin Ratio 0.4 (0.9-2); Albumin Level 1.6 gm/dl (3.4-5.0); BUN Creatinine Ratio 3.5 (10-20); Bilirubin,Total 1.3 mg/dl (0.2-1); Calcium 7.9 mg/dl (8.5-10.1); Creatinine Clr Calc Pharmacy 15.8 ml/min; Est GFR (African American) 11.8 ml/min; Est GFR (Non-African American) 10.2 ml/min; Globulin 3.7 gm/dl (2.5-4.0); Total Protein 5.3 gm/dl (6.4-8.2)
[2021-08-28 06:28] LABS: Mean Corpuscular Hgb Conc 31.6 g/dL (32-36)
[2021-08-28 06:37] LABS: INR 1.4 (0.9-1.1); Prothrombin Time 13.7 Seconds (9.0-12.0)
[2021-08-28 06:51] LABS: Hematocrit (blood only) 28.2 % (37-47); Hemoglobin 8.9 g/dL (12.0-16.0); Mean Corpuscular Hemoglobin 32.6 pg (25-34); Mean Corpuscular Volume 103.3 fL (80-100); Platelet Count 128 K/uL (130-400); Platelet Estimate Decreased (Normal); RDW Coefficient of Variation 23.6 % (11.5-14.5); RDW Standard Deviation 89.3 fL (36.4-46.3); Red Blood Count 2.73 M/uL (4.2-5.4); White Blood Count 9.41 K/uL (4.8-10.8)
--- NOTE | 2021-08-28 08:09 | Gastroenterology Progress Note ---
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 Pt reports progressive abd distention of unclear duration. After tap today she feels better. She has a ? dx of NAFLD cirrhosis, with longstanding thrombocytopenia and AST>ALT. H/o HCV ab pos/RNA neg, MICHAEL neg. Previous imaging suggested CBD dilation of 1.1 cm and she is supposed to have EUS later this week. - Had paracentesis today - Please send fluid studies to check SAAG and screen for SBP. She has follow up with hepatology in September as outpt for further w/u liver disease. - We can arrange EGD/EUS-guided liver biopsy to be done for her tomorrow; will ask that her Lovenox be held starting now and will make her NPO after midnight - Low NA diet < 2 gm daily - Avoid Tylenol > 2 gm daily - Avoid ETOH use and other hepatotoxins Thank you for allowing us to participate in the care of this patient. Please call with any acute changes, questions or concerns. Please see addendum below with additional recommendation from my supervising physician. Admission and Anticipated Discharge Date Admission Date: August 25, 2021 Supervising Physician Co-Signing Physician Notes I saw and evaluated the patient. We were consulted for evaluation of ascites and a question of underlying liver disease. The patient was scheduled to be seen for outpatient endoscopic ultrasound and liver biopsy later this week. As she is presently admitted we will try to make arrangements for EUS guided liver biopsy during the hospital admission. Please leave the patient n.p.o. at midnight stop the Lovenox today avoid use of antiplatelet agents. With regard to her ascites would suggest that she be given albumin given the paracentesis was greater than 5 L. Subjective Patient seen and examined, chart reviewed. No acute events overnight. She under went 5.3 L paracentesis this AM. Currently no GI complaints. No abd pain, n/v, melena, hematochezia, hematemesis, CP, SOB. She states she is scheduled for EUS-liver biopsy on Saturday. Review of Systems Review of Systems: All systems reviewed & are unremarkable except as noted in Subjective Physical Exam Constitutional: Chronically ill; NAD Eyes: anicteric sclera Respiratory: normal respiratory effort, lungs clear to auscultation Cardiovascular: RRR, no murmur, no edema Gastrointestinal (Abdomen): mild ascites; nontender, a few ecchymotic areas from Lovenox injections; BS x 4 quads Skin: no rashes, warm and dry Neurologic: no asterixis Psychiatric: A+Ox3, euthymic affect Results & Data ([facility]) Vital Signs (Past 12 Hours) Vital Signs Temp Pulse Pulse Resp BP Pulse Ox 08/28/21 07:56 36.7 C 83 18 103/71 100 08/28/21 04:17 36.5 C 76 15 101/68 100 08/27/21 23:50 36.7 C 79 17 112/76 100 Laboratory Results 08/28/21 08/28/21 08/28/21 Range/Units 05:55 05:55 00:42 WBC 9.41 (4.8-10.8) K/uL RBC 2.73 L (4.2-5.4) M/uL Hgb 8.9 L (12.0-16.0) g/dL Hct 28.2 L (37-47) % MCV 103.3 H (80-100) fL MCH 32.6 (25-34) pg MCHC 31.6 L (32-36) g/dL RDW Std Deviation 89.3 H (36.4-46.3) fL RDW Coeff of Christine 23.6 H (11.5-14.5) % Plt Count 128 L (130-400) K/uL MPV 12.0 H (7.4-10.4) fL Platelet Estimate Decreased L (Normal) PT 13.7 H (9.0-12.0) Seconds INR 1.4 H (0.9-1.1) Sodium 139 (136-145) mmol/L Potassium 4.0 (3.5-5.1) mmol/L Chloride 107 (98-107) mmol/L Carbon Dioxide 24 (21-32) mmol/L Anion Gap 8.0 (3-11) BUN 17 (7-18) mg/dl Creatinine 4.97 H* D (0.6-1.2) mg/dl Est Cr Clr Drug Dosing 15.8 ml/min Est GFR ( Amer) 11.8 ml/min Est GFR (Non-Af Amer) 10.2 ml/min BUN/Creatinine Ratio 3.5 L (10-20) Glucose 87 (70-99) mg/dl Calcium 7.9 L (8.5-10.1) mg/dl Total Bilirubin 1.3 H (0.2-1) mg/dl AST 34 (15-37) U/L ALT 16 (12-78) U/L Alkaline Phosphatase 166 H (45-117) U/L Total Protein 5.3 L (6.4-8.2) gm/dl Albumin 1.6 L (3.4-5.0) gm/dl Globulin 3.7 (2.5-4.0) gm/dl Albumin/Globulin Ratio 0.4 L (0.9-2) Diagnostic Findings US ABD for paracentesis: IMPRESSION: Successful ultrasound-guided paracentesis with removal of 5.3 L ascitic fluid.
[2021-08-28] MEDS: SEVELAMER HCL 800 MG TABLET PO SCH ×3 (08:32→19:14)
[2021-08-28] MEDS: DAPTOmycin 325 MG in SYRINGE 0 ML IV SCH (08:33)
[2021-08-28] MEDS: LORazepam 0.5 MG TAB PO PRN ×2 (08:33→21:15)
[2021-08-28] MEDS: SULFAMETHOXAZOLE/TRIMETHOPRIM DS 800/160MG TAB PO SCH (08:35)
[2021-08-28] MEDS: predniSONE 10 MG TABLET PO SCH (08:35)
[2021-08-28] MEDS: FOLIC ACID 1 MG TAB PO SCH ×2 (08:36→21:15)
[2021-08-28] MEDS: CALCIUM 600MG + VIT D 400 IU TAB PO SCH (08:36)
[2021-08-28] MEDS: PANTOprazole 40 MG TAB PO SCH (08:36)
--- NOTE | 2021-08-28 10:31 | Ultrasound Report ---
US paracentesis abd w/image CLINICAL HISTORY: 41 years-old Female with Ascites. Chronic liver disease with ascites COMPARISON: CT abdomen and pelvis 07/30/2020 PROCEDURE: The procedure was explained to the patient in the care including the benefits and possible risks/complications. The patient gave verbal understanding and written consent was obtained. A time -out was performed prior to the start of the procedure. The patient was placed on the ultrasound table in the supine position. Using ultrasound guidance, an appropriate procedure site in the left lower abdomen was marked. This area was then prepped and drape d in the usual sterile fashion. Local anesthesia was achieved within 1% lidocaine. An 8-[place] [employer] is catheter was then inserted. Approximately 5.3 liters of clear, yellowish fluid was removed for the rapeutic purposes only. The catheter was removed and external pressure was held to achieve hemostasis. A sterile dressing was applied to the procedure site. The patient tolerated the procedure well without immediate complicati ons. IMPRESSION: Successful ultrasound-guided paracentesis with removal of 5.3 L ascitic fluid. ACT 112: Negative or not required by law. The above report was generated using voice recognition software. It may contain grammatical, syntax o r spelling errors. Electronically signed by: Abe Quan M.D. 08/28/2021 10:30 AM
[2021-08-28] MEDS ORDERED: ALBUMIN 25% 12.5 GM/50 ML VIAL IV ONE ×2 (11:06)
[2021-08-28] MEDS ORDERED: SODIUM CHLORIDE 0.9% 1000ML 1,000 ML IV PRN (11:06)
[2021-08-28] MEDS ORDERED: EPOETIN ALFA 10,000 UNITS/ML VIAL IV SCH (11:30)
[2021-08-28] MEDS: ACETAMINOPHEN 325 MG TAB PO PRN (13:45)
[2021-08-28] MEDS ORDERED: MIDODRINE HCL 10 MG TAB PO SCH (14:00)
--- NOTE | 2021-08-28 15:19 | Anesthesiology Consultation ---
Date of Service August 28, 2021 Assessment & Plan Chart Review Chart Review: Acceptable Risk for Surgery and Patient NOT seen in Pre Admission Testing Consults Requested none ASA ASA4 Proposed Anesthesia Anesthesia Type: General Risk / Benefits Reviewed With: PT / POA / Parent / Guardian, Accepts Plan and Informed Consent Obtained History Surgery Operation Date: 08/29/21 12:05 Proposed Procedures p Endoscopic Ultrasonography Upper - Irlanda Woods DO s Esophagogastroduodenoscopy - Irlanda Woods DO Height/Weight Height: 5 ft 4 in Weight: 83.5 kg Allergies Allergy/AdvReac Type Severity Reaction Status Date / Time green pepper Allergy Severe Anaphylaxis Verified 08/25/21 21:23 mushroom Allergy Severe ANAPHYLAXIS Verified 08/25/21 21: onion Allergy Severe ANAPHYLAXIS Verified 08/25/21 21:23 tramadol Allergy Mild RASH AND Verified 08/25/21 21: ITCHING ketorolac Allergy Unknown RASH Verified 08/25/21 21:23 Medications Home Medications Medication Instructions Recorded Confirmed Last Taken folic acid 1 mg tablet 1 mg PO BID 07/30/20 08/25/21 08/25/21 metoprolol succinate 25 mg 25 mg PO DAILY 07/30/20 08/25/21 08/25/21 tablet,extended release 24 hr potassium chloride 10 mEq 10 meq PO DAILY 04/04/21 08/25/21 08/25/21 capsule,extended release calcium carbonate 600 mg (1,500 1 tab PO DAILY 04/18/21 08/25/21 08/25/21 mg)-vitamin D3 400 unit tablet (Calcium 600 + D(3)) magnesium oxide 400 mg (241.3 mg 400 mg PO DAILY 04/18/21 08/25/21 08/25/21 magnesium) tablet buprenorphine HCl 8 mg sublingual 8 mg SUBLINGUAL DAILY 08/25/21 08/25/21 08/25/21 tablet cyclophosphamide 25 mg tablet 75 mg PO UD 08/25/21 08/25/21 08/25/21 enoxaparin 60 mg/0.6 mL 60 mg SUBCUT DAILY@199908/25/21 08/25/21 08/24/21 subcutaneous syringe lorazepam 0.5 mg tablet 0.5 mg PO HS PRN 08/25/21 08/25/21 08/24/21 omeprazole 20 mg capsule,delayed 20 mg PO DAILY 08/25/21 08/25/2121 release prednisone 5 mg tablet 10 mg PO DAILY 08/25/21 08/25/21 08/25/21 sevelamer carbonate 800 mg tablet 800 mg PO TIDM 08/25/21 08/25/21 08/25/21 sulfamethoxazole 800 1 tab PO UD 08/25/21 08/25/21 08/25/21 mg-trimethoprim 160 mg tablet Active Medications Generic Name Dose Route Start Last Admin Trade Name [place] PRN Reason Stop Dose Admin Acetaminophen 325 mg 08/25/21 23:48 08/28/21 13:45 Acetaminophen 325 Mg Tab PO 09/24/21 23:47 325 mg Q6H PRN Administration Mild Pain Buprenorphine HCl 8 mg 08/26/21 18:00 08/27/21 17:16 Buprenorphine Hcl 8 Mg Subl SL 09/25/21 17:59 8 mg DAILY@1800 ALLY Administration Enoxaparin Sodium 60 mg 08/25/21 23:14 08/27/21 20:45 Enoxaparin Inj 60 Mg/0.6 Ml Syr SQ 09/24/21 23:13 60 mg DAILY@2000 ALLY Administration Epoetin John 10,000 units 08/28/21 11:30 08/28/21 15:08 Epoetin John 10,000 Units/Ml Vial IV 08/28/21 18:00 10,000 units 1130 ALLY Administration Folic Acid 1 mg 08/26/21 09:00 08/28/21 08:36 Folic Acid 1 Mg Tab PO 09/25/21 08:59 1 mg BID ALYL Administration Daptomycin 325 mg/ Syringe 6.5 mls @ 3.25 mls/min 08/26/21 09:00 08/28/21 08:33 IV 09/09/21 08:59 3.25 mls/min Q48H ALLY Administration Protocol Lorazepam 0.5 mg 08/25/21 23:10 08/27/21 20:45 Lorazepam 0.5 Mg Tab PO 09/24/21 23:09 0.5 mg HS PRN Administration Anxiety Lorazepam 0.5 mg 08/26/21 21:07 08/28/21 08:33 Lorazepam 0.5 Mg Tab PO 09/25/21 21:06 0.5 mg TID PRN Administration Anxiety Midodrine 10 mg 08/28/21 14:00 08/28/21 13:40 Midodrine Hcl 10 Mg Tab PO 08/28/21 23:59 10 mg TODAY@1400 ALLY Administration Multivitamins/Minerals 1 tab 08/26/21 09:00 08/28/21 08:36 Calcium 600mg + Vit D 400 Iu Tab PO 09/25/21 08:59 1 tab DAILY ALLY Administration Pantoprazole Sodium 40 mg 08/26/21 09:00 08/28/21 08:36 Pantoprazole 40 Mg Tab PO 09/25/21 08:59 40 mg DAILY ALLY Administration Prednisone 10 mg 08/26/21 09:00 08/28/21 08:35 Prednisone 10 Mg Tablet PO 09/25/21 08:59 10 mg DAILY ALLY Administration Sevelamer HCl 800 mg 08/26/21 08:00 08/28/21 13:40 Sevelamer Hcl 800 Mg Tablet PO 09/25/21 07:59 800 mg TIDM ALLY Administration Trimethoprim/Sulfamethoxazole 1 tab 08/28/21 09:00 08/28/21 08:35 Sulfamethoxazole/Trimethoprim Ds 800/160mg Tab PO 09/27/21 08:59 1 tab MoWeFr ALLY Administration Past Medical History Medical History Acute hypokalemia Anemia Chronic respiratory failure with hypoxia Cirrhosis Cold agglutinin disease ESRD (end stage renal disease) Heart failure with preserved ejection fraction Hepatomegaly Hypomagnesemia Pleural effusion on left Pleural effusion on right Proteinuria Pulmonary edema Exercise / Class Metabolic Activity III < 4 Walking/Shop/Light housework Past Family History Family History Mother Lupus (systemic lupus erythematosus) Past Surgical History Surgical History History of bronchoscopy Hx of cardiac cath 08/15/2020: Right and left heart cath [place] [facility] [place] Past Anesthesia History No Hx of Anesthesia Complications and No Family Hx of Anesthesia Complications History of PONV No Hx of PONV and No Hx of Motion Sickness Social History Smoking Status: Current every day smoker tobacco type: cigarettes Smoking cigarettes per day: 3 Hx Alcohol Use: No Alcohol type: beer, wine and hard liquor alcohol intake frequency: holidays/special occasions only Hx Substance Use: Yes substance use type: marijuana Substance Use Type Other:: former pain killers. Is on Saboxen and medical marijuana Last Used Substance: Unknown Last Used Substance Other:: 04/03/2021 medical marijuana Physical Exam Vital Signs Last Vital Signs Temp 36.7 C 08/28/21 11:05 Pulse 91 H 08/28/21 11:05 Resp 18 08/28/21 11:05 BP 116/73 08/28/21 11:05 Pulse Ox 100 08/28/21 11:05 Testing Laboratory Results 08/28/21 05:55 08/28/21 00:42 PT 13.7 Seconds (9.0-12.0) H 08/28/21 05:55 INR 1.4 (0.9-1.1) H 08/28/21 05:55 APTT 31.0 Seconds (21.0-31.0) 08/25/21 20:25 Urine Color Brown 08/26/21 17:42 Urine Appearance Turbid (Clear) A 08/26/21 17:42 Urine pH 5.5 (4.5-7.5) 08/26/21 17:42 Ur Specific [place] 1.026 (1.000-1.030) 08/26/21 17:42 Urine Protein 2+ (Negative) H 08/26/21 17:42 Urine Glucose (UA) Negative (Negative) 08/26/21 17:42 Urine Ketones Negative (Negative) 08/26/21 17:42 Urine Nitrite Positive (Negative) A 08/26/21 17:42 Ur Leukocyte Esterase 3+ (Negative) H 08/26/21 17:42 Urine WBC (Auto) >30 /hpf (0-5) H 08/26/21 17:42 Urine RBC (Auto) 10-30 /hpf (0-4) H 08/26/21 17:42 U Hyaline Cast (Auto) 0 /lpf (0-5) 08/26/21 17:42 U Epithel Cells (Auto) >30 /lpf (0-5) H 08/26/21 17:42 Urine Bacteria (Auto) Negative (Negative) 08/26/21 17:42 08/26/21 17:42 Urine Culture - Final Urine,Clean Catch More than three types of organisms present, all low counts mixed probable skin alber. No further identifications or sensitivities to follow. 08/25/21 20:25 Aerobic Blood Culture - Preliminary Blood No growth in Aerobic bottle after 48 hours. Anaerobic Blood Culture - Preliminary No growth in Anaerobic bottle after 48 hours. 08/25/21 20:37 Aerobic Blood Culture - Preliminary Blood No growth in Aerobic bottle after 48 hours. Anaerobic Blood Culture - Final Electrocardiogram Date: 08/25/21 Findings: + NSR @ (at 100) Chest X-Ray Date: 08/25/21 Findings: + NAD Echocardiogram Date: 04/20/21 EF: 60% LV Function: normal RWMA: + none Valvular Disease: + MR (mild) and + pertinent finding (mild TR;NL RV FXN)
[2021-08-28 17:21] LABS: Appearance Peritoneal Fluid CLEAR; Basophils, Fluid 0 %; Color Peritoneal Fluid YELLOW; Eosinophils, Fluid 0 %; Lymphocytes, Fluid 22 %; Mono,Macrophage,Mesothelial 55 %; Neutrophils, Fluid 23 %; RBC Peritoneal Fluid (A) < 3000 /uL; WBC Peritoneal Fluid (A) 53 /ul (0-300)
--- NOTE | 2021-08-28 18:01 | Dialysis Progress Note ---
Date of Service August 28, 2021 Assessment & Plan (1) ESRD (end stage renal disease): Plan: for HD today w/ goal 3L UF; no heparin as she is s/p paracentesis Electrolytes are acceptable > Blood pressure has been soft in late 90s and early 100, asymptomatic -- but will give midodrine 10 mg prior to HD and use albumin w/ tx Next dialysis will be saturday >>>>recommend d/w rheum re cytoxan, prednisone management with current acute illness (2) Bacteremia due to Gram-positive bacteria: Plan: -Bacteremia Blood culture grew grew Staph epidermidis, methacillin resistant She was started on daptomycin Repeat blood culture pending but NGTD -await ID c/s -so far no F and f/u cxs NGTD; if these remain negative and eval for source/metastases also negative, would not necessarily change line -recommend careful eval for infection nidus > imaging low back/hips, TTE (3) Cirrhosis: Plan: As per GI . f/u paracentesis results Admission and Anticipated Discharge Date Admission Date: August 25, 2021 Subjective feeling a bit better but still w/ several weeks of low back and BL hip pain; no sob; s/p 5.3L tap today and sore from this Review of Systems Review of Systems: All systems reviewed & are unremarkable except as noted in Subjective Physical Exam Constitutional: well developed and well nourished Eyes: EOM intact bilaterally ENMT: Ears: no external ear abnormality Nose: no external nose abnormality Mouth: + dry oral mucous membranes Neck: no nuchal rigidity Respiratory: normal respiratory effort (on 02NC 2L) and able to speak in complete sentences Auscultation: + diminished lung sounds Cardiovascular: RRR, no murmur, no edema Gastrointestinal (Abdomen): Inspection/Auscultation: normal bowel sounds Percussion/Palpation: abdomen soft; abdomen nontender and no guarding Musculoskeletal: Extremities: strength 5/5 throughout Skin: no rashes, warm and dry Neurologic: collier, fluent speech, no tremor Psychiatric: Orientation: alert and oriented x 3 Results & Data ([facility]) Vital Signs (Past 12 Hours) Vital Signs Temp Pulse Pulse Resp BP BP Pulse Ox 08/28/21 16:10 88 08/28/21 15:40 69 101/58 L 08/28/21 15:20 82 97/66 L 10/25/21 15:00 83 87/26 L 08/28/21 14:40 92 H 102/68 08/28/21 14:37 36.5 C 71 08/28/21 11:05 36.7 C 91 H 18 116/73 100 08/28/21 08:47 74 08/28/21 07:56 36.7 C 83 18 103/71 100 Laboratory Results 08/28/21 05:55 08/28/21 00:42
[2021-08-28] MEDS: CYCLOPHOSPHAMIDE 25 MG TAB PO SCH ×2 (18:33→20:30)
[2021-08-28] MEDS: ALBUMIN 25% 12.5 GM/50 ML VIAL IV SCH ×2 (18:33→18:34)
--- NOTE | 2021-08-28 19:04 | Hospitalist Progress Note ---
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 on dialysis since April-May 2021 on Saturday schedule through temporary catheter left chest wall, chronic respiratory failure with hypoxia on 3L O2, diastolic heart failure, cirrhosis, cold agglutinin disease, previously required plasmapheresis, anemia, depression, hepatitis C, left IJ TDC thrombus presented to ER for positive blood cultures that was drawn in HD Bacteremia Blood culture grew grew Staph epidermidis staphylococcus epidermidis DNA by PCR Negative Positive mecA/C (Methacillin Resistance Genes) Negative Positive She was started on daptomycin Repeat blood culture no growth Patient has a temporal left chest wall catheter for dialysis. if repeat blood culture positive, will need to remove the TDC ID consult Pending Will get an echo Will consider to get CT abd/pelvis with contrast to eval for any source of infection Nephro is ok to proceed with CT with contrast Ascites S/P paracentesis done where 5.2 L ascites fluid removed Gastro on board Will need therapeutic paracentesis with fluid studies to check SAAG and screen for SBP. Case discussed with GI, plan to order CT abdomen with contrast (spoke with nephrology and okay with the imaging with contrast) Plan for EUS tomorrow NPO after midnight ESRD Progressive glomerulonephritis leading to ESRD Prednisone 10 mg daily, will taper to 5 mg on Saturday Last hemodialysis was on Saturday, hemodialysis on Saturday Nephrology on board Left IJ TDC thrombus. She has been on Lovenox since 08/18/2021 Monitor hemoglobin Will hold morning dose lovenox since pt is schedule for EUS tomorrow Stable Chronic respiratory failure Continue oxygen supplement, baseline Stable Diastolic CHF: Fluid management during dialysis Stable Anemia: cold Agglutinins related anemia - Hx of being on rituxan therapy and plasmapheresis Hemoglobin 8.9 Anxiety and depression: anxiety, PTSD, fear of going to appointments. Stable Obesity (BMI 30.0-34.9): Diet and exercise encouraged Monitor with titration up of SSRI PCOS (polycystic ovarian syndrome): Stable, has 2 children, boys, ages 4 and 6. DVT ppx Lovenox CODE: Full Admission and Anticipated Discharge Date Admission Date: August 25, 2021 Subjective Patient was seen and evaluated of abnormal blood culture she said that she did not sleep well last night due to her anxiety She had paracentesis done today where 5.2 liter ascites removed Denies any chest pain, palpitation, dizziness, shortness of breath. Review of Systems Review of Systems: All systems reviewed & are unremarkable except as noted in Subjective Physical Exam Physical Exam: General- No acute distress Head- atraumatic Eyes- PERRL, EOMI, ENT- Poor dentition Neck- supple, no JVD Lungs- No wheezing, No crackle Heart- regular rhythm; no murmur Abdomen- normal bowel sounds, +ascites, +mild distended, Ecchymosis, Left chest with catheter in place without surrounding erythema Extremities- no calf tenderness, Neuro- alert, oriented x 3; PERRL, EOMI; no facial palsy; no dysarthria Skin- warm & dry Results & Data Results & Data ([facility]) Vital Signs (Past 12 Hours) Vital Signs Temp Pulse Pulse Resp BP BP Pulse Ox 08/28/21 18:31 37.1 C 85 18 99/64 L 94 08/28/21 16:10 88 08/28/21 15:40 69 101/58 L 08/28/21 15:20 82 97/66 L 08/28/21 15:00 83 87/26 L 08/28/21 14:40 92 H 102/68 08/28/21 14:37 36.5 C 71 08/28/21 11:05 36.7 C 91 H 18 116/73 100 08/28/21 08:47 74 08/28/21 07:56 36.7 C 83 18 103/71 100
[2021-08-28] MEDS: buprenorphine HCL 8 MG SUBL SL SCH (19:14)
[2021-08-29] MEDS: SEVELAMER HCL 800 MG TABLET PO SCH ×3 (09:13→18:03)
[2021-08-29 09:32] LABS: Mean Corpuscular Hgb Conc 30.7 g/dL (32-36)
[2021-08-29] MEDS: FOLIC ACID 1 MG TAB PO SCH ×2 (09:42→20:29)
[2021-08-29] MEDS: CALCIUM 600MG + VIT D 400 IU TAB PO SCH (09:42)
[2021-08-29] MEDS: PANTOprazole 40 MG TAB PO SCH (09:42)
[2021-08-29] MEDS: predniSONE 5 MG TAB PO SCH (09:42)
[2021-08-29] MEDS: LORazepam 0.5 MG TAB PO PRN ×2 (09:46→20:31)
[2021-08-29 10:04] LABS: Hematocrit (blood only) 30.9 % (37-47); Hemoglobin 9.5 g/dL (12.0-16.0); Mean Corpuscular Hemoglobin 33.1 pg (25-34); Mean Corpuscular Volume 107.7 fL (80-100); RDW Coefficient of Variation 23.2 % (11.5-14.5); RDW Standard Deviation 91.1 fL (36.4-46.3); Red Blood Count 2.87 M/uL (4.2-5.4); White Blood Count 8.96 K/uL (4.8-10.8)
[2021-08-29 10:10] LABS: Albumin Globulin Ratio 0.5 (0.9-2); Albumin Level 1.8 gm/dl (3.4-5.0); BUN Creatinine Ratio 2.4 (10-20); Bilirubin,Total 1.3 mg/dl (0.2-1); Creatinine Clr Calc Pharmacy 21.7 ml/min; Est GFR (African American) 18.3 ml/min; Est GFR (Non-African American) 15.8 ml/min; Globulin 3.6 gm/dl (2.5-4.0); Potassium 4.1 mmol/L (3.5-5.1); Total Protein 5.4 gm/dl (6.4-8.2)
[2021-08-29 10:11] LABS: Mean Platelet Volume 12.3 fL (7.4-10.4); Platelet Count 134 K/uL (130-400)
[2021-08-29] MEDS ORDERED: ePHEDrine sulfate 50 MG/ML AMP IV PRN (11:20)
[2021-08-29] MEDS ORDERED: ATROPINE SULFATE 0.1 MG/ML 10ML SYR IV PRN (11:20)
[2021-08-29] MEDS ORDERED: ONDANSETRON INJ 2 MG/ML 2 ML VIAL IV PRN (11:20)
--- NOTE | 2021-08-29 11:28 | History & Physical Bridge Note ---
Date of Service August 29, 2021 History & Physical Bridge Note I have examined the patient, reviewed the History & Physical and in the interval since the performance of the History & Physical I have noted the following changes of clinical significance: no changes noted. We are planning to do upper endoscopy and endoscopic ultrasound guided liver biopsy as part of the patient's evaluation for suspected portal hypertension. We have discussed the risks of the procedures to include bleeding, infection, perforation, pain, bile leak, hematoma/hemorrhage, insufficient cellularity and the need for follow-up studies.
[2021-08-29] MEDS ORDERED: VANCOMYCIN CONSULT ACTIVE PRN (11:37)
[2021-08-29] MEDS ORDERED: MIDAZOLAM HCL 1 MG/ML 2ML VIAL ONE (11:42)
[2021-08-29] MEDS ORDERED: PROPOFOL IV EMULSION 10 MG/ML 20 ML VIAL IV ONE ×2 (11:42→12:43)
[2021-08-29] MEDS ORDERED: KETAMINE 50 MG/5 ML SYRINGE ONE (11:42)
[2021-08-29] MEDS ORDERED: PHENYLEPHRINE 100MCG/ML 5ML SYR ONE (11:42)
[2021-08-29] MEDS ORDERED: HEPARIN 100 UNIT/ML 5ML FLUSH ONE ×2 (11:56→11:58)
[2021-08-29] MEDS ORDERED: VANCOMYCIN HCL 1,500 MG in SODIUM CHLORIDE 0.9% 500 ML IV ONE (12:00)
[2021-08-29 12:26] LABS: Pregnancy Test, Serum Negative (Negative)
[2021-08-29] MEDS ORDERED: ONDANSETRON INJ 2 MG/ML 2 ML VIAL ONE (12:43)
--- NOTE | 2021-08-29 12:43 | GI REPORT ---
Patient Name: Elaine Guzman Procedure Date: 08/29/2021 12:02 PM Date of : 1980 Admit Type: Inpatient Age: 41 Gender: Female Attending MD: Irlanda Woods DO Procedure: Upper GI endoscopy Providers: Irlanda Woods DO Referring MD: Lillie Tolliver Pa-c, Christy MELGOZA M.d. Indications: Portal hypertension with suspected esophageal varices Medicines: Monitored Anesthesia Care Complications: No immediate complications. Estimated blood loss: Minimal. Estimated Blood Loss: Estimated blood loss was minimal. Procedure: Pre-Anesthesia Assessment: - Prior to the procedure, a History and Physical was performed, and patient medications, allergies and sensitivities were reviewed. The patient's tolerance of previous anesthesia was reviewed. - The risks and benefits of the procedure and the sedation options and risks were discussed with the patient. All questions were answered and informed consent was obtained. - Patient identification and proposed procedure were verified prior to the procedure by the physician, the nurse and the irrigation manager. The procedure was verified in the procedure room. - Pre-procedure physical examination revealed no contraindications to sedation. - ASA Grade Assessment: IV - A patient with severe systemic disease that is a constant threat to life. - After reviewing the risks and benefits, the patient was deemed in satisfactory condition to undergo the procedure. - The anesthesia plan was to use monitored anesthesia care (MAC). - Immediately prior to administration of medications, the patient was re-assessed for adequacy to receive sedatives. - The heart rate, respiratory rate, oxygen saturations, blood pressure, adequacy of pulmonary ventilation, and response to care were monitored throughout the procedure. - The physical status of the patient was re-assessed after the procedure. After obtaining informed consent, the endoscope was passed under direct vision. Throughout the procedure, the patient's blood pressure, pulse, and oxygen saturations were monitored continuously. The Endoscope was introduced through the mouth, and advanced to the third part of duodenum. The upper GI endoscopy was accomplished without difficulty. The patient tolerated the procedure well. Findings: Diffuse, white plaques were found in the entire esophagus. Cells for cytology were obtained by brushing. There is no endoscopic evidence of varices in the entire esophagus. Diffuse moderate inflammation characterized by congestion (edema), erythema and granularity was found in the entire examined stomach. Biopsies were taken with a cold forceps for histology. The pathology specimen was placed into Bottle B. Estimated blood loss was minimal. The examined duodenum was normal. Biopsies were taken with a cold forceps for histology. The pathology specimen was placed into Bottle A. Estimated blood loss was minimal. Impression: - Esophageal plaques were found, suspicious for candidiasis. Cells for cytology obtained. - Gastritis. Biopsied. - Normal examined duodenum. Biopsied. Recommendation: - Perform an upper endoscopic ultrasound (UEUS) today. - Await pathology results. Irlanda Woods D.O. Irlanda Woods DO 08/29/2021 12:43:08 PM This report has been signed electronically. Note Initiated On: 08/29/2021 12:02 PM Number of Addenda: 0 I attest to the content of the Intraoperative Record and orders documented therein, exceptions below {[id number]}
[2021-08-29] MEDS: CIPROFLOXACIN / D5W 200 MG/100 ML BAG IV SCH (12:44)
--- NOTE | 2021-08-29 13:04 | GI REPORT ---
Patient Name: Elaine Guzman Procedure Date: 08/29/2021 12:03 PM Date of : 1980 Admit Type: Inpatient Age: 41 Gender: Female Attending MD: Irlanda Woods DO Procedure: Upper EUS Providers: Irlanda Woods DO Referring MD: Lillie Tolliver Pa-c, Christy MELGOZA M.d. Indications: Abnormal abdominal/pelvic CT scan, Abnormal lab work Medicines: Monitored Anesthesia Care, Cipro 200 mg IV Complications: No immediate complications. Estimated blood loss: Minimal. Estimated Blood Loss: Estimated blood loss was minimal. Procedure: Pre-Anesthesia Assessment: - Prior to the procedure, a History and Physical was performed, and patient medications, allergies and sensitivities were reviewed. The patient's tolerance of previous anesthesia was reviewed. - The risks and benefits of the procedure and the sedation options and risks were discussed with the patient. All questions were answered and informed consent was obtained. - Patient identification and proposed procedure were verified prior to the procedure by the physician, the nurse and the trench pipe layer helper. The procedure was verified in the procedure room. - Pre-procedure physical examination revealed no contraindications to sedation. - ASA Grade Assessment: IV - A patient with severe systemic disease that is a constant threat to life. - After reviewing the risks and benefits, the patient was deemed in satisfactory condition to undergo the procedure. - The anesthesia plan was to use monitored anesthesia care (MAC). - Immediately prior to administration of medications, the patient was re-assessed for adequacy to receive sedatives. - The heart rate, respiratory rate, oxygen saturations, blood pressure, adequacy of pulmonary ventilation, and response to care were monitored throughout the procedure. - The physical status of the patient was re-assessed after the procedure. After obtaining informed consent, the endoscope was passed under direct vision. Throughout the procedure, the patient's blood pressure, pulse, and oxygen saturations were monitored continuously. The Endosonoscope was introduced through the mouth, and advanced to the third part of duodenum. The upper EUS was accomplished without difficulty. The patient tolerated the procedure well. Findings: ENDOSONOGRAPHIC FINDING: : There was no sign of significant endosonographic abnormality in the common bile duct. The maximum diameter of the duct was 4 mm. No stones, no biliary sludge and ducts of normal caliber were identified. Extensive hyperechoic material consistent with sludge was visualized endosonographically in the gallbladder. Pancreatic parenchymal abnormalities were noted in the entire pancreas. These consisted of lobularity without honeycombing. No lymphadenopathy seen. There was no sign of significant endosonographic abnormality in the left adrenal gland. No adrenal gland enlargement was identified. There was abnormal echogenicity in the visualized portion of the liver. This area was hyperechoic. Fine needle biopsy was performed. Color Doppler imaging was utilized prior to needle puncture to confirm a lack of significant vascular structures within the needle path. Three passes were made with the 19 gauge ultrasound core biopsy needle using a transgastric approach (1 pass) and using a transduodenal approach (2 passes). A visible core of tissue was obtained from each lobe of the liver. Final cytology results are pending. The pathology specimen was placed into Bottle C (Left lobe) and D (right lobe). Estimated blood loss was minimal. A moderate amount of fluid, visualized as a hypoechoic feature, was found in the peritoneal cavity. Impression: - There was no sign of significant pathology in the common bile duct. - Hyperechoic material consistent with sludge was visualized endosonographically in the gallbladder. - Pancreatic parenchymal abnormalities consisting of lobularity were noted in the entire pancreas. - Endosonographic images of the left adrenal gland were unremarkable. - There was abnormal echogenicity in the visualized portion of the liver. This was hyperechoic. The diagnosis is suggestive of fatty infiltration. Fine needle biopsy performed. Recommendation: - Return patient to [facility] for ongoing care. - Advance diet as tolerated today. - Await path results. - Cipro (ciprofloxacin) 250 mg PO BID for 3 days. - No NSAIDS or anticoagulation for 72 hours jessica Woods D.O. Irlanda Woods, 08/29/2021 1:03:39 PM This report has been signed electronically. Note Initiated On: 08/29/2021 12:03 PM Number of Addenda: 0 I attest to the content of the Intraoperative Record and orders documented therein, exceptions below {[id number]}
--- NOTE | 2021-08-29 13:04 | Post Operative Brief Note ---
Immediate Post Op Note v1 Date of Surgery August 29, 2021 Pre & Post Diagnosis Operation Date: 08/29/21 12:05 Pre-Op Diagnosis: Ascites, Cirrhosis Post-Op Diagnosis: Ascites, Cirrhosis I identified the patient and participated in the time-out.: Yes Procedure Operation Date: 08/29/21 12:05 Actual Procedures p Endoscopic Ultrasonography Upper(Not Applicable) - DO cate Downs Esophagogastroduodenoscopy(Not Applicable) - Irlanda Woods DO Surgeon Irlanda Woods DO Expanded Duty Dental Assistant none Estimated Blood Loss 0 Findings Consistent with Post-Op Diagnosis
--- NOTE | 2021-08-29 13:08 | Communication Note ---
Date of Service: August 29, 2021 The patient underwent upper endoscopy and endoscopic ultrasound this afternoon. We did identify diffuse esophageal candidiasis and mild gastritis. A liver biopsy was performed as planned. Recommendations avoid anticoagulation and antiplatelet units for 72 hours may advance to a low-sodium diet Cipro 250 mg po x 3 days (prophylaxis given ascites) Diflucan for 10 days to treat the esophageal candidiasis Please call with any questions or concerns GI to sign off
[2021-08-29] MEDS: fentaNYL citrate 100 MCG/2 ML VIAL IV PRN ×2 (13:23→13:45)
--- NOTE | 2021-08-29 14:26 | Pharmacy Report ---
Pharmacy [facility] Short Note - Date of Service August 29, 2021 - Assessment & Plan Assessment 41 year old F previously receiving daptomycin is now ordered vancomycin IV for treatment of gram-positive cocci bacteremia (Staphylococcus epidermidis) likely secondary to infected HD catheter. Plan is to salvage this line with concomitant antibiotic lock therapy with plan to remove line if patient deteriorates. Initial blood cultures 08/24 grew Staph. epidermidis (positive for mecA/C gene), repeat blood cultures from 08/25 show no growth at 48 hours, peritoneal fluid and throat cultures are pending. Typical HD schedule is Saturday, Saturday, Saturday. Day #4 of antimicrobial therapy. Plan is to continue antibiotics until 09/08/21. Plan Vancomycin * Loading dose of 1500 mg (20 mg/kg) IV x 1 * Will dose by level, random level ordered for tomorrow AM * Goal vancomycin trough will be 15-20 mcg/mL * Anticipating HD tomorrow Pharmacy will continue to follow and will adjust dose/frequency as necessary. Thank you.
--- NOTE | 2021-08-29 15:19 | Anesthesiology Progress Note ---
Date of Service August 29, 2021 Anesthesia Post Procedure Vital Signs Vital Signs: Temp Pulse Pulse Pulse Pulse Resp BP 08/29/21 14:45 93 H 12 08/29/21 14:30 93 H 12 08/29/21 14:15 36.5 C 100 H 12 08/29/21 14:05 96 H 16 08/29/21 13:55 96 H 16 08/29/21 13:45 102 H 14 08/29/21 13:35 100 H 16 08/29/21 13:25 98 H 16 08/29/21 13:15 38.5 C H 99 H 24 08/29/21 13:06 38.5 C H 87 16 08/29/21 11:15 37.5 C 93 H 20 08/29/21 11:14 37.2 C 87 18 08/29/21 02:38 36.8 C 85 18 08/28/21 22:28 36.9 C 80 18 08/28/21 22:20 73 08/28/21 19:43 37.5 C 88 18 08/28/21 18:31 37.1 C 85 18 08/28/21 18:30 36.8 C 72 08/28/21 18:00 71 104/62 08/28/21 17:40 73 107/70 08/28/21 17:20 68 99/53 L 08/28/21 17:00 73 106/66 08/28/21 16:40 75 96/60 L 08/28/21 16:20 72 91/59 L 08/28/21 16:10 88 08/28/21 16:00 79 98/67 L 08/28/21 15:40 69 101/58 L 08/28/21 15:20 82 97/66 L BP Pulse Ox 08/29/21 14:45 95/59 L 100 08/29/21 14:30 89/59 L 100 08/29/21 14:15 91/58 L 100 08/29/21 14:05 90/60 L 100 08/29/21 13:55 90/59 L 100 08/29/21 13:45 95/60 L 100 08/29/21 13:35 89/61 L 100 08/29/21 13:25 93/55 L 100 08/29/21 13:15 89/59 L 100 08/29/21 13:06 108/67 100 10/26/21 11:15 93/56 L 100 08/29/21 11:14 101/69 94 08/29/21 02:38 95/60 L 100 08/28/21 22:28 99/64 L 100 08/28/21 22:20 08/28/21 19:43 102/65 99 08/28/21 18:31 99/64 L 94 08/28/21 18:30 113/69 08/28/21 18:00 08/28/21 17:40 08/28/21 17:20 08/28/21 17:00 08/28/21 16:40 08/28/21 16:20 08/28/21 16:10 08/28/21 16:00 08/28/21 15:40 08/28/21 15:20 Pain Intensity Abdomen: Pain Intensity: 3 Transfer of Care Handoff Completed per policy Notes Mental Status: alert / awake / arousable and participated in evaluation Patient Amnestic to Procedure: Yes Nausea / Vomiting: adequately controlled Pain: adequately controlled Airway Patency, RR, SpO2: stable & adequate BP & HR: stable & adequate Hydration State: stable & adequate Anesthetic Complications: no major complications apparent and Pt Satisfied with anesthetic care
[2021-08-29] MEDS ORDERED: OPTIRAY 320 100ml IV ONE (16:13)
--- NOTE | 2021-08-29 16:32 | CT Scan Report ---
ABDOMEN AND PELVIS CT WITH IV CONTRAST CT DOSE: 877.12 mGy.cm HISTORY: Acute sepsis R/o any source of infection TECHNIQUE: Multiaxial CT images of the abdomen and pelvis were performed following the IV administrat ion of 94 cc of Optiray, A dose lowering technique was utilized adhering to the principles of ALARA. COMPARISON STUDY: CT abdomen and pelvis 07/30/2020, ultrasound-guided paracentesis 08/28/2021. FINDINGS: Partially imaged catheter within the right atrium. Mild cardiomegaly. Dependent bibasilar l inear consolidative opacities pneumatosis or pneumoperitoneum. Hepatosplenomegaly with hepatic steato sis redemonstrated. The liver measures up to 26.7 cm in length. The spleen measures 14.5 cm. Unremark able pancreas and adrenal glands. Probable gallbladder sludge. Unremarkable kidneys. Mild urinary rosita dder wall thickening with partial distention. Uterus and adnexa appear unremarkable. Mild atheroscler osis of the aorta without aneurysm. No adenopathy. Small volume of abdominal pelvic ascites with generalized body wall edema. Small fat and fluid filled periumbilical hernia. There is mild circumferential wall thickening of the ascending and transverse colon. The appendix is normal. No acute fracture. Suspicious bone lesion. Moderate superior endplate Schmorl's nodes at L3 and L5 are new from comparison. No retropulsion or paravertebral edema. IMPRESSION: 1. Hepatosplenomegaly with hepatic steatosis. Anasarca with small volume of abdominal pelvic ascites. 2. Mild circumferential wall thickening of the ascending and transverse colon may be secondary to por anita colopathy versus a nonspecific colitis. 3. No bowel obstruction. 4. Dependent bibasilar opacities favor atelectasis. 5. Normal appendix. 6. Additional findings as above. ACT 112: Negative or not required by law. The above report was generated using voice recognition software. It may contain grammatical, syntax o r spelling errors. Electronically signed by: Abe Quan M.D. 08/29/2021 4:31 PM
[2021-08-29] MEDS: buprenorphine HCL 8 MG SUBL SL SCH (18:03)
[2021-08-29] MEDS: ACETAMINOPHEN 325 MG TAB PO PRN (19:35)
--- NOTE | 2021-08-29 21:01 | Hospitalist Progress Note ---
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 since April-May 2021 on Saturday schedule through temporary catheter left chest wall, chronic respiratory failure with hypoxia on 3L O2, diastolic heart failure, cirrhosis, cold agglutinin disease, previously required plasmapheresis, anemia, depression, hepatitis C, left IJ TDC thrombus presented to ER for positive blood cultures that was drawn in HD Bacteremia Blood culture grew grew Staph epidermidis staphylococcus epidermidis DNA by PCR Negative Positive mecA/C (Methacillin Resistance Genes) Negative Positive She was started on daptomycin Repeat blood culture no growth Patient has a temporal left chest wall catheter for dialysis. if repeat blood culture positive, will need to remove the TDC ID on board recommended to change daptomycin to Vancomycin to be given with dialysis and abx lock therapy until 09/08 Echo did not mention any vegetation noted If patient become febrile or deteriorates, will need to remove the left chest catheter dialysis CT abd/pelvis with contrast to eval for any source of infection. Nephro was ok to proceed with CT with IV contrast CT abd/pelvis did not showed any infectious source Ascites S/P paracentesis done where 5.2 L ascites fluid removed Gastro on board Will need therapeutic paracentesis with fluid studies to check SAAG and screen for SBP. GI on board EUS showed diffuse esophageal candidiasis and mild gastritis. I recommended to avoid anticoagulation and antiplatelet units for 72 hours Cipro 250 mg po x 3 days (prophylaxis given ascites) Diflucan for 10 days to treat the esophageal candidiasis ESRD Progressive glomerulonephritis leading to ESRD Prednisone 10 mg daily, will taper to 5 mg on Saturday Last hemodialysis was on Saturday, hemodialysis on Saturday Nephrology on board Left IJ TDC thrombus. 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 Stable Obesity (BMI 30.0-34.9): Diet and exercise encouraged Monitor with titration up of SSRI PCOS (polycystic ovarian syndrome): Stable, has 2 children, boys, ages 4 and 6. DVT ppx Lovenox on hold for now due to recent EUS Will place SCD CODE: Full Admission and Anticipated Discharge Date Admission Date: August 25, 2021 Subjective Patient was seen and evaluated of abnormal blood culture Lying in bed with no acute distress Denies any chest pain, palpitation, dizziness, shortness of breath. Review of Systems Review of Systems: All systems reviewed & are unremarkable except as noted in Subjective Physical Exam Physical Exam: General- No acute distress Head- atraumatic Eyes- PERRL, EOMI, ENT- Poor dentition Neck- supple, no JVD Lungs- No wheezing, No crackle Heart- regular rhythm; no murmur Abdomen- normal bowel sounds, +ascites, +mild distended, Ecchymosis, Left chest with catheter in place without surrounding erythema Extremities- no calf tenderness, Neuro- alert, oriented x 3; PERRL, EOMI; no facial palsy; no dysarthria Skin- warm & dry Results & Data Results & Data ([facility]) Vital Signs (Past 12 Hours) Vital Signs Temp Pulse Pulse Pulse Resp BP Pulse Ox 08/29/21 19:09 36.7 C 91 H 16 100/66 100 08/29/21 17:24 36.8 C 95 H 18 104/66 100 08/29/21 16:50 38.5 C H 90 12 99/60 L 100 08/29/21 16:30 84 15 90/57 L 100 08/29/21 16:00 94 H 13 88/58 L 100 08/29/21 15:45 95 H 15 96/59 L 100 08/29/21 15:30 85 15 86/55 L 99 08/29/21 15:15 92 H 12 90/62 L 98 08/29/21 15:00 96 H 14 95/58 L 100 08/29/21 14:45 93 H 12 95/59 L 100 08/29/21 14:30 93 H 12 89/59 L 100 08/29/21 14:15 36.5 C 100 H 12 91/58 L 100 08/29/21 14:05 96 H 16 90/60 L 100 08/29/21 13:55 96 H 16 90/59 L 100 08/29/21 13:45 102 H 14 95/60 L 100 08/29/21 13:35 100 H 16 89/61 L 100 08/29/21 13:25 98 H 16 93/55 L 100 08/29/21 13:15 38.5 C H 99 H 24 89/59 L 100 08/29/21 13:06 38.5 C H 87 16 108/67 100 08/29/21 11:15 37.5 C 93 H 20 93/56 L 100 08/29/21 11:14 37.2 C 87 18 101/69 94
[2021-08-30] MEDS: CIPROFLOXACIN / D5W 200 MG/100 ML BAG IV SCH ×2 (00:17→12:55)
[2021-08-30] MEDS ORDERED: FLUCONAZOLE CONSULT ACTIVE PRN (01:27)
[2021-08-30] MEDS ORDERED: FLUCONAZOLE 100 MG TAB PO ONE (01:45)
[2021-08-30 05:51] LABS: Hematocrit (blood only) 28.1 % (37-47); Hemoglobin 8.8 g/dL (12.0-16.0); Mean Corpuscular Hemoglobin 33.3 pg (25-34); Mean Corpuscular Hgb Conc 31.3 g/dL (32-36); Mean Corpuscular Volume 106.4 fL (80-100); Mean Platelet Volume 11.2 fL (7.4-10.4); Platelet Count 126 K/uL (130-400); RDW Coefficient of Variation 23.1 % (11.5-14.5); RDW Standard Deviation 89.3 fL (36.4-46.3); Red Blood Count 2.64 M/uL (4.2-5.4); White Blood Count 8.06 K/uL (4.8-10.8)
[2021-08-30 06:18] LABS: BUN Creatinine Ratio 2.9 (10-20); Calcium 7.5 mg/dl (8.5-10.1); Est GFR (African American) 13.4 ml/min; Est GFR (Non-African American) 11.6 ml/min; Potassium 4.3 mmol/L (3.5-5.1)
[2021-08-30] MEDS: CALCIUM 600MG + VIT D 400 IU TAB PO SCH (08:25)
[2021-08-30] MEDS: PANTOprazole 40 MG TAB PO SCH (08:25)
[2021-08-30] MEDS: SEVELAMER HCL 800 MG TABLET PO SCH ×3 (08:25→20:31)
[2021-08-30] MEDS: FOLIC ACID 1 MG TAB PO SCH ×2 (08:25→20:31)
[2021-08-30] MEDS: predniSONE 5 MG TAB PO SCH (08:25)
[2021-08-30] MEDS: SULFAMETHOXAZOLE/TRIMETHOPRIM DS 800/160MG TAB PO SCH (08:25)
[2021-08-30] MEDS: LORazepam 0.5 MG TAB PO PRN ×2 (08:28→21:43)
[2021-08-30] MEDS ORDERED: VANCOMYCIN HCL 500 MG in SODIUM CHLORIDE 0.9% 250 ML IV SCH (09:00)
[2021-08-30] MEDS ORDERED: EPOETIN ALFA 10,000 UNITS/ML VIAL IV ONE (09:59)
[2021-08-30] MEDS ORDERED: SODIUM CHLORIDE 0.9% 1000ML 1,000 ML IV PRN (09:59)
--- NOTE | 2021-08-30 10:00 | Nephrology Progress Note ---
Date of Service August 30, 2021 Assessment & Plan (1) ESRD (end stage renal disease): Plan: for HD today w/ goal 3L UF; no heparin per GI recs 72h post procedure; Electrolytes are acceptable > Blood pressure has been even softer in 80-90s, asymptomatic -- but will give midodrine 10 mg prior to HD and use albumin w/ tx Next dialysis will be 09/01 >>rheum recommends hold cytoxan while on abtx, cont pred 5 mg daily taper (2) Bacteremia due to Gram-positive bacteria: Plan: -Bacteremia Blood culture grew grew Staph epidermidis, methacillin resistant as OP only She was started on daptomycin > now vanco Repeat blood cultures pending but NGTD -f/u ID recs >> vanco and vanco lock therapy through 09/08 starting 08/31 lock therapy will be 25 mg vanco and 12,500 units heparin in 2.3mL NS; stable x 72 hrs -will repeat cxs from line today since it was accessed by nondialysis staff -so far no F and f/u cxs NGTD; if these remain negative and eval for source/metastases also negative, would not necessarily change line -no evidence of infection nidus > TTE unremarkable as is abd/pelv CT and L spine XR (3) Cirrhosis: Plan: As per GI . s/p 08/28 paracentesis 5.3L; f/u liver bx results; monitor liver #s on diflucan x 1 wk; also for cipro for SBP prophylaxis 72hr >>?Diflucan currently on hold - will ask hospitalist Admission and Anticipated Discharge Date Admission Date: August 25, 2021 Subjective pt seen and evaluated on dialysis. feeling ok; no f/c; + fatigue; back pain a bit better; no sob Review of Systems Review of Systems: All systems reviewed & are unremarkable except as noted in Subjective Physical Exam Constitutional: well developed and well nourished Eyes: EOM intact bilaterally ENMT: Ears: no external ear abnormality Nose: no external nose abnormality Mouth: + dry oral mucous membranes Neck: no nuchal rigidity Respiratory: normal respiratory effort (on 02NC 2L) and able to speak in complete sentences Auscultation: + diminished lung sounds Cardiovascular: RRR, no murmur, no edema Gastrointestinal (Abdomen): Inspection/Auscultation: normal bowel sounds Percussion/Palpation: abdomen soft; abdomen nontender and no guarding Musculoskeletal: Extremities: + abnormal strength Skin: no rashes, warm and dry Neurologic: collier, limited but fluent speech, no tremor Psychiatric: Orientation: alert and oriented x 3 Results & Data ([facility]) Vital Signs (Past 12 Hours) Vital Signs Temp Pulse Pulse Resp BP Pulse Ox 08/30/21 06:30 36.6 C 88 16 85/51 L 98 08/30/21 03:58 36.7 C 82 16 97/65 L 93 08/30/21 00:00 88 08/29/21 23:21 36.5 C 93 H 16 97/62 L 94 Laboratory Results 08/30/21 05:35 08/30/21 05:[address] a/p 08/29 FINDINGS: Partially imaged catheter within the right atrium. Mild cardiomegaly. Dependent bibasilar linear consolidative opacities pneumatosis or pneumoperitoneum. Hepatosplenomegaly with hepatic steatosis redemonstrated. The liver measures up to 26.7 cm in length. The spleen measures 14.5 cm. Unremarkable pancreas and adrenal glands. Probable gallbladder sludge. Unremarkable kidneys. Mild urinary bladder wall thickening with partial distention. Uterus and adnexa appear unremarkable. Mild atherosclerosis of the aorta without aneurysm. No adenopathy. Small volume of abdominal pelvic ascites with generalized body wall edema. Small fat and fluid filled periumbilical hernia. There is mild circumferential wall thickening of the ascending and transverse colon. The appendix is normal. No ac lupillo fracture. Suspicious bone lesion. Moderate superior endplate Schmorl's nodes at L3 and L5 are new from comparison. No retropulsion or paravertebral edema. IMPRESSION: 1. Hepatosplenomegaly with hepatic steatosis. Anasarca with small volume of abdominal pelvic ascites. 2. Mild circumferential wall thickening of the ascending and transverse colon may be secondary to portal colopathy versus a nonspecific colitis. 3. No bowel obstruction. 4. Dependent bibasilar opacities favor atelectasis. 5. Normal appendix. 6. Additional findings as above. EGD > diffuse esoph candidiasis, mild gastritis; liver bx done
[2021-08-30] MEDS ORDERED: MIDODRINE HCL 10 MG TAB PO SCH (11:08)
[2021-08-30] MEDS ORDERED: ALBUMIN 25% 12.5 GM/50 ML VIAL IV ONE ×2 (11:08→12:00)
--- NOTE | 2021-08-30 11:09 | Hospitalist Progress Note ---
Date of Service August 30, 2021 Assessment & Plan (1) Bacteremia due to Gram-positive bacteria: (2) ESRD (end stage renal disease): (3) Chronic respiratory failure with hypoxia: (4) Cold agglutinin disease: (5) Cirrhosis: (6) Heart failure with preserved ejection fraction: Plan: per Dr. 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 on dialysis since May 2021 on Saturday schedule through temporary catheter left chest wall, chronic respiratory failure with hypoxia on 3L O2, diastolic heart failure, cirrhosis, cold agglutinin disease, previously required plasmapheresis, anemia, depression, hepatitis C, left IJ TDC thrombus presented to ER for positive blood cultures that was drawn in HD Bacteremia, Staph epidermidis L Chest wall HD cath Blood culture grew grew Staph epidermidis staphylococcus epidermidis DNA by PCR Negative Positive mecA/C (Methacillin Resistance Genes) Negative Positive She was started on daptomycin Repeat blood culture no growth Patient has a temporal left chest wall catheter for dialysis. if repeat blood culture positive, will need to remove the TDC Echo did not mention any vegetation noted If patient become febrile or deteriorates, will need to remove the left chest catheter dialysis CT abd/pelvis with contrast to eval for any source of infection. Nephro was ok to proceed with CT with IV contrast CT abd/pelvis did not showed any infectious source ID on board recommended to change daptomycin to Vancomycin to be given with dialysis and abx lock therapy until 09/08 tolerating antibiotics well continue Vanco with Lock Therapy until 09/08 then repeat Blood culture on 09/10 Ascites Liver Cirrhosis S/P paracentesis done where 5.2 L ascites fluid removed Ascitic fluid culture: no growth EGD and EUS showed diffuse esophageal candidiasis and mild gastritis. GI recommended to avoid anticoagulation and antiplatelet units for 72 hours Cipro 250 mg po x 3 days (prophylaxis given ascites) Diflucan for 10 days to treat the esophageal candidiasis resume Lovenox tomorrow continue PPI ESRD Progressive glomerulonephritis leading to ESRD Prednisone 10 mg daily, will taper to 5 mg on Saturday Last hemodialysis was on Saturday, hemodialysis on Saturday Nephrology on board Left IJ TDC thrombus. 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 Stable Obesity (BMI 30.0-34.9): Diet and exercise encouraged Monitor with titration up of SSRI PCOS (polycystic ovarian syndrome): Stable, has 2 children, boys, ages 4 and 6. DVT ppx Lovenox on hold for now due to recent EUS Will place SCD CODE: Full Disposition anticipate d/c home with home health services when medically stable Admission and Anticipated Discharge Date Admission Date: August 25, 2021 Subjective ff up for bacteremia, ascites, etc seen resting in bed, comfortable sleeping but easily awakened states she feels improved compared to admission no chills, nausea/vomiting reports mild epigastric pain- improving tolerating diet well no chest pain, dyspnea, palpitations, dizziness no other symptoms Review of Systems Review of Systems: all noted and negative except for above Physical Exam Physical Exam: General- oriented x 3, not in distress, speaks in sentences with no effort or accessory muscle use Head- atraumatic Eyes- PERRL, EOMI, anicteric ENT- oropharynx clear Neck- supple, no JVD, no adenopathy, no thyromegaly; carotids +2/2, no bruits appreciated Lungs- clear to auscultation bilaterally, no rales/wheezes Heart- normal rate, regular rhythm; no murmur, no gallop, no rub appreciated Abdomen- normal bowel sounds, nondistended, soft, mild tenderness on the epigastric region Extremities- no pretibial edema, no calf tenderness; peripheral pulses intact Neuro- alert, oriented x 3; CN 2-12 grossly intact; motor 5/5 bilaterally;sensation 100% on all extremities; no other gross focal neurologic deficits Skin- warm & dry Results & Data Results & Data ([facility]) Vital Signs (Past 12 Hours) Vital Signs Temp Pulse Pulse Resp BP Pulse Ox 08/30/21 06:30 36.6 C 88 16 85/51 L 98 08/30/21 03:58 36.7 C 82 16 97/65 L 93 08/30/21 00:00 88 08/29/21 23:21 36.5 C 93 H 16 97/62 L 94 all noted and reviewed including below
--- NOTE | 2021-08-30 13:14 | Pharmacy Report ---
Pharmacy Abx Dose Short Note - Date of Service August 30, 2021 - Assessment & Plan Assessment 41 year old F previously receiving daptomycin is now ordered vancomycin IV for treatment of gram-positive cocci bacteremia (Staphylococcus epidermidis) likely secondary to infected HD catheter. Plan is to salvage this line with concomitant antibiotic lock therapy with plan to remove line if patient deteriorates. Initial blood cultures 08/24 grew Staph. epidermidis (positive for mecA/C gene), repeat blood cultures from 08/25 show no growth at 48 hours, peritoneal fluid and throat cultures are pending. Typical HD schedule is Saturday, Saturday, Saturday. Day #4 of antimicrobial therapy. Plan is to continue antibiotics until 09/08/21. Plan Vancomycin * Random vancomycin level this am was ~30 mcg/ml * Plan for dialysis today, anticipate ~30% removal of medication with dialysis * Plan to hold further IV vancomycin doses for today, will plan to order a random level in the AM to assist with further dosing. Estimated level tomorrow still >15 mcg/ml Pharmacy will continue to follow and will adjust dose/frequency as necessary. Thank you.
[2021-08-30] MEDS ORDERED: ALBUMIN HUMAN 25% 12.5 GM/50 ML VIAL IV ONE (15:01)
[2021-08-30] MEDS: buprenorphine HCL 8 MG SUBL SL SCH (20:30)
[2021-08-31] MEDS: CIPROFLOXACIN / D5W 200 MG/100 ML BAG IV SCH (01:35)
[2021-08-31] MEDS: FOLIC ACID 1 MG TAB PO SCH ×2 (08:05→21:08)
[2021-08-31] MEDS: ACETAMINOPHEN 325 MG TAB PO PRN ×2 (08:05→20:02)
[2021-08-31] MEDS: SEVELAMER HCL 800 MG TABLET PO SCH ×3 (08:05→17:00)
[2021-08-31] MEDS: PANTOprazole 40 MG TAB PO SCH (08:06)
[2021-08-31] MEDS: CALCIUM 600MG + VIT D 400 IU TAB PO SCH (08:06)
[2021-08-31] MEDS: FLUCONAZOLE 50 MG TAB PO SCH (08:06)
[2021-08-31] MEDS: predniSONE 5 MG TAB PO SCH (08:06)
[2021-08-31] MEDS: LORazepam 0.5 MG TAB PO PRN ×2 (08:10→17:03)
--- NOTE | 2021-08-31 08:45 | Pharmacy Report ---
Pharmacy Abx Dose Short Note - Date of Service August 31, 2021 - Assessment & Plan Assessment 41 year old F previously receiving daptomycin is now ordered vancomycin IV for treatment of gram-positive cocci bacteremia (Staphylococcus epidermidis) likely secondary to infected HD catheter. Plan is to salvage this line with concomitant antibiotic lock therapy with plan to remove line if patient deteriorates. Initial blood cultures 08/24 grew Staph. epidermidis (positive for mecA/C gene), repeat blood cultures from 08/25 show no growth at 48 hours, peritoneal fluid and throat cultures are pending. Typical HD schedule is Saturday, Saturday, Saturday. Plan is to continue antibiotics until 09/08/21. Plan Vancomycin * Random vancomycin level this am was ~21 mcg/ml * Plan is for dialysis again tomorrow, therefore will hold further doses of vancomycin today * Anticipate level tomorrow will remain unchanged, therefore no need to order another level tomorrow * Plan to re-dose again with vancomycin after dialysis tomorrow Pharmacy will continue to follow and will adjust dose/frequency as necessary. Thank you.
--- NOTE | 2021-08-31 12:58 | Hospitalist Progress Note ---
Date of Service August 31, 2021 Assessment & Plan (1) Bacteremia due to Gram-positive bacteria: Plan: (1) Bacteremia due to Gram-positive bacteria: (2) ESRD (end stage renal disease): (3) Chronic respiratory failure with hypoxia: (4) Cold agglutinin disease: (5) Cirrhosis: (6) Heart failure with preserved ejection fraction: Plan: per Dr. 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 on dialysis since May 2021 on Saturday schedule through temporary catheter left chest wall, chronic respiratory failure with hypoxia on 3L O2, diastolic heart failure, cirrhosis, cold agglutinin disease, previously required plasmapheresis, anemia, depression, hepatitis C, left IJ TDC thrombus presented to ER for positive blood cultures that was drawn in HD Bacteremia, Staph epidermidis L Chest wall HD cath Blood culture grew grew Staph epidermidis She was started on daptomycin Repeat blood culture no growth Patient has a temporal left chest wall catheter for dialysis. if repeat blood culture positive, will need to remove the TDC Echo did not mention any vegetation noted If patient become febrile or deteriorates, will need to remove the left chest catheter dialysis CT abd/pelvis with contrast to eval for any source of infection. Nephro was ok to proceed with CT with IV contrast CT abd/pelvis did not showed any infectious source ID on board recommended to change daptomycin to Vancomycin to be given with dialysis and abx lock therapy until 09/08 tolerating antibiotics well continue IV Vanco and Vanco Lock Therapy until 09/08 repeat BC on 09/02, if still positive, will require HD cath removal Ascites Liver Cirrhosis S/P paracentesis done where 5.2 L ascites fluid removed Ascitic fluid culture: no growth EGD and EUS showed diffuseesophageal candidiasis and mild gastritis. GI recommended to avoid anticoagulation and antiplatelet units for 72 hours Cipro 250 mg po x 3 days (prophylaxis given ascites)- completed Diflucan for 10 days to treat the esophageal candidiasis- Day 01/11 resume Lovenox today for L IJ thrombus continue PPI ESRD Progressive glomerulonephritis leading to ESRD Prednisone 5 mg daily Nephrology on board Left IJ TDC thrombus. She has been on Lovenox since 08/18/2021 Monitor hemoglobin Gastro recommended to resume anticoagulant after 72 hours from the time of the EUS resume Lovenox today for L IJ thrombus Chronic respiratory failure Continue oxygen supplement, baseline Stable Diastolic CHF: Fluid management during dialysis Stable Anemia: cold Agglutinins related anemia - Hx of being on rituxan therapy and plasmapheresis Hemoglobin 9.5--> 8.8 Anxiety and depression: anxiety, PTSD, fear of going to appointments. Stable Obesity (BMI 30.0-34.9): Diet and exercise encouraged Monitor with titration up of SSRI PCOS (polycystic ovarian syndrome): Stable, has 2 children, boys, ages 4 and 6. DVT Lovenox 60mg daily CODE: Full Disposition pending repeat blood culture pending 09/02, if positive, may need HD cath removal plan of care discussed with patient in detail and at length all questions answered she is understanding, agreeable, comfortable with the plan of care Admission and Anticipated Discharge Date Admission Date: August 25, 2021 Subjective ff up for bacteremia, cirrhosis, etc seen resting in bed, comfortable states she mild central abdomen discomfort no nausea/vomiting, (+) BMs no fever/chills no chest pain, dyspnea, palpitations, dizziness no other symptoms Review of Systems Review of Systems: all noted and negative except for above Physical Exam Physical Exam: General- oriented x 3, not in distress, speaks in sentences with no effort or accessory muscle use Eyes- anicteric Neck- no JVD Lungs- clear breath sounds bilaterally, no rales/wheezes HD cath in place left chest wall Heart- normal rate, regular rhythm; no murmurs Abdomen- normal bowel sounds, nondistended, soft, nontender Extremities- no pretibial edema, no calf tenderness Neuro- alert, oriented x 3; no gross focal neurologic deficits Skin- warm & dry Results & Data Results & Data ([facility]) Vital Signs (Past 12 Hours) Vital Signs Temp Pulse Pulse Resp BP Pulse Ox 08/31/21 12:02 36.7 C 107 H 20 97/65 L 98 08/31/21 07:55 37.1 C 103 H 16 95/59 L 99 08/31/21 05:42 36.8 C 101 H 16 104/65 99 all noted and reviewed including below
[2021-08-31] MEDS: NICOTINE 14 MG/24 HR PATCH TD SCH (17:00)
[2021-08-31] MEDS: buprenorphine HCL 8 MG SUBL SL SCH (17:05)
--- NOTE | 2021-08-31 17:05 | Communication Note ---
Date of Service: August 31, 2021 Have ordered the following at the OP dialysis unit: -1 gm vancomycin to be given last hr of tx on 09/04 and 09/06 -1.25 gm vancomycin to be given last hr of tx on 09/08 -vancomycin antibiotic lock therapy to be given each lumen of TDC for all dialysis txs 09/04-09/08 per dialysis unit lock therapy protocol -blood cultures to be drawn 09/04 per inf dzs recommendation on lock therapy >>>>>pls have case mgt verify with outpatient dialysis unit sql database administrator Alyssa Khalil that they can do lock therapy on 09/04 ( I have sent them the order; they are checking whether they mix on site or need to have it shipped in. if shipping required we may have to come up with alternative plan to arrange lock therapy by this date)
[2021-08-31] MEDS: ENOXAPARIN INJ 60 MG/0.6 ML SYR SQ SCH (21:08)
[2021-09-01] MEDS: LORazepam 0.5 MG TAB PO PRN ×3 (01:55→15:33)
[2021-09-01 04:03] VITALS: TEMP 98.1; O2SAT 100
[2021-09-01] MEDS: SULFAMETHOXAZOLE/TRIMETHOPRIM DS 800/160MG TAB PO SCH (08:02)
[2021-09-01] MEDS: FOLIC ACID 1 MG TAB PO SCH (08:02)
[2021-09-01] MEDS: NICOTINE 14 MG/24 HR PATCH TD SCH (08:03)
[2021-09-01] MEDS: PANTOprazole 40 MG TAB PO SCH (08:03)
[2021-09-01] MEDS: predniSONE 5 MG TAB PO SCH (08:03)
[2021-09-01] MEDS: SEVELAMER HCL 800 MG TABLET PO SCH ×3 (08:03→17:38)
[2021-09-01] MEDS: CALCIUM 600MG + VIT D 400 IU TAB PO SCH (08:03)
[2021-09-01] MEDS: FLUCONAZOLE 50 MG TAB PO SCH (08:03)
[2021-09-01] MEDS ORDERED: EPOETIN ALFA 20,000 UNITS/ML VIAL IV ONE (09:03)
[2021-09-01] MEDS ORDERED: SODIUM CHLORIDE 0.9% 1000ML 1,000 ML IV PRN (09:03)
[2021-09-01] MEDS ORDERED: HEPARIN SOD (PORCINE) 1000 UNIT/ML IV ONE (09:03)
[2021-09-01] MEDS ORDERED: ALBUMIN 25% 12.5 GM/50 ML VIAL IV ONE ×2 (09:30→11:30)
[2021-09-01] MEDS ORDERED: EPOETIN ALFA 24,000 UNITS in SYRINGE 0 ML IV SCH (10:00)
--- NOTE | 2021-09-01 10:02 | Nephrology Progress Note ---
Date of Service September 01, 2021 Assessment & Plan (1) ESRD (end stage renal disease): Plan: for HD today w/ goal 3L UF; will resume heparin w/ tx Electrolytes are acceptable > Blood pressure remains soft -- 90-110s, asymptomatic -- but will use albumin w/ tx (no midodrine today); goal 3L UF Next dialysis will be 09/04 or as clinical needs dictate >>rheum recommends hold cytoxan while on abtx, cont pred 5 mg daily taper; I did send myself and rheum provider and my nurse pool an [facility] reminder dated for 09/08, the last day of abtx, to reeval cytoxan dose (2) Bacteremia due to Gram-positive bacteria: Plan: -Bacteremia Blood culture grew grew Staph epidermidis, methacillin resistant as OP only she did have F to 38.5 on 08/29, else afebrile the entire admission (though was 37.7 on presentation) She was started on daptomycin > now vanco Repeat blood cultures pending but NGTD -ID recs vanco and vanco lock therapy through 09/08 starting 08/31 lock therapy will be 25 mg vanco and 12,500 units heparin in 2.3mL NS; stable x 72 hrs -dialysis cath was accessed by nondialysis staff 08/30 -so far no recurrent F and f/u cxs NGTD; if these remain negative and eval for source/metastases also negative, would not necessarily change line -no evidence of infection nidus > TTE unremarkable as is abd/pelv CT and L spine XR; no groin wounds (3) Cirrhosis: Plan: As per GI. s/p 08/28 paracentesis 5.3L; f/u liver bx results; monitor liver #s on diflucan x 1 wk; also for cipro for SBP prophylaxis 72hr GI and hospitalist to reeval given RUQ pain and incre abd girth today Admission and Anticipated Discharge Date Admission Date: August 25, 2021 Subjective no interval events overnight but did wake up this morning with right upper quadrant pain and significant bilateral flank pain. The latter likely due to in creasing abdominal girth per patient. No nausea vomiting. Rating p.o. Denies worsening shortness of breath. No edema. States she is moving her bowels and passing urine normally and that a higher rate/amount than as outpatient.. States "all my problems started when I again that injection," by which she means Lovenox. Liver biopsy still pending Review of Systems Review of Systems: All systems reviewed & are unremarkable except as noted in Subjective Physical Exam Constitutional: well developed, well nourished, + frail appearing and coope rative; no acute distress Eyes: EOM intact bilaterally ENMT: Ears: no external ear abnormality Nose: no external nose abnormality Mouth: + dry oral mucous membranes Neck: no nuchal rigidity Respiratory: normal respiratory effort (on 02NC 2L) and able to speak in complete sentences Auscultation: + diminished lung sounds Cardiovascular: RRR, no murmur, no edema Gastrointestinal (Abdomen): Inspection/Auscultation: normal bowel sounds Percussion/Palpation: + abdomen tender (RUQ) and abdomen soft; no guarding 2- 3+ pitting edema BL flanks Musculoskeletal: Extremities: + abnormal strength Skin: no rashes, warm and dry Neurologic: collier, fluent speech, no tremor Psychiatric: Orientation: alert and oriented x 3 Results & Data ([facility]) Vital Signs (Past 12 Hours) Vital Signs Temp Pulse Pulse Resp BP Pulse Ox 09/01/21 08:00 36.7 C 92 H 14 110/75 100 09/01/21 04:02 36.7 C 81 22 104/64 100 08/31/21 23:37 36.9 C 88 24 99/61 L 98 08/31/21 23:00 82 Laboratory Results 08/30/21 05:35 08/30/21 05:35
[2021-09-01] MEDS ORDERED: ALBUMIN 25% 100 mL 25 GM/100 ML VIAL IV ONE (11:30)
[2021-09-01] MEDS: HEPARIN SOD (PORCINE) 1000 UNIT/ML IV SCH ×2 (13:46→14:39)
--- NOTE | 2021-09-01 13:57 | Gastroenterology Progress Note ---
Date of Service September 01, 2021 Assessment & Plan (1) Ascites: (2) Cirrhosis: Plan: Pt is a 41 yo F h/o ? 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 Had ABD CT 08/29; w/ small ascites. Now pt reports RUQ discomfort, return of some abd distention; though feels better than she did earlier today. Talks about wanting to go home. Soft abd. - Will arrange repeat paracentesis today, please send fluid for cell count and culture - Await LB results - Hepatic Doppler today, r/o PVT - Will defer diuretic dose to nephrology - Completed Cipro 250 mg po x 3 days (prophylaxis given ascites) - Diflucan for 10 days to treat the esophageal candidiasis - She has follow up with hepatology in September as outpt for further w/u liver disease. - Low NA diet < 2 gm daily - Avoid Tylenol > 2 gm daily - Avoid ETOH use and other hepatotoxins Thank you for allowing us to participate in the care of this patient. Please call with any acute changes, questions or concerns. Please see addendum below with additional recommendation from my supervising physician. Admission and Anticipated Discharge Date Admission Date: August 25, 2021 Supervising Physician Co-Signing Physician Notes I performed a history and physical examination of the patient today, including specifically on physical exam - soft abdomen. I have discussed the patient's management with the advanced practitioner. Please refer to the nurse practitioner's note for the documented findings and plan of care. She feels fine now and denies any abdominal pain. Does not have enough ascites hence tap was canceled. Doppler showed patent PV. Liver Bx showed cirrhosis, unclear etiology. She can follow up as OP with Hepatology clinic. Recall GI if needed. Subjective Patient seen and examined, chart reviewed. She was seen in dialysis this AM. We are asked to re-evaluate her as she is reporting some abd pain and abd distention. Reports to me she's had some RUQ discomfort overnight; feels abd maybe a little more distended. Today RUQ discomfort improved somewhat; thinks she may have slept on her equipment monitor phototypesetting wrong. Stool output is unchanged; no melena, hematochezia, hematemesis; eating ok. No nausea, vomiting, fever, chills, CP, SOB. Labs reviewed; stable. Review of Systems Review of Systems: All systems reviewed & are unremarkable except as noted in Subjective Physical Exam Constitutional: WD/WN, vitals as above chronically but not acutely ill Eyes: PERRL, conjunctivae normal, anicteric sclerae Respiratory: normal respiratory effort, lungs clear to auscultation Cardiovascular: RRR, no murmur, no edema Gastrointestinal (Abdomen): Soft, mild RUQ tenderness, no rebound, guarding; mild-moderate ascites, nontense, BS x 4 quads Skin: no rashes, warm and dry Psychiatric: A+Ox3, euthymic affect Results & Data ([facility]) Vital Signs (Past 12 Hours) Vital Signs Temp Pulse Pulse Resp BP BP Pulse Ox 09/01/21 12:40 92 H 90/60 L 09/01/21 12:20 86 84/51 L 09/01/21 12:00 55 L 105/90 09/01/21 11:40 87 94/63 L 09/01/21 11:20 88 96/64 L 09/01/21 11:00 89 98/64 L 09/01/21 10:40 88 97/66 L 09/01/21 10:20 102 H 113/66 09/01/21 10:09 36.7 C 99 H 95 H 104/67 09/01/21 08:00 36.7 C 82 92 H 14 110/75 100 09/01/21 04:02 36.7 C 81 22 104/64 100 Diagnostic Findings EUS 08/29: - There was no sign of significant pathology in the common bile duct. - Hyperechoic material consistent with sludge was visualized endosonographically in the gallbladder. - Pancreatic parenchymal abnormalities consisting of lobularity were noted in the entire pancreas. - Endosonographic images of the left adrenal gland were unremarkable. - There was abnormal echogenicity in the visualized portion of the liver. This was hyperechoic. The diagnosis is suggestive of fatty infiltration. Fine needle biopsy performed. CTAP 08/29: FINDINGS: Partially imaged catheter within the right atrium. Mild cardiomegaly. Dependent bibasilar linear consolidative opacities pneumatosis or pneumoperitoneum. Hepatosplenomegaly with hepatic steatosis redemonstrated. The liver measures up to 26.7 cm in length. The spleen measures 14.5 cm. Unremarkable pancreas and adrenal glands. Probable gallbladder sludge. Unremarkable kidneys. Mild urinary bladder wall thickening with partial distention. Uterus and adnexa appear unremarkable. Mild atherosclerosis of the aorta without aneurysm. No adenopathy. Small volume of abdominal pelvic ascites with generalized body wall edema. Small fat and fluid filled periumbilical hernia. There is mild circumferential wall thickening of the ascending and transverse colon. The appendix is normal. No acute fracture. Suspicious bone lesion. Moderate superior endplate Schmorl's nodes at L3 and L5 are new from comparison. No retropulsion or paravertebral edema IMPRESSION: 1. Hepatosplenomegaly with hepatic steatosis. Anasarca with small volume of abdominal pelvic ascites. 2. Mild circumferential wall thickening of the ascending and transverse colon may be secondary to portal colopathy versus a nonspecific colitis. 3. No bowel obstruction. 4. Dependent bibasilar opacities favor atelectasis. 5. Normal appendix. 6. Additional findings as above.
[2021-09-01] MEDS ORDERED: VANCOMYCIN HCL 1,000 MG in SODIUM CHLORIDE 0.9% 250 ML IV SCH (14:00)
--- NOTE | 2021-09-01 14:41 | Ultrasound Report ---
ULTRASOUND ASCITES CHECK CLINICAL HISTORY: Ascites check before paracentesis. COMPARISON STUDY: Abdominal CT dated 08/29/2021. FINDINGS: Real-time grayscale sonography of all 4 quadrants of the abdomen is performed to assess for ascites. There is only trace pelvic ascites. This was insufficient for paracentesis. IMPRESSION: Trace pelvic ascites which was insufficient for paracentesis. Electronically signed by: Jeff Ferrera M.D. 09/01/2021 2:40 PM
[2021-09-01 14:42] VITALS: BP 94/62
--- NOTE | 2021-09-01 14:54 | Ultrasound Report ---
US duplex portal hepatic veins HISTORY: 41 years-old Female abd pain, cirrhosis acute generalized abdominal pain with ascites and c irrhosis COMPARISON: CT abdomen and pelvis 08/29/2021 TECHNIQUE: Multiple real-time sonographic images of the hepatic vasculature was obtained assessing gr ayscale appearance, color and spectral flow. FINDINGS: Patent IVC, splenic and hepatic veins. The portal vein is patent with hepatopedal flow. Low resistanc e waveforms within the hepatic artery. Hepatomegaly with hepatic steatosis redemonstrated. Small volu me of abdominal ascites. IMPRESSION: Unremarkable hepatic vasculature. ACT 112: Negative or not required by law. The above report was generated using voice recognition software. It may contain grammatical, syntax o r spelling errors. Electronically signed by: Abe Quan M.D. 09/01/2021 2:53 PM
[2021-09-01 17:33] VITALS: PULSE 80
[2021-09-01] MEDS: buprenorphine HCL 8 MG SUBL SL SCH (17:38)
--- NOTE | 2021-09-01 17:58 | Hospitalist Progress Note ---
Date of Service September 01, 2021 Assessment & Plan (1) Bacteremia due to Gram-positive bacteria: Plan: (1) Bacteremia due to Gram-positive bacteria: (2) ESRD (end stage renal disease): (3) Chronic respiratory failure with hypoxia: (4) Cold agglutinin disease: (5) Cirrhosis: (6) Heart failure with preserved ejection fraction: Plan: per Dr. 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 on dialysis since April-May 2021 on Saturday schedule through temporary catheter left chest wall, chronic respiratory failure with hypoxia on 3L O2, diastolic heart failure, cirrhosis, cold agglutinin disease, previously required plasmapheresis, anemia, depression, hepatitis C, left IJ TDC thrombus presented to ER for positive blood cultures that was drawn in HD Bacteremia, Staph epidermidis L Chest wall HD cath Blood culture grew grew Staph epidermidis She was started on daptomycin Repeat blood culture no growth Patient has a temporal left chest wall catheter for dialysis. if repeat blood culture positive, will need to remove the TDC Echo did not mention any vegetation noted If patient become febrile or deteriorates, will need to remove the left chest catheter dialysis CT abd/pelvis with contrast to eval for any source of infection. Nephro was ok to proceed with CT with IV contrast CT abd/pelvis did not showed any infectious source ID on board recommended to change daptomycin to Vancomycin to be given with dialysis and abx lock therapy until 09/08 tolerating antibiotics well continue IV Vanco and Vanco Lock Therapy until 09/08 repeat BC on 09/04, if still positive, will require HD cath removal arrangements made for above treatment to continue with outpatient HD treatments c/o Dr. Candelario Ascites Liver Cirrhosis S/P paracentesis done where 5.2 L ascites fluid removed Ascitic fluid culture: no growth EGD and EUS showed diffuseesophageal candidiasis and mild gastritis. GI recommended to avoid anticoagulation and antiplatelet units for 72 hours Cipro 250 mg po x 3 days (prophylaxis given ascites)- completed Diflucan for 10 days to treat the esophageal candidiasis- Day 02/11 continue PPI ESRD Progressive glomerulonephritis leading to ESRD Prednisone 5 mg daily, hold Cytoxan for now until infection resolves per Dr. Chang - Dr. Candelario to coordinate with Dr. Bojorquez re: resuming Cytoxan Nephrology on board Left IJ TDC thrombus. She has been on Lovenox since 08/18/2021 Monitor hemoglobin Gastro recommended to resume anticoagulant after 72 hours from the time of the EUS resumed Lovenox for L IJ thrombus per discussion with Dr. 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 Stable Obesity (BMI 30.0-34.9): Diet and exercise encouraged Monitor with titration up of SSRI PCOS (polycystic ovarian syndrome): Stable, has 2 children, boys, ages 4 and 6. DVT Lovenox 60mg daily CODE: Full Disposition d/c home outpatient Vancomycin tx with HD ff up with PCP in 1 week ff up with Nephro, GI, Rheum as scheduled plan of care discussed with patient in detail and at length all questions answered she is understanding, agreeable, comfortable with the plan of care Admission and Anticipated Discharge Date Admission Date: August 25, 2021 Subjective ff up for bacteremia, etc seen resting in bed, sitting up in good spirits states she feels fine overall abdominal pain has resolved no nausea/vomiting no chest pain, dyspnea, palpitations, dizziness no other symptoms states she is ready and would like to be discharged today Review of Systems Review of Systems: all noted and negative except for above Physical Exam Physical Exam: General- oriented x 3, not in distress, speaks in sentences with no effort or accessory muscle use Eyes- anicteric Neck- no JVD Lungs- clear BS , no rales/wheezing bilaterally Heart- normal rate, regular rhythm; no murmurs HD cath in place - no bleeding or discharge Abdomen- normal bowel sounds, nondistended, soft, nontender Extremities- no pretibial edema, no calf tenderness Neuro- alert, oriented x 3; no gross focal neurologic deficits Skin- warm & dry Results & Data Results & Data ([facility]) Vital Signs (Past 12 Hours) Vital Signs Temp Pulse Pulse Pulse Pulse Pulse Resp 09/01/21 17:32 36.7 C 91 H 80 93 H 101 H 16 09/01/21 16:00 74 09/01/21 14:41 36.7 C 101 H 16 09/01/21 13:35 71 09/01/21 13:27 36.9 C 09/01/21 13:00 71 09/01/21 12:40 92 H 09/01/21 12:20 86 09/01/21 12:00 55 L 09/01/21 11:40 87 09/01/21 11:20 88 09/01/21 11:00 89 09/01/21 10:40 88 09/01/21 10:20 102 H 09/01/21 10:09 36.7 C 99 H 95 H 09/01/21 08:00 36.7 C 82 92 H 14 BP BP Pulse Ox 09/01/21 17:32 94/62 L 100 09/01/21 16:00 09/01/21 14:41 94/62 L 100 09/01/21 13:35 91/61 L 09/01/21 13:27 91/61 L 09/01/21 13:00 82/67 L 09/01/21 12:40 90/60 L 09/01/21 12:20 84/51 L 09/01/21 12:00 105/90 09/01/21 11:40 94/63 L 09/01/21 11:20 96/64 L 09/01/21 11:00 98/64 L 09/01/21 10:40 97/66 L 09/01/21 10:20 113/66 09/01/21 10:09 104/67 09/01/21 08:00 110/75 100 all noted and reviewed including below
--- NOTE | 2021-09-01 18:01 | Discharge Summary ---
Date of Service September 01, 2021 Admission HPI Per Admitting Provider Patient is 41-year-old female with complicated PMH of progressive glomerulonephritis leading to ESRD on dialysis since April-May 2021 on Saturday schedule through temporary catheter left chest wall, chronic respiratory failure with hypoxia on 3L O2, diastolic heart failure, cirrhosis, cold agglutinin disease, previously required plasmapheresis, anemia, depression, hepatitis C, left IJ TDC thrombus presented to ER for positive blood cultures. Last week reported fever and had negative outpatient blood cultures. Reports fever again 2 days ago. Outpatient blood cultures drawn 08/24/2021 and are pos itive for gram positive cocci. Denies cough. Patient reports generalized weakness since starting dialysis in the summer. She denies any increased shortness of breath. Denies chest pain. Patient reports is to have fistula placed to left upper extremity next week [place] [facility]. Reports increased abdominal girth and reports some discomfort with waist band touching abdomen but denies abdominal pain with pants off. Had outpatient US abdomen for ascites with results of Moderate volume ascites within the midline, right upper, right lower and left lower quadrants. Trace ascites within the left upper quadrant. Reports makes very small amount of urine-couple of drops a day. Denies dysuria or noted hematuria. Has been on Lovenox since 08/18/2021 for left IJ TDC thrombus. Denies nausea, vomiting, diarrhea BOOTH, dizziness, syncope, vision changes, neck pain, CP, palpitations, cough, sore throat, choking, otalgia, rhinorrhea, extremity edema, rashes. In ER T: 37.7, P: 100, R: 16, BP 107/58, 97% on 2L. WBC: 14 H/H: 09/03, PLT: 129, lactate: 4.6, procalcitonin: 1.3, negative COVID-19 PCR, CXR: No infiltrate In ER given Rocephin 1 g IV, vancomycin, 1 L NSS Admission Exam (Per Admitting) Constitutional General: no acute distress, chronic ill appearing Head: normocephalic, atraumatic Eyes: PERRL, EOM's intact, conjunctiva non-injected, +icteric ENT: normal inspection external ears, nose, mucous membranes moist Neck: supple, trachea midline Lungs: no respiratory distress, on 2.5L via NC, no wheezing/rhonchi/rales CV: RRR, trace pretibial edema, chest wall: Left chest with catheter in place without surrounding erythema Abd: + Distended, + ecchymosis, normal BS, firm, non-tender to palpation Ext: no cyanosis, no calf tenderness Neuro: A&O x 3, no focal deficits noted, normal affect Skin: warm, dry Discharge Data Consultations 08/25/21 20:54 ED Decision to Admit Stat 08/25/21 21:06 ED Decision to Admit Stat 08/25/21 23:48 Consult Gastroenterology Routine Consult Nephrology Routine 08/28/21 01:27 Consult Infectious Diseases Routine Procedures Performed Operation Date: 08/29/21 12:05 Actual Procedures p Endoscopic Ultrasonography Upper(Not Applicable) - Irlanda Woods DO s Esophagogastroduodenoscopy(Not Applicable) - Irlanda Woods DO ABDOMEN AND PELVIS CT WITH IV CONTRAST CT DOSE: 877.12 mGy.cm HISTORY: Acute sepsis R/o any source of infection TECHNIQUE: Multiaxial CT images of the abdomen and pelvis were performed following the IV administration of 94 cc of Optiray, A dose lowering technique was utilized adhering to the principles of ALARA. COMPARISON STUDY: CT abdomen and pelvis 07/30/2020, ultrasound-guided paracentesis 08/28/2021. FINDINGS: Partially imaged catheter within the right atrium. Mild cardiomegaly. Dependent bibasilar linear consolidative opacities pneumatosis or pneumoperitoneum. Hepatosplenomegaly with hepatic steatosis redemonstrated. The liver measures up to 26.7 cm in length. The spleen measures 14.5 cm. Unremarkable pancreas and adrenal glands. Probable gallbladder sludge. Unremarkable kidneys. Mild urinary bladder wall thickening with partial distention. Uterus and adnexa appear unremarkable. Mild atherosclerosis of the aorta without aneurysm. No adenopathy. Small volume of abdominal pelvic ascites with generalized body wall edema. Small fat and fluid filled periumbilical hernia. There is mild circumferential wall thickening of the ascending and transverse colon. The appendix is normal. No acute fracture. Suspicious bone lesion. Moderate superior endplate Schmorl's nodes at L3 and L5 are new from comparison. No retropulsion or paravertebral edema. IMPRESSION: 1. Hepatosplenomegaly with hepatic steatosis. Anasarca with small volume of abdominal pelvic ascites. 2. Mild circumferential wall thickening of the ascending and transverse colon may be secondary to portal colopathy versus a nonspecific colitis. 3. No bowel obstruction. 4. Dependent bibasilar opacities favor atelectasis. 5. Normal appendix. 6. Additional findings as above. ACT 112: Negative or not required by law. Hospital Course (1) Bacteremia due to Gram-positive bacteria: (1) Bacteremia due to Gram-positive bacteria: (2) ESRD (end stage renal disease): (3) Chronic respiratory failure with hypoxia: (4) Cold agglutinin disease: (5) Cirrhosis: (6) Heart failure with preserved ejection fraction: Plan: per Dr. 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 on dialysis since April-May 2021 on Saturday schedule through temporary catheter left chest wall, chronic respiratory failure with hypoxia on 3L O2, diastolic heart failure, cirrhosis, cold agglutinin disease, previously required plasmapheresis, anemia, depression, hepatitis C, left IJ TDC thrombus presented to ER for positive blood cultures that was drawn in HD Bacteremia, Staph epidermidis L Chest wall HD cath Blood culture grew grew Staph epidermidis She was started on daptomycin Repeat blood culture no growth Patient has a temporal left chest wall catheter for dialysis. if repeat blood culture positive, will need to remove the TDC Echo did not mention any vegetation noted If patient become febrile or deteriorates, will need to remove the left chest catheter dialysis CT abd/pelvis with contrast to eval for any source of infection. Nephro was ok to proceed with CT with IV contrast CT abd/pelvis did not showed any infectious source ID on board recommended to change daptomycin to Vancomycin to be given with dialysis and abx lock therapy until 09/08 tolerating antibiotics well continue IV Vanco and Vanco Lock Therapy until 09/08 repeat BC on 09/04, if still positive, will require HD cath removal arrangements made for above treatment to continue with outpatient HD treatments c/o Dr. Candelario Ascites Liver Cirrhosis S/P paracentesis done where 5.2 L ascites fluid removed Ascitic fluid culture: no growth EGD and EUS showed diffuseesophageal candidiasis and mild gastritis. GI recommended to avoid anticoagulation and antiplatelet units for 72 hours Cipro 250 mg po x 3 days (prophylaxis given ascites)- completed Diflucan for 10 days to treat the esophageal candidiasis- Day 02/11 continue PPI ESRD Progressive glomerulonephritis leading to ESRD Prednisone 5 mg daily, hold Cytoxan for now until infection resolves per Dr. Chang - Dr. Candelario to coordinate with Dr. Bojorquez re: resuming Cytoxan Nephrology on board Left IJ TDC thrombus. She has been on Lovenox since 08/18/2021 Monitor hemoglobin Gastro recommended to resume anticoagulant after 72 hours from the time of the EUS resumed Lovenox for L IJ thrombus per discussion with Dr. Candelario and [facility] Pharmacist, recommendation is to transition from Lovenox to Eliquis 2.5mg BID given ESRD/HD status Chronic respiratory failure Continue oxygen supplement, baseline Stable Diastolic CHF: Fluid management during dialysis Stable Anemia: cold Agglutinins related anemia - Hx of being on rituxan therapy and plasmapheresis Hemoglobin 9.5--> 8.8 monitor as outpatient Anxiety and depression: anxiety, PTSD, fear of going to appointments. Stable Obesity (BMI 30.0-34.9): Diet and exercise encouraged Monitor with titration up of SSRI PCOS (polycystic ovarian syndrome): Stable, has 2 children, boys, ages 4 and 6. DVT Lovenox 60mg daily CODE: Full Disposition d/c home outpatient Vancomycin tx with HD ff up with PCP in 1 week ff up with Nephro, GI, Rheum as scheduled plan of care discussed with patient in detail and at length all questions answered she is understanding, agreeable, comfortable with the plan of care
[2021-09-02] MEDS ORDERED: APIXABAN 2.5 MG TAB PO SCH (09:00)
== END 2021-09-01 18:28 | disposition home or self-care (01) | DRG 981 ==
LOC: ED 19:55 → EDINP 23:10 → SUATTDRO 23:10 → 2S 08-26 15:48 → 2W 08-28 20:53 → PACUINP 08-29 14:22 → 2S 08-29 17:13

== ENCOUNTER 2021-09-19 07:02 | Inpatient (IN) ==
[2021-09-19] MEDS ORDERED: PHYTONADIONE 10 MG in SODIUM CHLORIDE 0.9% 50 ML IV ONE (07:49)
[2021-09-19] MEDS ORDERED: SODIUM CHLORIDE 0.9% 250 ML IV PRN ×3 (07:51→16:56)
--- NOTE | 2021-09-19 07:59 | Emergency Department Note ---
Impression & Plan Anemia, Elevated INR, Bleeding, Coagulopathy ED Provider Note NAME: ELYSSA MURRAY AGE: 41 SEX: F : 1980 ARRIVES VIA: Ambulance INFORMANT: [Patient][nursing] ED PROVIDER(S): [Jeff Eid MD] CHIEF COMPLAINT: Abnormal labs HISTORY OF PRESENT ILLNESS: The patient is a 41-year-old female who presents with abnormal laboratory testing. Her INR was 8, hemoglobin was 6.8. 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 She had dialysis on Saturday, yesterday, without complication. She had laboratory work drawn and was called because of the abnormal values. The patient was to stop her Coumadin with her last hospitalization. She admits that she may have been taking the Coumadin longer than she should have. She is now on Eliquis as well. The patient has noticed some oozing and discharge from an area along the right abdominal wall. She thinks the wound is actually better than it was. There was some puslike discharge initially, now the discharge is clear. The patient has had some bleeding from her lips, her gums and from some ulcers in her mouth. She also has an area of bleeding to the right forehead where she washed her face and scratched herself accidentally. The scratch just will not stop bleeding. Patient has noticed some black stool, it was initially runny but now is formed. No abdominal pain, no chest pain, no shortness of breath. The patient was in our hospital recently. She had a paracentesis however, the fluid was taken from the left abdomen, not the right abdomen where she has the abdominal wound. REVIEW OF SYSTEMS: See HPI for pertinent positives and negatives. A total of ten systems were reviewed and were otherwise negative. PMHx/PSHx: See Below SOCIAL HISTORY: See Below. PHYSICAL EXAM: GENERAL: Patient is in no acute distress. HEENT: No acute trauma, normocephalic atraumatic, mucous membranes moist, no nasal congestion, no scleral icterus. Poor dentition. She has oozing of blood from some blisters along her mucous membranes, she has oozing of blood from her gumline. She is bleeding from an abrasion to her lower mid lip. There is blood oozing from what appears to be an abrasion to the right forehead. NECK: No stridor, no adenopathy, no meningismus, trachea is midline. LUNGS: Clear to auscultation bilaterally, no wheeze, no rhonchi, breath sounds equal. HEART: 2/6 systolic murmur, regular rate and rhythm. ABDOMEN: Soft, nontender, bowel sounds positive, small nontender umbilical hernia, no peritonitis. Abdominal distention noted. There is an open wound to the right lateral abdomen about 2 cm in size. No puslike discharge, no surrounding erythema. Clear fluid was noted. EXTREMITIES: No cyanosis or edema, full range of motion of all the joints without pain or difficulty, no signs for acute trauma. NEUROLOGIC: Oriented x 3, no acute motor or sensory deficits, no focal weakness. SKIN: No rash, no diaphoresis. DIFFERENTIAL DIAGNOSIS: Coagulopathy, anemia, GI bleeding, medication reaction, electrolyte imbalance, ascites, cellulitis, abscess, IL, thrombocytopenia, among others. EMERGENCY DEPARTMENT COURSE/PROCEDURES: ECG: Indication was tachycardia. The ECG shows a sinus tachycardia with a rate of 105. There is no ST ovation, no PVCs. The QTc is 444. Continuous Cardiac Monitoring: An order was placed for continuous cardiac monitoring. The monitor shows a rate of 104 with sinus tachycardia. Critical Care Note: I have personally spent 62 minutes of critical care time in the direct management of this patient. This includes bedside care, interpretation of diagnostic studies, and testing, discussion with consultants, patient, and family members, and other required patient management activities. This 62 minutes is in excess of all separately billable procedures. MEDICAL DECISION MAKING: There is no leukocytosis. The patient is anemic with a hemoglobin of 5.6. Platelet count somewhat low at 124. Coagulopathy with an INR greater than 10.7. PTT is also elevated. There is some elevation to the BUN and creatinine cons istent with her dialysis need. The potassium was normal. Magnesium somewhat low at 1.6. There were some subtle liver enzyme elevations. The patient's TSH was high however, the T4 was normal. ECG shows a sinus tachycardia, no acute ischemia. Cardiac enzyme testing x1 is not consistent with acute cardiac injury. Covid test is negative. Chest film did not show pneumonia or CHF. Abdominal CT shows ascites. There is a wound along the right abdomen on CT consistent with what was seen clinically. No abscess mentioned. The patient was complaining of black stool consistent with GI bleeding. She was bleeding from her mouth, her lips and a scrape on the forehead. The patient was aggressively managed. She received PCC, IV vitamin K. She was given 1 unit of packed red blood cells. She did sign consent for the blood transfusion. The patient is in need of a hospital stay. She is quite coagulopathic. This has led to bleeding and anemia. Further resuscitation, further care and testing is required in the hospital. I spoke with the patient and family independence case manager. The on-call hospitalist was consulted. Of note, I did speak with our coagulation hospice consultant, she recommended the PCC administration. With regard to the right sided abdominal wound, this should heal with conservative measures. It does not appear infected currently. She may require wound care management. Past Med/Surg History Medical History Acute hypokalemia Anemia Chronic respiratory failure with hypoxia Cirrhosis Cold agglutinin disease ESRD (end stage renal disease) Heart failure with preserved ejection fraction Hepatomegaly Hypomagnesemia Pleural effusion on left Pleural effusion on right Proteinuria Pulmonary edema Smoker Surgical History History of bronchoscopy Hx of cardiac cath 08/15/2020: Right and left heart cath at [facility] [place] Family History Mother Lupus (systemic lupus erythematosus) Social History Smoking Status: Never smoker Tobacco Type: Cigarettes Cigarettes Per Day: 3; Hx Alcohol Use: No Hx Substance Use: Yes Last Used Substance: Unknown Last Used Substance Other:: 04/03/2021 medical marijuana Substance Use Type Other:: former pain killers. Is on Saboxen and medical marijuana Preferred Language: Somali Communication Ability: Effective Fulfillment Mail Clerk Required: No Beliefs That Will Affect Care: None marital status: engaged Current Living Situation: Spouse Current Living Situation Comment: fiancee and 2 kids How many Children do You have: 2 Feels Safe at Home: Yes Assistive Devices: Oxygen - Continuous Allergies Allergies Allergy/AdvReac Type Severity Reaction Status Date / Time green pepper Allergy Severe Anaphylaxis Verified 09/19/21 08:55 mushroom Allergy Severe ANAPHYLAXIS Verified 09/19/21 08:55 onion Allergy Severe ANAPHYLAXIS Verified 09/19/21 08:55 tramadol Allergy Mild RASH AND Verified 09/19/21 08:55 ITCHING ketorolac Allergy Unknown RASH Verified 09/19/21 08:55 Home Meds Home Medications Medication Instructions Recorded Confirmed folic acid 1 mg tablet 1 mg PO BID 07/30/20 09/19/21 calcium carbonate 600 mg (1,500 1 tab PO QAM 04/18/21 09/19/21 mg)-vitamin D3 400 unit tablet (Calcium 600 + D(3)) buprenorphine HCl 8 mg sublingual 8 mg SUBLINGUAL QAM 08/25/21 09/19/21 tablet omeprazole 20 mg capsule,delayed 20 mg PO QAM 08/25/21 09/19/21 release sevelamer carbonate 800 mg tablet 800 mg PO TIDM 08/25/21 09/19/21 sulfamethoxazole 800 1 tab PO 3XWK 08/25/21 09/19/21 mg-trimethoprim 160 mg tablet magnesium oxide 400 mg (241.3 mg 400 mg PO DAILY 09/19/21 09/19/21 magnesium) tablet prednisone 5 mg tablet 5 mg PO QAM 09/19/21 09/19/21 Previous Rx's Medication Instructions Recorded apixaban 2.5 mg tablet (Eliquis) 2.5 mg PO BID 30 Days #60 tab 09/01/21 Results & Data (ED) Vital Signs Vital Signs - 24 hr 09/19/21 07:10 09/19/21 08:43 09/19/21 10:00 Temperature 36.5 C Temperature Source Oral Pulse Rate 105 H Pulse Rate [Left Finger] 105 H 72 Pulse Rhythm Regular Pulse Strength Normal Respiratory Rate 18 18 20 Blood Pressure 119/96 Blood Pressure [Left Arm] 119/96 96/60 L Blood Pressure Mean 103 Blood Pressure Mean [Left Arm] 103 72 Blood Pressure Position Sitting Blood Pressure Position [Left Arm] Sitting Sitting Pulse Oximetry 98 98 96 Oxygen Delivery Method Room Air Oxygen Flow Rate Sepsis Recent Fever Within 48 Hours No Sepsis New/Unexplained Change in Mental Status No Sepsis Action Taken by Nursing No Action Required 09/19/21 10:50 09/19/21 11:04 09/19/21 11:06 Temperature 36.7 C 36.7 C 37.4 C Temperature Source Oral Oral Oral Pulse Rate 95 H 91 H 97 H Pulse Rate [Left Finger] Pulse Rhythm Pulse Strength Respiratory Rate 20 16 20 Blood Pressure 99/67 L 99/69 L 109/72 Blood Pressure [Left Arm] Blood Pressure Mean 77 79 84 Blood Pressure Mean [Left Arm] Blood Pressure Position Sitting Sitting Lying Blood Pressure Position [Left Arm] Pulse Oximetry 100 100 100 Oxygen Delivery Method Oxygen Flow Rate 2 5 Sepsis Recent Fever Within 48 Hours Sepsis New/Unexplained Change in Mental Status Sepsis Action Taken by Nursing 09/19/21 13:00 Temperature Temperature Source Pulse Rate Pulse Rate [Left Finger] 88 Pulse Rhythm Pulse Strength Respiratory Rate 20 Blood Pressure Blood Pressure [Left Arm] 112/62 Blood Pressure Mean Blood Pressure Mean [Left Arm] 78 Blood Pressure Position Blood Pressure Position [Left Arm] Sitting Pulse Oximetry 100 Oxygen Delivery Method Oxygen Flow Rate Sepsis Recent Fever Within 48 Hours Sepsis New/Unexplained Change in Mental Status Sepsis Action Taken by Prison Medications Current Medication List: was personally reviewed by me Laboratory Data Attestation: I reviewed the patient's lab results. Result diagrams: 09/19/21 08:01 09/19/21 08:01 Lab Results 09/19/21 09/19/21 09/19/21 Range/Units 08:01 08:01 08:01 WBC 10.28 (4.8-10.8) K/uL RBC 1.62 L (4.2-5.4) M/uL Hgb 5.6 L* (12.0-16.0) g/dL Hct 18.2 L* (37-47) % MCV 112.3 H (80-100) fL MCH 34.6 H (25-34) pg MCHC 30.8 L (32-36) g/dL RDW Std Deviation 91.7 H (36.4-46.3) fL RDW Coeff of Christine 22.8 H (11.5-14.5) % Plt Count 124 L (130-400) K/uL MPV 11.1 H (7.4-10.4) fL Immature Gran % (Auto) 1.1 % Neut % (Auto) 77.7 % Lymph % (Auto) 10.7 % Page % (Auto) 9.8 % Eos % (Auto) 0.4 % Baso % (Auto) 0.3 % Neut # (Auto) 7.99 H (1.4-6.5) K/uL Lymph # (Auto) 1.10 L (1.2-3.4) K/uL Page # (Auto) 1.01 H (0.11-0.59) K/uL Eos # (Auto) 0.04 (0-0.5) K/uL Baso # (Auto) 0.03 (0-0.2) K/uL Immature Gran # (Auto) 0.11 H (0.00-0.02) K/uL Absolute Nucleated RBC 0.04 H (0-0) K/uL Nucleated RBC % (auto) 0.4 % Polychromasia 1+ Macrocytosis Present Target Cells 1+ PT Cancelled INR Cancelled APTT Cancelled PTT Ratio Cancelled Sodium 138 (136-145) mmol/L Potassium 4.2 (3.5-5.1) mmol/L Chloride 108 H (98-107) mmol/L Carbon Dioxide 22 (21-32) mmol/L Anion Gap 8.0 (3-11) BUN 25 H (7-18) mg/dl Creatinine 2.84 H (0.6-1.2) mg/dl Est Cr Clr Drug Dosing 23.7 ml/min Est GFR ( Amer) 23.3 ml/min Est GFR (Non-Af Amer) 20.1 ml/min BUN/Creatinine Ratio 8.9 L (10-20) Glucose 85 (70-99) mg/dl Calcium 8.0 L (8.5-10.1) mg/dl Magnesium 1.6 L (1.8-2.4) mg/dl Total Bilirubin 1.2 H (0.2-1) mg/dl AST 49 H (15-37) U/L ALT 20 (12-78) U/L Alkaline Phosphatase 148 H (45-117) U/L Troponin I < 0.015 (0-0.045) ng/ml Total Protein 5.5 L (6.4-8.2) gm/dl Albumin 1.8 L (3.4-5.0) gm/dl Globulin 3.7 (2.5-4.0) gm/dl Albumin/Globulin Ratio 0.5 L (0.9-2) TSH 5.950 H (0.300-4.500) uIu/ml Free T4 0.99 (0.8-1.6) ng/dl COVID-19 Eval Order SARS-CoV-2 (PCR) (Negative) Blood Type Antibody Screen Crossmatch 09/19/21 09/19/21 09/19/21 Range/Units 08:01 08:28 08:28 WBC (4.8-10.8) K/uL RBC (4.2-5.4) M/uL Hgb (12.0-16.0) g/dL Hct (37-47) % MCV (80-100) fL MCH (25-34) pg MCHC (32-36) g/dL RDW Std Deviation (36.4-46.3) fL RDW Coeff of Christine (11.5-14.5) % Plt Count (130-400) K/uL MPV (7.4-10.4) fL Immature Gran % (Auto) % Neut % (Auto) % Lymph % (Auto) % Page % (Auto) % Eos % (Auto) % Baso % (Auto) % Neut # (Auto) (1.4-6.5) K/uL Lymph # (Auto) (1.2-3.4) K/uL Page # (Auto) (0.11-0.59) K/uL Eos # (Auto) (0-0.5) K/uL Baso # (Auto) (0-0.2) K/uL Immature Gran # (Auto) (0.00-0.02) K/uL Absolute Nucleated RBC (0-0) K/uL Nucleated RBC % (auto) % Polychromasia Macrocytosis Target Cells PT INR APTT PTT Ratio Sodium (136-145) mmol/L Potassium (3.5-5.1) mmol/L Chloride (98-107) mmol/L Carbon Dioxide (21-32) mmol/L Anion Gap (3-11) BUN (7-18) mg/dl Creatinine (0.6-1.2) mg/dl Est Cr Clr Drug Dosing ml/min Est GFR ( Amer) ml/min Est GFR (Non-Af Amer) ml/min BUN/Creatinine Ratio (10-20) Glucose (70-99) mg/dl Calcium (8.5-10.1) mg/dl Magnesium (1.8-2.4) mg/dl Total Bilirubin (0.2-1) mg/dl AST (15-37) U/L ALT (12-78) U/L Alkaline Phosphatase (45-117) U/L Troponin I (0-0.045) ng/ml Total Protein (6.4-8.2) gm/dl Albumin (3.4-5.0) gm/dl Globulin (2.5-4.0) gm/dl Albumin/Globulin Ratio (0.9-2) TSH (0.300-4.500) uIu/ml Free T4 (0.8-1.6) ng/dl COVID-19 Eval Order Covid19 at [facility] SARS-CoV-2 (PCR) NEGATIVE (Negative) Blood Type A Positive Antibody Screen NEGATIVE Crossmatch See Detail 09/19/21 Range/Units 08:54 WBC (4.8-10.8) K/uL RBC (4.2-5.4) M/uL Hgb (12.0-16.0) g/dL Hct (37-47) % MCV (80-100) fL MCH (25-34) pg MCHC (32-36) g/dL RDW Std Deviation (36.4-46.3) fL RDW Coeff of Christine (11.5-14.5) % Plt Count (130-400) K/uL MPV (7.4-10.4) fL Immature Gran % (Auto) % Neut % (Auto) % Lymph % (Auto) % Page % (Auto) % Eos % (Auto) % Baso % (Auto) % Neut # (Auto) (1.4-6.5) K/uL Lymph # (Auto) (1.2-3.4) K/uL Page # (Auto) (0.11-0.59) K/uL Eos # (Auto) (0-0.5) K/uL Baso # (Auto) (0-0.2) K/uL Immature Gran # (Auto) (0.00-0.02) K/uL Absolute Nucleated RBC (0-0) K/uL Nucleated RBC % (auto) % Polychromasia Macrocytosis Target Cells PT > 90.0 H INR > 10.7 H* APTT 93.0 H* PTT Ratio 3.5 Sodium (136-145) mmol/L Potassium (3.5-5.1) mmol/L Chloride (98-107) mmol/L Carbon Dioxide (21-32) mmol/L Anion Gap (3-11) BUN (7-18) mg/dl Creatinine (0.6-1.2) mg/dl Est Cr Clr Drug Dosing ml/min Est GFR ( Amer) ml/min Est GFR (Non-Af Amer) ml/min BUN/Creatinine Ratio (10-20) Glucose (70-99) mg/dl Calcium (8.5-10.1) mg/dl Magnesium (1.8-2.4) mg/dl Total Bilirubin (0.2-1) mg/dl AST (15-37) U/L ALT (12-78) U/L Alkaline Phosphatase (45-117) U/L Troponin I (0-0.045) ng/ml Total Protein (6.4-8.2) gm/dl Albumin (3.4-5.0) gm/dl Globulin (2.5-4.0) gm/dl Albumin/Globulin Ratio (0.9-2) TSH (0.300-4.500) uIu/ml Free T4 (0.8-1.6) ng/dl COVID-19 Eval Order SARS-CoV-2 (PCR) (Negative) Blood Type Antibody Screen Crossmatch Administered Medications Pantoprazole Sodium 40 mg/ (Dextrose) 100 mls @ 20 mls/hr IV Q5H ALLY Stop: 10/19/21 11:59 Last Admin: 09/19/21 12:28 Dose: 8 mg/hr, 20 mls/hr Documented by: [id number] Discontinued Medications Phytonadione 10 mg/ Sodium (Chloride) 51 mls @ 102 mls/hr IV ONE ONE Stop: 09/19/21 08:18 Last Admin: 09/19/21 08:25 Dose: 102 mls/hr Documented by: [id number] Prothrombin Complex Concent ( (Human) 3,500 units/ Syringe) 140 mls @ 10 mls/min IV NOW ONE; Protocol Stop: 09/19/21 09:43 Last Admin: 09/19/21 09:15 Dose: 10 mls/min Documented by: [id number] Pantoprazole Sodium 80 mg/ (Dextrose) 120 mls @ 400 mls/hr IV NOW ONE Stop: 09/19/21 11:33 Last Admin: 09/19/21 13:13 Dose: 400 mls/hr Documented by: [id number] Imaging Data Radiologist's Impression: Abdomen/Pelvis CT 09/19/21 07:[address] WITHOUT CONTRAST CT DOSE: 650.78 mGy.cm HISTORY: Fluid overload with ascites and right-sided abdominal wound poss ascities, right sided abd wound, dialysis pt TECHNIQUE: Multiaxial CT images of the abdomen and pelvis were performed without contrast. A dose lowering technique was utilized adhering to the principles of ALARA. COMPARISON STUDY: CT abdomen and pelvis 08/29/2021 FINDINGS: Partially imaged catheter within the right atrium. Cardiomegaly with decreased attenuation of the cardiac blood pool suggestive of anemia. Mild patchy bibasilar groundglass nodular opacities. Calcified granulomata of the right middle lobe. Trace left pleural effusion. There is no pneumatosis or pneumoperitoneum. Hepatosplenomegaly with hepatic steatosis redemonstrated. The liver measures up to 26.7 cm in length. The spleen measures 14.5 cm. Mild marginal nodularity of the liver suggested. Unremarkable pancreas and adrenal glands. Hyperdense layering material within the dependent gallbladder. The gallbladder is distended and demonstrates mild wall thickening. Unremarkable kidneys. Decompressed urinary bladder. Uterus and adnexa appear unremarkable. Mild atherosclerosis of the aorta without aneurysm. No adenopathy. Moderate abdominal pelvic ascites has progressed from comparison. There is generalized body wall edema. Small fat and fluid filled periumbilical hernia. No bowel obstruction or bowel wall thickening. The appendix is normal. Subcutaneous emphysema of the right lateral abdominal wall is noted with associated skin thickening, subcutaneous edema and small hematomas measuring up to 2.1 cm. No acute fracture or suspicious bone lesion. Moderate superior endplate Schmorl's nodes at L3 and L5 are unchanged from comparison. No retropulsion or paraverteb ral edema. IMPRESSION: 1. Moderate abdominal pelvic ascites has increased from comparison. Trace left pleural effusion with mild body wall edema. 2. Skin thickening with subcutaneous edema and emphysema of the right lateral flank with small subcutaneous hematomas measuring up to 2.1 cm. This may be related to a medicinal injection site. Correlate with clinical exam findings. 3. Hepatosplenomegaly with hepatic steatosis and suggested cirrhosis. 4. Distended gallbladder with sludge versus cholelithiasis. 5. No bowel obstruction or bowel wall thickening. 6. Additional findings as above. ACT 112: Negative or not required by law. The above report was generated using voice recognition software. It may contain grammatical, syntax or spelling errors. Electronically signed by: Abe Quan M.D. 09/19/2021 9:10 AM Chest X-Ray 09/19/21 07:50 XR chest 1V portable HISTORY: 41 years-old Female weakness acute weakness COMPARISON: Chest radiograph 08/25/2021 TECHNIQUE: Portable AP view of the chest FINDINGS: Cardiac mediastinal and hilar silhouettes are within normal limits. The lumen hemodialysis catheter is noted with distal tip in the expected location of the right atrium. No pneumothorax, large pleural effusion, overt pulmonary edema or focal airspace consolidation. The cardiomediastinal and hilar silhouettes are within normal limits. No acute fracture. IMPRESSION: No acute process. ACT 112: Negative or not required by law. The above report was generated using voice recognition software. It may contain grammatical, syntax or spelling errors. Electronically signed by: Abe Quan M.D. 09/19/2021 8:31 AM Discharge Plan Visit Data Chief Complaint: Abnormal Labs/Diagnostic Testing ED Provider: Jeff Eid Discharge Problem: Anemia, Elevated INR, Bleeding, Coagulopathy Patient Disposition: Admitted As Inpatient Condition: Serious Forms Stand Alone Forms: [facility] Prescriptions Prescriptions: No Action folic acid 1 mg tablet 1 mg PO BID RF: 0 buprenorphine HCl 8 mg tablet, sublingual 8 mg SUBLINGUAL QAM RF: 0 omeprazole 20 mg capsule,delayed release(DR/EC) 20 mg PO QAM RF: 0 sulfamethoxazole-trimethoprim 800-160 mg tablet 1 tab PO 3XWK RF: 0 sevelamer carbonate 800 mg tablet 800 mg PO TIDM RF: 0 Eliquis 2.5 mg Tablet 2.5 mg PO BID 30 Days Qty: 60 RF: 0 prednisone 5 mg tablet 5 mg PO QAM RF: 0 magnesium oxide 400 mg (241.3 mg magnesium) Tablet 400 mg PO DAILY RF: 0 calcium carbonate-vitamin D3 [Calcium 600 + D(3)] 600 mg(1,500mg) -400 unit tablet 1 tab PO QAM RF: 0 Referrals Referrals: Andre Siegel MD [Primary Care Provider] -
[2021-09-19 08:31] LABS: Hematocrit (blood only) 18.2 % (37-47); Hemoglobin 5.6 g/dL (12.0-16.0); Mean Corpuscular Hemoglobin 34.6 pg (25-34); Mean Corpuscular Hgb Conc 30.8 g/dL (32-36); Mean Corpuscular Volume 112.3 fL (80-100); Mean Platelet Volume 11.1 fL (7.4-10.4); Nucleated RBC # (auto) 0.04 K/uL (0-0); Nucleated RBC % (auto) 0.4 %; Platelet Count 124 K/uL (130-400); RDW Coefficient of Variation 22.8 % (11.5-14.5); RDW Standard Deviation 91.7 fL (36.4-46.3); Red Blood Count 1.62 M/uL (4.2-5.4); White Blood Count 10.28 K/uL (4.8-10.8)
--- NOTE | 2021-09-19 08:32 | XRay Report ---
XR chest 1V portable HISTORY: 41 years-old Female weakness acute weakness COMPARISON: Chest radiograph 08/25/2021 TECHNIQUE: Portable AP view of the chest FINDINGS: Cardiac mediastinal and hilar silhouettes are within normal limits. The lumen hemodialysis catheter i s noted with distal tip in the expected location of the right atrium. No pneumothorax, large pleural effusion, overt pulmonary edema or focal airspace consolidation. The cardiomediastinal and hilar silh ouettes are within normal limits. No acute fracture. IMPRESSION: No acute process. ACT 112: Negative or not required by law. The above report was generated using voice recognition software. It may contain grammatical, syntax o r spelling errors. Electronically signed by: Abe Quan M.D. 09/19/2021 8:31 AM
[2021-09-19 08:36] LABS: Alanine Aminotransferase 20 U/L (12-78); Albumin Level 1.8 gm/dl (3.4-5.0); Aspartate Aminotransferase 49 U/L (15-37); BUN Creatinine Ratio 8.9 (10-20); Blood Urea Nitrogen 25 mg/dl (7-18); Carbon Dioxide 22 mmol/L (21-32); Chloride 108 mmol/L (98-107); Creatinine Clr Calc Pharmacy 23.7 ml/min; Est GFR (African American) 23.3 ml/min; Est GFR (Non-African American) 20.1 ml/min; Glucose 85 mg/dl (70-99); Magnesium 1.6 mg/dl (1.8-2.4); Potassium 4.2 mmol/L (3.5-5.1); Sodium 138 mmol/L (136-145)
[2021-09-19 08:37] LABS: Basophils # (auto) 0.03 K/uL (0-0.2); Basophils % (auto) 0.3 %; Eosinophils # (auto) 0.04 K/uL (0-0.5); Eosinophils % (auto) 0.4 %; Immature Granulocytes # (auto) 0.11 K/uL (0.00-0.02); Immature Granulocytes % (auto) 1.1 %; Lymphocytes % (auto) 10.7 %; Macrocytosis Present; Monocytes # (auto) 1.01 K/uL (0.11-0.59); Monocytes % (auto) 9.8 %; Neutrophils # (auto) 7.99 K/uL (1.4-6.5); Neutrophils % (auto) 77.7 %; Polychromasia 1+; Target Cells 1+
[2021-09-19 08:47] LABS: Albumin Globulin Ratio 0.5 (0.9-2); Alkaline Phosphatase 148 U/L (45-117); Bilirubin,Total 1.2 mg/dl (0.2-1); Globulin 3.7 gm/dl (2.5-4.0); Total Protein 5.5 gm/dl (6.4-8.2); Troponin I < 0.015 ng/ml (0-0.045)
--- NOTE | 2021-09-19 09:11 | CT Scan Report ---
ABDOMEN AND PELVIS CT WITHOUT CONTRAST CT DOSE: 650.78 mGy.cm HISTORY: Fluid overload with ascites and right-sided abdominal wound poss ascities, right sided abd wound, dialysis pt TECHNIQUE: Multiaxial CT images of the abdomen and pelvis were performed without contrast. A dose lo wering technique was utilized adhering to the principles of ALARA. COMPARISON STUDY: CT abdomen and pelvis 08/29/2021 FINDINGS: Partially imaged catheter within the right atrium. Cardiomegaly with decreased attenuation of the car diac blood pool suggestive of anemia. Mild patchy bibasilar groundglass nodular opacities. Calcified granulomata of the right middle lobe. Trace left pleural effusion. There is no pneumatosis or pneumoperitoneum. Hepatosplenomegaly with hepatic steatosis redemonstrated . The liver measures up to 26.7 cm in length. The spleen measures 14.5 cm. Mild marginal nodularity o f the liver suggested. Unremarkable pancreas and adrenal glands. Hyperdense layering material within the dependent gallbladder. The gallbladder is distended and demonstrates mild wall thickening. Unrema rkable kidneys. Decompressed urinary bladder. Uterus and adnexa appear unremarkable. Mild atheroscler osis of the aorta without aneurysm. No adenopathy. Moderate abdominal pelvic ascites has progressed from comparison. There is generalized body wall cami a. Small fat and fluid filled periumbilical hernia. No bowel obstruction or bowel wall thickening. Th e appendix is normal. Subcutaneous emphysema of the right lateral abdominal wall is noted with associ ated skin thickening, subcutaneous edema and small hematomas measuring up to 2.1 cm. No acute fractur e or suspicious bone lesion. Moderate superior endplate Schmorl's nodes at L3 and L5 are unchanged fr om comparison. No retropulsion or paravertebral edema. IMPRESSION: 1. Moderate abdominal pelvic ascites has increased from comparison. Trace left pleural effusion with mild body wall edema. 2. Skin thickening with subcutaneous edema and emphysema of the right lateral flank with small subcut aneous hematomas measuring up to 2.1 cm. This may be related to a medicinal injection site. Correlate with clinical exam findings. 3. Hepatosplenomegaly with hepatic steatosis and suggested cirrhosis. 4. Distended gallbladder with sludge versus cholelithiasis. 5. No bowel obstruction or bowel wall thickening. 6. Additional findings as above. ACT 112: Negative or not required by law. The above report was generated using voice recognition software. It may contain grammatical, syntax o r spelling errors. Electronically signed by: Abe Quan M.D. 09/19/2021 9:10 AM
[2021-09-19 09:17] LABS: T4 Free Thyroxine 0.99 ng/dl (0.8-1.6)
[2021-09-19] MEDS ORDERED: PROTHROMBIN COMP CONC- KCENTRA 3,500 UNITS in SYRINGE 0 ML IV ONE (09:30)
[2021-09-19 09:35] LABS: Partial Thromboplastin Ratio 3.5
[2021-09-19 09:36] LABS: INR > 10.7 (0.9-1.1); Prothrombin Time > 90.0 Seconds (9.0-12.0)
[2021-09-19] MEDS ORDERED: PANTOPRAZOLE BOLUS/DRIP 1 EA IV STA (11:16)
[2021-09-19] MEDS ORDERED: PANTOprazole 80 MG in DEXTROSE 5% 100 ML IV ONE (11:16)
--- NOTE | 2021-09-19 12:23 | Electrocardiogram Report ---
Test Reason : Blood Pressure : / mmHG Vent. Rate : 105 BPM Atrial Rate : 105 BPM P-R Int : 134 ms QRS Dur : 068 ms QT Int : 336 ms P-R-T Axes : 072 089 098 degrees QTc Int : 444 ms Poor data quality, interpretation may be adversely affected Sinus tachycardia Nonspecific T wave abnormality Lateral leads Abnormal ECG When compared with ECG of 25-AUG-2021 20:29, Nonspecific T wave abnormality now present Lateral leads Confirmed by Shree Lopez ([id number]) on 09/19/2021 12:23:21 PM Referred By: Lillie Tolliver Confirmed By:Shree Lopez
[2021-09-19] MEDS: PANTOprazole 40 MG in DEXTROSE 5% 100 ML IV SCH ×3 (12:28→23:41)
[2021-09-19] MEDS ORDERED: ACETAMINOPHEN 325 MG TAB PO PRN (15:18)
--- NOTE | 2021-09-19 15:20 | History & Physical Report ---
Date of Service September 19, 2021 Assessment & Plan (1) Acute blood loss anemia: (2) Cold agglutinin disease: (3) Coagulopathy: (4) Melena: Plan: -Admit to telemetry -Patient presenting by referral of outpatient PCP for evaluation of anemia and elevated INR -During recent admission, patient had been taking SQ Lovenox for management of left TDC thrombus -patient was transitioned to Eliquis. Unfortunately, patient also had Coumadin at home and reports that she has been taking both Coumadin and Eliquis. Last week, patient developed hematemesis and coffee-ground emesis and has been having dark stools. -In the ED, Hgb 5.6, INR > 10.0. Patient received IV vitamin K and PCC. -Patient is hemodynamically stable -Type and crossed for 1 unit PRBC -Trend H&H, transfuse additional PRBC as needed -Had EGD during recent admission that showed esophageal candidiasis-patient completed course of Diflucan -Start Protonix bolus and drip -Clear liquids, n.p.o. after midnight -GI consult, case discussed with SHAAN Campbell (5) Cirrhosis: (6) Ascites: Plan: -S/p 5.3 L paracentesis on 08/28 -CT ABD/pelvis shows worsening ascites -Abdominal exam benign, patient afebrile, no leukocytosis. Low suspicion for SBP at this time -Once coagulopathy reversed, consider paracentesis (7) RPGN (rapidly progressive glomerulonephritis): (8) ESRD on dialysis: Plan: -on prednisone 5 mg daily, Cytoxan has been on hold -Nephrology consult for dialysis orders -Continue routine renal medications (9) Bacteremia due to Gram-positive bacteria: Plan: -Recently had blood cultures positive for staph epidermis -Completed course of IV Vanco and Vanco lock therapy on 09/08 -Repeat blood cultures -Due to recent reports of low back pain in the setting of bacteremia, will order lumbar spine MRI to rule out osteomyelitis/discitis/epidural abscess (10) Open abdominal wall wound: Plan: -Open wound noted to right abdominal lateral wall -Outpatient wound culture from 09/05+ for cryptococcus and Acinetobacter -Completed course of fluconazole outpatient, on chronic suppressive therapy with Bactrim -No signs of abscess on CT. Patient does not appear septic -Also has 2 small indurated areas under mid abdominal fold. No drainage or fluctuance noted. Monitor closely -ID consult (11) Chronic respiratory failure with hypoxia: Plan: -Saturating well on chronic 3 L of oxygen (12) Heart failure with preserved ejection fraction: Plan: -Appears euvolemic, volume managed with dialysis (13) Chronic deep vein thrombosis (DVT) of internal jugular vein: Plan: -Likely resume Eliquis once coagulopathy has been reversed and anemia stabilized (14) DVT prophylaxis: Plan: -SCDs for now History of Present Illness Chief Complaint: Referred by PCP for abnormal labs Primary Care Provider: Andre Siegel MD 41-year-old female with PMH chronic hypoxic respiratory failure on 3 L of oxygen, chronic right-sided CHF, rapidly progressive glomerulonephritis, ESRD on dialysis, cold agglutinin disease, cirrhosis with ascites, hepatitis C, left IJ TDC thrombus anticoagulated on Eliquis, and other problems listed below who presents to the ED by referral of PCP for evaluation of abnormal labs. Patient recently admitted to [facility] [place] 08/25 through 09/01 for management of staph epidermidis bacteremia, ascites, esophageal candidiasis, left IJ TDC thrombus. For management of staph epidermidis bacteremia, patient completed Vanco lock therapy on 09/08. Patient also had 5.2 L paracentesis during previous admission. She was treated with p.o. Diflucan for 10 days to treat esophageal candidiasis. Prior to previous admission, patient was receiving SQ Lovenox for management of left IJ TDC thrombus, patient was transitioned to Eliquis 2.5 mg twice daily. Patient was seen for hospital follow-up on 09/05 by PCP. Patient reported a wound on her right lateral abdominal wall. Patient was started on cephalexin and wound culture was obtained. Patient's wound culture grew Acinetobacter and cryptococcus. Patient was restarted on fluconazole. Patient also had reported low back pain and MRI was ordered however due to transportation issues, patient never completed the study. Patient was seen again in the office on 09/18 and was reporting vomiting and dark stools. Labs were obtained and showed Hgb 6.8 and INR > 8.7. After further investigation, patient had reported that she has likely been taking Coumadin in addition to Eliquis. Patient reports that when she was vomiting last week, it was very dark and had a coffee-ground appearance. She was initially having black diarrhea however now stools are formed and remain dark. Patient denies abdominal pain. 2 nights ago, patient reports she developed sores in her mouth that have been bleeding. Chronic shortness of breath is at baseline, no chest pain. Denies lightheadedness, dizziness, diaphoresis, syncopal events. No fevers or chills. Completed full dialysis treatment yesterday. In the ED, labs show Hgb 5.6, INR > 10.7. CT ABD/pelvis shows signs of worsening ascites. Patient is hemodynamically stable. She was given IV vitamin K and PCC. Allergies Allergy/AdvReac Type Severity Reaction Status Date / Time green pepper Allergy Severe Anaphylaxis Verified 09/19/21 08:55 mushroom Allergy Severe ANAPHYLAXIS Verified 09/19/21 08:55 onion Allergy Severe ANAPHYLAXIS Verified 09/19/21 08:55 tramadol Allergy Mild RASH AND Verified 09/19/21 08:55 ITCHING ketorolac Allergy Unknown RASH Verified 09/19/21 08:55 Home Medications Medication Instructions Recorded Confirmed Type folic acid 1 mg tablet 1 mg PO BID 07/30/20 09/19/21 History calcium carbonate 600 mg (1,500 1 tab PO QAM 04/18/21 09/19/21 History mg)-vitamin D3 400 unit tablet (Calcium 600 + D(3)) buprenorphine HCl 8 mg sublingual 8 mg SUBLINGUAL QAM 08/25/21 09/19/21 History tablet omeprazole 20 mg capsule,delayed 20 mg PO QAM 08/25/21 09/19/21 History release sevelamer carbonate 800 mg tablet 800 mg PO TIDM 08/25/21 09/19/21 History sulfamethoxazole 800 1 tab PO 3XWK 08/25/21 09/19/21 History mg-trimethoprim 160 mg tablet apixaban 2.5 mg tablet (Eliquis) 2.5 mg PO BID 30 Days #60 tab 09/01/21 09/19/21 Rx magnesium oxide 400 mg (241.3 mg 400 mg PO DAILY 09/19/21 09/19/21 History magnesium) tablet prednisone 5 mg tablet 5 mg PO QAM 09/19/21 09/19/21 History Past Med/Surg History Medical History Anemia Ascites Bacteremia due to Gram-positive bacteria Chronic deep vein thrombosis (DVT) of internal jugular vein Chronic respiratory failure with hypoxia Cirrhosis Cold agglutinin disease ESRD on dialysis Folate deficiency Heart failure with preserved ejection fraction Iron deficiency anemia Pleural effusion on left Pleural effusion on right Proteinuria RPGN (rapidly progressive glomerulonephritis) Smoker Surgical History History of bronchoscopy Hx of cardiac cath 08/15/2020: Right and left heart [place] [facility] [place] [facility] [place] Family History Mother Lupus (systemic lupus erythematosus) Social History Smoking Status: Never smoker Tobacco Type: Cigarettes Cigarettes Per Day: 3; Hx Alcohol Use: No Hx Substance Use: Yes Last Used Substance: Unknown Last Used Substance Other:: 04/03/2021 medical marijuana Substance Use Type Other:: former pain killers. Is on Saboxen and medical marijuana Preferred Language: Swiss Communication Ability: Effective Inspection Engineer Required: No Beliefs That Will Affect Care: None marital status: engaged Current Living Situation: Spouse Current Living Situation Comment: fiancee and 2 kids How many Children do You have: 2 Feels Safe at Home: Yes Assistive Devices: Oxygen - Continuous Review of Systems Review of Systems: ROS per HPI, all other systems reviewed and negative Physical Exam Constitutional: WD/WN, vitals as above + ill appearing (Chronically) Appears older than stated age Eyes: PERRL, conjunctivae normal, anicteric sclerae ENMT: Ears: no external ear abnormality Nose: no external nose abnormality Mouth: + oropharynx abnormality (A few sores over the lateral aspect of the tongue with some mild oozing) and + poor dentition Respiratory: normal respiratory effort; no respiratory distress Auscultation: + diminished lung sounds Cardiovascular: Rate/Rhythm: regular rate and regular rhythm Vessels: normal peripheral pulses Extremities: no edema Chest (Breasts): Chest: + vascular access device or port (Left TDC) Gastrointestinal (Abdomen): Inspection/Auscultation: + abdomen distended and normal bowel sounds Percussion/Palpation: abdomen soft and + ascites; abdomen nontender and no hepatosplenomegaly Musculoskeletal: no cyanosis or clubbing, extremities motor strength 5/5 Skin: no rashes, warm and dry Open wound noted right lateral abdomen with some purulence and white/yellow wound bed, 2 small indurated areas also noted under mid abdominal fold Neurologic: PERRL, EOMI, accommodation nl, no face palsy, no dysarthria Psychiatric: A+Ox3, euthymic affect Results & Data Results & Data ([facility]) Vital Signs (Past 12 Hours) Vital Signs Temp Pulse Pulse Resp BP BP Pulse Ox 09/19/21 14:30 92 H 20 98/61 L 100 09/19/21 13:00 88 20 112/62 100 09/19/21 11:06 37.4 C 97 H 20 109/72 100 09/19/21 11:04 36.7 C 91 H 16 99/69 L 100 09/19/21 10:50 36.7 C 95 H 20 99/67 L 100 09/19/21 10:00 72 20 96/60 L 96 09/19/21 08:43 105 H 18 119/96 98 09/19/21 07:10 36.5 C 105 H 18 119/96 98 Laboratory Results Short CBC 09/19/21 Range/Units 08:01 WBC 10.28 (4.8-10.8) K/uL Hgb 5.6 L* (12.0-16.0) g/dL Hct 18.2 L* (37-47) % Plt Count 124 L (130-400) K/uL BMP 09/19/21 08:01 Sodium 138 Potassium 4.2 Chloride 108 H Carbon Dioxide 22 BUN 25 H Creatinine 2.84 H Glucose 85 Calcium 8.0 L Cardiac Enzymes 09/19/21 Range/Units 08:01 Troponin I < 0.015 (0-0.045) ng/ml Liver Function 09/19/21 Range/Units 08:01 Total Bilirubin 1.2 H (0.2-1) mg/dl AST 49 H (15-37) U/L ALT 20 (12-78) U/L Alkaline Phosphatase 148 H (45-117) U/L Albumin 1.8 L (3.4-5.0) gm/dl Diagnostic Findings Abdomen/Pelvis CT 09/19/21 07:[address] WITHOUT CONTRAST CT DOSE: 650.78 mGy.cm HISTORY: Fluid overload with ascites and right-sided abdominal wound poss ascities, right sided abd wound, dialysis pt TECHNIQUE: Multiaxial CT images of the abdomen and pelvis were performed without contrast. A dose lowering technique was utilized adhering to the principles of ALARA. COMPARISON STUDY: CT abdomen and pelvis 08/29/2021 FINDINGS: Partially imaged catheter within the right atrium. Cardiomegaly with decreased attenuation of the cardiac blood pool suggestive of anemia. Mild patchy bibasilar groundglass nodular opacities. Calcified granulomata of the right middle lobe. Trace left pleural effusion. There is no pneumatosis or pneumoperitoneum. Hepatosplenomegaly with hepatic steatosis redemonstrated. The liver measures up to 26.7 cm in length. The spleen measures 14.5 cm. Mild marginal nodularity of the liver suggested. Unremarkable pancreas and adrenal glands. Hyperdense layering material within the dependent gallbladder. The gallbladder is distended and demonstrates mild wall thickening. Unremarkable kidneys. Decompressed urinary bladder. Uterus and adnexa appear unremarkable. Mild atherosclerosis of the aorta without aneurysm. No adenopathy. Moderate abdominal pelvic ascites has progressed from comparison. There is generalized body wall edema. Small fat and fluid filled periumbilical hernia. No bowel obstruction or bowel wall thickening. The appendix is normal. Subcutaneous emphysema of the right lateral abdominal wall is noted with associated skin thickening, subcutaneous edema and small hematomas measuring up to 2.1 cm. No acute fracture or suspicious bone lesion. Moderate superior endplate Schmorl's nodes at L3 and L5 are unchanged from comparison. No retropulsion or paravertebral edema. IMPRESSION: 1. Moderate abdominal pelvic ascites has increased from comparison. Trace left pleural effusion with mild body wall edema. 2. Skin thickening with subcutaneous edema and emphysema of the right lateral flank with small subcutaneous hematomas measuring up to 2.1 cm. This may be related to a medicinal injection site. Correlate with clinical exam findings. 3. Hepatosplenomegaly with hepatic steatosis and suggested cirrhosis. 4. Distended gallbladder with sludge versus cholelithiasis. 5. No bowel obstruction or bowel wall thickening. 6. Additional findings as above. ACT 112: Negative or not required by law. The above report was generated using voice recognition software. It may contain grammatical, syntax or spelling errors. Electronically signed by: Abe Quan M.D. 09/19/2021 9:10 AM Chest X-Ray 09/19/21 07:50 XR chest 1V portable HISTORY: 41 years-old Female weakness acute weakness COMPARISON: Chest radiograph 08/25/2021 TECHNIQUE: Portable AP view of the chest FINDINGS: Cardiac mediastinal and hilar silhouettes are within normal limits. The lumen hemodialysis catheter is noted with distal tip in the expected location of the right atrium. No pneumothorax, large pleural effusion, overt pulmonary edema or focal airspace consolidation. The cardiomediastinal and hilar silhouettes are within normal limits. No acute fracture. IMPRESSION: No acute process. ACT 112: Negative or not required by law. The above report was generated using voice recognition software. It may contain grammatical, syntax or spelling errors. Electronically signed by: Abe Quan M.D. 09/19/2021 8:31 AM Code Status & VTE Plan Code Status Patient is a full code as per my discussion with her. VTE Prophylaxis Plan VTE Prophylaxis will be ordered: Yes Supervising Physician Co-Signing Physician Notes Attending Addendum: care coordinated with SHAAN michelle please refer to her notes for full details, I agree with her notes patient seen and examined, records reviewed by myself as well on exam, patient seen sitting in bed, comfortable, not in distress, watching TV States she feels improved compared to admission No shortness of breath, chest pain, dizziness No abdominal pain, nausea vomiting Bleeding from the mouth has resolved No melena or hematochezia so far since admission No fevers or chills no other symptoms VS noted and reviewed oriented x3, not in distress, speaks in sentences with no effort nor accessory muscle use ENT: Dried blood on the lips, no active bleeding in the oral mucosa or lips normal rate, regular rhythm, no murmurs clear breath sounds bilaterally Moderately distended, soft, nontender Positive small wound on the right lower quadrant: No active bleeding or discharge noted no bipedal edema, erythema, warmth no neuro deficits WBC 10.2 Hg 6.4 Crea 2.84 ASSESSMENT AND PLAN> Anemia, possible GI bleed Supratherapeutic INR In the setting of Eliquis use INR reversed with vitamin K, PCC also given Repeat hemoglobin 6.4, additional 1 unit of packed RBC ordered GI consulted, clear liquids, n.p.o. after midnight, possible EGD Right lower quadrant abdominal wound infection Wound culture: Cryptococcus, Acinetobacter per outpatient records Cefepime IV ID consult Ascites, liver cirrhosis GI consulted may need paracentesis other diagnoses and plan of care as per SHAAN michelle's notes Janak Curiel MD
--- NOTE | 2021-09-19 15:52 | Gastrointestinal Consultation ---
Date of Consultation September 19, 2021 Assessment & Plan (1) Coagulopathy: Appreciate primary hospitalist's reversal of warfarin/Eliquis and fluids/blood resuscitation. (2) Melena: PO Liquids po only today. Please carefully document I&Os. (3) Ascites: After coagulopathy is reversed will consider paracentesis. (4) Acute blood loss anemia: as above Supervising Physician Co-Signing Physician Notes Attg add: I interviewed and examined pt with complicated med hx admit with several day h/o dark stool on eliquis + coumadin, INR > 10 on admit, hgb 6 from baseline 8-9. Agree with reversal anticoagulation, recommend transfusion for hgb 7. She is HD stable, and s/p recent EGD which showed gastritis (?possible PHG). No need IV PPI gtt, can use oral BID PPI; no need repeat EGD. Recommend paracentesis once coag resolved. Of note, she has hematoma on abd exam -- consider empiric abx for possible cellulitis. History of Present Illness Reason for Consultation: Melena, Anemia Requesting Physician: Dr. Curiel/Tena Bronw NP Attending Physician: Janak Curiel MD History of Present Illness Ms. Elaine Guzman is a 41 yr old female pt of Dr. Siegel/Nicolette Deleon PA-C with an extensive PMH including chronic hypoxic respiratory failure on 3 L of o xygen, chronic right-sided CHF, ESRD on dialysis, cold agglutinin disease, HCV cirrhosis with ascites, left IJ TDC thrombus anticoagulated on Eliquis, and other problems listed below who was contacted by her PCP early this morning and told to present to the ED because labs drawn yesterday show anemia. On arrival at [facility] ED, Hb 5.6, INR >10. She had been changed from warfarin to Eliquis last week but had misunderstood and had taken both this past week. She reports having black loose stools last week, continuing to be black, though becoming formed yesterday and changing to a brown color today. She has also had multiple bleeding mouth sores and a bleeding lip. She has ascites, telling us it is somewhat larger than a week ago and also has an open sore on the right lower abdomen (currently dressed with saline gauze with a small amt of serous drainage) for which she is on po bactrim. Since arrival, she was given Vit K, PCC and a PPI drip was started. She is awake, alert, oriented and hemod ynamically stable. Allergies Allergy/AdvReac Type Severity Reaction Status Date / Time green pepper Allergy Severe Anaphylaxis Verified 09/19/21 08:55 mushroom Allergy Severe ANAPHYLAXIS Verified 09/19/21 08:55 onion Allergy Severe ANAPHYLAXIS Verified 09/19/21 08:55 tramadol Allergy Mild RASH AND Verified 09/19/21 08:55 ITCHING ketorolac Allergy Unknown RASH Verified 09/19/21 08:55 Home Medications Medication Instructions Recorded Confirmed Type folic acid 1 mg tablet 1 mg PO BID 07/30/20 09/19/21 History calcium carbonate 600 mg (1,500 1 tab PO QAM 04/18/21 09/19/21 History mg)-vitamin D3 400 unit tablet (Calcium 600 + D(3)) buprenorphine HCl 8 mg sublingual 8 mg SUBLINGUAL QAM 08/25/21 09/19/21 History tablet omeprazole 20 mg capsule,delayed 20 mg PO QAM 08/25/21 09/19/21 History release sevelamer carbonate 800 mg tablet 800 mg PO TIDM 08/25/21 09/19/21 History sulfamethoxazole 800 1 tab PO 3XWK 08/25/21 09/19/21 History mg-trimethoprim 160 mg tablet apixaban 2.5 mg tablet (Eliquis) 2.5 mg PO BID 30 Days #60 tab 09/01/21 09/19/21 Rx magnesium oxide 400 mg (241.3 mg 400 mg PO DAILY 09/19/21 09/19/21 History magnesium) tablet prednisone 5 mg tablet 5 mg PO QAM 09/19/21 09/19/21 History Patient History Medical History Anemia Ascites Bacteremia due to Gram-positive bacteria Chronic respiratory failure with hypoxia Cirrhosis Cold agglutinin disease ESRD on dialysis Folate deficiency Heart failure with preserved ejection fraction Iron deficiency anemia Pleural effusion on left Pleural effusion on right Proteinuria RPGN (rapidly progressive glomerulonephritis) Smoker Surgical History History of bronchoscopy Hx of cardiac cath 08/15/2020: Right and left heart cath at [facility] [place] Family History Mother Lupus (systemic lupus erythematosus) Social History Smoking Status: Never smoker Tobacco Type: Cigarettes Cigarettes Per Day: 3; Hx Alcohol Use: No Hx Substance Use: Yes Last Used Substance: Unknown Last Used Substance Other:: 04/03/2021 medical marijuana Substance Use Type Other:: former pain killers. Is on Saboxen and medical marijuana Preferred Language: Lao Communication Ability: Effective Commissioned Sales Associate Required: No Beliefs That Will Affect Care: None marital status: engaged Current Living Situation: Spouse Current Living Situation Comment: fiancee and 2 kids How many Children do You have: 2 Feels Safe at Home: Yes Assistive Devices: Oxygen - Continuous Review of Systems Review of Systems: ROS: Gen: + weakness; No fevers, No weight loss Eyes: No eye redness, or pain, no recent vision changes Resp: No SOB, no cough Cardio: No palpitations/irregular beats, no chest pain GI: As per HPI, otherwise (-) : Denies pain on urination Skin: + right lower abd skin lesion; no jaundice, itching or new rashes Ext: no edema Hem: +oozing mouth/lip lesions. A total of 12 systems were reviewed all others(-) Physical Exam Constitutional: well developed, + ill appearing and cooperative Eyes: PERRL, conjunctivae normal, anicteric sclerae ENMT: external ear and nose normal, oropharynx normal Neck: trachea midline, no thyromegaly Respiratory: normal respiratory effort, lungs clear to auscultation Cardiovascular: RRR, no murmur, no edema Gastrointestinal (Abdomen): Inspection/Auscultation: + abdomen distended (with moderate to large ascites, not tense) and normal bowel sounds; no abdominal edema Percussion/Palpation: abdomen soft and + fluid wave; abdomen nontender Skin: normal turgor 2cm right lower abd/flank open area - draining a small amt of serous fluid - does not appear to be ascitic Neurologic: PERRL, EOMI, accommodation nl, no face palsy, no dysarthria awake; not confused Psychiatric: A+Ox3, euthymic affect Orientation: alert, oriented x 3 and cooperative Results & Data ([facility]) Vital Signs (Past 12 Hours) Vital Signs Temp Pulse Pulse Resp BP BP Pulse Ox 09/19/21 15:21 37.5 C 93 H 18 100/66 100 09/19/21 14:30 92 H 20 98/61 L 100 09/19/21 13:00 88 20 112/62 100 09/19/21 11:06 37.4 C 97 H 20 109/72 100 09/19/21 11:04 36.7 C 91 H 16 99/69 L 100 09/19/21 10:50 36.7 C 95 H 20 99/67 L 100 09/19/21 10:00 72 20 96/60 L 96 09/19/21 08:43 105 H 18 119/96 98 09/19/21 07:10 36.5 C 105 H 18 119/96 98 Laboratory Results WBC 10, Hb 5.6, Hct 18.2, Plts 124, Na 138, K 4.2, Cl 108, CO2 22, BUN 25, Cr 2.84, glucose 85, T Bili 1.2, AST 49, ALT 20, Alk Phos 148, TSH 4.98, COVID (-) Diagnostic Findings CTAP non contrast: 1. Moderate abdominal pelvic ascites has increased from comparison. Trace left pleural effusion with mild body wall edema. 2. Skin thickening with subcutaneous edema and emphysema of the right lateral flank with small subcutaneous hematomas measuring up to 2.1 cm. This may be related to a medicinal injection site. Correlate with clinical exam findings. 3. Hepatosplenomegaly with hepatic steatosis and suggested cirrhosis. 4. Distended gallbladder with sludge versus cholelithiasis. 5. No bowel obstruction or bowel wall thickening. 6. Additional findings as above. CXR: No acute process.
[2021-09-19 16:27] LABS: INR 1.8 (0.9-1.1); Prothrombin Time 17.1 Seconds (9.0-12.0)
[2021-09-19 16:51] LABS: Hematocrit (blood only) 20.5 % (37-47); Hemoglobin 6.4 g/dL (12.0-16.0)
[2021-09-19] MEDS: SEVELAMER HCL 800 MG TABLET PO SCH (17:26)
[2021-09-19] MEDS: MAGNESIUM SULFATE / D5W 1 GM/100 ML BAG IV SCH ×2 (20:54→23:05)
[2021-09-19] MEDS: FOLIC ACID 1 MG TAB PO SCH (20:54)
[2021-09-20] MEDS: PANTOprazole 40 MG in DEXTROSE 5% 100 ML IV SCH ×3 (04:06→13:48)
[2021-09-20 07:09] LABS: INR 1.5 (0.9-1.1); Prothrombin Time 14.8 Seconds (9.0-12.0)
[2021-09-20 07:24] LABS: Hematocrit (blood only) 19.7 % (37-47); Hemoglobin 6.7 g/dL (12.0-16.0); Mean Corpuscular Hemoglobin 34.5 pg (25-34); Mean Corpuscular Volume 101.5 fL (80-100); Platelet Count 97 K/uL (130-400); Platelet Estimate Decreased (Normal); RDW Coefficient of Variation 23.7 % (11.5-14.5); Red Blood Count 1.94 M/uL (4.2-5.4); White Blood Count 8.58 K/uL (4.8-10.8)
[2021-09-20 07:32] LABS: BUN Creatinine Ratio 9.2 (10-20); Calcium 7.5 mg/dl (8.5-10.1); Creatinine Clr Calc Pharmacy 19.1 ml/min; Est GFR (African American) 17.6 ml/min; Est GFR (Non-African American) 15.2 ml/min; Potassium 4.2 mmol/L (3.5-5.1)
[2021-09-20] MEDS: MAGNESIUM OXIDE 400 MG TAB PO SCH (08:50)
[2021-09-20] MEDS: predniSONE 5 MG TAB PO SCH (08:50)
[2021-09-20] MEDS: SEVELAMER HCL 800 MG TABLET PO SCH ×3 (08:50→17:46)
[2021-09-20] MEDS: FOLIC ACID 1 MG TAB PO SCH ×2 (08:51→20:29)
[2021-09-20] MEDS: LORazepam 0.5 MG/1 ML VIAL IV PRN (08:55)
[2021-09-20] MEDS: buprenorphine HCL 8 MG SUBL SL SCH (08:55)
[2021-09-20] MEDS ORDERED: SULFAMETHOXAZOLE/TRIMETHOPRIM DS 800/160MG TAB PO SCH (09:00)
--- NOTE | 2021-09-20 10:53 | Magnetic Resonance Report ---
MR lumbar spine wo con CLINICAL HISTORY: 41 years-old Female with back pain, recent bacteremia. Acute back pain with recent bacteremia. COMPARISON: CT abdomen and pelvis 09/19/2021, 08/29/2021, 07/30/2020. TECHNIQUE: Multiplanar, multi sequence MRI of the lumbar spine was performed without intravenous cont rast. FINDINGS: The study is markedly motion degraded. Hepatosplenomegaly with ascites, better characterized on the c omparison CT study. The conus medullaris terminates at T12-L1. Signal within the imaged thoracic spin al cord is unremarkable. Schmorl's nodes with superior endplate compression of the L3 and L5 vertebra l bodies are redemonstrated, unchanged dating back to 08/29/2021 however are new from the 07/30/2020 s tudy. No retropulsion. Trace prevertebral edema. Mild multilevel spondylitic spurring and facet arthr osis. There is a small central disc extrusion at T11-T12 which flattens the ventral thecal sac without sign ificant central canal or neural foraminal narrowing. T12-L1: No central canal or neural foraminal stenosis. L1-L2: No central canal or neural foraminal stenosis. L2-L3: Mild intervertebral disc space narrowing with small posterior annular disc bulge, mild spondy litic spurring and facet arthrosis. No central canal or neural foraminal stenosis. L3-L4: Small posterior annular disc bulge with annular fissure within the left foraminal distributio n. The central canal and right neural foramen are patent. Mild left neural foraminal narrowing. L4-L5: Small posterior annular disc bulge. Ligamentum flavum thickening with mild facet arthrosis. C entral canal is patent. Mild bilateral neural foraminal narrowing. L5-S1: No central canal or neural foraminal stenosis. IMPRESSION: 1. Motion degraded exam. 2. Moderate L3 superior endplate compression deformity is likely subacute and is unchanged from 08/29 however is new from 07/30/2020. No retropulsion. 3. Subacute to chronic appearing Schmorl's node with mild superior endplate compression at L5, also n ew from 07/30/2020. 4. Mild discogenic degeneration as above without high-grade central canal or neural foraminal narrowi ng. 5. No evidence of discitis/osteomyelitis. 6. Hepatomegaly with abdominal and pelvic ascites redemonstrated. ACT 112: Negative or not required by law. The above report was generated using voice recognition software. It may contain grammatical, syntax o r spelling errors. Dictated: 09/20/2021 10:03 AM Transcribed: 09/20/2021 10:46 AM Nya [id number] [email or web address] Electronically signed by: Abe Quan M.D. 09/20/2021 10:51 AM
[2021-09-20] MEDS ORDERED: SODIUM CHLORIDE 0.9% 1000ML 1,000 ML IV PRN (11:37)
[2021-09-20] MEDS ORDERED: SODIUM CHLORIDE 0.9% 250 ML IV PRN (11:40)
[2021-09-20] MEDS: PANTOprazole 40 MG TAB PO SCH (12:08)
[2021-09-20] MEDS ORDERED: EPOETIN ALFA 20,000 UNITS/ML VIAL IV SCH (12:30)
--- NOTE | 2021-09-20 13:26 | Gastroenterology Progress Note ---
Date of Service September 20, 2021 Assessment & Plan (1) Coagulopathy: Plan: Appreciate primary hospitalist's reversal of warfarin/Eliquis and fluids/blood resuscitation. (2) Melena: Plan: P.o. twice daily PPI. Advance diet. Underwent recent EGD, September 01. Would defer repeat EGD. (3) Ascites: Plan: Discussed with primary hospitalist. That service will arrange therapeutic paracentesis tomorrow with albumin 25 g prior and post. GI will sign off. Please notify us if further evidence of GI bleeding, drop in hemoglobin hematocrit, need for assistance with management of cirrhosis with ascites. (4) Acute blood loss anemia: Plan: as above Admission and Anticipated Discharge Date Admission Date: September 19, 2021 Supervising Physician Co-Signing Physician Notes Attg add: I interviewed and examined pt. No BM today. INR corrected, hb 6.7. Plan for BID PPI. Plan for tap. Can resume eliquis on discharge. Please call with questions. Subjective 41 yr old female ESRD, Thrombus on Eliquis, was also accidentally taking warfarin and presented with oozing from multiple mouth lesions early yesterday. Hb 5.6 on arrival +1 unit of RBC-> Hb 6.7. INR more than 10 on arrival -> 1.5 today. Plts 97. No bowel movement since few days ago in the morning. At that time black, formed. Today denies any nausea vomiting, or abdominal pain. On po BID PPI. Moderate ascites, asking for paracentesis before discharge. Physical Exam Constitutional: well developed, + ill appearing and cooperative Eyes: PERRL, conjunctivae normal, anicteric sclerae ENMT: external ear and nose normal, oropharynx normal Neck: trachea midline, no thyromegaly Respiratory: normal respiratory effort, lungs clear to auscultation Cardiovascular: RRR, no murmur, no edema Gastrointestinal (Abdomen): Inspection/Auscultation: + abdomen distended (with moderate to large ascites, not tense) and normal bowel sounds; no abdominal edema Percussion/Palpation: abdomen soft and + fluid wave; abdomen nontender Skin: normal turgor Neurologic: PERRL, EOMI, accommodation nl, no face palsy, no dysarthria awake; not confused Psychiatric: A+Ox3, euthymic affect Orientation: alert, oriented x 3 and cooperative Results & Data ([place]) Vital Signs (Past 12 Hours) Vital Signs Temp Pulse Pulse Resp BP BP Pulse Ox 09/20/21 11:59 37.0 C 72 18 92/72 L 96 09/20/21 08:00 37.1 C 104 H 100 H 16 95/59 L 97 09/20/21 03:21 37.6 C H 99 H 20 99/60 L 100 Laboratory Results WBC 8, Hb 6.7, HCT 19, PLT S 97, NA 132, K4.2, CL 102, CO2 22, BUN 33, CR 3.57, glucose 75. Diagnostic Findings Noncontrast CTAP September 19: 1. Moderate abdominal pelvic ascites has increased from comparison. Trace left pleural effusion with mild body wall edema. 2. Skin thickening with subcutaneous edema and emphysema of the right lateral flank with small subcutaneous hematomas measuring up to 2.1 cm. This may be related to a medicinal injection site. Correlate with clinical exam findings. 3. Hepatosplenomegaly with hepatic steatosis and suggested cirrhosis. 4. Distended gallbladder with sludge versus cholelithiasis. 5. No bowel obstruction or bowel wall thickening. 6. Additional findings as above.
--- NOTE | 2021-09-20 13:30 | Consultation Report ---
NEPHROLOGY CONSULTATION NOTE DATE OF SERVICE: 09/20/2021 REASON FOR CONSULTATION: Dialysis patient admitted with GI bleed. HISTORY OF PRESENT ILLNESS: The patient is a 41-year-old female with very complicated medical histor y including end-stage renal disease, on dialysis Saturday, Saturday, Saturday at the [facility] dial ysis unit with Dr. Daly Nagel. She had a routine visit with her primary care doctor's office on Saturday and she had some blood work done, which showed severe anemia with a hemoglobin which was very low at 6.8. She was having dark-colored melenic stool for the last week or so, and because of the lo w hemoglobin, the patient was instructed to come to the Emergency Department, which she did. Hemoglo bin in the Emergency Department was even lower at 5.6 yesterday morning. Since being admitted, she h as had 2 units of blood transfusion and she is supposed to have one more later today. She is current ly on the Protonix drip. She was supratherapeutic with an INR of more than 10. At this point, there is no plan for endoscopy for today. She is not complaining of any worsening shortness of breath. He r appetite has been fair. She denies having nausea, vomiting, chest pain or worsening shortness of b reath than her usual. Denies lightheadedness, dizziness, diaphoresis, syncopal events, fever or chil ls. The patient was discharged from [facility] very recently on 09/01 after an adm ission for Staph epidermidis bacteremia, ascites, esophageal candidiasis, left IJ dialysis catheter t hrombus. She also completed the vancomycin lock therapy on 09/08 and had a 5.2 liter paracentesis do ne during the previous admission. 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 Currently on prednisone 5 mg, Bactrim and cyclophosphamide. However, the patie nt categorically says she does not take cyclophosphamide, but on the outpatient medication list, it is still listed as one of her active medication. History of rapidly progressive glomerulonephritis, chronic respiratory failure, on chronic oxygen 3 liters, chronic right-sided heart failure. She feel s slightly better today than yesterday. ALLERGIES: LIST REVIEWED. MEDICATIONS: Home medication list is reviewed in detail. She is taking prednisone 5 daily, magnesiu m oxide 400 daily, Bactrim prophylaxis 3 times a week, sevelamer, omeprazole, buprenorphine, folic ac id, calcium, multivitamin D. There is a question whether she is actually taking Cytoxan or not, but I will trust the patient as she seems quite knowledgeable with her medical history. PAST MEDICAL HISTORY: Includes as detailed in the H and P as well as ongoing smoking as well as hist ory of drug abuse. PAST SURGICAL HISTORY: Bronchoscopy, cardiac catheterization. FAMILY HISTORY: Positive for lupus in her mother. SOCIAL HISTORY: She is a current smoker. No heavy alcohol use. She did have issues with substance abuse in the past. She is currently on the Suboxone program. She is , she lives with her spo use and 2 kids. She does use oxygen 3 liters continuous. REVIEW OF SYSTEMS: As detailed in HPI; unless stated otherwise, 12 systems were reviewed and negativ e. PHYSICAL EXAMINATION: GENERAL: Young white female who does not appear to be in any overt respiratory distress; however, sh ellen does appear chronically sick. She is awake, alert, fully oriented and able to give a detailed acco unt of her medical problem list. VITAL SIGNS: Blood pressure 95/59, pulse rate 104, temperature 37.1, 97% on 2 liters nasal cannula. HEENT: Normocephalic, atraumatic. Mouth, does have some sores, poor dentition. CHEST: Bilateral decreased breath sounds, occasional crackles. CARDIOVASCULAR: S1 and S2, regular. Soft systolic murmur heard. ABDOMEN: Soft, distended, some ascites present. Nontender. EXTREMITIES: No edema. SKIN: No rashes. She does have an open wound in her right lateral abdomen. LABORATORY TEST: INR was supratherapeutic at more than 10 at the time of admission, hemoglobin was 5 .6 on admission, this morning is up to 6.7. Sodium 132, potassium 4.2, BUN 33, creatinine 3.57, albu min 1.8. Chest x-ray did not show any pulmonary effusion. CT abdomen and pelvis done yesterday show s moderate abdominopelvic ascites. ASSESSMENT AND PLAN: A 41-year-old female with end-stage renal disease, on chronic hemodialysis , Saturday, Saturday, admitted with significant gastrointestinal bleed in the setting of supratherap eutic INR. She has very extensive medical problem list, unfortunately. 1. End-stage renal disease: Today is her dialysis day. She has had 3 units of blood transfusion. We will do dialysis later today. No heparin today. I discussed with Dr. Rivas who is the primary team and he is planning to give 1 unit of blood transfusion with dialysis later today. We will try t o take about 2 kilos of fluids. Her blood pressure is marginal, but she does have evidence of signif icant ascites and has problem with fluid overload and shortness of breath. 2. Gastrointestinal bleed: Hemoglobin was as low as 5.6 and she is status post blood transfusion. Defer to gastrointestinal and primary team. Job ID: [id number]
--- NOTE | 2021-09-20 18:42 | Hospitalist Progress Note ---
Date of Service September 20, 2021 Assessment & Plan (1) Acute blood loss anemia: (2) Cold agglutinin disease: (3) Coagulopathy: (4) Melena: Plan: -Admit to telemetry -Patient presenting by referral of outpatient PCP for evaluation of anemia and elevated INR -During recent admission, patient had been taking SQ Lovenox for management of left TDC thrombus -patient was transitioned to Eliquis. Unfortunately, patient also had Coumadin at home and reports that she has been taking both Coumadin and Eliquis. Last week, patient developed hematemesis and coffee-ground emesis and has been having dark stools. -In the ED, Hgb 5.6, INR > 10.0. Patient received IV vitamin K and PCC. -Patient is hemodynamically stable -Type and crossed for 1 unit PRBC -Trend H&H, transfuse additional PRBC as needed -Had EGD during recent admission that showed esophageal candidiasis-patient completed course of Diflucan -Start Protonix bolus and drip -Clear liquids, n.p.o -GI consult, case discussed with SHAAN Campbell (5) Cirrhosis: (6) Ascites: Plan: -S/p 5.3 L paracentesis on 08/28 -CT ABD/pelvis shows worsening ascites -Abdominal exam benign, patient afebrile, no leukocytosis. Low suspicion for SBP at this time -Once coagulopathy reversed, consider paracentesis (7) RPGN (rapidly progressive glomerulonephritis): (8) ESRD on dialysis: Plan: -on prednisone 5 mg daily, Cytoxan has been on hold -Nephrology consult for dialysis orders -Continue routine renal medications (9) Bacteremia due to Gram-positive bacteria: Plan: -Recently had blood cultures positive for staph epidermis -Completed course of IV Vanco and Vanco lock therapy on 09/08 -Repeat blood cultures -Due to recent reports of low back pain in the setting of bacteremia, will order lumbar spine MRI to rule out osteomyelitis/discitis/epidural abscess (10) Open abdominal wall wound: Plan: -Open wound noted to right abdominal lateral wall -Outpatient wound culture from 09/05+ for cryptococcus and Acinetobacter -Completed course of fluconazole outpatient, on chronic suppressive therapy with Bactrim -No signs of abscess on CT. Patient does not appear septic -Also has 2 small indurated areas under mid abdominal fold. No drainage or fluctuance noted. Monitor closely -ID consult (11) Chronic respiratory failure with hypoxia: Plan: -Saturating well on chronic 3 L of oxygen (12) Heart failure with preserved ejection fraction: Plan: -Appears euvolemic, volume managed with dialysis (13) Chronic deep vein thrombosis (DVT) of internal jugular vein: Plan: -Likely resume Eliquis once coagulopathy has been reversed and anemia stabilized (14) DVT prophylaxis: Plan: -SCDs for now Admission and Anticipated Discharge Date Admission Date: September 19, 2021 Subjective Pt was seen and examined for follow up of anemia Lying in bed with no acute distress Pt said that she feels much better Hgb 6.7 today and plan to give 1 unit PRBC today during HD Denies any chest pain, palpitation, dizziness and SOB Review of Systems Review of Systems: All systems reviewed & are unremarkable except as noted in Subjective Physical Exam Physical Exam: General- No acute distress Head- atraumatic Eyes- PERRL, EOMI, ENT- oropharynx clear Neck- supple, no JVD Lungs- clear to auscultation Heart- regular rhythm; no murmur Abdomen- normal bowel sounds, soft, nontender Extremities- no calf tenderness, +ascites, distended Neuro- alert, oriented x 3; PERRL, EOMI; no facial palsy; no dysarthria Skin- warm & dry Results & Data Results & [facility] ([facility] Vital Signs (Past 12 Hours) Vital Signs Temp Pulse Pulse Pulse Resp BP BP 09/20/21 18:05 100 H 09/20/21 17:38 37.0 C 93 H 18 09/20/21 17:30 37.3 C 88 09/20/21 17:00 84 99/63 L 09/20/21 16:40 89 108/67 09/20/21 16:20 85 105/63 09/20/21 16:00 89 95/64 L 09/20/21 15:42 37.3 C 97 H 18 112/85 09/20/21 15:30 74 90/59 L 09/20/21 15:15 86 89/60 L 09/20/21 15:00 89 97/60 L 09/20/21 14:50 75 87/61 L 09/20/21 14:41 85 91/56 L 09/20/21 14:40 37 C 85 20 91/56 L 09/20/21 14:20 83 89/49 L 09/20/21 14:08 37.0 C 90 09/20/21 11:59 37.0 C 72 18 92/72 L 09/20/21 08:00 37.1 C 104 H 100 H 16 BP Pulse Ox 09/20/21 18:05 09/20/21 17:38 105/70 100 09/20/21 17:30 107/66 09/20/21 17:00 09/20/21 16:40 09/20/21 16:20 09/20/21 16:00 09/20/21 15:42 09/20/21 15:30 09/20/21 15:15 09/20/21 15:00 09/20/21 14:50 09/20/21 14:41 09/20/21 14:40 09/20/21 14:20 09/20/21 14:08 09/20/21 11:59 96 09/20/21 08:00 95/59 L 97
[2021-09-20] MEDS: LORazepam 0.5 MG TAB PO PRN (20:29)
[2021-09-21 06:13] LABS: Hematocrit (blood only) 24.8 % (37-47); Hemoglobin 8.1 g/dL (12.0-16.0); Mean Corpuscular Hemoglobin 32.8 pg (25-34); Mean Corpuscular Hgb Conc 32.7 g/dL (32-36); Mean Corpuscular Volume 100.4 fL (80-100); Mean Platelet Volume 11.4 fL (7.4-10.4); Platelet Count 102 K/uL (130-400); RDW Coefficient of Variation 22.7 % (11.5-14.5); RDW Standard Deviation 79.4 fL (36.4-46.3); Red Blood Count 2.47 M/uL (4.2-5.4); White Blood Count 8.39 K/uL (4.8-10.8)
[2021-09-21 06:53] LABS: BUN Creatinine Ratio 6.4 (10-20); Calcium 7.6 mg/dl (8.5-10.1); Creatinine Clr Calc Pharmacy 25.3 ml/min; Est GFR (African American) 24.8 ml/min; Est GFR (Non-African American) 21.4 ml/min; Potassium 3.3 mmol/L (3.5-5.1)
[2021-09-21 06:54] LABS: INR 1.7 (0.9-1.1); Prothrombin Time 16.2 Seconds (9.0-12.0)
[2021-09-21] MEDS: PANTOprazole 40 MG TAB PO SCH (08:21)
[2021-09-21] MEDS: SEVELAMER HCL 800 MG TABLET PO SCH ×2 (08:21→11:12)
[2021-09-21] MEDS: predniSONE 5 MG TAB PO SCH (08:21)
[2021-09-21] MEDS: FOLIC ACID 1 MG TAB PO SCH (08:21)
[2021-09-21] MEDS: MAGNESIUM OXIDE 400 MG TAB PO SCH (08:21)
[2021-09-21] MEDS: buprenorphine HCL 8 MG SUBL SL SCH (08:24)
[2021-09-21] MEDS: LORazepam 0.5 MG TAB PO PRN (08:24)
[2021-09-21] MEDS ORDERED: ALBUMIN 25% 100 mL 25 GM/100 ML VIAL IV ONE ×2 (09:35→12:18)
--- NOTE | 2021-09-21 10:25 | Nephrology Progress Note ---
Date of Service September 21, 2021 Assessment & Plan Admission and Anticipated Discharge Date Admission Date: September 19, 2021 Subjective S---had HD yesterday. So far 3 units of PRBC. Getting Paracentesis today. Hgb up to 8 now PHYSICAL EXAMINATION: GENERAL: Young white female who does not appear to be in any overt respiratory distress; however, she does appear chronically sick. She is awake, alert, fully oriented and able to give a detailed account of her medical problem list. HEENT: Normocephalic, atraumatic. Mouth, does have some sores, poor dentition. CHEST: Bilateral decreased breath sounds, occasional crackles. CARDIOVASCULAR: S1 and S2, regular. Soft systolic murmur heard. ABDOMEN: Soft, distended, some ascites present. Nontender. EXTREMITIES: No edema. SKIN: No rashes. She does have an open wound in her right lateral abdomen. LABORATORY TEST: INR was supratherapeutic at more than 10 at the time of admission, hemoglobin was 5.6 on admission, this morning is up to 8.1. K is 3.2 CT abdomen and pelvis done yesterday shows moderate abdominopelvic ascites. ASSESSMENT AND PLAN: A 41-year-old female with end-stage renal disease, on chronic hemodialysis Saturday, Saturday, Saturday, admitted with significant gastrointestinal bleed in the setting of supratherapeutic INR. She has very extensive medical problem list, unfortunately. 1. End-stage renal disease: next HD will be either tomorrow or Saturday. She has had 3 units of blood transfusion. Her blood pressure is marginal, but she does have evidence of significant ascites and has problem with fluid overload and shortness of breath. 2. Gastrointestinal bleed: Hemoglobin was as low as 5.6 and she is status post blood transfusion. Defer to gastrointestinal and primary team. Results & Data ([facility]) Vital Signs (Past 12 Hours) Vital Signs Temp Pulse Pulse Resp BP BP Pulse Ox 09/21/21 07:33 36.8 C 84 18 94/61 L 99 09/21/21 03:32 37.1 C 84 18 99/62 L 99 09/21/21 01:27 95 H 09/20/21 23:38 37 C 92 H 18 95/63 L 98
--- NOTE | 2021-09-21 11:57 | Ultrasound Report ---
PROCEDURE: Ultrasound-Guided Diagnostic/Therapeutic Paracentesis CLINICAL HISTORY: Ascites MEDICATIONS: Subcutaneous Lidocaine 2%. PROCEDURE: The procedure itself was explained to the patient carefully. The patient was brought into the IR suite and a time-out was performed. The patient was positioned supine on the table. Preliminar y ultrasound of the abdomen was performed to determine a safe needle entry site. The most appropriat e approach for safe needle entry site was planned and the site for puncture was marked. The right low er quadrant was prepped and draped in the usual sterile fashion. Subcutaneous 2% lidocaine was used f or local anesthesia along the expected needle tract. Under ultrasound-guidance, an 5 [place] Y[place]h needle-sheath was inserted carefully into the peritoneal space towards the abdominal ascites fluid collection. The needle was removed and the sheath was conn ected to tubing and a vacuum suction device. A total of 3400 cc of serous ascites was aspirated. The sheath was removed and a sterile dressing applied. The patient tolerated the procedure well without i mmediate complications. IMPRESSION: Ultrasound-guided therapeutic paracentesis. Electronically signed by: Kash Mcleod M.D. 09/21/2021 11:55 AM
[2021-09-21] MEDS: LORazepam 0.5 MG/1 ML VIAL IV PRN (12:07)
--- NOTE | 2021-09-21 15:36 | Discharge Summary ---
Date of Service September 21, 2021 Admission HPI Per Admitting Provider 41-year-old female with PMH chronic hypoxic respiratory failure on 3 L of oxygen, chronic right-sided CHF, rapidly progressive glomerulonephritis, ESRD on dialysis, cold agglutinin disease, cirrhosis with ascites, hepatitis C, left IJ TDC thrombus anticoagulated on Eliquis, and other problems listed below who presents to the ED by referral of PCP for evaluation of abnormal labs. Patient recently admitted to [facility] 08/25 through 09/01 for management of staph epidermidis bacteremia, ascites, esophageal candidiasis, left IJ TDC thrombus. For management of staph epidermidis bacteremia, patient completed Vanco lock therapy on 09/08. Patient also had 5.2 L paracentesis during previous admission. She was treated with p.o. Diflucan for 10 days to treat esophageal candidiasis. Prior to previous admission, patient was receiving SQ Lovenox for management of left IJ TDC thrombus, patient was transitioned to Eliquis 2.5 mg twice daily. Patient was seen for hospital follow-up on 09/05 by PCP. Patient reported a wound on her right lateral abdominal wall. Patient was started on cephalexin and wound culture was obtained. Patient's wound culture grew Acinetobacter and cryptococcus. Patient was restarted on fluconazole. Patient also had reported low back pain and MRI was ordered however due to transportation issues, patient never completed the study. Patient was seen again in the office on 09/18 and was reporting vomiting and dark stools. Labs were obtained and showed Hgb 6.8 and INR > 8.7. After further investigation, patient had reported that she has likely been taking Coumadin in addition to Eliquis. Patient reports that when she was vomiting last week, it was very dark and had a coffee-ground appearance. She was initially having black diarrhea however now stools are formed and remain dark. Patient denies abdominal pain. 2 nights ago, patient reports she developed sores in her mouth that have been bleeding. Chronic shortness of breath is at baseline, no chest pain. Denies lightheadedness, dizziness, diaphoresis, syncopal events. No fevers or chills. Completed full dialysis treatment yesterday. In the ED, labs show Hgb 5.6, INR > 10.7. CT ABD/pelvis shows signs of worsening ascites. Patient is hemodynamically stable. She was given IV vitamin K and PCC. Admission Exam Per Admitting Provider Constitutional: WD/WN, vitals as above + ill appearing (Chronically) Appears older than stated age Eyes: PERRL, conjunctivae normal, anicteric sclerae ENMT: Ears: no external ear abnormality Nose: no external nose abnormality Mouth: + oropharynx abnormality (A few sores over the lateral aspect of the to ngue with some mild oozing) and + poor dentition Respiratory: normal respiratory effort; no respiratory distress Auscultation: + diminished lung sounds Cardiovascular: Rate/Rhythm: regular rate and regular rhythm Vessels: normal peripheral pulses Extremities: no edema Chest (Breasts): Chest: + vascular access device or port (Left TDC) Gastrointestinal (Abdomen): Inspection/Auscultation: + abdomen distended and normal bowel sounds Percussion/Palpation: abdomen soft and + ascites; abdomen nontender and no hepatosplenomegaly Musculoskeletal: no cyanosis or clubbing, extremities motor strength 5/5 Skin: no rashes, warm and dry Open wound noted right lateral abdomen with some purulence and white/yellow wound bed, 2 small indurated areas also noted under mid abdominal fold Neurologic: PERRL, EOMI, accommodation nl, no face palsy, no dysarthria Psychiatric: A+Ox3, euthymic affect Principal Diagnosis (1) Acute blood loss anemia: (2) Cold agglutinin disease: (3) Coagulopathy: (4) Melena (5) Cirrhosis: (6) Ascites: (7) RPGN (rapidly progressive glomerulonephritis): (8) ESRD on dialysis: Discharge Exam General- No acute distress Head- atraumatic Eyes- PERRL, EOMI, ENT- oropharynx clear Neck- supple, no JVD Lungs- clear to auscultation Heart- regular rhythm; no murmur Abdomen- normal bowel sounds, soft, nontender Extremities- no calf tenderness, +ascites, distended Neuro- alert, oriented x 3; PERRL, EOMI; no facial palsy; no dysarthria Skin- warm & dry Discharge Data Allergies Allergy/AdvReac Type Severity Reaction Status Date / Time green pepper Allergy Severe Anaphylaxis Verified 09/19/21 08:55 mushroom Allergy Severe ANAPHYLAXIS Verified 09/19/21 08:55 onion Allergy Severe ANAPHYLAXIS Verified 09/19/21 08:55 tramadol Allergy Mild RASH AND Verified 09/19/21 08:55 ITCHING ketorolac Allergy Unknown RASH Verified 09/19/21 08:55 Consultations 09/19/21 10:07 ED Decision to Admit Stat 09/19/21 11:23 Consult Infectious Diseases Routine 09/19/21 15:18 Consult Gastroenterology Routine Consult Nephrology Routine Ordered Studies 09/19/21 07:49 CT abd pelvis wo con Stat 09/19/21 15:18 MR lumbar spine wo con Routine 09/21/21 01:42 US paracentesis abd w/image Routine PROCEDURE: Ultrasound-Guided Diagnostic/Therapeutic Paracentesis CLINICAL HISTORY: Ascites MEDICATIONS: Subcutaneous Lidocaine 2%. PROCEDURE: The procedure itself was explained to the patient carefully. The patient was brought into the IR suite and a time-out was performed. The patient was positioned supine on the table. Preliminary ultrasound of the abdomen was performed to determine a safe needle entry site. The most appropriate approach for safe needle entry site was planned and the site for puncture was marked. The right lower quadrant was prepped and draped in the usual sterile fashion. Sub cutaneous 2% lidocaine was used for local anesthesia along the expected needle tract. Under ultrasound-guidance, an 5 [place] Yueh needle-sheath was inserted carefully into the peritoneal space towards the abdominal ascites fluid collection. The needle was removed and the sheath was connected to tubing and a vacuum suction device. A total of 3400 cc of serous ascites was aspirated. The sheath was removed and a sterile dressing applied. The patient tolerated the procedure well without immediate complications. IMPRESSION: Ultrasound-guided therapeutic paracentesis. Electronically signed by: Kash Mcleod M.D. 09/21/2021 11:55 AM Dictated:09/21/21 1155 Transcribed: 09/21/21 1155 MR lumbar spine wo con CLINICAL HISTORY: 41 years-old Female with back pain, recent bacteremia. Acute back pain with recent bacteremia. COMPARISON: CT abdomen and pelvis 09/19/2021, 08/29/2021, 07/30/2020. TECHNIQUE: Multiplanar, multi sequence MRI of the lumbar spine was performed without intravenous contrast. FINDINGS: The study is markedly motion degraded. Hepatosplenomegaly with ascites, better characterized on the comparison CT study. The conus medullaris terminates at T12-L1. Signal within the imaged thoracic spinal cord is unremarkable. Schmorl's nodes with superior endplate compression of the L3 and L5 vertebral bodies are r edemonstrated, unchanged dating back to 08/29/2021 however are new from the 07/30/2020 study. No retropulsion. Trace prevertebral edema. Mild multilevel spondylitic spurring and facet arthrosis. There is a small central disc extrusion at T11-T12 which flattens the ventral thecal sac without significant central canal or neural foraminal narrowing. T12-L1: No central canal or neural foraminal stenosis. L1-L2: No central canal or neural foraminal stenosis. L2-L3: Mild intervertebral disc space narrowing with small posterior annular disc bulge, mild spondylitic spurring and facet arthrosis. No central canal or neural foraminal stenosis. L3-L4: Small posterior annular disc bulge with annular fissure within the left foraminal distribution. The central canal and right neural foramen are patent. Mild left neural foraminal narrowing. L4-L5: Small posterior annular disc bulge. Ligamentum flavum thickening with mild facet arthrosis. Central canal is patent. Mild bilateral neural foraminal narrowing. L5-S1: No central canal or neural foraminal stenosis. IMPRESSION: 1. Motion degraded exam. 2. Moderate L3 superior endplate compression deformity is likely subacute and is unchanged from 08/29/2021 however is new from 07/30/2020. No retropulsion. 3. Subacute to chronic appearing Schmorl's node with mild superior endplate compression at L5, also new from 07/30/2020. 4. Mild discogenic degeneration as above without high-grade central canal or neural foraminal narrowing. 5. No evidence of discitis/osteomyelitis. 6. Hepatomegaly with abdominal and pelvic ascites redemonstrated. ACT 112: Negative or not required by law. The above report was generated using voice recognition software. It may contain grammatical, syntax or spelling errors. Dictated: 09/20/2021 10:03 AM Transcribed: 09/20/2021 10:46 AM Nya [id number] Electronically signed by: Abe Quan M.D. 09/20/2021 10:51 AM Dictated:09/20/21 1003 Transcribed: 09/20/21 1046 XR chest 1V portable HISTORY: 41 years-old Female weakness acute weakness COMPARISON: Chest radiograph 08/25/2021 TECHNIQUE: Portable AP view of the chest FINDINGS: Cardiac mediastinal and hilar silhouettes are within normal limits. The lumen hemodialysis catheter is noted with distal tip in the expected location of the right atrium. No pneumothorax, large pleural effusion, overt pulmonary edema or focal airspace consolidation. The cardiomediastinal and hilar silhouettes are within normal limits. No acute fracture. IMPRESSION: No acute process. ACT 112: Negative or not required by law. The above report was generated using voice recognition software. It may contain grammatical, syntax or spelling errors. Electronically signed by: Abe Quan M.D. 09/19/2021 8:31 AM Dictated:09/19/21828 Transcribed: 09/19/[address] WITHOUT CONTRAST CT DOSE: 650.78 mGy.cm HISTORY: Fluid overload with ascites and right-sided abdominal wound poss ascities, right sided abd wound, dialysis pt TECHNIQUE: Multiaxial CT images of the abdomen and pelvis were performed without contrast. A dose lowering technique was utilized adhering to the principles of ALARA. COMPARISON STUDY: CT abdomen and pelvis 08/29/2021 FINDINGS: Partially imaged catheter within the right atrium. Cardiomegaly with decreased attenuation of the cardiac blood pool suggestive of anemia. Mild patchy bibasilar groundglass nodular opacities. Calcified granulomata of the right middle lobe. Trace left pleural effusion. There is no pneumatosis or pneumoperitoneum. Hepatosplenomegaly with hepatic steatosis redemonstrated. The liver measures up to 26.7 cm in length. The spleen measures 14.5 cm. Mild marginal nodularity of the liver suggested. Unremarkable pancreas and adrenal glands. Hyperdense layering material within the dependent gallbladder. The gallbladder is distended and demonstrates mild wall thickening. Unremarkable kidneys. Decompressed urinary bladder. Uterus and adnexa appear unremarkable. Mild atherosclerosis of the aorta without aneurysm. No adenopathy. Moderate abdominal pelvic ascites has progressed from comparison. There is generalized body wall edema. Small fat and fluid filled periumbilical hernia. No bowel obstruction or bowel wall thickening. The appendix is normal. Subcutaneous emphysema of the right lateral abdominal wall is noted with associated skin thickening, subcutaneous edema and small hematomas measuring up to 2.1 cm. No ac hoh fracture or suspicious bone lesion. Moderate superior endplate Schmorl's nodes at L3 and L5 are unchanged from comparison. No retropulsion or paravertebral edema. IMPRESSION: 1. Moderate abdominal pelvic ascites has increased from comparison. Trace left pleural effusion with mild body wall edema. 2. Skin thickening with subcutaneous edema and emphysema of the right lateral flank with small subcutaneous hematomas measuring up to 2.1 cm. This may be related to a medicinal injection site. Correlate with clinical exam findings. 3. Hepatosplenomegaly with hepatic steatosis and suggested cirrhosis. 4. Distended gallbladder with sludge versus cholelithiasis. 5. No bowel obstruction or bowel wall thickening. 6. Additional findings as above. ACT 112: Negative or not required by law. The above report was generated using voice recognition software. It may contain grammatical, syntax or spelling errors. Electronically signed by: Abe Quan M.D. 09/19/2021 9:10 AM Dictated:09/19/2150 Transcribed: 09/19/2156 Hospital Course (1) Acute blood loss anemia: (2) Cold agglutinin disease: (3) Coagulopathy: (4) Melena: -Admit to telemetry -Patient presenting by referral of outpatient PCP for evaluation of anemia and elevated INR -During recent admission, patient had been taking SQ Lovenox for management of left TDC thrombus -patient was transitioned to Eliquis. Unfortunately, patient also had Coumadin at home and reports that she has been taking both Coumadin and Eliquis. Last week, patient developed hematemesis and coffee-ground emesis and has been having dark stools. -In the ED, Hgb 5.6, INR > 10.0. Patient received IV vitamin K and PCC. -Patient is hemodynamically stable -S/P 3 units PRBC given during the hospital course -Trend H&H, transfuse additional PRBC as needed -Had EGD during recent admission that showed esophageal candidiasis-patient completed course of Diflucan - GI on board and does not plan for any procedure since pt had EGD done in her last admission -Continue PPI (5) Cirrhosis: (6) Ascites: -S/p 5.3 L paracentesis on 08/28 -CT ABD/pelvis shows worsening ascites -Abdominal exam benign, patient afebrile, no leukocytosis. Low suspicion for SBP at this time -Once coagulopathy reversed, consider paracentesis -S/P 3400 cc of serous ascites was aspirated. (7) RPGN (rapidly progressive glomerulonephritis): (8) ESRD on dialysis: -on prednisone 5 mg daily, Cytoxan has been on hold -Nephrology consult for dialysis orders -Continue routine renal medications (9) Bacteremia due to Gram-positive bacteria: -Recently had blood cultures positive for staph epidermis -Completed course of IV Vanco and Vanco lock therapy on 09/08 -Repeat blood cultures -Due to recent reports of low back pain in the setting of bacteremia, will order lumbar spine MRI to rule out osteomyelitis/discitis/epidural abscess (10) Open abdominal wall wound: -Open wound noted to right abdominal lateral wall -Outpatient wound culture from 09/05+ for cryptococcus and Acinetobacter -Completed course of fluconazole outpatient, on chronic suppressive therapy with Bactrim -No signs of abscess on CT. Patient does not appear septic -Also has 2 small indurated areas under mid abdominal fold. No drainage or fluctuance noted. Monitor closely (11) Chronic respiratory failure with hypoxia: -Saturating well on chronic 3 L of oxygen (12) Heart failure with preserved ejection fraction: -Appears euvolemic, volume managed with dialysis (13) Chronic deep vein thrombosis (DVT) of internal jugular vein: -Likely resume Eliquis once coagulopathy has been reversed and anemia stabilized (14) DVT prophylaxis: -SCDs for now Total Time Total Time Spent Total Time Spent (In Minutes): 35 minutes Discharge Plan Discharge Items Patient Disposition: Home - Self-Care Reason For Visit: ANEMIA,COAGULOPATHY Discharge Diagnosis: (1) Acute blood loss anemia: (2) Cold agglutinin disease: (3) Coagulopathy: (4) Melena (5) Cirrhosis: (6) Ascites: (7) RPGN (rapidly progressive glomerulonephritis): (8) ESRD on dialysis: Condition on Discharge: Fair Activity: Resume your previous activity Non-emergency contact: Primary Care Provider Call non-emergency contact if: you have any medication questions and your symptoms worsen Follow-up/Referrals: Andre Siegel MD [Primary Care Provider] - (Date & Time 09/25/2021 1:40 PM Provider Venita Hurtado PA-C Department [facility] ) Diet: Dialysis Renal Addtl Attending Provider Instructions: Follow up with your primary care provider Venita CEJA on 09/25/2021 at 1:40 PM at the [facility] Follow up with your nephrology Next dialysis is scheduled for tomorrow ( Saturday ) Check CBC on Saturday to monitor your hemoglobin Avoid any coumadin, NSAID (such as motrin, aleve, naproxen, ibuprofen, advil ) due to risk of bleeding Seek medical attention if symptoms worsening Fall precaution Pending Studies at Discharge: No Stand-Alone Forms: My [facility] [employer], Smoking Cessation Medications and DC Order Prescriptions: Continued folic acid 1 mg tablet 1 mg PO BID RF: 0 buprenorphine HCl 8 mg tablet, sublingual 8 mg SUBLINGUAL QAM RF: 0 omeprazole 20 mg capsule,delayed release(DR/EC) 20 mg PO QAM RF: 0 sulfamethoxazole-trimethoprim 800-160 mg tablet 1 tab PO 3XWK RF: 0 sevelamer carbonate 800 mg tablet 800 mg PO TIDM RF: 0 prednisone 5 mg tablet 5 mg PO QAM RF: 0 magnesium oxide 400 mg (241.3 mg magnesium) Tablet 400 mg PO DAILY RF: 0 calcium carbonate-vitamin D3 [Calcium 600 + D(3)] 600 mg(1,500mg) -400 unit tablet 1 tab PO QAM RF: 0 Discharge Orders: Discharge Order (Routine); Ordered 09/21/21 Ordered By: Aleexi Rivas Admission Data Admit Date/Time: 09/19/21 10:30 Attending Provider: Alexei Rivas Admit Provider: Janak Curiel Primary Care Provider: Andre Siegel Other Providers: Agustin Pierre ; Madison Narayan ; Gil Copeland Other Interventions: Discharge Summary Assessment (RN) Last Done: 09/21/21 15:37
[2021-09-22] MEDS ORDERED: SODIUM CHLORIDE 0.9% 1000ML 1,000 ML IV PRN (07:00)
[2021-09-22] MEDS ORDERED: EPOETIN ALFA 20,000 UNITS/ML VIAL IV SCH (09:00)
== END 2021-09-21 15:30 | disposition home or self-care (01) | DRG 811 ==
LOC: ED 07:02 → SUATTDRO 10:30 → 2S 10:30
DX: N18.6 End stage renal disease; K74.60 Unspecified cirrhosis of liver; I82.C29 Chronic embolism and thrombosis of unspecified internal jugular vein; D62 Acute posthemorrhagic anemia; W19.XXXA Unspecified fall, initial encounter; K92.2 Gastrointestinal hemorrhage, unspecified; S31.109A Unspecified open wound of abdominal wall, unspecified quadrant without penetration into peritoneal cavity, initial encounter; K92.1 Melena; B18.2 Chronic viral hepatitis C; J96.11 Chronic respiratory failure with hypoxia; N01.9 Rapidly progressive nephritic syndrome with unspecified morphologic changes; R18.8 Other ascites; Z99.2 Dependence on renal dialysis; R78.81 Bacteremia; I50.30 Unspecified diastolic (congestive) heart failure; Z79.01 Long term (current) use of anticoagulants

== ENCOUNTER 2021-11-17 15:34 | Inpatient (IN) ==
[2021-11-17] MEDS ORDERED: SODIUM CHLORIDE 0.9% 500 ML IV ONE ×2 (16:11→17:49)
[2021-11-17] MEDS ORDERED: PANTOprazole 40 MG in SYRINGE 0 ML IV ONE (16:16)
[2021-11-17] MEDS ORDERED: STAT IV STA (16:16)
[2021-11-17] MEDS ORDERED: OCTREOTIDE ACETATE 50 MCG in SYRINGE 9.5 ML IV STA (16:16)
[2021-11-17] MEDS ORDERED: OCTREOTIDE ACETATE 500 MCG in DEXTROSE 5% 100 ML IV SCH (16:30)
--- NOTE | 2021-11-17 16:39 | XRay Report ---
XR chest 1V portable CLINICAL HISTORY: SEPSIS. Abdominal pain and diarrhea. Evaluate lung bases COMPARISON STUDY: 10/11/2021 TECHNIQUE: 1 view of the chest FINDINGS: Single frontal view of the chest demonstrates the cardiomediastinal silhouette to be within normal li mits. Large-bore central venous catheter is again seen. There is a decreased inspiratory effort with elevation of the hemidiaphragms and crowding of the bronchovascular markings at the lung bases and ce ntrally. The lungs are clear of alveolar opacities. There is no evidence for pleural effusion. There is no evidence for vascular congestion. There is no acute osseous pathology. IMPRESSION: There is a decreased inspiratory effort with otherwise no acute chest disease. ACT 112: Negative or not required by law. Electronically signed by: Sukumar Garcia M.D. 11/17/2021 4:38 PM
[2021-11-17 16:46] LABS: INR 1.5 (0.9-1.1); Partial Thromboplastin Ratio 1.1; Partial Thromboplastin Time 28.8 Seconds (21.0-31.0); Prothrombin Time 15.1 Seconds (9.0-12.0)
[2021-11-17 16:56] LABS: Anisocytosis Present; Basophils # (auto) 0.03 K/uL (0-0.2); Basophils % (auto) 0.1 %; Eosinophils # (auto) 0.01 K/uL (0-0.5); Hematocrit (blood only) 23.8 % (37-47); Hemoglobin 7.7 g/dL (12.0-16.0); Immature Granulocytes # (auto) 0.19 K/uL (0.00-0.02); Immature Granulocytes % (auto) 0.6 %; Lymphocytes # (auto) 0.43 K/uL (1.2-3.4); Lymphocytes % (auto) 1.4 %; Mean Corpuscular Hemoglobin 34.2 pg (25-34); Mean Corpuscular Hgb Conc 32.4 g/dL (32-36); Mean Corpuscular Volume 105.8 fL (80-100); Mean Platelet Volume 12.5 fL (7.4-10.4); Neutrophils % (auto) 95.9 %; Nucleated RBC # (auto) 0.07 K/uL (0-0); Nucleated RBC % (auto) 0.2 %; Platelet Count 120 K/uL (130-400); Platelet Estimate Decreased (Normal); Poikilocytosis Present; RDW Coefficient of Variation 20.5 % (11.5-14.5); RDW Standard Deviation 78.3 fL (36.4-46.3); Red Blood Count 2.25 M/uL (4.2-5.4); White Blood Count 30.16 K/uL (4.8-10.8)
[2021-11-17 16:58] LABS: Troponin I < 0.03 ng/ml (0-0.04)
[2021-11-17 17:13] LABS: Alanine Aminotransferase 16 U/L (7-52); Albumin Globulin Ratio 0.6 (0.9-2); Albumin Level 2.5 gm/dl (3.4-5.0); Anion Gap 15 (3-11); BUN Creatinine Ratio 2.8 (10-20); Bilirubin,Total 6.4 mg/dl (0.2-1.0); Blood Urea Nitrogen 9 mg/dl (6-23); Calcium 8.5 mg/dl (8.5-10.1); Carbon Dioxide 18 mmol/L (21-32); Chloride 102 mmol/L (98-107); Creatinine Clr Calc Pharmacy 22.9 ml/min; Est GFR (African American) 20.3 ml/min; Est GFR (Non-African American) 17.5 ml/min; Globulin 3.9 gm/dl (2.5-4.0); Glucose 59 mg/dl (70-99); Phosphorus 1.7 mg/dl (2.5-4.9); Sodium 135 mmol/L (136-145); Total Protein 6.4 gm/dl (6.0-8.3)
[2021-11-17] MEDS ORDERED: OCTREOTIDE BOLUS FROM BAG IV ONE (17:15)
[2021-11-17 17:46] LABS: Reticulocytes # 0.08 10^6/uL (0.02-0.10)
--- NOTE | 2021-11-17 18:11 | Emergency Department Note ---
Impression & Plan Influenza A, Cirrhosis of liver, Metabolic acidosis, Elevated lactic acid level, Hypokalemia, Hypophosphatemia, ESRD on hemodialysis, Hypotension, Hypomagnesemia ED Provider Note NAME: ELYSSA MURRAY AGE: 41 SEX: F ARRIVES VIA: Ambulance INFORMANT: Patient ED PROVIDER(S): Toribio Perez MD CHIEF COMPLAINT: Nausea, vomiting, diarrhea. Blood and urine and stool. PLAN: Disposition: Admit MEDICAL DECISION MAKING: The patient is a pleasant 41-year-old woman with a past medical history of end- stage renal disease on hemodialysis, cirrhosis of the liver, chronic respiratory failure with hypoxia on 2L NC, CHF with preserved EF, Cold aggluttinin disease who presents to emergency department for evaluation of symptoms of nausea, vomiting and diarrhea with report of blood in her stool and urine which she reports has evolved over the past 2 weeks. She reports she felt so poorly this week that she did not go to dialysis on Saturday or Saturday. She did go today and completed her session but is unsure of how much fluid was removed. She denies fevers, chest pain, shortness of breath. She reports decreased oral intake and feeling generally weak. She reports she fell on Saturday and hit her head but denies LOC. She reports she has a single Moderna COVID-19 immunization. She denies any known COVID-19 exposures. On arrival patient is acute on chronically ill-appearing, afebrile with heart rate in the 100s and blood pressure hypotensive 70s-80s/30s-50s which was fluid responsive improving to 90s/50s with IV fluid hydration. He does appear clinically dry although she does have mildly distended abdomen that is soft and nontender in the setting of her cirrhosis. EKG without overt acute ischemia. Chest x-ray negative for acute cardiopulmon brett process. WBC 30K, nonspecific although elevated from prior. Does not occur in the setting of patient being on prednisone. Additionally the patient reports getting medication with dialysis for her anemia. H/H 7.7/23.8 decreased from recent however within prior range of values and with MCV that is macrocytic. Platelets 120K similar to prior range values. INR 1.5 similar to prior ranges of values in the setting of the patient's cirrhosis. VBG without acidemia. History however demonstrates metabolic acidosis with bicarb of 18 and anion gap of 15 with lactic acid 4.9 however in the setting of the patient's end-stage renal disease with creatinine of 3. Phosphorus 1.7. Repletion initiated. Total bilirubin 6.4 increased from October however similar to prior range of values. Direct bilirubin pending as it was hemolyzed x2. Procalcitonin is elevated at 4.7 however in the setting of the patient's end-stage renal disease. COVID-19 PCR was negative. Influenza PCR was positive. CT of the head negative for acute process. CT of the abdomen pelvis demonstrates patient's known cirrho sis with ascites that has progressed from prior. Note is made of sludge versus small stones within the gallbladder. However, cholecystitis is considered less likely at this time given patient's abdomen is nontender. Repeat chemistry following IV fluid hydration did show improvement in her metabolic acidosis with bicarb improved to 21 and anion gap of 12. Magnesium unfortunately hemolyzed however she was treated empirically for hypomagnesemia given her history of this and a low potassium. D50 given for hypoglycemia in the setting of patient's poor oral intake. Suspect patient's decompensation is related to her influenza infection provoking chronic medical conditions including her history of cold agglutinin disease. IV protonix and octreotide administered given her cirrhosis and report of blood in her stool, though this was brown and heme positive Will defer antibiotics to admitting team. Will defer paracentesis at this time given the patient's abdomen is nontender and she is on Eliquis. Patient agrees with plan for admission. Case was discussed with Dr. [facility], who will evaluate the patient for admission. Triage Nursing notes reviewed and agree them. Prior medical records reviewed Vital Signs: reviewed and remarkable for tachycardia/hypotension. Differential diagnosis: Infection, dehydration, metabolic abnormality, hypo/hyperglycemia, electrolyte disturbance, anemia, hypoxia, cardiac sources, intracerebral event, toxicologic, neurologic, as well as other pathologies. ER treatment provided: See below. Diagnostics interpreted by me: ECG: Sinus tachycardia, 117 bpm, no ectopy, nonspecific T wave abnormality, no overt ST elevation or depression, QTC 499 QRS 74. Cardiac Monitoring: An order for continuous cardiac monitoring was placed and demonstrated Sinus tachycardia, 117 bpm, no ectopy. Laboratory studies: See below Imaging studies: See below Consultation(s): Case was discussed with Dr. Alonzo [facility] hospitalist, who will evaluate the patient for admission. HPI: The patient is a pleasant 41-year-old woman with a past medical history of end-stage renal disease on hemodialysis, cirrhosis of the liver, chronic respiratory failure with hypoxia on 2L NC, CHF with preserved EF, Cold aggluttinin disease who presents to emergency department for evaluation of symptoms of nausea, vomiting and diarrhea with report of blood in her stool and urine which she reports has evolved over the past 2 weeks. She reports she felt so poorly this week that she did not go to dialysis on Saturday or Saturday. She did go today and completed her session but is unsure of how much fluid was removed. She denies fevers, chest pain, shortness of breath. She reports decreased oral intake and feeling generally weak. She reports she fell on Saturday and hit her head but denies LOC. She reports she has a single Moderna COVID-19 immunization. She denies any known COVID-19 exposures. ROS: See above HPI for pertinent positives & negatives. A total of 10 systems reviewed and were otherwise negative. PAST MEDICAL HISTORY:See Below PAST SURGICAL HISTORY:See Below FAMILY HISTORY:See Below SOCIAL HISTORY:See Below HOME MEDICATIONS:See Below ALLERGIES:See Below VITALS:See Below PHYSICAL EXAMINATION: GENERAL: Awake, alert, acute on chronically ill-appearing, in no distress HENT: Normocephalic, atraumatic. Oropharynx with dry mucous membranes and otherwise unremarkable. EYES: Normal conjunctiva. Sclera with mild icterus. NECK: Supple. No nuchal rigidity. FROM. No JVD. RESPIRATORY: Intermittent wheeze otherwise clear to auscultation. CARDIAC: Regular rate, normal rhythm. Extremities warm and well perfused. Pulses equal. ABDOMEN: Distended with ascites but soft. No tenderness to palpation. No rebound or guarding. No masses. RECTAL: Deferred. MUSCULOSKELETAL: Chest examination reveals no tenderness. The back is symmetrica l on inspection without obvious abnormality. There is no CVA tenderness to palpation. No joint edema. LOWER EXTREMITIES: Calves are equal size bilaterally and non-tender. No edema. No discoloration. NEURO: Normal sensorium. No sensory or motor deficits noted. SKIN: No rash. Mild jaundice noted. ED COURSE: Critical Care: I have personally spent greater than 95 minutes of critical care time in the direct management of this patient. This includes bedside care, interpretation of diagnostic studies, and testing, discussion with consultants, patient, and family members, and other required patient management activities. This 95 minutes is in excess of all separately billable procedures. Toribio Perez MD Past Med/Surg History Medical History Anemia Ascites Bacteremia due to Gram-positive bacteria Chronic deep vein thrombosis (DVT) of internal jugular vein Chronic respiratory failure with hypoxia Cirrhosis Cold agglutinin disease ESRD on dialysis Folate deficiency Heart failure with preserved ejection fraction Iron deficiency anemia Pleural effusion on left Pleural effusion on right Proteinuria RPGN (rapidly progressive glomerulonephritis) Smoker Surgical History History of bronchoscopy Hx of cardiac cath 08/15/2020: Right and left heart cath at [facility] [place] Family History Mother Lupus (systemic lupus erythematosus) Social History Smoking Status: Former smoker Tobacco Type: Cigarettes Cigarettes Per Day: 3; Hx Alcohol Use: No Hx Substance Use: No Preferred Language: Macanese Communication Ability: Effective Mechanical Striper Required: No Beliefs That Will Affect Care: None marital status: engaged Current Living Situation: Family Current Living Situation Comment: fiancee and 2 kids How many Children do You have: 2 Other Information That Helps Us Care for You: No Feels Safe at Home: Yes Safety Concerns: Feels Safe At This Time Assistive Devices: Oxygen - Continuous Allergies Allergies Allergy/AdvReac Type Severity Reaction Status Date / Time green pepper Allergy Severe Anaphylaxis Verified 11/17/21 19:41 mushroom Allergy Severe ANAPHYLAXIS Verified 11/17/21 19:41 onion Allergy Severe ANAPHYLAXIS Verified 11/17/21 19:41 fentanyl Allergy Intermediate Red, Hot, Unverified 11/17/21 19:41 Itchy Skin tramadol Allergy Mild RASH AND Verified 11/17/21 19:41 ITCHING ketorolac Allergy Unknown RASH Verified 11/17/21 19:41 Home Meds Home Medications Medication Instructions Recorded Confirmed folic acid 1 mg tablet 1 mg PO BID 07/30/20 11/17/21 buprenorphine HCl 8 mg sublingual 8 mg SUBLINGUAL DAILY 08/25/21 11/17/21 tablet omeprazole 20 mg capsule,delayed 20 mg PO QAM 08/25/21 11/17/21 release sevelamer carbonate 800 mg tablet 800 mg PO TIDM 08/25/21 11/17/21 sulfamethoxazole 800 1 tab PO 3XWK 08/25/21 11/17/21 mg-trimethoprim 160 mg tablet magnesium oxide 400 mg (241.3 mg 400 mg PO QAM 09/19/21 11/17/21 magnesium) tablet prednisone 5 mg tablet 5 mg PO QAM 09/19/21 11/17/21 lorazepam 0.5 mg tablet 0.5 mg PO TID PRN 10/11/21 11/17/21 apixaban 2.5 mg tablet (Eliquis) 2.5 mg PO BID 11/17/21 11/17/21 metoprolol succinate 25 mg 25 mg PO QAM 11/17/21 11/17/21 tablet,extended release 24 hr Results & Data (ED) Vital Signs Vital Signs - 24 hr 11/17/21 15:35 11/17/21 15:57 11/17/21 16:53 Temperature 37.4 C Temperature Source Core Pulse Rate 124 H Pulse Rate [Left Apical] Pulse Rhythm [Left Apical] Pulse Strength [Left Apical] Respiratory Rate 26 H Respiratory Effort / Characteristics Non-Labored Respiratory Depth Blood Pressure 88/50 L Blood Pressure [Right Arm] Blood Pressure Mean 62 Blood Pressure Mean [Right Arm] Blood Pressure Position [Right Arm] Pulse Oximetry 3 L 100 97 Oxygen Delivery Method Nasal Cannula Nasal Cannula Room Air Oxygen Flow Rate 3 Sepsis Recent Fever Within 48 Hours No Sepsis New/Unexplained Change in Mental Status N/A Sepsis Action Taken by Nursing No Action Required 11/17/21 16:55 11/17/21 17:32 11/17/21 17:54 Temperature Temperature Source Pulse Rate Pulse Rate [Left Apical] 133 H 124 H Pulse Rhythm [Left Apical] Regular Pulse Strength [Left Apical] Respiratory Rate 24 19 Respiratory Effort / Characteristics Non-Labored Non-Labored Non-Labored Respiratory Depth Normal Normal Blood Pressure Blood Pressure [Right Arm] 74/38 L 95/52 L Blood Pressure Mean Blood Pressure Mean [Right Arm] 50 66 Blood Pressure Position [Right Arm] Lying Pulse Oximetry 95 100 Oxygen Delivery Method Room Air Nasal Cannula Oxygen Flow Rate 4 Sepsis Recent Fever Within 48 Hours Sepsis New/Unexplained Change in Mental Status Sepsis Action Taken by Nursing 11/17/21 17:55 11/17/21 18:15 11/17/21 19:30 Temperature Temperature Source Pulse Rate Pulse Rate [Left Apical] 111 H 123 H 101 H Pulse Rhythm [Left Apical] Regular Regular Regular Pulse Strength [Left Apical] Normal Normal Normal Respiratory Rate 20 22 20 Respiratory Effort / Characteristics Non-Labored Non-Labored Non-Labored Respiratory Depth Normal Normal Normal Blood Pressure Blood Pressure [Right Arm] 95/52 L 96/56 L 70/48 L Blood Pressure Mean Blood Pressure Mean [Right Arm] 66 69 55 Blood Pressure Position [Right Arm] Lying Sitting Pulse Oximetry 100 96 99 Oxygen Delivery Method Nasal Cannula Nasal Cannula Nasal Cannula Oxygen Flow Rate 3 3 2 Sepsis Recent Fever Within 48 Hours Sepsis New/Unexplained Change in Mental Status Sepsis Action Taken by Nursing 11/17/21 20:00 11/17/21 20:01 Temperature Temperature Source Pulse Rate Pulse Rate [Left Apical] 107 H Pulse Rhythm [Left Apical] Regular Pulse Strength [Left Apical] Normal Respiratory Rate 20 Respiratory Effort / Characteristics Non-Labored Non-Labored Respiratory Depth Normal Blood Pressure Blood Pressure [Right Arm] 80/49 L Blood Pressure Mean Blood Pressure Mean [Right Arm] 59 Blood Pressure Position [Right Arm] Lying Pulse Oximetry 98 Oxygen Delivery Method Room Air Oxygen Flow Rate 3 Sepsis Recent Fever Within 48 Hours Sepsis New/Unexplained Change in Mental Status Sepsis Action Taken by Nursing Laboratory Data Attestation: I reviewed the patient's lab results. Result diagrams: 11/17/21 21:19 11/17/21 17:32 Lab Results 11/17/21 11/17/21 11/17/21 Range/Units 16:27 16:27 16:27 WBC 30.16 H* (4.8-10.8) K/uL RBC 2.25 L (4.2-5.4) M/uL Hgb 7.7 L (12.0-16.0) g/dL Hct 23.8 L (37-47) % MCV 105.8 H (80-100) fL MCH 34.2 H (25-34) pg MCHC 32.4 (32-36) g/dL RDW Std Deviation 78.3 H (36.4-46.3) fL RDW Coeff of Christine 20.5 H (11.5-14.5) % Plt Count 120 L (130-400) K/uL MPV 12.5 H (7.4-10.4) fL Immature Gran % (Auto) 0.6 % Neut % (Auto) 95.9 % Lymph % (Auto) 1.4 % Heard % (Auto) 2.0 % Eos % (Auto) 0.0 % Baso % (Auto) 0.1 % Reticulocyte % (Auto) (0.5-2.0) % Neut # (Auto) 28.90 H (1.4-6.5) K/uL Lymph # (Auto) 0.43 L (1.2-3.4) K/uL Heard # (Auto) 0.60 H (0.11-0.59) K/uL Eos # (Auto) 0.01 (0-0.5) K/uL Baso # (Auto) 0.03 (0-0.2) K/uL Reticulocyte # (0.02-0.10) 10^6/uL Immature Gran # (Auto) 0.19 H (0.00-0.02) K/uL Absolute Nucleated RBC 0.07 H (0-0) K/uL Nucleated RBC % (auto) 0.2 % Platelet Estimate Decreased L (Normal) Poikilocytosis Present Anisocytosis Present PT (9.0-12.0) Seconds INR (0.9-1.1) APTT (21.0-31.0) Seconds PTT Ratio VBG pH (7.36-7.41) VBG pCO2 (38-50) mmHg VBG pO2 mmHg VBG HCO3 mmol/L VBG O2 Saturation % VBG Base Excess mEq/L Barometric Pressure mm/Hg Sodium 135 L (136-145) mmol/L Potassium (3.5-5.1) mmol/L Chloride 102 (98-107) mmol/L Carbon Dioxide 18 L (21-32) mmol/L Anion Gap 15 H (3-11) BUN 9 (6-23) mg/dl Creatinine 3.18 H (0.6-1.2) mg/dl Est Cr Clr Drug Dosing 22.9 ml/min Est GFR ( Amer) 20.3 ml/min Est GFR (Non-Af Amer) 17.5 ml/min BUN/Creatinine Ratio 2.8 L (10-20) Glucose 59 L (70-99) mg/dl Lactate (0.4-2.0) mmol/L Calcium 8.5 (8.5-10.1) mg/dl Phosphorus 1.7 L (2.5-4.9) mg/dl Magnesium (1.7-2.4) mg/dl Iron (35-150) mcg/dl Transferrin (200-360) mg/dl Ferritin (8-388) ng/ml Total Bilirubin 6.4 H (0.2-1.0) mg/dl Direct Bilirubin (0-0.2) mg/dl AST (13-39) U/L ALT 16 (7-52) U/L Alkaline Phosphatase (34-104) U/L Troponin I < 0.03 (0-0.04) ng/ml Total Protein 6.4 (6.0-8.3) gm/dl Albumin 2.5 L (3.4-5.0) gm/dl Globulin 3.9 (2.5-4.0) gm/dl Albumin/Globulin Ratio 0.6 L (0.9-2) Lipase (11-82) U/L Vitamin B12 (211-911) pg/ml Folate (>5.38) ng/ml Procalcitonin 4.79 H (0-0.5) ng/ml TSH (0.300-4.500) uIu/ml SARS-CoV-2 (PCR) (Negative) Influenza Type A (PCR) (Neg) Influenza Type B (PCR) (Neg) RSV (RT-PCR) (Neg) Blood Type Antibody Screen Crossmatch 11/17/21 11/17/21 11/17/21 Range/Units 16:27 16:27 16:27 WBC (4.8-10.8) K/uL RBC (4.2-5.4) M/uL Hgb (12.0-16.0) g/dL Hct (37-47) % MCV (80-100) fL MCH (25-34) pg MCHC (32-36) g/dL RDW Std Deviation (36.4-46.3) fL RDW Coeff of Christine (11.5-14.5) % Plt Count (130-400) K/uL MPV (7.4-10.4) fL Immature Gran % (Auto) % Neut % (Auto) % Lymph % (Auto) % Heard % (Auto) % Eos % (Auto) % Baso % (Auto) % Reticulocyte % (Auto) (0.5-2.0) % Neut # (Auto) (1.4-6.5) K/uL Lymph # (Auto) (1.2-3.4) K/uL Heard # (Auto) (0.11-0.59) K/uL Eos # (Auto) (0-0.5) K/uL Baso # (Auto) (0-0.2) K/uL Reticulocyte # (0.02-0.10) 10^6/uL Immature Gran # (Auto) (0.00-0.02) K/uL Absolute Nucleated RBC (0-0) K/uL Nucleated RBC % (auto) % Platelet Estimate (Normal) Poikilocytosis Anisocytosis PT 15.1 H (9.0-12.0) Seconds INR 1.5 H (0.9-1.1) APTT 28.8 (21.0-31.0) Seconds PTT Ratio 1.1 VBG pH (7.36-7.41) VBG pCO2 (38-50) mmHg VBG pO2 mmHg VBG HCO3 mmol/L VBG O2 Saturation % VBG Base Excess mEq/L Barometric Pressure mm/Hg Sodium (136-145) mmol/L Potassium (3.5-5.1) mmol/L Chloride (98-107) mmol/L Carbon Dioxide (21-32) mmol/L Anion Gap (3-11) BUN (6-23) mg/dl Creatinine (0.6-1.2) mg/dl Est Cr Clr Drug Dosing ml/min Est GFR ( Amer) ml/min Est GFR (Non-Af Amer) ml/min BUN/Creatinine Ratio (10-20) Glucose (70-99) mg/dl Lactate 4.9 H* (0.4-2.0) mmol/L Calcium (8.5-10.1) mg/dl Phosphorus (2.5-4.9) mg/dl Magnesium (1.7-2.4) mg/dl Iron (35-150) mcg/dl Transferrin (200-360) mg/dl Ferritin (8-388) ng/ml Total Bilirubin (0.2-1.0) mg/dl Direct Bilirubin (0-0.2) mg/dl AST (13-39) U/L ALT (7-52) U/L Alkaline Phosphatase (34-104) U/L Troponin I (0-0.04) ng/ml Total Protein (6.0-8.3) gm/dl Albumin (3.4-5.0) gm/dl Globulin (2.5-4.0) gm/dl Albumin/Globulin Ratio (0.9-2) Lipase (11-82) U/L Vitamin B12 (211-911) pg/ml Folate (>5.38) ng/ml Procalcitonin (0-0.5) ng/ml TSH 4.401 (0.300-4.500) uIu/ml SARS-CoV-2 (PCR) (Negative) Influenza Type A (PCR) (Neg) Influenza Type B (PCR) (Neg) RSV (RT-PCR) (Neg) Blood Type Antibody Screen Crossmatch 11/17/21 11/17/21 11/17/21 Range/Units 17:32 17:32 17:32 WBC (4.8-10.8) K/uL RBC (4.2-5.4) M/uL Hgb (12.0-16.0) g/dL Hct (37-47) % MCV (80-100) fL MCH (25-34) pg MCHC (32-36) g/dL RDW Std Deviation (36.4-46.3) fL RDW Coeff of Christine (11.5-14.5) % Plt Count (130-400) K/uL MPV (7.4-10.4) fL Immature Gran % (Auto) % Neut % (Auto) % Lymph % (Auto) % Heard % (Auto) % Eos % (Auto) % Baso % (Auto) % Reticulocyte % (Auto) 4.0 H (0.5-2.0) % Neut # (Auto) (1.4-6.5) K/uL Lymph # (Auto) (1.2-3.4) K/uL Heard # (Auto) (0.11-0.59) K/uL Eos # (Auto) (0-0.5) K/uL Baso # (Auto) (0-0.2) K/uL Reticulocyte # 0.08 (0.02-0.10) 10^6/uL Immature Gran # (Auto) (0.00-0.02) K/uL Absolute Nucleated RBC (0-0) K/uL Nucleated RBC % (auto) % Platelet Estimate (Normal) Poikilocytosis Anisocytosis PT (9.0-12.0) Seconds INR (0.9-1.1) APTT (21.0-31.0) Seconds PTT Ratio VBG pH (7.36-7.41) VBG pCO2 (38-50) mmHg VBG pO2 mmHg VBG HCO3 mmol/L VBG O2 Saturation % VBG Base Excess mEq/L Barometric Pressure mm/Hg Sodium 135 L (136-145) mmol/L Potassium 2.7 L (3.5-5.1) mmol/L Chloride 102 (98-107) mmol/L Carbon Dioxide 21 (21-32) mmol/L Anion Gap 12 H (3-11) BUN 9 (6-23) mg/dl Creatinine 3.25 H (0.6-1.2) mg/dl Est Cr Clr Drug Dosing 22.4 ml/min Est GFR ( Amer) 19.8 ml/min Est GFR (Non-Af Amer) 17.1 ml/min BUN/Creatinine Ratio 2.8 L (10-20) Glucose 68 L (70-99) mg/dl Lactate (0.4-2.0) mmol/L Calcium 8.1 L (8.5-10.1) mg/dl Phosphorus (2.5-4.9) mg/dl Magnesium (1.7-2.4) mg/dl Iron 70 (35-150) mcg/dl Transferrin < 95 L (200-360) mg/dl Ferritin 732.2 H (8-388) ng/ml Total Bilirubin 6.4 H (0.2-1.0) mg/dl Direct Bilirubin (0-0.2) mg/dl AST 48 H (13-39) U/L ALT 11 (7-52) U/L Alkaline Phosphatase 113 H (34-104) U/L Troponin I (0-0.04) ng/ml Total Protein 6.1 (6.0-8.3) gm/dl Albumin 2.3 L (3.4-5.0) gm/dl Globulin 3.8 (2.5-4.0) gm/dl Albumin/Globulin Ratio 0.6 L (0.9-2) Lipase 25 (11-82) U/L Vitamin B12 (211-911) pg/ml Folate (>5.38) ng/ml Procalcitonin (0-0.5) ng/ml TSH (0.300-4.500) uIu/ml SARS-CoV-2 (PCR) (Negative) Influenza Type A (PCR) (Neg) Influenza Type B (PCR) (Neg) RSV (RT-PCR) (Neg) Blood Type Antibody Screen Crossmatch 11/17/21 11/17/21 11/17/21 Range/Units 17:32 17:34 17:34 WBC (4.8-10.8) K/uL RBC (4.2-5.4) M/uL Hgb (12.0-16.0) g/dL Hct (37-47) % MCV (80-100) fL MCH (25-34) pg MCHC (32-36) g/dL RDW Std Deviation (36.4-46.3) fL RDW Coeff of Christine (11.5-14.5) % Plt Count (130-400) K/uL MPV (7.4-10.4) fL Immature Gran % (Auto) % Neut % (Auto) % Lymph % (Auto) % Heard % (Auto) % Eos % (Auto) % Baso % (Auto) % Reticulocyte % (Auto) (0.5-2.0) % Neut # (Auto) (1.4-6.5) K/uL Lymph # (Auto) (1.2-3.4) K/uL Heard # (Auto) (0.11-0.59) K/uL Eos # (Auto) (0-0.5) K/uL Baso # (Auto) (0-0.2) K/uL Reticulocyte # (0.02-0.10) 10^6/uL Immature Gran # (Auto) (0.00-0.02) K/uL Absolute Nucleated RBC (0-0) K/uL Nucleated RBC % (auto) % Platelet Estimate (Normal) Poikilocytosis Anisocytosis PT (9.0-12.0) Seconds INR (0.9-1.1) APTT (21.0-31.0) Seconds PTT Ratio VBG pH (7.36-7.41) VBG pCO2 (38-50) mmHg VBG pO2 mmHg VBG HCO3 mmol/L VBG O2 Saturation % VBG Base Excess mEq/L Barometric Pressure mm/Hg Sodium (136-145) mmol/L Potassium (3.5-5.1) mmol/L Chloride (98-107) mmol/L Carbon Dioxide (21-32) mmol/L Anion Gap (3-11) BUN (6-23) mg/dl Creatinine (0.6-1.2) mg/dl Est Cr Clr Drug Dosing ml/min Est GFR ( Amer) ml/min Est GFR (Non-Af Amer) ml/min BUN/Creatinine Ratio (10-20) Glucose (70-99) mg/dl Lactate (0.4-2.0) mmol/L Calcium (8.5-10.1) mg/dl Phosphorus (2.5-4.9) mg/dl Magnesium 1.4 L (1.7-2.4) mg/dl Iron (35-150) mcg/dl Transferrin (200-360) mg/dl Ferritin (8-388) ng/ml Total Bilirubin (0.2-1.0) mg/dl Direct Bilirubin (0-0.2) mg/dl AST (13-39) U/L ALT (7-52) U/L Alkaline Phosphatase (34-104) U/L Troponin I (0-0.04) ng/ml Total Protein (6.0-8.3) gm/dl Albumin (3.4-5.0) gm/dl Globulin (2.5-4.0) gm/dl Albumin/Globulin Ratio (0.9-2) Lipase (11-82) U/L Vitamin B12 > 1500 H (211-911) pg/ml Folate 21.19 (>5.38) ng/ml Procalcitonin (0-0.5) ng/ml TSH (0.300-4.500) uIu/ml SARS-CoV-2 (PCR) (Negative) Influenza Type A (PCR) (Neg) Influenza Type B (PCR) (Neg) RSV (RT-PCR) (Neg) Blood Type A Positive Antibody Screen NEGATIVE Crossmatch See Detail 11/17/21 11/17/21 Range/Units 17:34 17:45 WBC (4.8-10.8) K/uL RBC (4.2-5.4) M/uL Hgb (12.0-16.0) g/dL Hct (37-47) % MCV (80-100) fL MCH (25-34) pg MCHC (32-36) g/dL RDW Std Deviation (36.4-46.3) fL RDW Coeff of Christine (11.5-14.5) % Plt Count (130-400) K/uL MPV (7.4-10.4) fL Immature Gran % (Auto) % Neut % (Auto) % Lymph % (Auto) % Heard % (Auto) % Eos % (Auto) % Baso % (Auto) % Reticulocyte % (Auto) (0.5-2.0) % Neut # (Auto) (1.4-6.5) K/uL Lymph # (Auto) (1.2-3.4) K/uL Heard # (Auto) (0.11-0.59) K/uL Eos # (Auto) (0-0.5) K/uL Baso # (Auto) (0-0.2) K/uL Reticulocyte # (0.02-0.10) 10^6/uL Immature Gran # (Auto) (0.00-0.02) K/uL Absolute Nucleated RBC (0-0) K/uL Nucleated RBC % (auto) % Platelet Estimate (Normal) Poikilocytosis Anisocytosis PT (9.0-12.0) Seconds INR (0.9-1.1) APTT (21.0-31.0) Seconds PTT Ratio VBG pH 7.36 (7.36-7.41) VBG pCO2 37 L (38-50) mmHg VBG pO2 27 mmHg VBG HCO3 20 mmol/L VBG O2 Saturation < 60.0 % VBG Base Excess -4.7 mEq/L Barometric Pressure 732.1 mm/Hg Sodium (136-145) mmol/L Potassium (3.5-5.1) mmol/L Chloride (98-107) mmol/L Carbon Dioxide (21-32) mmol/L Anion Gap (3-11) BUN (6-23) mg/dl Creatinine (0.6-1.2) mg/dl Est Cr Clr Drug Dosing ml/min Est GFR ( Amer) ml/min Est GFR (Non-Af Amer) ml/min BUN/Creatinine Ratio (10-20) Glucose (70-99) mg/dl Lactate (0.4-2.0) mmol/L Calcium (8.5-10.1) mg/dl Phosphorus (2.5-4.9) mg/dl Magnesium (1.7-2.4) mg/dl Iron (35-150) mcg/dl Transferrin (200-360) mg/dl Ferritin (8-388) ng/ml Total Bilirubin (0.2-1.0) mg/dl Direct Bilirubin (0-0.2) mg/dl AST (13-39) U/L ALT (7-52) U/L Alkaline Phosphatase (34-104) U/L Troponin I (0-0.04) ng/ml Total Protein (6.0-8.3) gm/dl Albumin (3.4-5.0) gm/dl Globulin (2.5-4.0) gm/dl Albumin/Globulin Ratio (0.9-2) Lipase (11-82) U/L Vitamin B12 (211-911) pg/ml Folate (>5.38) ng/ml Procalcitonin (0-0.5) ng/ml TSH (0.300-4.500) uIu/ml SARS-CoV-2 (PCR) NEGATIVE (Negative) Influenza Type A (PCR) Positive A* (Neg) Influenza Type B (PCR) Negative (Neg) RSV (RT-PCR) Negative (Neg) Blood Type Antibody Screen Crossmatch Administered Medications Discontinued Medications Dextrose (Dextrose 50% 50 Ml Syringe) 50 ml IV NOW ONE Stop: 11/17/21 19:36 Last Admin: 11/17/21 20:16 Dose: 50 ml Documented by: [id number] Sodium Chloride (Nss) 500 mls @ 999 mls/hr IV .Q31M ONE Stop: 11/17/21 16:41 Last Infusion: 11/17/21 18:36 Dose: 0 mls/hr Documented by: [id number] Admin: 11/17/21 16:15 Dose: 999 mls/hr Documented by: [id number] Pantoprazole Sodium 40 mg/ (Syringe) 10 mls @ 5 mls/min IV NOW ONE Stop: 11/17/21 16:17 Last Admin: 11/17/21 17:34 Dose: 5 mls/min Documented by: [id number] Octreotide Acetate 500 mcg/ (Dextrose) 105 mls @ 10.5 mls/hr IV .Q10H ALLY Stop: 12/17/21 16:29 Last Admin: 11/17/21 17:35 Dose: 50 mcg/hr, 10.5 mls/hr Documented by: [id number] Sodium Chloride (Nss) 500 mls @ 999 mls/hr IV .Q31M ONE Stop: 11/17/21 18:19 Last Infusion: 11/17/21 18:36 Dose: 0 mls/hr Documented by: [id number] Admin: 11/17/21 18:21 Dose: 999 mls/hr Documented by: [id number] Potassium Phosphate 6 mmol/ (Dextrose) 252 mls @ 252 mls/hr IV 1815 ONE Stop: 11/17/21 19:14 Last Infusion: 11/17/21 22:15 Dose: 0 mls/hr Documented by: [id number] Admin: 11/17/21 18:22 Dose: 252 mls/hr Documented by: [id number] Potassium Chloride (K Miguel / Wtr) 10 meq in 100 mls @ 100 mls/hr IV Q1H ALLY; Protocol Stop: 11/17/21 20:29 Last Admin: 11/17/21 20:16 Dose: 100 mls/hr Documented by: [id number] Magnesium Sulfate/Dextrose (Magnesium Sulfate / D5w) 1 gm in 100 mls @ 100 mls/hr IV Q1H ALLY Stop: 11/17/21 21:44 Last Infusion: 11/17/21 23:22 Dose: 0 mls/hr Documented by: [id number] Admin: 11/17/21 22:07 Dose: 100 mls/hr Documented by: [id number] Infusion: 11/17/21 21:17 Dose: 100 mls/hr Documented by: [id number] Admin: 11/17/21 20:17 Dose: 100 mls/hr Documented by: [id number] Albumin Human (Albumin 25% 100 Ml) 25 gm in 100 mls @ 50 mls/hr IV ONE ONE Stop: 11/17/21 21:48 Last Infusion: 11/17/21 22:15 Dose: 0 mls/hr Documented by: [id number] Admin: 11/17/21 20:17 Dose: 50 mls/hr Documented by: [id number] Ceftriaxone Sodium (Rocephin) 1,000 mg in 50 mls @ 100 mls/hr IV NOW STA Stop: 11/17/21 20:19 Last Infusion: 11/17/21 22:15 Dose: 0 mls/hr Documented by: [id number] Admin: 11/17/21 20:17 Dose: 100 mls/hr Documented by: [id number] Dexamethasone 4 mg/ Syringe 1 mls @ 1 mls/min IV ONE ONE Stop: 11/17/21 20:01 Last Admin: 11/17/21 20:34 Dose: 1 mls/min Documented by: [id number] Metronidazole (Metronidazole 500 Mg Tab) 500 mg PO NOW STA Stop: 11/17/21 20:51 Last Admin: 11/17/21 22:09 Dose: 500 mg Documented by: [id number] Miscellaneous (Stat Iv) 1 ea N/A NOW STA Stop: 11/17/21 16:17 Last Admin: 11/17/21 17:36 Dose: 1 ea Documented by: [id number] Octreotide Acetate (Octreotide Bolus From Bag) 50 mcg IV ONE ONE Stop: 11/17/21 17:16 Last Admin: 11/17/21 17:36 Dose: 50 mcg Documented by: [id number] Oseltamivir Phosphate (Oseltamivir Phosphate Susp 30 Mg/5 Ml Udp) 30 mg PO NOW STA; Protocol Stop: 11/17/21 20:19 Last Admin: 11/17/21 21:14 Dose: 30 mg Documented by: [id number] Potassium Phosphate (Potassium Phos 3 Mmol/1 Ml Infusion) 6 mmol IV NOW STA Stop: 11/17/21 17:20 Last Admin: 11/17/21 18:23 Dose: Not Given Documented by: [id number] Imaging Data Radiologist's Impression: Chest X-Ray 11/17/21 16:08 XR chest 1V portable CLINICAL HISTORY: SEPSIS. Abdominal pain and diarrhea. Evaluate lung bases COMPARISON STUDY: 10/11/2021 TECHNIQUE: 1 view of the chest FINDINGS: Single frontal view of the chest demonstrates the cardiomediastinal silhouette to be within normal limits. Large-bore central venous catheter is again seen. There is a decreased inspiratory effort with elevation of the hemidiaphragms and crowding of the bronchovascular markings at the lung bases and centrally. The lungs are clear of alveolar opacities. There is no evidence for pleural effusion. There is no evidence for vascular congestion. There is no acute osseous pathology. IMPRESSION: There is a decreased inspiratory effort with otherwise no acute chest disease. ACT 112: Negative or not required by law. Electronically signed by: Sukumar Garcia M.D. 11/17/2021 4:38 PM Abdomen/Pelvis CT 11/17/21 17:19 CT abd pelvis wo con CLINICAL HISTORY: sepsis . Status post fall 2 days ago. Nausea. COMPARISON STUDY: 09/19/2021 CT DOSE: 1440.14 mGy.cm TECHNIQUE: Standard CT of the Abdomen and Pelvis was performed without IV contrast. The patient did not receive oral contrast. A dose lowering technique was utilized adhering to the principles of ALARA. FINDINGS: Lung base: The lung bases are clear. There is minimal bibasilar atelectasis present. Abdominal cavity: Compared to the previous examination, there is now marked abdominal and pelvic ascites. Liver: The liver is again enlarged with fatty infiltration evidence for cirrhosis.. Spleen: There is again evidence for splenomegaly as well. Pancreas: The pancreas is homogeneous in attenuation on these limited noncontrast images. Gall Bladder: The gallbladder is distended with evidence for sludge versus small stones again seen. Adrenal glands: The adrenal glands are normal in size and attenuation on these limited noncontrast images. Kidneys: The kidneys are homogeneous in attenuation on these limited noncontrast images. There is no evidence for gross renal mass, calculus or hydronephrosis bi laterally. Bowel: The bowel loops are normally placed within the abdomen and pelvis without evidence for dilatation or obstruction. There is no evidence for mass lesion. There are no inflammatory changes present. There is no evidence for free air. The appendix is not visualized. Bladder: There is no evidence for focal bladder wall thickening, calculus or diverticulum. : There is no evidence for pelvic mass or adenopathy. Vasculature: There is no evidence for focal aneurysmal dilatation of the abdominal aorta. Osseous structures: There is no acute osseous pathology. IMPRESSION: 1. Compared to previous examination, there is now marked abdominal and pelvic ascites which has increased since the previous study. 2. There is again hepatosplenomegaly with evidence for fatty infiltration of the liver and probable cirrhosis. 3. Sludge versus small stones within the gallbladder is again seen. 4. No evidence for bowel loop dilatation or obstruction. 5. Additional nonacute findings are delineated above. ACT 112: Negative or not required by law. Electronically signed by: Sukumar Garcia M.D. 11/17/2021 6:[address] 11/17/21 17:49 CT head/brain wo con CLINICAL HISTORY: fall 2 days ago, headstrike, nausea COMPARISON STUDY: No previous studies for comparison. CT DOSE: TECHNIQUE: Standard CT of the Brain was performed without IV contrast. A dose lowering technique was utilized adhering to the principles of ALARA. FINDINGS: Extraaxial space: There is no evidence for subdural hematoma. There are no extra-axial fluid collections. Ventricles and cisterns: The ventricles are normal in size and configuration. There is no evidence for midline shift or mass effect. Parenchyma: There is no subarachnoid or intraparenchymal hemorrhage. There is no evidence for an acute infarct or cerebral edema. There is homogeneous attenuation of the brain parenchyma. There are no gross mass lesions. Osseous structures: There is no evidence for an acute fracture. The visualized paranasal sinuses are clear. The mastoid air cells are clear bilaterally. Soft tissues: There is no evidence for focal soft tissue swelling. IMPRESSION: No acute intracerebral pathology. ACT 112: Negative or not required by law. Electronically signed by: Sukumar Garcia M.D. 11/17/2021 6:29 PM Discharge Plan Visit Data Chief Complaint: Abdominal Pain Stated Complaint: WEAKNESS, DIARRHEA ED Provider: Toribio Perez Discharge Problem: Influenza A, Cirrhosis of liver, Metabolic acidosis, Elevated lactic acid level, Hypokalemia, Hypophosphatemia, ESRD on hemodialysis, Hypotension, Hypomagnesemia Patient Disposition: Admitted As Inpatient Discharge Instructions Interventions: ED Discharge Assessment Last Done: 11/17/21 22:15
[2021-11-17 18:12] LABS: Oxygen Saturation VBG < 60.0 %
[2021-11-17 18:13] LABS: Base Excess VBG -4.7 mEq/L; HCO3 VBG 20 mmol/L; PCO2 VBG 37 mmHg (38-50); PO2 VBG 27 mmHg; pH VBG 7.36 (7.36-7.41)
[2021-11-17 18:17] LABS: Alanine Aminotransferase 11 U/L (7-52); Albumin Globulin Ratio 0.6 (0.9-2); Albumin Level 2.3 gm/dl (3.4-5.0); Alkaline Phosphatase 113 U/L (34-104); Anion Gap 12 (3-11); Aspartate Aminotransferase 48 U/L (13-39); BUN Creatinine Ratio 2.8 (10-20); Bilirubin,Total 6.4 mg/dl (0.2-1.0); Blood Urea Nitrogen 9 mg/dl (6-23); Calcium 8.1 mg/dl (8.5-10.1); Carbon Dioxide 21 mmol/L (21-32); Chloride 102 mmol/L (98-107); Creatinine Clr Calc Pharmacy 22.4 ml/min; Est GFR (African American) 19.8 ml/min; Est GFR (Non-African American) 17.1 ml/min; Globulin 3.8 gm/dl (2.5-4.0); Glucose 68 mg/dl (70-99); Iron 70 mcg/dl (35-150); Potassium 2.7 mmol/L (3.5-5.1); Sodium 135 mmol/L (136-145); Total Protein 6.1 gm/dl (6.0-8.3)
[2021-11-17] MEDS: DEXTROSE 5% IV ONE ×2 (18:21→18:22)
[2021-11-17] MEDS: POTASSIUM PHOS 3 MMOL/1 ML INFUSION IV STA ×3 (18:21→18:23)
[2021-11-17] MEDS: POTASSIUM PHOSPHATE IV ONE ×2 (18:21→18:22)
--- NOTE | 2021-11-17 18:30 | CT Scan Report ---
CT head/brain wo con CLINICAL HISTORY: fall 2 days ago, headstrike, nausea COMPARISON STUDY: No previous studies for comparison. CT DOSE: TECHNIQUE: Standard CT of the Brain was performed without IV contrast. A dose lowering technique was utilized adhering to the principles of ALARA. FINDINGS: Extraaxial space: There is no evidence for subdural hematoma. There are no extra-axial fluid collecti ons. Ventricles and cisterns: The ventricles are normal in size and configuration. There is no evidence f or midline shift or mass effect. Parenchyma: There is no subarachnoid or intraparenchymal hemorrhage. There is no evidence for an acu te infarct or cerebral edema. There is homogeneous attenuation of the brain parenchyma. There are no gross mass lesions. Osseous structures: There is no evidence for an acute fracture. The visualized paranasal sinuses are clear. The mastoid air cells are clear bilaterally. Soft tissues: There is no evidence for focal soft tissue swelling. IMPRESSION: No acute intracerebral pathology. ACT 112: Negative or not required by law. Electronically signed by: Sukumar Garcia M.D. 11/17/2021 6:29 PM
[2021-11-17 18:33] LABS: Ferritin 732.2 ng/ml (8-388)
[2021-11-17 18:35] LABS: Folate (Folic Acid) 21.19 ng/ml (>5.38)
--- NOTE | 2021-11-17 18:35 | CT Scan Report ---
CT abd pelvis wo con CLINICAL HISTORY: sepsis . Status post fall 2 days ago. Nausea. COMPARISON STUDY: 09/19/2021 CT DOSE: 1440.14 mGy.cm TECHNIQUE: Standard CT of the Abdomen and Pelvis was performed without IV contrast. The patient did not receive oral contrast. A dose lowering technique was utilized adhering to the principles of REGLA Hodge FINDINGS: Lung base: The lung bases are clear. There is minimal bibasilar atelectasis present. Abdominal cavity: Compared to the previous examination, there is now marked abdominal and pelvic asci juliann. Liver: The liver is again enlarged with fatty infiltration evidence for cirrhosis.. Spleen: There is again evidence for splenomegaly as well. Pancreas: The pancreas is homogeneous in attenuation on these limited noncontrast images. Gall Bladder: The gallbladder is distended with evidence for sludge versus small stones again seen. Adrenal glands: The adrenal glands are normal in size and attenuation on these limited noncontrast im ages. Kidneys: The kidneys are homogeneous in attenuation on these limited noncontrast images. There is no evidence for gross renal mass, calculus or hydronephrosis bilaterally. Bowel: The bowel loops are normally placed within the abdomen and pelvis without evidence for dilatat ion or obstruction. There is no evidence for mass lesion. There are no inflammatory changes present. There is no evidence for free air. The appendix is not visualized. Bladder: There is no evidence for focal bladder wall thickening, calculus or diverticulum. : There is no evidence for pelvic mass or adenopathy. Vasculature: There is no evidence for focal aneurysmal dilatation of the abdominal aorta. Osseous structures: There is no acute osseous pathology. IMPRESSION: 1. Compared to previous examination, there is now marked abdominal and pelvic ascites which has incre ased since the previous study. 2. There is again hepatosplenomegaly with evidence for fatty infiltration of the liver and probable c irrhosis. 3. Sludge versus small stones within the gallbladder is again seen. 4. No evidence for bowel loop dilatation or obstruction. 5. Additional nonacute findings are delineated above. ACT 112: Negative or not required by law. Electronically signed by: Sukumar Garcia M.D. 11/17/2021 6:33 PM
[2021-11-17 18:36] LABS: Vitamin B12 > 1500 pg/ml (211-911)
[2021-11-17 18:41] LABS: Influenza B virus by PCR Negative (Neg); RSV by PCR Negative (Neg); SARS CoV2 RNA(COVID-19) InHosp NEGATIVE (Negative)
[2021-11-17 19:18] LABS: Influenza A virus by PCR Positive (Neg)
[2021-11-17] MEDS ORDERED: DEXTROSE 50% 50 ML SYRINGE IV ONE (19:35)
[2021-11-17] MEDS ORDERED: ALBUMIN 25% 100 mL 25 GM/100 ML VIAL IV ONE (19:49)
[2021-11-17] MEDS ORDERED: cefTRIAXone SODIUM 1,000 MG/50 ML BAG IV STA (19:50)
[2021-11-17] MEDS ORDERED: dexAMETHasone 4 MG in SYRINGE 0 ML IV ONE (20:00)
--- NOTE | 2021-11-17 20:10 | History & Physical Report ---
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 Assessment and Plan per Dr Alonzo. See addendum. History of Present Illness Chief Complaint: Diarrhea Primary Care Provider: Andre Siegel MD Patient is a 41-year-old female with PMH progressive glomerulonephritis leading to ESRD on dialysis since April-May 2021 on Saturday schedule, chronic respiratory failure with hypoxia on 2.5-3L O2, diastolic heart failure, cirrhosis, cold agglutinin disease, previously required plasmapheresis, anemia, depression, hepatitis C, left IJ TDC thrombus presented to ER with c/o diarrhea x 2 weeks. Patient reports last week with 6 episodes of diarrhea daily, the past several days with numerous episodes and has been needing to wear depends. Reports stool is dark brown and red flecks. She reports nausea. Patient denies vomiting to this provider. She reports past couple of months of been having increased abdominal distention. She reports a large stretch dee to right side of abdomen is itchy and uncomfortable with palpation. Reports feels pressure to abdomen. Denies any other abdominal discomfort. Reports still makes urine however past couple of days she is unsure how much she is urinating or the color of her urine secondary to being unsure if she is urinating while she is having diarrhea bowel movements. States has had slight intermittent nonproductive cough. Denies any known fever or chills. She reports diffuse body aches with palpation of her body that has been ongoing. She denies any known ill contacts. Reports had 1 COVID-19 vaccine. Reports had influenza vaccine this season. She missed her dialysis on Saturday and Saturday however did go today. She believes she finished the course of dialysis. Denies BOOTH, dizziness, syncope, vision changes, neck pain, CP, increased SOB, orthopnea, palpitations, sore throat, choking, otalgia, rhinorrhea,extremity edema, rashes. Allergies Allergy/AdvReac Type Severity Reaction Status Date / Time green pepper Allergy Severe Anaphylaxis Verified 11/17/21 19:41 mushroom Allergy Severe ANAPHYLAXIS Verified 11/17/21 19:41 onion Allergy Severe ANAPHYLAXIS Verified 11/17/21 19:41 fentanyl Allergy Intermediate Red, Hot, Unverified 11/17/21 19:41 Itchy Skin tramadol Allergy Mild RASH AND Verified 11/17/21 19:41 ITCHING ketorolac Allergy Unknown RASH Verified 11/17/21 19:41 Home Medications Medication Instructions Recorded Confirmed Type folic acid 1 mg tablet 1 mg PO BID 07/30/20 11/17/21 History buprenorphine HCl 8 mg sublingual 8 mg SUBLINGUAL DAILY 08/25/21 11/17/21 History tablet omeprazole 20 mg capsule,delayed 20 mg PO QAM 08/25/21 11/17/21 History release sevelamer carbonate 800 mg tablet 800 mg PO TIDM 08/25/21 11/17/21 History sulfamethoxazole 800 1 tab PO 3XWK 08/25/21 11/17/21 History mg-trimethoprim 160 mg tablet magnesium oxide 400 mg (241.3 mg 400 mg PO QAM 09/19/21 11/17/21 History magnesium) tablet prednisone 5 mg tablet 5 mg PO QAM 09/19/21 11/17/21 History lorazepam 0.5 mg tablet 0.5 mg PO TID PRN 10/11/21 11/17/21 History apixaban 2.5 mg tablet (Eliquis) 2.5 mg PO BID 11/17/21 11/17/21 History metoprolol succinate 25 mg 25 mg PO QAM 11/17/21 11/17/21 History tablet,extended release 24 hr Past Med/Surg History Medical History Anemia Ascites Bacteremia due to Gram-positive bacteria Chronic deep vein thrombosis (DVT) of internal jugular vein Chronic respiratory failure with hypoxia Cirrhosis Cold agglutinin disease ESRD on dialysis Folate deficiency Heart failure with preserved ejection fraction Iron deficiency anemia Pleural effusion on left Pleural effusion on right Proteinuria RPGN (rapidly progressive glomerulonephritis) Smoker Surgical History History of bronchoscopy Hx of cardiac cath 08/15/2020: Right and left heart cath at [facility] [place] Family History Mother Lupus (systemic lupus erythematosus) Social History Smoking Status: Former smoker Tobacco Type: Cigarettes Cigarettes Per Day: 3; Hx Alcohol Use: No Hx Substance Use: No Preferred Language: Albanian Communication Ability: Effective 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 Beliefs That Will Affect Care: None marital status: engaged Current Living Situation: Family Current Living Situation Comment: fiancee and 2 kids How many Children do You have: 2 Other Information That Helps Us Care for You: No Feels Safe at Home: Yes Safety Concerns: Feels Safe At This Time Assistive Devices: Oxygen - Continuous Review of Systems Review of Systems: All systems reviewed & are unremarkable except as noted in HPI & below Physical Exam Physical Exam: General: no acute distress, chronic ill appearing, appears older than stated age Head: normocephalic, atraumatic Eyes: PERRL, EOM's intact, conjunctiva non-injected, pale, anicteric ENT: normal inspection external ears, nose, mucous membranes moist Neck: supple, trachea midline Lungs: clear, no respiratory distress on current 3L NC, no wheezing/rhonchi/rales CV: tachycardia, rate 114, no pretibial edema Abd: +distended, firm, +stiae noted, normal BS, soft, non-tender to palpation Ext: no cyanosis, no calf tenderness Neuro: A&O x 3, no focal deficits noted, normal affect Skin: warm, dry, pale Results & Data Results & Data ([facility]) Vital Signs (Past 12 Hours) Vital Signs Temp Pulse Pulse Resp BP BP Pulse Ox 11/17/21 20:00 114 H 20 104/54 L 98 11/17/21 18:15 123 H 22 96/56 L 96 11/17/21 17:55 111 H 20 95/52 L 100 11/17/21 17:32 124 H 19 95/52 L 100 11/17/21 16:55 133 H 24 74/38 L 95 11/17/21 16:53 97 11/17/21 15:57 100 11/17/21 15:35 37.4 C 124 H 26 H 88/50 L 3 L Laboratory Results Short CBC 11/17/21 11/17/21 Range/Units 16:27 21:19 WBC 30.16 H* (4.8-10.8) K/uL Hgb 7.7 L 5.5 L* (12.0-16.0) g/dL Hct 23.8 L 16.7 L* (37-47) % Plt Count 120 L (130-400) K/uL BMP 11/17/21 11/17/21 16:27 17:32 Sodium 135 L 135 L Potassium 2.7 L Chloride 102 102 Carbon Dioxide 18 L 21 BUN 9 9 Creatinine 3.18 H 3.25 H Glucose 59 L 68 L Calcium 8.5 8.1 L Cardiac Enzymes 11/17/21 Range/Units 16:27 Troponin I < 0.03 (0-0.04) ng/ml Liver Function 11/17/21 11/17/21 Range/Units 16:27 17:32 Total Bilirubin 6.4 H 6.4 H (0.2-1.0) mg/dl Direct Bilirubin (0-0.2) mg/dl AST 48 H (13-39) U/L ALT 16 11 (7-52) U/L Alkaline Phosphatase 113 H (34-104) U/L Albumin 2.5 L 2.3 L (3.4-5.0) gm/dl Diagnostic Findings Chest X-Ray 11/17/21 16:08 XR chest 1V portable CLINICAL HISTORY: SEPSIS. Abdominal pain and diarrhea. Evaluate lung bases COMPARISON STUDY: 10/11/2021 TECHNIQUE: 1 view of the chest FINDINGS: Single frontal view of the chest demonstrates the cardiomediastinal silhouette to be within normal limits. Large-bore central venous catheter is again seen. There is a decreased inspiratory effort with elevation of the hemidiaphragms and crowding of the bronchovascular markings at the lung bases and centrally. The lungs are clear of alveolar opacities. There is no evidence for pleural effusion. There is no evidence for vascular congestion. There is no acute osseous pathology. IMPRESSION: There is a decreased inspiratory effort with otherwise no acute chest disease. ACT 112: Negative or not required by law. Electronically signed by: Sukumar Garcia M.D. 11/17/2021 4:38 PM Abdomen/Pelvis CT 11/17/21 17:19 CT abd pelvis wo con CLINICAL HISTORY: sepsis . Status post fall 2 days ago. Nausea. COMPARISON STUDY: 09/19/2021 CT DOSE: 1440.14 mGy.cm TECHNIQUE: Standard CT of the Abdomen and Pelvis was performed without IV contrast. The patient did not receive oral contrast. A dose lowering technique was utilized adhering to the principles of ALARA. FINDINGS: Lung base: The lung bases are clear. There is minimal bibasilar atelectasis present. Abdominal cavity: Compared to the previous examination, there is now marked abdominal and pelvic ascites. Liver: The liver is again enlarged with fatty infiltration evidence for cirrhosis.. Spleen: There is again evidence for splenomegaly as well. Pancreas: The pancreas is homogeneous in attenuation on these limited noncontras t images. Gall Bladder: The gallbladder is distended with evidence for sludge versus small stones again seen. Adrenal glands: The adrenal glands are normal in size and attenuation on these limited noncontrast images. Kidneys: The kidneys are homogeneous in attenuation on these limited noncontrast images. There is no evidence for gross renal mass, calculus or hydronephrosis bilaterally. Bowel: The bowel loops are normally placed within the abdomen and pelvis without evidence for dilatation or obstruction. There is no evidence for mass lesion. There are no inflammatory changes present. There is no evidence for free air. The appendix is not visualized. Bladder: There is no evidence for focal bladder wall thickening, calculus or diverticulum. : There is no evidence for pelvic mass or adenopathy. Vasculature: There is no evidence for focal aneurysmal dilatation of the abdominal aorta. Osseous structures: There is no acute osseous pathology. IMPRESSION: 1. Compared to previous examination, there is now marked abdominal and pelvic ascites which has increased since the previous study. 2. There is again hepatosplenomegaly with evidence for fatty infiltration of the liver and probable cirrhosis. 3. Sludge versus small stones within the gallbladder is again seen. 4. No evidence for bowel loop dilatation or obstruction. 5. Additional nonacute findings are delineated above. ACT 112: Negative or not required by law. Electronically signed by: Sukumar Garcia M.D. 11/17/2021 6:[address] 11/17/21 17:49 CT head/brain wo con CLINICAL HISTORY: fall 2 days ago, headstrike, nausea COMPARISON STUDY: No previous studies for comparison. CT DOSE: TECHNIQUE: Standard CT of the Brain was performed without IV contrast. A dose lowering technique was utilized adhering to the principles of ALARA. FINDINGS: Extraaxial space: There is no evidence for subdural hematoma. There are no extra-axial fluid collections. Ventricles and cisterns: The ventricles are normal in size and configuration. There is no evidence for midline shift or mass effect. Parenchyma: There is no subarachnoid or intraparenchymal hemorrhage. There is no evidence for an acute infarct or cerebral edema. There is homogeneous attenuation of the brain parenchyma. There are no gross mass lesions. Osseous structures: There is no evidence for an acute fracture. The visualized paranasal sinuses are clear. The mastoid air cells are clear bilaterally. Soft tissues: There is no evidence for focal soft tissue swelling. IMPRESSION: No acute intracerebral pathology. ACT 112: Negative or not required by law. Electronically signed by: Sukumar Garcia M.D. 11/17/2021 6:29 PM Supervising Physician Co-Signing Physician Notes IM ATTENDING : Patient seen and examined. History obtained from patient and records. Preceding documentation by Ms. Angela Galindo PA-C reviewed. FINAL ASSESSMENT AND PLAN as follows : Hypotension Multifactorial : 1. severe sepsis SIRS plus lactic acidosis (Immunocompromised patient (history RPGN/atypical anti-GBM disease) on Prednisone regimen on Bactrim for PJP prophylaxis) Possible sources include SBP (hx cirrhosis of unclear etiology, HCV Ab positive/HCV RNA negative), C. difficile given diarrhea symptoms, catheter related bloodstream infection (hx ESRD on HD) 2. L GIB In the setting of Eliquis intake for hx left IJ catheter thrombus Hemoglobin drop from baseline Rule out C. difficile 3. 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 difficile Ceftriaxone, IV albumin for possible SBP, dx/tx paracentesis Daptomycin to cover for MRSA catheter related infections given immunocompromised state Flagyl 1 dose for now given possible C. difficile given sepsis criteria, Dificid course if C. difficile positive Appropriate to hold Eliquis for now, transfuse PRBC to maintain hemoglobin above 8 and or for symptomatic anemia Hold home BP meds for now. Decadron 1 dose now for hypotension, possible adrenal insufficiency Continue daily prednisone Recheck lactic acid after IV albumin GI consult Re: Ascites Nephrology consult Re: Dialysis management DVT prophylaxis. SCDs while Eliquis on hold Full code Text document was generated using [employer] voice recognition software. It may contain grammatical or spelling errors. Kindly contact undersigned for clarification of any documentation item in question. (1) Anemia Anemia type: unspecified type Qualified Code(s): D64.9 - Anemia, unspecified
[2021-11-17] MEDS: POTASSIUM CHLORIDE / WTR 10 MEQ/100 ML PLCT IV SCH (20:16)
[2021-11-17 20:17] LABS: Transferrin < 95 mg/dl (200-360)
[2021-11-17] MEDS: MAGNESIUM SULFATE / D5W 1 GM/100 ML BAG IV SCH ×2 (20:17→22:07)
[2021-11-17] MEDS ORDERED: OSELTAMIVIR PHOSPHATE SUSP 30 MG/5 ML UDP PO STA (20:18)
[2021-11-17] MEDS ORDERED: metroNIDAZOLE 500 MG TAB PO STA (20:50)
[2021-11-17 21:37] LABS: Hematocrit (blood only) 16.7 % (37-47); Hemoglobin 5.5 g/dL (12.0-16.0)
[2021-11-17] MEDS ORDERED: SODIUM CHLORIDE 0.9% 250 ML IV PRN (21:39)
[2021-11-17] MEDS ORDERED: ALBUMIN 25% 100 mL 25 GM/100 ML VIAL IV STA (22:10)
[2021-11-17] MEDS ORDERED: PROMETHAZINE HCL 12.5 MG in SODIUM CHLORIDE 0.9% 50 ML IV PRN (22:28)
[2021-11-17] MEDS: LORazepam 0.5 MG TAB PO PRN (23:49)
[2021-11-18] MEDS: POTASSIUM CHLORIDE / WTR 10 MEQ/100 ML PLCT IV SCH (00:43)
[2021-11-18] MEDS ORDERED: DAPTOmycin 325 MG in SYRINGE 0 ML IV SCH (02:00)
[2021-11-18] MEDS: ALBUMIN 25% 12.5 GM/50 ML VIAL IV SCH ×3 (03:27→12:33)
[2021-11-18] MEDS ORDERED: dexAMETHasone 4 MG in SYRINGE 0 ML IV ONE (04:30)
[2021-11-18 07:05] LABS: Hematocrit (blood only) 22.7 % (37-47); Hemoglobin 7.6 g/dL (12.0-16.0); Mean Corpuscular Hemoglobin 33.6 pg (25-34); Mean Corpuscular Hgb Conc 33.5 g/dL (32-36); Mean Corpuscular Volume 100.4 fL (80-100); Mean Platelet Volume 10.9 fL (7.4-10.4); Nucleated RBC # (auto) 0.04 K/uL (0-0); Nucleated RBC % (auto) 0.4 %; Platelet Count 63 K/uL (130-400); Red Blood Count 2.26 M/uL (4.2-5.4); White Blood Count 11.78 K/uL (4.8-10.8)
[2021-11-18 07:38] LABS: Anisocytosis Present; Basophils # (auto) 0.01 K/uL (0-0.2); Basophils % (auto) 0.1 %; Immature Granulocytes # (auto) 0.03 K/uL (0.00-0.02); Immature Granulocytes % (auto) 0.3 %; Lymphocytes # (auto) 0.43 K/uL (1.2-3.4); Lymphocytes % (auto) 3.7 %; Monocytes # (auto) 0.35 K/uL (0.11-0.59); Neutrophils # (auto) 10.96 K/uL (1.4-6.5); Neutrophils % (auto) 92.9 %; Target Cells 1+
[2021-11-18 07:58] LABS: Albumin Level 2.7 gm/dl (3.4-5.0); BUN Creatinine Ratio 2.7 (10-20); Bilirubin,Total 6.2 mg/dl (0.2-1.0); Calcium 7.4 mg/dl (8.5-10.1); Creatinine Clr Calc Pharmacy 17.9 ml/min; Est GFR (African American) 15.2 ml/min; Est GFR (Non-African American) 13.1 ml/min; Globulin 2.6 gm/dl (2.5-4.0); Phosphorus 3.2 mg/dl (2.5-4.9); Potassium 3.7 mmol/L (3.5-5.1); Total Protein 5.3 gm/dl (6.0-8.3)
[2021-11-18] MEDS ORDERED: SEVELAMER HCL 800 MG TABLET PO SCH (08:00)
[2021-11-18] MEDS: LORazepam 0.5 MG TAB PO PRN ×3 (08:10→20:44)
[2021-11-18] MEDS: predniSONE 5 MG TAB PO SCH (08:11)
[2021-11-18] MEDS: FOLIC ACID 1 MG TAB PO SCH ×2 (08:11→20:44)
[2021-11-18] MEDS: PANTOprazole 40 MG TAB PO SCH (08:11)
[2021-11-18] MEDS: buprenorphine HCL 8 MG SUBL SL SCH (08:13)
[2021-11-18] MEDS ORDERED: predniSONE 5 MG TAB PO SCH (09:00)
--- NOTE | 2021-11-18 09:30 | Electrocardiogram Report ---
Test Reason : Blood Pressure : / mmHG Vent. Rate : 117 BPM Atrial Rate : 117 BPM P-R Int : 136 ms QRS Dur : 074 ms QT Int : 358 ms P-R-T Axes : 063 037 083 degrees QTc Int : 499 ms Sinus tachycardia Nonspecific T wave abnormality Abnormal ECG When compared with ECG of 11-OCT-2021 19:18, Nonspecific T wave abnormality now evident in Anterolateral leads Confirmed by Eitan Funk ([id number]) on 11/18/2021 9:30:33 AM Referred By: REFERRED SELF Confirmed By:Eitan Funk
--- NOTE | 2021-11-18 10:06 | Nephrology Consultation ---
Date of Consultation November 18, 2021 Assessment & Plan (1) ESRD on hemodialysis: Patient with ESRD on dialysis Saturday. She had dialysis yesterday outpatient. She however missed dialysis on Saturday and Saturday. Electrolytes stable. No indication for dialysis today. -We will plan for dialysis on Saturday unless clinical status changes (2) Anemia: Patient with anemia of multifactorial etiology including chronic renal disease and GI bleed. She received 2 units of blood. She will likely need upper GI endoscopy. -We will give Epogen with dialysis on Saturday (3) Cirrhosis of liver: Patient with decompensated cirrhosis complicated by ascites and likely varices. She will need paracentesis and awaiting GI for possible GI endoscopy History of Present Illness Reason for Consultation: ESRD Requesting Physician: Zulema Contreras DO Attending Physician: Zulema Contreras DO History of Present Illness Patient 41-year-old female with history of ESRD due to acute glomerulonephritis on dialysis Saturday, hepatitis C, liver cirrhosis of unclear etiology, left IJ thrombus on Eliquis who was admitted on 11/17/2021 with melena stools for 2 weeks found to have hemoglobin of 5.5. She received 2 units of blood and hemoglobin is up to 7.6. Her last dialysis was Saturday but she missed dialysis Saturday and Saturday due to diarrhea. She has shortness of breath but denies any cough. She was found to be positive for influenza A. She complains of abdominal distention but no leg swelling. Her blood pressure is on the lower side. Her bilirubin is 6. 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 She is also on Bactrim for PCP prophylaxis. Allergies Allergy/AdvReac Type Severity Reaction Status Date / Time green pepper Allergy Severe Anaphylaxis Verified 11/17/21 19:41 mushroom Allergy Severe ANAPHYLAXIS Verified 11/17/21 19:41 onion Allergy Severe ANAPHYLAXIS Verified 11/17/21 19:41 fentanyl Allergy Intermediate Red, Hot, Unverified 11/17/21 19:41 Itchy Skin tramadol Allergy Mild RASH AND Verified 11/17/21 19:41 ITCHING ketorolac Allergy Unknown RASH Verified 11/17/21 19:41 Home Medications Medication Instructions Recorded Confirmed Type folic acid 1 mg tablet 1 mg PO BID 07/30/20 11/17/21 History buprenorphine HCl 8 mg sublingual 8 mg SUBLINGUAL DAILY 08/25/21 11/17/21 History tablet omeprazole 20 mg capsule,delayed 20 mg PO QAM 08/25/21 11/17/21 History release sevelamer carbonate 800 mg tablet 800 mg PO TIDM 08/25/21 11/17/21 History sulfamethoxazole 800 1 tab PO 3XWK 08/25/21 11/17/21 History mg-trimethoprim 160 mg tablet magnesium oxide 400 mg (241.3 mg 400 mg PO QAM 09/19/21 11/17/21 History magnesium) tablet prednisone 5 mg tablet 5 mg PO QAM 09/19/21 11/17/21 History lorazepam 0.5 mg tablet 0.5 mg PO TID PRN 10/11/21 11/17/21 History apixaban 2.5 mg tablet (Eliquis) 2.5 mg PO BID 11/17/21 11/17/21 History metoprolol succinate 25 mg 25 mg PO QAM 11/17/21 11/17/21 History tablet,extended release 24 hr Patient History Medical History Anemia Ascites Bacteremia due to Gram-positive bacteria Chronic deep vein thrombosis (DVT) of internal jugular vein Chronic respiratory failure with hypoxia Cirrhosis Cold agglutinin disease ESRD on dialysis Folate deficiency Heart failure with preserved ejection fraction Iron deficiency anemia Pleural effusion on left Pleural effusion on right Proteinuria RPGN (rapidly progressive glomerulonephritis) Smoker Surgical History History of bronchoscopy Hx of cardiac cath 08/15/2020: Right and left heart cath at [facility] [place] Family History Mother Lupus (systemic lupus erythematosus) Social History Smoking Status: Former smoker Tobacco Type: Cigarettes Cigarettes Per Day: 3; Hx Alcohol Use: No Hx Substance Use: No Preferred Language: Amharic Communication Ability: Effective [employer] Required: No Beliefs That Will Affect Care: None marital status: engaged Current Living Situation: Family Current Living Situation Comment: fiancee and 2 kids How many Children do You have: 2 Other Information That Helps Us Care for You: No Feels Safe at Home: Yes Safety Concerns: Feels Safe At This Time Assistive Devices: Oxygen - Continuous Review of Systems Review of Systems: All other systems were reviewed and negative except as noted in HPI Physical Exam Physical Exam: General exam: Appears comfortable, no acute distress HEENT: Pupils are equal and reactive to light Neck: No JVD, neck is supple trachea is midline Respiratory system: Clear breath sounds bilaterally. Gastrointestinal: Abdomen is soft, moderately distended, very tender, bowel sounds are present CVS: Regular rate and rhythm. No murmurs, rubs or gallops Musculoskeletal: No joint or muscle tenderness Extremities: Non tender, no edema, peripheral pulses are present Neuro: Oriented, no tremors, no focal neurological deficits Skin: No rashes Results & Data ([facility]) Vital Signs (Past 12 Hours) Vital Signs Temp Pulse Pulse Resp BP BP Pulse Ox 11/18/21 05:10 36.4 C L 80 21 86/57 L 97 11/18/21 04:17 36.4 C L 82 19 82/51 L 97 11/18/21 03:17 36.4 C L 84 17 80/52 L 98 11/18/21 02:47 36.5 C 82 20 80/49 L 97 11/18/21 02:32 36.5 C 85 17 81/51 L 99 11/18/21 02:17 36.6 C 85 14 80/50 L 98 11/18/21 02:08 36.6 C 85 14 80/50 L 98 11/18/21 01:14 36.5 C 99 H 16 79/59 L 99 11/18/21 00:14 36.8 C 89 16 81/49 L 96 11/18/21 00:00 87 11/17/21 23:44 36.8 C 95 H 18 76/53 L 98 11/17/21 23:29 36.8 C 94 H 18 82/49 L 98 11/17/21 23:03 37.2 C 100 H 18 80/60 L 97 11/17/21 22:32 37.2 C 100 H 18 80/60 L 97 Laboratory Results 11/17/21 11/17/21 11/17/21 16:27 16:27 17:32 WBC 30.16 H* RBC 2.25 L MCV 105.8 H MCH 34.2 H MCHC 32.4 RDW Std Deviation 78.3 H RDW Coeff of Christine 20.5 H Plt Count 120 L MPV 12.5 H Phosphorus 1.7 L Albumin 2.5 L 2.3 L 11/18/21 11/18/21 06:51 06:51 WBC 11.78 H D RBC 2.26 L MCV 100.4 H D MCH 33.6 MCHC 33.5 RDW Std Deviation 72.0 H RDW Coeff of Christine 21.0 H Plt Count 63 L MPV 10.9 H Phosphorus 3.2 D Albumin 2.7 L (1) Anemia Anemia type: unspecified type Qualified Code(s): D64.9 - Anemia, unspecified (2) Cirrhosis of liver Ascites presence: with ascites Hepatic cirrhosis type: unspecified hepatic cirrhosis Qualified Code(s): K74.60 - Unspecified cirrhosis of liver; R18.8 - Other ascites
--- NOTE | 2021-11-18 10:56 | Gastrointestinal Consultation ---
Date of Consultation November 18, 2021 Assessment & Plan (1) Cirrhosis of liver: (2) Diarrhea: (3) Elevated LFTs: 1. Liver disease: She has abdominal pain with ascites, certainly SBP could be a consideration, she is on antibiotics with Cipro Flagyl and is clinically improved unlikely to benefit from a diagnostic tap given this time. I will defer to nephrology to see if indications of albumin would be indicated. In general to prevent HRS, 1.5 mg/kg on day 1 and 1 mg/kg on day 3 given that she has CKD obviously that would not be indicated certainly reasonable to administer albumin if concern of hypovolemia otherwise there is no signs of GI bleeding, mental status is intact LFTs note a very high total bilirubin with an inability to fractionate due to direct due to hemolysis. No evidence of biliary obstruction on imaging, however the gallbladder is distended, given pain, need to consider cholecystitis as a nidus of infection 2. Diarrhea: Given diarrhea, anemia, thrombocytopenia pneumolysis, infection with E. coli and HUS needs to be considered. She is fortunately not having any further diarrhea. Stool studies have been ordered but not collected yet given lack of diarrhea C. difficile as well as routine cultures need to be considered 3. No signs of GI bleeding if concerned can hold Eliquis 4. Likely occult infection unclear etiology being identified right now with options being SBP, cholecystitis, bacteremia, obvious infection with influenza A, diarrheal illness such as C. difficile enteric organisms. Continue supportive care call with questions History of Present Illness Reason for Consultation: Cirrhosis and diarrhea Attending Physician: Zulema Contreras, History of Present Illness Ms. Elaine Guzman is a 41 yr old female pt of Dr. Siegel/Nicolette Deleon PA-C with an extensive PMH including chronic hypoxic respiratory failure on 3 L of oxygen, chronic right-sided CHF, ESRD on dialysis, cold agglutinin disease, HCV cirrhosis with ascites, left IJ TDC thrombus anticoagulated on Eliquis who presents after referral from dialysis for diarrhea. She states that for the last week she has had constant diarrhea, this has been green and brownish in nature no blood including black stools has been noted she has not been able to undergo dialysis for the last several days. She has associated symptoms of weakness, right-sided abdominal pain, upon presentation she was found to have influenza A positivity. She had no further diarrhea and this is unknown like previous admissions at which time she has had concerns of melena and underwent a upper endoscopy 2 months ago with mild portal hypertensive gastropathy but no other complicating features of chronic liver disease. Her diarrhea is noted to be watery, occurring up to 10-20 times a day, including nocturnal components. Upon presentation she was noted to be tachycardic with her normal low blood pressures however she had a white blood cell count 30,000, total bilirubin of 6.2 with normal alkaline phosphatase as well as an AST of 48 and ALT of 11. CT scan of the abdomen showed no inflammatory findings of the GI tract, there was sludge versus small stones in the gallbladder, no evidence for obstruction. There was increased amount of ascites. Overnight she has been given volume of blood products, IV fluids, and antibiotics with Cipro Flagyl she is dramatically improved. She is able to have a conversation today and states that she does feel better other than continuing to feel weak because of lack of sleep and generalized health. Allergies Allergy/AdvReac Type Severity Reaction Status Date / Time green pepper Allergy Severe Anaphylaxis Verified 11/17/21 19:41 mushroom Allergy Severe ANAPHYLAXIS Verified 11/17/21 19:41 onion Allergy Severe ANAPHYLAXIS Verified 11/17/21 19:41 fentanyl Allergy Intermediate Red, Hot, Unverified 11/17/21 19:41 Itchy Skin tramadol Allergy Mild RASH AND Verified 11/17/21 19:41 ITCHING ketorolac Allergy Unknown RASH Verified 11/17/21 19:41 Home Medications Medication Instructions Recorded Confirmed Type folic acid 1 mg tablet 1 mg PO BID 07/30/20 11/17/21 History buprenorphine HCl 8 mg sublingual 8 mg SUBLINGUAL DAILY 08/25/21 11/17/21 History tablet omeprazole 20 mg capsule,delayed 20 mg PO QAM 08/25/21 11/17/21 History release sevelamer carbonate 800 mg tablet 800 mg PO TIDM 08/25/21 11/17/21 History sulfamethoxazole 800 1 tab PO 3XWK 08/25/21 11/17/21 History mg-trimethoprim 160 mg tablet magnesium oxide 400 mg (241.3 mg 400 mg PO QAM 09/19/21 11/17/21 History magnesium) tablet prednisone 5 mg tablet 5 mg PO QAM 09/19/21 11/17/21 History lorazepam 0.5 mg tablet 0.5 mg PO TID PRN 10/11/21 11/17/21 History apixaban 2.5 mg tablet (Eliquis) 2.5 mg PO BID 11/17/21 11/17/21 History metoprolol succinate 25 mg 25 mg PO QAM 11/17/21 11/17/21 History tablet,extended release 24 hr Patient History Medical History Anemia Ascites Bacteremia due to Gram-positive bacteria Chronic deep vein thrombosis (DVT) of internal jugular vein Chronic respiratory failure with hypoxia Cirrhosis Cold agglutinin disease ESRD on dialysis Folate deficiency Heart failure with preserved ejection fraction Iron deficiency anemia Pleural effusion on left Pleural effusion on right Proteinuria RPGN (rapidly progressive glomerulonephritis) Smoker Surgical History History of bronchoscopy Hx of cardiac cath 08/15/2020: Right and left heart cath at [facility] [place] Family History Mother Lupus (systemic lupus erythematosus) Social History Smoking Status: Former smoker Tobacco Type: Cigarettes Cigarettes Per Day: 3; Hx Alcohol Use: No Hx Substance Use: No Preferred Language: Mauritian Communication Ability: Effective [employer] Required: No Beliefs That Will Affect Care: None marital status: engaged Current Living Situation: Family Current Living Situation Comment: fiancee and 2 kids How many Children do You have: 2 Other Information That Helps Us Care for You: No Feels Safe at Home: Yes Safety Concerns: Feels Safe At This Time Assistive Devices: Oxygen - Continuous Review of Systems Review of Systems: 10 system review negative except for stated as above Physical Exam Physical Exam: Chronically ill-appearing, conversant, neurologically intact, no asterixis, heart is regular without murmur, abdomen is mildly distended painful to palpation in the right lower quadrant, shifting dullness, striae on abdomen, lungs are diminished bilateral bases Results & Data ([facility]) Vital Signs (Past 12 Hours) Vital Signs Temp Pulse Pulse Resp BP BP Pulse Ox 11/18/21 05:10 36.4 C L 80 21 86/57 L 97 11/18/21 04:17 36.4 C L 82 19 82/51 L 97 11/18/21 03:17 36.4 C L 84 17 80/52 L 98 11/18/21 02:47 36.5 C 82 20 80/49 L 97 11/18/21 02:32 36.5 C 85 17 81/51 L 99 11/18/21 02:17 36.6 C 85 14 80/50 L 98 11/18/21 02:08 36.6 C 85 14 80/50 L 98 11/18/21 01:14 36.5 C 99 H 16 79/59 L 99 11/18/21 00:14 36.8 C 89 16 81/49 L 96 11/18/21 00:00 87 11/17/21 23:44 36.8 C 95 H 18 76/53 L 98 11/17/21 23:29 36.8 C 94 H 18 82/49 L 98 11/17/21 23:03 37.2 C 100 H 18 80/60 L 97 11/17/21 22:32 37.2 C 100 H 18 80/60 L 97 Laboratory Results Sore stated as above, white count is fallen to 11 hemoglobin is up to 7.6 after transfusion Noted hemolysis on lab Platelets have diminished rapidly (1) Cirrhosis of liver Ascites presence: with ascites Hepatic cirrhosis type: unspecified hepatic cirrhosis Qualified Code(s): K74.60 - Unspecified cirrhosis of liver; R18.8 - Other ascites
[2021-11-18 12:05] LABS: Hemoglobin 7.8 g/dL (12.0-16.0)
[2021-11-18] MEDS: cefTRIAXone SODIUM 2,000 MG in DEXTROSE 5% 50 ML IV SCH (15:17)
--- NOTE | 2021-11-18 15:27 | Hospitalist Progress Note ---
Date of Service November 18, 2021 Assessment & Plan (1) Cirrhosis of liver: Plan: Decompensated with development of ascites over the past two weeks. Worsening pain with distension and she is very uncomfortable. Recent flu, however, she currently doesn't have symptoms. No fever but with elevated WBC on admission, she is concerning for SBP. Arrange for paracentesis today for diagnostic and therapeutic purposes. Already on broad spectrum antibiotics and albumin given (lower than data in studies to avoid fluid overload in this dialysis patient). WBC improved from 30K to 12K today with treatment. Cont antibiotics. After this presumed infection, would consider diuretic therapy regularly (furosemide/spironolactone) to help avoid ascites buildup moving forward. Would need to be cleared by nephrology prior to starting this, however. (2) Diarrhea: Plan: No diarrhea since admission. Rule out infectious cause with stool studies if able to collect. She is now tolerating a regular (renal) diet and has a good appetite. Suspect some dehydration from recent diarrhea and she is hypotensive. Therefore, ordered 5% albumin for more volume post-paracentesis this evening. Cont to monitor. (3) Anemia: Plan: Uncertain etiology. Similar presentation last year but she had melena at that time and was taking eliquis and coumadin simultaneously. No hematochezia at this time. Appropriate increase in H/H with blood transfusion and hemodynamically stable. Endoscopy last year on 08/2021 revealed esophageal plaques concerning for candidiasis and gastritis. No indication for endoscopy per GI at this time. Eliquis remains on hold for the time being. Will add back once stable H/H demonstrated. (4) Influenza A: Plan: recent history of this with course of Tamiflu as outpatient. Not symptomatic at this time. As she tested positive, will cont isolation in the hospital for now. (5) ESRD on hemodialysis: Plan: HD session prior to admission on Saturday, but missed two treatments prior to that. Nephro following and feels no indication for acute dialysis today. Will resume normal treatments again on Saturday. Planned to give Epogen on Saturday. (6) Hypokalemia: Plan: 2.7 yesterday, possibly related to recent diarrhea, now repleted. Trend lytes in am. (7) Hypophosphatemia: Plan: Repleted, patient not eating well. Diet changed to regular (renal) (8) Chronic respiratory failure with hypoxia: Plan: Typically on 3LPM via NC at baseline. Will get PT and OT to evaluate her prior to discharge after she is more comfortable post-paracentesis. (9) Chronic deep vein thrombosis (DVT) of internal jugular vein: Plan: Holding eliquis at this time. Will restart as soon as H/H is stable. (10) Heart failure with preserved ejection fraction: Plan: chronic, stable. Appears dry from dehydration and hypotensive with ascites. Cont metoprolol, not on diuretics as outpatient. (11) DVT prophylaxis: Plan: SCDs/chemoprophylaxis contraindicated in setting of anemia with possible bleeding. Full code Dispo-cont PCU [facility] Admission and Anticipated Discharge Date Admission Date: November 17, 2021 Subjective 41 yo F presents with worsening pain and abdominal swelling 2/2 ascites. Reports pain, fatigue and malaise Tolerating PO and eating turkey sandwiches. Afebrile no respiratory symptoms-treated for flu previously does report feeling short of breath and having discomfort from the fluid in her abdomen pushing up on her diaphragm weakness on oxygen at home typically. sister was at bedside and all questions were answered Review of Systems Review of Systems: All systems were reviewed and negative except as indicated in HPI above. Physical Exam Physical Exam: CONSTITUTIONAL: WNWD, vitals as above, generally well- appearing EYES: normal conjunctivae, no scleral icterus ENT: external ear and nose normal, oropharynx clear, poor dentition. NECK: trachea midline RESPIRATORY: clear to auscultation bilaterally, no crackles, rales or wheezes, normal respiratory effort CARDIOVASCULAR: regular rate and rhythm, S1 and 2 heard without murmurs, gallops or rubs, no JVD, no peripheral edema CHEST: inspection of chest was normal GASTROINTESTINAL: soft, nontender, protuberant, positive fluid wave, stretch walker on skin, no guarding MUSCULOSKELETAL: strength 5/5 throughout, head is normocephalic and atraumatic SKIN: warm and dry NEUROLOGIC: CN 2-12 grossly intact, no sensory deficit, normal cognition, normal speech. No gross focal deficit. PSYCHIATRIC: alert cooperative and oriented to person, place and time. Results & Data Results & Data ([facility]) Vital Signs (Past 12 Hours) Vital Signs Temp Pulse Pulse Resp BP BP Pulse Ox 11/18/21 12:00 36.8 C 77 18 88/56 L 94 11/18/21 10:03 37 C 76 18 87/60 L 97 11/18/21 08:00 77 11/18/21 05:10 36.4 C L 80 21 86/57 L 97 11/18/21 04:17 36.4 C L 82 19 82/51 L 97 Laboratory Results Short CBC 11/17/21 11/17/21 11/18/21 Range/Units 16:27 21:19 06:51 WBC 30.16 H* 11.78 H D (4.8-10.8) K/uL Hgb 7.7 L 5.5 L* 7.6 L (12.0-16.0) g/dL Hct 23.8 L 16.7 L* 22.7 L (37-47) % Plt Count 120 L 63 L (130-400) K/uL 11/18/21 Range/Units 11:52 WBC (4.8-10.8) K/uL Hgb 7.8 L (12.0-16.0) g/dL Hct 24.0 L (37-47) % Plt Count (130-400) K/uL BMP 11/17/21 11/17/21 11/18/21 16:27 17:32 06:51 Sodium 135 L 135 L 131 L Potassium 2.7 L 3.7 D Chloride 102 102 101 Carbon Dioxide 18 L 21 21 BUN 9 9 11 Creatinine 3.18 H 3.25 H 4.03 H D Glucose 59 L 68 L 182 H Calcium 8.5 8.1 L 7.4 L Cardiac Enzymes 11/17/21 Range/Units 16:27 Troponin I < 0.03 (0-0.04) ng/ml Liver Function 11/17/21 11/17/21 11/18/21 Range/Units 16:27 17:32 06:51 Total Bilirubin 6.4 H 6.4 H 6.2 H (0.2-1.0) mg/dl Direct Bilirubin (0-0.2) mg/dl AST 48 H 30 (13-39) U/L ALT 16 11 9 (7-52) U/L Alkaline Phosphatase 113 H 78 (34-104) U/L Albumin 2.5 L 2.3 L 2.7 L (3.4-5.0) gm/dl Medications Administered Current Inpatient Medications Acetaminophen (Acetaminophen 325 Mg Tab) 325 mg PO Q6H PRN PRN Reason: Mild Pain Stop: 12/17/21 22:27 Buprenorphine HCl (Buprenorphine Hcl 8 Mg Subl) 8 mg SL DAILY [facility] Stop: 12/18/21 08:59 Last Admin: 11/18/21 08:13 Dose: 8 mg Documented by: Folic Acid (Folic Acid 1 Mg Tab) 1 mg PO BID [facility] Stop: 12/18/21 08:59 Last Admin: 11/18/21 08:11 Dose: 1 mg Documented by: Albumin Human (Albumin 25%) 12.5 gm in 50 mls @ 50 mls/hr IV Q6H [facility] Stop: 11/21/21 00:59 Last Infusion: 11/18/21 14:07 Dose: Infused Documented by: Daptomycin 325 mg/ Syringe 6.5 mls @ 3.25 mls/min IV Q48H [facility]; Protocol Stop: 11/20/21 01:59 Last Admin: 11/18/21 03:27 Dose: 3.25 mls/min Documented by: Ceftriaxone Sodium 2,000 mg/ (Dextrose) 70 mls @ 140 mls/hr IV Q24H [facility]; Protocol Stop: 11/28/21 13:59 Last Admin: 11/18/21 15:17 Dose: 140 mls/hr Documented by: Lorazepam (Lorazepam 0.5 Mg Tab) 0.5 mg PO TID PRN PRN Reason: Anxiety Stop: 12/17/21 22:27 Last Admin: 11/18/21 08:10 Dose: 0.5 mg Documented by: Miscellaneous Information (Daptomycin Consult Active) 1 ea N/A UD PRN PRN Reason: Consult Stop: 12/18/21 01:18 Pantoprazole Sodium (Pantoprazole 40 Mg Tab) [facility] Stop: 12/18/21 08:59 Last Admin: 11/18/21 08:11 Dose: 40 mg Documented by: Prednisone (Prednisone 5 Mg Tab) 5 mg PO QAM [facility] Stop: 12/19/21 08:59 Last Admin: 11/18/21 08:11 Dose: 5 mg Documented by: Trimethoprim/Sulfamethoxazole (Sulfamethoxazole/Trimethoprim Ds 800/160mg Tab) 1 tab PO MoWeFr ALLY Stop: 12/20/21 08:59 (1) Anemia Anemia type: unspecified type Qualified Code(s): D64.9 - Anemia, unspecified (2) Cirrhosis of liver Ascites presence: with ascites Hepatic cirrhosis type: unspecified hepatic cirrhosis Qualified Code(s): K74.60 - Unspecified cirrhosis of liver; R18.8 - Other ascites
--- NOTE | 2021-11-18 18:12 | Ultrasound Report ---
ULTRASOUND GUIDED DIAGNOSTIC AND THERAPEUTIC PARACENTESIS CLINICAL HISTORY: paracentesis COMPARISON STUDY: CT of the abdomen and pelvis November 17, 2021. PROCEDURE: The risks, benefits, and alternatives to the procedure were discussed with the patient inc luding the risk of bleeding, infection and injury to adjacent structures. The patient agreed to the procedure and informed written consent was obtained. Following real-time ultrasound localization, the skin of the right lower quadrant was prepped and draped. Following local anesthesia with Xylocaine, the sheath paracentesis needle was inserted and approximately 5 liters of straw-colored fluid was rem reji by vacuum suction. The patient tolerated the procedure well and no immediate complications were evident. IMPRESSION: Ultrasound-guided paracentesis with removal of 5 liters of ascites. 1 L of ascites was s ent to the laboratory for analysis as ordered. ACT 112: Negative or not required by law. Electronically signed by: Vitor Rodriguez M.D. 11/18/2021 6:11 PM
[2021-11-18] MEDS ORDERED: ALBUMIN 5% 250 ML IV ONE (18:15)
[2021-11-18 18:52] LABS: Albumin Peritoneal Fluid < 0.6 g/dl; Total Protein Peritoneal Fluid 1.3 g/dl
[2021-11-18 19:16] LABS: Appearance Peritoneal Fluid CLEAR; Basophils, Fluid 0 %; Color Peritoneal Fluid YELLOW; Eosinophils, Fluid 0 %; Lymphocytes, Fluid 9 %; Mono,Macrophage,Mesothelial 42 %; Neutrophils, Fluid 49 %; RBC Peritoneal Fluid (A) < 3000 /uL; WBC Peritoneal Fluid (A) 48 /ul (0-300)
[2021-11-18] MEDS ORDERED: cefTRIAXone SODIUM 1,000 MG in DEXTROSE 5% 50 ML IV SCH (20:00)
[2021-11-19 05:19] LABS: Hematocrit (blood only) 22.8 % (37-47); Hemoglobin 7.4 g/dL (12.0-16.0); Mean Corpuscular Hemoglobin 32.7 pg (25-34); Mean Corpuscular Hgb Conc 32.5 g/dL (32-36); Mean Corpuscular Volume 100.9 fL (80-100); Nucleated RBC # (auto) 0.04 K/uL (0-0); Nucleated RBC % (auto) 0.3 %; RDW Coefficient of Variation 21.2 % (11.5-14.5); RDW Standard Deviation 75.3 fL (36.4-46.3); Red Blood Count 2.26 M/uL (4.2-5.4); White Blood Count 15.81 K/uL (4.8-10.8)
[2021-11-19 05:47] LABS: Albumin Level 2.6 gm/dl (3.4-5.0); BUN Creatinine Ratio 3.3 (10-20); Bilirubin,Total 3.4 mg/dl (0.2-1.0); Calcium 7.5 mg/dl (8.5-10.1); Creatinine Clr Calc Pharmacy 13.7 ml/min; Est GFR (African American) 11.3 ml/min; Est GFR (Non-African American) 9.7 ml/min; Globulin 2.6 gm/dl (2.5-4.0); Potassium 3.5 mmol/L (3.5-5.1); Total Protein 5.2 gm/dl (6.0-8.3)
[2021-11-19 06:26] LABS: Mean Platelet Volume 11.8 fL (7.4-10.4); Platelet Count 88 K/uL (130-400)
[2021-11-19 06:27] LABS: Anisocytosis Present; Basophils # (auto) 0.01 K/uL (0-0.2); Basophils % (auto) 0.1 %; Echinocytes 1+; Immature Granulocytes # (auto) 0.03 K/uL (0.00-0.02); Immature Granulocytes % (auto) 0.2 %; Lymphocytes % (auto) 1.9 %; Monocytes # (auto) 0.77 K/uL (0.11-0.59); Monocytes % (auto) 4.9 %; Neutrophils % (auto) 92.9 %; Pappenheimer Bodies 1+
[2021-11-19] MEDS: LORazepam 0.5 MG TAB PO PRN ×3 (07:57→21:47)
[2021-11-19] MEDS: PANTOprazole 40 MG TAB PO SCH (07:57)
[2021-11-19] MEDS: FOLIC ACID 1 MG TAB PO SCH ×2 (07:57→21:46)
[2021-11-19] MEDS: buprenorphine HCL 8 MG SUBL SL SCH (07:57)
[2021-11-19] MEDS ORDERED: SODIUM CHLORIDE 0.9% 500 ML IV SCH (08:30)
--- NOTE | 2021-11-19 08:44 | Gastroenterology Progress Note ---
Date of Service November 19, 2021 Assessment & Plan (1) Cirrhosis of liver: (2) Diarrhea: (3) Elevated LFTs: Plan: 1. Liver disease/Abdominal pain: She has abdominal pain with ascites, no signs of SBP on paracentesis yesterday. No signs of GI bleeding, mental status is intact LFTs note a very high total bilirubin that has improved from 6 to 3.4 today with an inability to fractionate due to direct due to hemolysis. No evidence of biliary obstruction on imaging, however the gallbladder is distended, given pain, need to consider cholecystitis as a nidus of infection can consider HIDA. Not an overall good surgical candidate. Elevated bilirubin is likely due to either hemolysis or cholestatsis of sepsis in setting of underlying liver disease. 2. Diarrhea: Given diarrhea, anemia, thrombocytopenia pneumolysis, infection with E. coli and HUS needs to be considered. She is fortunately not having any further diarrhea. Stool studies have been ordered but not collected yet given lack of diarrhea C. difficile as well as routine cultures need to be considered 3. No signs of GI bleeding if concerned can hold Eliquis-Hb stable, and hypervolemia given inadequate dialysis is likely contributory. 4. Likely occult infection unclear etiology being identified right now with options being SBP that was tapped after antibiotic initiation cholecystitis, bacteremia, obvious infection with influenza A, diarrheal illness such as C. difficile enteric organisms. Continue supportive care call with questions Admission and Anticipated Discharge Date Admission Date: November 17, 2021 Subjective Feels much better today, walking in the hallways with PT No signs of bleeding or diarrhea Underwent paracentesis yesterday Physical Exam Physical Exam: General exam: Appears comfortable, no acute distress HEENT: Pupils are equal and reactive to light Neck: No JVD, neck is supple trachea is midline Respiratory system: Clear breath sounds bilaterally. Gastrointestinal: Abdomen is soft, moderately distended, minimally tender, bowel sounds are present CVS: Regular rate and rhythm. No murmurs, rubs or gallops Musculoskeletal: No joint or muscle tenderness Extremities: Non tender, no edema, peripheral pulses are present Neuro: Oriented, no tremors, no focal neurological deficits Skin: No rashes Results & Data ([facility]) Vital Signs (Past 12 Hours) Vital Signs Temp Pulse Pulse Resp BP Pulse Ox 11/19/21 03:00 36.5 C 75 23 88/57 L 100 11/19/21 00:00 83 11/18/21 23:30 36.6 C 82 20 88/61 L 97 (1) Cirrhosis of liver Ascites presence: with ascites Hepatic cirrhosis type: unspecified hepatic cirrhosis Qualified Code(s): K74.60 - Unspecified cirrhosis of liver; R18.8 - Other ascites
--- NOTE | 2021-11-19 09:28 | Nephrology Progress Note ---
Date of Service November 19, 2021 Assessment & Plan (1) ESRD on hemodialysis: Plan: Patient with ESRD on dialysis Saturday. She had dialysis yesterday outpatient. She however missed dialysis on Saturday and Saturday. Electrolytes stable. No indication for dialysis today. -We will plan for dialysis on Saturday unless clinical status changes (2) Anemia: Plan: Patient with anemia of multifactorial etiology including chronic renal disease and GI bleed. She received 2 units of blood. I think patient should be off Eliquis going forward. -We will give Epogen with dialysis on Saturday (3) Cirrhosis of liver: Plan: Patient with decompensated cirrhosis complicated by ascites and likely varices. She is status post paracentesis and and fluid cell count was normal. She is on empiric antibiotics. Admission and Anticipated Discharge Date Admission Date: November 17, 2021 Subjective Seen for ESRD. She feels a little better after paracentesis yesterday. No signs of infection on the fluid cell count. Diarrhea has stopped. Hemoglobin is stable off Eliquis Review of Systems Review of Systems: All other systems were reviewed and negative except as noted in HPI Physical Exam Physical Exam: General exam: Appears comfortable, no acute distress HEENT: Pupils are equal and reactive to light Neck: No JVD, neck is supple trachea is midline Respiratory system: Clear breath sounds bilaterally. Gastrointestinal: Abdomen is soft, moderately distended, very tender, bowel sounds are present CVS: Regular rate and rhythm. No murmurs, rubs or gallops Musculoskeletal: No joint or muscle tenderness Extremities: Non tender, no edema, peripheral pulses are present Neuro: Oriented, no tremors, no focal neurological deficits Skin: No rashes Results & Data ([facility]) Vital Signs (Past 12 Hours) Vital Signs Temp Pulse Pulse Resp BP Pulse Ox 11/19/21 08:00 77 11/19/21 07:00 36.6 C 84 22 80/59 L 95 11/19/21 03:00 36.5 C 75 23 88/57 L 100 11/19/21 00:00 83 11/18/21 23:30 36.6 C 82 20 88/61 L 97 Laboratory Results 11/19/21 05:01 11/19/21 11/19/21 05:01 05:01 WBC 15.81 H RBC 2.26 L MCV 100.9 H MCH 32.7 MCHC 32.5 RDW Std Deviation 75.3 H RDW Coeff of Christine 21.2 H Plt Count 88 L MPV 11.8 H Albumin 2.6 L (1) Anemia Anemia type: unspecified type Qualified Code(s): D64.9 - Anemia, unspecified (2) Cirrhosis of liver Ascites presence: with ascites Hepatic cirrhosis type: unspecified hepatic cirrhosis Qualified Code(s): K74.60 - Unspecified cirrhosis of liver; R18.8 - Other ascites
--- NOTE | 2021-11-19 15:02 | Hospitalist Progress Note ---
Date of Service November 19, 2021 Assessment & Plan (1) Cirrhosis of liver: Plan: Decompensated with development of ascites over the past two weeks. Worsening pain with distension and she is very uncomfortable. Recent flu, however, she currently doesn't have symptoms. No fever but with elevated WBC on admission, concerning for SBP. Paracentesis with 5L taken off yesterday (11/18) with subsequent improvement in pain but TTP is still present. Doubt gallbladder p athology, however, small stones were present. No GB inflammation noted on initial CT a/p wo contrast. Leukocytosis is still present. Cont antibiotics and add flagyl for broader anaerobe coverage in the event of gallbladder pathology. Trend serial abdominal exams daily as she does also have pitting edema and bruising on her abdomen in places where she is sore. GI would not recommend diuretics for her although she does still make urine per her report. No spironolactone/furosemide at discharge. (2) Diarrhea: Plan: resolved and BP has improved with improvement in PO intake. Although nutrition unrestricted diet based on thoughts for low K, this patient is passionate about high K foods such as fruits and would cont with renal diet with low sodium. We can add potassium supplementation as needed. (3) Anemia: Plan: Uncertain acute etiology, but chronically this is multifactorial. Similar presentation last year but she had melena at that time and was taking eliquis and coumadin simultaneously. No hematochezia at this time. Neprho recommends to stop Eliquis at this time so will not resume. Appropriate increase in H/H with blood transfusion and hemodynamically stable. Endoscopy last year on 08/2021 revealed esophageal plaques concerning for candidiasis and gastritis. No indication for endoscopy per GI at this time. Cont to trend H/H (4) Influenza A: Plan: recent history of this with course of Tamiflu as outpatient. Not symptomatic at this time. As she tested positive, will cont isolation in the hospital for now. (5) ESRD on hemodialysis: Plan: HD session prior to admission on Saturday, but missed two treatments prior to that. Nephro following and feels no indication for acute dialysis today. Will resume normal treatments again on Saturday. Planned to give Epogen on Saturday. (6) Hypokalemia: Plan: Likely related to recent diarrhea and poor PO intake, resolved. Low K, low Ns diet recommended. (7) Hypophosphatemia: Plan: Repleted, patient not eating well. Will trend in am. Caution with supplements as patient is on a phosphate binder in setting of HD. (8) Chronic respiratory failure with hypoxia: Plan: Typically on 3LPM via NC at baseline. Rehab per PT who saw her today. (9) Chronic deep vein thrombosis (DVT) of internal jugular vein: Plan: Nephrology recommends against Eliquis at this time. Patient should be set up for a more permanent fistula soon. (10) Heart failure with preserved ejection fraction: Plan: chronic, stable. Cont metoprolol, not on diuretics as outpatient. (11) DVT prophylaxis: Plan: SCDs/chemoprophylaxis contraindicated in setting of anemia with possible bleeding. Full code Dispo-cont PCU DO Darcy Dotson Hospitalist Admission and Anticipated Discharge Date Admission Date: November 17, 2021 Subjective 41 yo F presents with worsening pain and abdominal swelling 2/2 ascites. Tolerating PO Denied any abdominal pain until she was examined and then reported severe pain worse in RUQ. She also had pain in lower abdomen, also. Denies diarrhea, no BM Reports persistent fatigue stating that she cannot get sleep overnight. Asks for dialysis session today "to help me feel better" Ambulated with PT today who recommended rehab. Feels better since the paracentesis yesterday. Reviewed case with GI service . Review of Systems Review of Systems: All systems were reviewed and negative except as indicated in subjective above. Physical Exam Physical Exam: CONSTITUTIONAL: WNWD, vitals as above, generally well- appearing EYES: normal conjunctivae, no scleral icterus ENT: external ear and nose normal, oropharynx clear, poor dentition. NECK: trachea midline RESPIRATORY: clear to auscultation bilaterally, no crackles, rales or wheezes, normal respiratory effort CARDIOVASCULAR: regular rate and rhythm, S1 and 2 heard without murmurs, gallops or rubs, no JVD, no peripheral edema CHEST: inspection of chest was normal GASTROINTESTINAL: soft, protuberance has improved, RUQ TTP, LLQ also tender but less so, nondistended, stretch walker on skin, no guarding. Pitting edema on her abdomen. MUSCULOSKELETAL: strength 5/5 throughout, head is normocephalic and atraumatic SKIN: warm and dry NEUROLOGIC: CN 2-12 grossly intact, no sensory deficit, normal cognition, normal speech. No gross focal deficit. PSYCHIATRIC: alert cooperative and oriented to person, place and time. Results & Data Results & Data ([facility]) Vital Signs (Past 12 Hours) Vital Signs Temp Pulse Pulse Resp BP Pulse Ox Pulse Ox 11/19/21 13:12 94 11/19/21 12:00 36.5 C 82 24 96/63 L 96 11/19/21 08:00 77 11/19/21 07:00 36.6 C 84 22 80/59 L 95 11/19/21 03:00 36.5 C 75 23 88/57 L 100 Laboratory Results Short CBC 11/17/21 11/17/21 11/17/21 Range/Units 16:27 16:27 16:27 WBC (4.8-10.8) K/uL RBC 2.25 L (4.2-5.4) M/uL Hgb (12.0-16.0) g/dL Hct (37-47) % MCV 105.8 H (80-100) fL MCH 34.2 H (25-34) pg MCHC 32.4 (32-36) g/dL RDW Std Deviation 78.3 H (36.4-46.3) fL RDW Coeff of Christine 20.5 H (11.5-14.5) % Plt Count (130-400) K/uL MPV 12.5 H (7.4-10.4) fL Immature Gran % (Auto) 0.6 % Neut % (Auto) 95.9 % Lymph % (Auto) 1.4 % Glenn % (Auto) 2.0 % Eos % (Auto) 0.0 % Baso % (Auto) 0.1 % Reticulocyte % (Auto) (0.5-2.0) % Neut # (Auto) 28.90 H (1.4-6.5) K/uL Lymph # (Auto) 0.43 L (1.2-3.4) K/uL Glenn # (Auto) 0.60 H (0.11-0.59) K/uL Eos # (Auto) 0.01 (0-0.5) K/uL Baso # (Auto) 0.03 (0-0.2) K/uL Reticulocyte # (0.02-0.10) 10^6/uL Immature Gran # (Auto) 0.19 H (0.00-0.02) K/uL Absolute Nucleated RBC 0.07 H (0-0) K/uL Nucleated RBC % (auto) 0.2 % Platelet Estimate Decreased L (Normal) Poikilocytosis Present Anisocytosis Present Pappenheimer Bodies Target Cells Echinocytes PT (9.0-12.0) Seconds INR (0.9-1.1) APTT (21.0-31.0) Seconds PTT Ratio VBG pH (7.36-7.41) VBG pCO2 (38-50) mmHg VBG pO2 mmHg VBG HCO3 mmol/L VBG O2 Saturation % VBG Base Excess mEq/L Barometric Pressure mm/Hg Sodium 135 L (136-145) mmol/L Potassium (3.5-5.1) mmol/L Chloride 102 (98-107) mmol/L Carbon Dioxide 18 L (21-32) mmol/L Anion Gap 15 H (3-11) BUN 9 (6-23) mg/dl Creatinine 3.18 H (0.6-1.2) mg/dl Est Cr Clr Drug Dosing 22.9 ml/min Est GFR ( Amer) 20.3 ml/min Est GFR (Non-Af Amer) 17.5 ml/min BUN/Creatinine Ratio 2.8 L (10-20) Glucose 59 L (70-99) mg/dl POC Glucose (70-99) mg/dl Lactate (0.4-2.0) mmol/L Calcium 8.5 (8.5-10.1) mg/dl Phosphorus 1.7 L (2.5-4.9) mg/dl Magnesium (1.7-2.4) mg/dl Iron (35-150) mcg/dl Transferrin (200-360) mg/dl Ferritin (8-388) ng/ml Total Bilirubin 6.4 H (0.2-1.0) mg/dl Direct Bilirubin (0-0.2) mg/dl AST (13-39) U/L ALT 16 (7-52) U/L Alkaline Phosphatase (34-104) U/L Troponin I < 0.03 (0-0.04) ng/ml Total Protein 6.4 (6.0-8.3) gm/dl Albumin 2.5 L (3.4-5.0) gm/dl Globulin 3.9 (2.5-4.0) gm/dl Albumin/Globulin Ratio 0.6 L (0.9-2) Lipase (11-82) U/L Vitamin B12 (211-911) pg/ml Folate (>5.38) ng/ml Procalcitonin 4.79 H (0-0.5) ng/ml TSH (0.300-4.500) uIu/ml Fluid Neutrophils % % Fluid Lymphocytes % % Fluid Eosinophils % % Fluid Basophils % % Fluid Meso/Macro/Glenn % % Fluid Comment Peritoneal Color Peritoneal Appearance Peritoneal WBC (0-300) /ul Peritoneal RBC /uL Peritoneal Tot Protein g/dl Peritoneal Albumin g/dl Nasal Screen MRSA (PCR) (Negative) SARS-CoV-2 (PCR) (Negative) Influenza Type A (PCR) (Neg) Influenza Type B (PCR) (Neg) RSV (RT-PCR) (Neg) Blood Type Antibody Screen Crossmatch 11/17/21 11/17/21 11/17/21 Range/Units 16:27 16:27 16:27 WBC (4.8-10.8) K/uL RBC (4.2-5.4) M/uL Hgb (12.0-16.0) g/dL Hct (37-47) % MCV (80-100) fL MCH (25-34) pg MCHC (32-36) g/dL RDW Std Deviation (36.4-46.3) fL RDW Coeff of Christine (11.5-14.5) % Plt Count (130-400) K/uL MPV (7.4-10.4) fL Immature Gran % (Auto) % Neut % (Auto) % Lymph % (Auto) % Glenn % (Auto) % Eos % (Auto) % Baso % (Auto) % Reticulocyte % (Auto) (0.5-2.0) % Neut # (Auto) (1.4-6.5) K/uL Lymph # (Auto) (1.2-3.4) K/uL Glenn # (Auto) (0.11-0.59) K/uL Eos # (Auto) (0-0.5) K/uL Baso # (Auto) (0-0.2) K/uL Reticulocyte # (0.02-0.10) 10^6/uL Immature Gran # (Auto) (0.00-0.02) K/uL Absolute Nucleated RBC (0-0) K/uL Nucleated RBC % (auto) % Platelet Estimate (Normal) Poikilocytosis Anisocytosis Pappenheimer Bodies Target Cells Echinocytes PT 15.1 H (9.0-12.0) Seconds INR 1.5 H (0.9-1.1) APTT 28.8 (21.0-31.0) Seconds PTT Ratio 1.1 VBG pH (7.36-7.41) VBG pCO2 (38-50) mmHg VBG pO2 mmHg VBG HCO3 mmol/L VBG O2 Saturation % VBG Base Excess mEq/L Barometric Pressure mm/Hg Sodium (136-145) mmol/L Potassium (3.5-5.1) mmol/L Chloride (98-107) mmol/L Carbon Dioxide (21-32) mmol/L Anion Gap (3-11) BUN (6-23) mg/dl Creatinine (0.6-1.2) mg/dl Est Cr Clr Drug Dosing ml/min Est GFR ( Amer) ml/min Est GFR (Non-Af Amer) ml/min BUN/Creatinine Ratio (10-20) Glucose (70-99) mg/dl POC Glucose (70-99) mg/dl Lactate 4.9 H* (0.4-2.0) mmol/L Calcium (8.5-10.1) mg/dl Phosphorus (2.5-4.9) mg/dl Magnesium (1.7-2.4) mg/dl Iron (35-150) mcg/dl Transferrin (200-360) mg/dl Ferritin (8-388) ng/ml Total Bilirubin (0.2-1.0) mg/dl Direct Bilirubin (0-0.2) mg/dl AST (13-39) U/L ALT (7-52) U/L Alkaline Phosphatase (34-104) U/L Troponin I (0-0.04) ng/ml Total Protein (6.0-8.3) gm/dl Albumin (3.4-5.0) gm/dl Globulin (2.5-4.0) gm/dl Albumin/Globulin Ratio (0.9-2) Lipase (11-82) U/L Vitamin B12 (211-911) pg/ml Folate (>5.38) ng/ml Procalcitonin (0-0.5) ng/ml TSH 4.401 (0.300-4.500) uIu/ml Fluid Neutrophils % % Fluid Lymphocytes % % Fluid Eosinophils % % Fluid Basophils % % Fluid Meso/Macro/Glenn % % Fluid Comment Peritoneal Color Peritoneal Appearance Peritoneal WBC (0-300) /ul Peritoneal RBC /uL Peritoneal Tot Protein g/dl Peritoneal Albumin g/dl Nasal Screen MRSA (PCR) (Negative) SARS-CoV-2 (PCR) (Negative) Influenza Type A (PCR) (Neg) Influenza Type B (PCR) (Neg) RSV (RT-PCR) (Neg) Blood Type Antibody Screen Crossmatch 11/17/21 11/17/21 11/17/21 Range/Units 17:32 17:32 17:32 WBC (4.8-10.8) K/uL RBC (4.2-5.4) M/uL Hgb (12.0-16.0) g/dL Hct (37-47) % MCV (80-100) fL MCH (25-34) pg MCHC (32-36) g/dL RDW Std Deviation (36.4-46.3) fL RDW Coeff of Christine (11.5-14.5) % Plt Count (130-400) K/uL MPV (7.4-10.4) fL Immature Gran % (Auto) % Neut % (Auto) % Lymph % (Auto) % Glenn % (Auto) % Eos % (Auto) % Baso % (Auto) % Reticulocyte % (Auto) 4.0 H (0.5-2.0) % Neut # (Auto) (1.4-6.5) K/uL Lymph # (Auto) (1.2-3.4) K/uL Glenn # (Auto) (0.11-0.59) K/uL Eos # (Auto) (0-0.5) K/uL Baso # (Auto) (0-0.2) K/uL Reticulocyte # 0.08 (0.02-0.10) 10^6/uL Immature Gran # (Auto) (0.00-0.02) K/uL Absolute Nucleated RBC (0-0) K/uL Nucleated RBC % (auto) % Platelet Estimate (Normal) Poikilocytosis Anisocytosis Pappenheimer Bodies Target Cells Echinocytes PT (9.0-12.0) Seconds INR (0.9-1.1) APTT (21.0-31.0) Seconds PTT Ratio VBG pH (7.36-7.41) VBG pCO2 (38-50) mmHg VBG pO2 mmHg VBG HCO3 mmol/L VBG O2 Saturation % VBG Base Excess mEq/L Barometric Pressure mm/Hg Sodium 135 L (136-145) mmol/L Potassium 2.7 L (3.5-5.1) mmol/L Chloride 102 (98-107) mmol/L Carbon Dioxide 21 (21-32) mmol/L Anion Gap 12 H (3-11) BUN 9 (6-23) mg/dl Creatinine 3.25 H (0.6-1.2) mg/dl Est Cr Clr Drug Dosing 22.4 ml/min Est GFR ( Amer) 19.8 ml/min Est GFR (Non-Af Amer) 17.1 ml/min BUN/Creatinine Ratio 2.8 L (10-20) Glucose 68 L (70-99) mg/dl POC Glucose (70-99) mg/dl Lactate (0.4-2.0) mmol/L Calcium 8.1 L (8.5-10.1) mg/dl Phosphorus (2.5-4.9) mg/dl Magnesium (1.7-2.4) mg/dl Iron 70 (35-150) mcg/dl Transferrin < 95 L (200-360) mg/dl Ferritin 732.2 H (8-388) ng/ml Total Bilirubin 6.4 H (0.2-1.0) mg/dl Direct Bilirubin (0-0.2) mg/dl AST 48 H (13-39) U/L ALT 11 (7-52) U/L Alkaline Phosphatase 113 H (34-104) U/L Troponin I (0-0.04) ng/ml Total Protein 6.1 (6.0-8.3) gm/dl Albumin 2.3 L (3.4-5.0) gm/dl Globulin 3.8 (2.5-4.0) gm/dl Albumin/Globulin Ratio 0.6 L (0.9-2) Lipase 25 (11-82) U/L Vitamin B12 (211-911) pg/ml Folate (>5.38) ng/ml Procalcitonin (0-0.5) ng/ml TSH (0.300-4.500) uIu/ml Fluid Neutrophils % % Fluid Lymphocytes % % Fluid Eosinophils % % Fluid Basophils % % Fluid Meso/Macro/Glenn % % Fluid Comment Peritoneal Color Peritoneal Appearance Peritoneal WBC (0-300) /ul Peritoneal RBC /uL Peritoneal Tot Protein g/dl Peritoneal Albumin g/dl Nasal Screen MRSA (PCR) (Negative) SARS-CoV-2 (PCR) (Negative) Influenza Type A (PCR) (Neg) Influenza Type B (PCR) (Neg) RSV (RT-PCR) (Neg) Blood Type Antibody Screen Crossmatch 11/17/21 11/17/21 11/17/21 Range/Units 17:32 17:34 17:34 WBC (4.8-10.8) K/uL RBC (4.2-5.4) M/uL Hgb (12.0-16.0) g/dL Hct (37-47) % MCV (80-100) fL MCH (25-34) pg MCHC (32-36) g/dL RDW Std Deviation (36.4-46.3) fL RDW Coeff of Christine (11.5-14.5) % Plt Count (130-400) K/uL MPV (7.4-10.4) fL Immature Gran % (Auto) % Neut % (Auto) % Lymph % (Auto) % Glenn % (Auto) % Eos % (Auto) % Baso % (Auto) % Reticulocyte % (Auto) (0.5-2.0) % Neut # (Auto) (1.4-6.5) K/uL Lymph # (Auto) (1.2-3.4) K/uL Glenn # (Auto) (0.11-0.59) K/uL Eos # (Auto) (0-0.5) K/uL Baso # (Auto) (0-0.2) K/uL Reticulocyte # (0.02-0.10) 10^6/uL Immature Gran # (Auto) (0.00-0.02) K/uL Absolute Nucleated RBC (0-0) K/uL Nucleated RBC % (auto) % Platelet Estimate (Normal) Poikilocytosis Anisocytosis Pappenheimer Bodies Target Cells Echinocytes PT (9.0-12.0) Seconds INR (0.9-1.1) APTT (21.0-31.0) Seconds PTT Ratio VBG pH (7.36-7.41) VBG pCO2 (38-50) mmHg VBG pO2 mmHg VBG HCO3 mmol/L VBG O2 Saturation % VBG Base Excess mEq/L Barometric Pressure mm/Hg Sodium (136-145) mmol/L Potassium (3.5-5.1) mmol/L Chloride (98-107) mmol/L Carbon Dioxide (21-32) mmol/L Anion Gap (3-11) BUN (6-23) mg/dl Creatinine (0.6-1.2) mg/dl Est Cr Clr Drug Dosing ml/min Est GFR ( Amer) ml/min Est GFR (Non-Af Amer) ml/min BUN/Creatinine Ratio (10-20) Glucose (70-99) mg/dl POC Glucose (70-99) mg/dl Lactate (0.4-2.0) mmol/L Calcium (8.5-10.1) mg/dl Phosphorus (2.5-4.9) mg/dl Magnesium 1.4 L (1.7-2.4) mg/dl Iron (35-150) mcg/dl Transferrin (200-360) mg/dl Ferritin (8-388) ng/ml Total Bilirubin (0.2-1.0) mg/dl Direct Bilirubin (0-0.2) mg/dl AST (13-39) U/L ALT (7-52) U/L Alkaline Phosphatase (34-104) U/L Troponin I (0-0.04) ng/ml Total Protein (6.0-8.3) gm/dl Albumin (3.4-5.0) gm/dl Globulin (2.5-4.0) gm/dl Albumin/Globulin Ratio (0.9-2) Lipase (11-82) U/L Vitamin B12 > 1500 H (211-911) pg/ml Folate 21.19 (>5.38) ng/ml Procalcitonin (0-0.5) ng/ml TSH (0.300-4.500) uIu/ml Fluid Neutrophils % % Fluid Lymphocytes % % Fluid Eosinophils % % Fluid Basophils % % Fluid Meso/Macro/Glenn % % Fluid Comment Peritoneal Color Peritoneal Appearance Peritoneal WBC (0-300) /ul Peritoneal RBC /uL Peritoneal Tot Protein g/dl Peritoneal Albumin g/dl Nasal Screen MRSA (PCR) (Negative) SARS-CoV-2 (PCR) (Negative) Influenza Type A (PCR) (Neg) Influenza Type B (PCR) (Neg) RSV (RT-PCR) (Neg) Blood Type A Positive Antibody Screen NEGATIVE Crossmatch See Detail 11/17/21 11/17/21 11/17/21 Range/Units 17:34 17:45 21:19 WBC (4.8-10.8) K/uL RBC (4.2-5.4) M/uL Hgb (12.0-16.0) g/dL Hct (37-47) % MCV (80-100) fL MCH (25-34) pg MCHC (32-36) g/dL RDW Std Deviation (36.4-46.3) fL RDW Coeff of Christine (11.5-14.5) % Plt Count (130-400) K/uL MPV (7.4-10.4) fL Immature Gran % (Auto) % Neut % (Auto) % Lymph % (Auto) % Glenn % (Auto) % Eos % (Auto) % Baso % (Auto) % Reticulocyte % (Auto) (0.5-2.0) % Neut # (Auto) (1.4-6.5) K/uL Lymph # (Auto) (1.2-3.4) K/uL Glenn # (Auto) (0.11-0.59) K/uL Eos # (Auto) (0-0.5) K/uL Baso # (Auto) (0-0.2) K/uL Reticulocyte # (0.02-0.10) 10^6/uL Immature Gran # (Auto) (0.00-0.02) K/uL Absolute Nucleated RBC (0-0) K/uL Nucleated RBC % (auto) % Platelet Estimate (Normal) Poikilocytosis Anisocytosis Pappenheimer Bodies Target Cells Echinocytes PT (9.0-12.0) Seconds INR (0.9-1.1) APTT (21.0-31.0) Seconds PTT Ratio VBG pH 7.36 (7.36-7.41) VBG pCO2 37 L (38-50) mmHg VBG pO2 27 mmHg VBG HCO3 20 mmol/L VBG O2 Saturation < 60.0 % VBG Base Excess -4.7 mEq/L Barometric Pressure 732.1 mm/Hg Sodium (136-145) mmol/L Potassium (3.5-5.1) mmol/L Chloride (98-107) mmol/L Carbon Dioxide (21-32) mmol/L Anion Gap (3-11) BUN (6-23) mg/dl Creatinine (0.6-1.2) mg/dl Est Cr Clr Drug Dosing ml/min Est GFR ( Amer) ml/min Est GFR (Non-Af Amer) ml/min BUN/Creatinine Ratio (10-20) Glucose (70-99) mg/dl POC Glucose (70-99) mg/dl Lactate 3.2 H* (0.4-2.0) mmol/L Calcium (8.5-10.1) mg/dl Phosphorus (2.5-4.9) mg/dl Magnesium (1.7-2.4) mg/dl Iron (35-150) mcg/dl Transferrin (200-360) mg/dl Ferritin (8-388) ng/ml Total Bilirubin (0.2-1.0) mg/dl Direct Bilirubin (0-0.2) mg/dl AST (13-39) U/L ALT (7-52) U/L Alkaline Phosphatase (34-104) U/L Troponin I (0-0.04) ng/ml Total Protein (6.0-8.3) gm/dl Albumin (3.4-5.0) gm/dl Globulin (2.5-4.0) gm/dl Albumin/Globulin Ratio (0.9-2) Lipase (11-82) U/L Vitamin B12 (211-911) pg/ml Folate (>5.38) ng/ml Procalcitonin (0-0.5) ng/ml TSH (0.300-4.500) uIu/ml Fluid Neutrophils % % Fluid Lymphocytes % % Fluid Eosinophils % % Fluid Basophils % % Fluid Meso/Macro/Glenn % % Fluid Comment Peritoneal Color Peritoneal Appearance Peritoneal WBC (0-300) /ul Peritoneal RBC /uL Peritoneal Tot Protein g/dl Peritoneal Albumin g/dl Nasal Screen MRSA (PCR) (Negative) SARS-CoV-2 (PCR) NEGATIVE (Negative) Influenza Type A (PCR) Positive A* (Neg) Influenza Type B (PCR) Negative (Neg) RSV (RT-PCR) Negative (Neg) Blood Type Antibody Screen Crossmatch 11/18/21 11/18/21 11/18/21 Range/Units 01:20 05:08 06:51 WBC (4.8-10.8) K/uL RBC 2.26 L (4.2-5.4) M/uL Hgb (12.0-16.0) g/dL Hct (37-47) % MCV 100.4 H D (80-100) fL MCH 33.6 (25-34) pg MCHC 33.5 (32-36) g/dL RDW Std Deviation 72.0 H (36.4-46.3) fL RDW Coeff of Christine 21.0 H (11.5-14.5) % Plt Count (130-400) K/uL MPV 10.9 H (7.4-10.4) fL Immature Gran % (Auto) 0.3 % Neut % (Auto) 92.9 % Lymph % (Auto) 3.7 % Glenn % (Auto) 3.0 % Eos % (Auto) 0.0 % Baso % (Auto) 0.1 % Reticulocyte % (Auto) (0.5-2.0) % Neut # (Auto) 10.96 H (1.4-6.5) K/uL Lymph # (Auto) 0.43 L (1.2-3.4) K/uL Glenn # (Auto) 0.35 (0.11-0.59) K/uL Eos # (Auto) 0.00 (0-0.5) K/uL Baso # (Auto) 0.01 (0-0.2) K/uL Reticulocyte # (0.02-0.10) 10^6/uL Immature Gran # (Auto) 0.03 H (0.00-0.02) K/uL Absolute Nucleated RBC 0.04 H (0-0) K/uL Nucleated RBC % (auto) 0.4 % Platelet Estimate (Normal) Poikilocytosis Anisocytosis Present Pappenheimer Bodies Target Cells 1+ Echinocytes PT (9.0-12.0) Seconds INR (0.9-1.1) APTT (21.0-31.0) Seconds PTT Ratio VBG pH (7.36-7.41) VBG pCO2 (38-50) mmHg VBG pO2 mmHg VBG HCO3 mmol/L VBG O2 Saturation % VBG Base Excess mEq/L Barometric Pressure mm/Hg Sodium (136-145) mmol/L Potassium (3.5-5.1) mmol/L Chloride (98-107) mmol/L Carbon Dioxide (21-32) mmol/L Anion Gap (3-11) BUN (6-23) mg/dl Creatinine (0.6-1.2) mg/dl Est Cr Clr Drug Dosing ml/min Est GFR ( Amer) ml/min Est GFR (Non-Af Amer) ml/min BUN/Creatinine Ratio (10-20) Glucose (70-99) mg/dl POC Glucose 200 H (70-99) mg/dl Lactate (0.4-2.0) mmol/L Calcium (8.5-10.1) mg/dl Phosphorus (2.5-4.9) mg/dl Magnesium (1.7-2.4) mg/dl Iron (35-150) mcg/dl Transferrin (200-360) mg/dl Ferritin (8-388) ng/ml Total Bilirubin (0.2-1.0) mg/dl Direct Bilirubin (0-0.2) mg/dl AST (13-39) U/L ALT (7-52) U/L Alkaline Phosphatase (34-104) U/L Troponin I (0-0.04) ng/ml Total Protein (6.0-8.3) gm/dl Albumin (3.4-5.0) gm/dl Globulin (2.5-4.0) gm/dl Albumin/Globulin Ratio (0.9-2) Lipase (11-82) U/L Vitamin B12 (211-911) pg/ml Folate (>5.38) ng/ml Procalcitonin (0-0.5) ng/ml TSH (0.300-4.500) uIu/ml Fluid Neutrophils % % Fluid Lymphocytes % % Fluid Eosinophils % % Fluid Basophils % % Fluid Meso/Macro/Glenn % % Fluid Comment Peritoneal Color Peritoneal Appearance Peritoneal WBC (0-300) /ul Peritoneal RBC /uL Peritoneal Tot Protein g/dl Peritoneal Albumin g/dl Nasal Screen MRSA (PCR) Negative (Negative) SARS-CoV-2 (PCR) (Negative) Influenza Type A (PCR) (Neg) Influenza Type B (PCR) (Neg) RSV (RT-PCR) (Neg) Blood Type Antibody Screen Crossmatch 11/18/21 11/18/21 11/18/21 Range/Units 06:51 06:54 Unknown WBC (4.8-10.8) K/uL RBC (4.2-5.4) M/uL Hgb (12.0-16.0) g/dL Hct (37-47) % MCV (80-100) fL MCH (25-34) pg MCHC (32-36) g/dL RDW Std Deviation (36.4-46.3) fL RDW Coeff of Christine (11.5-14.5) % Plt Count (130-400) K/uL MPV (7.4-10.4) fL Immature Gran % (Auto) % Neut % (Auto) % Lymph % (Auto) % Glenn % (Auto) % Eos % (Auto) % Baso % (Auto) % Reticulocyte % (Auto) (0.5-2.0) % Neut # (Auto) (1.4-6.5) K/uL Lymph # (Auto) (1.2-3.4) K/uL Glenn # (Auto) (0.11-0.59) K/uL Eos # (Auto) (0-0.5) K/uL Baso # (Auto) (0-0.2) K/uL Reticulocyte # (0.02-0.10) 10^6/uL Immature Gran # (Auto) (0.00-0.02) K/uL Absolute Nucleated RBC (0-0) K/uL Nucleated RBC % (auto) % Platelet Estimate (Normal) Poikilocytosis Anisocytosis Pappenheimer Bodies Target Cells Echinocytes PT (9.0-12.0) Seconds INR (0.9-1.1) APTT (21.0-31.0) Seconds PTT Ratio VBG pH (7.36-7.41) VBG pCO2 (38-50) mmHg VBG pO2 mmHg VBG HCO3 mmol/L VBG O2 Saturation % VBG Base Excess mEq/L Barometric Pressure mm/Hg Sodium 131 L (136-145) mmol/L Potassium 3.7 D (3.5-5.1) mmol/L Chloride 101 (98-107) mmol/L Carbon Dioxide 21 (21-32) mmol/L Anion Gap 9 (3-11) BUN 11 (6-23) mg/dl Creatinine 4.03 H D (0.6-1.2) mg/dl Est Cr Clr Drug Dosing 17.9 ml/min Est GFR ( Amer) 15.2 ml/min Est GFR (Non-Af Amer) 13.1 ml/min BUN/Creatinine Ratio 2.7 L (10-20) Glucose 182 H (70-99) mg/dl POC Glucose (70-99) mg/dl Lactate 0.6 (0.4-2.0) mmol/L Calcium 7.4 L (8.5-10.1) mg/dl Phosphorus 3.2 D (2.5-4.9) mg/dl Magnesium (1.7-2.4) mg/dl Iron (35-150) mcg/dl Transferrin (200-360) mg/dl Ferritin (8-388) ng/ml Total Bilirubin 6.2 H (0.2-1.0) mg/dl Direct Bilirubin (0-0.2) mg/dl AST 30 (13-39) U/L ALT 9 (7-52) U/L Alkaline Phosphatase 78 (34-104) U/L Troponin I (0-0.04) ng/ml Total Protein 5.3 L (6.0-8.3) gm/dl Albumin 2.7 L (3.4-5.0) gm/dl Globulin 2.6 (2.5-4.0) gm/dl Albumin/Globulin Ratio 1.0 (0.9-2) Lipase (11-82) U/L Vitamin B12 (211-911) pg/ml Folate (>5.38) ng/ml Procalcitonin (0-0.5) ng/ml TSH (0.300-4.500) uIu/ml Fluid Neutrophils % 49 % Fluid Lymphocytes % 9 % Fluid Eosinophils % 0 % Fluid Basophils % 0 % Fluid Meso/Macro/Glenn % 42 % Fluid Comment Peritoneal Color YELLOW Peritoneal Appearance CLEAR Peritoneal WBC 48 (0-300) /ul Peritoneal RBC < 3000 /uL Peritoneal Tot Protein 1.3 g/dl Peritoneal Albumin < 0.6 g/dl Nasal Screen MRSA (PCR) (Negative) SARS-CoV-2 (PCR) (Negative) Influenza Type A (PCR) (Neg) Influenza Type B (PCR) (Neg) RSV (RT-PCR) (Neg) Blood Type Antibody Screen Crossmatch 11/19/21 11/19/21 Range/Units 05:01 05:01 WBC 15.81 H (4.8-10.8) K/uL RBC 2.26 L (4.2-5.4) M/uL Hgb 7.4 L (12.0-16.0) g/dL Hct 22.8 L (37-47) % MCV 100.9 H (80-100) fL MCH 32.7 (25-34) pg MCHC 32.5 (32-36) g/dL RDW Std Deviation 75.3 H (36.4-46.3) fL RDW Coeff of Christine 21.2 H (11.5-14.5) % Plt Count 88 L (130-400) K/uL MPV 11.8 H (7.4-10.4) fL Immature Gran % (Auto) 0.2 % Neut % (Auto) 92.9 % Lymph % (Auto) 1.9 % Glenn % (Auto) 4.9 % Eos % (Auto) 0.0 % Baso % (Auto) 0.1 % Reticulocyte % (Auto) (0.5-2.0) % Neut # (Auto) 14.70 H (1.4-6.5) K/uL Lymph # (Auto) 0.30 L (1.2-3.4) K/uL Glenn # (Auto) 0.77 H (0.11-0.59) K/uL Eos # (Auto) 0.00 (0-0.5) K/uL Baso # (Auto) 0.01 (0-0.2) K/uL Reticulocyte # (0.02-0.10) 10^6/uL Immature Gran # (Auto) 0.03 H (0.00-0.02) K/uL Absolute Nucleated RBC 0.04 H (0-0) K/uL Nucleated RBC % (auto) 0.3 % Platelet Estimate (Normal) Poikilocytosis Anisocytosis Present Pappenheimer Bodies 1+ Target Cells Echinocytes 1+ PT (9.0-12.0) Seconds INR (0.9-1.1) APTT (21.0-31.0) Seconds PTT Ratio VBG pH (7.36-7.41) VBG pCO2 (38-50) mmHg VBG pO2 mmHg VBG HCO3 mmol/L VBG O2 Saturation % VBG Base Excess mEq/L Barometric Pressure mm/Hg Sodium 132 L (136-145) mmol/L Potassium 3.5 (3.5-5.1) mmol/L Chloride 102 (98-107) mmol/L Carbon Dioxide 21 (21-32) mmol/L Anion Gap 9 (3-11) BUN 17 (6-23) mg/dl Creatinine 5.18 H* D (0.6-1.2) mg/dl Est Cr Clr Drug Dosing 13.7 ml/min Est GFR ( Amer) 11.3 ml/min Est GFR (Non-Af Amer) 9.7 ml/min BUN/Creatinine Ratio 3.3 L (10-20) Glucose 168 H (70-99) mg/dl POC Glucose (70-99) mg/dl Lactate (0.4-2.0) mmol/L Calcium 7.5 L (8.5-10.1) mg/dl Phosphorus (2.5-4.9) mg/dl Magnesium (1.7-2.4) mg/dl Iron (35-150) mcg/dl Transferrin (200-360) mg/dl Ferritin (8-388) ng/ml Total Bilirubin 3.4 H (0.2-1.0) mg/dl Direct Bilirubin (0-0.2) mg/dl AST 23 (13-39) U/L ALT 8 (7-52) U/L Alkaline Phosphatase 70 (34-104) U/L Troponin I (0-0.04) ng/ml Total Protein 5.2 L (6.0-8.3) gm/dl Albumin 2.6 L (3.4-5.0) gm/dl Globulin 2.6 (2.5-4.0) gm/dl Albumin/Globulin Ratio 1.0 (0.9-2) Lipase (11-82) U/L Vitamin B12 (211-911) pg/ml Folate (>5.38) ng/ml Procalcitonin (0-0.5) ng/ml TSH (0.300-4.500) uIu/ml Fluid Neutrophils % % Fluid Lymphocytes % % Fluid Eosinophils % % Fluid Basophils % % Fluid Meso/Macro/Glenn % % Fluid Comment Peritoneal Color Peritoneal Appearance Peritoneal WBC (0-300) /ul Peritoneal RBC /uL Peritoneal Tot Protein g/dl Peritoneal Albumin g/dl Nasal Screen MRSA (PCR) (Negative) SARS-CoV-2 (PCR) (Negative) Influenza Type A (PCR) (Neg) Influenza Type B (PCR) (Neg) RSV (RT-PCR) (Neg) Blood Type Antibody Screen Crossmatch BMP 11/19/21 05:01 Sodium 132 L Potassium 3.5 Chloride 102 Carbon Dioxide 21 BUN 17 Creatinine 5.18 H* D Glucose 168 H Calcium 7.5 L Liver Function 11/19/21 Range/Units 05:01 Total Bilirubin 3.4 H (0.2-1.0) mg/dl AST 23 (13-39) U/L ALT 8 (7-52) U/L Alkaline Phosphatase 70 (34-104) U/L Albumin 2.6 L (3.4-5.0) gm/dl Medications Administered Current Inpatient Medications Acetaminophen (Acetaminophen 325 Mg Tab) 325 mg PO Q6H PRN PRN Reason: Mild Pain Stop: 12/17/21 22:27 Buprenorphine HCl (Buprenorphine Hcl 8 Mg Subl) 8 mg SL DAILY [facility] Stop: 12/18/21 08:59 Last Admin: 11/19/21 07:57 Dose: 8 mg Documented by: Epoetin John (Epoetin John 10,000 Units/Ml Vial) 10,000 units IV ONE ONE Stop: 11/20/21 07:01 Folic Acid (Folic Acid 1 Mg Tab) 1 mg PO BID [facility] Stop: 12/18/21 08:59 Last Admin: 11/19/21 07:57 Dose: 1 mg Documented by: Heparin Sodium (Porcine) (Heparin Sod (Porcine) 1000 Unit/Ml) 2,000 units IV ONE ONE Stop: 11/20/21 07:01 Heparin Sodium (Porcine) (Heparin Sod (Porcine) 1000 Unit/Ml) 400 units IV Q1H [facility] Stop: 11/20/21 09:01 Daptomycin 325 mg/ Syringe 6.5 mls @ 3.25 mls/min IV Q48H [facility]; Protocol Stop: 11/20/21 01:59 Last Admin: 11/18/21 03:27 Dose: 3.25 mls/min Documented by: Ceftriaxone Sodium 2,000 mg/ (Dextrose) 70 mls @ 140 mls/hr IV Q24H [facility]; Protocol Stop: 11/28/21 13:59 Last Admin: 11/19/21 15:03 Dose: 140 mls/hr Documented by: Sodium Chloride (Nss 1000ml) 1,000 mls @ 0 mls/hr IV .Q0M PRN PRN Reason: For Hemodialysis Use ONLY Stop: 11/20/21 12:59 Lorazepam (Lorazepam 0.5 Mg Tab) 0.5 mg PO TID PRN PRN Reason: Anxiety Stop: 12/17/21 22:27 Last Admin: 11/19/21 07:57 Dose: 0.5 mg Documented by: Metronidazole (Metronidazole 500 Mg Tab) 500 mg PO Q8H [facility] Stop: 11/29/21 14:29 Last Admin: 11/19/21 15:03 Dose: 500 mg Documented by: Miscellaneous Information (Daptomycin Consult Active) 1 ea N/A UD PRN PRN Reason: Consult Stop: 12/18/21 01:18 Pantoprazole Sodium (Pantoprazole 40 Mg Tab) 40 mg PO [facility] Stop: 12/18/21 08:59 Last Admin: 11/19/21 07:57 Dose: 40 mg Documented by: Prednisone (Prednisone 5 Mg Tab) 5 mg PO [facility] Stop: 12/19/21 08:59 Last Admin: 11/18/21 08:11 Dose: 5 mg Documented by: Trimethoprim/Sulfamethoxazole (Sulfamethoxazole/Trimethoprim Ds 800/160mg Tab) 1 tab PO [facility] Stop: 12/20/21 08:59 (1) Cirrhosis of liver Ascites presence: with ascites Hepatic cirrhosis type: unspecified hepatic cirrhosis Qualified Code(s): K74.60 - Unspecified cirrhosis of liver; R18.8 - Other ascites (2) Anemia Anemia type: unspecified type Qualified Code(s): D64.9 - Anemia, unspecified
[2021-11-19] MEDS: metroNIDAZOLE 500 MG TAB PO SCH ×2 (15:03→21:46)
[2021-11-19] MEDS: cefTRIAXone SODIUM 2,000 MG in DEXTROSE 5% 50 ML IV SCH (15:03)
[2021-11-20 05:03] LABS: Hematocrit (blood only) 26.9 % (37-47); Hemoglobin 8.8 g/dL (12.0-16.0); Mean Corpuscular Hemoglobin 33.5 pg (25-34); Mean Corpuscular Hgb Conc 32.7 g/dL (32-36); Mean Corpuscular Volume 102.3 fL (80-100); Mean Platelet Volume 12.2 fL (7.4-10.4); Nucleated RBC # (auto) 0.06 K/uL (0-0); Nucleated RBC % (auto) 0.3 %; Platelet Count 105 K/uL (130-400); RDW Coefficient of Variation 20.8 % (11.5-14.5); RDW Standard Deviation 74.5 fL (36.4-46.3); Red Blood Count 2.63 M/uL (4.2-5.4); White Blood Count 20.98 K/uL (4.8-10.8)
[2021-11-20 05:21] LABS: Albumin Globulin Ratio 0.9 (0.9-2); Albumin Level 2.6 gm/dl (3.4-5.0); BUN Creatinine Ratio 4.2 (10-20); Bilirubin,Total 3.2 mg/dl (0.2-1.0); Calcium 7.7 mg/dl (8.5-10.1); Est GFR (African American) 9.6 ml/min; Est GFR (Non-African American) 8.3 ml/min; Globulin 2.9 gm/dl (2.5-4.0); Magnesium 1.7 mg/dl (1.7-2.4); Phosphorus 2.6 mg/dl (2.5-4.9); Potassium 3.7 mmol/L (3.5-5.1); Total Protein 5.5 gm/dl (6.0-8.3)
[2021-11-20] MEDS ORDERED: EPOETIN ALFA 10,000 UNITS/ML VIAL IV ONE (07:00)
[2021-11-20] MEDS ORDERED: SODIUM CHLORIDE 0.9% 1000ML 1,000 ML IV PRN (07:00)
[2021-11-20] MEDS ORDERED: HEPARIN SOD (PORCINE) 1000 UNIT/ML IV ONE (07:00)
[2021-11-20] MEDS: metroNIDAZOLE 500 MG TAB PO SCH (07:03)
[2021-11-20] MEDS ORDERED: SULFAMETHOXAZOLE/TRIMETHOPRIM DS 800/160MG TAB PO SCH (09:00)
[2021-11-20] MEDS ORDERED: OSELTAMIVIR PHOSPHATE SUSP 30 MG/5 ML UDP PO SCH (09:00)
--- NOTE | 2021-11-20 09:35 | Gastroenterology Progress Note ---
Date of Service November 20, 2021 Assessment & Plan (1) Cirrhosis of liver: (2) Diarrhea: (3) Elevated LFTs: Plan: 41 year old female admitted w/ sepsis to the ICU, hx of liver disease abdominal pain: s/p paracentesis, no signs of SBP on paracentesis yesterday No biliary obstruction on imaging, however the gallbladder is distended, given pain, consider HIDA Diarrhea: stool culture and c.diff with next BM chronic liver disease management: Hb stable no worrisome output no etoh less than 2g tylenol complete full course of ABX as initiated prior to paracentesis if no BM today, lactulose TID and xifaxan titrated to BM 2-3 times daily Continue supportive care call with questions Recall GI as needed. Thank you for allowing us to participate in the care of this patient. Please call with any acute changes, questions or concerns. Please see addendum below with additional recommendation from my supervising physician. Admission and Anticipated Discharge Date Admission Date: November 17, 2021 Supervising Physician Co-Signing Physician Notes I have seen and examined the patient with SHAAN Malagon whose note reflects our findings and plan. Subjective pt was seen and evaluated, chart reviewed Drowsy this AM but awakes to name Is able to tell me her name, , year. Feels tired, weak Denies abd pain to me. Review of Systems Review of Systems: Unobtainable due to cognitive status Physical Exam Constitutional: + ill appearing, + disheveled, cooperative and comfortable; no acute distress and not in distress Respiratory: normal respiratory effort, lungs clear to auscultation Gastrointestinal (Abdomen): Percussion/Palpation: abdomen soft and + ascites; abdomen nontender, no guarding and abdomen not rigid Skin: no rashes, warm and dry Results & Data ([facility]) Vital Signs (Past 12 Hours) Vital Signs Temp Pulse Resp BP Pulse Ox 11/20/21 04:44 37.1 C 96 H 16 96/65 L 96 11/20/21 00:00 36.8 C 88 20 94/62 L 93 Laboratory Results 11/20/21 11/20/21 Range/Units 04:24 04:24 WBC 20.98 H (4.8-10.8) K/uL RBC 2.63 L (4.2-5.4) M/uL Hgb 8.8 L (12.0-16.0) g/dL Hct 26.9 L (37-47) % MCV 102.3 H (80-100) fL MCH 33.5 (25-34) pg MCHC 32.7 (32-36) g/dL RDW Std Deviation 74.5 H (36.4-46.3) fL RDW Coeff of Christine 20.8 H (11.5-14.5) % Plt Count 105 L (130-400) K/uL MPV 12.2 H (7.4-10.4) fL Absolute Nucleated RBC 0.06 H (0-0) K/uL Nucleated RBC % (auto) 0.3 % Sodium 133 L (136-145) mmol/L Potassium 3.7 (3.5-5.1) mmol/L Chloride 103 (98-107) mmol/L Carbon Dioxide 21 (21-32) mmol/L Anion Gap 9 (3-11) BUN 25 H (6-23) mg/dl Creatinine 5.89 H* D (0.6-1.2) mg/dl Est Cr Clr Drug Dosing 12.0 ml/min Est GFR ( Amer) 9.6 ml/min Est GFR (Non-Af Amer) 8.3 ml/min BUN/Creatinine Ratio 4.2 L (10-20) Glucose 98 (70-99(Fasting)) mg/dl Calcium 7.7 L (8.5-10.1) mg/dl Phosphorus 2.6 (2.5-4.9) mg/dl Magnesium 1.7 (1.7-2.4) mg/dl Total Bilirubin 3.2 H (0.2-1.0) mg/dl AST 42 H (13-39) U/L ALT 11 (7-52) U/L Alkaline Phosphatase 84 (34-104) U/L Total Protein 5.5 L (6.0-8.3) gm/dl Albumin 2.6 L (3.4-5.0) gm/dl Globulin 2.9 (2.5-4.0) gm/dl Albumin/Globulin Ratio 0.9 (0.9-2) (1) Cirrhosis of liver Ascites presence: with ascites Hepatic cirrhosis type: unspecified hepatic cirrhosis Qualified Code(s): K74.60 - Unspecified cirrhosis of liver; R18.8 - Other ascites
[2021-11-20] MEDS: HEPARIN SOD (PORCINE) 1000 UNIT/ML IV SCH ×2 (10:43→10:44)
--- NOTE | 2021-11-20 11:13 | Hospitalist Progress Note ---
Date of Service November 20, 2021 Assessment & Plan (1) Cirrhosis of liver: Plan: Decompensated with development of ascites over the past two weeks. Worsening pain with distension and she is very uncomfortable. Recent flu, however, she currently doesn't have symptoms. No fever but with elevated WBC on admission, clinical picture concerning for SBP. Paracentesis with 5L taken off (11/18) with subsequent improvement in pain but TTP is still present with WBC increasing. Doubt gallbladder pathology as LFTs are not up, however, small stones were present on imaging and she has persistent RUQ pain. No GB inflammation noted on initial CT a/p wo contrast. Leukocytosis continues to increase-remains afebrile. Cont antibiotics and add flagyl for broader anaerobe coverage in the event of gallbladder pathology. Trend serial abdominal exams daily as she does also have pitting edema and bruising on her abdomen in places where she is sore. GI would not recommend diuretics for her although she does still make urine per her report. No spironolactone/furosemide at discharge. 11/20: With increased WBC despite broad coverage, will switch to meropenem. Patient with elevated SOFA score and data states carbapenems may be superior to cephalosporins in more ill patients with SBP. Also consult surgery to evaluate abdominal pain. Trend CBC this afternoon. Oriented but will check ammonia. (2) SBP (spontaneous bacterial peritonitis): (3) Diarrhea: Plan: resolved and BP has improved with improvement in PO intake. Although nutrition unrestricted diet based on thoughts for low K, this patient is passionate about high K foods such as fruits and would cont with renal diet with low sodium. We can add potassium supplementation as needed. (4) Anemia: Plan: Uncertain acute etiology, but chronically this is multifactorial. Similar presentation last year but she had melena at that time and was taking eliquis and coumadin simultaneously. No hematochezia at this time. Nephro recommends to stop Eliquis at this time so will not resume. Appropriate increase in H/H with blood transfusion and hemodynamically stable. Endoscopy last year on 08/2021 revealed esophageal plaques concerning for candidiasis and gastritis. No indication for endoscopy per GI at this time. Cont to trend H/H which is improved today. (5) Influenza A: Plan: recent history of this with course of Tamiflu as outpatient. Not symptomatic at this time. As she tested positive, will cont isolation in the hospital for now. (6) ESRD on hemodialysis: Plan: HD session prior to admission on Saturday, but missed two treatments prior to that. Ascites is likely a result of missed HD sessions. Epogen today per nephro. (7) Hypokalemia: Plan: Likely related to recent diarrhea and poor PO intake, resolved. Low K, low Na diet recommended in dialysis patient. (8) Hypophosphatemia: Plan: Repleted, patient not eating well. Will trend in am. Caution with supplements as patient is on a phosphate binder in setting of HD. (9) Chronic respiratory failure with hypoxia: Plan: Typically on 3LPM via NC at baseline. Rehab per PT who saw her today. (10) Chronic deep vein thrombosis (DVT) of internal jugular vein: Plan: Nephrology recommends against Eliquis at this time. Patient should be set up for a more permanent fistula soon. (11) Heart failure with preserved ejection fraction: Plan: chronic, stable. Cont metoprolol, not on diuretics as outpatient. (12) DVT prophylaxis: Plan: SCDs/chemoprophylaxis contraindicated in setting of anemia with possible bleeding. Full code Dispo-cont [facility]U [facility] Admission and Anticipated Discharge Date Admission Date: November 17, 2021 Subjective 41 yo F presents with worsening pain and abdominal swelling 2/2 ascites. Tolerating PO Denies any BM or diarrhea overnight Increased WBC to 21K (trend since admission [id number]) today. Afebrile but subjectively reports fevers and chils overnight Denied any abdominal pain until she was examined and then reported severe pain worse in RUQ and RLQ. This is consistent with yesterday's exam. Increased tachycardia this morning. Currently on the HD machine with goal 2L off. However, she is tachy in the 120s and hypotensive, so asked nurse to only take off the 500cc and not full 2L for now. Review of Systems Review of Systems: All systems were reviewed and negative except as indicated above. Physical Exam Physical Exam: CONSTITUTIONAL: WNWD, vitals as above, generally ill- appearing, somnolent. EYES: normal conjunctivae, + scleral icterus ENT: external ear and nose normal, oropharynx clear, poor dentition. NECK: trachea midline RESPIRATORY: clear to auscultation bilaterally, no crackles, rales or wheezes, normal respiratory effort CARDIOVASCULAR: tachy rate and regular rhythm, S1 and 2 heard without murmurs, gallops or rubs, no JVD, no peripheral edema CHEST: inspection of chest was normal, HD catheter accessed in left anterior chest wall. Patient is currently on HD machine. GASTROINTESTINAL: soft, protuberance has improved, gen abdominal TTP worse in RUQ, there is pitting edema on the abdomen. stretch walker on skin, + guarding. MUSCULOSKELETAL: strength 5/5 throughout, head is normocephalic and atraumatic SKIN: warm and dry, jaundice NEUROLOGIC: CN 2-12 grossly intact, no sensory deficit, normal cognition, normal speech. No gross focal deficit. PSYCHIATRIC: somnolent but arouses to voice. Cooperative and oriented to person, place and time. Results & Data Results & Data ([facility]) Vital Signs (Past 12 Hours) Vital Signs Temp Pulse Pulse Resp BP BP Pulse Ox 11/20/21 10:30 114 H 88/69 L 11/20/21 10:18 108 H 92/70 L 11/20/21 10:15 111 H 87/74 L 11/20/21 10:00 112 H 108/74 11/20/21 09:50 37.1 C 106 H 11/20/21 09:00 37.2 C 105 H 18 99/63 L 97 11/20/21 04:44 37.1 C 96 H 16 96/65 L 96 11/20/21 00:00 36.8 C 88 20 94/62 L 93 Laboratory Results Short CBC 11/17/21 11/20/21 Range/Units 17:34 04:24 WBC 20.98 H (4.8-10.8) K/uL Hgb 8.8 L (12.0-16.0) g/dL Hct 26.9 L (37-47) % Plt Count 105 L (130-400) K/uL Blood Type A Positive Antibody Screen NEGATIVE Crossmatch See Detail BMP 11/20/21 04:24 Sodium 133 L Potassium 3.7 Chloride 103 Carbon Dioxide 21 BUN 25 H Creatinine 5.89 H* D Glucose 98 Calcium 7.7 L Liver Function 11/20/21 Range/Units 04:24 Total Bilirubin 3.2 H (0.2-1.0) mg/dl AST 42 H (13-39) U/L ALT 11 (7-52) U/L Alkaline Phosphatase 84 (34-104) U/L Albumin 2.6 L (3.4-5.0) gm/dl Medications Administered Current Inpatient Medications Acetaminophen (Acetaminophen 325 Mg Tab) 325 mg PO Q6H PRN PRN Reason: Mild Pain Stop: 12/17/21 22:27 Buprenorphine HCl (Buprenorphine Hcl 8 Mg Subl) 8 mg SL DAILY [facility] Stop: 12/18/21 08:59 Last Admin: 11/19/21 07:57 Dose: 8 mg Documented by: Folic Acid (Folic Acid 1 Mg Tab) 1 mg PO BID [facility] Stop: 12/18/21 08:59 Last Admin: 11/19/21 21:46 Dose: 1 mg Documented by: Ceftriaxone Sodium 2,000 mg/ (Dextrose) 70 mls @ 140 mls/hr IV Q24H [facility]; Protocol Stop: 11/28/21 13:59 Last Infusion: 11/19/21 15:41 Dose: Infused Documented by: Sodium Chloride (Nss 1000ml) 1,000 mls @ 0 mls/hr IV .Q0M PRN PRN Reason: For Hemodialysis Use ONLY Stop: 11/20/21 12:59 Lorazepam (Lorazepam 0.5 Mg Tab) 0.5 mg PO TID PRN PRN Reason: Anxiety Stop: 12/17/21 22:27 Last Admin: 11/19/21 21:47 Dose: 0.5 mg Documented by: Metronidazole (Metronidazole 500 Mg Tab) 500 mg PO Q8H [facility] Stop: 11/29/21 14:29 Last Admin: 11/20/21 07:03 Dose: 500 mg Documented by: Miscellaneous Information (Daptomycin Consult Active) 1 ea N/A UD PRN PRN Reason: Consult Stop: 12/18/21 01:18 Pantoprazole Sodium (Pantoprazole 40 Mg Tab) 40 mg PO [facility] Stop: 12/18/21 08:59 Last Admin: 11/19/21 07:57 Dose: 40 mg Documented by: Prednisone (Prednisone 5 Mg Tab) 5 mg PO QAM [facility] Stop: 12/19/21 08:59 Last Admin: 11/18/21 08:11 Dose: 5 mg Documented by: Trimethoprim/Sulfamethoxazole (Sulfamethoxazole/Trimethoprim Ds 800/160mg Tab) 1 tab PO [facility] Stop: 12/20/21 08:59 (1) Cirrhosis of liver Ascites presence: with ascites Hepatic cirrhosis type: unspecified hepatic cirrhosis Qualified Code(s): K74.60 - Unspecified cirrhosis of liver; R18.8 - Other ascites (2) Anemia Anemia type: unspecified type Qualified Code(s): D64.9 - Anemia, unspecified
[2021-11-20] MEDS ORDERED: CONSULT PHARMACY STA (11:34)
[2021-11-20] MEDS ORDERED: MEROPENEM CONSULT ACTIVE PRN (11:43)
--- NOTE | 2021-11-20 11:55 | Surgery Consultation ---
Date of Consultation November 20, 2021 Assessment & Plan (1) Cirrhosis of liver: This is a 41y F with multiple medical issues including ESRD on HD, cirrhosis, heart failure, chronic respiratory failure who presented to the [facility] on 11/17/21 with n/v and diarrhea. A CT a/p performed on 11/17 revealed mod-large amount of abdominopelvic ascites, along with a distended gallbladder with stones/sludge. A paracentesis was performed on 11/18 and 5L was removed. Apparently IV abx have been started prior to paracentesis, but there is a concern for possible SBP. Labs today show WBC 20, Tb: 3.2, AST: 42, SLT: 11, AlkP: 84. She is afebrile, but vitals reveal tachycardia along with hypotension (which she has been running low). Would continue IV abx. Patient unwilling to let me fully exam her abdomen, but appears to have generalized discomfort that may be worse in the R and upper abdomen. We will order a RUQ US in the meantime to further evaluate if gallbladder/cholecystitis could be another explanation of her abdominal discomfort and sepsis picture. Patient is a poor surgical candidate and there is currently no clear indications for surgery at this point. Will follow along for RUQ US results. No need for repeat CT at this time. (2) Elevated LFTs: Supervising Physician Co-Signing Physician Notes I personally saw and examined the patient with Maria Ines Dumas PA-C and agree with the assessment and plan. 41-year-old female with cirrhotic liver disease and end-stage renal disease with abdominal pain and leukocytosis We will order a right upper quadrant ultrasound to rule out cholecystitis She is likely not a surgical candidate if the ultrasound was positive for cholecystitis Further recommendations following ultrasound results History of Present Illness Attending Physician: Zulema Contreras DO History of Present Illness This is a 41y F with multiple medical issues including ESRD on HD, cirrhosis, heart failure, chronic respiratory failure who presented to the [facility] on 11/17/21 with n/v and diarrhea. Majority of HPI obtained from chart review as patient not very participatory with me, appears drowsy. She does tell me her abdominal pain started about 2 weeks ago. When asked where it is located she waves her hand across mid abdomen. She does report some mild nausea and some vomiting. On chart review pt has a h/o cirrhosis. A CT a/p performed on 11/17 revealed mod-large amount of abdominopelvic ascites, along with a gallbladder with stones/sludge. A paracentesis was performed on 11/18 and 5L was removed. Apparently IV abx have been started prior to paracentesis, but there is a concern for possible SBP. Surgery was consulted today due to ongoing abdominal pain, elevated WBC, for further evaluation. Allergies Allergy/AdvReac Type Severity Reaction Status Date / Time green pepper Allergy Severe Anaphylaxis Verified 11/17/21 19:41 mushroom Allergy Severe ANAPHYLAXIS Verified 11/17/21 19:41 onion Allergy Severe ANAPHYLAXIS Verified 11/17/21 19:41 fentanyl Allergy Intermediate Red, Hot, Unverified 11/17/21 19:41 Itchy Skin tramadol Allergy Mild RASH AND Verified 11/17/21 19:41 ITCHING ketorolac Allergy Unknown RASH Verified 11/17/21 19:41 Home Medications Medication Instructions Recorded Confirmed Type folic acid 1 mg tablet 1 mg PO BID 07/30/20 11/17/21 History buprenorphine HCl 8 mg sublingual 8 mg SUBLINGUAL DAILY 08/25/21 11/17/21 History tablet omeprazole 20 mg capsule,delayed 20 mg PO QAM 08/25/21 11/17/21 History release sevelamer carbonate 800 mg tablet 800 mg PO TIDM 08/25/21 11/17/21 History sulfamethoxazole 800 1 tab PO 3XWK 08/25/21 11/17/21 History mg-trimethoprim 160 mg tablet magnesium oxide 400 mg (241.3 mg 400 mg PO QAM 09/19/21 11/17/21 History magnesium) tablet prednisone 5 mg tablet 5 mg PO QAM 09/19/21 11/17/21 History lorazepam 0.5 mg tablet 0.5 mg PO TID PRN 10/11/21 11/17/21 History apixaban 2.5 mg tablet (Eliquis) 2.5 mg PO BID 11/17/21 11/17/21 History metoprolol succinate 25 mg 25 mg PO QAM 11/17/21 11/17/21 History tablet,extended release 24 hr Patient History Medical History Anemia Ascites Bacteremia due to Gram-positive bacteria Chronic deep vein thrombosis (DVT) of internal jugular vein Chronic respiratory failure with hypoxia Cirrhosis Cold agglutinin disease ESRD on dialysis Folate deficiency Heart failure with preserved ejection fraction Iron deficiency anemia Pleural effusion on left Pleural effusion on right Proteinuria RPGN (rapidly progressive glomerulonephritis) Smoker Surgical History History of bronchoscopy Hx of cardiac cath 08/15/2020: Right and left heart cath at [facility] [place] Family History Mother Lupus (systemic lupus erythematosus) Social History Smoking Status: Former smoker Tobacco Type: Cigarettes Cigarettes Per Day: 3; Hx Alcohol Use: No Hx Substance Use: No Preferred Language: Lao Communication Ability: Effective Firearms Model Maker Required: No Beliefs That Will Affect Care: None marital status: Single Current Living Situation: Family Current Living Situation Comment: fiancee and 2 kids How many Children do You have: 2 Other Information That Helps Us Care for You: No Feels Safe at Home: Yes Safety Concerns: Feels Safe At This Time Assistive Devices: Oxygen - Continuous Review of Systems Gastrointestinal: + abdominal pain, + nausea and + vomiting Physical Exam Physical Exam: awakens temporarily to questioning then quickly falls back asleep appears older than age Constitutional: + ill appearing Gastrointestinal (Abdomen): Inspection/Auscultation: + abdomen distended (mild) Percussion/Palpation: + abdomen tender (generalized discomfort, limited exam, may be somewhat worse in R & upper ab) and abdomen soft Results & Data ([facility]) Vital Signs (Past 12 Hours) Vital Signs Temp Pulse Pulse Resp BP BP Pulse Ox 11/20/21 11:45 120 H 104/54 L 11/20/21 11:30 119 H 97/67 L 11/20/21 11:15 122 H 96/79 L 11/20/21 11:00 115 H 107/77 11/20/21 10:45 122 H 97/66 L 11/20/21 10:30 114 H 88/69 L 11/20/21 10:18 108 H 92/70 L 11/20/21 10:15 111 H 87/74 L 11/20/21 10:00 112 H 108/74 11/20/21 09:50 37.1 C 106 H 11/20/21 09:00 37.2 C 105 H 18 99/63 L 97 11/20/21 04:44 37.1 C 96 H 16 96/65 L 96 11/20/21 00:00 36.8 C 88 20 94/62 L [address] abd pelvis wo con CLINICAL HISTORY: sepsis . Status post fall 2 days ago. Nausea. COMPARISON STUDY: 09/19/2021 CT DOSE: 1440.14 mGy.cm TECHNIQUE: Standard CT of the Abdomen and Pelvis was performed without IV contrast. The patient did not receive oral contrast. A dose lowering technique was utilized adhering to the principles of ALARA. FINDINGS: Lung base: The lung bases are clear. There is minimal bibasilar atelectasis present. Abdominal cavity: Compared to the previous examination, there is now marked abdominal and pelvic ascites. Liver: The liver is again enlarged with fatty infiltration evidence for cirrhosis.. Spleen: There is again evidence for splenomegaly as well. Pancreas: The pancreas is homogeneous in attenuation on these limited noncontrast images. Gall Bladder: The gallbladder is distended with evidence for sludge versus small stones again seen. Adrenal glands: The adrenal glands are normal in size and attenuation on these limited noncontrast images. Kidneys: The kidneys are homogeneous in attenuation on these limited noncontrast images. There is no evidence for gross renal mass, calculus or hydronephrosis bilaterally. Bowel: The bowel loops are normally placed within the abdomen and pelvis without evidence for dilatation or obstruction. There is no evidence for mass lesion. There are no inflammatory changes present. There is no evidence for free air. The appendix is not visualized. Bladder: There is no evidence for focal bladder wall thickening, calculus or diverticulum. : There is no evidence for pelvic mass or adenopathy. Vasculature: There is no evidence for focal aneurysmal dilatation of the abdominal aorta. Osseous structures: There is no acute osseous pathology. IMPRESSION: 1. Compared to previous examination, there is now marked abdominal and pelvic ascites which has increased since the previous study. 2. There is again hepatosplenomegaly with evidence for fatty infiltration of the liver and probable cirrhosis. 3. Sludge versus small stones within the gallbladder is again seen. 4. No evidence for bowel loop dilatation or obstruction. 5. Additional nonacute findings are delineated above. ACT 112: Negative or not required by law. Electronically signed by: Sukumar Garcia M.D. 11/17/2021 6:33 PM ULTRASOUND GUIDED DIAGNOSTIC AND THERAPEUTIC PARACENTESIS CLINICAL HISTORY: paracentesis COMPARISON STUDY: CT of the abdomen and pelvis November 17, 2021. PROCEDURE: The risks, benefits, and alternatives to the procedure were discussed with the patient including the risk of bleeding, infection and injury to adjacent structures. The patient agreed to the procedure and informed written consent was obtained. Following real-time ultrasound localization, the skin of the right lower quadrant was prepped and draped. Following local anesthesia with Xylocaine, the sheath paracentesis needle was inserted and approximately 5 liters of straw-colored fluid was removed by vacuum suction. The patient tolerated the procedure well and no immediate complications were evident. IMPRESSION: Ultrasound-guided paracentesis with removal of 5 liters of ascites. 1 L of ascites was sent to the laboratory for analysis as ordered. ACT 112: Negative or not required by law. PG Care Time/CCT Total # of Minutes Spent Total Time Spent with Patient: Total time spent is greater than 50% in coordination of care (as documented) at patient's floor/unit and/or counseling patient: Coding Level of Care Code 31162 Inpt Consult Level 2 Diagnoses Cirrhosis of liver K74.60; R18.8 Ascites presence: with ascites Hepatic cirrhosis type: unspecified hepatic cirrhosis Elevated LFTs R79.89 (1) Cirrhosis of liver Ascites presence: with ascites Hepatic cirrhosis type: unspecified hepatic cirrhosis Qualified Code(s): K74.60 - Unspecified cirrhosis of liver; R18.8 - Other ascites
[2021-11-20] MEDS: FOLIC ACID 1 MG TAB PO SCH ×2 (13:14→20:46)
[2021-11-20] MEDS: buprenorphine HCL 8 MG SUBL SL SCH (13:14)
[2021-11-20] MEDS: PANTOprazole 40 MG TAB PO SCH (13:14)
[2021-11-20] MEDS: predniSONE 5 MG TAB PO SCH (13:15)
[2021-11-20] MEDS: DAPTOmycin 325 MG in SYRINGE 0 ML IV SCH (13:21)
[2021-11-20] MEDS: MEROPENEM 500 MG in SYRINGE 0 ML IV SCH (15:06)
--- NOTE | 2021-11-20 15:19 | Nephrology Progress Note ---
Date of Service November 20, 2021 Assessment & Plan (1) ESRD on hemodialysis: Plan: Patient with ESRD on dialysis Saturday. She had dialysis yesterday outpatient. She however missed dialysis on Saturday and Saturday. Electrolytes stable. She tolerated dialysis today but complicated by hypertension and tachycardia. Was unable to remove any fluid today. -We will plan for dialysis on Saturday (2) Anemia: Plan: Patient with anemia of multifactorial etiology including chronic renal disease and GI bleed. She received 2 units of blood. I think patient should be off Eliquis going forward. -We will continue Epogen with dialysis (3) Cirrhosis of liver: Plan: Patient with decompensated cirrhosis complicated by ascites and likely varices. She is status post paracentesis and and fluid cell count was normal. She is on empiric antibiotics. Admission and Anticipated Discharge Date Admission Date: November 17, 2021 Subjective Seen in follow-up for ESRD. Patient remains weak with poor p.o. intake. She has tachycardia and hypotension. Patient was seen and examined while on dialysis. Review of Systems Review of Systems: All other systems were reviewed and negative except as noted in HPI Physical Exam Physical Exam: General exam: Appears comfortable, no acute distress HEENT: Pupils are equal and reactive to light Neck: No JVD, neck is supple trachea is midline Respiratory system: Clear breath sounds bilaterally. Gastrointestinal: Abdomen is soft, moderately distended, very tender, bowel soun ds are present CVS: Regular rate and rhythm. No murmurs, rubs or gallops Musculoskeletal: No joint or muscle tenderness Extremities: Non tender, no edema, peripheral pulses are present Neuro: Oriented, no tremors, no focal neurological deficits Skin: No rashes Results & Data ([facility]) Vital Signs (Past 12 Hours) Vital Signs Temp Pulse Pulse Resp BP BP Pulse Ox 11/20/21 14:00 37.3 C 11/20/21 13:35 37.0 C 138 H 94/59 L 11/20/21 13:30 136 H 98/64 L 11/20/21 13:15 141 H 92/67 L 11/20/21 13:00 139 H 95/67 L 11/20/21 12:45 135 H 104/62 11/20/21 12:30 133 H 101/74 11/20/21 12:15 134 H 104/68 11/20/21 12:00 133 H 88/65 L 11/20/21 11:45 120 H 104/54 L 11/20/21 11:30 119 H 97/67 L 11/20/21 11:15 122 H 96/79 L 11/20/21 11:00 115 H 107/77 11/20/21 10:45 122 H 97/66 L 11/20/21 10:30 114 H 88/69 L 11/20/21 10:18 108 H 92/70 L 11/20/21 10:15 111 H 87/74 L 11/20/21 10:00 112 H 108/74 11/20/21 09:50 37.1 C 106 H 11/20/21 09:00 37.2 C 105 H 18 99/63 L 97 11/20/21 04:44 37.1 C 96 H 16 96/65 L 96 Laboratory Results 11/20/21 04:24 11/20/21 11/20/21 04:24 04:24 WBC 20.98 H RBC 2.63 L MCV 102.3 H MCH 33.5 MCHC 32.7 RDW Std Deviation 74.5 H RDW Coeff of Christine 20.8 H Plt Count 105 L MPV 12.2 H Phosphorus 2.6 Albumin 2.6 L (1) Anemia Anemia type: unspecified type Qualified Code(s): D64.9 - Anemia, unspecified (2) Cirrhosis of liver Ascites presence: with ascites Hepatic cirrhosis type: unspecified hepatic cirrhosis Qualified Code(s): K74.60 - Unspecified cirrhosis of liver; R18.8 - Other ascites
--- NOTE | 2021-11-20 15:41 | Ultrasound Report ---
ABDOMINAL ULTRASOUND, RIGHT UPPER QUADRANT HISTORY: gb sludge/stones, h/o cirrhosis. COMPARISON: Abdomen and pelvis CT 11/17/2021. FINDINGS: Pancreas: Obscured by overlying bowel gas. Liver: The liver is echogenic consistent with fatty change. Enlarged measuring 24 cm in length. Trace perihepatic ascites. Gallbladder: Multiple small stones and sludge within the gallbladder. Gallbladder wall is at the uppe r limits of normal measuring 3 mm. This is likely due to the patient's edematous state. The gallbladd er is not distended. Negative sonographic Parnell sign. CBD: 6 mm. Right kidney: No hydronephrosis. IMPRESSION: 1. Multiple small stones and sludge within the gallbladder. 2. Hepatomegaly demonstrating fatty change. 3. Trace perihepatic ascites. ACT 112: Negative or not required by law. Electronically signed by: Jose L Gold M.D. 11/20/2021 3:39 PM
[2021-11-20] MEDS ORDERED: LACTATED RINGER'S 500 ML IV ONE (16:17)
[2021-11-20 16:49] LABS: Hematocrit (blood only) 29.6 % (37-47); Hemoglobin 9.8 g/dL (12.0-16.0); Mean Corpuscular Hemoglobin 33.4 pg (25-34); Mean Corpuscular Hgb Conc 33.1 g/dL (32-36); Mean Platelet Volume 12.5 fL (7.4-10.4); Nucleated RBC # (auto) 0.61 K/uL (0-0); Platelet Count 103 K/uL (130-400); RDW Standard Deviation 73.3 fL (36.4-46.3); Red Blood Count 2.93 M/uL (4.2-5.4); White Blood Count 30.67 K/uL (4.8-10.8)
--- NOTE | 2021-11-20 16:52 | XRay Report ---
KUB CLINICAL HISTORY: Abdominal pain. COMPARISON STUDY: CT of the abdomen and pelvis November 17, 2021. FINDINGS: Suspected right body wall edema is noted. Central venous catheter is partially imaged. Ther e is no radiographic evidence for a bowel obstruction. Bowel gas pattern is within normal limits with multiple prominent loops of small bowel. IMPRESSION: No radiographic evidence for a bowel obstruction. ACT 112: Negative or not required by law. Electronically signed by: Vitor Rodriguez M.D. 11/20/2021 4:50 PM
[2021-11-20 17:16] LABS: Est GFR (African American) 18.9 ml/min; Est GFR (Non-African American) 16.3 ml/min
[2021-11-20 17:17] LABS: Calcium 7.6 mg/dl (8.5-10.1); Potassium 3.3 mmol/L (3.5-5.1)
[2021-11-20] MEDS ORDERED: LACTATED RINGER'S 1,000 ML IV ONE (17:43)
[2021-11-20] MEDS ORDERED: LACTATED RINGER'S 1,000 ML IV SCH (17:45)
[2021-11-20 18:53] LABS: Adenovirus F 40/41 PCR Not Detected (NotDetected); Astrovirus PCR Not Detected (NotDetected); Campylobacter PCR Not Detected (NotDetected); Clostridium diff Toxin A/B PCR Not Detected (NotDetected); Cyclospora cayetanensis PCR Not Detected (NotDetected); Entamoeba histolytica PCR Not Detected (NotDetected); Enteroaggregative E.coli(EAEC) Not Detected (NotDetected); Enteropathogenic E.coli (EPEC) Not Detected (NotDetected); Enterotoxigenic E.coli (ETEC) Not Detected (NotDetected); Giardia lamblia PCR Not Detected (NotDetected); Norovirus GI/GII PCR Not Detected (NotDetected); Plesiomonas shigelloides PCR Not Detected (NotDetected); Rotavirus A PCR Not Detected (NotDetected); Salmonella PCR Not Detected (NotDetected); Sapovirus PCR Not Detected (NotDetected); Shiga-like Toxin E.coli (STEC) Not Detected (NotDetected); Shigella/Enteroinvasive E.coli Not Detected (NotDetected); Vibrio cholerae PCR Not Detected (NotDetected); Vibrio species PCR Not Detected (NotDetected); Yersinia enterocolitica PCR Not Detected (NotDetected)
[2021-11-20 19:28] LABS: Cryptosporidium PCR DETECTED (NotDetected)
[2021-11-20] MEDS ORDERED: POTASSIUM CHLORIDE CRTAB 20 MEQ TABCR PO STA (19:38)
[2021-11-20] MEDS ORDERED: AZITHROMYCIN 500 MG in DEXTROSE 5% 250 ML IV STA (20:04)
[2021-11-20] MEDS ORDERED: dexAMETHasone 4 MG in SYRINGE 0 ML IV ONE (20:15)
[2021-11-20] MEDS: rifAXIMin 550 MG TABLET PO SCH (20:46)
--- NOTE | 2021-11-20 23:37 | Communication Note ---
Date of Service: November 20, 2021 Made aware by RN of Cryptosporidium on stool OP study. Nitazoxanide not available inpatient as per pharmacist. IV Azithromycin 1 dose now. Will request AM provider to contact [facility] ID for further recommendations.
[2021-11-21 05:54] LABS: Hematocrit (blood only) 24.1 % (37-47); Hemoglobin 7.8 g/dL (12.0-16.0); Mean Corpuscular Hemoglobin 33.2 pg (25-34); Mean Corpuscular Hgb Conc 32.4 g/dL (32-36); Mean Corpuscular Volume 102.6 fL (80-100); Mean Platelet Volume 12.1 fL (7.4-10.4); Nucleated RBC # (auto) 0.18 K/uL (0-0); Nucleated RBC % (auto) 1.1 %; Platelet Count 88 K/uL (130-400); Prothrombin Time 19.2 Seconds (9.0-12.0); RDW Coefficient of Variation 21.2 % (11.5-14.5); RDW Standard Deviation 73.9 fL (36.4-46.3); Red Blood Count 2.35 M/uL (4.2-5.4); White Blood Count 16.54 K/uL (4.8-10.8)
[2021-11-21 06:43] LABS: Albumin Globulin Ratio 0.9 (0.9-2); Albumin Level 2.3 gm/dl (3.4-5.0); BUN Creatinine Ratio 3.4 (10-20); Bilirubin,Total 3.7 mg/dl (0.2-1.0); Calcium 7.1 mg/dl (8.5-10.1); Creatinine Clr Calc Pharmacy 18.6 ml/min; Est GFR (African American) 16.4 ml/min; Est GFR (Non-African American) 14.1 ml/min; Globulin 2.5 gm/dl (2.5-4.0); Potassium 4.4 mmol/L (3.5-5.1); Total Protein 4.8 gm/dl (6.0-8.3)
--- NOTE | 2021-11-21 08:29 | Surgery Progress Note ---
Date of Service November 21, 2021 Assessment & Plan (1) Cirrhosis: Plan: Patient resting this AM Labs show WBC 16 (30), she is afebrile Pt starting to have diarrhea and cultures are + for cryptosporidium. ID to be consulted for abx recs RUQ US negative for cholecystitis Pt is not a good surgical candidate given cirrhosis, ESRD on HD, and multiple other medical issues We will sign off, please call with any questions/concerns Admission and Anticipated Discharge Date Admission Date: November 17, 2021 Supervising Physician Co-Signing Physician Notes I personally saw and examined the patient with Maria Ines Dumas PA-C and agree with the assessment and plan. 41-year-old female with cirrhotic liver disease and end-stage renal disease with abdominal pain and leukocytosis Right upper quadrant ultrasound images and results reviewed, no signs of cholecystitis She did return Cryptosporidium in her stool which could certainly be a cause of her abdominal pain coupled with her abdominal ascites No plans for any surgical intervention on this patient, please call with any questions or concerns Subjective Patient sleeping. Results & Data ([facility]) Vital Signs (Past 12 Hours) Vital Signs Temp Pulse Pulse Resp BP BP Pulse Ox 11/21/21 04:00 36.8 C 99 H 19 102/67 100 11/21/21 00:27 37.2 C 104 H 18 82/57 L 95 11/21/21 00:00 104 H 11/20/21 22:00 113 H 16 96 11/20/21 21:00 118 H 20 88/56 L 90 PG Care Time/CCT Total # of Minutes Spent Total Time Spent with Patient: Total time spent is greater than 50% in coordination of care (as documented) at patient's floor/unit and/or counseling patient: Coding Level of Care Code 67896 Subseq Hosp Care Lvl 1 Diagnoses Cirrhosis K74.60
[2021-11-21] MEDS: rifAXIMin 550 MG TABLET PO SCH ×2 (09:08→19:51)
[2021-11-21] MEDS: FOLIC ACID 1 MG TAB PO SCH ×2 (09:08→19:51)
[2021-11-21] MEDS: predniSONE 5 MG TAB PO SCH (09:08)
[2021-11-21] MEDS: PANTOprazole 40 MG TAB PO SCH (09:08)
[2021-11-21] MEDS: buprenorphine HCL 8 MG SUBL SL SCH (09:10)
--- NOTE | 2021-11-21 10:18 | Gastroenterology Progress Note ---
Date of Service November 21, 2021 Assessment & Plan (1) Cirrhosis of liver: (2) Diarrhea: (3) Elevated LFTs: Plan: 41 year old female admitted w/ sepsis to the ICU, hx of liver disease, altered mental status, clinically improving. KUB overnight for rising WBC and pain yesterday without acute findings, stool study + crypto If pain returns, consider CT scan Continue supportive measures for crypto, given her immunocompromised state, for any prolonged symptoms or worsening symptoms can consider therapy w/ nitazoxanide Continue Xifaxan 550 BID If moving bowels well, no need for lactulose If not have daily BMs please add lactulose titrated to 2/3 BMs daily Complete full course of ABX for SBP coverage Hb stable no etoh less than 2g tylenol Continue supportive care call with questions In regards to her hypotension, this improved resolved. Agree with Albumin 25% 25 G 1-2 times daily. For persistent hypotension can consider midodrine. Recall GI as needed. Thank you for allowing us to participate in the care of this patient. Please call with any acute changes, questions or concerns. Please see addendum below with additional recommendation from my supervising physician. Admission and Anticipated Discharge Date Admission Date: November 17, 2021 Supervising Physician Co-Signing Physician Notes Late entry: Patient was seen and examined on 11/21 with SHAAN Malagon whose note reflects our findings and plan. Subjective Pt was seen and evaluated, chart reviewed More awake and oriented today Answering questions in short sentences Denies abd pain to me Has some back pain Moved large BM yesterday No black or bloody stool reported BP improving + stool for crypto Review of Systems Review of Systems: All systems reviewed & are unremarkable except as noted in HPI & below Physical Exam Constitutional: + ill appearing, + disheveled, cooperative and comfortable; no acute distress and not in distress Respiratory: normal respiratory effort, lungs clear to auscultation Gastrointestinal (Abdomen): Percussion/Palpation: abdomen soft and + ascites; abdomen nontender, no guarding and abdomen not rigid Skin: no rashes, warm and dry Results & Data ([facility]) Vital Signs (Past 12 Hours) Vital Signs Temp Pulse Pulse Resp BP BP Pulse Ox 11/21/21 08:00 80 14 11/21/21 07:00 82 13 11/21/21 04:00 36.8 C 99 H 19 102/67 100 11/21/21 00:27 37.2 C 104 H 18 82/57 L 95 11/21/21 00:00 104 H (1) Cirrhosis of liver Ascites presence: with ascites Hepatic cirrhosis type: unspecified hepatic cirrhosis Qualified Code(s): K74.60 - Unspecified cirrhosis of liver; R18.8 - Other ascites
--- NOTE | 2021-11-21 10:26 | Nephrology Progress Note ---
Date of Service November 21, 2021 Assessment & Plan (1) ESRD on hemodialysis: Plan: 11/20 HD c/b hypotension and tachycardia > no fluid removal. now dx w/ cryptosporidium. ongoing hypotension -We will plan for dialysis on Saturday -albumin prn -recommend midodrine 5 mg tid if no contraindication (2) Anemia: Plan: Patient with anemia of multifactorial etiology including chronic renal disease and GI bleed. She received 2 units of blood. -she had been on eliquis for clot around HD catheter tip; AC on hold for now - defer to primary service re eliquis risks/benefits; could consider coumadin -We will continue Epogen with dialysis (3) Cirrhosis of liver: Plan: Patient with decompensated cirrhosis complicated by ascites and likely varices. She is status post 5L paracentesis and and fluid cell count was normal. She is on empiric antibiotics. Admission and Anticipated Discharge Date Admission Date: November 17, 2021 Subjective had 2.5L LR overnight d/t ongoing hypotension; cryptosporidium + >> anti parasitic not on formulary >>> has [facility] ID c/s pending; RN reports pt smearing feces in her surroundings at times and only partially oriented Review of Systems Review of Systems: Unobtainable due to cognitive status and Other Physical Exam Constitutional: well developed, + frail appearing and cooperative; no acute distress Eyes: EOM intact bilaterally ENMT: Ears: no external ear abnormality Nose: no external nose abnormality Mouth: + dry oral mucous membranes Neck: no nuchal rigidity Respiratory: normal respiratory effort Auscultation: + diminished lung sounds and + crackles (crackles posteriorly) Gastrointestinal (Abdomen): Inspection/Auscultation: normal bowel sounds Percussion/Palpation: abdomen soft and + ascites; abdomen nontender Musculoskeletal: Extremities: + abnormal strength (generalized weakness) Skin: no rashes, warm and dry Neurologic: collier, fluent speech, no tremor Psychiatric: oriented to self and place but answers inappropriately Results & Data ([facility]) Vital Signs (Past 12 Hours) Vital Signs Temp Pulse Pulse Resp BP BP Pulse Ox 11/21/21 08:00 80 14 11/21/21 07:00 82 13 11/21/21 04:00 36.8 C 99 H 19 102/67 100 11/21/21 00:27 37.2 C 104 H 18 82/57 L 95 11/21/21 00:00 104 H Laboratory Results 11/21/21 05:27 11/21/21 05:27 (1) Anemia Anemia type: unspecified type Qualified Code(s): D64.9 - Anemia, unspecified (2) Cirrhosis of liver Ascites presence: with ascites Hepatic cirrhosis type: unspecified hepatic cirrhosis Qualified Code(s): K74.60 - Unspecified cirrhosis of liver; R18.8 - Other ascites
--- NOTE | 2021-11-21 15:38 | Electrocardiogram Report ---
Test Reason : Blood Pressure : / mmHG Vent. Rate : 131 BPM Atrial Rate : 131 BPM P-R Int : 126 ms QRS Dur : 070 ms QT Int : 274 ms P-R-T Axes : 054 016 099 degrees QTc Int : 404 ms Sinus tachycardia Nonspecific T wave abnormality Abnormal ECG When compared with ECG of 17-NOV-2021 16:44, No significant change was found Confirmed by Michael Mccarty ([id number]) on 11/21/2021 3:37:58 PM Referred By: REFERRED SELF Confirmed By:Michael Mccarty
--- NOTE | 2021-11-21 15:45 | Hospitalist Progress Note ---
Date of Service November 21, 2021 Assessment & Plan (1) Sepsis: Plan: Worsening sepsis 2/2 cryptosporidiosis. Questionable SBP, but with very clear peritoneal fluid just 24 hrs after starting abx and ongoing diarrhea consistent with crypto for the past 2 weeks, suspect source is more the GI infection. Will complete the antibiotic course to cover for SBP, however. 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 No antiparasitics on formulary. Cont supportive care and Xifaxan. IVF or albumin as needed. Replete electrolytes as needed. (3) SBP (spontaneous bacterial peritonitis): Plan: Suspected on admission but not proven. Complete empiric course of antibiotics. Awaiting ID recommendations prior to de-escalating antibiotics. (4) Cirrhosis of liver: Plan: Decompensated with development of ascites over the past two weeks. Worsening pain with distension and she was very uncomfortable. Recent flu, however, she currently doesn't have symptoms. Paracentesis with 5L taken off (11/18) with subsequent improvement in pain but TTP is still present with WBC increasing. GI would not recommend diuretics for her although she does still make urine per her report. No spironolactone/furosemide at discharge. 11/20: With increased WBC despite broad coverage, will switch to meropenem. Patient with elevated SOFA score and data states carbapenems may be superior to cephalosporins in more ill patients with SBP. Also consult surgery to evaluate abdominal pain. Trend CBC this afternoon. Oriented but will check ammonia--elevated to 43 11/21: resuscitated from a sepsis standpoint, +cryptosporidium in stool. No further BM. Awaiting ID consultation. (5) Anemia: Plan: Uncertain acute etiology, but chronically this is multifactorial. Similar presentation last year but she had melena at that time and was taking eliquis and coumadin simultaneously. No hematochezia at this time. Nephro recommends to stop Eliquis at this time so will not resume. Appropriate increase in H/H with blood transfusion and hemodynamically stable. Endoscopy last year on 08/2021 revealed esophageal plaques concerning for candidiasis and gastritis. No indication for endoscopy per GI at this time. Cont to trend H/H which is improved today. Epogen per GI. (6) Influenza A: Plan: recent history of this with course of Tamiflu as outpatient. Not symptomatic at this time. As she tested positive, will cont isolation in the hospital for now. (7) ESRD on hemodialysis: Plan: HD session prior to admission on Saturday, but missed two treatments prior to that. Ascites is likely a result of missed HD sessions. (8) Hypokalemia: Plan: Likely related to recent diarrhea and poor PO intake, resolved. Low K, low Na diet recommended in dialysis patient. (9) Hypophosphatemia: Plan: Repleted, patient not eating well. Will trend in am. Caution with supplements as patient is on a phosphate binder in setting of HD. (10) Chronic respiratory failure with hypoxia: Plan: Typically on 3LPM via NC at baseline. Rehab per PT who saw her today. 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 Patient should be set up for a more permanent fistula soon. (12) Heart failure with preserved ejection fraction: Plan: chronic, stable. Cont metoprolol, not on diuretics as outpatient. (13) DVT prophylaxis: Plan: SCDs/chemoprophylaxis contraindicated in setting of anemia with possible bleeding. Full code Dispo-cont PCU DO Darcy Dotson Hospitalist Admission and Anticipated Discharge Date Admission Date: November 17, 2021 Subjective 41 yo F presents with worsening pain and abdominal swelling 2/2 ascites and diarrhea x 2 weeks prior to arrival. Tolerating PO finally had a BM and stool sample was sent last mateo, showing cryptosporidium sepsis resuscitation performed overnight and abx broaded to Dapto and Merrem on 11/20. Much improved today after IVF resuscitation Not much of an appetite and RUQ pain still present Afebrile Review of Systems Review of Systems: All systems were reviewed and negative except as indicated above. Physical Exam Physical Exam: CONSTITUTIONAL: WNWD, vitals as above, NAD EYES: normal conjunctivae, + scleral icterus ENT: external ear and nose normal, oropharynx clear, poor dentition. NECK: trachea midline RESPIRATORY: clear to auscultation bilaterally, no crackles, rales or wheezes, normal respiratory effort CARDIOVASCULAR: reg rate and rhythm, S1 and 2 heard without murmurs, gallops or rubs, no JVD, no peripheral edema CHEST: inspection of chest was normal, HD catheter accessed in left anterior chest wall. GASTROINTESTINAL: soft, protuberance has improved, gen abdominal TTP worse in RUQ, there is pitting edema on the abdomen. stretch walker on skin, + guarding with palpation. MUSCULOSKELETAL: strength 5/5 throughout, head is normocephalic and atraumatic SKIN: warm and dry, jaundice NEUROLOGIC: CN 2-12 grossly intact, no sensory deficit, normal cognition, normal speech. No gross focal deficit. PSYCHIATRIC: Cooperative and oriented to person, place and time. Results & Data Results & Data ([facility]) Vital Signs (Past 12 Hours) Vital Signs Temp Pulse Resp BP Pulse Ox 11/21/21 11:12 21 112/78 11/21/21 11:02 95 H 13 94/67 L 11/21/21 11:00 92 H 12 11/21/21 10:00 101 H 21 11/21/21 09:16 36.8 C 99 H 19 99/75 L 96 11/21/21 09:00 92 H 15 11/21/21 08:00 80 14 11/21/21 07:00 82 13 11/21/21 04:00 36.8 C 99 H 19 102/67 100 Laboratory Results Short CBC 11/20/21 11/21/21 Range/Units 16:36 05:27 WBC 30.67 H* 16.54 H D (4.8-10.8) K/uL Hgb 9.8 L 7.8 L (12.0-16.0) g/dL Hct 29.6 L 24.1 L (37-47) % Plt Count 103 L 88 L (130-400) K/uL BMP 11/20/21 11/21/21 16:36 05:27 Sodium 135 L 134 L Potassium 3.3 L 4.4 D Chloride 100 102 Carbon Dioxide 23 26 BUN 10 13 Creatinine 3.37 H D 3.80 H D Glucose 76 117 H Calcium 7.6 L 7.1 L Liver Function 11/21/21 Range/Units 05:27 Total Bilirubin 3.7 H (0.2-1.0) mg/dl AST 40 H (13-39) U/L ALT 12 (7-52) U/L Alkaline Phosphatase 69 (34-104) U/L Albumin 2.3 L (3.4-5.0) gm/dl Medications Administered Current Inpatient Medications Acetaminophen (Acetaminophen 325 Mg Tab) 325 mg PO Q6H PRN PRN Reason: Mild Pain Stop: 12/17/21 22:27 Buprenorphine HCl (Buprenorphine Hcl 8 Mg Subl) 8 mg SL DAILY [facility] Stop: 12/18/21 08:59 Last Admin: 11/21/21 09:10 Dose: 8 mg Documented by: Folic Acid (Folic Acid 1 Mg Tab) 1 mg PO BID [facility] Stop: 12/18/21 08:59 Last Admin: 11/21/21 09:08 Dose: 1 mg Documented by: Daptomycin 325 mg/ Syringe 6.5 mls @ 3.25 mls/min IV Q48H [facility]; Protocol Stop: 11/30/21 11:59 Last Admin: 11/20/21 13:21 Dose: 3.25 mls/min Documented by: Meropenem 500 mg/ Syringe 10 mls @ 2 mls/min IV Q24H [facility]; Protocol Stop: 11/30/21 13:59 Last Admin: 11/20/21 15:06 Dose: 2 mls/min Documented by: Lorazepam (Lorazepam 0.5 Mg Tab) 0.5 mg PO TID PRN PRN Reason: Anxiety Stop: 12/17/21 22:27 Last Admin: 11/19/21 21:47 Dose: 0.5 mg Documented by: Miscellaneous Information (Daptomycin Consult Active) 1 ea N/A UD PRN PRN Reason: Consult Stop: 12/18/21 01:18 Miscellaneous Information (Meropenem Consult Active) 1 ea N/A UD PRN PRN Reason: Consult Stop: 12/20/21 11:42 Pantoprazole Sodium (Pantoprazole 40 Mg Tab) 40 mg PO QAM [facility] Stop: 12/18/21 08:59 Last Admin: 11/21/21 09:08 Dose: 40 mg Documented by: Prednisone (Prednisone 5 Mg Tab) 5 mg PO QAM [facility] Stop: 12/19/21 08:59 Last Admin: 11/21/21 09:08 Dose: 5 mg Documented by: Rifaximin (Rifaximin 550 Mg Tablet) 550 mg PO BID [facility] Stop: 12/20/21 20:59 Last Admin: 11/21/21 09:08 Dose: 550 mg Documented by: Trimethoprim/Sulfamethoxazole (Sulfamethoxazole/Trimethoprim Ds 800/160mg Tab) 1 tab PO [facility]Y Stop: 12/20/21 08:59 Last Admin: 11/20/21 11:48 Dose: Not Given Documented by: (1) Anemia Anemia type: unspecified type Qualified Code(s): D64.9 - Anemia, unspecified (2) Cirrhosis of liver Ascites presence: with ascites Hepatic cirrhosis type: unspecified hepatic cirrhosis Qualified Code(s): K74.60 - Unspecified cirrhosis of liver; R18.8 - Other ascites
[2021-11-21] MEDS: MEROPENEM 500 MG in SYRINGE 0 ML IV SCH (16:44)
[2021-11-22 06:16] LABS: Albumin Globulin Ratio 0.9 (0.9-2); Albumin Level 2.5 gm/dl (3.4-5.0); BUN Creatinine Ratio 4.6 (10-20); Calcium 7.5 mg/dl (8.5-10.1); Creatinine Clr Calc Pharmacy 15.6 ml/min; Est GFR (African American) 13.2 ml/min; Est GFR (Non-African American) 11.4 ml/min; Globulin 2.8 gm/dl (2.5-4.0); Magnesium 1.6 mg/dl (1.7-2.4); Phosphorus 2.3 mg/dl (2.5-4.9); Potassium 4.3 mmol/L (3.5-5.1); Total Protein 5.3 gm/dl (6.0-8.3)
[2021-11-22 06:29] LABS: Hematocrit (blood only) 26.7 % (37-47); Hemoglobin 8.6 g/dL (12.0-16.0); Mean Corpuscular Hemoglobin 33.2 pg (25-34); Mean Corpuscular Hgb Conc 32.2 g/dL (32-36); Mean Corpuscular Volume 103.1 fL (80-100); Mean Platelet Volume 12.6 fL (7.4-10.4); Nucleated RBC # (auto) 0.14 K/uL (0-0); Nucleated RBC % (auto) 0.7 %; Platelet Count 125 K/uL (130-400); Platelet Estimate Decreased (Normal); RDW Coefficient of Variation 20.9 % (11.5-14.5); RDW Standard Deviation 76.1 fL (36.4-46.3); Red Blood Count 2.59 M/uL (4.2-5.4); White Blood Count 20.18 K/uL (4.8-10.8)
[2021-11-22 07:02] LABS: INR 1.9 (0.9-1.1)
[2021-11-22] MEDS ORDERED: HEPARIN SOD (PORCINE) 1000 UNIT/ML IV ONE (07:51)
[2021-11-22] MEDS ORDERED: SODIUM CHLORIDE 0.9% 1000ML 1,000 ML IV PRN (07:51)
[2021-11-22] MEDS ORDERED: EPOETIN ALFA 20,000 UNITS/ML VIAL IV SCH (08:15)
[2021-11-22] MEDS ORDERED: ALBUMIN 25% 12.5 GM/50 ML VIAL IV SCH ×2 (08:15→10:00)
[2021-11-22] MEDS: FOLIC ACID 1 MG TAB PO SCH ×2 (08:18→21:14)
[2021-11-22] MEDS: PANTOprazole 40 MG TAB PO SCH (08:19)
[2021-11-22] MEDS: predniSONE 5 MG TAB PO SCH (08:19)
[2021-11-22] MEDS: rifAXIMin 550 MG TABLET PO SCH ×2 (08:19→21:14)
[2021-11-22] MEDS: buprenorphine HCL 8 MG SUBL SL SCH (08:20)
--- NOTE | 2021-11-22 10:30 | Hospitalist Progress Note ---
Date of Service November 22, 2021 Assessment & Plan (1) Sepsis: Plan: Sepsis 2/2 cryptosporidiosis. WBCs are trending down. Questionable SBP, but with very clear peritoneal fluid just 24 hrs after starting abx and ongoing diarrhea consistent with crypto for the past 2 weeks, suspect source is more the GI infection. Will complete the antibiotic course to cover for SBP, however. 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 No antiparasitics on formulary. Cont supportive care and Xifaxan. IVF or albumin as needed. Replete electrolytes as needed. (3) SBP (spontaneous bacterial peritonitis): Plan: Suspected on admission but not proven. Complete empiric course of antibiotics. Awaiting ID recommendations prior to de-escalating antibiotics. (4) Cirrhosis of liver: Plan: Decompensated with development of ascites over the past two weeks. Worsening pain with distension and she was very uncomfortable. Recent flu, however, she currently doesn't have symptoms. Paracentesis with 5L taken off (11/18) with subsequent improvement in pain but TTP is still present with WBCs still elevated. GI did not recommend diuretics for her although she does still make urine per her report. No spironolactone/furosemide at discharge. 11/20: With increased WBC despite broad coverage, now on meropenem. Patient with elevated SOFA score and data states carbapenems may be superior to cephalosporins in more ill patients with SBP. Surgery saw patient and signed off, GI signed off too. 11/21: resuscitated from a sepsis standpoint, +cryptosporidium in stool. No further BM. Awaiting ID consultation. (5) Anemia: Plan: Uncertain acute etiology, but likely multifactorial. Similar presentation last year but she had melena at that time and was taking eliquis and coumadin simultaneously. No hematochezia at this time. Nephro recommends to stop Eliquis at this time so will not resume. Appropriate increase in H/H with blood transfusion and hemodynamically stable. Endoscopy last year on 08/2021 revealed esophageal plaques concerning for candidiasis and gastritis. No indication for endoscopy per GI at this time. Cont to trend H/H which is improved today. Epogen per GI. (6) Influenza A: Plan: recent history of this with course of Tamiflu as outpatient. Not symptomatic at this time. As she tested positive, will cont isolation in the hospital for now. (7) ESRD on hemodialysis: Plan: HD session prior to admission on Saturday, but missed two treatments prior to that. Ascites is likely a result of missed HD sessions. (8) Hypokalemia: Plan: Likely related to recent diarrhea and poor PO intake, resolved. Low K, low Na diet recommended in dialysis patient. (9) Hypophosphatemia: Plan: Repleted, patient not eating well. Will trend in am. Caution with supplements as patient is on a phosphate binder in setting of HD. (10) Chronic respiratory failure with hypoxia: Plan: Typically on 3LPM via NC at baseline. Rehab per PT who saw her today. 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 Patient should be set up for a more permanent fistula soon. (12) Heart failure with preserved ejection fraction: Plan: chronic, stable. Cont metoprolol, not on diuretics as outpatient. (13) DVT prophylaxis: Plan: SCDs/chemoprophylaxis contraindicated in setting of anemia with possible bleeding. Full code Dispo-cont PCU status ROS-No Headache, No Visual Changes, No Nausea, No Vomiting, No Fever, No Chills, No Neck Pain or Stiffness, No Chest Pain, No Palpitations, No SOB, No JOHNS, No Cough, No Sputum, No Wheezing, No Abdominal Pain, No Diarrhea, No Hematemesis, No Hemoptysis, No Unexpected Weight Loss, No Flank pain, No Melena, No Hematochezia, No Frequency, No Urgency, No Burning, No Hematuria, No Rashes, No Diaphoresis. Appetite is Normal, Weak and tired. Physical Exam Gen-AAO x 3, NAD, Afebrile, Obese Head-NCAT, EOMI, PERRLA, Anicteric Sclera, No Posterior Pharyngeal Erythema Neck-Supple, No JVD, No Thyromegaly, No Masses, No LAD, No Bruits Lungs-Clear to Auscultation Bilaterally, No Rales, No Rhonchi, No Wheezing, No Crepitus Chest-No S4, +S1, +S2, No S3, No Murmurs, No Rubs, No Gallops, No Ectopy Abdomen-Soft, Bowel Sounds Present, Tender, Non Distended, No Hepatomegaly, No Splenomegaly, No Palpable Masses, No Rebound, No Rigidity, No Guarding Musculoskeletal-Full Range of Motion Bilaterally, No CVAT Extremities-No Cyanosis, No Clubbing, No Edema Nuero-Cranial Nerves II-XII grossly intact, Motor WNL, DTRs WNL, Strength WNL, Non Focal Psych-Normal Mood Admission and Anticipated Discharge Date Admission Date: November 17, 2021 Subjective 41 yo F presents with worsening pain and abdominal swelling 2/2 ascites and diarrhea x 2 weeks prior to arrival. Tolerating PO Stool sample was sent showing cryptosporidium sepsis resuscitation performed abx broaded to Dapto and Merrem on 11/20. Much improved after IVF resuscitation Still WO much of an appetite, RUQ pain still present Afebrile Results & Data Results & Data ([facility]) Vital Signs (Past 12 Hours) Vital Signs Temp Pulse Pulse Resp BP BP Pulse Ox 11/22/21 08:25 84 18 126/87 11/22/21 08:00 36.8 C 80 13 95 11/22/21 07:00 72 12 11/22/21 05:00 36.8 C 76 18 136/81 96 11/22/21 00:00 94 H 11/21/21 23:22 36.9 C 79 16 102/73 97 Laboratory Results Reviewed (1) Cirrhosis of liver Ascites presence: with ascites Hepatic cirrhosis type: unspecified hepatic cirrhosis Qualified Code(s): K74.60 - Unspecified cirrhosis of liver; R18.8 - Other ascites (2) Anemia Anemia type: unspecified type Qualified Code(s): D64.9 - Anemia, unspecified
[2021-11-22] MEDS: DAPTOmycin 325 MG in SYRINGE 0 ML IV SCH (14:19)
[2021-11-22] MEDS: MEROPENEM 500 MG in SYRINGE 0 ML IV SCH (14:19)
[2021-11-22] MEDS: POT PHOSPHATE MONOBASIC W/ SOD TAB PO SCH ×3 (14:21→21:13)
--- NOTE | 2021-11-22 18:14 | Dialysis Progress Note ---
Date of Service November 22, 2021 Assessment & Plan (1) ESRD on hemodialysis: Plan: 11/20 HD c/b hypotension and tachycardia > no fluid removal. now dx w/ cryptosporidium. ongoing hypotension -tolerating dialysis well so far today and on track for 1.5L UF -next HD on 11/24 or as clinical needs dictate -treat cryptosporidium/follow up ID recs -albumin prn -recommend midodrine 5 mg tid if no contraindication (2) Anemia: Plan: Patient with anemia of multifactorial etiology including chronic renal disease and GI bleed. She received 2 units of blood. -she had been on eliquis for clot around HD catheter tip; AC on hold for now - defer to primary service re eliquis risks/benefits; could consider coumadin -We will continue Epogen with dialysis (3) Cirrhosis of liver: Plan: Patient with decompensated cirrhosis complicated by ascites and likely varices. She is status post 5L paracentesis and and fluid cell count was normal. She is on empiric antibiotics. Admission and Anticipated Discharge Date Admission Date: November 17, 2021 Subjective seen on dialysis at about 1300; ID did evaluate pt today; pt endorses some periumbilical abd pain; thinks her diarrhea a bit better; she does have some confusion and weakness still; some issues w/ recall during interivew Review of Systems Review of Systems: All systems reviewed & are unremarkable except as noted in Subjective Physical Exam Constitutional: well developed, + frail appearing and cooperative; no acute distress Eyes: EOM intact bilaterally ENMT: Ears: no external ear abnormality Nose: no external nose abnormality Mouth: + dry oral mucous membranes Neck: no nuchal rigidity Respiratory: normal respiratory effort Auscultation: + diminished lung sounds and + crackles (crackles posteriorly) Gastrointestinal (Abdomen): Inspection/Auscultation: normal bowel sounds Percussion/Palpation: abdomen soft and + ascites; abdomen nontender Musculoskeletal: Extremities: + abnormal strength (generalized weakness) Skin: no rashes, warm and dry + jaundice Neurologic: generalized weakness; fluent but limited speech Results & Data ([facility]) Vital Signs (Past 12 Hours) Vital Signs Temp Pulse Pulse Resp BP BP Pulse Ox 11/22/21 15:06 37.1 C 94 H 20 124/82 100 11/22/21 13:50 36.7 C 75 122/82 11/22/21 13:30 70 121/82 11/22/21 13:15 77 121/92 11/22/21 13:00 73 119/82 11/22/21 12:45 76 114/83 11/22/21 12:30 85 114/80 11/22/21 12:15 75 119/81 11/22/21 12:00 76 112/76 11/22/21 11:45 75 132/88 11/22/21 11:30 73 122/82 11/22/21 11:15 74 118/77 11/22/21 11:00 79 101/77 11/22/21 10:45 79 117/79 11/22/21 10:30 74 120/75 11/22/21 10:15 80 118/77 11/22/21 09:53 36.8 C 99 H 11/22/21 08:25 84 18 126/87 11/22/21 08:00 36.8 C 80 13 95 11/22/21 07:00 72 12 Laboratory Results 11/22/21 05:12 11/22/21 05:12 (1) Anemia Anemia type: unspecified type Qualified Code(s): D64.9 - Anemia, unspecified (2) Cirrhosis of liver Ascites presence: with ascites Hepatic cirrhosis type: unspecified hepatic cirrhosis Qualified Code(s): K74.60 - Unspecified cirrhosis of liver; R18.8 - Other ascites
[2021-11-22] MEDS: LACTULOSE SYRUP 20 GM/30 ML UDC PO SCH ×2 (21:13→21:37)
[2021-11-22] MEDS: MAGNESIUM OXIDE 400 MG TAB PO SCH (21:14)
[2021-11-23 06:32] LABS: INR 1.6 (0.9-1.1); Prothrombin Time 15.8 Seconds (9.0-12.0)
[2021-11-23 06:43] LABS: Hematocrit (blood only) 27.7 % (37-47); Hemoglobin 8.7 g/dL (12.0-16.0); Mean Corpuscular Hemoglobin 32.8 pg (25-34); Mean Corpuscular Hgb Conc 31.4 g/dL (32-36); Mean Corpuscular Volume 104.5 fL (80-100); Mean Platelet Volume 12.1 fL (7.4-10.4); Nucleated RBC # (auto) 0.15 K/uL (0-0); Nucleated RBC % (auto) 0.7 %; Platelet Count 99 K/uL (130-400); RDW Coefficient of Variation 21.5 % (11.5-14.5); RDW Standard Deviation 77.3 fL (36.4-46.3); Red Blood Count 2.65 M/uL (4.2-5.4); White Blood Count 21.21 K/uL (4.8-10.8)
[2021-11-23 06:49] LABS: Albumin Globulin Ratio 1.1 (0.9-2); Albumin Level 2.9 gm/dl (3.4-5.0); BUN Creatinine Ratio 3.4 (10-20); Bilirubin,Total 4.1 mg/dl (0.2-1.0); Calcium 7.6 mg/dl (8.5-10.1); Creatinine Clr Calc Pharmacy 22.2 ml/min; Est GFR (African American) 22.3 ml/min; Est GFR (Non-African American) 19.3 ml/min; Globulin 2.7 gm/dl (2.5-4.0); Magnesium 1.5 mg/dl (1.7-2.4); Phosphorus 3.2 mg/dl (2.5-4.9); Potassium 3.9 mmol/L (3.5-5.1); Total Protein 5.6 gm/dl (6.0-8.3)
[2021-11-23] MEDS: LACTULOSE SYRUP 20 GM/30 ML UDC PO SCH ×2 (07:49→21:44)
[2021-11-23] MEDS ORDERED: LOPERAMIDE HCL 2 MG CAP PO STA (07:54)
[2021-11-23] MEDS: PANTOprazole 40 MG TAB PO SCH (08:32)
[2021-11-23] MEDS: FOLIC ACID 1 MG TAB PO SCH ×2 (08:32→22:17)
[2021-11-23] MEDS: rifAXIMin 550 MG TABLET PO SCH ×2 (08:32→22:17)
[2021-11-23] MEDS: predniSONE 5 MG TAB PO SCH (08:33)
[2021-11-23] MEDS: MAGNESIUM OXIDE 400 MG TAB PO SCH ×2 (08:33→22:17)
[2021-11-23] MEDS: POT PHOSPHATE MONOBASIC W/ SOD TAB PO SCH ×4 (08:33→22:17)
[2021-11-23] MEDS: buprenorphine HCL 8 MG SUBL SL SCH (08:35)
--- NOTE | 2021-11-23 09:47 | Hospitalist Progress Note ---
Date of Service November 23, 2021 Assessment & Plan (1) Sepsis: Plan: Sepsis 2/2 cryptosporidiosis. WBCs are trending down. Questionable SBP, but with very clear peritoneal fluid just 24 hrs after starting abx and ongoing diarrhea consistent with crypto for the past 2 weeks, suspect source is more the GI infection. Will start Nitazoxanide today for 14 days, Add Imodium, Increase diet. 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 IVF or albumin as needed. Replete electrolytes as needed. As above (3) SBP (spontaneous bacterial peritonitis): Plan: Suspected on admission but not proven. Off abx in favor of antiparasitic (4) Cirrhosis of liver: Plan: Decompensated with development of ascites over the past two weeks. Worsening pain with distension and she was very uncomfortable. Recent flu, however, she currently doesn't have symptoms. Paracentesis with 5L taken off (11/18) with subsequent improvement in pain but TTP is still present with WBCs still elevated. GI did not recommend diuretics for her although she does still make urine per her report. No spironolactone/furosemide at discharge. 11/20: With increased WBC despite broad coverage, now off abx. Surgery saw patient and signed off, GI signed off too. 11/21: resuscitated from a sepsis standpoint, +cryptosporidium in stool. (5) Anemia: Plan: Uncertain acute etiology, but likely multifactorial. Similar presentation last year but she had melena at that time and was taking eliquis and coumadin simultaneously. No hematochezia at this time. Nephro recommends to stop Eliquis at this time so will not resume. Appropriate increase in H/H with blood transfusion and hemodynamically stable. Endoscopy last year on 08/2021 revealed esophageal plaques concerning for candidiasis and gastritis. No indication for endoscopy per GI at this time. Cont to trend H/H which is improved today. (6) Influenza A: Plan: recent history of this with course of Tamiflu as outpatient. Not symptomatic at this time. As she tested positive, will cont isolation in the hospital for now. (7) ESRD on hemodialysis: Plan: HD (8) Hypokalemia: Plan: Likely related to recent diarrhea and poor PO intake, resolved. Low K, low Na diet recommended in dialysis patient. (9) Hypophosphatemia: Plan: Repleted, patient not eating well. Will trend in am. Caution with supplements as patient is on a phosphate binder in setting of HD. (10) Chronic respiratory failure with hypoxia: Plan: Typically on 3LPM via NC at baseline. Rehab per PT. 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 Patient should be set up for a more permanent fistula soon. (12) Heart failure with preserved ejection fraction: Plan: chronic, stable. Cont metoprolol, not on diuretics as outpatient. (13) DVT prophylaxis: Plan: SCDs/chemoprophylaxis contraindicated in setting of anemia with possible bleeding. Full code Dispo-cont PCU status ROS-No Headache, No Visual Changes, No Nausea, No Vomiting, No Fever, No Chills, No Neck Pain or Stiffness, No Chest Pain, No Palpitations, No SOB, No JOHNS, No Cough, No Sputum, No Wheezing, No Abdominal Pain, + Diarrhea, No Hematemesis, No Hemoptysis, No Unexpected Weight Loss, No Flank pain, No Melena, No Hematochezia, No Frequency, No Urgency, No Burning, No Hematuria, No Rashes, No Diaphoresis. Appetite is Normal, Weak and tired. Physical Exam Gen-AAO x 3, NAD, Afebrile, Obese Head-NCAT, EOMI, PERRLA, Anicteric Sclera, No Posterior Pharyngeal Erythema Neck-Supple, No JVD, No Thyromegaly, No Masses, No LAD, No Bruits Lungs-Clear to Auscultation Bilaterally, No Rales, No Rhonchi, No Wheezing, No Crepitus Chest-No S4, +S1, +S2, No S3, No Murmurs, No Rubs, No Gallops, No Ectopy Abdomen-Soft, Bowel Sounds Present, Tender, Non Distended, No Hepatomegaly, No Splenomegaly, No Palpable Masses, No Rebound, No Rigidity, No Guarding Musculoskeletal-Full Range of Motion Bilaterally, No CVAT Extremities-No Cyanosis, No Clubbing, No Edema Nuero-Cranial Nerves II-XII grossly intact, Motor WNL, DTRs WNL, Strength WNL, Non Focal Psych-Normal Mood Admission and Anticipated Discharge Date Admission Date: November 17, 2021 Subjective Seen in room, lucid today, ID recs noted, antiparasitic med should arrive today, +Diarrhea Results & Data Results & Data ([facility]) Vital Signs (Past 12 Hours) Vital Signs Temp Pulse Pulse Resp BP Pulse Ox 11/23/21 08:20 36.8 C 11/23/21 03:51 37.2 C 102 H 18 113/78 94 11/23/21 00:00 107 H 11/22/21 23:38 37.3 C 102 H 20 112/76 95 (1) Anemia Anemia type: unspecified type Qualified Code(s): D64.9 - Anemia, unspecified (2) Cirrhosis of liver Ascites presence: with ascites Hepatic cirrhosis type: unspecified hepatic cirrhosis Qualified Code(s): K74.60 - Unspecified cirrhosis of liver; R18.8 - Other ascites
[2021-11-23] MEDS ORDERED: NITAZOXANIDE 500 MG TAB PO ONE (12:45)
[2021-11-23] MEDS: ACETAMINOPHEN 325 MG TAB PO PRN (17:33)
--- NOTE | 2021-11-23 17:36 | Nephrology Progress Note ---
Date of Service November 23, 2021 Assessment & Plan (1) ESRD on hemodialysis: Plan: 11/20 HD c/b hypotension and tachycardia > no fluid removal. she did tolerate 1.5L UF on 11/22 w/o issues. now dx w/ cryptosporidium adn started tx 11/23. ongoing hypotension -next HD on 11/24 or as clinical needs dictate -treat cryptosporidium/follow up ID recs >> wondering if others in her household such as 2 children under 10 yrs old may need evaluation here -albumin prn w/ HD -ordered midodrine 5 mg 30 - 60 min before HD -caution w/ neutraphos supplements but ok to give for now > check phos daily -started mag ox today bid > will monitor mag daily and how this affects diarrhea -her WBC are climbing again - if no improvement with antiparasitic, low threshold for blood cxs >>defer to Dr Ramirez to evaluate abd pain further as indicated care coordinated w/ Dr Ramirez (2) Anemia: Plan: Patient with anemia of multifactorial etiology including chronic renal disease and GI bleed. She received 2 units of blood. -she had been on eliquis for clot around HD catheter tip; AC on hold for now - defer to primary service re eliquis risks/benefits; could consider coumadin -We will continue Epogen with dialysis (3) Cirrhosis of liver: Plan: Patient with decompensated cirrhosis complicated by ascites and likely varices. She is status post 5L paracentesis and and fluid cell count was normal. She is on empiric antibiotics. Admission and Anticipated Discharge Date Admission Date: November 17, 2021 Subjective to start antiparasitic today. feeling a bit better though still w/ significant abdominal pain and generalized body aches Review of Systems Review of Systems: All systems reviewed & are unremarkable except as noted in Subjective Physical Exam Constitutional: well developed, + frail appearing and cooperative; no acute distress Eyes: EOM intact bilaterally ENMT: Ears: no external ear abnormality Nose: no external nose abnormality Mouth: + dry oral mucous membranes Neck: no nuchal rigidity Respiratory: normal respiratory effort Auscultation: + diminished lung sounds and + crackles (crackles posteriorly) Cardiovascular: Rate/Rhythm: + tachycardic Extremities: no edema Gastrointestinal (Abdomen): Inspection/Auscultation: normal bowel sounds Percussion/Palpation: + abdomen tender (diffusely and moreso than yesterday george periumbilical), abdomen soft and + ascites Musculoskeletal: Extremities: + abnormal strength (generalized weakness) Skin: no rashes, warm and dry + jaundice and + ecchymosis (scattered on legs) Psychiatric: Orientation: oriented to person and oriented to place (still somewhat confused) Results & Data ([facility]) Vital Signs (Past 12 Hours) Vital Signs Temp Pulse Resp BP Pulse Ox 11/23/21 15:00 105 H 13 104/68 96 11/23/21 11:30 36.9 C 11/23/21 08:20 36.8 C Laboratory Results 11/23/21 05:46 11/23/21 05:46 (1) Anemia Anemia type: unspecified type Qualified Code(s): D64.9 - Anemia, unspecified (2) Cirrhosis of liver Ascites presence: with ascites Hepatic cirrhosis type: unspecified hepatic cirrhosis Qualified Code(s): K74.60 - Unspecified cirrhosis of liver; R18.8 - Other ascites
[2021-11-23] MEDS ORDERED: MIDODRINE HCL 2.5 MG TAB PO SCH (17:45)
[2021-11-23] MEDS: NITAZOXANIDE 500 MG TAB PO SCH (22:17)
[2021-11-23] MEDS: LORazepam 0.5 MG TAB PO PRN (22:17)
[2021-11-24] MEDS ORDERED: ALBUMIN 25% 12.5 GM/50 ML VIAL IV ONE (07:00)
[2021-11-24] MEDS ORDERED: EPOETIN ALFA 20,000 UNITS/ML VIAL IV ONE (07:00)
[2021-11-24] MEDS ORDERED: SODIUM CHLORIDE 0.9% 1000ML 1,000 ML IV PRN (07:00)
[2021-11-24] MEDS ORDERED: ALBUMIN 25% 12.5 GM/50 ML VIAL IV SCH ×2 (07:00→07:01)
[2021-11-24] MEDS ORDERED: MIDODRINE HCL 2.5 MG TAB PO STA (08:49)
[2021-11-24 10:07] LABS: Hematocrit (blood only) 28.1 % (37-47); Hemoglobin 8.9 g/dL (12.0-16.0); Mean Corpuscular Hemoglobin 33.1 pg (25-34); Mean Corpuscular Hgb Conc 31.7 g/dL (32-36); Mean Corpuscular Volume 104.5 fL (80-100); Mean Platelet Volume 12.2 fL (7.4-10.4); Nucleated RBC # (auto) 0.09 K/uL (0-0); Nucleated RBC % (auto) 0.5 %; Platelet Count 133 K/uL (130-400); RDW Standard Deviation 77.2 fL (36.4-46.3); Red Blood Count 2.69 M/uL (4.2-5.4); White Blood Count 18.77 K/uL (4.8-10.8)
--- NOTE | 2021-11-24 10:07 | XRay Report ---
KUB HISTORY: worsening diffuse abdominal pain COMPARISON: KUB 11/20/2021. FINDINGS: Mildly dilated gas-filled loops of large and small bowel bowel throughout the mid abdomen. This has slightly progressed compared to the prior study and may represent a mild ileus. Centralizati on of the bowel loops consistent with ascites. There is diffuse body wall edema. No renal calculi. N o ureteral calculi. No pneumoperitoneum or pneumatosis. IMPRESSION: 1. Mildly dilated gas-filled loops of large and small bowel seen within the midabdomen which suggests a mild ileus. 2. Centralization of the bowel loops consistent with ascites. ACT 112: Negative or not required by law. Electronically signed by: Jose L Gold M.D. 11/24/2021 10:06 AM
--- NOTE | 2021-11-24 10:13 | Hospitalist Progress Note ---
Date of Service November 24, 2021 Assessment & Plan (1) Sepsis: Plan: Sepsis 2/2 cryptosporidiosis. WBCs are trending down. Questionable SBP, but with very clear peritoneal fluid just 24 hrs after starting abx and ongoing diarrhea consistent with crypto for the past 2 weeks, suspect source is more the GI infection. Nitazoxanide 13/14 days, Stop Imodium, NPO. 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 IVF or albumin as needed. Replete electrolytes as needed. As above (3) SBP (spontaneous bacterial peritonitis): Plan: Suspected on admission but not proven. Off abx in favor of antiparasitic (4) Cirrhosis of liver: Plan: Decompensated with development of ascites over the past two weeks. Worsening pain with distension. Recent flu, however, she currently doesn't have symptoms. Paracentesis with 5L taken off (11/18) with subsequent improvement in pain. GI did not recommend diuretics for her although she does still make urine per her report. No spironolactone/furosemide at discharge. 11/20: With increased WBC despite broad coverage, now off abx. Surgery saw patient and signed off, GI signed off too. 11/21: resuscitated from a sepsis standpoint, +cryptosporidium in stool. KUB today, Recalled GI, WBCs trending down, on antiparasitic (5) Anemia: Plan: Uncertain acute etiology, but likely multifactorial. Similar presentation last year but she had melena at that time and was taking eliquis and coumadin simultaneously. No hematochezia at this time. Nephro recommends to stop Eliquis at this time so will not resume. Appropriate increase in H/H with blood transfusion and hemodynamically stable. Endoscopy last year on 08/2021 revealed esophageal plaques concerning for candidiasis and gastritis. No indication for endoscopy per GI at this time. Cont to trend H/H which is improved today. (6) Influenza A: Plan: Recent history of this with course of Tamiflu as outpatient. Not symptomatic at this time. As she tested positive, will cont isolation in the hospital for now. (7) ESRD on hemodialysis: Plan: HD (8) Hypokalemia: Plan: Likely related to recent diarrhea and poor PO intake, resolved. Low K, low Na diet recommended in dialysis patient. (9) Hypophosphatemia: Plan: Repleted, patient not eating well. Will trend in am. Caution with supplements as patient is on a phosphate binder in setting of HD. (10) Chronic respiratory failure with hypoxia: Plan: Typically on 3LPM via NC at baseline. Rehab per PT. 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 Patient should be set up for a more permanent fistula soon. (12) Heart failure with preserved ejection fraction: Plan: chronic, stable. Cont metoprolol, not on diuretics as outpatient. (13) DVT prophylaxis: Plan: SCDs/chemoprophylaxis contraindicated in setting of anemia with possible bleeding. Full code Dispo-cont PCU status ROS-No Headache, No Visual Changes, No Nausea, No Vomiting, No Fever, No Chills, No Neck Pain or Stiffness, No Chest Pain, No Palpitations, No SOB, No JOHNS, No Cough, No Sputum, No Wheezing, + Abdominal Pain, Less Diarrhea, No Hematemesis, No Hemoptysis, No Unexpected Weight Loss, No Flank pain, No Melena, No Hematochezia, No Frequency, No Urgency, No Burning, No Hematuria, No Rashes, No Diaphoresis. Appetite is Normal, Weak and tired. Physical Exam Gen-AAO x 3, NAD, Afebrile, Obese Head-NCAT, EOMI, PERRLA, Anicteric Sclera, No Posterior Pharyngeal Erythema Neck-Supple, No JVD, No Thyromegaly, No Masses, No LAD, No Bruits Lungs-Clear to Auscultation Bilaterally, No Rales, No Rhonchi, No Wheezing, No Crepitus Chest-No S4, +S1, +S2, No S3, No Murmurs, No Rubs, No Gallops, No Ectopy Abdomen-Soft, Bowel Sounds Present, Tender, Non Distended, No Hepatomegaly, No Splenomegaly, No Palpable Masses, No Rebound, No Rigidity, No Guarding Musculoskeletal-Full Range of Motion Bilaterally, No CVAT Extremities-No Cyanosis, No Clubbing, No Edema Nuero-Cranial Nerves II-XII grossly intact, Motor WNL, DTRs WNL, Strength WNL, Non Focal Psych-Normal Mood Admission and Anticipated Discharge Date Admission Date: November 17, 2021 Subjective antiparasitic started 11/23. significant abdominal pain yesterday and a little worse today. Results & Data Results & Data ([facility]) Vital Signs (Past 12 Hours) Vital Signs Temp Pulse Resp BP Pulse Ox 11/24/21 08:00 36.7 C 103 H 22 123/79 100 11/24/21 03:17 36.8 C 92 H 24 118/78 96 11/24/21 00:31 36.6 C 94 H 20 108/75 95 Laboratory Results reviewed (1) Cirrhosis of liver Ascites presence: with ascites Hepatic cirrhosis type: unspecified hepatic cirrhosis Qualified Code(s): K74.60 - Unspecified cirrhosis of liver; R18.8 - Other ascites (2) Anemia Anemia type: unspecified type Qualified Code(s): D64.9 - Anemia, unspecified
[2021-11-24 10:47] LABS: Albumin Level 2.8 gm/dl (3.4-5.0); BUN Creatinine Ratio 3.5 (10-20); Bilirubin,Total 3.5 mg/dl (0.2-1.0); Calcium 6.8 mg/dl (8.5-10.1); Creatinine Clr Calc Pharmacy 16.3 ml/min; Est GFR (African American) 15.3 ml/min; Est GFR (Non-African American) 13.2 ml/min; Globulin 2.8 gm/dl (2.5-4.0); Magnesium 1.4 mg/dl (1.7-2.4); Phosphorus 5.2 mg/dl (2.5-4.9); Total Protein 5.6 gm/dl (6.0-8.3)
--- NOTE | 2021-11-24 10:57 | Gastroenterology Progress Note ---
Date of Service November 24, 2021 Assessment & Plan (1) Sepsis: Plan: 41 year old female admitted w/ sepsis to the ICU, hx of liver disease, altered mental status, clinically improving. KUB overnight for rising WBC and pain yesterday without acute findings, stool study + crypto Given ileus on KUB this AM now w/ worsening abdominal pain and new severe nausea would recommed CTAP be arranged w/ PO contrast. Please arrange CTAP w/ PO contrast Continue supportive measures and therapy w/ nitazoxanide Continue Xifaxan 550 BID If moving bowels well, no need for lactulose, if not have daily BMs please add lactulose titrated to 2/3 BMs daily Complete full course of ABX for SBP coverage no etoh, less than 2g tylenol Continue supportive care call with questions Will follow. Thank you for allowing us to participate in the care of this patient. Please call with any acute changes, questions or concerns. Please see addendum below with additional recommendation from my supervising physician. Admission and Anticipated Discharge Date Admission Date: November 17, 2021 Supervising Physician Co-Signing Physician Notes I performed a history and physical examination of the patient today, including specifically on physical exam - soft abdomen. I have discussed the patient's management with the advanced practitioner. Please refer to the nurse practitioner's note for the documented findings and plan of care. Abdominal pain and diarrhea, possible ileus, please obtain a CT scan abdomen with PO contrast. Subjective GI asked to evaluate for worsening abd pain. Stools + for crypto KUB this AM showing ileus She notes that she had onset of abd pain yesterday Today, this is worse. Generalized, severe, fullness, pressure but also sharp She notes about 30 minutes ago she became severely nauseated. Has no vomited. Persistent loose stools. No black or bloody output. Review of Systems Review of Systems: All systems reviewed & are unremarkable except as noted in HPI & below Physical Exam Constitutional: well nourished, + ill appearing, cooperative and comfortable; no acute distress Neck: trachea midline, no thyromegaly Respiratory: normal respiratory effort, lungs clear to auscultation Gastrointestinal (Abdomen): normal bowel sounds, soft, nontender, no hepatosplenomegaly Skin: no rashes, warm and dry Results & Data ([facility]) Vital Signs (Past 12 Hours) Vital Signs Temp Pulse Pulse Resp BP Pulse Ox 11/24/21 08:00 36.7 C 88 103 H 22 123/79 100 11/24/21 03:17 36.8 C 92 H 24 118/78 96 11/24/21 00:31 36.6 C 94 H 20 108/75 95 Laboratory Results 11/24/21 11/24/21 11/24/21 Range/Units 09:50 09:45 09:45 WBC (4.8-10.8) K/uL RBC (4.2-5.4) M/uL Hgb (12.0-16.0) g/dL Hct (37-47) % MCV (80-100) fL MCH (25-34) pg MCHC (32-36) g/dL RDW Std Deviation (36.4-46.3) fL RDW Coeff of Christine (11.5-14.5) % Plt Count (130-400) K/uL MPV (7.4-10.4) fL Absolute Nucleated RBC (0-0) K/uL Nucleated RBC % (auto) % Sodium 136 (136-145) mmol/L Potassium (3.5-5.1) mmol/L Chloride 98 (98-107) mmol/L Carbon Dioxide 27 (21-32) mmol/L Anion Gap 11 (3-11) BUN 14 (6-23) mg/dl Creatinine 4.01 H D (0.6-1.2) mg/dl Est Cr Clr Drug Dosing 16.3 ml/min Est GFR ( Amer) 15.3 ml/min Est GFR (Non-Af Amer) 13.2 ml/min BUN/Creatinine Ratio 3.5 L (10-20) Glucose 87 (70-99(Fasting)) mg/dl Calcium 6.8 L (8.5-10.1) mg/dl Ionized Calcium Pending Phosphorus 5.2 H D (2.5-4.9) mg/dl Magnesium 1.4 L (1.7-2.4) mg/dl Total Bilirubin 3.5 H (0.2-1.0) mg/dl AST (13-39) U/L ALT 11 (7-52) U/L Alkaline Phosphatase 84 (34-104) U/L Ammonia Cancelled Total Protein 5.6 L (6.0-8.3) gm/dl Albumin 2.8 L (3.4-5.0) gm/dl Globulin 2.8 (2.5-4.0) gm/dl Albumin/Globulin Ratio 1.0 (0.9-2) 11/24/21 Range/Units 09:45 WBC 18.77 H (4.8-10.8) K/uL RBC 2.69 L (4.2-5.4) M/uL Hgb 8.9 L (12.0-16.0) g/dL Hct 28.1 L (37-47) % MCV 104.5 H (80-100) fL MCH 33.1 (25-34) pg MCHC 31.7 L (32-36) g/dL RDW Std Deviation 77.2 H (36.4-46.3) fL RDW Coeff of Christine 21.0 H (11.5-14.5) % Plt Count 133 (130-400) K/uL MPV 12.2 H (7.4-10.4) fL Absolute Nucleated RBC 0.09 H (0-0) K/uL Nucleated RBC % (auto) 0.5 % Sodium (136-145) mmol/L Potassium (3.5-5.1) mmol/L Chloride (98-107) mmol/L Carbon Dioxide (21-32) mmol/L Anion Gap (3-11) BUN (6-23) mg/dl Creatinine (0.6-1.2) mg/dl Est Cr Clr Drug Dosing ml/min Est GFR ( Amer) ml/min Est GFR (Non-Af Amer) ml/min BUN/Creatinine Ratio (10-20) Glucose (70-99(Fasting)) mg/dl Calcium (8.5-10.1) mg/dl Ionized Calcium Phosphorus (2.5-4.9) mg/dl Magnesium (1.7-2.4) mg/dl Total Bilirubin (0.2-1.0) mg/dl AST (13-39) U/L ALT (7-52) U/L Alkaline Phosphatase (34-104) U/L Ammonia Total Protein (6.0-8.3) gm/dl Albumin (3.4-5.0) gm/dl Globulin (2.5-4.0) gm/dl Albumin/Globulin Ratio (0.9-2)
[2021-11-24] MEDS: POT PHOSPHATE MONOBASIC W/ SOD TAB PO SCH ×3 (11:40→17:18)
[2021-11-24] MEDS: MAGNESIUM OXIDE 400 MG TAB PO SCH ×2 (11:41→20:44)
[2021-11-24] MEDS: rifAXIMin 550 MG TABLET PO SCH ×2 (11:41→20:44)
[2021-11-24] MEDS: buprenorphine HCL 8 MG SUBL SL SCH (11:41)
[2021-11-24] MEDS: predniSONE 5 MG TAB PO SCH (11:42)
[2021-11-24] MEDS: PANTOprazole 40 MG TAB PO SCH (11:42)
[2021-11-24] MEDS: NITAZOXANIDE 500 MG TAB PO SCH ×2 (11:43→20:44)
[2021-11-24] MEDS: FOLIC ACID 1 MG TAB PO SCH ×2 (11:44→20:44)
[2021-11-24] MEDS: LACTULOSE SYRUP 20 GM/30 ML UDC PO SCH ×3 (11:45→20:50)
[2021-11-24 13:15] LABS: Potassium 3.9 mmol/L (3.5-5.1)
--- NOTE | 2021-11-24 16:16 | CT Scan Report ---
CT abd pelvis oral con only CLINICAL HISTORY: Abdominal pain. Ileus. COMPARISON STUDY: CT of the abdomen and pelvis November 17, 2021. TECHNIQUE: Axial images of the abdomen and pelvis were obtained without IV contrast. Oral contrast wa s administered. Automated exposure control was utilized for the study. A dose lowering technique was utilized adhering to the principles of ALARA. FINDINGS: Subpleural opacities within the lower lungs favor atelectasis. Central venous catheter is p artially imaged. No pneumatosis, free air or portal venous gas is present. There is marked heterogene ity of the marrow with hypoenhancing foci. The findings favor multifocal fat, suboptimally assessed o n this unenhanced exam. The liver is cirrhotic. There is no biliary or pancreatic ductal dilatation. There are gallstones within the gallbladder. There is no convincing evidence for acute cholecystitis. Mild splenomegaly is noted. Unenhanced images of the adrenal glands, pancreas and kidneys are normal . There is no hydronephrosis. There is mild diffuse dilatation of the small bowel. No transition poin t is identified. Moderate abdominal ascites has decreased since CT of November 17, 2021. Note is now m padma of extensive subcutaneous fluid and stranding of the right lateral abdominal wall with skin thick ening. Otherwise, there is mild edema within the remainder of the body wall. No hyperdense fluid is i dentified to suggest hemorrhage. There is no retroperitoneal hematoma. L2, L3 and L5 compression frac tures are similar to prior CT of November 17, 2021. The L2 fracture is new since CT of August 29 1. There are small collaterals. IMPRESSION: 1. Mild dilatation of the small bowel without transition point. The findings favor an ileus. 2. Moderate abdominal and pelvic ascites, decreased since CT of November 17, 2021. Interval developmen t of extensive fluid and stranding within the right lateral abdominal wall with skin thickening. Give n recent paracentesis, this fluid may reflect ascites. Superimposed cellulitis cannot be excluded by CT. No hyperdense fluid to suggest hemorrhage. 3. Heterogeneity of the liver with hypodense foci. The findings favor multifocal fat, suboptimally as sessed on this unenhanced exam. Cirrhosis. Mild splenomegaly. Varices formation. ACT 112: Negative or not required by law. Electronically signed by: Vitor Rodriguez M.D. 11/24/2021 4:15 PM
--- NOTE | 2021-11-24 17:09 | Nephrology Progress Note ---
Date of Service November 24, 2021 Assessment & Plan (1) ESRD on hemodialysis: Plan: 11/20 HD c/b hypotension and tachycardia > no fluid removal. she did tolerate 1.5L UF on 11/22 w/o issues. now dx w/ cryptosporidium adn started tx 11/23. improving hypotension -for HD today -treat cryptosporidium/follow up ID recs >> wondering if others in her household such as 2 children under 10 yrs old may need evaluation here -albumin prn w/ HD -cont midodrine 5 mg 30 - 60 min before HD -caution w/ neutraphos supplements >> stopped these today d/t climbing phos -cont mag ox bid > recommend monitor mag daily and how this affects diarrhea -her WBC are climbing again - if no improvement with antiparasitic, low threshold for blood cxs >>defer to Dr Ramirez to evaluate abd pain further as indicated -- I did get KUB and inform him >> pt for CT abd/pelvis in wake of this care coordinated w/ Dr Ramirez (2) Anemia: Plan: Patient with anemia of multifactorial etiology including chronic renal disease and GI bleed. She received 2 units of blood. -she had been on eliquis for clot around HD catheter tip; AC on hold for now - defer to primary service re eliquis risks/benefits; could consider coumadin -We will continue Epogen with dialysis (3) Cirrhosis of liver: Plan: Patient with decompensated cirrhosis complicated by ascites and likely varices. She is status post 5L paracentesis and and fluid cell count was normal. She is on empiric antibiotics. Admission and Anticipated Discharge Date Admission Date: November 17, 2021 Subjective seen on rounds earlier today 0945. states was up part of night in tears d/t abd pain which is ongoing and painful if moves or bumps bed; ongoing diarrhea though milder Review of Systems Review of Systems: All systems reviewed & are unremarkable except as noted in Subjective Physical Exam Constitutional: well developed, + frail appearing and cooperative; no acute distress Eyes: EOM intact bilaterally ENMT: Ears: no external ear abnormality Nose: no external nose abnormality Mouth: + dry oral mucous membranes Neck: no nuchal rigidity Respiratory: normal respiratory effort Auscultation: + diminished lung sounds and + crackles (crackles posteriorly) Cardiovascular: Rate/Rhythm: + tachycardic Extremities: no edema Gastrointestinal (Abdomen): Inspection/Auscultation: normal bowel sounds Percussion/Palpation: + abdomen tender (diffusely and again moreso than yesterday ), abdomen soft and + ascites Musculoskeletal: Extremities: + abnormal strength (generalized weakness) Skin: no rashes, warm and dry + jaundice and + ecchymosis (scattered on legs) Neurologic: fluent speech, no tremor Psychiatric: Orientation: oriented to person and oriented to place (still somewhat confused) Results & Data ([facility]) Vital Signs (Past 12 Hours) Vital Signs Temp Pulse Pulse Resp BP Pulse Ox 11/24/21 16:00 88 11/24/21 15:27 36.6 C 85 20 120/83 96 11/24/21 11:48 37.1 C 101 H 20 123/79 99 11/24/21 08:00 36.7 C 88 103 H 22 123/79 100 Laboratory Results 11/24/21 09:45 11/24/21 10:55 (1) Anemia Anemia type: unspecified type Qualified Code(s): D64.9 - Anemia, unspecified (2) Cirrhosis of liver Ascites presence: with ascites Hepatic cirrhosis type: unspecified hepatic cirrhosis Qualified Code(s): K74.60 - Unspecified cirrhosis of liver; R18.8 - Other ascites
[2021-11-24] MEDS: LORazepam 0.5 MG TAB PO PRN (20:42)
[2021-11-24] MEDS: ACETAMINOPHEN 325 MG TAB PO PRN (22:07)
[2021-11-25] MEDS ORDERED: ZOLPIDEM TARTRATE 5 MG TAB PO PRN (02:09)
[2021-11-25] MEDS ORDERED: PIPERACILL/TAZOBAC CONSULT ACTIVE PRN (07:08)
[2021-11-25] MEDS ORDERED: CONSULT PHARMACY STA (07:09)
[2021-11-25] MEDS ORDERED: PIPERACILLIN/TAZOBACTAM 3.375 GM in DEXTROSE 5% 100 ML IV SCH (07:15)
--- NOTE | 2021-11-25 07:27 | Hospitalist Progress Note ---
Date of Service November 25, 2021 Assessment & Plan (1) Sepsis: Plan: Sepsis 2/2 cryptosporidiosis. WBCs are trending down. Questionable SBP, but with very clear peritoneal fluid just 24 hrs after starting abx and ongoing diarrhea consistent with crypto for the past 2 weeks, suspect source is more the GI infection. Nitazoxanide 3/14 days, NPO. 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 IVF or albumin as needed. Replete electrolytes as needed. As above (3) SBP (spontaneous bacterial peritonitis): Plan: Suspected on admission but not proven. On abx-WBCs trending down (4) Cirrhosis of liver: Plan: Decompensated with development of ascites. Worsening pain with distension. Recent flu, however, doesn't have symptoms. Paracentesis with 5L taken off (11/18) with subsequent improvement in pain. GI did not recommend diuretics for her although she does still make urine per her report. No spironolactone/furosemide at discharge. 11/20: With increased WBC despite broad coverage, now off abx. Surgery saw patient and signed off, GI signed off too. 11/21: resuscitated from a sepsis standpoint, +cryptosporidium in stool. KUB CT A&P c PO contrast only noted, GI back on case, WBCs trending down, on an tiparasitic and abx (5) Anemia: Plan: Uncertain acute etiology, but likely multifactorial. Similar presentation last year but she had melena at that time and was taking eliquis and coumadin simultaneously. No hematochezia at this time. Nephro recommends to stop Eliquis at this time so will not resume. Appropriate increase in H/H with blood transfusion and hemodynamically stable. Endoscopy last year on 08/2021 revealed esophageal plaques concerning for candidiasis and gastritis. No indication for endoscopy per GI at this time. Cont to trend H/H. (6) Influenza A: Plan: Recent history of this with course of Tamiflu as outpatient. Not symptomatic at this time. As she tested positive, will cont isolation in the hospital for now. (7) ESRD on hemodialysis: Plan: HD (8) Hypokalemia: Plan: Likely related to recent diarrhea and poor PO intake, resolved. Low K, low Na diet recommended in dialysis patient. (9) Hypophosphatemia: Plan: Also c Hypo Ca++, as per renal, patient NPO. (10) Chronic respiratory failure with hypoxia: Plan: Typically on 3LPM via NC at baseline. On 2L currently, Rehab per PT. 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 Patient should be set up for a more permanent fistula soon. (12) Heart failure with preserved ejection fraction: Plan: chronic, stable. Off metoprolol, not on diuretics as outpatient. on midodrine (13) DVT prophylaxis: Plan: SCDs/chemoprophylaxis contraindicated in setting of anemia with possible bleeding. Principal Research Economist eval for labial pain and swelling Discussed need for Liver/Kidney transplant eval when better Full code Dispo-cont PCU status ROS-No Headache, No Visual Changes, No Nausea, No Vomiting, No Fever, No Chills, No Neck Pain or Stiffness, No Chest Pain, No Palpitations, No SOB, No JOHNS, No Cough, No Sputum, No Wheezing, + Abdominal Pain, + Diarrhea, No Hematemesis, No Hemoptysis, No Unexpected Weight Loss, No Flank pain, No Melena, No Hematochezia, No Frequency, No Urgency, No Burning, No Hematuria, No Rashes, No Diaphoresis. Appetite is Normal, Weak and tired. c/o labial swelling Physical Exam Gen-AAO x 3, NAD, Afebrile, Obese Head-NCAT, EOMI, PERRLA, Anicteric Sclera, No Posterior Pharyngeal Erythema Neck-Supple, No JVD, No Thyromegaly, No Masses, No LAD, No Bruits Lungs-Clear to Auscultation Bilaterally, No Rales, No Rhonchi, No Wheezing, No Crepitus Chest-No S4, +S1, +S2, No S3, No Murmurs, No Rubs, No Gallops, No Ectopy Abdomen-Soft, Bowel Sounds Present, Tender, Non Distended, No Hepatomegaly, No Splenomegaly, No Palpable Masses, No Rebound, No Rigidity, No Guarding Musculoskeletal-Full Range of Motion Bilaterally, No CVAT Extremities-No Cyanosis, No Clubbing, No Edema Nuero-Cranial Nerves II-XII grossly intact, Motor WNL, DTRs WNL, Strength WNL, Non Focal Psych-Normal Mood Admission and Anticipated Discharge Date Admission Date: November 17, 2021 Subjective Patient seen, still c/o abd pain, CT done, + Ascites, Possible cellulitis, C/O Labial pain and swelling as well, Ileus on CT Results & Data Results & Data ([facility]) Vital Signs (Past 12 Hours) Vital Signs Temp Pulse Pulse Pulse Resp BP BP 11/25/21 03:07 36.6 C 89 18 108/73 11/24/21 23:11 36.7 C 99 H 20 115/80 11/24/21 23:00 96 H 11/24/21 20:33 36.7 C 93 H 18 115/79 11/24/21 20:05 36.8 C 96 H 118/83 11/24/21 19:40 100 H 122/84 11/24/21 19:20 102 H 122/85 Pulse Ox 11/25/21 03:07 98 11/24/21 23:11 98 11/24/21 23:00 11/24/21 20:33 100 11/24/21 20:05 11/24/21 19:40 11/24/21 19:20 Laboratory Results Reviewed (1) Cirrhosis of liver Ascites presence: with ascites Hepatic cirrhosis type: unspecified hepatic cirrhosis Qualified Code(s): K74.60 - Unspecified cirrhosis of liver; R18.8 - Other ascites (2) Anemia Anemia type: unspecified type Qualified Code(s): D64.9 - Anemia, unspecified
[2021-11-25 07:37] LABS: Magnesium 1.6 mg/dl (1.7-2.4)
[2021-11-25] MEDS: predniSONE 5 MG TAB PO SCH (07:52)
[2021-11-25] MEDS: MAGNESIUM OXIDE 400 MG TAB PO SCH ×2 (07:52→20:08)
[2021-11-25] MEDS: PANTOprazole 40 MG TAB PO SCH (07:52)
[2021-11-25] MEDS: NITAZOXANIDE 500 MG TAB PO SCH ×2 (07:52→20:08)
[2021-11-25] MEDS: rifAXIMin 550 MG TABLET PO SCH ×2 (07:52→20:08)
[2021-11-25] MEDS: MoRPHine SULFATE 4 MG/ML 1 ML CARP\\VIAL IV PRN ×2 (07:53→20:00)
[2021-11-25] MEDS: FOLIC ACID 1 MG TAB PO SCH ×2 (07:53→20:09)
[2021-11-25] MEDS ORDERED: PIPERACILLIN/TAZOBACTAM 3.375 GM in DEXTROSE 5% 100 ML IV ONE (08:00)
[2021-11-25] MEDS: LORazepam 0.5 MG TAB PO PRN ×2 (08:06→20:00)
[2021-11-25] MEDS: buprenorphine HCL 8 MG SUBL SL SCH (12:43)
--- NOTE | 2021-11-25 13:55 | Communication Note ---
Date of Service: November 25, 2021 GI brief note: CT A/P shows no obstruction, findings are consistent with ileus. recs: Continue supportive measures and therapy w/ nitazoxanide Continue Xifaxan 550 BID If moving bowels well, no need for lactulose, if not have daily BMs please add lactulose titrated to 2/3 BMs daily Complete full course of ABX for SBP coverage no etoh, less than 2g tylenol Continue supportive care call with questions
[2021-11-25] MEDS: PIPERACILLIN/TAZOBACTAM 3.375 GM in DEXTROSE 5% 100 ML IV SCH (16:00)
[2021-11-26] MEDS: PIPERACILLIN/TAZOBACTAM 3.375 GM in DEXTROSE 5% 100 ML IV SCH ×2 (05:00→16:38)
[2021-11-26 06:13] LABS: Hematocrit (blood only) 29.1 % (37-47); Hemoglobin 9.2 g/dL (12.0-16.0); Mean Corpuscular Hemoglobin 33.6 pg (25-34); Mean Corpuscular Hgb Conc 31.6 g/dL (32-36); Mean Corpuscular Volume 106.2 fL (80-100); Mean Platelet Volume 12.2 fL (7.4-10.4); Nucleated RBC # (auto) 0.07 K/uL (0-0); Nucleated RBC % (auto) 0.4 %; Platelet Count 133 K/uL (130-400); RDW Coefficient of Variation 21.2 % (11.5-14.5); RDW Standard Deviation 78.3 fL (36.4-46.3); Red Blood Count 2.74 M/uL (4.2-5.4); White Blood Count 16.25 K/uL (4.8-10.8)
[2021-11-26 06:59] LABS: Potassium 4.2 mmol/L (3.5-5.1)
[2021-11-26 07:00] LABS: Albumin Level 2.8 gm/dl (3.4-5.0); BUN Creatinine Ratio 2.9 (10-20); Bilirubin,Total 2.9 mg/dl (0.2-1.0); Calcium 6.8 mg/dl (8.5-10.1); Creatinine Clr Calc Pharmacy 17.4 ml/min; Est GFR (African American) 16.7 ml/min; Est GFR (Non-African American) 14.4 ml/min; Globulin 2.9 gm/dl (2.5-4.0); Magnesium 1.6 mg/dl (1.7-2.4); Total Protein 5.7 gm/dl (6.0-8.3)
[2021-11-26] MEDS: MAGNESIUM OXIDE 400 MG TAB PO SCH ×2 (08:25→21:39)
[2021-11-26] MEDS: FOLIC ACID 1 MG TAB PO SCH ×2 (08:25→21:39)
[2021-11-26] MEDS: PANTOprazole 40 MG TAB PO SCH (08:25)
[2021-11-26] MEDS: rifAXIMin 550 MG TABLET PO SCH ×2 (08:25→21:39)
[2021-11-26] MEDS: predniSONE 5 MG TAB PO SCH (08:25)
[2021-11-26] MEDS: LORazepam 0.5 MG TAB PO PRN (08:25)
[2021-11-26] MEDS: NITAZOXANIDE 500 MG TAB PO SCH ×2 (08:25→21:39)
--- NOTE | 2021-11-26 10:14 | Hospitalist Progress Note ---
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 WBCs are trending down. Questionable SBP, but with very clear peritoneal fluid just 24 hrs after starting abx and ongoing diarrhea consistent with crypto for the past 2 weeks, suspect source is more the GI infection. Nitazoxanide 3/14 days, NPO. 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 IVF or albumin as needed. Replete electrolytes as needed. As above (3) SBP (spontaneous bacterial peritonitis): Plan: Suspected on admission but not proven. On abx-WBCs trending down (4) Cirrhosis of liver: Plan: Decompensated with development of ascites. Worsening pain with distension. Recent flu, however, doesn't have symptoms. Paracentesis with 5L taken off (11/18) with subsequent improvement in pain. GI did not recommend diuretics for her although she does still make urine per her report. No spironolactone/furosemide at discharge. 11/20: With increased WBC despite broad coverage, now off abx. Surgery saw patient and signed off, GI signed off too. 11/21: resuscitated from a sepsis standpoint, +cryptosporidium in stool. KUB CT A&P c PO contrast only noted, GI back on case, WBCs trending down, on an tiparasitic and abx (5) Anemia: Plan: Uncertain acute etiology, but likely multifactorial. Similar presentation last year but she had melena at that time and was taking eliquis and coumadin simultaneously. No hematochezia at this time. Nephro recommends to stop Eliquis at this time so will not resume. Appropriate increase in H/H with blood transfusion and hemodynamically stable. Endoscopy last year on 08/2021 revealed esophageal plaques concerning for candidiasis and gastritis. No indication for endoscopy per GI at this time. Cont to trend H/H. (6) Influenza A: Plan: Recent history of this with course of Tamiflu as outpatient. Not symptomatic at this time. As she tested positive, will cont isolation in the hospital for now. (7) ESRD on hemodialysis: Plan: HD (8) Hypokalemia: Plan: Likely related to recent diarrhea and poor PO intake, resolved. Low K, low Na diet recommended in dialysis patient. (9) Hypophosphatemia: Plan: Also c Hypo Ca++, as per renal, patient NPO. (10) Chronic respiratory failure with hypoxia: Plan: Typically on 3LPM via NC at baseline. On 3L currently, Rehab per PT. 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 Patient should be set up for a more permanent fistula soon. (12) Heart failure with preserved ejection fraction: Plan: chronic, stable. Off metoprolol, not on diuretics as outpatient. on midodrine (13) DVT prophylaxis: Plan: SCDs/chemoprophylaxis contraindicated in setting of anemia with possible bleeding. Sample Grader eval for labial pain and swelling Discussed need for Liver/Kidney transplant eval when better Full code Dispo-cont PCU status ROS-No Headache, No Visual Changes, No Nausea, No Vomiting, No Fever, No Chills, No Neck Pain or Stiffness, No Chest Pain, No Palpitations, No SOB, No JOHNS, No Cough, No Sputum, No Wheezing, + Abdominal Pain, + Diarrhea, No Hematemesis, No Hemoptysis, No Unexpected Weight Loss, No Flank pain, No Melena, No Hematochezia, No Frequency, No Urgency, No Burning, No Hematuria, No Rashes, No Diaphoresis. Appetite is Normal, Weak and tired. c/o labial swelling Physical Exam Gen-AAO x 2, NAD, Afebrile, Obese Head-NCAT, EOMI, PERRLA, Anicteric Sclera, No Posterior Pharyngeal Erythema Neck-Supple, No JVD, No Thyromegaly, No Masses, No LAD, No Bruits Lungs-Clear to Auscultation Bilaterally, No Rales, No Rhonchi, No Wheezing, No Crepitus Chest-No S4, +S1, +S2, No S3, No Murmurs, No Rubs, No Gallops, No Ectopy Abdomen-Soft, Bowel Sounds Present, Tender, Non Distended, No Hepatomegaly, No Splenomegaly, No Palpable Masses, No Rebound, No Rigidity, No Guarding Musculoskeletal-Full Range of Motion Bilaterally, No CVAT Extremities-No Cyanosis, No Clubbing, No Edema Nuero-Cranial Nerves II-XII grossly intact, Motor WNL, DTRs WNL, Strength WNL, Non Focal Psych-Normal Mood Admission and Anticipated Discharge Date Admission Date: November 17, 2021 Subjective Patient seen, still c/o abd pain, CT done, + Ascites, Possible cellulitis, C/O Labial pain and swelling as well, Ileus on CT Results & Data Results & Data ([facility]) Vital Signs (Past 12 Hours) Vital Signs Temp Pulse Pulse Pulse Resp BP Pulse Ox 11/26/21 07:45 36.5 C 90 20 132/87 100 11/26/21 07:24 77 11/26/21 04:53 36.7 C 90 16 134/87 99 11/25/21 23:00 79 11/25/21 22:47 36.7 C 76 16 120/77 100 (1) Cirrhosis of liver Ascites presence: with ascites Hepatic cirrhosis type: unspecified hepatic cirrhosis Qualified Code(s): K74.60 - Unspecified cirrhosis of liver; R18.8 - Other ascites (2) Anemia Anemia type: unspecified type Qualified Code(s): D64.9 - Anemia, unspecified
[2021-11-26] MEDS: buprenorphine HCL 8 MG SUBL SL SCH (12:17)
[2021-11-26] MEDS ORDERED: NALOXONE HCL 0.4 MG/1 ML VIAL/CARP IV STA (16:58)
[2021-11-26] MEDS ORDERED: SEVELAMER HCL 800 MG TABLET PO SCH (17:00)
--- NOTE | 2021-11-26 17:32 | CT Scan Report ---
CT head/brain wo con CLINICAL HISTORY: altered Technique: Contiguous axial CT images of the head were acquired from the base of the skull to the tri kike without intravenous contrast administration. Images were viewed in brain, subdural and bone [facility]. Automated dose lowering techniques and/or adjustment according to patient size were utilized for this exam. Comparison: Comparison is made to CT head 11/17/2021 Findings: There is interval increase in size of the lateral and third ventricles. This is disproportionate to s ulcal enlargement. Imaged portions of the paranasal sinuses and mastoid air cells are clear. The orbits appear normal. There are no acute fractures of the calvaria or scalp swelling. Impression: Interval enlargement of the lateral and third ventricles, of unknown etiology. Given the lack of dila tion of the fourth ventricle, cerebral aqueduct ductal stenosis can be considered. ACT 112: Negative or not required by law. Electronically signed by: Kash Mcleod M.D. 11/26/2021 5:30 PM
[2021-11-26] MEDS ORDERED: VANCOMYCIN CONSULT ACTIVE PRN (18:39)
[2021-11-26 18:59] LABS: Hematocrit (blood only) 30.5 % (37-47); Hemoglobin 9.9 g/dL (12.0-16.0); Mean Corpuscular Hemoglobin 34.3 pg (25-34); Mean Corpuscular Volume 105.5 fL (80-100); Mean Platelet Volume 11.8 fL (7.4-10.4); Nucleated RBC # (auto) 0.08 K/uL (0-0); Nucleated RBC % (auto) 0.4 %; Platelet Count 158 K/uL (130-400); RDW Coefficient of Variation 21.3 % (11.5-14.5); RDW Standard Deviation 78.6 fL (36.4-46.3); Red Blood Count 2.89 M/uL (4.2-5.4); White Blood Count 21.47 K/uL (4.8-10.8)
[2021-11-26 19:00] LABS: Base Excess VBG 0.2 mEq/L; Oxygen Saturation VBG 70.4 %; pH VBG 7.38 (7.36-7.41)
[2021-11-26] MEDS ORDERED: ACYCLOVIR SOD IV SCH (19:30)
[2021-11-26] MEDS ORDERED: DEXTROSE 5% IV SCH (19:30)
[2021-11-26] MEDS ORDERED: VANCOMYCIN HCL 1,250 MG in SODIUM CHLORIDE 0.9% 250 ML IV ONE (19:30)
[2021-11-26 19:39] LABS: Creatinine Clr Calc Pharmacy 14.7 ml/min; Est GFR (African American) 13.5 ml/min; Est GFR (Non-African American) 11.7 ml/min; Potassium 5.4 mmol/L (3.5-5.1)
[2021-11-26 19:41] LABS: BUN Creatinine Ratio 3.4 (10-20); Globulin 3.2 gm/dl (2.5-4.0)
[2021-11-26 19:42] LABS: Albumin Globulin Ratio 0.9 (0.9-2)
[2021-11-26 19:44] LABS: Bilirubin,Total 3.2 mg/dl (0.2-1.0); Total Protein 6.2 gm/dl (6.0-8.3)
[2021-11-26 19:51] LABS: Mean Corpuscular Hgb Conc 32.5 g/dL (32-36)
[2021-11-26 20:03] LABS: Anisocytosis Present; Basophils # (auto) 0.01 K/uL (0-0.2); Echinocytes 1+; Eosinophils # (auto) 0.01 K/uL (0-0.5); Immature Granulocytes # (auto) 0.09 K/uL (0.00-0.02); Immature Granulocytes % (auto) 0.4 %; Lymphocytes # (auto) 0.64 K/uL (1.2-3.4); Monocytes # (auto) 0.63 K/uL (0.11-0.59); Monocytes % (auto) 2.9 %; Neutrophils # (auto) 20.09 K/uL (1.4-6.5); Neutrophils % (auto) 93.7 %; Poikilocytosis Present; Polychromasia 1+
--- NOTE | 2021-11-26 20:59 | Pharmacy Report ---
Pharmacy Abx Initial Consult - Date of Service November 26, 2021 - Pharmacy Dosing Scope Date of Consult: 11/26/21 Consultation requested by: Dr. Ramirez Pharmacy is consulted to initiate Vancomycin IV dosing therapy, order appropriate labs and adjust drug dose/frequency. - Subjective The patient is a 41 year old F admitted on 11/17/21 21:18. - Objective Height: 5 ft 4 in Weight: 65.1 kg Vital Signs (Past 12hrs): Vital Signs Temp Pulse Pulse Resp BP Pulse Ox 11/26/21 16:00 82 11/26/21 15:45 36.3 C L 84 20 127/88 98 11/26/21 11:27 36.4 C L 93 H 18 122/84 98 Lab Results (24hrs): Laboratory Tests (24 Hours) 11/26/21 11/26/21 11/26/21 18:48 18:48 05:55 WBC 21.47 H 16.25 H Neut # (Auto) 20.09 H Creatinine 4.45 H D Est Cr Clr Drug Dosing 14.7 11/26/21 05:55 WBC Neut # (Auto) Creatinine 3.74 H Est Cr Clr Drug Dosing 17.4 Micro Results: 11/18/21 Unknown Gram Stain - Final Peritoneal Fluid Aerobic and Anaerobic Culture - Final No growth 11/17/21 17:32 Aerobic Blood Culture - Final Blood No growth in Aerobic bottle after 5 days. Anaerobic Blood Culture - Final 11/17/21 17:34 Aerobic Blood Culture - Final Blood No growth in Aerobic bottle after 5 days. Anaerobic Blood Culture - Final - Risk Factors for Resistance * Current hospitalization > 5 days * Chronic dialysis within the past 30 days - Assessment & Plan Assessment Plan Vancomycin for treatment of meningitis Vancomycin IV * Loading dose: 1250 mg (19mg/kg) * Patient on HD M,W,F * Will get a random level will AM labs 11/27 Piperacillin/tazobactam * 3.375 g IV extended infusion every 12 hours for CrCl 20 mL/min or less and dialysis. Added Acyclovir 325mg q24 Pharmacy will continue to follow and will adjust dose/frequency as necessary. Nikolas jama.
[2021-11-26] MEDS ORDERED: STAT IV STA (21:23)
[2021-11-26] MEDS ORDERED: LORazepam 1 MG/2 ML VIAL IV STA ×2 (21:23→22:36)
[2021-11-26] MEDS ORDERED: levETIRAcetam 1,000 MG in 0.9 % SODIUM CHLORIDE 100 ML IV STA (21:33)
[2021-11-26] MEDS ORDERED: DEXTROSE 50% 50 ML SYRINGE IV STA (21:35)
[2021-11-26] MEDS ORDERED: INSULIN HUMAN REGULAR PER UNIT 10 UNITS in SYRINGE 9.9 ML IV STA (21:37)
[2021-11-26] MEDS ORDERED: CALCIUM GLUCONATE 10% 1,000 MG in DEXTROSE 5% 50 ML IV ONE (21:45)
[2021-11-26] MEDS: MAGNESIUM SULFATE / D5W 1 GM/100 ML BAG IV SCH (22:07)
[2021-11-26] MEDS ORDERED: LORazepam 1 MG/2 ML VIAL IV PRN (22:11)
--- NOTE | 2021-11-27 00:24 | Magnetic Resonance Report ---
MR brain wo con CLINICAL HISTORY: Altered mental status with a rightward gaze. COMPARISON STUDY: No previous studies for comparison. TECHNIQUE: Multiplanar multisequence images of the Brain were performed without IV contrast. Diffusi on weighted imaging and ADC mapping was also performed. FINDINGS: Extra-axial space: There is no evidence for a subdural hematoma, There are no extra-axial fluid shana ections. Ventricles and cisterns: The ventricles are mildly dilated bilaterally. There is no evidence for mid line shift or mass effect. Parenchyma: There is no evidence for an acute hemorrhage or infarct. No acute diffusion abnormalities are noted on diffusion weighted imaging or ADC mapping. There is normal galarza-white differentiation. The sulci and gyri appear normal without effacement. The midline structures are unremarkable. The po sterior fossa structures appear normal. There is no evidence for mass lesion. Osseous structures: The paranasal sinuses are well aerated. The mastoid air cells are well aerated. Soft tissues: No focal soft tissue abnormalities are identified. IMPRESSION: No acute intracranial abnormalities. However, there is mild dilatation of the patient's age suggesting the possibility of normal pressure hydrocephalus. ACT 112: Negative or not required by law. Electronically signed by: Sukumar Garcia M.D. 11/27/2021 12:22 AM
[2021-11-27] MEDS: MAGNESIUM SULFATE / D5W 1 GM/100 ML BAG IV SCH (00:35)
[2021-11-27] MEDS ORDERED: RAPID SEQUENCE INDUCTION BAG ONE (01:40)
[2021-11-27] MEDS ORDERED: STAT IV Infusion **Titration per Protocol STA ×2 (01:48→02:12)
[2021-11-27] MEDS ORDERED: NOREPINEPHRINE/D5W 8 MG/508 ML BAG IV SCH (02:00)
[2021-11-27] MEDS ORDERED: propofoL 1,000 MG/100 ML VIAL IV SCH (02:15)
[2021-11-27] MEDS ORDERED: PROPOFOL BOLUS FROM BAG IV PRN (02:15)
[2021-11-27] MEDS ORDERED: HYDROmorphone INJ 0.5 MG/0.5 ML SYR IV PRN (02:32)
[2021-11-27] MEDS ORDERED: ICU PROTOCOL FOR HYPERGLYCEMIA PRN (02:32)
--- NOTE | 2021-11-27 03:38 | Critical Care Consultation ---
Date of Consultation November 27, 2021 Assessment & Plan (1) Seizures: Patient is a complex 41-year-old female with an extended hospital stay which is recently been complicated by change in mental status. Patient had undergone CT followed by MRI today secondary to altered mental status. CT findings questionable for normal pressure hydrocephalus. Patient had witnessed seizure at MRI earlier in the evening. She received IV Ativan which did apollo her symptoms. Unfortunately, upon return to the floor, the patient remained unresponsive, but developed respiratory distress with significant tachypnea and hypoxia. Oxygen saturations were noted to be in the 60s at times. Upon my assessment at bedside, the patient has a RIGHT-sided gaze. Her jaw was clenched. She has blood from her mouth. I am concerned that she likely bit her tongue during initial seizure activity. Question if the patient is actively seizing at this time. Initial orders for 2 mg IV Versed provided nursing staff while awaiting ED provider to perform endotracheal intubation for airway protection. Versed seem to mildly help with symptoms. Concern at this point as the patient had possibly been experiencing subclinical seizures with progression towards overt seizure activity. She is certainly at risk given her liver dysfunction, metabolic derangements, recent sepsis, etc. After patient was intubated, orders placed for propofol drip. I did speak with [facility] who accepted patient in transfer. My concern is the patient likely requires 24-hour EEG monitoring. Patient transferred via [facility] to [facility] for ongoing management. I have personally spent 78 minutes of critical care time in the direct management of this patient. This is a life/limb threatening event. This includes time spent evaluating patient, direct bedside care, chart review, placing orders, interpretation of diagnostic studies, discussion with consultants, patient, and family members, as well as other required patient management activities. This time is exclusive of all separately billable procedures, and teaching time and separate from and in addition to any other critical care service time. History of Present Illness Attending Physician: Pato Ramirez DO History of Present Illness Patient is an unfortunate 41-year-old female with a significant past medical history of cirrhosis, hepatitis C, end-stage renal disease on hemodialysis Saturday/Saturday/Saturday, rapidly progressing glomerulonephritis, chronic DVT, CHF, anemia. She was recently admitted to this institution with profound diarrhea and septicemia. She had tested positive for Cryptosporidium in her stool and has actively been treated for that as well. Her mental status has declined over the last several hours. CT and MRI were performed. During MRI, the patient had a witnessed seizure. She received Ativan which did seem to help with her symptoms initially. Unfortunately, the patient returned to the floor and was noted to be hypoxic and tachypneic. Patient was again unresponsive. I was summoned to bedside for evaluation. On my assessment, the patient is obtunded and unresponsive to stimuli. She is rapidly breathing in a rhythmic pattern and with a RIGHT-sided fixed gaze. ED provider was summoned to performed emergent endotracheal intubation. I did attempt to suction the airway which was extremely bloody. Patient was bagged to saturations in the low 90s. Successfully intubated by ED physician. Transferred to the ICU for ongoing care. Allergies Allergy/AdvReac Type Severity Reaction Status Date / Time green pepper Allergy Severe Anaphylaxis Verified 11/17/21 19:41 mushroom Allergy Severe ANAPHYLAXIS Verified 11/17/21 19:41 onion Allergy Severe ANAPHYLAXIS Verified 11/17/21 19:41 fentanyl Allergy Intermediate Red, Hot, Unverified 11/17/21 19:41 Itchy Skin tramadol Allergy Mild RASH AND Verified 11/17/21 19:41 ITCHING ketorolac Allergy Unknown RASH Verified 11/17/21 19:41 Home Medications Medication Instructions Recorded Confirmed Type folic acid 1 mg tablet 1 mg PO BID 07/30/20 11/17/21 History buprenorphine HCl 8 mg sublingual 8 mg SUBLINGUAL DAILY 08/25/21 11/17/21 History tablet omeprazole 20 mg capsule,delayed 20 mg PO QAM 08/25/21 11/17/21 History release sevelamer carbonate 800 mg tablet 800 mg PO TIDM 08/25/21 11/17/21 History sulfamethoxazole 800 1 tab PO 3XWK 08/25/21 11/17/21 History mg-trimethoprim 160 mg tablet magnesium oxide 400 mg (241.3 mg 400 mg PO QAM 09/19/21 11/17/21 History magnesium) tablet prednisone 5 mg tablet 5 mg PO QAM 09/19/21 11/17/21 History lorazepam 0.5 mg tablet 0.5 mg PO TID PRN 10/11/21 11/17/21 History apixaban 2.5 mg tablet (Eliquis) 2.5 mg PO BID 11/17/21 11/17/21 History metoprolol succinate 25 mg 25 mg PO QAM 11/17/21 11/17/21 History tablet,extended release 24 hr Patient History Medical History Anemia Ascites Bacteremia due to Gram-positive bacteria Chronic deep vein thrombosis (DVT) of internal jugular vein Chronic respiratory failure with hypoxia Cirrhosis Cold agglutinin disease ESRD on dialysis Folate deficiency Heart failure with preserved ejection fraction Iron deficiency anemia Pleural effusion on left Pleural effusion on right Proteinuria RPGN (rapidly progressive glomerulonephritis) Smoker Surgical History History of bronchoscopy Hx of cardiac cath 08/15/2020[place] [facility] [place] Mother Lupus (systemic lupus erythematosus) Social History Smoking Status: Former smoker Tobacco Type: Cigarettes Cigarettes Per Day: 3; Hx Alcohol Use: No Hx Substance Use: No Preferred Language: Indonesian Communication Ability: Effective 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 GENERAL - 41-year-old female appearing much older than her stated age who is in no acute distress. Significant respiratory distress. SKIN -icteric HEAD - NC/AT. EYES -RIGHT-sided gaze with scleral icterus MOUTH/OROPHARYNX -bright red bloody sputum noted. Clenched jaw. NECK -RIGHT-sided gaze. Able to manipulate cervical spine, however she favors the RIGHT side. LUNGS -significant respiratory distress. Coarse breath sounds. CARDIAC - RRR with S1/S2. No murmur, rubs, or gallops appreciated. ABDOMEN - Abdominal contour obese. Soft to palpation. EXTREMITIES - No clubbing or peripheral cyanosis. No pretibial edema present. +3/5 radial and dorsalis pedis pulses palpated throughout. NEUROLOGIC -patient with rhythmic breathing and tachypneic rate. Fixed gaze to the RIGHT. Arms extended, but not rotated. Clenching of the jaw. Bleeding from the mouth. Results & Data Results & Data ([facility]) Vital Signs (Past 12 Hours) Vital Signs Temp Pulse Pulse Resp BP BP Pulse Ox 11/27/21 03:00 11/27/21 00:15 36.5 C 116 H 22 172/86 H 95 11/26/21 16:00 82 11/26/21 15:45 36.3 C L 84 20 127/88 98 Pulse Ox 11/27/21 03:00 98 11/27/21 00:15 11/26/21 16:00 11/26/21 15:45 Coding Level of Care Code Critical Care 1st 30-74 mins Diagnoses Seizures R56.9 Time Spent (min) 78
[2021-11-27 03:46] LABS: iSTAT Art Bld Gas pCO2 Correct 31 mmHg (35-46); iSTAT Art Bld Gas pH Corrected 7.407 (7.35-7.45); iSTAT Arterial Blood Gas HCO3 20 meg/L (19-24); iSTAT Arterial Blood Gas pCO2 31 mmHg (35-46); iSTAT Arterial Blood Gas pH 7.41 (7.35-7.45); iSTAT Arterial Blood Gas pO2 98 mmHg (80-95); iSTAT Arterial Blood Gas pO2 C 101; iSTAT Carbon Dioxide 21 mmol/L (24-31); iSTAT FiO2 55 %; iSTAT Hematocrit 31 % (37-47); iSTAT Hemoglobin 10.5 g/dl (12.0-16.0); iSTAT Potassium 4.5 mmol/L (3.3-5.0); iSTAT Site R Brachial; iSTAT Sodium 132 mmol/L (135-144)
[2021-11-27] MEDS ORDERED: MIDAZOLAM HCL 5 MG/ML VIAL IV ONE (03:59)
[2021-11-27] MEDS ORDERED: ETOMIDATE 2 MG/ML 20 ML VIAL IV ONE (03:59)
[2021-11-27] MEDS ORDERED: SUCCINYLCHOLINE CHLORIDE 20 MG/ML 10 ML VIAL IV ONE (03:59)
--- NOTE | 2021-11-27 05:09 | Emergency Department Note ---
ED Visit Note Endotracheal Intubation-I was called to the PCU by the admitting team. Indication: Respiratory failure. The patient was on 100% oxygen via BVM prior to the procedure. Preintubation O2 saturation was 89%. Suction, airway equipment, RSI drugs, respiratory equipment, and appropriate personnel were prepared prior to the initiation of the procedure. A time out was taken. Induction was performed with 20 mg of IV etomidate and 140 mg of IV succinylcholine. After observing the clinical benefit of the medications, the airway was easily visualized utilizing a glide scope. There were significant blood in the airway that was suctioned out. 7.5 size ETT tube was placed atraumatically to 24 cm using standard technique. The cuff inflated without signs of malfunction. There were bilateral breath sounds, positive colormetric change, no gastric sounds, and post procedure pulse oximetry was 90%. There were no complications. . : Cirrhosis of liver Qualifiers: Hepatic cirrhosis type: unspecified hepatic cirrhosis Ascites presence: with ascites Qualified Code(s): K74.60 - Unspecified cirrhosis of liver Hypotension Qualifiers: Hypotension type: unspecified hypotension type Qualified Code(s): I95.9 - Hypotension, unspecified
--- NOTE | 2021-11-27 06:51 | XRay Report ---
XR chest 1V portable HISTORY: 41 years-old Female s/p intubation acute respiratory failure COMPARISON: Chest radiograph 11/17/2020 TECHNIQUE: Portable AP view of the chest FINDINGS: Endotracheal tube overlies the midline, 1.5 cm superior to the iván. Dual lumen left subclavian darline tral venous catheter distal tip projects over the right atrium. Cardiac silhouette is enlarged. No pn eumothorax. Trace left and small right pleural effusions. Interstitial coarsening with progressive bi lateral airspace opacities, most pronounced within the right upper lobe and lung bases are new from p rior. Bones appear grossly intact. IMPRESSION: 1. Endotracheal tube overlies the midline, 1.5 cm superior to the iván. 2. Stable positioning of the left subclavian central venous catheter. 3. New multifocal mixed interstitial and alveolar opacities suggestive of pulmonary edema versus mult ifocal pneumonia. 4. Trace left and small right pleural effusions. ACT 112: Negative or not required by law. The above report was generated using voice recognition software. It may contain grammatical, syntax o r spelling errors. Electronically signed by: Abe Quan M.D. 11/27/2021 6:50 AM
[2021-11-27] MEDS ORDERED: SODIUM CHLORIDE 0.9% 1000ML 1,000 ML IV PRN (07:00)
--- NOTE | 2021-11-27 07:42 | Hospitalist Progress Note ---
Date of Service November 27, 2021 Assessment & Plan Admission and Anticipated Discharge Date Admission Date: November 17, 2021 Subjective Lat night patient had seizure episode when she was getting MRI scan. Heart rate went into 40's and then came up. Seen and examined patient. Mostly unresponsive but vitals are stable. Discussed with Neurology and loaded with iv keppra 1000mg and ordered keppra 500mg iv daily. After sometime patieny was somewhat agitated and a dose of iv ativan 1mg given. Notified patient's mother and significant other about the seizures. Later again around 1:30am patient became hypoxic , tachyapneic with some blood coming out of the mouth. Oxygen sats were in 70's. Seems having seizures. ICU was notified and patient was given versed and etomidate and succinyl choline and s/p intubation. MRI results came back showing normal pressure hydrocephalus.Discussed with Neurology and was advised to transfer to Tertiary care for possible status epilepticus and hydrocephalus for neurosurgery evaluation. Patent was earlier was started on iv acylovir , vancomycin and zosyn by morning team for possible meningitis/encephalitis and there was a plan for LP. Ammonia level was ok. Notified Significant other for transfer and he was ok with the plan. ICU contacted [place] and patient was life flighted. Results & Data Results & Data ([facility]) Vital Signs (Past 12 Hours) Vital Signs Temp Pulse Pulse Pulse Resp BP BP 11/27/21 04:52 36.5 C 130 H 22 11/27/21 03:48 22 11/27/21 03:30 133 H 22 97/79 L 11/27/21 03:15 135 H 22 11/27/21 03:00 136 H 22 97/75 L 11/27/21 02:45 131 H 22 11/27/21 02:30 127 H 22 96/72 L 11/27/21 02:15 22 11/27/21 02:12 117 H 22 103/73 11/27/21 00:15 36.5 C 116 H 22 172/86 H Pulse Ox Pulse Ox 11/27/21 04:52 98 11/27/21 03:48 11/27/21 03:30 98 11/27/21 03:15 98 11/27/21 03:00 98 98 11/27/21 02:45 98 11/27/21 02:30 99 11/27/21 02:15 99 11/27/21 02:12 93 11/27/21 00:15 95
--- NOTE | 2021-11-27 07:53 | Discharge Summary ---
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 Patient reports last week with 6 episodes of diarrhea daily, the past several days with numerous episodes and has been needing to wear depends. Reports stool is dark brown and red flecks. She reports nausea. Patient denies vomiting to this provider. She reports past couple of months of been having increased abdominal distention. She reports a large stretch lb to right side of abdomen is itchy and uncomfortable with palpation. Reports feels pressure to abdomen. Denies any other abdominal discomfort. Reports still makes urine however past couple of days she is unsure how much she is urinating or the color of her urine secondary to being unsure if she is urinating while she is having diarrhea bowel movements. States has had slight intermittent nonproductive cough. Denies any known fever or chills. She reports diffuse body aches with palpation of her body that has been ongoing. She denies any known ill contacts. Reports had 1 COVID-19 vaccine. Reports had influenza vaccine this season. She missed her dialysis on Saturday and Saturday however did go today. She believes she finished the course of dialysis. Denies BOOTH, dizziness, syncope, vision changes, neck pain, CP, increased SOB, orthopnea, palpitations, sore throat, choking, otalgia, rhinorrhea,extremity edema, rashes. Admission Exam Per Admitting Provider General: no acute distress, chronic ill appearing, appears older than stated age Head: normocephalic, atraumatic Eyes: PERRL, EOM's intact, conjunctiva non-injected, pale, anicteric ENT: normal inspection external ears, nose, mucous membranes moist Neck: supple, trachea midline Lungs: clear, no respiratory distress on current 3L NC, no wheezing/rhonchi/rales CV: tachycardia, rate 114, no pretibial edema Abd: +distended, firm, +stiae noted, normal BS, soft, non-tender to palpation Ext: no cyanosis, no calf tenderness Neuro: A&O x 3, no focal deficits noted, normal affect Skin: warm, dry, pale Principal Diagnosis Seizures Normal pressure hydrocephalus Sepsis 2/2 cryptosporidiosis Diarrhea Possible meningitis/encephalitis Discharge Data Allergies Allergy/AdvReac Type Severity Reaction Status Date / Time green pepper Allergy Severe Anaphylaxis Verified 11/17/21 19:41 mushroom Allergy Severe ANAPHYLAXIS Verified 11/17/21 19:41 onion Allergy Severe ANAPHYLAXIS Verified 11/17/21 19:41 fentanyl Allergy Intermediate Red, Hot, Unverified 11/17/21 19:41 Itchy Skin tramadol Allergy Mild RASH AND Verified 11/17/21 19:41 ITCHING ketorolac Allergy Unknown RASH Verified 11/17/21 19:41 Consultations 11/17/21 19:35 ED Decision to Admit Stat 11/17/21 22:28 Consult Gastroenterology Routine Consult Nephrology Routine 11/20/21 11:03 Consult General Surgery Routine 11/21/21 08:45 Consult Infectious Diseases Routine 11/24/21 10:06 Consult Gastroenterology Routine 11/25/21 07:10 Consult Gynecology Routine Ordered Studies 11/17/21 17:19 CT abd pelvis wo con Stat 11/17/21 17:49 CT head/brain wo con Stat 11/18/21 15:21 US paracentesis abd w/image Routine 11/20/21 12:22 US liver Routine 11/24/21 12:47 CT abd pelvis oral con only Urgent 11/26/21 16:55 CT head/brain wo con Stat 11/26/21 17:18 MR brain wo con Urgent Hospital Course (1) Seizures: (2) Sepsis: (3) 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 Heart rate went into 40's and then came up. Seen and examined patient. Mostly unresponsive but vitals are stable. Discussed with Neurology and loaded with iv keppra 1000mg and ordered keppra 500mg iv daily. After sometime patieny was somewhat agitated and a dose of iv ativan 1mg given. Notified patient's mother and significant other about the seizures. Later again around 1:30am patient became hypoxic , tachyapneic with some blood coming out of the mouth. Oxygen sats were in 70's. Seems having seizures. ICU was notified and patient was given versed and etomidate and succinyl choline and s/p intubation. MRI results came back showing normal pressure hydrocephalus.Discussed with Neurology and was advised to transfer to Tertiary care for possible status epilepticus and hydrocephalus for neurosurgery evaluation. Patent was earlier was started on iv acylovir , vancomycin and zosyn by morning team for possible meningitis/encephalitis and there was a plan for LP. Ammonia level and abg orderfed by Am team ok. Notified Significant other for transfer and he was ok with the plan. ICU contacted [place] and patient was life flighted. Last progress notes By Dr.Gary Ramirez: Addendum November 26, 2021 17:15 Called by the nurse the patient was unresponsive except to sternal rub. Went to see the patient and she is somnolent and not responding to any commands or verbal stimuli she does respond to noxious stimuli she moves both arms and legs. She has a rightward gaze and would not look to the left for me. She possibly has a stroke again to get a CT of her head, ABG, ammonia level, and possibly an MRI. Vital signs are stable her blood pressure did not shoot up during this episode. (1) Sepsis: Plan: Sepsis 2/2 cryptosporidiosis. WBCs are trending down. Questionable SBP, but with very clear peritoneal fluid just 24 hrs after starting abx and ongoing diarrhea consistent with crypto for the past 2 weeks, suspect source is more the GI infection. Nitazoxanide 3/14 days, NPO. 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 IVF or albumin as needed. Replete electrolytes as needed. As above (3) SBP (spontaneous bacterial peritonitis): Plan: Suspected on admission but not proven. On abx-WBCs trending down (4) Cirrhosis of liver: Plan: Decompensated with development of ascites. Worsening pain with distension. Recent flu, however, doesn't have symptoms. Paracentesis with 5L taken off (11/18) with subsequent improvement in pain. GI did not recommend diuretics for her although she does still make urine per her report. No spironolactone/furosemide at discharge. 11/20: With increased WBC despite broad coverage, now off abx. Surgery saw patient and signed off, GI signed off too. 11/21: resuscitated from a sepsis standpoint, +cryptosporidium in stool. KUB CT A&P c PO contrast only noted, GI back on case, WBCs trending down, on antiparasitic and abx (5) Anemia: Plan: Uncertain acute etiology, but likely multifactorial. Similar presentation last year but she had melena at that time and was taking eliquis and coumadin simultaneously. No hematochezia at this time. Nephro recommends to stop Eliquis at this time so will not resume. Appropriate increase in H/H with blood transfusion and hemodynamically stable. Endoscopy last year on 08/2021 revealed esophageal plaques concerning for candidiasis and gastritis. No indication for endoscopy per GI at this time. Cont to trend H/H. (6) Influenza A: Plan: Recent history of this with course of Tamiflu as outpatient. Not symptomatic at this time. As she tested positive, will cont isolation in the hospital for now. (7) ESRD on hemodialysis: Plan: HD (8) Hypokalemia: Plan: Likely related to recent diarrhea and poor PO intake, resolved. Low K, low Na diet recommended in dialysis patient. (9) Hypophosphatemia: Plan: Also c Hypo Ca++, as per renal, patient NPO. (10) Chronic respiratory failure with hypoxia: Plan: Typically on 3LPM via NC at baseline. On 2L currently, Rehab per PT. 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 Patient should be set up for a more permanent fistula soon. (12) Heart failure with preserved ejection fraction: Plan: chronic, stable. Off metoprolol, not on diuretics as outpatient. on midodrine Total Time Total Time Spent Total Time Spent (In Minutes): 40minutes Discharge Plan Discharge Items Patient Disposition: Transfer Acute Care Hospital Reason For Visit: HYPOTENSION Discharge Diagnosis: seizures, normal pressure hydrocepahus Activity: As commented below Activity Comment: bedrest for now Non-emergency contact: Primary Care Provider Call non-emergency contact if: you have any medication questions Follow-up/Referrals: Andre Siegel MD [Primary Care Provider] - Diet: Nothing by Mouth Addtl Attending Provider Instructions: s/p intubation iv keprra, iv acylovir, iv zosyn and iv vanco Pending Studies at Discharge: No Stand-Alone Forms: My [facility] Skilled Items Patient informed of condition?: No DNR: No Discharge Level of Care: Other Communicable Disease: No Discharge Prognosis: Other Lines: Peripheral IV Urinary Catheter: Yes Medications and DC Order Prescriptions: Continued folic acid 1 mg tablet 1 mg PO BID RF: 0 buprenorphine HCl 8 mg tablet, sublingual 8 mg SUBLINGUAL DAILY RF: 0 omeprazole 20 mg capsule,delayed release(DR/EC) 20 mg PO QAM RF: 0 sulfamethoxazole-trimethoprim 800-160 mg tablet 1 tab PO 3XWK RF: 0 sevelamer carbonate 800 mg tablet 800 mg PO TIDM RF: 0 prednisone 5 mg tablet 5 mg PO QAM RF: 0 magnesium oxide 400 mg (241.3 mg magnesium) Tablet 400 mg PO QAM RF: 0 metoprolol succinate 25 mg tablet extended release 24 hr 25 mg PO QAM RF: 0 Eliquis 2.5 mg tablet 2.5 mg PO BID RF: 0 lorazepam 0.5 mg tablet 0.5 mg PO TID PRN (Reason: Anxiety) RF: 0 Discharge Orders: Discharge Order (Routine); Ordered 11/27/21 Ordered By: Bud Cuba Admission Data Admit Date/Time: 11/17/21 21:18 Attending Provider: Pato Ramirez Admit Provider: Leopoldo Alonzo Primary Care Provider: Andre Siegel Other Providers: Leopoldo Alonzo ; Alyce Cintron ; Zonia Kim ; Skinny Rodriguez ; Barb Hemphill ; Jerald Hernandez ; Irlanda Woods ; Madison Narayan ; Franko Snow ; Alexandria Persaud ; Katarzyna Yadav ; Jaclyn Summers ; Christy Valle ; Maurilio Garcia ; Daly Candelario ; Gil Copeland ; Louisa Macias ; Shae Chapa ; Alexi Gomez ; Rosy Aguilar ; Haroldo Rosales ; Dago Barrow ; Silvestre Castle ; Dl Cordero I. ; Junaid Bruner II ; Rachael Rayo ; Lb Bro ; Agustin Pierre ; Manuel Walter ; Keisha Grossman ; Samantha Tomlin ; Evans Cr ; Torrey Pineda ; Kirk Montiel ; Ollie Mansfield ; Mely Truong ; Zulema Mitchell V. ; Gloria Genao ; Jenna Eaton ; Dona Martinez ; Briseyda Choi Other Interventions: Discharge Summary Assessment (RN) Last Done: 11/27/21 04:52
[2021-11-27] MEDS ORDERED: levETIRAcetam 500 MG in 0.9 % SODIUM CHLORIDE 100 ML IV SCH (09:00)
--- NOTE | 2021-11-27 10:28 | Electroencephalogram ---
EEG Procedure Note Date of Service November 27, 2021 Start / End Times Start Time: 750 End Time: [address] Ramirez History Acute change mental status with head and eye deviation to right and confusion question ongoing seizure activity Home Medication List Medication Instructions Recorded Confirmed Type folic acid 1 mg tablet 1 mg PO BID 07/30/20 11/17/21 History buprenorphine HCl 8 mg sublingual 8 mg SUBLINGUAL DAILY 08/25/21 11/17/21 History tablet omeprazole 20 mg capsule,delayed 20 mg PO QAM 08/25/21 11/17/21 History release sevelamer carbonate 800 mg tablet 800 mg PO TIDM 08/25/21 11/17/21 History sulfamethoxazole 800 1 tab PO 3XWK 08/25/21 11/17/21 History mg-trimethoprim 160 mg tablet magnesium oxide 400 mg (241.3 mg 400 mg PO QAM 09/19/21 11/17/21 History magnesium) tablet prednisone 5 mg tablet 5 mg PO QAM 09/19/21 11/17/21 History lorazepam 0.5 mg tablet 0.5 mg PO TID PRN 10/11/21 11/17/21 History apixaban 2.5 mg tablet (Eliquis) 2.5 mg PO BID 11/17/21 11/17/21 History metoprolol succinate 25 mg 25 mg PO QAM 11/17/21 11/17/21 History tablet,extended release 24 hr Inpatient Medication List Discontinued Medications Acetaminophen (Acetaminophen 325 Mg Tab) 325 mg PO Q6H PRN PRN Reason: Mild Pain Stop: 12/17/21 22:27 Last Admin: 11/24/21 22:07 Dose: 325 mg Documented by: [id number] Admin: 11/23/21 17:33 Dose: 325 mg Documented by: [id number] Buprenorphine HCl (Buprenorphine Hcl 8 Mg Subl) 8 mg SL DAILY [facility] Stop: 12/18/21 08:59 Last Admin: 11/26/21 12:17 Dose: 8 mg Documented by: [id number] Admin: 11/25/21 12:43 Dose: 8 mg Documented by: [id number] Admin: 11/24/21 11:41 Dose: 8 mg Documented by: [id number] Admin: 11/23/21 08:35 Dose: 8 mg Documented by: [id number] Admin: 11/22/21 08:20 Dose: 8 mg Documented by: [id number] Admin: 11/21/21 09:10 Dose: 8 mg Documented by: [id number] Admin: 11/20/21 13:14 Dose: Not Given Documented by: [id number] Admin: 11/19/21 07:57 Dose: 8 mg Documented by: [id number] Admin: 11/18/21 08:13 Dose: 8 mg Documented by: [id number] Dextrose (Dextrose 50% 50 Ml Syringe) 50 ml IV NOW ONE Stop: 11/17/21 19:36 Last Admin: 11/17/21 20:16 Dose: 50 ml Documented by: [id number] Dextrose (Dextrose 50% 50 Ml Syringe) 50 ml IV NOW STA Stop: 11/26/21 21:36 Last Admin: 11/26/21 22:03 Dose: 50 ml Documented by: [id number] Epoetin John (Epoetin John 10,000 Units/Ml Vial) 10,000 units IV ONE ONE Stop: 11/20/21 07:01 Last Admin: 11/20/21 10:43 Dose: Not Given Documented by: [id number] Epoetin John (Epoetin John 20,000 Units/Ml Vial) 20,000 units IV 0815 [facility] Stop: 11/22/21 14:00 Last Admin: 11/22/21 11:30 Dose: 20,000 units Documented by: [id number] Epoetin John (Epoetin John 20,000 Units/Ml Vial) 20,000 units IV ONE ONE Stop: 11/24/21 07:01 Last Admin: 11/24/21 16:55 Dose: 20,000 units Documented by: [id number] Folic Acid (Folic Acid 1 Mg Tab) 1 mg PO BID [facility] Stop: 12/18/21 08:59 Last Admin: 11/26/21 21:39 Dose: Not Given Documented by: [id number] Admin: 11/26/21 08:25 Dose: 1 mg Documented by: [id number] Admin: 11/25/21 20:09 Dose: 1 mg Documented by: [id number] Admin: 11/25/21 07:53 Dose: 1 mg Documented by: [id number] Admin: 11/24/21 20:44 Dose: 1 mg Documented by: [id number] Admin: 11/24/21 11:44 Dose: 1 mg Documented by: [id number] Admin: 11/23/21 22:17 Dose: 1 mg Documented by: [id number] Admin: 11/23/21 08:32 Dose: 1 mg Documented by: [id number] Admin: 11/22/21 21:14 Dose: 1 mg Documented by: [id number] Admin: 11/22/21 08:18 Dose: 1 mg Documented by: [id number] Admin: 11/21/21 19:51 Dose: 1 mg Documented by: [id number] Admin: 11/21/21 09:08 Dose: 1 mg Documented by: [id number] Admin: 11/20/21 20:46 Dose: 1 mg Documented by: [id number] Admin: 11/20/21 13:14 Dose: Not Given Documented by: [id number] Admin: 11/19/21 21:46 Dose: 1 mg Documented by: [id number] Admin: 11/19/21 07:57 Dose: 1 mg Documented by: [id number] Admin: 11/18/21 20:44 Dose: 1 mg Documented by: [id number] Admin: 11/18/21 08:11 Dose: 1 mg Documented by: [id number] Heparin Sodium (Porcine) (Heparin Sod (Porcine) 1000 Unit/Ml) 2,000 units IV ONE ONE Stop: 11/20/21 07:01 Last Admin: 11/20/21 10:43 Dose: Not Given Documented by: [id number] Heparin Sodium (Porcine) (Heparin Sod (Porcine) 1000 Unit/Ml) 400 units IV Q1H [facility] Stop: 11/20/21 09:01 Last Admin: 11/20/21 10:44 Dose: Not Given Documented by: [id number] Admin: 11/20/21 10:44 Dose: Not Given Documented by: [id number] Admin: 11/20/21 10:43 Dose: Not Given Documented by: [id number] Heparin Sodium (Porcine) (Heparin Sod (Porcine) 1000 Unit/Ml) 1,000 units IV ONE ONE Stop: 11/22/21 07:52 Last Admin: 11/22/21 10:26 Dose: Not Given Documented by: [id number] Sodium Chloride (Nss) 500 mls @ 999 mls/hr IV .Q31M ONE Stop: 11/17/21 16:41 Last Infusion: 11/17/21 18:36 Dose: 0 mls/hr Documented by: [id number] Admin: 11/17/21 16:15 Dose: 999 mls/hr Documented by: [id number] Pantoprazole Sodium 40 mg/ (Syringe) 10 mls @ 5 mls/min IV NOW ONE Stop: 11/17/21 16:17 Last Admin: 11/17/21 17:34 Dose: 5 mls/min Documented by: [id number] Octreotide Acetate 500 mcg/ (Dextrose) 105 mls @ 10.5 mls/hr IV .Q10H [facility] Stop: 12/17/21 16:29 Last Infusion: 11/18/21 01:39 Dose: 0 mcg/hr, 0 mls/hr Documented by: [id number] Admin: 11/17/21 17:35 Dose: 50 mcg/hr, 10.5 mls/hr Documented by: [id number] Sodium Chloride (Nss) 500 mls @ 999 mls/hr IV .Q31M ONE Stop: 11/17/21 18:19 Last Infusion: 11/17/21 18:36 Dose: 0 mls/hr Documented by: [id number] Admin: 11/17/21 18:21 Dose: 999 mls/hr Documented by: [id number] Potassium Phosphate 6 mmol/ (Dextrose) 252 mls @ 252 mls/hr IV 1815 ONE Stop: 11/17/21 19:14 Last Infusion: 11/17/21 22:15 Dose: 0 mls/hr Documented by: [id number] Admin: 11/17/21 18:22 Dose: 252 mls/hr Documented by: [id number] Potassium Chloride (K Miguel / Wtr) 10 meq in 100 mls @ 100 mls/hr IV Q1H [facility]; Protocol Stop: 11/17/21 20:29 Last Infusion: 11/18/21 01:39 Dose: 0 mls/hr Documented by: [id number] Admin: 11/18/21 00:43 Dose: 100 mls/hr Documented by: [id number] Infusion: 11/17/21 21:16 Dose: 100 mls/hr Documented by: [id number] Admin: 11/17/21 20:16 Dose: 100 mls/hr Documented by: [id number] Magnesium Sulfate/Dextrose (Magnesium Sulfate / D5w) 1 gm in 100 mls @ 100 mls/hr IV Q1H [facility] Stop: 11/17/21 21:44 Last Infusion: 11/17/21 23:22 Dose: 0 mls/hr Documented by: [id number] Admin: 11/17/21 22:07 Dose: 100 mls/hr Documented by: [id number] Infusion: 11/17/21 21:17 Dose: 100 mls/hr Documented by: [id number] Admin: 11/17/21 20:17 Dose: 100 mls/hr Documented by: [id number] Albumin Human (Albumin 25% 100 Ml) 25 gm in 100 mls @ 50 mls/hr IV ONE ONE Stop: 11/17/21 21:48 Last Infusion: 11/17/21 22:15 Dose: 0 mls/hr Documented by: [id number] Admin: 11/17/21 20:17 Dose: 50 mls/hr Documented by: [id number] Ceftriaxone Sodium (Rocephin) 1,000 mg in 50 mls @ 100 mls/hr IV NOW STA Stop: 11/17/21 20:19 Last Infusion: 11/17/21 22:15 Dose: 0 mls/hr Documented by: [id number] Admin: 11/17/21 20:17 Dose: 100 mls/hr Documented by: [id number] Dexamethasone 4 mg/ Syringe 1 mls @ 1 mls/min IV ONE ONE Stop: 11/17/21 20:01 Last Admin: 11/17/21 20:34 Dose: 1 mls/min Documented by: [id number] Albumin Human (Albumin 25% 100 Ml) 25 gm in 100 mls @ 50 mls/hr IV ONE STA Stop: 11/18/21 00:09 Last Infusion: 11/18/21 03:37 Dose: 0 mls/hr Documented by: [id number] Admin: 11/18/21 01:30 Dose: 50 mls/hr Documented by: [id number] Albumin Human (Albumin 25%) 12.5 gm in 50 mls @ 50 mls/hr IV Q6H [facility] Stop: 11/21/21 00:59 Last Infusion: 11/18/21 14:07 Dose: 0 mls/hr Documented by: [id number] Admin: 11/18/21 12:33 Dose: 50 mls/hr Documented by: [id number] Infusion: 11/18/21 10:01 Dose: 0 mls/hr Documented by: [id number] Admin: 11/18/21 08:09 Dose: 50 mls/hr Documented by: [id number] Infusion: 11/18/21 04:37 Dose: 0 mls/hr Documented by: [id number] Admin: 11/18/21 03:27 Dose: 50 mls/hr Documented by: [id number] Daptomycin 325 mg/ Syringe 6.5 mls @ 3.25 mls/min IV Q48H [facility]; Protocol Stop: 11/20/21 01:59 Last Admin: 11/18/21 03:27 Dose: 3.25 mls/min Documented by: [id number] Dexamethasone 4 mg/ Syringe 1 mls @ 1 mls/min IV ONE ONE Stop: 11/18/21 04:31 Last Admin: 11/18/21 04:59 Dose: 1 mls/min Documented by: [id number] Ceftriaxone Sodium 2,000 mg/ (Dextrose) 70 mls @ 140 mls/hr IV Q24H [facility]; Protocol Stop: 11/28/21 13:59 Last Infusion: 11/19/21 15:41 Dose: 0 mls/hr Documented by: [id number] Admin: 11/19/21 15:03 Dose: 140 mls/hr Documented by: [id number] Infusion: 11/18/21 16:20 Dose: 0 mls/hr Documented by: [id number] Admin: 11/18/21 15:17 Dose: 140 mls/hr Documented by: [id number] Albumin Human (Albumin 5%) 250 mls @ 50 mls/hr IV ONE ONE Stop: 11/18/21 23:14 Last Infusion: 11/18/21 23:29 Dose: 0 mls/hr Documented by: [id number] Admin: 11/18/21 18:24 Dose: 50 mls/hr Documented by: [id number] Sodium Chloride (Nss) 500 mls @ 100 mls/hr IV .Q5H [facility] Stop: 11/19/21 13:29 Last Infusion: 11/19/21 15:23 Dose: 0 mls/hr Documented by: [id number] Admin: 11/19/21 09:50 Dose: 100 mls/hr Documented by: [id number] Daptomycin 325 mg/ Syringe 6.5 mls @ 3.25 mls/min IV Q48H [facility]; Protocol Stop: 11/30/21 11:59 Last Admin: 11/22/21 14:19 Dose: 3.25 mls/min Documented by: [id number] Admin: 11/20/21 13:21 Dose: 3.25 mls/min Documented by: [id number] Meropenem 500 mg/ Syringe 10 mls @ 2 mls/min IV Q24H [facility]; Protocol Stop: 11/30/21 13:59 Last Admin: 11/22/21 14:19 Dose: 2 mls/min Documented by: [id number] Admin: 11/21/21 16:44 Dose: 2 mls/min Documented by: [id number] Admin: 11/20/21 15:06 Dose: 2 mls/min Documented by: [id number] Lactated Ringer's (Lr) 500 mls @ 999 mls/hr IV .Q31M ONE Stop: 11/20/21 16:47 Last Infusion: 11/20/21 18:05 Dose: 0 mls/hr Documented by: [id number] Admin: 11/20/21 17:13 Dose: 999 mls/hr Documented by: [id number] Lactated Ringer's (Lr) 1,000 mls @ 999 mls/hr IV .Q1H1M ONE Stop: 11/20/21 18:43 Last Infusion: 11/20/21 19:06 Dose: 0 mls/hr Documented by: [id number] Admin: 11/20/21 18:05 Dose: 999 mls/hr Documented by: [id number] Lactated Ringer's (Lr) 1,000 mls @ 125 mls/hr IV .Q8H [facility] Stop: 11/21/21 01:44 Last Infusion: 11/21/21 03:31 Dose: 0 mls/hr Documented by: [id number] Admin: 11/20/21 19:31 Dose: 125 mls/hr Documented by: [id number] Dexamethasone 4 mg/ Syringe 1 mls @ 1 mls/min IV ONE ONE Stop: 11/20/21 20:16 Last Admin: 11/20/21 20:45 Dose: 1 mls/min Documented by: [id number] Azithromycin 500 mg/ Dextrose 255 mls @ 127.5 mls/hr IV NOW STA Stop: 11/20/21 22:03 Last Infusion: 11/20/21 22:45 Dose: 0 mls/hr Documented by: [id number] Admin: 11/20/21 20:45 Dose: 127.5 mls/hr Documented by: [id number] Albumin Human (Albumin 25%) 12.5 gm in 50 mls @ 50 mls/hr IV TODAY@0815 [facility] Stop: 11/22/21 11:00 Last Infusion: 11/22/21 11:07 Dose: 0 mls/hr Documented by: [id number] Admin: 11/22/21 10:07 Dose: 50 mls/hr Documented by: [id number] Albumin Human (Albumin 25%) 12.5 gm in 50 mls @ 50 mls/hr IV TODAY@1000 [facility] Stop: 11/22/21 14:00 Last Infusion: 11/22/21 12:30 Dose: 0 mls/hr Documented by: [id number] Admin: 11/22/21 11:30 Dose: 50 mls/hr Documented by: [id number] Albumin Human (Albumin 25%) 12.5 gm in 50 mls @ 50 mls/hr IV TODAY@0701 [facility] Stop: 11/24/21 19:00 Last Infusion: 11/24/21 23:08 Dose: 0 mls/hr Documented by: [id number] Admin: 11/24/21 17:56 Dose: 50 mls/hr Documented by: [id number] Albumin Human (Albumin 25%) 12.5 gm in 50 mls @ 50 mls/hr IV TODAY@0700 [facility] Stop: 11/24/21 19:00 Last Infusion: 11/24/21 23:07 Dose: 0 mls/hr Documented by: [id number] Admin: 11/24/21 16:20 Dose: 50 mls/hr Documented by: [id number] Piperacillin Sod/Tazobactam (Sod 3.375 gm/ Dextrose) 115 mls @ 230 mls/hr IV NOW [facility]; Protocol Stop: 11/25/21 08:29 Last Infusion: 11/25/21 08:36 Dose: 0 mls/hr Documented by: [id number] Admin: 11/25/21 08:06 Dose: 230 mls/hr Documented by: [id number] Piperacillin Sod/Tazobactam (Sod 3.375 gm/ Dextrose) 115 mls @ 28.75 mls/hr IV Q12H [facility]; Protocol Stop: 12/05/21 15:59 Last Infusion: 11/26/21 20:53 Dose: 0 mls/hr Documented by: [id number] Admin: 11/26/21 16:38 Dose: 28.8 mls/hr Documented by: [id number] Infusion: 11/26/21 09:00 Dose: 0 mls/hr Documented by: [id number] Admin: 11/26/21 05:00 Dose: 28.8 mls/hr Documented by: [id number] Infusion: 11/25/21 20:45 Dose: 0 mls/hr Documented by: [id number] Admin: 11/25/21 16:00 Dose: 28.8 mls/hr Documented by: [id number] Vancomycin HCl 1,250 mg/ (Sodium Chloride) 275 mls @ 200 mls/hr IV ONE ONE; Protocol Stop: 11/26/21 20:52 Last Infusion: 11/27/21 00:39 Dose: 0 mls/hr Documented by: [id number] Admin: 11/26/21 22:59 Dose: 200 mls/hr Documented by: [id number] Acyclovir Sodium 325 mg/ (Dextrose) 256.5 mls @ 250 mls/hr IV TODAY@1600 [facility]; Protocol Stop: 12/06/21 19:29 Last Infusion: 11/26/21 23:33 Dose: 0 mls/hr Documented by: [id number] Admin: 11/26/21 22:25 Dose: 250 mls/hr Documented by: [id number] Calcium Gluconate 1,000 mg/ (Dextrose) 60 mls @ 240 mls/hr IV NOW ONE Stop: 11/26/21 21:59 Last Infusion: 11/26/21 22:08 Dose: 0 mls/hr Documented by: [id number] Admin: 11/26/21 21:38 Dose: 240 mls/hr Documented by: [id number] Lorazepam (Ativan) 1 mg in 2 mls @ 2 mls/min IV NOW STA Stop: 11/26/21 21:24 Last Admin: 11/26/21 23:00 Dose: Not Given Documented by: [id number] Levetiracetam 1,000 mg/ Sodium (Chloride) 110 mls @ 440 mls/hr IV NOW STA Stop: 11/26/21 21:47 Last Infusion: 11/26/21 22:11 Dose: 0 mls/hr Documented by: [id number] Admin: 11/26/21 21:54 Dose: 440 mls/hr Documented by: [id number] Insulin Human Regular 10 units (/ Syringe) 10 mls @ 10 mls/min IV NOW STA Stop: 11/26/21 21:38 Last Admin: 11/26/21 21:54 Dose: 10 mls/min Documented by: [id number] Cosigned by: [id number] Magnesium Sulfate/Dextrose (Magnesium Sulfate / D5w) 1 gm in 100 mls @ 50 mls/hr IV Q2H [facility] Stop: 11/27/21 01:59 Last Admin: 11/27/21 00:35 Dose: 50 mls/hr Documented by: [id number] Infusion: 11/27/21 00:17 Dose: 0 mls/hr Documented by: [id number] Admin: 11/26/21 22:07 Dose: 50 mls/hr Documented by: [id number] Lorazepam (Ativan) 1 mg in 2 mls @ 2 mls/min IV Q2H PRN PRN Reason: Breakthrough Seizures Stop: 12/26/21 22:10 Last Admin: 11/26/21 22:40 Dose: 2 mls/min Documented by: [id number] Lorazepam (Ativan) 1 mg in 2 mls @ 2 mls/min IV NOW STA Stop: 11/26/21 22:37 Last Admin: 11/26/21 23:01 Dose: Not Given Documented by: [id number] Propofol (Diprivan) 1,000 mg in 100 mls @ 7.812 mls/hr IV .[id number] [facility]; Protocol Stop: 11/30/21 02:14 Last Admin: 11/27/21 02:37 Dose: 20 mcg/kg/min, 7.8 mls/hr Documented by: [id number] Cosigned by: [id number] Lactulose (Lactulose Syrup 20 Gm/30 Ml Udc) 20 gm PO BID [facility] Stop: 12/22/21 20:59 Last Admin: 11/24/21 20:50 Dose: Not Given Documented by: [id number] Admin: 11/24/21 11:45 Dose: Not Given Documented by: [id number] Admin: 11/23/21 21:44 Dose: Not Given Documented by: [id number] Admin: 11/23/21 07:49 Dose: Not Given Documented by: [id number] Admin: 11/22/21 21:37 Dose: Not Given Documented by: [id number] Loperamide HCl (Loperamide Hcl 2 Mg Cap) 2 mg PO NOW STA Stop: 11/23/21 07:55 Last Admin: 11/23/21 08:35 Dose: 2 mg Documented by: [id number] Lorazepam (Lorazepam 0.5 Mg Tab) 0.5 mg PO TID PRN PRN Reason: Anxiety Stop: 12/17/21 22:27 Last Admin: 11/26/21 08:25 Dose: 0.5 mg Documented by: [id number] Admin: 11/25/21 20:00 Dose: 0.5 mg Documented by: [id number] Admin: 11/25/21 08:06 Dose: 0.5 mg Documented by: [id number] Admin: 11/24/21 20:42 Dose: 0.5 mg Documented by: [id number] Admin: 11/23/21 22:17 Dose: 0.5 mg Documented by: [id number] Admin: 11/19/21 21:47 Dose: 0.5 mg Documented by: [id number] Admin: 11/19/21 15:23 Dose: 0.5 mg Documented by: [id number] Admin: 11/19/21 07:57 Dose: 0.5 mg Documented by: [id number] Admin: 11/18/21 20:44 Dose: 0.5 mg Documented by: [id number] Admin: 11/18/21 17:21 Dose: 0.5 mg Documented by: [id number] Admin: 11/18/21 08:10 Dose: 0.5 mg Documented by: [id number] Admin: 11/17/21 23:49 Dose: 0.5 mg Documented by: [id number] Magnesium Oxide (Magnesium Oxide 400 Mg Tab) 400 mg PO BID [facility] Stop: 12/22/21 20:59 Last Admin: 11/26/21 21:39 Dose: Not Given Documented by: [id number] Admin: 11/26/21 08:25 Dose: 400 mg Documented by: [id number] Admin: 11/25/21 20:08 Dose: 400 mg Documented by: [id number] Admin: 11/25/21 07:52 Dose: 400 mg Documented by: [id number] Admin: 11/24/21 20:44 Dose: 400 mg Documented by: [id number] Admin: 11/24/21 11:41 Dose: 400 mg Documented by: [id number] Admin: 11/23/21 22:17 Dose: 400 mg Documented by: [id number] Admin: 11/23/21 08:33 Dose: 400 mg Documented by: [id number] Admin: 11/22/21 21:14 Dose: 400 mg Documented by: [id number] Metronidazole (Metronidazole 500 Mg Tab) 500 mg PO NOW STA Stop: 11/17/21 20:51 Last Admin: 11/17/21 22:09 Dose: 500 mg Documented by: [id number] Metronidazole (Metronidazole 500 Mg Tab) 500 mg PO Q8H [facility] Stop: 11/29/21 14:29 Last Admin: 11/20/21 07:03 Dose: 500 mg Documented by: [id number] Admin: 11/19/21 21:46 Dose: 500 mg Documented by: [id number] Admin: 11/19/21 15:03 Dose: 500 mg Documented by: [id number] Midodrine (Midodrine Hcl 2.5 Mg Tab) 5 mg PO ONE STA Stop: 11/24/21 08:50 Last Admin: 11/24/21 15:44 Dose: 5 mg Documented by: [id number] Miscellaneous (Stat Iv) 1 ea N/A NOW STA Stop: 11/17/21 16:17 Last Admin: 11/17/21 17:36 Dose: 1 ea Documented by: [id number] Miscellaneous (Midodrine With Hd - Pending Order) 1 ea N/A DAILY@0700 [facility] Stop: 12/24/21 06:59 Last Admin: 11/26/21 08:26 Dose: Not Given Documented by: [id number] Admin: 11/25/21 10:25 Dose: Not Given Documented by: [id number] Admin: 11/24/21 11:44 Dose: 1 ea Documented by: [id number] Miscellaneous (Rapid Sequence Induction Bag) Confirm Administered Dose 1 ea .ROUTE .STK-MED ONE Stop: 11/27/21 01:41 Last Admin: 11/27/21 03:00 Dose: 1 ea Documented by: [id number] Morphine Sulfate (Morphine Sulfate 4 Mg/Ml 1 Ml Carp\Vial) 4 mg IV Q4 PRN PRN Reason: Pain Stop: 12/08/21 10:04 Last Admin: 11/25/21 20:00 Dose: 4 mg Documented by: [id number] Admin: 11/25/21 07:53 Dose: 4 mg Documented by: [id number] Naloxone HCl (Naloxone Hcl 0.4 Mg/1 Ml Vial/Carp) 0.4 mg IV NOW STA Stop: 11/26/21 16:59 Last Admin: 11/26/21 17:05 Dose: 0.4 mg Documented by: [id number] Nitazoxanide (Nitazoxanide 500 Mg Tab) 500 mg PO BID [facility] Stop: 12/06/21 21:01 Last Admin: 11/26/21 21:39 Dose: Not Given Documented by: [id number] Admin: 11/26/21 08:25 Dose: 500 mg Documented by: [id number] Admin: 11/25/21 20:08 Dose: 500 mg Documented by: [id number] Admin: 11/25/21 07:52 Dose: 500 mg Documented by: [id number] Admin: 11/24/21 20:44 Dose: 500 mg Documented by: [id number] Admin: 11/24/21 11:43 Dose: 500 mg Documented by: [id number] Admin: 11/23/21 22:17 Dose: 500 mg Documented by: [id number] Nitazoxanide (Nitazoxanide 500 Mg Tab) 500 mg PO .EXTRA DOSE ONE Stop: 11/23/21 12:46 Last Admin: 11/23/21 13:55 Dose: 500 mg Documented by: [id number] Octreotide Acetate (Octreotide Bolus From Bag) 50 mcg IV ONE ONE Stop: 11/17/21 17:16 Last Admin: 11/17/21 17:36 Dose: 50 mcg Documented by: [id number] Oseltamivir Phosphate (Oseltamivir Phosphate Susp 30 Mg/5 Ml Udp) 30 mg PO NOW STA; Protocol Stop: 11/17/21 20:19 Last Admin: 11/17/21 21:14 Dose: 30 mg Documented by: [id number] Pantoprazole Sodium (Pantoprazole 40 Mg Tab) 40 mg PO QA [facility] Stop: 12/18/21 08:59 Last Admin: 11/26/21 08:25 Dose: 40 mg Documented by: [id number] Admin: 11/25/21 07:52 Dose: 40 mg Documented by: [id number] Admin: 11/24/21 11:42 Dose: 40 mg Documented by: [id number] Admin: 11/23/21 08:32 Dose: 40 mg Documented by: [id number] Admin: 11/22/21 08:19 Dose: 40 mg Documented by: [id number] Admin: 11/21/21 09:08 Dose: 40 mg Documented by: [id number] Admin: 11/20/21 13:14 Dose: Not Given Documented by: [id number] Admin: 11/19/21 07:57 Dose: 40 mg Documented by: [id number] Admin: 11/18/21 08:11 Dose: 40 mg Documented by: [id number] Potassium Chloride (Potassium Chloride Crtab 20 Meq Tabcr) 40 meq PO NOW STA Stop: 11/20/21 19:39 Last Admin: 11/20/21 20:45 Dose: 40 meq Documented by: [id number] Potassium Phosphate (Potassium Phos 3 Mmol/1 Ml Infusion) 6 mmol IV NOW STA Stop: 11/17/21 17:20 Last Admin: 11/17/21 18:23 Dose: Not Given Documented by: [id number] Potassium Phosphate (Pot Phosphate Monobasic W/ Sod Tab) 1 tab PO QID [facility] Stop: 12/22/21 12:59 Last Admin: 11/24/21 17:18 Dose: Not Given Documented by: [id number] Admin: 11/24/21 11:41 Dose: Not Given Documented by: [id number] Admin: 11/24/21 11:40 Dose: 1 tab Documented by: [id number] Admin: 11/23/21 22:17 Dose: 1 tab Documented by: [id number] Admin: 11/23/21 17:34 Dose: 1 tab Documented by: [id number] Admin: 11/23/21 13:55 Dose: 1 tab Documented by: [id number] Admin: 11/23/21 08:33 Dose: 1 tab Documented by: [id number] Admin: 11/22/21 21:13 Dose: 1 tab Documented by: [id number] Admin: 11/22/21 19:01 Dose: 1 tab Documented by: [id number] Admin: 11/22/21 14:21 Dose: 1 tab Documented by: [id number] Prednisone (Prednisone 5 Mg Tab) 5 mg PO QAM [facility] Stop: 12/19/21 08:59 Last Admin: 11/26/21 08:25 Dose: 5 mg Documented by: [id number] Admin: 11/25/21 07:52 Dose: 5 mg Documented by: [id number] Admin: 11/24/21 11:42 Dose: 5 mg Documented by: [id number] Admin: 11/23/21 08:33 Dose: 5 mg Documented by: [id number] Admin: 11/22/21 08:19 Dose: 5 mg Documented by: [id number] Admin: 11/21/21 09:08 Dose: 5 mg Documented by: [id number] Admin: 11/20/21 13:15 Dose: Not Given Documented by: [id number] Admin: 11/18/21 08:11 Dose: 5 mg Documented by: [id number] Rifaximin (Rifaximin 550 Mg Tablet) 550 mg PO BID [facility] Stop: 12/20/21 20:59 Last Admin: 11/26/21 21:39 Dose: Not Given Documented by: [id number] Admin: 11/26/21 08:25 Dose: 550 mg Documented by: [id number] Admin: 11/25/21 20:08 Dose: 550 mg Documented by: [id number] Admin: 11/25/21 07:52 Dose: 550 mg Documented by: [id number] Admin: 11/24/21 20:44 Dose: 550 mg Documented by: [id number] Admin: 11/24/21 11:41 Dose: 550 mg Documented by: [id number] Admin: 11/23/21 22:17 Dose: 550 mg Documented by: [id number] Admin: 11/23/21 08:32 Dose: 550 mg Documented by: [id number] Admin: 11/22/21 21:14 Dose: 550 mg Documented by: [id number] Admin: 11/22/21 08:19 Dose: 550 mg Documented by: [id number] Admin: 11/21/21 19:51 Dose: 550 mg Documented by: [id number] Admin: 11/21/21 09:08 Dose: 550 mg Documented by: [id number] Admin: 11/20/21 20:46 Dose: 550 mg Documented by: [id number] Sevelamer HCl (Sevelamer Hcl 800 Mg Tablet) 800 mg PO TIDM ALLY Stop: 12/18/21 07:59 Last Admin: 11/18/21 08:10 Dose: 800 mg Documented by: [id number] Sevelamer HCl (Sevelamer Hcl 800 Mg Tablet) 800 mg PO TIDM ALLY Stop: 12/26/21 16:59 Last Admin: 11/26/21 18:05 Dose: Not Given Documented by: [id number] Trimethoprim/Sulfamethoxazole (Sulfamethoxazole/Trimethoprim Ds 800/160mg Tab) 1 tab PO MoWeFr ALLY Stop: 12/20/21 08:59 Last Admin: 11/20/21 11:48 Dose: Not Given Documented by: [id number] Zolpidem Tartrate (Zolpidem Tartrate 5 Mg Tab) 5 mg PO HS PRN PRN Reason: Sleep Stop: 12/25/21 02:08 Last Admin: 11/25/21 02:48 Dose: 5 mg Documented by: [id number] Description This is a 21 electrode EEG with a single channel dedicated to limited EKG. The electrodes were placed in accordance with the International 10-20 system.This EEG was done as a bedside recording with simultaneous video analysis of patient movement and behavior. Photic stimulation was performed During most of the tracing the patient appeared to be somnolent with eye deviation to the right and eye deviation to the right a little worse of movements early on did produce muscle artifact on the recording. The tracing itself revealed no normal background in the alpha range but rather a mid theta rhythm at about 6 to 8 Hz. Maximum posterior head regions of up to 20 to 30 V in amplitude and symmetrical distribution. Polymorphic mid to lower frequency theta activity with occasional waveforms in the delta range was seen over all head regions maximal centrally and in a symmetrical fashion without any focal predominance. Beta activity was seen bifrontally. Photic simulation reveals a midline response No potentially epileptiform discharges were noted Interpretation This EEG reveals evidence for moderate generalized nonspecific nonfocal encephalopathy without potentially epileptogenic features Clinical Correlation This EEG reveals evidence for a nonfocal generalized encephalopathy without potentially epileptic discharges. This may be a post ictal state and the absence of ongoing seizure activity or potential epileptogenic activity does not exclude the diagnosis of seizure disorder and clinical correlation is required Ever White MD
--- NOTE | 2021-11-29 19:36 | Communication Note ---
Date of Service: November 29, 2021 Made aware by phlebotomy lab assistant of yeast growth on 2 blood CS. Lab requested to fax results to [facility] where patient currently admitted.
== END 2021-11-27 04:00 | disposition short-term general hospital (02) | DRG 871 ==
LOC: ED 15:34 → 1E 21:18 → SUATTDRO 21:18 → 1E 22:15 → 2S 11-23 11:49 → 1E 11-27 02:10
DX: R56.9 Unspecified convulsions; D84.9 Immunodeficiency, unspecified; I50.32 Chronic diastolic (congestive) heart failure; G03.9 Meningitis, unspecified; E87.2 Acidosis; E83.39 Other disorders of phosphorus metabolism; K56.7 Ileus, unspecified; A41.89 Other specified sepsis; I95.89 Other hypotension; E87.6 Hypokalemia; D59.12 Cold autoimmune hemolytic anemia; G04.90 Encephalitis and encephalomyelitis, unspecified; G91.2 (Idiopathic) normal pressure hydrocephalus; K70.31 Alcoholic cirrhosis of liver with ascites; E83.42 Hypomagnesemia; I27.20 Pulmonary hypertension, unspecified; J10.1 Influenza due to other identified influenza virus with other respiratory manifestations; J96.11 Chronic respiratory failure with hypoxia; I50.812 Chronic right heart failure; Z99.2 Dependence on renal dialysis; I12.0 Hypertensive chronic kidney disease with stage 5 chronic kidney disease or end stage renal disease; Z87.891 Personal history of nicotine dependence; N18.6 End stage renal disease; Z86.19 Personal history of other infectious and parasitic diseases; Z99.81 Dependence on supplemental oxygen; A07.2 Cryptosporidiosis